=== PATIENT | male | born 1940 | race Caucasian/White ===

== ENCOUNTER 2025-09-21 18:24 | Inpatient (IN) | payer MEDICARE, OTHER, SELFPAY ==
[2025-09-21 17:35] VITALS: BMI 27.1
--- OUTSIDE RECORDS SUMMARY | 2025-09-21 17:37 | XMS RPT_ITS | CCD ---
Author Organization [facility] Care Team Providers Care Rental Counter Clerk Name Role Phone GUIDO([facility] [place] [place] Unavailable Unavailab Palmer([facility] [place] [place] Unavailable UnavailLINDSEY Solomon Unavailable Unavailable GUIDO([facility] [place] [place] Unavailable UnavailLINDSEY Solomon Unavailable Unavailable GUIDO([facility] [place] [place] Unavailable Unavailab Palmer([facility] [place]), [place] Unavailable UnavailLindsey Solomon Primary Care Provider [facility], [facility] Unavailable Unavailable Yung Ahmed A Unavailable Julita Stevens Unavailable Nancy Underwood Unavailable Yung MILLER, Ahmed A Unavailable Nancy Underwood APRN, CNP Unavailable [phone] Monalisa Arevalo APRN, CNP Unavailable [phone] [facility] LICENSED THERAPIST, Xiao Primary Care Provider LINDSEY LANDAVERDE Primary Care Provider [phone] MD SARAHI MCNAMARA Emergency Provider MYNOR GONZALEZ MD Attending Unavailable MYNOR GONZALEZ MD Primary Care Unavailable MYNOR GONZALEZ MD Admitting Unavailable ESC, XIAO Primary Care Provider [phone] MD VALENTE PARKER Emergency Provider MD MELISA CAREY Admit Provider MD MELISA CAREY Attending Provider MD VENANCIO LU Provider MD MONTRELL EDWARD Primary Care Provider [phone] MD KY DENIZ Emergency Provider Unavailable MD PRESTON BERKOWITZ Admit Provider MD PRESTON BERKOWITZ Attending Provider ESCH, XIAO Attending Provider MONTRELL EDWARD MD Primary Care Provider BRYANNA GAFFNEY MD Emergency Provider [phone] KHALIF ZAYAS MD Admit Provider KHALIF ZAYAS MD Attending Provider [phone] JAEL ASHLEY DO Primary Care Provider Unavaila BRYANNA Vaughan MD Emergency Provider RL MARTINES MD Admit Provider Unavailable RL MARTINES MD Attending Provider Unavailab le ESCH, XIAO Attending Unavailable MONTRELL EDWARD Primary Care Unavailable ESCH, XIAO Attending Unavailable GEOVANNYOSTCHULA LIMONLAS Arianna Primary Care Unavailable ESCH, XIAO Attending Unavailable VIROSTBRAXTON, MONTRELL J Primary Care Unavailable RL MARTINES Admitting Unavailable RL MARTINES Attending Unavailable JAEL ASHLEY Primary Care Unavailable DEMYDA, KHALIF Attending Unavailable VIROSTBRAXTON, MONTRELL J Primary Care Unavailable CHANA KHALIF Admitting Unavailable ESCH, XIAO Attending Unavailable VIROSTKO, MONTRELL J Primary Care Unavailable ESCH, XIAO Attending Unavailable MONTRELL EDWARD Primary Care Unavailable Allergies Allergy Classification Reported Allergen(s) Allergy Type Date of Onset Reaction(s) Facility (20 sources) Morphine; Translations: [MORPHINE] Drug Allergy 6 Other (See Comments) [facility] (10 sources) Sulfonamides (Antibiotic) Propensity to adverse reactions to drug 2 [facility] (20 sources) Sulfonamides (Antibiotic); Translations: [SULFANILAMIDES] Allergy to substance 1 [facility] (1 source) Morphine Drug Allergy 5 [facility] Repository Medications Current Medications Medication Drug Class(es) Dates Sig (Normalized) Sig (Original) acetaminophen 500 mg oral tablet (20 sources) Start: 06-01-2023 take 1 tablet by mouth twice daily Acetaminophen (Acetaminophen Extra Strength) 500 MG Tablet Active 500 MG PO Two Times A Day June 01, 2023 12:00am Start: 08-25-2021 take 1 tablet by karie th twice daily Acetaminophen (Tylenol 325 Mg Tablet) 325 MG Tablet Active 500 MG PO Two Times A Day August 25, 2021 5:08pm acetaminophen 325 mg / HYDROcodone bitartrate 5 mg oral tablet (8 sources) Opioid Agonist Start: 09-05-2022 hydrocodone 5 mg-acetaminophen 325 mg tablet 09/05/2022 active Not Available Not Available Not Available Start: 09-01-2022 take 1 tablet by karie th three times daily Hydrocodone Bit/Acetaminophen (Cecil 5/325 Mg Tablet) 1 EACH Tablet Active 1 EACH PO Three Times A Day September 01, 2022 12:00am aspirin 81 mg delayed release oral tablet (20 sources) Platelet Aggregation Inhibitor, Nonsteroidal Anti-inflammatory Drug Start: 11-15-2024 take 1 tablet by mouth once daily aspirin 81 mg tablet,delayed release TAKE 1 TABLET BY MOUTH EVERY DAY 11/15/2024 active Not Available Not Available Not Available Start: 02-04-2021 take 1 tablet by karie th once daily aspirin EC (ASPIRIN ADULT LOW STRENGTH) 81 MG EC tablet Take 1 tablet by mouth daily. 90 tablet 3 02/04/2021 Active Start: 10-13-2020 take 1 tablet by karie th once daily Aspirin (Aspirin 81 Mg Chew Tablet) 81 MG Tablet Active 81 MG PO Daily October 13, 2020 1:00am Start: 10-13-2020 take 1 tablet by karie th once daily Aspirin (Aspirin 81 Mg Chew Tablet) 81 MG Tablet Active 81 MG PO Daily October 13, 2020 1:00am Start: 07-31-2020 take 1 tablet by karie th once daily aspirin EC (ECOTRIN LOW STRENGTH) 81 MG EC tablet Take 1 tablet by mouth daily. 30 tablet 5 07/31/2020 Active Blood Glucose Calibration (CONTROL) Normal SOLN (10 sources) Start: 03-11-2020 Blood Glucose Calibration (CONTROL) Normal SOLN Indications: Type 2 diabetes mellitus without complication, without long-term current use of insulin (HCC) As directed 1 each 3 03/11/2020 Active Blood Glucose Monitoring Suppl JOSEPH (10 sources) Start: 03-12-2020 Blood Glucose Monitoring Suppl JOSEPH Indications: Type 2 diabetes mellitus without complication, without long-term current use of insulin (HCC) Test once daily Diagnosis: Type 2 DM 250.00 (ICD-10 E11.9) Length of need lifetime. 2 each 0 03/12/2020 Active cefdinir 300 mg oral capsule (5 sources) Cephalosporin Antibacterial Start: 07-22-2025 take 1 capsule by mouth twice daily Cefdinir (Omnicef 300 Mg Capsule) 300 MG Capsule Active 300 MG PO Two Times A Day July 22, 2025 12:00am cholecalciferol 0.05 mg oral tablet (20 sources) Vitamin D Start: 01-22-2025 take 1 tablet by mouth once daily Vitamin D3 50 mcg (2,000 unit) tablet TAKE 1 TABLET BY MOUTH DAILY. 01/22/2025 active Not Available Not Available Not Available Start: 01-13-2024 take 1 capsule by mo uth once daily Vitamin D3 50 mcg (2,000 unit) capsule TAKE 1 CAPSULE BY MOUTH DAILY. 01/13/2024 active Not Available Not Available Not Available Start: 02-19-2021 take 1 capsule by mo uth once daily Cholecalciferol (D3 SUPER STRENGTH) 50 MCG (2000 UT) CAPS Indications: Vitamin D deficiency Take 1 capsule by mouth daily. 90 capsule 3 02/19/2021 Active Start: 10-13-2020 End: 12-23-2023 take 1 tablet by mouth once daily Cholecalciferol (Vitamin D3) (Vitamin D3 1000 Unit Tablet) 1,000 UNIT Tablet Discontinued 2000 UNITS PO Daily October 13, 2020 1:00am December 23, 2023 5:38am Start: 07-31-2020 take 1 capsule by mo uth once daily Cholecalciferol (VITAMIN D) 50 MCG (2000 UT) CAPS Indications: Vitamin D deficiency Take 1 capsule by mouth daily. 30 capsule 5 07/31/2020 Active Start: 06-19-2020 take 1 capsule by mo uth once daily Cholecalciferol (VITAMIN D) 50 MCG (2000 UT) CAPS Indications: Vitamin D deficiency Take 1 capsule by mouth daily. 90 capsule 1 06/19/2020 Active Cholecalciferol (Vitamin D3) (Vitamin D3 1000 Unit Tablet) 1,000 UNIT Tablet (15 sources) Start: 07-19-2025 take 1 tablet by mouth once daily Cholecalciferol (Vitamin D3) (Vitamin D3 1000 Unit Tablet) 1,000 UNIT Tablet Active 2000 UNIT PO Daily July 19, 2025 12:00am Start: 10-22-2024 take 1 tablet by karie th once daily Cholecalciferol (Vitamin D3) (Vitamin D3 1000 Unit Tablet) 1,000 UNIT Tablet Active 2000 UNIT PO Daily October 22, 2024 1:00am Start: 10-22-2024 take 1 tablet by karie th once daily Cholecalciferol (Vitamin D3) (Vitamin D3 1000 Unit Tablet) 1,000 UNIT Tablet Active 2000 UNIT PO Daily October 22, 2024 12:00am cimetidine 400 mg oral tablet (20 sources) Histamine-2 Receptor Antagonist Start: 06-01-2023 take 1 tablet by mouth twice daily Cimetidine 400 MG Tablet Active 400 MG PO Two Times A Day June 01, 2023 12:00am Cyanocobalamin (Vitamin B-12) (Vitamin B12) 5,000 MCG Tab.Chew (5 sources) Start: 07-19-2025 take 1 tablet by mouth once daily Cyanocobalamin (Vitamin B-12) (Vitamin B12) 5,000 MCG Tab.Chew Active 5000 MCG PO Daily July 19, 2025 12:00am dexlansoprazole 60 mg delayed release oral capsule (20 sources) Proton Pump Inhibitor Start: 12-26-2024 take 1 capsule by mouth once daily dexlansoprazole 60 mg capsule,biphase delayed release TAKE 1 CAPSULE BY MOUTH EVERY DAY 12/26/2024 active Not Available Not Available Not Available Start: 06-01-2023 take 2 capsules by [facility] once daily Dexlansoprazole (Dexilant) 30 MG Active 60 MG PO Daily June 01, 2023 12:45am Start: 04-13-2023 take 1 capsule by [facility] twice daily Dexilant 30 mg capsule, delayed release Take 1 capsule twice a day by oral route. 04/13/2023 active Not Available Not Available Not Available Start: 08-26-2021 End: 06-01-2023 take 1 capsule by mouth once daily Dexlansoprazole (Dexilant) 30 MG Discontinued 30 MG PO Daily 30 0 August 26, 2021 1:00am June 01, 2023 12:45am Divalproex Sodium (Depakote) 125 MG Tablet.Dr (20 sources) Start: 08-11-2021 take 1 tablet by mouth once daily in the morning, then take 1 tablet by mouth twice daily Divalproex Sodium (Depakote) 125 MG Tablet.Dr Active 125 MG PO Two Times A Day August 10, 2021 11:00pm TAKE 1 TABLET BY MOUTH EVERY MORNING FOR 7 DAYS THEN TAKE 1 TABLET TWICE A DAY Start: 08-11-2021 take 1 tablet by karie th once daily in the morning, then take 1 tablet by mouth twice daily Divalproex Sodium (Depakote) 125 MG Tablet.Dr Active 125 MG PO Two Times A Day August 11, 2021 12:00am TAKE 1 TABLET BY MOUTH EVERY MORNING FOR 7 DAYS THEN TAKE 1 TABLET TWICE A DAY donepezil hydrochloride 5 mg oral tablet (20 sources) Start: 09-07-2020 take 1 tablet by mouth once daily in the evening Donepezil Hcl (Aricept 5 Mg Tablet) 5 MG Tablet Active 5 MG PO Every Evening October 13, 2020 1:00am Start: 05-22-2020 take 1 tablet by karie th once daily donepezil (ARICEPT) 5 MG tablet Indications: Dementia without behavioral disturbance, unspecified dementia type (HCC) Take 1 tablet by mouth nightly. 30 tablet 2 05/22/2020 Active esomeprazole 40 mg delayed release oral capsule (7 sources) Proton Pump Inhibitor Start: 09-28-2021 esomeprazole magnesium 40 mg capsule,delayed release 09/28/2021 active Not Available Not Available Not Available fenofibrate 145 mg oral tablet (20 sources) Peroxisome Proliferator Receptor alpha Agonist Start: 12-08-2017 take 1 tablet by mouth once daily Fenofibrate Nanocrystallized (Fenofibrate) 145MG Tablet Active 145 MG PO Daily December 08, 2017 1:00am finasteride 5 mg oral tablet (20 sources) 5-alpha Reductase Inhibitor Start: 12-08-2017 take 1 tablet by mouth once daily Finasteride 5 MG Tablet Active 5 MG PO Daily December 08, 2017 1:00am hydrALAZINE hydrochloride 25 mg oral tablet (20 sources) Arteriolar Vasodilator Start: 07-19-2025 Hydralazine Hcl 25 MG Tablet Active 12.5 MG PO Three Times A Day July 19, 2025 11:17am Start: 03-16-2025 take 0.5 tablet by m outh three times daily hydralazine 25 mg tablet TAKE 1/2 TABLET (12.5MG) BY MOUTH THREE TIMES DAILY 03/16/2025 active Not Available Not Available Not Available Start: 08-11-2021 End: 07-19-2025 take 1 tablet by mouth three times daily Hydralazine Hcl 25 MG Tablet Discontinued 25 MG PO Three Times A Day 90 30 0 June 02, 2023 3:57pm July 19, 2025 11:17am Start: 02-02-2021 take 1 tablet by karie th three times daily as needed hydrALAZINE (APRESOLINE) 25 MG tablet Take 1 tablet by mouth 3 times daily as needed. 0 02/02/2021 Active isopropyl alcohol 0.7 ml/ml medicated pad (10 sources) Start: 03-11-2020 Alcohol Swabs 70 % PADS Indications: Type 2 diabetes mellitus without complication, without long-term current use of insulin (HCC) As directed 100 Swab 3 03/11/2020 Active lactobacillus acidophilus [id number] unt oral capsule (20 sources) Start: 08-08-2024 take 1 capsule by mouth once daily Lactobacillus Acidophilus (Acidophilus) 100 MG Capsule Active 100 MG PO Daily October 22, 2024 1:00am Start: 08-11-2021 End: 12-23-2023 take 1 capsule by mouth once daily Lactobacillus Acidophilus (Acidophilus) 100 MG Capsule Discontinued 100 MG PO Daily August 11, 2021 12:00am December 23, 2023 5:40am lisinopril 10 mg oral tablet (10 sources) Angiotensin Converting Enzyme Inhibitor Start: 11-20-2020 End: 06-13-2021 take 0.5 tablet by mouth once daily lisinopril (PRINIVIL,ZESTRIL) 10 MG tablet Indications: Essential hypertension Take 0.5 tablets by mouth daily. 30 tablet 3 11/20/2020 06/13/2021 Discontinued Start: 05-06-2020 take 0.5 tablet by m outh once daily lisinopril (PRINIVIL,ZESTRIL) 10 MG tablet Take 0.5 tablets by mouth daily. 30 tablet 3 05/06/2020 Active Start: 04-08-2020 take 1 tablet by karie th once daily lisinopril (PRINIVIL,ZESTRIL) 10 MG tablet Take 1 tablet by mouth daily. 30 tablet 3 04/08/2020 Active Menthol (Biofreeze) 89 ML Gel..Ml. (12 sources) Start: 12-22-2023 Menthol (Biofr eeze) 89 ML Gel..Ml. Active 89 ML TP Four Times a Day as needed for Mild Pain (1-3) December 22, 2023 12:00am Apply to lower back four times daily as needed Start: 12-22-2023 Menthol (Biofr eeze) 89 ML Gel..Ml. Active 89 ML TP Four Times a Day December 22, 2023 1:00am Apply to lower back four times daily as needed metFORMIN hydrochloride 1000 mg oral tablet (10 sources) Biguanide Start: 02-04-2021 take 1 tablet by mouth twice daily at mealtime metFORMIN (GLUCOPHAGE) 1000 MG tablet TAKE 1 TABLET BY MOUTH TWICE DAILY WITH MEALS 180 tablet 3 02/04/2021 Active Start: 07-31-2020 take 1 tablet by karie th twice daily at mealtime metFORMIN (GLUCOPHAGE) 1000 MG tablet Take 1 tablet by mouth 2 times daily (with meals). 60 tablet 5 07/31/2020 Active Start: 01-27-2020 take 1 tablet by karie th twice daily at mealtime metFORMIN (GLUCOPHAGE) 1000 MG tablet TAKE 1 TABLET BY MOUTH TWICE DAILY WITH MEALS 180 tablet 0 01/27/2020 Active naproxen 375 mg oral tablet (20 sources) Nonsteroidal Anti-inflammatory Drug Start: 05-01-2019 take 1 tablet by mouth twice daily at mealtime naproxen (NAPROSYN) 375 MG tablet Indications: Fall against object , Mid-back pain, acute TAKE 1 TABLET BY MOUTH 2 TIMES DAILY (WITH MEALS). 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 Take 1 tablet by mouth once daily 90 tablet 0 02/26/2020 Active pravastatin sodium 80 mg oral tablet (20 sources) HMG-CoA Reductase Inhibitor Start: 12-26-2024 take 1 tablet by mouth once daily pravastatin 80 mg tablet TAKE 1 TABLET BY MOUTH EVERY DAY 12/26/2024 active Not Available Not Available Not Available Start: 10-23-2024 Pravastatin So dium 10 MG Tablet Active 80 MG PO Bedtime October 23, 2024 1:00am Start: 10-23-2024 Pravastatin So dium 10 MG Tablet Active 10 MG PO October 23, 2024 12:00am Start: 12-08-2017 End: 10-23-2024 take 1 tablet by mouth once daily in the evening Pravastatin Sodium 80 MG Tablet Discontinued 80 MG PO Every Evening December 08, 2017 1:00am October 23, 2024 11:44am tiZANidine 2 mg oral tablet (7 sources) Central alpha-2 Adrenergic Agonist Start: 09-05-2022 tizanidine 2 mg tablet 09/05/2022 active Not Available Not Available Not Available divalproex sodium 125 mg delayed release oral tablet (9 sources) Mood Stabilizer, Anti-epileptic Agent Start: 06-15-2024 take 1 tablet by mouth twice daily divalproex 125 mg tablet,delayed release TAKE 1 TABLET BY MOUTH TWICE DAILY 06/15/2024 active Not Available Not Available Not Available Start: 08-11-2021 take 1 tablet by karie th once daily in the morning, then take 1 tablet by mouth twice daily Divalproex Sodium (Depakote) 125 MG Tablet.Dr Active 125 MG PO Two Times A Day August 11, 2021 2:11pm TAKE 1 TABLET BY MOUTH EVERY MORNING FOR 7 DAYS THEN TAKE 1 TABLET TWICE A DAY Vitamin B 12 (20 sources) Vitamin B12 Start: 10-22-2024 take 1 tablet by mouth once daily Cyanocobalamin (Vitamin B-12) (Vitamin B-12 500 Mcg Tablet) 500 MCG Tablet Active 500 MCG PO Daily October 22, 2024 1:00am Start: 10-22-2024 take 1 tablet by karie th once daily Cyanocobalamin (Vitamin B-12) (Vitamin B-12 500 Mcg Tablet) 500 MCG Tablet Active 500 MCG PO Daily October 22, 2024 12:00am Start: 09-07-2024 take 1 tablet by karie th once daily Vitamin B-12 500 mcg tablet 1 PO daily 09/07/2024 active Not Available Not Available Not Available Start: 08-11-2021 End: 12-23-2023 take 1 tablet by mouth once daily Cyanocobalamin (Vitamin B-12) (Vitamin B-12) 500 MCG Tablet Discontinued 500 MCG PO Daily August 11, 2021 12:00am December 23, 2023 5:38am Start: 07-31-2020 take 1 tablet by karie th once daily Cyanocobalamin (B-12) 500 MCG TABS Indications: Low serum vitamin B12 Take 1 tablet by mouth daily. 30 tablet 5 07/31/2020 Active Start: 06-19-2020 take 1 tablet by karie th once daily Cyanocobalamin (B-12) 500 MCG TABS Indications: Low serum vitamin B12 Take 1 tablet by mouth daily. 90 tablet 1 06/19/2020 Active Completed/Discontinued Medications Medication Drug Class(es) Dates Sig (Normalized) Sig (Original) dextran 70 1 mg/ml / hypromellose 3 mg/ml ophthalmic solution (17 sources) Plasma Volume Experimental Psychologist Start: 12-22-2023 End: 10-22-2024 Dextran 70/Hypromellose/Pf (Genteal Tears 0.1%-0.3% Drop) 1 EACH Droperette Discontinued 1 DROP BOTHEYES Two Times A Day as needed for Allergic Symptoms December 22, 2023 1:00am October 22, 2024 4:52pm furosemide 20 mg oral tablet (20 sources) Loop Diuretic Start: 03-25-2023 End: 06-05-2023 take 1 tablet by mouth once daily furosemide 20 mg tablet TAKE 1 TABLET BY MOUTH EVERY DAY 03/25/2023 06/05/2023 completed Not Available Not Available Not Available Start: 08-25-2021 End: 06-02-2023 take 2 tablets by mouth once Furosemide (Lasix 20 Mg T ablet) 20 MG Tablet Discontinued 20 MG PO As Per Instructions August 25, 2021 1:00am June 02, 2023 3:56pm every other [id number] Start: 08-25-2021 take 1 tablet by karie th twice daily Furosemide (Lasix 20 Mg Tablet) 20 MG Tablet Active 20 MG PO Two Times A Day August 25, 2021 9:24am 12 hr guaiFENesin 600 mg extended release oral tablet (17 sources) Start: 12-22-2023 End: 10-22-2024 take 1 tablet by mouth twice daily Guaifenesin (Mucinex 600 Mg Tablet) 600 MG Tablet Discontinued 600 MG PO Two Times A Day December 22, 2023 1:00am October 22, 2024 4:53pm Lactobacillus Combination No.8 (Adult Probiotic) 1 EACH Capsule (20 sources) Start: 10-13-2020 End: 03-27-2021 take 1 capsule by mouth once daily Lactobacillus Combination No.8 (Adult Probiotic) 1 EACH Capsule Discontinued 1 EACH PO Daily October 13, 2020 11:07am March 27, 2021 7:46pm Start: 10-13-2020 End: 03-27-2021 take 1 capsule by mouth once daily Lactobacillus Combination No.8 (Adult Probiotic) 1 EACH Capsule Discontinued 1 EACH PO Daily October 13, 2020 1:00am March 27, 2021 7:46pm Start: 10-13-2020 End: 03-27-2021 take 1 capsule by mouth once daily Lactobacillus Combination No.8 (Adult Probiotic) 1 EACH Capsule Discontinued 1 EACH PO Daily October 13, 2020 12:00am March 27, 2021 6:46pm levoFLOXacin 500 mg oral tablet (20 sources) Quinolone Antimicrobial Start: 10-15-2020 End: 03-27-2021 take 1 tablet by mouth once daily Levofloxacin (Levaquin) 500 MG Tablet Discontinued 500 MG PO Daily 5 0 October 15, 2020 1:00am March 27, 2021 7:34pm loperamide hydrochloride 2 mg oral capsule (20 sources) Opioid Agonist Start: 08-11-2021 End: 07-19-2025 take 2 capsules by mouth every six hours as needed, then take 1 capsule by mouth every six hours as needed Loperamide Hcl (Loperamide) 2 MG Capsule Discontinued 2 MG PO Q6H as needed for Diarrhea August 11, 2021 12:00am July 19, 2025 11:14am TAKE 2 CAPSULES BY MOUTH NEEDED FOR FIRST LOOSE STOOL THEN TAKE 1 CAPSULE EACH SUBSEQUENT LOOSE STOOLER EVERY 6 HOURS. menthol 0.04 mg/mg topical gel (5 sources) Start: 12-22-2023 End: 07-19-2025 Menthol (Biofreeze) 89 ML Gel..Ml. Discontinued 89 ML TP Four Times a Day as needed for Mild Pain (1-3) December 22, 2023 1:00am July 19, 2025 11:16am Apply to lower back four times daily as needed omeprazole 20 mg delayed release oral capsule (20 sources) Proton Pump Inhibitor Start: 12-08-2017 End: 06-01-2023 take 1 capsule by mouth once daily in the morning Omeprazole 20 MG Capsule.Dr Discontinued 20 MG PO Every Morning December 08, 2017 1:00am June 01, 2023 2:01am Radionuclide Tc-99m Sestamibi (Cardiolite) 11 millicurie (1 source) Start: 04-24-2020 End: 04-24-2020 Radionuclide Tc-99m Sestamibi (Cardiolite) 11 millicurie Radionuclide Tc-99m Sestamibi (Cardiolite) 33 millicurie (1 source) Start: 04-24-2020 End: 04-24-2020 Radionuclide Tc-99m Sestamibi (Cardiolite) 33 millicurie regadenoson (1 source) Adenosine Receptor Agonist Start: 04-24-2020 End: 04-24-2020 regadenoson (LEXISCAN) solution 0.4 mg tamsulosin hydrochloride 0.4 mg oral capsule (20 sources) alpha-Adrenergic Bertram Start: 10-13-2020 End: 07-19-2025 take 1 capsule by mouth once daily Tamsulosin Hcl (Flomax 0.4 Mg Capsule) 0.4 MG Capsule Discontinued 0.4 MG PO Daily July 19, 2025 12:00am July 19, 2025 11:17am Start: 07-31-2020 take 1 capsule by mo ut once daily Tamsulosin HCl (FLOMAX) 0.4 MG 24 hr capsule Indications: 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 Take 1 capsule by mouth once daily 90 capsule 0 01/28/2020 Active Problems Active Problems Problem Classification Problem Date Documented Date Episodic/Chronic Abdominal hernia (20 sources) Hiatal hernia; Translations: [Diaphragmatic hernia without obstruction or gangrene] Onset: 06-05-2023 Resolved: 06-30-2025 08-25-2021 Episodic Acute and unspecified renal failure (20 sources) Acute injury of kidney; Translations: [Acute kidney failure, unspecified] Onset: 06-05-2023 Episodic Appendicitis and other appendiceal conditions (20 sources) Acute appendicitis 08-26-2021 Episodic Asthma (20 sources) Asthma without status asthmaticus 08-26-2021 Chronic Chronic kidney disease (20 sources) Chronic kidney disease stage 3; Translations: [Stage 3 chronic kidney disease] Onset: 01-03-2022 08-26-2021 Chronic Conditions associated with dizziness or vertigo (20 sources) Dizziness; Translations: [Dizziness and giddiness] Onset: 09-28-2020 08-26-2021 Episodic Conduction disorders (7 sources) Right bundle branch block Onset: 09-28-2020 Chronic Coronary atherosclerosis and other heart disease (20 sources) Coronary atherosclerosis; Translations: [Coronary arteriosclerosis in cheesh-na artery] Onset: 09-28-2020 Resolved: 06-30-2025 Chronic Delirium dementia and amnestic and other cognitive disorders (20 sources) Dementia; Translations: [Unspecified dementia without behavioral disturbance] Onset: 05-22-2020 Resolved: 06-30-2025 05-22-2020 Chronic Diabetes mellitus with complications (20 sources) Type 2 diabetes mellitus; Translations: [Type 2 diabetes mellitus with diabetic chronic kidney disease] Onset: 09-28-2020 Resolved: 06-30-2025 Chronic Diabetes mellitus without complication (20 sources) Diabetes mellitus; Translations: [Type 2 diabetes mellitus without complication] Onset: 06-26-2014 06-26-2014 Chronic Diabetes mellitus without complication (10 sources) Prediabetes; Translations: [Prediabetes] 07-19-2025 Episodic Diabetes mellitus without complication (1 source) Diabetes mellitus without complication Onset: 04-27-2017 Disorders of lipid metabolism (20 sources) Hyperlipidemia; Translations: [Hyperlipidemia, unspecified] Onset: 06-26-2014 Resolved: 06-30-2025 06-26-2014 Chronic E Codes: Fall (10 sources) Fall on same level; Translations: [Fall on same level, unspecified, initial encounter] 07-19-2025 Episodic E Codes: Struck by; against (11 sources) Fall; Translations: [Striking against unspecified object with subsequent fall, initial encounter] Onset: 11-21-2017 Resolved: 08-10-2020 08-10-2020 Episodic Esophageal disorders (20 sources) Powell's esophagus; Translations: [Gastroesophageal reflux disease] Onset: 12-14-2020 Resolved: 06-30-2025 08-26-2021 Chronic Essential hypertension (20 sources) Hypertensive disorder; Translations: [Essential (primary) hypertension] Onset: 06-26-2014 Resolved: 06-30-2025 06-26-2014 Chronic External cause codes: Fall (9 sources) Fall; Translations: [Fall against object] Onset: 11-21-2017 11-21-2017 Fluid and electrolyte disorders (20 sources) Dehydration; Translations: [Dehydration] Onset: 08-30-2021 Episodic Hyperplasia of prostate (18 sources) Benign prostatic hyperplasia; Translations: [Benign prostatic hyperplasia with lower urinary tract symptoms] Onset: 12-31-2015 Resolved: 06-30-2025 03-12-2019 Chronic Hypertension with complications and secondary hypertension (11 sources) Hypertensive heart AND renal disease; Translations: [Chronic kidney disease, stage 3a] Onset: 09-29-2023 Resolved: 06-30-2025 Chronic Malaise and fatigue (20 sources) Asthenia; Translations: [Weakness] Onset: 10-12-2022 Resolved: 06-30-2025 08-26-2021 Episodic Miscellaneous mental health disorders (19 sources) Confusional state; Translations: [Inappropriate sexual behavior] Onset: 02-23-2021 Resolved: 06-30-2025 Chronic Nonspecific chest pain (20 sources) Chest pain; Translations: [Chest pain, unspecified] 08-25-2021 Episodic Nutritional deficiencies (11 sources) Vitamin D deficiency; Translations: [Vitamin D deficiency, unspecified] Onset: 11-10-2020 Resolved: 06-30-2025 Chronic Other circulatory disease (8 sources) Respiratory crackles; Translations: [Other specified symptoms and signs involving the circulatory and respiratory systems] Onset: 06-30-2025 Resolved: 06-30-2025 Episodic Other connective tissue disease (20 sources) Pain of right lower leg; Translations: [Pain in right lower leg] 08-26-2021 Episodic Other fractures (20 sources) Compression fracture of lumbar spine; Translations: [Wedge compression fracture of first lumbar vertebra, initial encounter for closed fracture] Onset: 11-20-2022 09-01-2022 Episodic Other hereditary and degenerative nervous system conditions (7 sources) Multisystem degeneration of autonomic nervous system Onset: 09-28-2020 Chronic Other nervous system disorders (20 sources) Unable to walk; Translations: [Difficulty in walking, not elsewhere classified] 09-01-2022 Chronic Other nervous system disorders (20 sources) Metabolic encephalopathy; Translations: [Metabolic encephalopathy] Onset: 07-16-2025 12-23-2023 Chronic Other nervous system disorders (7 sources) Metabolic encephalopathy; Translations: [Metabolic encephalopathy] 12-24-2023 Chronic Other nervous system disorders (20 sources) Abnormal gait; Translations: [Unspecified abnormalities of gait and mobility] 08-26-2021 Episodic Other skin disorders (6 sources) Skin lesion; Translations: [Disorder of the skin and subcutaneous tissue, unspecified] Onset: 05-12-2025 Resolved: 05-12-2025 Episodic Pneumonia (except that caused by tuberculosis or sexually transmitted disease) (20 sources) Bacterial pneumonia; Translations: [Unspecified bacterial pneumonia] 07-20-2025 Episodic Residual codes; unclassified (17 sources) Obstructive sleep apnea syndrome; Translations: [Obstructive sleep apnea (adult) (pediatric)] Onset: 08-18-2020 Resolved: 06-30-2025 08-18-2020 Chronic Residual codes; unclassified (20 sources) Altered mental status; Translations: [Altered mental status, unspecified] Onset: 06-10-2020 Resolved: 08-10-2020 06-10-2020 Episodic Residual codes; unclassified (20 sources) Edema of lower extremity; Translations: [Localized edema] 08-26-2021 Episodic Residual codes; unclassified (20 sources) Confusional state; Translations: [Disorientation, unspecified] 08-25-2021 Episodic Residual codes; unclassified (1 source) Swelling - edema - symptom; Translations: [Edema, unspecified] 08-26-2021 Episodic Residual codes; unclassified (20 sources) Edema; Translations: [Edema, unspecified] Onset: 12-27-2021 08-26-2021 Episodic Residual codes; unclassified (12 sources) Altered mental status, unspecified; Translations: [Altered mental status] 12-24-2023 Episodic Septicemia (except in labor) (20 sources) Sepsis; Translations: [Sepsis, unspecified organism] 08-26-2021 Episodic Spondylosis; intervertebral disc disorders; other back problems (20 sources) Degeneration of lumbar intervertebral disc; Translations: [Other intervertebral disc degeneration, lumbar region] 09-01-2022 Chronic Spondylosis; intervertebral disc disorders; other back problems (20 sources) Low back pain; Translations: [Low back pain] 09-01-2022 Episodic Syncope (20 sources) Syncope; Translations: [Syncope and collapse] 08-26-2021 Episodic Unclassified (1 source) Urge incontinence / N39.41(ICD-10) Onset: 04-27-2017 Unclassified (1 source) Benign prostatic hyperplasia with lower urinary tract symptoms / N40.1(ICD-10) Onset: 04-27-2017 Unclassified (20 sources) Hypertensive disorder, systemic arterial 08-26-2021 Unclassified (7 sources) Admission for care Onset: 12-25-2023 Urinary tract infections (20 sources) Urinary tract infectious disease; Translations: [Urinary tract infection, site not specified] 08-26-2021 Episodic Viral infection (20 sources) Disease caused by 2019-nCoV; Translations: [COVID-19] Onset: 07-16-2025 07-19-2025 Episodic Viral infection (9 sources) Disease caused by 2019-nCoV; Translations: [COVID-19] Onset: 09-06-2022 Resolved: 07-28-2025 Past or Other Problems Problem Classification Problem Date Documented Date Episodic/Chronic Congestive heart failure; nonhypertensive (7 sources) Congestive heart failure Onset: 09-29-2023 Resolved: 07-04-2025 Chronic Deficiency and other anemia (11 sources) Anemia; Translations: [Anemia, unspecified] Onset: 06-05-2023 Resolved: 06-30-2025 Episodic Headache; including migraine (7 sources) Headache Onset: 07-06-2021 Episodic Nutritional deficiencies (11 sources) Vitamin B deficiency; Translations: [Vitamin B deficiency, unspecified] Onset: 09-28-2020 Resolved: 06-30-2025 Episodic Open wounds of extremities (8 sources) Avulsion of toenail; Translations: [Unspecified open wound of unspecified toe(s) with damage to nail, initial encounter] Onset: 02-24-2025 Resolved: 02-24-2025 Episodic Other circulatory disease (10 sources) Vascular insufficiency; Translations: [Venous insufficiency (chronic) (peripheral)] Onset: 12-14-2017 12-14-2017 Episodic Other connective tissue disease (10 sources) Pain in right lower limb; Translations: [Pain in right leg] Onset: 12-19-2017 Resolved: 08-10-2020 12-19-2017 Episodic Other connective tissue disease (7 sources) Muscle weakness; Translations: [Muscle weakness (generalized)] Onset: 06-05-2023 Episodic Other nutritional; endocrine; and metabolic disorders (7 sources) Body mass index 25-29 - overweight Onset: 09-28-2020 Episodic Other skin disorders (7 sources) Broken skin Onset: 06-16-2021 Episodic Other skin disorders (7 sources) Sweating Onset: 06-05-2023 Episodic Other upper respiratory infections (7 sources) Common cold; Translations: [Acute nasopharyngitis [common cold]] Onset: 03-08-2023 Episodic Residual codes; unclassified (7 sources) Disorientated Onset: 09-28-2020 Episodic Results Test Name Value Interpretation Reference Range Facility XR Chest 2 Viewson NEGATED: Highlighted rowXR, chest, 2 view [facility] Portable X-Ray Procalcitonin [Mass/Vol]on 1 Interpretation and review of laboratory results ABNORMAL Invalid Interpretation Code [place] [facility] Work Phone: procalcitonin, serumon 07-23 Procalcitonin [Mass/Vol] 0.12 NG/mL High low: 0NG/mL high: 0.08NG/mL [place] [facility] Work Phone: Comment on above: A procalcitonin (PCT ) level above 2.0 ng/mL on the first day of ICU admission is associated with a high risk for progression to severe sepsis and/or septic shock. A PCT level below 0.5 ng/mL on the first day of ICU admission is associated with a low risk for progression to severe sepsis and/or septic shock. Note: Concentrations <0.5 ng/mL do not exclude an infection, on account of localized infections (without systemic signs) which can be associated with such low concentrations, or a systemic infection in its initial stages (<6 hours). Furthermore, increased procalcitonin can occur without infection. PCT concentrations between 0.5 and 2.0 ng/mL should be interpreted taking into account the patient's history. It is recommended to retest PCT within 6-24 hours if any concentrations <2 ng/mL are obtained. Performed at: [facility] [address] [id number] Field Support Technician: Bobbi Arrieta MD, Phone: [phone] Absolute immature granulocyt e countOrdered By: RL MARTINES on 07-22-2025 Immature granulocytes (Bld) [#/Vol] 0.01 kL 0.00-0.10 [facility] Absolute lymphocyte countOrd ered By: RL MARTINES on 07-22-2025 Lymphocytes Auto (Unsp spec) [#/Vol] 1.30 kL 1.30-2.90 [facility] Automated blood lymphocyte c ount as percentage of total leukocytesOrdered By: RL MARTINES on 07-22-2025 Lymphocytes/100 WBC (Bld) 28.5 % Normal 17.0-45.5 [facility] Comment on above: Performed By: #### C BCS #### [place] [id number] Automated blood monocyte cou nt as percentage of total leukocytesOrdered By: RL MARTINES on 07-22-2025 Monocytes/100 WBC (Bld) 9.1 % Normal 5.5-11.7 [facility] Comment on above: Performed By: #### C BCS #### [address] [address] Automated erythrocyte mean c orpuscular hemoglobin (MCH) measurement (mass/erythrocyteOrdered By: RL MARTINES on 07-22-2025 MCH (RBC) [Entitic mass] 32.2 pg High 27.0-31.0 [facility] Comment on above: Performed By: #### C BCS #### [place] [id number] Automated erythrocyte mean c orpuscular hemoglobin concentration (MCHC) measurement (mOrdered By: RL MARTINES on 07-22-2025 MCHC (RBC) [Mass/Vol] 33.0 g/dL Normal 33.0-37.[address] [facility] Comment on above: Performed By: #### C BCS #### [address] [address] Basophils Auto (Bld) [#/Vol] Ordered By: RL MARTINES on 07-22-2025 Basophils (Bld) [#/Vol] 0.01 kL 0.00-0.10 [facility] Blood absolute eosinophil co untOrdered By: RL MARTINES on 07-22-2025 Eosinophils (Bld) [#/Vol] 0.30 kL High 0.00-0.20 [facility] Blood basophils/100 leukocyt esOrdered By: RL MARTINES on 07-22-2025 Basophils/100 WBC (Bld) 0.2 % Normal 0.2-1.0 [facility] Comment on above: Performed By: #### C BCS #### [place] [id number] Blood erythrocytes count (nu mber/volume)Ordered By: RL MARTINES on 07-22-2025 RBC (Bld) [#/Vol] 3.42 mL Low 4.13-5.69 [facility] Blood hematocrit (volume fra ction)Ordered By: RL MARTINES on 07-22-2025 Hematocrit (Bld) [Volume fraction] 33.3 % Low 36.7-50.6 [facility] Comment on above: Performed By: #### C BCS #### [facility] [address] [place] [address] Blood leukocytes count (numb er/volume)Ordered By: RL MARTINES on 07-22-2025 WBC (Bld) [#/Vol] 4.4 kL 3.6-10.8 [facility] Blood platelet mean volumeOr dered By: RL MARTINES on 07-22-2025 Platelet mean volume (Bld) [Entitic vol] 9.1 fL Normal 7.4-10.4 [facility] Comment on above: Performed By: #### C BCS #### [place] [id number] [place] [address] CBC W Auto Differential pane l (Bld)on 07-22-2025 Eosinophils (Bld) [#/Vol] 0.3 10*3/uL High low: 0K/uL high: 0.2K/uL [place] [facility] Work Phone: Hemoglobin (Bld) [Mass/Vol] 11 g/dL Low low: 12.4g/dL high: 17.3g/dL [place] [facility] Work Phone: immature grans (abs) 0.01 K/uL Invalid Interpretation Code low: 0K/uL high: 0.1K/uL [place] [facility] Work Phone: Immature granulocytes/100 WBC (Bld) 0.2 % Invalid Interpretation Code low: 0% high: 1% [place] [facility] Work Phone: Interpretation and review of laboratory results ABNORMAL Invalid Interpretation Code [place] [facility] Work Phone: Lymphocytes (Bld) [#/Vol] 1.3 10*3/uL Invalid Interpretation Code low: 1.3K/uL high: 2.9K/uL [place] [facility] Work Phone: MCHC (RBC) [Mass/Vol] 33 g/dL Invalid Interpretation Code low: 33g/dL high: 37g/dL [place] [facility] Work Phone: Monocytes (Bld) [#/Vol] 0.4 10*3/uL Invalid Interpretation Code low: 0.3K/uL high: 0.8K/uL [place] [facility] Work Phone: CBC w/ auto diffon 5 basophils abs. # 0.01 K/uL Normal 0.00-0.10 [place] [facility] Work Phone: Comment on above: Performed By: #### C BCS #### [address] [address] Eosinophils/100 WBC (Bld) 5.9 % High 0.9-2.9 [place] [facility] Work Phone: Comment on above: Performed By: #### C BCS #### [address] [address] neutrophils abs. # 2.46 K/uL Normal 2.20-4.80 [place] [facility] T YOUR DOOR: [facility] Work Phone: Comment on above: Performed By: #### C BCS #### [address] [address] Neutrophils/100 WBC (Bld) 56.1 % Normal 43.0-65.0 [place] [facility] Work Phone: Comment on above: Performed By: #### C BCS #### [address] [address] Platelets (Bld) [#/Vol] 254 10*3/uL Normal 148-402 [place] [facility] Work Phone: Comment on above: Performed By: #### C BCS #### [place] [address] RBC (Bld) [#/Vol] 3.42 10*6/uL Low 4.13-5.69 [place] [facility] Work Phone: Comment on above: Performed By: #### C BCS #### [place] [id number] WBC (Bld) [#/Vol] 4.4 10*3/uL Normal 3.6-10.8 [place] [facility] Work Phone: Comment on above: Performed By: #### C BCS #### [place] [address] CBC w/Auto Differentialon Eosinophils (Bld) [#/Vol] 0.30 10*3/uL High 0.00-0.20 [facility] Comment on above: Performed By: #### C BCS #### [place] [id number] Imm Grans % 0.20 % Normal 0.00-1.00 [facility] Comment on above: Performed By: #### C BCS #### [place] [address] Imm Grans Absolute # 0.01 K/uL Normal 0.00-0.10 [facility] Comment on above: Performed By: #### C BCS #### [place] [id number] Lymphocytes (Bld) [#/Vol] 1.30 10*3/uL Normal 1.30-2.90 [facility] Comment on above: Performed By: #### C BCS #### [facility] [address] [place] [address] Monocytes (Bld) [#/Vol] 0.40 10*3/uL Normal 0.30-0.80 [facility] Comment on above: Performed By: #### C BCS #### [place] [id number] [place] [address] Calcium measurement (mass fr action)Ordered By: RL MARTINES on 07-22-2025 Calcium (Unsp spec) [Mass fraction] 8.7 mg/dL 8.2-10.0 [facility] Comprehensive Metabolic Pane sánchez 07-22-2025 Albumin [Mass/Vol] 2.6 g/dL Low 3.4-5.0 [facility] Comment on above: Performed By: #### C MP #### [place] [id number] [place] [address] AST [Catalytic activity/Vol] 38 U/L Normal 3-39 [facility] Comment on above: Performed By: #### C MP #### [place] [address] [place] [address] Calcium [Mass/Vol] 8.7 mg/dL Normal 8.2-10.0 [facility] Comment on above: Performed By: #### C MP #### [place] [id number] [place] [address] EGFR Other Races 53 Abnormal >60 [facility] Comment on above: Performed By: #### C MP #### [place] [address] [place] [address] GFR/1.73 sq M.predicted among blacks MDRD (S/P/Bld) [Vol rate/Area] mL/min/{1.73_m2} Normal >60 [facility] Comment on above: Result Comment: [employer] Agent andree Kidney Disease less than 60 mL/min/1.73 m2 Kidney Failure less than 15 mL/min/1.73 m2 Average estimated GFR by age: 70+ years 75 mL/min/1.73 m2 Performed By: #### C MP #### [address] [address] Determination of erythrocyte mean corpuscular volume (MCV)Ordered By: RL MARTINES on 07-22-2025 MCV (RBC) [Entitic vol] 97.4 fL High 80.0-94.0 [facility] Comment on above: Performed By: #### C BCS #### [address] [address] Eosinophil count as percenta ge of total leukocytesOrdered By: RL MARTINES on 07-22-2025 Eosinophils/100 WBC (Unsp spec) 5.9 % High 0.9-2.9 [facility] Erythrocyte distribution wid th standard deviationOrdered By: RL MARTINES on 07-22-2025 Erythrocyte distribution width (RBC) [Ratio] 14.3 % Normal 11.5-14.5 [facility] Comment on above: Performed By: #### C BCS #### [address] [address] Glomerular filtration rate ( GFR) estimation/1.73 sq m using serum, plasma, or whole bOrdered By: RL MARTINES on 07-22-2025 GFR/1.73 sq M.predicted among blacks CKD-EPI (S/P/Bld) [Vol rate/Area] > 60 >60 [facility] Comment on above: Chronic Kidney Disea se less than 60 mL/min/1.73 [id number] Failure less than 15 mL/min/1.73 o4Pnoqcas estimated GFR by age:70+ years 75 mL/min/1.73 m2 GFR/1.73 sq M.predicted among non-blacks CKD-EPI (S/P/Bld) [Vol rate/Area] 53 Abnormal >60 [facility] Immature granulocytes (Bld) [#/Vol]Ordered By: RL MARTINES on 07-22-2025 Immature granulocytes/100 WBC (Bld) 0.20 % 0.00-1.00 [facility] Monocytes Auto (Bld) [#/Vol] Ordered By: RL MARTINES on 07-22-2025 Monocytes (Bld) [#/Vol] 0.40 kL 0.30-0.80 [facility] Neutrophils Auto (Bld) [#/Vo l]Ordered By: RL MARTINES on 07-22-2025 Neutrophils (Bld) [#/Vol] 2.46 kL 2.20-4.80 [facility] Neutrophils seg % bldOrdered By: RL MARTINES on 07-22-2025 Segmented neutrophils/100 WBC (Bld) 56.1 % 43.0-65.0 [facility] PROGRESS NOTEon 07-22-2025 [place] [address] HEALTH INFORMATION MANAGEMENT PROGRESS NOTE : [id number] Signed Patient: WILEY MEEK Acct:[id number] MRUN: [id number] : 1940 Sex: M Loc: ICU ADM Date: Room/Bed: 357-A DISC Date: _ Subjective Assessment Date Of Service: 07/22/25 Events Since Admission: WILEY MEEK was admitted to MEDICAL SURGICAL service into room 357 on 07/19/25 at 12:38 for complaints of METABOLIC ENCEPHALOPATHY GENERALIZED WEAKNESS. The patient's laboratory testing and diagnostic testing has been reviewed. Subjective Note: patient is seen was seen and evaluated by PT the day prior. Patient was deemed safe to return to his assisted living facility Objective Findings Vitals and I O: Vital Signs Temperature 97.3 F L 07/22/25 08:07 Pulse Rate 74 07/22/25 08:08 Respiratory Rate 16 07/22/25 08:08 Blood Pressure 132/89 07/22/25 08:07 O2 Sat by Pulse Oximetry(%) 96 07/22/25 08:07 FiO2 - Manual Entry Intake Output 07/21/25 07/21/25 07/22/25 11:59 23:59 11:59 Intake Total 300 740 360 Output Total 4846 851 1037 Balance -800 115 -665 Weight 184 lb 4.8 oz 186 lb Intake: IV Intake 300 Rocephin 1 Gram Injection 50 1 gm In Sodium Chloride 0.9 % 50 ml 50 ml @ 100 mls/hr IVPB Q24H OSVALDO Rx#: [id number] Zithromax 500 mg 250 Injection 500 mg In Sodium Chloride 0.9 % 250 ml 250 ml @ 250 mls/hr IVPB Q24H OSVALDO Rx#: [id number] Intake ml 300 440 360 Output: Output ml 5675 166 1486 Urine 7226 010 3747 Other: Output Urine Nonnumeric/ Comment Urine x1, incontinent , sm LG INCONT Other physical findings: PHYSICAL EXAMINATION GENERAL; cooperative HEENT; atraumatic normocephalic EYES; nonicteric, normal conjunctiva NECK; supple, normal thyroid RESPIRATORY; diminished to auscultation CARDIOVASCULAR; regular S1-S2, GASTROINTESTINAL; soft normal active bowel sounds GENITOURINARY; no renal angle tenderness EXTREMITIES; no edema, no clubbing, no cyanosis NEUROLOGY; awake, no lateralizing signs SKIN; no rash PSYCHIATRY; flat affect Laboratory-Last 48 hrs: 07/22/25 05:25 07/22/25 05:25 Laboratory Results-last 24 hrs 07/21/25 05:17: Creatinine 1.50 H, Est GFR (MDRD) Af Amer 54 A, Est GFR (MDRD) Non-Af 45 A, Glucose 145 H, AST 42 H, Alkaline Phosphatase 40 L, Total Protein 5.9 L, Albumin 2.5 L, Albumin/Globulin Ratio 0.7 L 07/21/25 05:17: RBC 3.46 L, Hgb 11.2 L, Hct 33.7 L, MCV 97.4 H, MCH 32.4 H, [place] % (Auto) 12.6 H, Eos % (Auto) 4.0 H, Absolute Lymphs (auto) 0.90 L 07/22/25 05:25: Creatinine 1.30 H, Est GFR (MDRD) Non-Af 53 A, Glucose 114 H, Alkaline Phosphatase 42 L, Total Protein 6.0 L, Albumin 2.6 L, Albumin/Globulin Ratio 0.8 L 07/22/25 05:25: RBC 3.42 L, Hgb 11.0 L, Hct 33.3 L, MCV 97.4 H, MCH 32.2 H, Eos % (Auto) 5.9 H, Absolute Eos (auto) 0.30 H Radiology-Impressions: See radiology reports in electronic medical record. Impressions - Problems (1) Essential hypertension Status: Acute Priority: Medium Current Visit: Yes (2) COVID-19 virus infection Status: Acute Current Visit: No Plan/Treatment Plan: Patient is a 85-year-old gentleman admitted with progressive generalized weakness and fall. Assessment on admission came back consistent with COVID-19 admitted to a monitored bed where patient has since been managed 1. Acute metabolic encephalopathy Secondary to COVID-19 pneumonia patient is level of sensorium improved with treatment 2. COVID-19 pneumonia with suspected superimposed bacterial pneumonia with Gram-positive organisms The patient is managed with ceftriaxone as well as azithromycin 3. 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 Home dose continued 5. Dementia Without behavioral agitation patient is on Aricept did continue 6. Dyslipidemia The patient is on fenofibrate 7. Physical deconditioning/debility - Requested for PT/OT eval and treatment. Consult also placed to director social/case management to assist with discharge planning and disposition -plan is for patient to be discharged to his longterm facility 8. GERD - Patient is on PPI, continued 9. DVT prophylaxis - SC Lovenox Impressions Chest X-Ray 07/21/25 06:00 IMPRESSION: Unchanged ill-defined opacification seen with left lung base with small left pleural effusion. Visit Coding - VISIT CODING Date of Service: 07/22/25 Billing Provider:: LINDSEY CAVAZOS (more content not included)... Normal [facility] Platelets Auto (Bld) [#/Vol] Ordered By: RL MARTINES on 07-22-2025 Platelets (Bld) [#/Vol] 254 kL 148-402 [facility] Protein total ser/plasOrdere d By: RL MARTINES on 07-22-2025 Protein [Mass/Vol] 6.0 g/dL Low 6.1-8.2 [facility] Comment on above: Performed By: #### C MP #### [facility] [address] [place] [address] Serum globulin measurement ( mass/volume)Ordered By: RL MARTINES on 07-22-2025 Globulin (S) [Mass/Vol] 3.4 g/dL Normal 1.5-4.5 [facility] Comment on above: Performed By: #### C MP #### [id number] [place] [address] Serum or plasma alanine naidu otransferase (ALT) measurementOrdered By: RL MARTINES on 07-22-2025 ALT [Catalytic activity/Vol] 33 U/L Normal 13-66 [facility] Comment on above: Performed By: #### C MP #### [id number] [place] [address] Serum or plasma albumin lyle urement by bromocresol purple (BCP) dye binding method (mOrdered By: RL MARTINES on 07-22-2025 Albumin BCP dye [Mass/Vol] 2.6 g/dL Low 3.4-5.0 [facility] Serum or plasma albumin/glob ulin mass ratioOrdered By: RL MARTINES on 07-22-2025 Albumin/Globulin [Mass ratio] 0.8 {ratio} Low 1.1-2.5 [facility] Comment on above: Performed By: #### C MP #### [facility] [address] [place], [place] [id number] Serum or plasma alkaline seda sphatase measurement (enzymatic activity/volume)Ordered By: RL MARTINES on 07-22-2025 ALP [Catalytic activity/Vol] 42 U/L Low 54-112 [facility] Comment on above: Performed By: #### C MP #### [id number] [place] [address] Serum or plasma anion gapOrd ered By: RL MARTINES on 07-22-2025 Anion gap [Moles/Vol] 11.1 mmol/L Normal 8.0-16.0 [facility] Comment on above: Performed By: #### C MP #### [place] [address] Serum or plasma aspartate am inotransferase measurement with P-5'-P (enzymatic activitOrdered By: RL MARTINES on 07-22-2025 AST With P-5'-P [Catalytic activity/Vol] 38 U/L 3-39 [facility] Serum or plasma bilirubin me asurement (mass/volume)Ordered By: RL MARTINES on 07-22-2025 Bilirubin [Mass/Vol] 0.31 mg/dL Normal 0.00-0.99 [facility] Comment on above: Performed By: #### C MP #### [place] [id number] [place] [id number] Serum or plasma carbon dioxi de measurement (moles/volume)Ordered By: RL MARTINES on 07-22-2025 CO2 [Moles/Vol] 27 mmol/L Normal 21-34 [facility] Comment on above: Performed By: #### C MP #### [id number] [place] [address] Serum or plasma chloride eryn surement (moles/volume)Ordered By: RL MARTINES on 07-22-2025 Chloride [Moles/Vol] 106 mmol/L Normal 94-110 [facility] Comment on above: Performed By: #### C MP #### [facility] [address] [place] [address] Serum or plasma creatinine m easurement (mass/volume)Ordered By: RL MARTINES on 07-22-2025 Creatinine [Mass/Vol] 1.30 mg/dL High 0.50-1.[address] [facility] Comment on above: Performed By: #### C MP #### [id number] [place] [address] Serum or plasma glucose lyle urement (mass/volume)Ordered By: RL MARTINES on 07-22-2025 Glucose [Mass/Vol] 114 mg/dL High 65-100 [facility] Comment on above: Performed By: #### C MP #### [address] [address] Serum or plasma sodium measu rement (moles/volume)Ordered By: RL MARTINES on 07-22-2025 Sodium [Moles/Vol] 140 mmol/L Normal 132-145 [facility] Comment on above: Performed By: #### C MP #### [address] [address] Serum or plasma urea nitroge n measurement (mass/volume)Ordered By: RL MARTINES on 07-22-2025 Urea nitrogen [Mass/Vol] 24.6 mg/dL Normal 3.2-26.9 [facility] Comment on above: Performed By: #### C MP #### [address] [place] [address] Serum or plasma urea nitroge n/creatinine mass ratioOrdered By: RL MARTINES on 07-22-2025 Urea nitrogen/Creatinine [Mass ratio] 19 mg/mg Normal 6-20 [facility] Comment on above: Performed By: #### C MP #### [address] [place] [address] Whole blood hemoglobin measu rement (mass/volume)Ordered By: RL MARTINES on 07-22-2025 Hemoglobin (Bld) [Mass/Vol] 11.0 g/dL Low 12.4-17.3 [facility] Comment on above: Performed By: #### C BCS #### [place] [id number] [place] [id number] Whole blood potassium measur ement (moles/volume)Ordered By: RL MARTINES on 07-22-2025 Potassium [Moles/Vol] 4.1 mmol/L Normal 3.3-5.[address] [facility] Comment on above: Performed By: #### C MP #### [address] [place] [address] CBC w/Auto Differentialon Basophils Abs. # 0.03 K/uL Normal 0.00-0.10 [facility] Comment on above: Performed By: #### B MP #### [facility] [address] [place] [address] Basophils/100 WBC (Bld) 0.7 % Normal 0.2-1.0 [facility] Comment on above: Performed By: #### B MP #### [address] [place] [address] Eosinophils (Bld) [#/Vol] 0.20 10*3/uL Normal 0.00-0.20 [facility] Comment on above: Performed By: #### B MP #### [address] [place] [address] Eosinophils/100 WBC (Bld) 4.0 % High 0.9-2.9 [facility] Comment on above: Performed By: #### B MP #### [address] [place] [address] Erythrocyte distribution width (RBC) [Ratio] 14.4 % Normal 11.5-14.5 [facility] Comment on above: Performed By: #### B MP #### [address] [address] Hematocrit (Bld) [Volume fraction] 33.7 % Low 36.7-50.6 [facility] Comment on above: Performed By: #### B MP #### [address] [address] Hemoglobin (Bld) [Mass/Vol] 11.2 g/dL Low 12.4-17.3 [facility] Comment on above: Performed By: #### B MP #### [place] [address] Imm Grans % 0.20 % Normal 0.00-1.00 [facility] Comment on above: Performed By: #### B MP #### [address] [address] Imm Grans Absolute # 0.01 K/uL Normal 0.00-0.10 [facility] Comment on above: Performed By: #### B MP #### [place] [id number] Lymphocytes (Bld) [#/Vol] 0.90 10*3/uL Low 1.30-2.90 [facility] Comment on above: Performed By: #### B MP #### [address] [place] [id number] Lymphocytes/100 WBC (Bld) 20.5 % Normal 17.0-45.5 [facility] Comment on above: Performed By: #### B MP #### [address] [place] [address] MCH (RBC) [Entitic mass] 32.4 pg High 27.0-31.0 [facility] Comment on above: Performed By: #### B MP #### [address] [place] [address] MCHC (RBC) [Mass/Vol] 33.2 g/dL Normal 33.0-37.[address] [facility] Comment on above: Performed By: #### B MP #### [address] [place] [address] MCV (RBC) [Entitic vol] 97.4 fL High 80.0-94.0 [facility] Comment on above: Performed By: #### B MP #### [address] [address] Monocytes (Bld) [#/Vol] 0.60 10*3/uL Normal 0.30-0.80 [facility] Comment on above: Performed By: #### B MP #### [address] [place] [address] Monocytes/100 WBC (Bld) 12.6 % High 5.5-11.7 [facility] Comment on above: Performed By: #### B MP #### [address] [place] [address] Neutrophils Abs. # 2.81 K/uL Normal 2.20-4.80 [facility] Comment on above: Performed By: #### B MP #### [address] [place] [address] Neutrophils/100 WBC (Bld) 62.0 % Normal 43.0-65.0 [facility] Comment on above: Performed By: #### B MP #### [facility] [address] [place] [address] Platelet mean volume (Bld) [Entitic vol] 8.9 fL Normal 7.4-10.4 [facility] Comment on above: Performed By: #### B MP #### [address] [place] [address] Platelets (Bld) [#/Vol] 231 10*3/uL Normal 148-402 [facility] Comment on above: Performed By: #### B MP #### [address] [place] [address] RBC (Bld) [#/Vol] 3.46 10*6/uL Low 4.13-5.69 [facility] Comment on above: Performed By: #### B MP #### [address] [place] [address] WBC (Bld) [#/Vol] 4.5 10*3/uL Normal 3.6-10.8 [facility] Comment on above: Performed By: #### B MP #### [address] [place] [address] CHEST APon 07-21-2025 CHEST AP EXAMINATION: ONE XRAY VIEW OF THE CHEST 07/21/2025 5:28 am COMPARISON: 07/19/2025 HISTORY: ORDERING SYSTEM PROVIDED HISTORY: left lower lobe COVID-19 pneumonia-trend FINDINGS: Portable chest reveals heart to be borderline enlarged. Ill-defined opacification seen with left lung base with small left pleural effusion. Degenerative changes seen within the spine. The upper lung richardson are clear. The right lung is clear. IMPRESSION: Unchanged ill-defined opacification seen with left lung base with small left pleural effusion. Normal [facility] Comprehensive Metabolic Pane sánchez 07-21-2025 Albumin [Mass/Vol] 2.5 g/dL Low 3.4-5.0 [facility] Comment on above: Performed By: #### C MP #### [facility] [address] [place] [address] Albumin/Globulin [Mass ratio] 0.7 {ratio} Low 1.1-2.5 [facility] Comment on above: Performed By: #### C MP #### [address] [place] [address] ALP [Catalytic activity/Vol] 40 U/L Low 54-112 [facility] Comment on above: Performed By: #### C MP #### [address] [place] [address] ALT [Catalytic activity/Vol] 31 U/L Normal 13-66 [facility] Comment on above: Performed By: #### C MP #### [address] [place] [address] Anion gap [Moles/Vol] 12.3 mmol/L Normal 8.0-16.0 [facility] Comment on above: Performed By: #### C MP #### [address] [place] [address] AST [Catalytic activity/Vol] 42 U/L High 3-39 [facility] Comment on above: Performed By: #### C MP #### [address] [place] [address] Bilirubin [Mass/Vol] 0.26 mg/dL Normal 0.00-0.99 [facility] Comment on above: Performed By: #### C MP #### [facility] [address] [place] [address] Calcium [Mass/Vol] 8.7 mg/dL Normal 8.2-10.0 [facility] Comment on above: Performed By: #### C MP #### [facility] [address] [place] [address] Chloride [Moles/Vol] 107 mmol/L Normal 94-110 [facility] Comment on above: Performed By: #### C MP #### [facility] [address] [place] [address] CO2 [Moles/Vol] 27 mmol/L Normal 21-34 [facility] Comment on above: Performed By: #### C MP #### [address] [place] [address] Creatinine [Mass/Vol] 1.50 mg/dL High 0.50-1.[address] [facility] Comment on above: Performed By: #### C MP #### [address] [place] [address] EGFR Other Races 45 Abnormal >60 [facility] Comment on above: Performed By: #### C MP #### [address] [place] [address] GFR/1.73 sq M.predicted among blacks MDRD (S/P/Bld) [Vol rate/Area] 54 mL/min/{1.73_m2} Abnormal >60 [facility] Comment on above: Result Comment: [employer] Agent andree Kidney Disease less than 60 mL/min/1.73 m2 Kidney Failure less than 15 mL/min/1.73 m2 Average estimated GFR by age: 70+ years 75 mL/min/1.73 m2 Performed By: #### C MP #### [facility] [address] [place] [address] Globulin (S) [Mass/Vol] 3.4 g/dL Normal 1.5-4.5 [facility] Comment on above: Performed By: #### C MP #### [facility] [address] [place] [address] Glucose [Mass/Vol] 145 mg/dL High 65-100 [facility] Comment on above: Performed By: #### C MP #### [facility] [address] [place] [address] Potassium [Moles/Vol] 4.3 mmol/L Normal 3.3-5.[address] [facility] Comment on above: Performed By: #### C MP #### [address] [place] [address] Protein [Mass/Vol] 5.9 g/dL Low 6.1-8.2 [facility] Comment on above: Performed By: #### C MP #### [address] [address] Sodium [Moles/Vol] 142 mmol/L Normal 132-145 [facility] Comment on above: Performed By: #### C MP #### [address] [address] Urea nitrogen [Mass/Vol] 26.0 mg/dL Normal 3.2-26.9 [facility] Comment on above: Performed By: #### C MP #### [address] [place] [address] Urea nitrogen/Creatinine [Mass ratio] 17 mg/mg Normal 6-20 [facility] Comment on above: Performed By: #### C MP #### [address] [place] [address] PROGRESS NOTEon 07-21-2025 [place] [address] HEALTH INFORMATION MANAGEMENT PROGRESS NOTE : [phone] Signed Patient: WILEY MEEK Acct:[id number] MRUN: [id number] : 1940 Sex: M Loc: ICU ADM Date: Room/Bed: 357-A DISC Date: _ Subjective Assessment Date Of Service: 07/21/25 Events Since Admission: WILEY MEEK was admitted to MEDICAL SURGICAL service into room 357 on 07/19/25 at 12:38 for complaints of METABOLIC ENCEPHALOPATHY GENERALIZED WEAKNESS. The patient's laboratory testing and diagnostic testing has been reviewed. Subjective Note: Patient is a 85-year-old gentleman admitted with progressive generalized weakness and fall. Assessment on admission came back consistent with COVID-19 admitted to a monitored bed where patient has since been managed Condition: Fair Objective Findings Vitals and I O: Vital Signs Temperature 97.7 F 07/21/25 08:19 Pulse Rate 81 07/21/25 04:29 Respiratory Rate 19 07/21/25 08:00 Blood Pressure 134/85 07/21/25 08:19 O2 Sat by Pulse Oximetry(%) 96 07/21/25 08:19 FiO2 - Manual Entry Intake Output 07/20/25 07/20/25 07/21/25 11:59 23:59 11:59 Intake Total 530 300 Output Total 250 450 Balance 280 -150 Weight 185 lb 14.4 oz 184 lb 4.8 oz Intake: IV Intake 50 Rocephin 1 Gram Injection 50 1 gm In Sodium Chloride 0.9 % 50 ml 50 ml @ 100 mls/hr IVPB Q24H [facility] Rx#: [id number] Intake ml 480 300 Output: Output ml 250 450 Urine 250 450 Other: Oral Intake Size Oral Small Output Urine Nonnumeric/ Comment Urine lg incont x1, incontinent , sm Output stool Nonnumeric/ Comment Stool Large/hard Other physical findings: PHYSICAL EXAMINATION GENERAL; cooperative HEENT; atraumatic normocephalic EYES; nonicteric, normal conjunctiva NECK; supple, normal thyroid RESPIRATORY; diminished to auscultation CARDIOVASCULAR; regular S1-S2, GASTROINTESTINAL; soft normal active bowel sounds GENITOURINARY; no renal angle tenderness EXTREMITIES; no edema, no clubbing, no cyanosis NEUROLOGY; awake, no lateralizing signs SKIN; no rash PSYCHIATRY; flat affect Laboratory-Last 48 hrs: 07/21/25 05:17 07/21/25 05:17 Laboratory Results-last 24 hrs 07/19/25 10:40: Creatinine 1.50 H, Est GFR (MDRD) Af Amer 54 A, Est GFR (MDRD) Non-Af 45 A, Glucose 121 H, AST 55 H, Alkaline Phosphatase 52 L, Albumin 3.3 L, Albumin/Globulin Ratio 0.9 L 07/19/25 11:15: RBC 3.91 L, MCV 96.7 H, MCH 32.0 H, Neut % (Auto) 88.9 H, Lymph % (Auto) 4.7 L, [place] % (Auto) 5.2 L, Eos % (Auto) 0.8 L, Absolute Neuts (auto) 7.54 H, Absolute Lymphs (auto) 0.40 L 07/19/25 11:21: Urine Protein 15 A, Urine Blood 10 A 07/19/25 12:35: SARS-CoV-2 Ag (Rapid) Positive A 07/19/25 12:50: VBG pH 7.335 L, VBG pO2 55.1 H, VBG HCO3 25.0 H, VBG O2 Saturation 87.7 H, VBG Carboxyhemoglobin 3.2 H 07/20/25 04:30: Creatinine 1.30 H, Est GFR (MDRD) Non-Af 53 A, Glucose 127 H, AST 51 H, Alkaline Phosphatase 44 L, Albumin 2.8 L, Albumin/Globulin Ratio 0.8 L 07/20/25 04:30: RBC 3.63 L, Hgb 11.7 L, Hct 35.2 L, MCV 97.0 H, MCH 32.2 H, Neut % (Auto) 76.8 H, Lymph % (Auto) 12.1 L, Absolute Lymphs (auto) 0.60 L 07/21/25 05:17: Creatinine 1.50 H, Est GFR (MDRD) Af Amer 54 A, Est GFR (MDRD) Non-Af 45 A, Glucose 145 H, AST 42 H, Alkaline Phosphatase 40 L, Total Protein 5.9 L, Albumin 2.5 L, Albumin/Globulin Ratio 0.7 L 07/21/25 05:17: RBC 3.46 L, Hgb 11.2 L, Hct 33.7 L, MCV 97.4 H, MCH 32.4 H, [place] % (Auto) 12.6 H, Eos % (Auto) 4.0 H, Absolute Lymphs (auto) 0.90 L Radiology-Impressions: See radiology reports in electronic medical record. Impressions - Problems (1) Essential hypertension Status: Acute Priority: Medium Current Visit: Yes (2) COVID-19 virus infection Status: Acute Current Visit: No Plan/Treatment Plan: Patient is a 85-year-old gentleman admitted with progressive generalized weakness and fall. Assessment on admission came back consistent with COVID-19 admitted to a monitored bed where patient has since been managed 1. Acute metabolic encephalopathy Secondary to COVID-19 pneumonia patient is level of sensorium improved with treatment 2. COVID-19 pneumonia with suspected superimposed bacterial pneumonia with Gram-positive organisms The patient is managed with ceftriaxone as well as azithromycin 3. 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 Home dose continued 5. Dementia Without behavioral agitation patient is on Aricept did niles (more content not included)... Normal [facility] Procalcitoninon 07-21-2025 Procalcitonin 0.12 ng/mL High 0.00-0.08 [facility] Comment on above: Result Comment: A pr ocalcitonin (PCT) level above 2.0 ng/mL on the first day of ICU admission is associated with a high risk for progression to severe sepsis and/or septic shock. A PCT level below 0.5 ng/mL on the first day of ICU admission is associated with a low risk for progression to severe sepsis and/or septic shock. Note: Concentrations <0.5 ng/mL do not exclude an infection, on account of localized infections (without systemic signs) which can be associated with such low concentrations, or a systemic infection in its initial stages (<6 hours). Furthermore, increased procalcitonin can occur without infection. PCT concentrations between 0.5 and 2.0 ng/mL should be interpreted taking into account the patient's history. It is recommended to retest PCT within 6-24 hours if any concentrations <2 ng/mL are obtained. Performed at: [address] [id number] Field Support Technician: Bobbi Arrieta MD, Phone: [phone] Performed By: #### B MP #### [address] [id number] Serum or plasma magnesium me asurement (mass/volume)Ordered By: RL MARTINES on 07-21-2025 Magnesium [Mass/Vol] 1.9 mg/dL Normal 1.3-2.3 [facility] Comment on above: Performed By: #### 3 TSH #### [address] [address] Serum or plasma natriuretic peptide B measurement (mass/volume)Ordered By: RL MARTINES on 07-21-2025 Natriuretic peptide B (Bld) [Mass/Vol] 261 pg/mL Normal 0-450 [facility] Comment on above: NOTE-Dietary supplem ents containing high biotin levels may cause significantinterference with affected lab tests, including cardiovascular diagnostictests and hormone tests that use biotin technology. Incorrect test resultsmay be generated if there is biotin in the patients specimen. Result Comment: NOTE -Dietary supplements containing high biotin levels may cause significant interference with affected lab tests, including cardiovascular diagnostic tests and hormone tests that use biotin technology. Incorrect test results may be generated if there is biotin in the patients specimen. Performed By: #### C MP #### [address] [address] Serum or plasma phosphate me asurement (mass/volume)Ordered By: RL MARTINES on 07-21-2025 Phosphate [Mass/Vol] 2.8 mg/dL Normal 2.5-4.9 [facility] Comment on above: Performed By: #### C BCS #### [facility] [address] [place] [address] Serum procalcitonin measurem entOrdered By: RL MARTINES on 07-21-2025 Procalcitonin [Mass/Vol] 0.12 ng/mL High 0.00-0.08 [facility] Comment on above: A procalcitonin (PCT ) level above 2.0 ng/mL on the firstday of ICU admission is associated with a high risk forprogression to severe sepsis and/or septic shock.A PCT level below 0.5 ng/mL on the first day of ICUadmission is associated with a low risk for progressionto severe sepsis and/or septic shock.Note: Concentrations <0.5 ng/mL do not exclude aninfection, on account of localized infections (withoutsystemic signs) which can be associated with such lowconcentrations, or a systemic infection in its initialstages (<6 hours).Furthermore, increased procalcitonin can occur withoutinfection. PCT concentrations between 0.5 and 2.0 ng/mLshould be interpreted taking into account the patient'shistory. It is recommended to retest PCT within 6-24 hoursif any concentrations <2 ng/mL are obtained.Performed at: [address] [id number] Director: Bobbi Arrieta MD, Phone: [phone] CBC w/Auto Differentialon Basophils Abs. # 0.02 K/uL Normal 0.00-0.10 [facility] Comment on above: Performed By: #### 3 TSH #### [facility] [address] [place] [address] Basophils/100 WBC (Bld) 0.4 % Normal 0.2-1.0 [facility] Comment on above: Performed By: #### 3 TSH #### [facility] [address] [place] [address] Eosinophils (Bld) [#/Vol] 0.10 10*3/uL Normal 0.00-0.20 [facility] Comment on above: Performed By: #### 3 TSH #### [address] [place] [address] Eosinophils/100 WBC (Bld) 0.9 % Normal 0.9-2.9 [facility] Comment on above: Performed By: #### 3 TSH #### [place] [address] Erythrocyte distribution width (RBC) [Ratio] 14.1 % Normal 11.5-14.5 [facility] Comment on above: Performed By: #### 3 TSH #### [address] [address] Hematocrit (Bld) [Volume fraction] 35.2 % Low 36.7-50.6 [facility] Comment on above: Performed By: #### 3 TSH #### [place] [address] Hemoglobin (Bld) [Mass/Vol] 11.7 g/dL Low 12.4-17.3 [facility] Comment on above: Performed By: #### 3 TSH #### [place] [id number] Imm Grans % 0.20 % Normal 0.00-1.00 [facility] Comment on above: Performed By: #### 3 TSH #### [address] [place] [address] Imm Grans Absolute # 0.01 K/uL Normal 0.00-0.10 [facility] Comment on above: Performed By: #### 3 TSH #### [place] [id number] Lymphocytes (Bld) [#/Vol] 0.60 10*3/uL Low 1.30-2.90 [facility] Comment on above: Performed By: #### 3 TSH #### [address] [place] [address] Lymphocytes/100 WBC (Bld) 12.1 % Low 17.0-45.5 [facility] Comment on above: Performed By: #### 3 TSH #### [address] [place] [address] MCH (RBC) [Entitic mass] 32.2 pg High 27.0-31.0 [facility] Comment on above: Performed By: #### 3 TSH #### [address] [address] MCHC (RBC) [Mass/Vol] 33.2 g/dL Normal 33.0-37.[address] [facility] Comment on above: Performed By: #### 3 TSH #### [address] [place] [address] MCV (RBC) [Entitic vol] 97.0 fL High 80.0-94.0 [facility] Comment on above: Performed By: #### 3 TSH #### [address] [place] [place] [id number] Monocytes (Bld) [#/Vol] 0.50 10*3/uL Normal 0.30-0.80 [facility] Comment on above: Performed By: #### 3 TSH #### [address] [place] [address] Monocytes/100 WBC (Bld) 9.6 % Normal 5.5-11.7 [facility] Comment on above: Performed By: #### 3 TSH #### [address] [place] [address] Neutrophils Abs. # 4.07 K/uL Normal 2.20-4.80 [facility] Comment on above: Performed By: #### 3 TSH #### [address] [place] [address] Neutrophils/100 WBC (Bld) 76.8 % High 43.0-65.0 [facility] Comment on above: Performed By: #### 3 TSH #### [address] [address] Platelet mean volume (Bld) [Entitic vol] 8.7 fL Normal 7.4-10.4 [facility] Comment on above: Performed By: #### 3 TSH #### [address] [address] Platelets (Bld) [#/Vol] 226 10*3/uL Normal 148-402 [facility] Comment on above: Performed By: #### 3 TSH #### [address] [place] [address] RBC (Bld) [#/Vol] 3.63 10*6/uL Low 4.13-5.69 [facility] Comment on above: Performed By: #### 3 TSH #### [address] [place] [address] WBC (Bld) [#/Vol] 5.3 10*3/uL Normal 3.6-10.8 [facility] Comment on above: Performed By: #### 3 TSH #### [address] [place] [address] Comprehensive Metabolic Pane sánchez 07-20-2025 Albumin [Mass/Vol] 2.8 g/dL Low 3.4-5.0 [facility] Comment on above: Performed By: #### C MP #### [facility] [address] [place] [address] Albumin/Globulin [Mass ratio] 0.8 {ratio} Low 1.1-2.5 [facility] Comment on above: Performed By: #### C MP #### [facility] [address] [place] [address] ALP [Catalytic activity/Vol] 44 U/L Low 54-112 [facility] Comment on above: Performed By: #### C MP #### [facility] [address] [place] [address] ALT [Catalytic activity/Vol] 39 U/L Normal 13-66 [facility] Comment on above: Performed By: #### C MP #### [facility] [address] [place] [address] Anion gap [Moles/Vol] 12.0 mmol/L Normal 8.0-16.0 [facility] Comment on above: Performed By: #### C MP #### [facility] [address] [place] [address] AST [Catalytic activity/Vol] 51 U/L High 3-39 [facility] Comment on above: Performed By: #### C MP #### [facility] [address] [place] [address] Bilirubin [Mass/Vol] 0.50 mg/dL Normal 0.00-0.99 [facility] Comment on above: Performed By: #### C MP #### [facility] [address] [place] [address] Calcium [Mass/Vol] 8.6 mg/dL Normal 8.2-10.0 [facility] Comment on above: Performed By: #### C MP #### [facility] [address] [place] [address] Chloride [Moles/Vol] 104 mmol/L Normal 94-110 [facility] Comment on above: Performed By: #### C MP #### [facility] [address] [place] [address] CO2 [Moles/Vol] 28 mmol/L Normal 21-34 [facility] Comment on above: Performed By: #### C MP #### [facility] [address] [place] [address] Creatinine [Mass/Vol] 1.30 mg/dL High 0.50-1.[address] [facility] Comment on above: Performed By: #### C MP #### [address] [place] [address] EGFR Other Races 53 Abnormal >60 [facility] Comment on above: Performed By: #### C MP #### [address] [place] [address] GFR/1.73 sq M.predicted among blacks MDRD (S/P/Bld) [Vol rate/Area] mL/min/{1.73_m2} Normal >60 [facility] Comment on above: Result Comment: Internal Revenue [employer] Agent andree Kidney Disease less than 60 mL/min/1.73 m2 Kidney Failure less than 15 mL/min/1.73 m2 Average estimated GFR by age: 70+ years 75 mL/min/1.73 m2 Performed By: #### C MP #### [facility] [address] [place] [address] Globulin (S) [Mass/Vol] 3.5 g/dL Normal 1.5-4.5 [facility] Comment on above: Performed By: #### C MP #### [address] [place] [address] Glucose [Mass/Vol] 127 mg/dL High 65-100 [facility] Comment on above: Performed By: #### C MP #### [facility] [address] [place] [address] Potassium [Moles/Vol] 4.0 mmol/L Normal 3.3-5.[address] [facility] Comment on above: Performed By: #### C MP #### [id number] [place] [address] Protein [Mass/Vol] 6.3 g/dL Normal 6.1-8.2 [facility] Comment on above: Performed By: #### C MP #### [address] [place] [address] Sodium [Moles/Vol] 140 mmol/L Normal 132-145 [facility] Comment on above: Performed By: #### C MP #### [address] [place] [address] Urea nitrogen [Mass/Vol] 18.5 mg/dL Normal 3.2-26.9 [facility] Comment on above: Performed By: #### C MP #### [address] [address] Urea nitrogen/Creatinine [Mass ratio] 14 mg/mg Normal 6-20 [facility] Comment on above: Performed By: #### C MP #### [address] [place] [address] EMERGENCY DEPARTMENTon 07-20 EMERGENCY DEPARTMENT [place] [id number] HEALTH INFORMATION MANAGEMENT EMERGENCY DEPARTMENT : [id number] Signed Patient: STOECKWILEY SPARKS PAPO Acct:[id number] MRUN: [id number] : 1940 Sex: M Loc: ICU ADM Date: Room/Bed: 357-A DISC Date: _ History of Present Illness - General Chief Complaint: Altered Mental Status Symptom onset: TODAY HPI: TO ED [facility]IA [facility] FROM [facility]. PT WAS A OX4 LAST NIGHT. WOKE UP CONFUSED, A OX2. FELL THIS MORNING, NO BLOOD THINNERS, DENIES HITTING HEAD. EMS STATES STRONG FOUL SMELLING URINE. Time Seen by Provider: 07/19/25 10:34 Source: Patient, RN/MD Mode of Transport: [facility] - History of Present Illness Initial Comments: patient is an 85-year-old male history of dementia, diabetes, metabolic encephalopathy, jail resident brought into emergency department for evaluation of worsening confusion over his baseline dementia and ground level fall earlier this morning. Patient was apparently found in his bathroom this morning and seemed to be confused . He was subsequently brought into emergency department for evaluation. Last known well was last night. Patient apparently has had similar episodes in the past. Reportedly not on any blood thinners. Patient is a poor historian. Most of the history was obtained from nursing staff. MD Complaint: Complains of: altered mental status - Related Data Home Medications Medication Instructions Recorded Confirmed Fenofibrate Nanocrystallized 145 mg PO DAILY 12/08/17 07/19/25 [Fenofibrate] Finasteride 5 mg PO DAILY 12/08/17 07/19/25 Aspirin [Aspirin 81 mg Chew Tablet] 81 mg PO DAILY 10/13/20 07/19/25 Donepezil HCl [Aricept 5 mg Tablet] 5 mg PO QPM 10/13/20 07/19/25 Tamsulosin HCl [Flomax 0.4 mg 0.4 mg PO QPM 10/13/20 07/19/25 Capsule] Divalproex Sodium [Depakote] 125 mg PO BID 08/11/21 07/19/25 Acetaminophen [Acetaminophen Extra 500 mg PO BID 06/01/23 07/19/25 Strength] Cimetidine 400 mg PO BID 06/01/23 07/19/25 Dexlansoprazole [Dexilant] 60 mg PO DAILY 06/01/23 07/19/25 Cholecalciferol (Vitamin D3) 2,000 unit PO DAILY 10/22/24 07/19/25 [Vitamin D3 1000 Unit Tablet] Cyanocobalamin (Vitamin B-12) 500 mcg PO DAILY 10/22/24 07/19/25 [Vitamin B-12 500 Mcg Tablet] Lactobacillus Acidophilus 100 mg PO DAILY 10/22/24 07/19/25 [Acidophilus] Pravastatin Sodium 80 mg PO QHS 10/23/24 07/19/25 Cholecalciferol (Vitamin D3) 2,000 unit PO DAILY 07/19/25 07/19/25 [Vitamin D3 1000 Unit Tablet] Cyanocobalamin (Vitamin B-12) 5,000 mcg PO DAILY 07/19/25 07/19/25 [Vitamin B12] Hydralazine HCl 12.5 mg PO TID 07/19/25 07/19/25 Allergies Allergy/AdvReac Type Severity Reaction Status Date / Time morphine Allergy Verified 10/22/24 18:11 Sulfa (Sulfonamide Allergy Verified 10/22/24 18:11 Antibiotics) Review of System - Constitutional Constitutional: Present: Well developed, Well nourished, Non-toxic - Respiratory Respiratory: Present: no symptoms reported - CV Cardiology: Present: no symptoms reported - GI Gastrointestinal/Abdomina l: Present: no symptoms reported - All Others/Exceptions Unable To Obtain Complete ROS: Dementia ED PMH/Social HX/Family HX - Respiratory Hx Respiratory Disorders: Yes (reviewed ) PMH--Respiratory: Asthma, Bronchitis - Cardiovascular Hx Cardiac Disorders: Yes PMH--Cardiovascular: HTN, Hypercholesterolemia - Neurological Hx Neurological Disorder: Yes PMH--Neurological: Dementia, Memory Loss - Endocrine Hx Endocrine Disorders: Yes PMH--Endocrine History: Diabetes Type 2 - Gastrointestinal Hx Gastrointestinal Disorders: Yes PMH--Gastrointestinal: GERD, Hernia Other GI PMH: heart burn Past Surgical Hx--GI: Appendectomy - Genitourinary Hx Genitourinary Disorders: Yes PMH--Genitourinary: UTI - Musculoskeletal Hx Musculoskeletal Disorders: No PMH--Musculoskeletal: Arthritis - Reproductive Hx Reproductive Disorders: No - Psychological Hx Psychosocial Problems: Yes PMH--Psychological Treatments: Depression - HEENT Hx Ear, Nose Throat Disorders: Yes PMH--Ears Nose and Throat: Cataracts, Farsighted Past Surgical Hx-ENT: Cataract Removal-Right, Cataract Removal-Left - Cancer Hx Cancer: No - Other Other PMH: Chicken Pox, Measles, Mumps - Social History Highest Educational Level: High School Able to Read: Yes Able to Write: Yes Smoking Status: Never Smoked Hx Chewing Tobacco Use: No Alcohol Use: Never Any recreational drug use reported?: No Hx Substance Use Treatment: No Feels Threatened In Home Environment: No Feels Threatened In a Relationship: No - Family PMH Father Living Status: Cardiac: Cardiac Disorder(s), Myocardia (more content not included)... Normal [facility] Magnesiumon 07-20-2025 Magnesium [Mass/Vol] 1.9 mg/dL Normal 1.3-2.3 [facility] Comment on above: Performed By: #### P T #### [address] [address] PROGRESS NOTEon 07-20-2025 [place] [address] HEALTH INFORMATION MANAGEMENT PROGRESS NOTE : [phone] Signed Patient: WILEY MEEK Acct:[id number] MRUN: [id number] : 1940 Sex: M Loc: ICU ADM Date: Room/Bed: 357-A DISC Date: _ Subjective Assessment Date Of Service: 07/20/25 Events Since Admission: WILEY MEEK was admitted to MEDICAL SURGICAL service into room 357 on 07/19/25 at 12:38 for complaints of METABOLIC ENCEPHALOPATHY GENERALIZED WEAKNESS. The patient's laboratory testing and diagnostic testing has been reviewed. Status: Pt Condition Improving, Continue Current Course of Treatment Subjective Note: I was updated by nursing that the patient was found down at the facility and does have a bruise to his left hip. He is seen sitting up eating lunch. He is aware he is in case shocked and however has moments where he thinks he is at [facility]. He was able to tell me that his daughter recently had foot surgery therefore I would be able to update her easily as she is not moving around. He denies any cough or shortness of breath. He did report constipation to the nurse. updated patient's daughter about improvement in symptoms and that he has been up to a chair. Condition: Fair General: Denies: Fever, Chills, Sweats, Weakness, Fatigue, Weight Gain, Weight Loss, Other ENT: Denies: Earache, Ear Discharge, Decreased Hearing, Tinnitus, Nose Congestion, Nose Drainage, Nasal Ulcers, Epitaxis, Sore Throat, Throat Swelling, Hoarseness, Loss Of Voice, Tongue Pain, Tongue Swelling, Lip Swelling, Dental Pain, Cervical, Other Respiratory: Denies: Cough, Shortness of Breath, Wheezing, Sputum Production, Hemoptysis, Dyspnea on Exertion, Pleuritic Pain, Other Cardiovascular: Denies: Chest Pain-Sharp, Chest Pain-Heavy, Orthopnea, Short of Breath, Dyspnea on Exertion, Paroxysmal Noc. Dyspnea, Edema, Palpitations, Light Headedness, Syncope, Diaphoresis, Claudication, Edema, Other Gastrointestinal: Confirms: Constipation Genitourinary: Denies: Dysuria, Frequency, Incontinence, Hematuria, Retention, Other Musculoskeletal: Denies: Neck Pain, Shoulder Pain, Arm Pain, Back Pain, Hand Pain, Leg Pain, Foot Pain, Other Neurological: Denies: Weakness, Numbness, Incoordination, Change in Speech, Confusion, Seizures, Other Objective Findings Sepsis focused exam performed?: No Review of Systems Completed?: Yes General: Yes: Alert, Cooperative/Pleasant, No acute distress. No: Oriented (X3) HEENT: Yes: Atraumatic, PERRLA, EOMI, PERRL, Mucous membr. moist/pink Neck: Yes: Supple, +2 carotid pulse wo bruit. No: JVD, Thyromegaly Lungs: Yes: Unlabored ( on room air), Diminished ( Diminished at bases). No: Exibits Shortness of Marisa, Pursed Lip Breathing, Use of Accessory Muscles, Retracting Cardiovascular: Yes: Regular rate, Normal S2, Normal S1, No murmurs, Rubber Curer Rhythm (Sinus Rhythm). No: Gallops, Rubs, Ectopy Abdomen: Yes: Bowel Sounds X4, Soft, No Tenderness, Flatus. No: Hepatospenomegaly, Masses, Nausea/Vomiting, Emesis Present, Constipation, Diarrhea Genitourinary/Rectal: Yes: Voiding (Sufficiently). No: Genital Discharge, Bladder Distention, Joe Catheter Extremities: Yes: Normal pulses. No: Clubbing, Cyanosis, Edema, No tenderness/swelling, Bilateral Leg Edema, Mottling noted Skin: No: Rashes, Skin Breakdown, Significant lesions, Open Wound Present Neurological: Yes: Speech Clear, Normal tone, Sensation intact, Cranial nerves 3-12 NL, Reflexes 2+, Cognitive Ability Impaire Psych/Mental Status: Yes: Mental status NL, Mood Appropriate. No: Hallucinations Vitals and I O: Vital Signs Temperature 97.2 F L 07/20/25 08:00 Pulse Rate 89 07/20/25 10:43 Respiratory Rate 16 07/20/25 10:43 Blood Pressure 131/86 07/20/25 08:00 O2 Sat by Pulse Oximetry(%) 96 07/20/25 10:43 FiO2 - Manual Entry Intake Output 07/19/25 07/20/25 07/20/25 23:59 11:59 23:59 Intake Total 1300 Balance 1300 Weight 191 lb 185 lb 14.4 oz Intake: IV Intake 1300 Rocephin 1 Gram Injection 50 1 gm In Sodium Chloride 0.9 % 50 ml 50 ml @ 100 mls/hr IVPB STAT STA Rx#: [id number] Sodium Chloride 0.9 % 1000 1000 ml 1,000 ml @ 999 mls/hr IV .Q1H1M STA Rx#: [id number] Zithromax 500 mg 250 Injection 500 mg In Sodium Chloride 0.9 % 250 ml 250 ml @ 250 mls/hr IVPB Q24H OSVALDO Rx#: [id number] Other: Output Urine Nonnumeric/ Comment Urine xlg incont lg incont Laboratory-Last 48 hrs: 07/20/25 04:30 07/20/25 04:30 Laboratory Results-last 24 hrs 07/19/25 10:40: Creatinine 1.50 H, Est GFR (MDRD) Af Amer 54 A, Est GFR (MDRD) Non-Af 45 A, Glucose 121 H, AST 55 H, Alkaline Phosphatase 52 L, Albumin 3.3 L, Albumin/Globulin Ratio 0.9 (more content not included)... Normal [facility] Phosphoruson 07-20-2025 Phosphate [Mass/Vol] 3.4 mg/dL Normal 2.5-4.9 [facility] Comment on above: Performed By: #### 3 TSH #### [address] [address] TSH DL <= 0.005 mIU/L QnOrde red By: RL AMRTINES on 07-20-2025 TSH Qn 1.608 uIU/L 0.358-3.740 [facility] Comment on above: NOTE-Dietary supplem ents containing high biotin levels may cause significantinterference with affected lab tests, including cardiovascular diagnostictests and hormone tests that use biotin technology. Incorrect test resultsmay be generated if there is biotin in the patients specimen. TSHLon 07-20-2025 TSHL 1.608 uIU/L Normal 0.358-3.740 [facility] Comment on above: Result Comment: NOTE -Dietary supplements containing high biotin levels may cause significant interference with affected lab tests, including cardiovascular diagnostic tests and hormone tests that use biotin technology. Incorrect test results may be generated if there is biotin in the patients specimen. Performed By: #### 3 TSH #### [address] [place] [address] CBC w/Auto Differentialon Basophils Abs. # 0.02 K/uL Normal 0.00-0.10 [facility] Comment on above: Performed By: #### M G #### [address] [place] [address] Basophils/100 WBC (Bld) 0.2 % Normal 0.2-1.0 [facility] Comment on above: Performed By: #### M G #### [address] [place] [address] Eosinophils (Bld) [#/Vol] 0.10 10*3/uL Normal 0.00-0.20 [facility] Comment on above: Performed By: #### M G #### [address] [place] [address] Eosinophils/100 WBC (Bld) 0.8 % Low 0.9-2.9 [facility] Comment on above: Performed By: #### M G #### [place] [address] Erythrocyte distribution width (RBC) [Ratio] 13.8 % Normal 11.5-14.5 [facility] Comment on above: Performed By: #### M G #### [place] [address] Hematocrit (Bld) [Volume fraction] 37.8 % Normal 36.7-50.6 [facility] Comment on above: Performed By: #### M G #### [address] [address] Hemoglobin (Bld) [Mass/Vol] 12.5 g/dL Normal 12.4-17.3 [facility] Comment on above: Performed By: #### M G #### [address] [place] [address] Imm Grans % 0.20 % Normal 0.00-1.00 [facility] Comment on above: Performed By: #### M G #### [address] [address] Imm Grans Absolute # 0.02 K/uL Normal 0.00-0.10 [facility] Comment on above: Performed By: #### M G #### [address] [place] [address] Lymphocytes (Bld) [#/Vol] 0.40 10*3/uL Low 1.30-2.90 [facility] Comment on above: Performed By: #### M G #### [place] [address] Lymphocytes/100 WBC (Bld) 4.7 % Low 17.0-45.5 [facility] Comment on above: Performed By: #### M G #### [address] [address] MCH (RBC) [Entitic mass] 32.0 pg High 27.0-31.0 [facility] Comment on above: Performed By: #### M G #### [address] [place] [address] MCHC (RBC) [Mass/Vol] 33.1 g/dL Normal 33.0-37.[address] [facility] Comment on above: Performed By: #### M G #### [address] [place] [address] MCV (RBC) [Entitic vol] 96.7 fL High 80.0-94.0 [facility] Comment on above: Performed By: #### M G #### [place] [id number] Monocytes (Bld) [#/Vol] 0.40 10*3/uL Normal 0.30-0.80 [facility] Comment on above: Performed By: #### M G #### [address] [address] Monocytes/100 WBC (Bld) 5.2 % Low 5.5-11.7 [facility] Comment on above: Performed By: #### M G #### [facility] [address] [place] [address] Neutrophils Abs. # 7.54 K/uL High 2.20-4.80 [facility] Comment on above: Performed By: #### M G #### [facility] [address] [place] [address] Neutrophils/100 WBC (Bld) 88.9 % High 43.0-65.0 [facility] Comment on above: Performed By: #### M G #### [address] [place] [address] Platelet mean volume (Bld) [Entitic vol] 9.3 fL Normal 7.4-10.4 [facility] Comment on above: Performed By: #### M G #### [facility] [address] [place] [address] Platelets (Bld) [#/Vol] 267 10*3/uL Normal 148-402 [facility] Comment on above: Performed By: #### M G #### [address] [place] [address] RBC (Bld) [#/Vol] 3.91 10*6/uL Low 4.13-5.69 [facility] Comment on above: Performed By: #### M G #### [address] [place] [address] WBC (Bld) [#/Vol] 8.5 10*3/uL Normal 3.6-10.8 [facility] Comment on above: Performed By: #### M G #### [place] [id number] CBLDon 07-19-2025 CBLD Patient: Zeina MEEK [id number] Location: [facility] INT Aount: [id number] : 1940 Age: 85 Sex M Lab NumbEr [id number] Requested by: BRYANNA GAFFNEY Admitdate: 07/19/25 Source: BLOOD Collected: 07/19/25 12:30 Site: MEMO Received : 07/19/25 12:39 OE C O M M E N T S LAB.PORT; Does the Patient have a central line to draw blood from?; N; [email or web address]; Ruben Site; blood Culture, Blood FINAL 07/25/25 06:45 07/21/25 No growth after 48 hours incubation in aerobic and anaerobic bottle. 07/21/2025 06:13 07/25/25 No growth after 5 days incubation in aerobic and anaerobic bottle. 07/25/2025 06:45 Normal [facility] Comment on above: Performed By: #### B MP #### [place] [id number] CBLD Patient: Zeina MEEK [id number] Location: [facility] INT Aount: [id number] : 1940 Age: 85 Sex M Lab NumbEr [id number] Requested by: BRYANNA GAFFNEY Admitdate: 07/19/25 Source: BLOOD Collected: 07/19/25 12:20 Site: MEMO Received : 07/19/25 12:39 OE C O M M E N T S LAB.PORT; Does the Patient have a central line to draw blood from?; N; [email or web address]; Ruben Site; blood Culture, Blood FINAL 07/25/25 06:45 07/21/25 No growth after 48 hours incubation in aerobic and anaerobic bottle. 07/21/2025 06:13 07/25/25 No growth after 5 days incubation in aerobic and anaerobic bottle. 07/25/2025 06:45 Normal [facility] Comment on above: Performed By: #### B #### [facility] [address] [place] [address] CHEST APon 07-19-2025 CHEST AP EXAMINATION: ONE XRAY VIEW OF THE CHEST 07/19/2025 11:49 am COMPARISON: None. HISTORY: ORDERING SYSTEM PROVIDED HISTORY: cough FINDINGS: The cardiac silhouette is within normals. There is no mediastinal widening The right lung is clear There is left lung base airspace disease. The left upper lobe is clear. IMPRESSION: 1. Left lung base airspace disease 2. The right lung is clear. Normal [facility] CT BRAIN WOon 07-19-2025 CT BRAIN WO EXAM: CT Head Without Intravenous Contrast EXAM DATE/TIME: 07/19/2025 11:49 am CLINICAL HISTORY: ORDERING SYSTEM PROVIDED HISTORY: Fall TECHNIQUE: Axial computed tomography images of the head/brain without intravenous contrast. This CT exam was performed using one or more of the following dose reduction techniques: automated exposure control, adjustment of the mA and/or kV according to patient size, and/or use of iterative reconstruction technique. COMPARISON: 10/22/2024 FINDINGS: Brain: No evidence of acute intracranial process. No acute ischemia. No mass or mass effect. No acute intracranial hemorrhage. 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 Prominence of the sulci and/or CSF spaces suggests a degree of cerebral atrophy. Ventricles: No acute findings. No ventriculomegaly. Bones/joints: No acute findings. No acute fracture. Soft tissues: No acute findings. Sinuses: Mild right ethmoid chronic sinusitis. Mastoid air cells: Unremarkable as visualized. No mastoid effusion. IMPRESSION: 1. No evidence of acute intracranial process. 2. Prominence of the sulci and/or CSF spaces suggests a degree of cerebral atrophy. 3. 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 Normal [facility] CT CERVICAL WOon 07-19-2025 CT CERVICAL WO EXAM: CT Cervical Spine Without Intravenous Contrast EXAM DATE/TIME: 07/19/2025 11:49 am CLINICAL HISTORY: ORDERING SYSTEM PROVIDED HISTORY: pain, injury TECHNIQUE: Axial computed tomography images of the cervical spine without intravenous contrast. This CT exam was performed using one or more of the following dose reduction techniques: automated exposure control, adjustment of the mA and/or kV according to patient size, and/or use of iterative reconstruction technique. COMPARISON: No relevant prior studies available. FINDINGS: Vertebrae: Mild multilevel degenerative joint disease within the facets. Mild degenerative anterolisthesis C3 on C4. Discs/spinal canal/neural foramina: Prominent posterior central disc protrusion C6-C7 resulting in central canal and mild lateral recess narrowing C4-C6 degenerative disc disease. Bony foraminal narrowing C4-C6. Soft tissues: No acute findings. IMPRESSION: 1. Prominent posterior central disc protrusion C6-C7 resulting in central canal and mild lateral recess narrowing If the patient has any related symptoms, an MRI examination of the cervical spine could be obtained. 2. No evidence of acute fracture with degenerative and/or chronic changes as described. Normal [facility] Capillary whole blood glucos e measurement by glucometer (mass/volume)Ordered By: BRYANNA GAFFNEY on 07-19-2025 Glucose [Mass/Vol] 124 mg/dL High 65-110 [facility] Comment on above: Performed By: #### C BCS #### [address] [address] Comprehensive Metabolic Pane sánchez 07-19-2025 Albumin [Mass/Vol] 3.3 g/dL Low 3.4-5.0 [facility] Comment on above: Performed By: #### 3 TSH #### [facility] [address] [place] [address] Albumin/Globulin [Mass ratio] 0.9 {ratio} Low 1.1-2.5 [facility] Comment on above: Performed By: #### 3 TSH #### [address] [place] [address] ALP [Catalytic activity/Vol] 52 U/L Low 54-112 [facility] Comment on above: Performed By: #### 3 TSH #### [facility] [address] [place] [address] ALT [Catalytic activity/Vol] 39 U/L Normal 13-66 [facility] Comment on above: Performed By: #### 3 TSH #### [facility] [address] [place] [address] Anion gap [Moles/Vol] 12.5 mmol/L Normal 8.0-16.0 [facility] Comment on above: Performed By: #### 3 TSH #### [facility] [address] [place] [address] AST [Catalytic activity/Vol] 55 U/L High 3-39 [facility] Comment on above: Performed By: #### 3 TSH #### [facility] [address] [place] [address] Bilirubin [Mass/Vol] 0.68 mg/dL Normal 0.00-0.99 [facility] Comment on above: Performed By: #### 3 TSH #### [facility] [address] [place] [address] Calcium [Mass/Vol] 8.8 mg/dL Normal 8.2-10.0 [facility] Comment on above: Performed By: #### 3 TSH #### [facility] [address] [place] [address] Chloride [Moles/Vol] 105 mmol/L Normal 94-110 [facility] Comment on above: Performed By: #### 3 TSH #### [facility] [address] [place] [address] CO2 [Moles/Vol] 27 mmol/L Normal 21-34 [facility] Comment on above: Performed By: #### 3 TSH #### [facility] [address] [place] [address] Creatinine [Mass/Vol] 1.50 mg/dL High 0.50-1.[address] [facility] Comment on above: Performed By: #### 3 TSH #### [facility] [address] [place] [address] EGFR Other Races 45 Abnormal >60 [facility] Comment on above: Performed By: #### 3 TSH #### [facility] [address] [place] [address] GFR/1.73 sq M.predicted among blacks MDRD (S/P/Bld) [Vol rate/Area] 54 mL/min/{1.73_m2} Abnormal >60 [facility] Comment on above: Result Comment: [employer] Agent andree Kidney Disease less than 60 mL/min/1.73 m2 Kidney Failure less than 15 mL/min/1.73 m2 Average estimated GFR by age: 70+ years 75 mL/min/1.73 m2 Performed By: #### 3 TSH #### [facility] [address] [place] [address] Globulin (S) [Mass/Vol] 3.7 g/dL Normal 1.5-4.5 [facility] Comment on above: Performed By: #### 3 TSH #### [facility] [address] [place] [address] Glucose [Mass/Vol] 121 mg/dL High 65-100 [facility] Comment on above: Performed By: #### 3 TSH #### [facility] [address] [place] [address] Potassium [Moles/Vol] 4.5 mmol/L Normal 3.3-5.[address] [facility] Comment on above: Performed By: #### 3 TSH #### [facility] [address] [place] [address] Protein [Mass/Vol] 7.0 g/dL Normal 6.1-8.2 [facility] Comment on above: Performed By: #### 3 TSH #### [facility] [address] [place] [address] Sodium [Moles/Vol] 140 mmol/L Normal 132-145 [facility] Comment on above: Performed By: #### 3 TSH #### [facility] [address] [place] [address] Urea nitrogen [Mass/Vol] 26.4 mg/dL Normal 3.2-26.9 [facility] Comment on above: Performed By: #### 3 TSH #### [facility] [address] [place] [address] Urea nitrogen/Creatinine [Mass ratio] 18 mg/mg Normal 6-20 [facility] Comment on above: Performed By: #### 3 TSH #### [facility] [address] [place] [address] Detection in respiratory spe cimen of antigen of either or both severe acute respiratoOrdered By: BRYANNA GAFFNEY on 07-19-2025 SARS-CoV+SARS-CoV-2 (COVID-19) Ag IA.rapid Ql (Resp) Positive Abnormal Negative [facility] Comment on above: [facility] [place] 2 SARS Ant igen ONESIMO is a lateral flow immunofluorescent sandwichassay that is used with the Chio 2 instrument intended for the qualitativedetection of the nucleocapsid protein antigen from SARS-CoV-2 innasopharyngeal (LIMEHOUSE WORKER) and nasal (NS) swab specimens directly or after theswabs have been added to viral transport media from individuals who aresuspected of COVID-19 by their healthcare provider. Testing is limited tolaboratories certified under the Clinical Laboratory Improvement Amendmentsof 1988 (CLIA), 42 U.S.C. 263a, that meet the requirements to performmoderate, high or waived complexity tests. This test is authorized for useat the Point of Care (POC), i.e., in patient care settings operating under aCLIA Certificate of Waiver, Certificate of Compliance, or Certificate ofAccreditation.The SARS Antigen ONESIMO does not differentiate between SARS-CoV and SARS-CoV-2.Results are for the identification of SARS-CoV-2 nucleocapsid proteinantigen. Antigen is generally detectable in upper respiratory specimensduring the acute phase of infection.Positive results indicate the presence of viral antigens, but clinicalcorrelation with patient history and other diagnostic information isnecessary to determine infection status. Positive results do not rule outbacterial infection or co-infection with other viruses. The agent detectedmay not be the definite cause of disease.Negative results should be treated as presumptive and confirmed with amolecular assay, if necessary for patient management. Negative results donot rule out COVID-19 and should not be used as the sole basis for treatmentor patient management decisions, including infection control decisions.Negative results should be considered in the context of a patient s recentexposures, history and the presence of clinical signs and symptomsconsistent with COVID-19. EKG reportOrdered By: ANICETO GAFFNEY on 07-19-2025 EKG study [address] [address] CARDIOLOGY Patient:WILEY MEEK Acct:[id number] Unit:[id number] :1940 Loc:ED Room : Att:BRYANNA GAFFNEY MD Ord#:[id number] Adm:07/19/25 -------- CAR/EKG [facility] ED Test Date: 2025-07-19 Test Time: 10:55:58 Pat Name: WILEY MEEK Department: ED Room: Gender: M Mottler Operator: JOSE : 1940 Requested By: BRYANNA GAFFNEY Order Number: [id number] Reading MD: Bryanna Gaffney Measurements Intervals [place] Rate: 96 P: 17 NC: 192 QRS: 23 QRSD: 131 T: -14 QT: 351 QTc: 444 Interpretive Statements Normal sinus rhythm, heart rate of 96. Normal NC interval. Right bundle branch block. Electronically Signed On 07-19-2025 11:34:18 EDT by Bryanna Gaffney [facility] Work Phone: HCO3 (BldV) [Moles/Vol]Order ed By: BRYANNA GAFFNEY on 07-19-2025 HCO3 (Bld) [Moles/Vol] 25.0 mmol/L High 21.9-24.1 C [facility] Hemoglobin (BldV) [Mass/Vol] Ordered By: BRYANNA GAFFNEY on 07-19-2025 Hemoglobin (Bld) [Mass/Vol] 13.4 g/dL 12.39-17.31 [facility] High Sensitivity TNIon 07-19 Abs Change hsTnI 0 ng/L Normal [facility] Comment on above: Performed By: #### B MP #### [address] [address] [place] % hsTnI 0 % Normal [facility] Comment on above: Performed By: #### B MP #### [address] [address] High Sensitivity TNI 8 ng/L Normal 0-76 [facility] Comment on above: Result Comment: Inte rpretation comment: High-sensitivity troponin I (hsTnI) assay can reliably detect low troponin concentrations relative to conventional troponin assays. It is the preferred marker of myocardial necrosis as recommended by the Fourth [place] Definition of Myocardial Infarction Guidelines. The diagnosis of acute myocardial infarction (AMI) is made based on a rise or fall of troponin with at least one measurement exceeding the laboratory's upper limit of normal (indicating myocardial injury), in the context of reasonable suspicion for coronary ischemia (e.g. typical symptoms, changes on ECG, evidence for loss of myocardial infarction or demonstration of obstructive coronary artery disease). Note: Although abnormal hsTnI values reflect injury to myocardial cells, an elevated hsTnI does not indicate the cause of injury (i.e. ischemia versus non-ischemic disease). In some cases, myocardial injury is chronic and relatively stable such that hsTnI values remain elevated but do not change substantially over hours to days (examples include chronic kidney disease, heart failure or advanced patient age). When determining whether there has been a significant rise or fall of troponin on serial sampling, absolute change in troponin concentration has greater diagnostic accuracy for AMI then relative change criteria. A change of >7 ng/L over a 2-hour interval or a change of >10 ng/L over a 3-hour interval is suggested as a significant change. If the initial hsTnI is below or at the 99th percentile upper reference limit, a 50% change from the baseline is considered significant. If the initial hsTnI is above the 99th percentile upper reference limit, a 20% change from the baseline value is considered significant. Performed By: #### B MP #### [facility] [address] [place] [address] Abs Change hsTnI 1 ng/L Normal [facility] Comment on above: Performed By: #### 3 TSH #### [facility] [address] [place], [place] [id number] [place] % hsTnI 13 % Normal [facility] Comment on above: Performed By: #### 3 TSH #### [facility] [address] [place], [place] [id number] High Sensitivity TNI 8 ng/L Normal 0-76 [facility] Comment on above: Result Comment: Inte rpretation comment: High-sensitivity troponin I (hsTnI) assay can reliably detect low troponin concentrations relative to conventional troponin assays. It is the preferred marker of myocardial necrosis as recommended by the Fourth [place] Definition of Myocardial Infarction Guidelines. The diagnosis of acute myocardial infarction (AMI) is made based on a rise or fall of troponin with at least one measurement exceeding the laboratory's upper limit of normal (indicating myocardial injury), in the context of reasonable suspicion for coronary ischemia (e.g. typical symptoms, changes on ECG, evidence for loss of myocardial infarction or demonstration of obstructive coronary artery disease). Note: Although abnormal hsTnI values reflect injury to myocardial cells, an elevated hsTnI does not indicate the cause of injury (i.e. ischemia versus non-ischemic disease). In some cases, myocardial injury is chronic and relatively stable such that hsTnI values remain elevated but do not change substantially over hours to days (examples include chronic kidney disease, heart failure or advanced patient age). When determining whether there has been a significant rise or fall of troponin on serial sampling, absolute change in troponin concentration has greater diagnostic accuracy for AMI then relative change criteria. A change of >7 ng/L over a 2-hour interval or a change of >10 ng/L over a 3-hour interval is suggested as a significant change. If the initial hsTnI is below or at the 99th percentile upper reference limit, a 50% change from the baseline is considered significant. If the initial hsTnI is above the 99th percentile upper reference limit, a 20% change from the baseline value is considered significant. Performed By: #### 3 TSH #### [address] [address] High Sensitivity TNI 7 ng/L Normal 0-76 [facility] Comment on above: Result Comment: Inte rpretation comment: High-sensitivity troponin I (hsTnI) assay can reliably detect low troponin concentrations relative to conventional troponin assays. It is the preferred marker of myocardial necrosis as recommended by the Fourth [place] Definition of Myocardial Infarction Guidelines. The diagnosis of acute myocardial infarction (AMI) is made based on a rise or fall of troponin with at least one measurement exceeding the laboratory's upper limit of normal (indicating myocardial injury), in the context of reasonable suspicion for coronary ischemia (e.g. typical symptoms, changes on ECG, evidence for loss of myocardial infarction or demonstration of obstructive coronary artery disease). Note: Although abnormal hsTnI values reflect injury to myocardial cells, an elevated hsTnI does not indicate the cause of injury (i.e. ischemia versus non-ischemic disease). In some cases, myocardial injury is chronic and relatively stable such that hsTnI values remain elevated but do not change substantially over hours to days (examples include chronic kidney disease, heart failure or advanced patient age). When determining whether there has been a significant rise or fall of troponin on serial sampling, absolute change in troponin concentration has greater diagnostic accuracy for AMI then relative change criteria. A change of >7 ng/L over a 2-hour interval or a change of >10 ng/L over a 3-hour interval is suggested as a significant change. If the initial hsTnI is below or at the 99th percentile upper reference limit, a 50% change from the baseline is considered significant. If the initial hsTnI is above the 99th percentile upper reference limit, a 20% change from the baseline value is considered significant. Performed By: #### C MP #### [address] [address] INR in Platelet poor plasma by Coagulation assayOrdered By: BYRANNA GAFFNEY on 07-19-2025 INR Coag (PPP) [Relative time] 1.0 {INR} Normal [facility] Comment on above: 2.0 - 3.0 Group A2.5 - 3.5 Group BGroup A indications: Prophylaxis and treatment of venousthrombosis. Treatment of pulmonary embolism. Prevention ofsystemic embolism. Tissue heart valves. Acute myocardialinfarction. Valvular heart disease. Atrial fibrillation.Group B indications: Mechanical prosthetic valves. . Result Comment: 2.0 - 3.0 Group A 2.5 - 3.5 Group B Group A indications: Prophylaxis and treatment of venous thrombosis. Treatment of pulmonary embolism. Prevention of systemic embolism. Tissue heart valves. Acute myocardial infarction. Valvular heart disease. Atrial fibrillation. Group B indications: Mechanical prosthetic valves. . Performed By: #### M G #### [address] [address] Influenza A B (Rapid)on Influenza A antigen Negative Normal (Negative) [facility] Comment on above: Performed By: #### 3 TSH #### [facility] [address] [place] [address] Influenza B antigen Negative Normal (Negative) [facility] Comment on above: Performed By: #### 3 TSH #### [facility] [address] [place] [address] Influenza virus A antigen de tection in nasopharynxOrdered By: BRYANNA GAFFNEY on 07-19-2025 FLUAV Ag Ql (Nph) Negative (Negative) [facility] Influenza virus B antigen de tection in nasopharynxOrdered By: BRYANNA GAFFNEY on 07-19-2025 FLUBV Ag Ql (Nph) Negative (Negative) [facility] Interpretation of serum or p lasma cardiac troponin I measurement by high sensitivityOrdered By: BRYANNA GAFFNEY on 07-19-2025 Troponin I.cardiac High sensitivity method Ql [Interp] 8 ng/L 0-76 [facility] Comment on above: Interpretation comme nt:High-sensitivity troponin I (hsTnI) assay can reliably detect low troponinconcentrations relative to conventional troponin assays. It is thepreferred marker of myocardial necrosis as recommended by the FourthUniversal Definition of Myocardial Infarction Guidelines.The diagnosis of acute myocardial infarction (AMI) is made based on a riseor fall of troponin with at least one measurement exceeding the laboratory'supper limit of normal (indicating myocardial injury), in the context ofreasonable suspicion for coronary ischemia (e.g. typical symptoms, changeson ECG, evidence for loss of myocardial infarction or demonstration ofobstructive coronary artery disease).Note: Although abnormal hsTnI values reflect injury to myocardial cells, anelevated hsTnI does not indicate the cause of injury (i.e. ischemia versusnon-ischemic disease).In some cases, myocardial injury is chronic and relatively stable such thathsTnI values remain elevated but do not change substantially over hours todays (examples include chronic kidney disease, heart failure or advancedpatient age).When determining whether there has been a significant rise or fall oftroponin on serial sampling, absolute change in troponin concentration hasgreater diagnostic accuracy for AMI then relative change criteria. A changeof >7 ng/L over a 2-hour interval or a change of >10 ng/L over a 3-hourinterval is suggested as a significant change. If the initial hsTnI isbelow or at the 99th percentile upper reference limit, a 50% change from thebaseline is considered significant. If the initial hsTnI is above the 99thpercentile upper reference limit, a 20% change from the baseline value isconsidered significant. Lactic Acid (Venous)on 07-19 Lactate [Moles/Vol] 1.4 mmol/L Normal 0.4-2.0 [facility] Comment on above: Result Comment: Plea se note change in normal range Performed By: #### C BCS #### [address] [address] Leukocyte esterase ur dipsti ckOrdered By: BRYANNA GAFFNEY on 07-19-2025 Leukocyte esterase Test strip Ql (U) Negative Negative [facility] Measurement of inhaled gas o xygen (decimal volume fraction)Ordered By: BRYANNA GAFFNEY on 07-19-2025 Inhaled oxygen [Pure volume fraction] Inhaled gas 84.6 % 21-100 [facility] PROTHROMBIN TIMEon PT Coag (PPP) [Time] 10.3 s Normal 8.9-12.2 [place] [facility] Work Phone: Comment on above: New Reference Ranges effective 2018. Result Comment: New Reference Ranges effective 2018. Performed By: #### M G #### [facility] [address] [place] [address] PT Coag (PPP) [Time]on 07-19 INR Coag (PPP) [Relative time] 1 {INR} Invalid Interpretation Code text: ratio [place] - [facility] Work Phone: Comment on above: 2.0 - 3.0 Group A 2. 5 - 3.5 Group B Group A indications: Prophylaxis and treatment of venous thrombosis. Treatment of pulmonary embolism. Prevention of systemic embolism. Tissue heart valves. Acute myocardial infarction. Valvular heart disease. Atrial fibrillation. Group B indications: Mechanical prosthetic valves. . Protein ur QLOrdered By: RICCO GAFFNEY on 07-19-2025 Protein Ql (U) 15 Abnormal Negative [facility] Comment on above: Performed By: #### B MP #### [id number] [place], [place] [id number] Prothrombin time (PT) in laura telet poor plasmaOrdered By: BRYANNA GAFFNEY on 07-19-2025 PT Coag (PPP) [Time] 10.3 '' 8.9-12.2 [facility] Comment on above: New Reference Ranges effective 2018. RBC LM Ql (Urine sed)Ordered By: BRYANNA GAFFNEY on 07-19-2025 RBC Ql (U) 0-2 [HPF] 0 - 2 [facility] RBC Test strip (U) [#/Vol]Or dered By: BRYANNA GAFFNEY on 07-19-2025 RBC (U) [#/Vol] 10 /uL Abnormal Negative [facility] SARS-CoV+SARS-CoV-2 (COVID-1 9) Ag IA.rapid Ql (Resp)on 07-19-2025 Interpretation and review of laboratory results ABNORMAL Invalid Interpretation Code [place] [facility] Work Phone: Specific gravity ur dipstick Ordered By: BRYANNA GAFFNEY on 07-19-2025 Specific gravity (U) [Rel density] 1.015 Normal 1.015-1.025 [facility] Comment on above: Performed By: #### B MP #### [id number] [place] [address] Troponin I measurement by va ghly sensitive enzyme immunoassayOrdered By: BRYANNA GAFFNEY on 07-19-2025 Troponin I.cardiac High sensitivity method [Mass/Vol] 0 ng/L [facility] Troponin I.cardiac High sensitivity method [Mass/Vol] 0 % [facility] Troponin T.cardiac [Mass/Vol ]on 07-19-2025 RL bone fraction 0 NG/L Invalid Interpretation Code [place] [facility] Work Phone: RL intestinal fraction 0 % Invalid Interpretation Code [place] [facility] Work Phone: RL liver fraction 8 NG/L Invalid Interpretation Code low: 0NG/L high: 76NG/L [place] [facility] Work Phone: Comment on above: Interpretation comme nt: High-sensitivity troponin I (hsTnI) assay can reliably detect low troponin concentrations relative to conventional troponin assays. It is the preferred marker of myocardial necrosis as recommended by the Fourth [place] Definition of Myocardial Infarction Guidelines. The diagnosis of acute myocardial infarction (AMI) is made based on a rise or fall of troponin with at least one measurement exceeding the laboratory's upper limit of normal (indicating myocardial injury), in the context of reasonable suspicion for coronary ischemia (e.g. typical symptoms, changes on ECG, evidence for loss of myocardial infarction or demonstration of obstructive coronary artery disease). Note: Although abnormal hsTnI values reflect injury to myocardial cells, an elevated hsTnI does not indicate the cause of injury (i.e. ischemia versus non-ischemic disease). In some cases, myocardial injury is chronic and relatively stable such that hsTnI values remain elevated but do not change substantially over hours to days (examples include chronic kidney disease, heart failure or advanced patient age). When determining whether there has been a significant rise or fall of troponin on serial sampling, absolute change in troponin concentration has greater diagnostic accuracy for AMI then relative change criteria. A change of >7 ng/L over a 2-hour interval or a change of >10 ng/L over a 3-hour interval is suggested as a significant change. If the initial hsTnI is below or at the 99th percentile upper reference limit, a 50% change from the baseline is considered significant. If the initial hsTnI is above the 99th percentile upper reference limit, a 20% change from the baseline value is considered significant. UA w/Micrscopic-reflex cultu reon 07-19-2025 Bacteria [employer] WORKER Normal 0 - 1+ [facility] Comment on above: Performed By: #### B MP #### [facility] [address] [place] [address] Casts [employer]IMEHOU[employer] WORKER Normal [facility] Comment on above: Performed By: #### B MP #### [facility] [address] [place] [address] Casts. [employer]IMEHOUSE WORKER Normal [facility] Comment on above: Performed By: #### B MP #### [facility] [address] [place] [address] Crystals LM Nom (Urine sed) [employer]IMEHOUSE WORKER Normal [facility] Comment on above: Performed By: #### B MP #### [facility] [address] [place] [address] Crystals. [employer]IMEHOU[employer] WORKER Normal [facility] Comment on above: Performed By: #### B MP #### [facility] [address] [place] [address] Epithelial cells LM Ql (Urine sed) [employer] WORKER Normal 0 - 6 [facility] Comment on above: Performed By: #### B MP #### [facility] [address] [place] [address] Glucose Ql (U) NORMAL Normal Negative [facility] Comment on above: Performed By: #### B MP #### [facility] [address] [place] [address] Hemoglobin Ql (U) 10 Abnormal Negative [facility] Comment on above: Performed By: #### B MP #### [facility] [address] [place] [address] Leukocytes Esterase Negative Normal Negative [facility] Comment on above: Performed By: #### B MP #### [facility] [address] [place] [address] Mucus Ql (Urine sed) [employer] WORKER Normal [facility] Comment on above: Performed By: #### B MP #### [facility] [address] [place] [address] RBC 0-2 Normal 0 - 2 [facility] Comment on above: Performed By: #### B MP #### [facility] [address] [place] [address] Trichomonas [employer] WORKER Normal [facility] Comment on above: Performed By: #### B MP #### [id number] [place] [address] Urobilinogen NORMAL Normal Normal-1.0 [facility] Comment on above: Performed By: #### B MP #### [address] [place] [address] WBC None Seen Normal 0 - 6 [facility] Comment on above: Performed By: #### B MP #### [address] [place] [address] Yeast [employer] WORKER Normal [facility] Comment on above: Performed By: #### B MP #### [id number] [place] [address] Other [employer] WORKER Normal [facility] Comment on above: Performed By: #### B MP #### [id number] [place] [address] Urine appearance determinati onOrdered By: BRYANNA GAFFNEY on 07-19-2025 Appearance (U) Clear Normal Clear [facility] Comment on above: Performed By: #### B MP #### [address] [place] [address] Urine color determinationOrd ered By: BRYANNA GAFFNEY on 07-19-2025 Color (U) yellow Normal Yellow [facility] Comment on above: Performed By: #### B MP #### [id number] [place] [address] Urine glucose measurement by test strip (mass/volume)Ordered By: BRYANNA GAFFNEY on 07-19-2025 Glucose Test strip (U) [Mass/Vol] Normal Negative [facility] Urine ketones detection by t est stripOrdered By: BRYANNA GAFFNEY on 07-19-2025 Ketones Ql (U) Negative Normal Negative [facility] Comment on above: Performed By: #### B MP #### [address] [place] [address] Urine leukocytes count (numb er/volume)Ordered By: BRYANNA GAFFNEY on 07-19-2025 WBC (U) [#/Vol] None seen [HPF] 0 - 6 [facility] Urine nitrite test by dipsti ckOrdered By: BRYANNA GAFFNEY on 07-19-2025 Nitrite Ql (U) Negative Normal Negative [facility] Comment on above: Performed By: #### B MP #### [id number] [place] [address] Urine pH test by dipstickOrd ered By: BRYANNA GAFFNEY on 07-19-2025 pH (U) 6.5 [pH] Normal [facility] Comment on above: Performed By: #### B MP #### [address] [address] Urine total bilirubin detect ionOrdered By: BRYANNA GAFFNEY on 07-19-2025 Bilirubin Ql (U) Negative Normal Negative [facility] Comment on above: Performed By: #### B MP #### [facility] [address] [place] [address] Urine urobilinogen measureme ntOrdered By: BRYANNA GAFFNEY on 07-19-2025 Urobilinogen Ql (U) Normal mg/dL Normal-1.[address] [facility] Venous blood base excess eryn surementOrdered By: BRYANNA GAFFNEY on 07-19-2025 Base excess Calc (BldV) [Moles/Vol] -1.2000 mmol/L -2.99-3.1 [facility] Venous blood carboxyhemoglob in/total hemoglobin ratioOrdered By: BRYANNA GAFFNEY on 07-19-2025 Carboxyhemoglobin (BldV) [Mass fraction] 3.2 % High 0.0-3.1 [facility] Venous blood gasOrdered By: BRYANNA GAFFNEY on 07-19-2025 Gas panel (BldV) unknown [facility] Venous blood lactic acid eryn surement (moles/volume)Ordered By: RBYANNA GAFFNEY on 07-19-2025 Lactate (BldV) [Moles/Vol] 1.4 mmol/L 0.4-2.0 [facility] Comment on above: Please note change i n normal range Venous blood methemoglobin/t otal hemoglobinOrdered By: BRYANNA GAFFNEY on 07-19-2025 Methemoglobin (BldV) [Mass fraction] 0.3 0.0-3.1 [facility] Venous blood oxygen saturati on (mass fraction)Ordered By: BRYANNA GAFFNEY on 07-19-2025 Oxygen saturation in Venous blood 87.7 % High 59.9-85.1 [facility] Venous blood pH measurementO rdered By: BRYANNA GAFFNEY on 07-19-2025 pH (BldV) 7.335 [pH] Low 7.349-7.46 [facility] Venous blood partial pressur e of carbon dioxide measurementOrdered By: BRYANNA GAFFNEY on 07-19-2025 CO2 (BldV) [Partial pressure] 48.0 mm[Hg] 40.9-51.1 [facility] Venous blood partial pressur e of oxygen measurementOrdered By: BRYANNA GAFFNEY on 07-19-2025 Oxygen (BldV) [Partial pressure] 55.1 mm[Hg] High 29.9-40.1 [facility] Ventilator settings Document Ordered By: BRYANNA GAFFNEY on 07-19-2025 Ventilator settings Document lms [facility] rapid SARS CoV + SARS CoV 2 Ag, QL IA, respiratory specimenon 07-19-2025 sars antigen Positive Abnormal Negative [place] [facility] Work Phone: Comment on above: The Chio 2 SARS Ant igen ONESIMO is a lateral flow immunofluorescent sandwich assay that is used with the Chio 2 instrument intended for the qualitative detection of the nucleocapsid protein antigen from SARS-CoV-2 in nasopharyngeal (LIMEHOUSE WORKER) and nasal (NS) swab specimens directly or after the swabs have been added to viral transport media from individuals who are suspected of COVID-19 by their healthcare provider. Testing is limited to laboratories certified under the Clinical Laboratory Improvement Amendments of 1988 (CLIA), 42 U.S.C. 263a, that meet the requirements to perform moderate, high or waived complexity tests. This test is authorized for use at the Point of Care (POC), i.e., in patient care settings operating under a CLIA Certificate of Waiver, Certificate of Compliance, or Certificate of Accreditation. The SARS Antigen ONESIMO does not differentiate between SARS-CoV and SARS-CoV-2. Results are for the identification of SARS-CoV-2 nucleocapsid protein antigen. Antigen is generally detectable in upper respiratory specimens during the acute phase of infection. Positive results indicate the presence of viral antigens, but clinical correlation with patient history and other diagnostic information is necessary to determine infection status. Positive results do not rule out bacterial infection or co-infection with other viruses. The agent detected may not be the definite cause of disease. Negative results should be treated as presumptive and confirmed with a molecular assay, if necessary for patient management. Negative results do not rule out COVID-19 and should not be used as the sole basis for treatment or patient management decisions, including infection control decisions. Negative results should be considered in the context of a patient s recent exposures, history and the presence of clinical signs and symptoms consistent with COVID-19. Result Comment: The Chio 2 SARS Antigen ONESIMO is a lateral flow immunofluorescent sandwich assay that is used with the Chio 2 instrument intended for the qualitative detection of the nucleocapsid protein antigen from SARS-CoV-2 in nasopharyngeal ([employer]) and nasal (NS) swab specimens directly or after the swabs have been added to viral transport media from individuals who are suspected of COVID-19 by their healthcare provider. Testing is limited to laboratories certified under the Clinical Laboratory Improvement Amendments of 1988 (CLIA), 42 U.S.C. ?263a, that meet the requirements to perform moderate, high or waived complexity tests. This test is authorized for use at the Point of Care (POC), i.e., in patient care settings operating under a CLIA Certificate of Waiver, Certificate of Compliance, or Certificate of Accreditation. The SARS Antigen ONESIMO does not differentiate between SARS-CoV and SARS-CoV-2. Results are for the identification of SARS-CoV-2 nucleocapsid protein antigen. Antigen is generally detectable in upper respiratory specimens during the acute phase of infection. Positive results indicate the presence of viral antigens, but clinical correlation with patient history and other diagnostic information is necessary to determine infection status. Positive results do not rule out bacterial infection or co-infection with other viruses. The agent detected may not be the definite cause of disease. Negative results should be treated as presumptive and confirmed with a molecular assay, if necessary for patient management. Negative results do not rule out COVID-19 and should not be used as the sole basis for treatment or patient management decisions, including infection control decisions. Negative results should be considered in the context of a patient?s recent exposures, history and the presence of clinical signs and symptoms consistent with COVID-19. Performed By: #### M G #### [address] [id number] imaging/diagnostic resulton 06-30-2025 NEGATED: Highlighted rowimaging/diagnostic result [facility] Portable X-Ray XR Chest 2 Viewson NEGATED: Highlighted rowXR, chest, 2 view [facility] Portable X-Ray UA w/reflex cultureon 2024 Appearance (U) CLEAR Normal Clear [facility] Comment on above: Performed By: #### B MP #### [address] [address] Bilirubin Ql (U) Negative Normal Negative [facility] Comment on above: Performed By: #### B MP #### [facility] [address] [place] [address] Color (U) yellow Normal Yellow [facility] Comment on above: Performed By: #### B MP #### [facility] [address] [place] [address] Glucose Ql (U) NORMAL Normal Negative [facility] Comment on above: Performed By: #### B MP #### [facility] [address] [place] [address] Hemoglobin Ql (U) Negative Normal Negative [facility] Comment on above: Performed By: #### B MP #### [address] [place] [address] Ketones Ql (U) Negative Normal Negative [facility] Comment on above: Performed By: #### B MP #### [facility] [address] [place] [address] Leukocytes Esterase Negative Normal Negative [facility] Comment on above: Performed By: #### B MP #### [facility] [address] [place] [address] Nitrite Ql (U) Negative Normal Negative [facility] Comment on above: Performed By: #### B MP #### [facility] [address] [place] [address] pH (U) 7 [pH] Normal [facility] Comment on above: Performed By: #### B MP #### [facility] [address] [place] [address] Protein Ql (U) Negative Normal Negative [facility] Comment on above: Performed By: #### B MP #### [address] [place] [address] Specific gravity (U) [Rel density] 1.010 Low 1.015-1.025 [facility] Comment on above: Performed By: #### B MP #### [address] [place] [address] Urobilinogen NORMAL Normal Normal-1.0 [facility] Comment on above: Performed By: #### B MP #### [place] [address] CBC w/Auto Differentialon Basophils Abs. # 0.04 K/uL Normal 0.00-0.10 [facility] Comment on above: Performed By: #### C BCS #### [address] [place] [address] Basophils/100 WBC (Bld) 0.7 % Normal 0.2-1.0 [facility] Comment on above: Performed By: #### C BCS #### [address] [place] [address] Eosinophils (Bld) [#/Vol] 0.10 10*3/uL Normal 0.00-0.20 [facility] Comment on above: Performed By: #### C BCS #### [address] [place] [address] Eosinophils/100 WBC (Bld) 2.3 % Normal 0.9-2.9 [facility] Comment on above: Performed By: #### C BCS #### [address] [place] [address] Erythrocyte distribution width (RBC) [Ratio] 14.1 % Normal 11.5-14.5 [facility] Comment on above: Performed By: #### C BCS #### [address] [place] [address] Hematocrit (Bld) [Volume fraction] 38.1 % Normal 36.7-50.6 [facility] Comment on above: Performed By: #### C BCS #### [place] [address] Hemoglobin (Bld) [Mass/Vol] 12.2 g/dL Low 12.4-17.3 [facility] Comment on above: Performed By: #### C BCS #### [address] [address] Imm Grans % 0.00 % Normal 0.00-1.00 [facility] Comment on above: Performed By: #### C BCS #### [address] [address] Imm Grans Absolute # 0.00 K/uL Normal 0.00-0.10 [facility] Comment on above: Performed By: #### C BCS #### [address] [address] Lymphocytes (Bld) [#/Vol] 1.80 10*3/uL Normal 1.30-2.90 [facility] Comment on above: Performed By: #### C BCS #### [address] [place] [address] Lymphocytes/100 WBC (Bld) 29.7 % Normal 17.0-45.5 [facility] Comment on above: Performed By: #### C BCS #### [address] [address] MCH (RBC) [Entitic mass] 31.9 pg High 27.0-31.0 [facility] Comment on above: Performed By: #### C BCS #### [address] [place] [address] MCHC (RBC) [Mass/Vol] 32.0 g/dL Low 33.0-37.[address] [facility] Comment on above: Performed By: #### C BCS #### [address] [place] [address] MCV (RBC) [Entitic vol] 99.7 fL High 80.0-94.0 [facility] Comment on above: Performed By: #### C BCS #### [address] [place] [address] Monocytes (Bld) [#/Vol] 0.40 10*3/uL Normal 0.30-0.80 [facility] Comment on above: Performed By: #### C BCS #### [address] [place] [address] Monocytes/100 WBC (Bld) 6.4 % Normal 5.5-11.7 [facility] Comment on above: Performed By: #### C BCS #### [address] [place] [address] Neutrophils Abs. # 3.72 K/uL Normal 2.20-4.80 [facility] Comment on above: Performed By: #### C BCS #### [address] [place] [address] Neutrophils/100 WBC (Bld) 60.9 % Normal 43.0-65.0 [facility] Comment on above: Performed By: #### C BCS #### [address] [address] Platelet mean volume (Bld) [Entitic vol] 8.9 fL Normal 7.4-10.4 [facility] Comment on above: Performed By: #### C BCS #### [address] [place] [address] Platelets (Bld) [#/Vol] 301 10*3/uL Normal 148-402 [facility] Comment on above: Performed By: #### C BCS #### [address] [place] [address] RBC (Bld) [#/Vol] 3.82 10*6/uL Low 4.13-5.69 [facility] Comment on above: Performed By: #### C BCS #### [address] [address] WBC (Bld) [#/Vol] 6.1 10*3/uL Normal 3.6-10.8 [facility] Comment on above: Performed By: #### C BCS #### [address] [place] [address] Comprehensive Metabolic Pane sánchez 04-30-2025 Albumin [Mass/Vol] 3.3 g/dL Low 3.4-5.0 [facility] Comment on above: Performed By: #### C MP #### [address] [address] Albumin/Globulin [Mass ratio] 0.9 {ratio} Low 1.1-2.5 [facility] Comment on above: Performed By: #### C MP #### [address] [place] [address] ALP [Catalytic activity/Vol] 46 U/L Low 54-112 [facility] Comment on above: Performed By: #### C MP #### [facility] [address] [place] [address] ALT [Catalytic activity/Vol] 34 U/L Normal 13-66 [facility] Comment on above: Performed By: #### C MP #### [facility] [address] [place] [address] Anion gap [Moles/Vol] 9.3 mmol/L Normal 8.0-16.[address] [facility] Comment on above: Performed By: #### C MP #### [facility] [address] [place] [address] AST [Catalytic activity/Vol] 34 U/L Normal 3-39 [facility] Comment on above: Performed By: #### C MP #### [facility] [address] [place] [address] Bilirubin [Mass/Vol] 0.51 mg/dL Normal 0.00-0.99 [facility] Comment on above: Performed By: #### C MP #### [facility] [address] [place] [address] Calcium [Mass/Vol] 9.1 mg/dL Normal 8.2-10.0 [facility] Comment on above: Performed By: #### C MP #### [facility] [address] [place] [address] Chloride [Moles/Vol] 106 mmol/L Normal 94-110 [facility] Comment on above: Performed By: #### C MP #### [facility] [address] [place] [address] CO2 [Moles/Vol] 30 mmol/L Normal 21-34 [facility] Comment on above: Performed By: #### C MP #### [facility] [address] [place] [address] Creatinine [Mass/Vol] 1.80 mg/dL High 0.50-1.[address] [facility] Comment on above: Performed By: #### C MP #### [address] [place] [address] EGFR Other Races 36 Abnormal >60 [facility] Comment on above: Performed By: #### C MP #### [address] [place] [address] GFR/1.73 sq M.predicted among blacks MDRD (S/P/Bld) [Vol rate/Area] 44 mL/min/{1.73_m2} Abnormal >60 [facility] Comment on above: Result Comment: [employer] Agent andree Kidney Disease less than 60 mL/min/1.73 m2 Kidney Failure less than 15 mL/min/1.73 m2 Average estimated GFR by age: 70+ years 75 mL/min/1.73 m2 Performed By: #### C MP #### [address] [place] [address] Globulin (S) [Mass/Vol] 3.6 g/dL Normal 1.5-4.5 [facility] Comment on above: Performed By: #### C MP #### [address] [address] Glucose [Mass/Vol] 204 mg/dL High 65-100 [facility] Comment on above: Performed By: #### C MP #### [address] [place] [address] Potassium [Moles/Vol] 4.3 mmol/L Normal 3.3-5.[address] [facility] Comment on above: Performed By: #### C MP #### [address] [address] Protein [Mass/Vol] 6.9 g/dL Normal 6.1-8.2 [facility] Comment on above: Performed By: #### C MP #### [facility] [address] [place] [address] Sodium [Moles/Vol] 141 mmol/L Normal 132-145 [facility] Comment on above: Performed By: #### C MP #### [address] [place] [address] Urea nitrogen [Mass/Vol] 24.2 mg/dL Normal 3.2-26.9 [facility] Comment on above: Performed By: #### C MP #### [address] [place] [address] Urea nitrogen/Creatinine [Mass ratio] 13 mg/mg Normal 6-20 [facility] Comment on above: Performed By: #### C MP #### [address] [place] [address] Hemoglobin A1con 04-30-2025 HbA1c (Bld) [Mass fraction] 6.2 % High 4.8-5.6 [facility] Comment on above: Result Comment: Pred iabetes: 5.7 - 6.4 Diabetes: >6.4 Glycemic control for adults with diabetes: <7.0 Performed at: - [facility] [address] [place], [place] [id number] Field Support Technician: Ike Steward PhD, Phone: [phone] Performed By: #### C MP #### [address] [address] PROGRESS NOTEon 11-09-2024 PROGRESS NOTE [id number] HEALTH INFORMATION MANAGEMENT PROGRESS NOTE : [id number] Signed Patient: WILEY MEEK Acct:[id number] MRUN: [id number] : 1940 Sex: M Loc: ICU ADM Date: Room/Bed: 354-A DISC Date: 10/24/24 _ Subjective Assessment Date Of Service: 10/23/24 Events Since Admission: WILEY MEEK was admitted to MEDICAL SURGICAL service into room 354 on 10/22/24 at 16:42 for complaints of ALTERED MENTAL STATUS ACUTE ON CHRONIC RENAL FAILU. The patient's laboratory testing and diagnostic testing has been reviewed. Status: Pt Condition Improving, New Labs Ordered, New Testing Ordered Subjective Note: Patient was seen and examined this morning. patient confusion is improving, he is alert and oriented x2, which is his baseline. Condition: Stable General: Confirms: Weakness. Denies: Fever, Chills, Sweats Respiratory: Denies: Cough, Shortness of Breath, Wheezing Cardiovascular: Denies: Chest Pain-Sharp, Orthopnea, Paroxysmal Noc. Dyspnea, Edema Gastrointestinal: Denies: Nausea, Vomiting, Abdominal Pain Genitourinary: Denies: Dysuria, Frequency, Incontinence Musculoskeletal: Denies: Neck Pain, Shoulder Pain, Arm Pain Neurological: Confirms: Weakness. Denies: Numbness, Incoordination Objective Findings Sepsis focused exam performed?: Yes Review of Systems Completed?: Yes General: Yes: Alert, Oriented, Cooperative/Pleasant, No acute distress. No: Confused HEENT: Yes: Atraumatic, PERRLA, PERRL, Mucous membr. moist/pink, EOMI Neck: Yes: Supple. No: JVD Lungs: Yes: Clear to auscultation, Normal air movement, Unlabored Cardiovascular: Yes: Regular rate, Normal S2, Normal S1, No murmurs Abdomen: Yes: Bowel Sounds X4, Soft, No Tenderness. No: Large/Obese, Distended, Ascitic Genitourinary/Rectal: No: Bladder Distention Extremities: Yes: Normal pulses. No: Clubbing, Cyanosis, Edema, Bilateral Leg Edema Skin: No: Rashes, Surgical Incision Locatio Neurological: Yes: Speech Clear, Normal tone, Sensation intact Psych/Mental Status: Yes: Mental status NL, Mood Appropriate Vitals and I O: Vital Signs Temperature 97.8 F 10/23/24 20:08 Pulse Rate 74 10/23/24 22:22 Respiratory Rate 18 10/23/24 08:40 Blood Pressure 111/60 10/23/24 22:22 O2 Sat by Pulse Oximetry(%) 94 L 10/23/24 20:08 FiO2 - Manual Entry Intake Output 10/22/24 10/23/24 10/23/24 23:59 11:59 23:59 Intake Total 2000 480 1241 Output Total 800 400 700 Balance 1200 80 541 Weight 192 lb 3.2 oz 191 lb 14.4 oz Intake: IV Intake 1999 Rocephin 2 Gram Injection 100 2 gm In Sodium Chloride 0.9 % 100 ml 100 ml @ 100 mls/hr IVPB STAT STA Rx# :[id number] Sodium Chloride 0.9 % 1000 1000 ml 1,000 ml @ 999 mls/hr IV .Q1H1M STA Rx#: [id number] Sodium Chloride 0.9 % 900 1000 ml 2,700 ml @ 900 mls/hr IV .Q3H PRN Rx#: [id number] Intake ml 480 1241 Oral 600 Output: Output ml 800 400 700 Urine 800 400 700 Other: Output Urine Nonnumeric/ Comment Urine inc lg x-lg incont Output stool Nonnumeric/ Comment Stool lg formed Laboratory-Last 48 hrs: 10/23/24 04:36 10/23/24 04:36 Laboratory Results-last 24 hrs 10/22/24 15:30: BUN 28.9 H, Creatinine 1.84 H, Est GFR (MDRD) Af Amer 43 A, Est GFR (MDRD) Non-Af 35 A, Glucose 166 H, Alkaline Phosphatase 46 L, Albumin 3.1 L, Albumin/Globulin Ratio 0.9 L 10/22/24 15:30: RBC 3.93 L, MCV 98.2 H, MCH 31.6 H, MCHC 32.1 L 10/22/24 20:15: ESR 22 H 10/23/24 04:36: Creatinine 1.62 H, Est GFR (MDRD) Af Amer 50 A, Est GFR (MDRD) Non-Af 41 A, Glucose 108 H, Alkaline Phosphatase 41 L, Total Protein 6.0 L, Albumin 2.8 L, Albumin/Globulin Ratio 0.9 L 10/23/24 04:36: RBC 3.61 L, Hgb 11.4 L, Hct 35.3 L, MCV 97.8 H, MCH 31.6 H, MCHC 32.3 L, Eos % (Auto) 3.6 H Radiology-Impressions: See radiology reports in electronic medical record. Impressions - Problems (1) Acute on chronic renal failure Problems: Acute renal failure type: unspecified Chronic kidney disease stage: stage 3 (moderate) C hronic kidney disease stage 3 subtype: stage 3b (GFR 30-44) Qualified Code(s): N17.9 - Acute kidney failure, unspecified; N18.32 - Chronic kidney disease, stage 3b Status: Acute Priority: High (2) Dehydration Status: Acute Priority: High (3) Metabolic encephalopathy Status: Acute Priority: High (4) Diabetes mellitus type 2 Status: Chronic Priority: Medium Plan/Treatment Plan: Mr. Meek an 84-year-old male comes to [facility] from [facility] with complaints of confusion change in mental status. 1. Metabolic encephalopathy, improving Patient is alert and oriented x2, which is his baseline. CT of the brain f (more content not included)... Normal [facility] Basic Metabolic Panelon 10-17 Anion gap [Moles/Vol] 13.3 mmol/L Normal 8.0-16.0 [facility] Comment on above: Performed By: #### P T #### [facility] [address] [place], [place] [id number] Calcium [Mass/Vol] 8.7 mg/dL Normal 8.2-10.0 [facility] Comment on above: Performed By: #### P T #### [facility] [address] [place], [place] [id number] Chloride [Moles/Vol] 106 mmol/L Normal 94-110 [facility] Comment on above: Performed By: #### P T #### [facility] [address] [place] [address] CO2 [Moles/Vol] 28 mmol/L Normal 21-34 [facility] Comment on above: Performed By: #### P T #### [facility] [address] [place] [address] Creatinine [Mass/Vol] 1.60 mg/dL High 0.50-1.[address] [facility] Comment on above: Performed By: #### P T #### [facility] [address] [place] [address] EGFR Other Races 42 Abnormal >60 [facility] Comment on above: Performed By: #### P T #### [facility] [address] [place] [address] GFR/1.73 sq M.predicted among blacks MDRD (S/P/Bld) [Vol rate/Area] 50 mL/min/{1.73_m2} Abnormal >60 [facility] Comment on above: Result Comment: [employer] Agent andree Kidney Disease less than 60 mL/min/1.73 m2 Kidney Failure less than 15 mL/min/1.73 m2 Average estimated GFR by age: 70+ years 75 mL/min/1.73 m2 Performed By: #### P T #### [facility] [address] [place] [address] Glucose [Mass/Vol] 138 mg/dL High 65-100 [facility] Comment on above: Performed By: #### P T #### [facility] [address] [place], [place] [id number] Potassium [Moles/Vol] 4.3 mmol/L Normal 3.3-5.[address] [facility] Comment on above: Performed By: #### P T #### [facility] [address] [place] [address] Sodium [Moles/Vol] 143 mmol/L Normal 132-145 [facility] Comment on above: Performed By: #### P T #### [facility] [address] [place] [address] Urea nitrogen [Mass/Vol] 20.5 mg/dL Normal 3.2-26.9 [facility] Comment on above: Performed By: #### P T #### [facility] [address] [place] [address] Urea nitrogen/Creatinine [Mass ratio] 13 mg/mg Normal 6-20 [facility] Comment on above: Performed By: #### P T #### [address] [address] Basic Metabolic Panelon 10-16 Anion gap [Moles/Vol] 9.4 mmol/L Normal 8.0-16.[address] [facility] Comment on above: Performed By: #### B MP #### [address] [place] [address] Calcium [Mass/Vol] 8.7 mg/dL Normal 8.2-10.0 [facility] Comment on above: Performed By: #### B MP #### [address] [place] [address] Chloride [Moles/Vol] 107 mmol/L Normal 94-110 [facility] Comment on above: Performed By: #### B MP #### [address] [place] [address] CO2 [Moles/Vol] 28 mmol/L Normal 21-34 [facility] Comment on above: Performed By: #### B MP #### [address] [place] [address] Creatinine [Mass/Vol] 1.82 mg/dL High 0.50-1.[address] [facility] Comment on above: Performed By: #### B MP #### [facility] [address] [place] [address] EGFR Other Races 36 Abnormal >60 [facility] Comment on above: Performed By: #### B MP #### [facility] [address] [place] [address] GFR/1.73 sq M.predicted among blacks MDRD (S/P/Bld) [Vol rate/Area] 43 mL/min/{1.73_m2} Abnormal >60 [facility] Comment on above: Result Comment: [employer] Agent andree Kidney Disease less than 60 mL/min/1.73 m2 Kidney Failure less than 15 mL/min/1.73 m2 Average estimated GFR by age: 70+ years 75 mL/min/1.73 m2 Performed By: #### B MP #### [facility] [address] [place] [address] Glucose [Mass/Vol] 184 mg/dL High 65-100 [facility] Comment on above: Performed By: #### B MP #### [address] [place] [address] Potassium [Moles/Vol] 4.4 mmol/L Normal 3.3-5.[address] [facility] Comment on above: Performed By: #### B MP #### [facility] [address] [place] [address] Sodium [Moles/Vol] 140 mmol/L Normal 132-145 [facility] Comment on above: Performed By: #### B MP #### [facility] [address] [place] [address] Urea nitrogen [Mass/Vol] 22.0 mg/dL Normal 3.2-26.9 [facility] Comment on above: Performed By: #### B MP #### [address] [address] Urea nitrogen/Creatinine [Mass ratio] 12 mg/mg Normal 6-20 [facility] Comment on above: Performed By: #### B MP #### [address] [address] Absolute immature granulocyt e countOrdered By: KHALIF ZAYAS on 10-24-2024 Immature granulocytes (Bld) [#/Vol] Absolute immature granulocyte count 0.00-1.00 [facility] Absolute lymphocyte countOrd ered By: KHALIF ZAYAS on 10-24-2024 Lymphocytes Auto (Unsp spec) [#/Vol] Absolute lymphocyte count 1.30-2.90 [facility] Basophils Auto (Bld) [#/Vol] Ordered By: KHALIF ZAYAS on 10-24-2024 Basophils (Bld) [#/Vol] Automated blood basophil count (number/volume) 0.00-0.10 [facility] Bedside Glucose (Point of Ca re)on 10-24-2024 Glucose [Mass/Vol] 139 mg/dL Normal 65-110 [facility] Comment on above: Performed By: #### B MP #### [address] [id number] Blood absolute eosinophil co untOrdered By: KHALIFRA ZAYAS on 10-24-2024 Eosinophils (Bld) [#/Vol] Blood absolute eosinophil count 0.00-0.20 [facility] Blood basophils/100 leukocyt esOrdered By: KHALIFRA ZAYAS on 10-24-2024 Basophils/100 WBC (Bld) Blood basophils/100 leukocytes 0.2-1.0 [facility] Blood erythrocytes count (nu mber/volume)Ordered By: KHALIF ZAYAS on 10-24-2024 RBC (Bld) [#/Vol] Blood erythrocyte count Low 4.13- 5.69 [facility] Blood hematocrit (volume fra ction)Ordered By: KHALIF ZAYAS on 10-24-2024 Hematocrit (Bld) [Volume fraction] Blood hematocrit (volume fraction) Low 36.7-50.6 [facility] Blood hemoglobin A1c measure ment (mass/volume)Ordered By: KHALIF ZAYAS on 10-24-2024 HbA1c (Bld) [Mass/Vol] Blood hemoglobin A1c measurement (mass/volume) High 4.8-5.6 [facility] Comment on above: Prediabetes: 5.7 - 6 .4 Diabetes: >6.4 Glycemic control for adults with diabetes: <7.0Performed at: [facility] [address] [id number] Director: Ike Steward PhD, Phone: [phone] Blood leukocytes count (numb er/volume)Ordered By: KHALIF ZAYAS on 10-24-2024 WBC (Bld) [#/Vol] Blood leukocytes cou nt (number/volume) 3.6-10.8 [facility] Blood platelet mean volumeOr dered By: KHALIF ZAYAS on 10-24-2024 Platelet mean volume (Bld) [Entitic vol] Blood platelet mean volume 7.4-10.4 [facility] CBC w/Auto Differentialon Basophils Abs. # 0.03 K/uL Normal 0.00-0.10 [facility] Comment on above: Performed By: #### 3 TSH #### [facility] [address] [place] [address] Basophils/100 WBC (Bld) 0.5 % Normal 0.2-1.0 [facility] Comment on above: Performed By: #### 3 TSH #### [facility] [address] [place] [address] Eosinophils (Bld) [#/Vol] 0.20 10*3/uL Normal 0.00-0.20 [facility] Comment on above: Performed By: #### 3 TSH #### [address] [place] [address] Eosinophils/100 WBC (Bld) 2.9 % Normal 0.9-2.9 [facility] Comment on above: Performed By: #### 3 TSH #### [place] [address] Erythrocyte distribution width (RBC) [Ratio] 13.6 % Normal 11.5-14.5 [facility] Comment on above: Performed By: #### 3 TSH #### [place] [address] Hematocrit (Bld) [Volume fraction] 36.6 % Low 36.7-50.6 [facility] Comment on above: Performed By: #### 3 TSH #### [place] [address] Hemoglobin (Bld) [Mass/Vol] 11.8 g/dL Low 12.4-17.3 [facility] Comment on above: Performed By: #### 3 TSH #### [place] [id number] Imm Grans % 0.00 % Normal 0.00-1.00 [facility] Comment on above: Performed By: #### 3 TSH #### [place] [address] Imm Grans Absolute # 0.00 K/uL Normal 0.00-0.10 [facility] Comment on above: Performed By: #### 3 TSH #### [place] [address] Lymphocytes (Bld) [#/Vol] 1.70 10*3/uL Normal 1.30-2.90 [facility] Comment on above: Performed By: #### 3 TSH #### [facility] [address] [place] [address] Lymphocytes/100 WBC (Bld) 30.4 % Normal 17.0-45.5 [facility] Comment on above: Performed By: #### 3 TSH #### [address] [place] [address] MCH (RBC) [Entitic mass] 32.0 pg High 27.0-31.0 [facility] Comment on above: Performed By: #### 3 TSH #### [address] [address] MCHC (RBC) [Mass/Vol] 32.2 g/dL Low 33.0-37.[address] [facility] Comment on above: Performed By: #### 3 TSH #### [address] [place] [address] MCV (RBC) [Entitic vol] 99.2 fL High 80.0-94.0 [facility] Comment on above: Performed By: #### 3 TSH #### [address] [place] [address] Monocytes (Bld) [#/Vol] 0.50 10*3/uL Normal 0.30-0.80 [facility] Comment on above: Performed By: #### 3 TSH #### [address] [place] [address] Monocytes/100 WBC (Bld) 8.4 % Normal 5.5-11.7 [facility] Comment on above: Performed By: #### 3 TSH #### [address] [place] [address] Neutrophils Abs. # 3.23 K/uL Normal 2.20-4.80 [facility] Comment on above: Performed By: #### 3 TSH #### [address] [place] [address] Neutrophils/100 WBC (Bld) 57.8 % Normal 43.0-65.0 [facility] Comment on above: Performed By: #### 3 TSH #### [address] [place] [address] Platelet mean volume (Bld) [Entitic vol] 8.9 fL Normal 7.4-10.4 [facility] Comment on above: Performed By: #### 3 TSH #### [address] [place] [address] Platelets (Bld) [#/Vol] 264 10*3/uL Normal 148-402 [facility] Comment on above: Performed By: #### 3 TSH #### [address] [place] [address] RBC (Bld) [#/Vol] 3.69 10*6/uL Low 4.13-5.69 [facility] Comment on above: Performed By: #### 3 TSH #### [address] [place] [address] WBC (Bld) [#/Vol] 5.6 10*3/uL Normal 3.6-10.8 [facility] Comment on above: Performed By: #### 3 TSH #### [address] [place] [address] Calcium measurement (mass fr action)Ordered By: KHALIF ZAYAS on 10-24-2024 Calcium (Unsp spec) [Mass fraction] Calcium measurement (mass fraction) 8.2-10.0 [facility] Comprehensive Metabolic Pane sánchez 10-24-2024 Albumin [Mass/Vol] 2.8 g/dL Low 3.4-5.0 [facility] Comment on above: Performed By: #### B MP #### [address] [place] [address] Albumin/Globulin [Mass ratio] 0.8 {ratio} Low 1.1-2.5 [facility] Comment on above: Performed By: #### B MP #### [address] [place] [address] ALP [Catalytic activity/Vol] 43 U/L Low 54-112 [facility] Comment on above: Performed By: #### B MP #### [address] [address] ALT [Catalytic activity/Vol] 29 U/L Normal 13-66 [facility] Comment on above: Performed By: #### B MP #### [address] [address] Anion gap [Moles/Vol] 9.5 mmol/L Normal 8.0-16.[address] [facility] Comment on above: Performed By: #### B MP #### [address] [address] AST [Catalytic activity/Vol] 35 U/L Normal 3-39 [facility] Comment on above: Performed By: #### B MP #### [address] [place] [address] Bilirubin [Mass/Vol] 0.35 mg/dL Normal 0.00-0.99 [facility] Comment on above: Performed By: #### B MP #### [facility] [address] [place] [address] Calcium [Mass/Vol] 8.5 mg/dL Normal 8.2-10.0 [facility] Comment on above: Performed By: #### B MP #### [facility] [address] [place] [address] Chloride [Moles/Vol] 107 mmol/L Normal 94-110 [facility] Comment on above: Performed By: #### B MP #### [facility] [address] [place] [address] CO2 [Moles/Vol] 30 mmol/L Normal 21-34 [facility] Comment on above: Performed By: #### B MP #### [facility] [address] [place] [address] Creatinine [Mass/Vol] 1.46 mg/dL High 0.50-1.[address] [facility] Comment on above: Performed By: #### B MP #### [facility] [address] [place] [address] EGFR Other Races 46 Abnormal >60 [facility] Comment on above: Performed By: #### B MP #### [facility] [address] [place] [address] GFR/1.73 sq M.predicted among blacks MDRD (S/P/Bld) [Vol rate/Area] 56 mL/min/{1.73_m2} Abnormal >60 [facility] Comment on above: Result Comment: [employer] Agent andree Kidney Disease less than 60 mL/min/1.73 m2 Kidney Failure less than 15 mL/min/1.73 m2 Average estimated GFR by age: 70+ years 75 mL/min/1.73 m2 Performed By: #### B MP #### [facility] [address] [place] [address] Globulin (S) [Mass/Vol] 3.4 g/dL Normal 1.5-4.5 [facility] Comment on above: Performed By: #### B MP #### [facility] [address] [place] [address] Glucose [Mass/Vol] 121 mg/dL High 65-100 [facility] Comment on above: Performed By: #### B MP #### [facility] [address] [place] [address] Potassium [Moles/Vol] 4.5 mmol/L Normal 3.3-5.[address] [facility] Comment on above: Performed By: #### B MP #### [address] [place] [address] Protein [Mass/Vol] 6.2 g/dL Normal 6.1-8.2 [facility] Comment on above: Performed By: #### B MP #### [address] [place] [address] Sodium [Moles/Vol] 142 mmol/L Normal 132-145 [facility] Comment on above: Performed By: #### B MP #### [address] [place] [address] Urea nitrogen [Mass/Vol] 21.2 mg/dL Normal 3.2-26.9 [facility] Comment on above: Performed By: #### B MP #### [address] [place] [address] Urea nitrogen/Creatinine [Mass ratio] 15 mg/mg Normal 6-20 [facility] Comment on above: Performed By: #### B MP #### [address] [place] [address] Determination of erythrocyte mean corpuscular volume (MCV)Ordered By: KHALIF ZAYAS on 10-24-2024 MCV (RBC) [Entitic vol] Determination of erythrocyte mean corpuscular volume (MCV) High 80.0-94.0 [facility] EKG reportOrdered By: ANICETO GAFFNEY on 10-24-2024 EKG study [place] [id number] CARDIOLOGY Patient:WILEY MEEK Acct:[id number] Unit:[id number] :1940 Loc:ICU Jillian m:[id number] Att:BRYANNA GAFFNEY MD Ord#:[id number] Adm:10/22/24 -- CAR/EKG [facility] ED Test Date: 2024-10-22 Test Time: 15:20:28 Pat Name: WILEY MEEK Department: ED Room: [facility] Gender: M Mottler Operator: JEREMY : 1940 Requested By: BRYANNA GAFFNEY Order Number: [id number] Rupali MD: Bryanna Gaffney Measurements Intervals [place] Rate: 97 P: 53 NC: 201 QRS: 70 QRSD: 144 T: -10 QT: 389 QTc: 494 Interpretive Statements Normal sinus rhythm, heart rate of 97. No acute ST elevation. First-degree AV block. Electronically Signed On 10-24-2024 13:49:50 EST by Bryanna Gaffney [facility] Work Phone: Eosinophil count as percenta ge of total leukocytesOrdered By: KHALIF ZAYAS on 10-24-2024 Eosinophils/100 WBC (Unsp spec) Eosinophil count as percentage of total leukocytes 0.9-2.9 [facility] Erythrocyte distribution wid th standard deviationOrdered By: KHALIF ZAYAS on 10-24-2024 Erythrocyte distribution width (RBC) [Entitic vol] Erythrocyte distribution width standard deviation 11.5-14.5 [facility] Glomerular filtration rate ( GFR) estimation/1.73 sq m using serum, plasma, or whole bOrdered By: KHALIF ZAYAS on 10-24-2024 GFR/1.73 sq M.predicted among blacks CKD-EPI (S/P/Bld) [Vol rate/Area] Glomerular filtration rate (GFR) estimation/1.73 sq m using serum, plasma, or whole b Abnormal >60 [facility] Comment on above: Chronic Kidney Disea se less than 60 mL/min/1.73 [id number] Failure less than 15 mL/min/1.73 [id number] estimated GFR by age:70+ years 75 mL/min/1.73 m2 GFR/1.73 sq M.predicted among non-blacks CKD-EPI (S/P/Bld) [Vol rate/Area] Glomerular filtration rate (GFR) estimation/1.73 sq m using serum, plasma, or whole b Abnormal >60 [facility] Glucose Glucometer (BldC) [M ass/Vol]Ordered By: KHALIF ZAYAS on 10-24-2024 Glucose [Mass/Vol] Capillary blood gluc ose measurement by glucometer (mass/volume) 65-110 [facility] Hemoglobin A1con 10-24-2024 HbA1c (Bld) [Mass fraction] 6.4 % High 4.8-5.6 [facility] Comment on above: Result Comment: Pred iabetes: 5.7 - 6.4 Diabetes: >6.4 Glycemic control for adults with diabetes: <7.0 Performed at: [facility] [address] [id number] Field Support Technician: Ike Steward PhD, Phone: [phone] Performed By: #### B MP #### [place] [address] Lymphocytes/100 WBC Auto (Bl d)Ordered By: KHALIF ZAYAS on 10-24-2024 Lymphocytes/100 WBC (Bld) Automated blood lymphocyte count as percentage of total leukocytes 17.0-45.5 [facility] MCH Auto (RBC) [Entitic mass ]Ordered By: KHALIF ZAYAS on 10-24-2024 MCH (RBC) [Entitic mass] Automated erythrocyte mean corpuscular hemoglobin (MCH) measurement (mass/erythrocyte High 27.0-31.0 [facility] MCHC Auto (RBC) [Mass/Vol]Or dered By: KHALIF ZAYAS on 10-24-2024 MCHC (RBC) [Mass/Vol] Automated erythroc yte mean corpuscular hemoglobin concentration (MCHC) measurement (m Low 33.0-37.0 [facility] Monocytes Auto (Bld) [#/Vol] Ordered By: KHALIF ZAYAS on 10-24-2024 Monocytes (Bld) [#/Vol] Automated blood monocyte count (number/volume) 0.30-0.80 [facility] Monocytes/100 WBC Auto (Bld) Ordered By: KHALIF ZAYAS on 10-24-2024 Monocytes/100 WBC (Bld) Automated blood monocyte count as percentage of total leukocytes 5.5-11.7 [facility] Neutrophils Auto (Bld) [#/Vo l]Ordered By: KHALIF ZAYAS on 10-24-2024 Neutrophils (Bld) [#/Vol] Automated blood neutrophil count (number/volume) 2.20-4.80 [facility] Neutrophils seg % bldOrdered By: KHALIF ZAYAS on 10-24-2024 Segmented neutrophils/100 WBC (Bld) Neutrophils seg % bld 43.0-65.0 [facility] Platelets Auto (Bld) [#/Vol] Ordered By: KHALIF ZAYAS on 10-24-2024 Platelets (Bld) [#/Vol] Automated blood platelet count (number/volume) 148-402 [facility] Potassium (Bld) [Moles/Vol]O rdered By: KHALIF ZAYAS on 10-24-2024 Potassium [Moles/Vol] Potassium [Moles/v olume] in Blood 3.3-5.1 [facility] Protein total ser/plasOrdere d By: KHALIF ZAYAS on 10-24-2024 Protein [Mass/Vol] Blood total protein measurement 6.1-8.2 [facility] Serum globulin measurement ( mass/volume)Ordered By: KHALIF ZAYAS on 10-24-2024 Globulin (S) [Mass/Vol] Serum globulin measurement (mass/volume) 1.5-4.5 [facility] Serum or plasma alanine naidu otransferase (ALT) measurementOrdered By: KHALIF ZAYAS on 10-24-2024 ALT [Catalytic activity/Vol] ALT (SGPT) ser/plas 13-66 [facility] Serum or plasma albumin lyle urement by bromocresol purple (BCP) dye binding method (mOrdered By: KHALIF ZAYAS on 10-24-2024 Albumin BCP dye [Mass/Vol] Serum or plasma albumin measurement by bromocresol purple (BCP) dye binding method (m Low 3.4-5.0 [facility] Serum or plasma albumin/glob ulin mass ratioOrdered By: KHALIF ZAYAS on 10-24-2024 Albumin/Globulin [Mass ratio] Serum or plasma albumin/globulin mass ratio Low 1.1-2.5 [facility] Serum or plasma alkaline seda sphatase measurement (enzymatic activity/volume)Ordered By: KHALIF ZAYAS on 10-24-2024 ALP [Catalytic activity/Vol] Serum or plasma alkaline phosphatase measurement (enzymatic activity/volume) Low 54-112 [facility] Serum or plasma anion gapOrd ered By: KHALIF ZAYAS on 10-24-2024 Anion gap [Moles/Vol] Serum or plasma anion gap 8.0-16.0 [facility] Serum or plasma aspartate am inotransferase measurement with P-5'-P (enzymatic activitOrdered By: KHALIF ZAYAS on 10-24-2024 AST With P-5'-P [Catalytic activity/Vol] Serum or plasma aspartate aminotransferase measurement with P-5'-P (enzymatic activit 3-39 [facility] Serum or plasma bilirubin me asurement (mass/volume)Ordered By: KHALIF ZAYAS on 10-24-2024 Bilirubin [Mass/Vol] Serum or plasma iesha irubin measurement (mass/volume) 0.00-0.99 [facility] Serum or plasma carbon dioxi de measurement (moles/volume)Ordered By: KHALIF ZAYAS on 10-24-2024 CO2 [Moles/Vol] Serum or plasma carb on dioxide measurement (moles/volume) 21-34 [facility] Serum or plasma chloride eryn surement (moles/volume)Ordered By: KHALIF ZAYAS on 10-24-2024 Chloride [Moles/Vol] Serum or plasma chl oride measurement (moles/volume) 94-110 [facility] Serum or plasma creatinine m easurement (mass/volume)Ordered By: KHALIF ZAYAS on 10-24-2024 Creatinine [Mass/Vol] Serum or plasma creatinine measurement (mass/volume) High 0.50-1.17 [facility] Serum or plasma glucose lyle urement (mass/volume)Ordered By: KHALIF ZAYAS on 10-24-2024 Glucose [Mass/Vol] Serum or plasma gluc ose measurement (mass/volume) High 65-100 [facility] Serum or plasma sodium measu rement (moles/volume)Ordered By: KHALIF ZAYAS on 10-24-2024 Sodium [Moles/Vol] Serum or plasma sodi um measurement (moles/volume) 132-145 [facility] Serum or plasma urea nitroge n measurement (mass/volume)Ordered By: KHALIF ZAYAS on 10-24-2024 Urea nitrogen [Mass/Vol] Serum or plasma urea nitrogen measurement (mass/volume) 3.2-26.9 [facility] Serum or plasma urea nitroge n/creatinine mass ratioOrdered By: KHALIF ZAYAS on 10-24-2024 Urea nitrogen/Creatinine [Mass ratio] Serum or plasma urea nitrogen/creatinine mass ratio 6-20 [facility] Whole blood hemoglobin measu rement (mass/volume)Ordered By: KHALIF ZAYAS on 10-24-2024 Hemoglobin (Bld) [Mass/Vol] Whole blood hemoglobin measurement (mass/volume) Low 12.4-17.3 [facility] Bedside Glucose (Point of Ca re)on 10-23-2024 Glucose [Mass/Vol] 141 mg/dL Normal 65-110 [facility] Comment on above: Performed By: #### P T #### [address] [address] Glucose [Mass/Vol] 127 mg/dL Normal 65-110 [facility] Comment on above: Performed By: #### M G #### [address] [address] Glucose [Mass/Vol] 146 mg/dL Normal 65-110 [facility] Comment on above: Performed By: #### C BCS #### [address] [address] CBC w/Auto Differentialon Basophils Abs. # 0.03 K/uL Normal 0.00-0.10 [facility] Comment on above: Performed By: #### B MP #### [address] [address] Basophils/100 WBC (Bld) 0.5 % Normal 0.2-1.0 [facility] Comment on above: Performed By: #### B MP #### [address] [address] Eosinophils (Bld) [#/Vol] 0.20 10*3/uL Normal 0.00-0.20 [facility] Comment on above: Performed By: #### B MP #### [address] [place] [address] Eosinophils/100 WBC (Bld) 3.6 % High 0.9-2.9 [facility] Comment on above: Performed By: #### B MP #### [address] [place] [address] Erythrocyte distribution width (RBC) [Ratio] 13.7 % Normal 11.5-14.5 [facility] Comment on above: Performed By: #### B MP #### [address] [address] Hematocrit (Bld) [Volume fraction] 35.3 % Low 36.7-50.6 [facility] Comment on above: Performed By: #### B MP #### [address] [address] Hemoglobin (Bld) [Mass/Vol] 11.4 g/dL Low 12.4-17.3 [facility] Comment on above: Performed By: #### B MP #### [address] [place] [address] Imm Grans % 0.20 % Normal 0.00-1.00 [facility] Comment on above: Performed By: #### B MP #### [address] [place] [address] Imm Grans Absolute # 0.01 K/uL Normal 0.00-0.10 [facility] Comment on above: Performed By: #### B MP #### [address] [place] [address] Lymphocytes (Bld) [#/Vol] 2.00 10*3/uL Normal 1.30-2.90 [facility] Comment on above: Performed By: #### B MP #### [address] [place] [address] Lymphocytes/100 WBC (Bld) 31.1 % Normal 17.0-45.5 [facility] Comment on above: Performed By: #### B MP #### [address] [address] MCH (RBC) [Entitic mass] 31.6 pg High 27.0-31.0 [facility] Comment on above: Performed By: #### B MP #### [address] [address] MCHC (RBC) [Mass/Vol] 32.3 g/dL Low 33.0-37.[address] [facility] Comment on above: Performed By: #### B MP #### [address] [place] [address] MCV (RBC) [Entitic vol] 97.8 fL High 80.0-94.0 [facility] Comment on above: Performed By: #### B MP #### [address] [place] [address] Monocytes (Bld) [#/Vol] 0.50 10*3/uL Normal 0.30-0.80 [facility] Comment on above: Performed By: #### B MP #### [address] [place] [address] Monocytes/100 WBC (Bld) 8.1 % Normal 5.5-11.7 [facility] Comment on above: Performed By: #### B MP #### [place] [id number] Neutrophils Abs. # 3.58 K/uL Normal 2.20-4.80 [facility] Comment on above: Performed By: #### B MP #### [facility] [address] [place] [address] Neutrophils/100 WBC (Bld) 56.5 % Normal 43.0-65.0 [facility] Comment on above: Performed By: #### B MP #### [address] [place] [address] Platelet mean volume (Bld) [Entitic vol] 9.3 fL Normal 7.4-10.4 [facility] Comment on above: Performed By: #### B MP #### [address] [place] [address] Platelets (Bld) [#/Vol] 258 10*3/uL Normal 148-402 [facility] Comment on above: Performed By: #### B MP #### [address] [place] [address] RBC (Bld) [#/Vol] 3.61 10*6/uL Low 4.13-5.69 [facility] Comment on above: Performed By: #### B MP #### [address] [place] [address] WBC (Bld) [#/Vol] 6.3 10*3/uL Normal 3.6-10.8 [facility] Comment on above: Performed By: #### B MP #### [address] [place] [address] Comprehensive Metabolic Pane sánchez 10-23-2024 Albumin [Mass/Vol] 2.8 g/dL Low 3.4-5.0 [facility] Comment on above: Performed By: #### M G #### [facility] [address] [place] [address] Albumin/Globulin [Mass ratio] 0.9 {ratio} Low 1.1-2.5 [facility] Comment on above: Performed By: #### M G #### [facility] [address] [place] [address] ALP [Catalytic activity/Vol] 41 U/L Low 54-112 [facility] Comment on above: Performed By: #### M G #### [facility] [address] [place] [address] ALT [Catalytic activity/Vol] 24 U/L Normal 13-66 [facility] Comment on above: Performed By: #### M G #### [address] [place] [address] Anion gap [Moles/Vol] 9.1 mmol/L Normal 8.0-16.[address] [facility] Comment on above: Performed By: #### M G #### [facility] [address] [place] [address] AST [Catalytic activity/Vol] 29 U/L Normal 3-39 [facility] Comment on above: Performed By: #### M G #### [facility] [address] [place] [address] Bilirubin [Mass/Vol] 0.37 mg/dL Normal 0.00-0.99 [facility] Comment on above: Performed By: #### M G #### [facility] [address] [place] [address] Calcium [Mass/Vol] 8.4 mg/dL Normal 8.2-10.0 [facility] Comment on above: Performed By: #### M G #### [facility] [address] [place] [address] Chloride [Moles/Vol] 108 mmol/L Normal 94-110 [facility] Comment on above: Performed By: #### M G #### [facility] [address] [place] [address] CO2 [Moles/Vol] 30 mmol/L Normal 21-34 [facility] Comment on above: Performed By: #### M G #### [facility] [address] [place] [address] Creatinine [Mass/Vol] 1.62 mg/dL High 0.50-1.[address] [facility] Comment on above: Performed By: #### M G #### [facility] [address] [place] [address] EGFR Other Races 41 Abnormal >60 [facility] Comment on above: Performed By: #### M G #### [facility] [address] [place] [address] GFR/1.73 sq M.predicted among blacks MDRD (S/P/Bld) [Vol rate/Area] 50 mL/min/{1.73_m2} Abnormal >60 [facility] Comment on above: Result Comment: [employer] Agent andree Kidney Disease less than 60 mL/min/1.73 m2 Kidney Failure less than 15 mL/min/1.73 m2 Average estimated GFR by age: 70+ years 75 mL/min/1.73 m2 Performed By: #### M G #### [facility] [address] [place] [address] Globulin (S) [Mass/Vol] 3.2 g/dL Normal 1.5-4.5 [facility] Comment on above: Performed By: #### M G #### [facility] [address] [place] [address] Glucose [Mass/Vol] 108 mg/dL High 65-100 [facility] Comment on above: Performed By: #### M G #### [facility] [address] [place] [address] Potassium [Moles/Vol] 4.1 mmol/L Normal 3.3-5.[address] [facility] Comment on above: Performed By: #### M G #### [facility] [address] [place] [address] Protein [Mass/Vol] 6.0 g/dL Low 6.1-8.2 [facility] Comment on above: Performed By: #### M G #### [facility] [address] [place] [address] Sodium [Moles/Vol] 143 mmol/L Normal 132-145 [facility] Comment on above: Performed By: #### M G #### [facility] [address] [place] [address] Urea nitrogen [Mass/Vol] 23.1 mg/dL Normal 3.2-26.9 [facility] Comment on above: Performed By: #### M G #### [address] [place] [address] Urea nitrogen/Creatinine [Mass ratio] 14 mg/mg Normal 6-20 [facility] Comment on above: Performed By: #### M G #### [facility] [address] [place] [address] EMERGENCY DEPARTMENTon 10-23 EMERGENCY DEPARTMENT [address] [address] HEALTH INFORMATION MANAGEMENT EMERGENCY DEPARTMENT : [id number] Signed Patient: WILEY MEEK Acct:[id number] MRUN: [id number] : 1940 Sex: M Loc: ICU ADM Date: Room/Bed: 354-A DISC Date: _ History of Present Illness - General Chief Complaint: Altered Mental Status Stated Complaint: CONFUSION Symptom onset: TODAY HPI: PT ARRIVES TO THE ED WITH C/O CONFUSION THAT STARTED TODAY. PT DENIES ANY COMPLAINTS ON ARRIVAL TO ED. PT STATES I GUESS IM HERE TO GET CHECKED OUT. PT FROM [facility] PT HAS INCREASED CONFUSION. Time Seen by Provider: 10/22/24 15:14 Source: Patient, EMS, RN notes reviewed Mode of Transport: Squad-[facility] - History of Present Illness Initial Comments: Patient is an 84-year-old male history of dementia, diabetes, chronic kidney disease brought into emergency department for evaluation of worsening confusion. Patient denies any chest pain or abdominal pain. No nausea no vomiting. History was also obtained from EMS staff nursing staff. Complaint: Complains of: altered mental status - Related Data Home Medications Medication Instructions Recorded Confirmed Fenofibrate Nanocrystallized 145 mg PO DAILY 12/08/17 10/22/24 [Fenofibrate] Finasteride 5 mg PO DAILY 12/08/17 10/22/24 Aspirin [Aspirin 81 mg Chew Tablet] 81 mg PO DAILY 10/13/20 10/22/24 Donepezil HCl [Aricept 5 mg Tablet] 5 mg PO QPM 10/13/20 10/22/24 Tamsulosin HCl [Flomax 0.4 mg 0.4 mg PO QPM 10/13/20 10/22/24 Capsule] Divalproex Sodium [Depakote] 125 mg PO BID 08/11/21 10/22/24 Loperamide HCl [Loperamide] 2 mg PO Q6H PRN 08/11/21 10/22/24 Acetaminophen [Acetaminophen Extra 500 mg PO BID 06/01/23 10/22/24 Strength] Cimetidine 400 mg PO BID 06/01/23 10/22/24 Dexlansoprazole [Dexilant] 60 mg PO DAILY 06/01/23 10/22/24 Hydralazine HCl 25 mg PO TID 30 Days #90 tablet 06/02/23 10/22/24 Menthol [Biofreeze] 89 ml TP QID PRN 12/22/23 10/22/24 Cholecalciferol (Vitamin D3) 2,000 unit PO DAILY 10/22/24 10/22/24 [Vitamin D3 1000 Unit Tablet] Cyanocobalamin (Vitamin B-12) 500 mcg PO DAILY 10/22/24 10/22/24 [Vitamin B-12 500 Mcg Tablet] Lactobacillus Acidophilus 100 mg PO DAILY 10/22/24 10/22/24 [Acidophilus] Pravastatin Sodium 10 mg PO 10/23/24 Allergies Allergy/AdvReac Type Severity Reaction Status Date / Time morphine Allergy Verified 10/22/24 18:11 Sulfa (Sulfonamide Allergy Verified 10/22/24 18:11 Antibiotics) Review of System - Constitutional Constitutional: Present: Well developed, Well nourished, Non-toxic - Respiratory Respiratory: Present: no symptoms reported. Absent: stridor - All Others/Exceptions Unable To Obtain Complete ROS: AMS ED PMH/Social HX/Family HX - Respiratory Hx Respiratory Disorders: Yes (reviewed ) PMH--Respiratory: Asthma, Bronchitis - Cardiovascular Hx Cardiac Disorders: Yes PMH--Cardiovascular: HTN, Hypercholesterolemia - Neurological Hx Neurological Disorder: Yes PMH--Neurological: Dementia, Memory Loss - Endocrine Hx Endocrine Disorders: Yes PMH--Endocrine History: Diabetes Type 2 - Gastrointestinal Hx Gastrointestinal Disorders: Yes PMH--Gastrointestinal: GERD, Hernia Other GI PMH: heart burn Past Surgical Hx--GI: Appendectomy - Genitourinary Hx Genitourinary Disorders: Yes PMH--Genitourinary: UTI - Musculoskeletal Hx Musculoskeletal Disorders: No PMH--Musculoskeletal: Arthritis - Reproductive Hx Reproductive Disorders: No - Psychological Hx Psychosocial Problems: Yes PMH--Psychological Treatments: Depression - HEENT Hx Ear, Nose Throat Disorders: Yes PMH--Ears Nose and Throat: Cataracts, Farsighted Past Surgical Hx-ENT: Cataract Removal-Right, Cataract Removal-Left - Cancer Hx Cancer: No - Other Other PMH: Chicken Pox, Measles, Mumps - Social History Highest Educational Level: High School Able to Read: Yes Able to Write: Yes Smoking Status: Never Smoked Hx Chewing Tobacco Use: No Alcohol Use: Never Any recreational drug use reported?: No Hx Substance Use Treatment: No Feels Threatened In Home Environment: No Feels Threatened In a Relationship: No - Family PMH Father Living Status: Cardiac: Cardiac Disorder(s), Myocardial Infarction Mother Living Status: Cancer History: Breast Cancer - Sweet/Gender ID What is your current Gender Identity? Choose all that Apply: Male Define your Sexual Orientation?: Straight/Heterosexual - Crane-Suicide Severity Rating Scale 1) Wish to be :: No 2) Suicidal Thoughts:: No 6) Suicidal Behavior Question (A): LIFETIME: No 6) Suicidal Behavior Question (B): PAST 3 MO (more content not included)... Normal [facility] Magnesiumon 10-23-2024 Magnesium [Mass/Vol] 1.9 mg/dL Normal 1.3-2.3 [facility] Comment on above: Performed By: #### M G #### [address] [id number] Phosphoruson 10-23-2024 Phosphate [Mass/Vol] 2.8 mg/dL Normal 2.5-4.9 [facility] Comment on above: Performed By: #### B MP #### [address] [address] Serum or plasma magnesium me asurement (mass/volume)Ordered By: INDIGO DOCKERY on 10-23-2024 Magnesium [Mass/Vol] Serum or plasma mag nesium measurement (mass/volume) 1.3-2.3 [facility] Serum or plasma phosphate me asurement (mass/volume)Ordered By: INDIGO DOCKERY on 10-23-2024 Phosphate [Mass/Vol] Serum or plasma seda sphate measurement (mass/volume) 2.5-4.9 [facility] Activated partial thrombopla stin time (aPTT) in platelet poor plasma by coagulation aOrdered By: BRYANNA GAFFNEY on 10-22-2024 aPTT Coag (PPP) [Time] PTT PPP 19.5-32.1 [facility] Comment on above: New Reference Ranges effective 2018. Ammoniaon 10-22-2024 Ammonia (P) [Moles/Vol] 25 umol/L Normal 11-35 [facility] Comment on above: Performed By: #### C BCS #### [address] [address] Bedside Glucose (Point of Ca re)on 10-22-2024 Glucose [Mass/Vol] 110 mg/dL Normal 65-110 [facility] Comment on above: Performed By: #### M G #### [address] [id number] C-Reactive Protein, Qnon C-Reactive Protein, Qn <1 Normal 0-10 [facility] Comment on above: Result Comment: Perf ormed at: CB - [facility] [address] [place], [place] [id number] Field Support Technician: Ike Steward PhD, Phone: [phone] Performed By: #### 3 TSH #### [address] [id number] CBC w/Auto Differentialon Basophils Abs. # 0.03 K/uL Normal 0.00-0.10 [facility] Comment on above: Performed By: #### M G #### [address] [address] Basophils/100 WBC (Bld) 0.5 % Normal 0.2-1.0 [facility] Comment on above: Performed By: #### M G #### [address] [id number] Eosinophils (Bld) [#/Vol] 0.10 10*3/uL Normal 0.00-0.20 [facility] Comment on above: Performed By: #### M G #### [facility] [address] [place] [address] Eosinophils/100 WBC (Bld) 1.7 % Normal 0.9-2.9 [facility] Comment on above: Performed By: #### M G #### [address] [place] [address] Erythrocyte distribution width (RBC) [Ratio] 13.5 % Normal 11.5-14.5 [facility] Comment on above: Performed By: #### M G #### [address] [address] Hematocrit (Bld) [Volume fraction] 38.6 % Normal 36.7-50.6 [facility] Comment on above: Performed By: #### M G #### [address] [place] [address] Hemoglobin (Bld) [Mass/Vol] 12.4 g/dL Normal 12.4-17.3 [facility] Comment on above: Performed By: #### M G #### [address] [place] [address] Imm Grans % 0.20 % Normal 0.00-1.00 [facility] Comment on above: Performed By: #### M G #### [address] [place] [address] Imm Grans Absolute # 0.01 K/uL Normal 0.00-0.10 [facility] Comment on above: Performed By: #### M G #### [address] [place] [address] Lymphocytes (Bld) [#/Vol] 2.10 10*3/uL Normal 1.30-2.90 [facility] Comment on above: Performed By: #### M G #### [address] [place] [address] Lymphocytes/100 WBC (Bld) 31.1 % Normal 17.0-45.5 [facility] Comment on above: Performed By: #### M G #### [address] [place] [address] MCH (RBC) [Entitic mass] 31.6 pg High 27.0-31.0 [facility] Comment on above: Performed By: #### M G #### [address] [address] MCHC (RBC) [Mass/Vol] 32.1 g/dL Low 33.0-37.[address] [facility] Comment on above: Performed By: #### M G #### [address] [place] [address] MCV (RBC) [Entitic vol] 98.2 fL High 80.0-94.0 [facility] Comment on above: Performed By: #### M G #### [address] [place] [address] Monocytes (Bld) [#/Vol] 0.50 10*3/uL Normal 0.30-0.80 [facility] Comment on above: Performed By: #### M G #### [address] [place] [id number] Monocytes/100 WBC (Bld) 7.2 % Normal 5.5-11.7 [facility] Comment on above: Performed By: #### M G #### [address] [id number] Neutrophils Abs. # 3.96 K/uL Normal 2.20-4.80 [facility] Comment on above: Performed By: #### M G #### [facility] [address] [place] [address] Neutrophils/100 WBC (Bld) 59.3 % Normal 43.0-65.0 [facility] Comment on above: Performed By: #### M G #### [address] [place] [address] Platelet mean volume (Bld) [Entitic vol] 9.0 fL Normal 7.4-10.4 [facility] Comment on above: Performed By: #### M G #### [address] [place] [address] Platelets (Bld) [#/Vol] 296 10*3/uL Normal 148-402 [facility] Comment on above: Performed By: #### M G #### [facility] [address] [place] [address] RBC (Bld) [#/Vol] 3.93 10*6/uL Low 4.13-5.69 [facility] Comment on above: Performed By: #### M G #### [address] [place] [address] WBC (Bld) [#/Vol] 6.7 10*3/uL Normal 3.6-10.8 [facility] Comment on above: Performed By: #### M G #### [address] [place] [address] CBLDon 10-22-2024 CBLD Patient: Zeina MEEK MRUN [id number] Location: [facility] INT Aount: [id number] : 1940 Age: 84 Sex M Lab NumbEr [id number] Requested by: BRYANNA GAFFNEY Admitdate: 10/22/24 Source: BLOOD Collected: 10/22/24 15:32 Site: [facility] Received : 10/22/24 21:24 AVIVA C O M M E N T S LAB.PORT; Does the Patient have a central line to draw blood from?; N; [email or web address]; Ruben Site; blood Culture, Blood FINAL 10/27/24 10:51 10/24/24 No growth after 48 hours incubation in aerobic and anaerobic bottle. 10/24/2024 06:15 10/27/24 No growth after 5 days incubation in aerobic and anaerobic bottle. 10/27/2024 10:51 Normal [facility] Comment on above: Performed By: #### B MP #### [place] [address] CBLD Patient: Zeina MEEK [id number] Location: [facility] Aount: [id number] : 1940 Age: 84 Sex M Lab NumbEr [id number] Requested by: BRYANNA GAFFNEY Admitdate: 10/22/24 Source: BLOOD Collected: 10/22/24 15:30 Site: [facility] Received : 10/22/24 21:23 AVIVA C O M M E N T S LAB.PORT; Does the Patient have a central line to draw blood from?; N; [email or web address]; Ruben Site; blood Culture, Blood FINAL 10/27/24 10:51 10/24/24 No growth after 48 hours incubation in aerobic and anaerobic bottle. 10/24/2024 06:15 10/27/24 No growth after 5 days incubation in aerobic and anaerobic bottle. 10/27/2024 10:51 [facility] Comment on above: Performed By: #### B MP #### [facility] [address] [place] [address] CHEST APon 10-22-2024 CHEST AP EXAMINATION: ONE XRAY VIEW OF THE CHEST 10/22/2024 3:43 pm COMPARISON: Portable chest from 12/22/2023. CT of the abdomen and pelvis from 09/01/2022. HISTORY: ORDERING SYSTEM PROVIDED HISTORY: Sepsis FINDINGS: There is no change in the massive hiatal hernia located within the left lower chest. There is increased moderate linear atelectasis of the left lower lobe and infrahilar region adjacent to the hiatal hernia. The rest of the chest remains clear. The lungs remain clear. There is no sign of any infiltrate or effusion. The heart remains normal in size. The mediastinum is normal in appearance. The osseous structures are normal in appearance for the patient's age. IMPRESSION: 1. No change in the massive hiatal hernia located within the left lower chest. 2. Increased moderate linear atelectasis of the left lower lobe and infrahilar region adjacent to the hiatal hernia. Normal [facility] CT BRAIN WOon 10-22-2024 CT BRAIN WO EXAMINATION: CT OF THE HEAD WITHOUT CONTRAST 10/22/2024 4:01 pm TECHNIQUE: CT of the head was performed without the administration of intravenous contrast. Automated exposure control, iterative reconstruction, and/or weight based adjustment of the mA/kV was utilized to reduce the radiation dose to as low as reasonably achievable. COMPARISON: 05/25/2024 HISTORY: ORDERING SYSTEM PROVIDED HISTORY: altered mental status FINDINGS: BRAIN/VENTRICLES: There is no acute intracranial hemorrhage, mass effect or midline shift. No abnormal extra-axial fluid collection. The connolly-white differentiation is maintained without evidence of an acute infarct. There is no evidence of hydrocephalus. Periventricular white matter changes consistent chronic microvascular disease. Diffuse volume loss. ORBITS: The visualized portion of the orbits demonstrate no acute abnormality. SINUSES: The visualized paranasal sinuses and mastoid air cells demonstrate no acute abnormality. SOFT TISSUES/SKULL: No acute abnormality of the visualized skull or soft tissues. IMPRESSION: 1. No acute intracranial abnormality. 2. Periventricular white matter changes consistent with chronic microvascular disease. 3. Diffuse volume loss. Normal [facility] Comprehensive Metabolic Pane sánchez 10-22-2024 Albumin [Mass/Vol] 3.1 g/dL Low 3.4-5.0 [facility] Comment on above: Performed By: #### B MP #### [facility] [address] [place] [address] Albumin/Globulin [Mass ratio] 0.9 {ratio} Low 1.1-2.5 [facility] Comment on above: Performed By: #### B MP #### [facility] [address] [place] [address] ALP [Catalytic activity/Vol] 46 U/L Low 54-112 [facility] Comment on above: Performed By: #### B MP #### [facility] [address] [place] [address] ALT [Catalytic activity/Vol] 30 U/L Normal 13-66 [facility] Comment on above: Performed By: #### B MP #### [facility] [address] [place] [address] Anion gap [Moles/Vol] 11.6 mmol/L Normal 8.0-16.0 [facility] Comment on above: Performed By: #### B MP #### [facility] [address] [place] [address] AST [Catalytic activity/Vol] 32 U/L Normal 3-39 [facility] Comment on above: Performed By: #### B MP #### [facility] [address] [place] [address] Bilirubin [Mass/Vol] 0.41 mg/dL Normal 0.00-0.99 [facility] Comment on above: Performed By: #### B MP #### [facility] [address] [place] [address] Calcium [Mass/Vol] 8.5 mg/dL Normal 8.2-10.0 [facility] Comment on above: Performed By: #### B MP #### [facility] [address] [place] [address] Chloride [Moles/Vol] 106 mmol/L Normal 94-110 [facility] Comment on above: Performed By: #### B MP #### [facility] [address] [place] [address] CO2 [Moles/Vol] 29 mmol/L Normal 21-34 [facility] Comment on above: Performed By: #### B MP #### [address] [place] [address] Creatinine [Mass/Vol] 1.84 mg/dL High 0.50-1.[address] [facility] Comment on above: Performed By: #### B MP #### [address] [place] [address] EGFR Other Races 35 Abnormal >60 [facility] Comment on above: Performed By: #### B MP #### [address] [place] [address] GFR/1.73 sq M.predicted among blacks MDRD (S/P/Bld) [Vol rate/Area] 43 mL/min/{1.73_m2} Abnormal >60 [facility] Comment on above: Result Comment: [employer] Agent andree Kidney Disease less than 60 mL/min/1.73 m2 Kidney Failure less than 15 mL/min/1.73 m2 Average estimated GFR by age: 70+ years 75 mL/min/1.73 m2 Performed By: #### B MP #### [facility] [address] [place] [address] Globulin (S) [Mass/Vol] 3.4 g/dL Normal 1.5-4.5 [facility] Comment on above: Performed By: #### B MP #### [facility] [address] [place] [address] Glucose [Mass/Vol] 166 mg/dL High 65-100 [facility] Comment on above: Performed By: #### B MP #### [address] [place] [address] Potassium [Moles/Vol] 4.6 mmol/L Normal 3.3-5.[address] [facility] Comment on above: Performed By: #### B MP #### [address] [place] [address] Protein [Mass/Vol] 6.5 g/dL Normal 6.1-8.2 [facility] Comment on above: Performed By: #### B MP #### [address] [address] Sodium [Moles/Vol] 142 mmol/L Normal 132-145 [facility] Comment on above: Performed By: #### B MP #### [address] [address] Urea nitrogen [Mass/Vol] 28.9 mg/dL High 3.2-26.9 [facility] Comment on above: Performed By: #### B MP #### [address] [place] [address] Urea nitrogen/Creatinine [Mass ratio] 16 mg/mg Normal 6-20 [facility] Comment on above: Performed By: #### B MP #### [facility] [address] [place] [address] Erythrocyte sedimentation ra te by 15 minute readingOrdered By: KHALIF ZAYAS on 01-07-2025 ESR 15 minute reading (Bld) [Velocity] Erythrocyte sedimentation rate by 15 minute reading High 0-10 [facility] Fibrinogenon 10-22-2024 Fibrinogen 234 mg/dL Normal 178-460 [facility] Comment on above: Result Comment: New Reference Ranges effective 2018. Performed By: #### 3 TSH #### [facility] [address] [place] [address] Fibrinogen measurement in pl atelet poor plasma by coagulation assay (mass/volume)Ordered By: BRYANNA GAFFNEY on 10-22-2024 Fibrinogen Coag (PPP) [Mass/Vol] Fibrinogen measurement in platelet poor plasma by coagulation assay (mass/volume) 178-460 [facility] Comment on above: New Reference Ranges effective 2018. Folate (Folic Acid)on 2024 Folate (Folic Acid) 12.8 ng/mL Normal >3.0 [facility] Comment on above: Result Comment: A se rum folate concentration of less than 3.1 ng/mL is considered to represent clinical deficiency. Performed at: - [facility] [id number] Field Support Technician: Ike Steward PhD, Phone: [phone] Performed By: #### B MP #### [address] [place] [address] High Sensitivity TNIon 10-22 Abs Change hsTnI 1 ng/L Normal [facility] Comment on above: Performed By: #### C BCS #### [facility] [address] [place], [place] [id number] Delta % hsTnI 9 % Normal [facility] Comment on above: Performed By: #### C BCS #### [facility] [address] [place] [address] High Sensitivity TNI 11 ng/L Normal 0-76 [facility] Comment on above: Result Comment: Inte rpretation comment: High-sensitivity troponin I (hsTnI) assay can reliably detect low troponin concentrations relative to conventional troponin assays. It is the preferred marker of myocardial necrosis as recommended by the Fourth [place] Definition of Myocardial Infarction Guidelines. The diagnosis of acute myocardial infarction (AMI) is made based on a rise or fall of troponin with at least one measurement exceeding the laboratory's upper limit of normal (indicating myocardial injury), in the context of reasonable suspicion for coronary ischemia (e.g. typical symptoms, changes on ECG, evidence for loss of myocardial infarction or demonstration of obstructive coronary artery disease). Note: Although abnormal hsTnI values reflect injury to myocardial cells, an elevated hsTnI does not indicate the cause of injury (i.e. ischemia versus non-ischemic disease). In some cases, myocardial injury is chronic and relatively stable such that hsTnI values remain elevated but do not change substantially over hours to days (examples include chronic kidney disease, heart failure or advanced patient age). When determining whether there has been a significant rise or fall of troponin on serial sampling, absolute change in troponin concentration has greater diagnostic accuracy for AMI then relative change criteria. A change of >7 ng/L over a 2-hour interval or a change of >10 ng/L over a 3-hour interval is suggested as a significant change. If the initial hsTnI is below or at the 99th percentile upper reference limit, a 50% change from the baseline is considered significant. If the initial hsTnI is above the 99th percentile upper reference limit, a 20% change from the baseline value is considered significant. Performed By: #### C BCS #### [facility] [address] [place] [address] Abs Change hsTnI 3 ng/L Normal [facility] Comment on above: Performed By: #### 3 TSH #### [facility] [address] [place], [place] [id number] Delta % hsTnI 30 % Normal [facility] Comment on above: Performed By: #### 3 TSH #### [facility] [address] [place] [address] High Sensitivity TNI 10 ng/L Normal 0-76 [facility] Comment on above: Result Comment: Inte rpretation comment: High-sensitivity troponin I (hsTnI) assay can reliably detect low troponin concentrations relative to conventional troponin assays. It is the preferred marker of myocardial necrosis as recommended by the Fourth [place] Definition of Myocardial Infarction Guidelines. The diagnosis of acute myocardial infarction (AMI) is made based on a rise or fall of troponin with at least one measurement exceeding the laboratory's upper limit of normal (indicating myocardial injury), in the context of reasonable suspicion for coronary ischemia (e.g. typical symptoms, changes on ECG, evidence for loss of myocardial infarction or demonstration of obstructive coronary artery disease). Note: Although abnormal hsTnI values reflect injury to myocardial cells, an elevated hsTnI does not indicate the cause of injury (i.e. ischemia versus non-ischemic disease). In some cases, myocardial injury is chronic and relatively stable such that hsTnI values remain elevated but do not change substantially over hours to days (examples include chronic kidney disease, heart failure or advanced patient age). When determining whether there has been a significant rise or fall of troponin on serial sampling, absolute change in troponin concentration has greater diagnostic accuracy for AMI then relative change criteria. A change of >7 ng/L over a 2-hour interval or a change of >10 ng/L over a 3-hour interval is suggested as a significant change. If the initial hsTnI is below or at the 99th percentile upper reference limit, a 50% change from the baseline is considered significant. If the initial hsTnI is above the 99th percentile upper reference limit, a 20% change from the baseline value is considered significant. Performed By: #### 3 TSH #### [address] [address] High Sensitivity TNI 7 ng/L Normal 0-76 [facility] Comment on above: Result Comment: Inte rpretation comment: High-sensitivity troponin I (hsTnI) assay can reliably detect low troponin concentrations relative to conventional troponin assays. It is the preferred marker of myocardial necrosis as recommended by the Fourth [place] Definition of Myocardial Infarction Guidelines. The diagnosis of acute myocardial infarction (AMI) is made based on a rise or fall of troponin with at least one measurement exceeding the laboratory's upper limit of normal (indicating myocardial injury), in the context of reasonable suspicion for coronary ischemia (e.g. typical symptoms, changes on ECG, evidence for loss of myocardial infarction or demonstration of obstructive coronary artery disease). Note: Although abnormal hsTnI values reflect injury to myocardial cells, an elevated hsTnI does not indicate the cause of injury (i.e. ischemia versus non-ischemic disease). In some cases, myocardial injury is chronic and relatively stable such that hsTnI values remain elevated but do not change substantially over hours to days (examples include chronic kidney disease, heart failure or advanced patient age). When determining whether there has been a significant rise or fall of troponin on serial sampling, absolute change in troponin concentration has greater diagnostic accuracy for AMI then relative change criteria. A change of >7 ng/L over a 2-hour interval or a change of >10 ng/L over a 3-hour interval is suggested as a significant change. If the initial hsTnI is below or at the 99th percentile upper reference limit, a 50% change from the baseline is considered significant. If the initial hsTnI is above the 99th percentile upper reference limit, a 20% change from the baseline value is considered significant. Performed By: #### C MP #### [place] [address] INR in Platelet poor plasma by Coagulation assayOrdered By: BRYANNA GAFFNEY on 10-22-2024 INR Coag (PPP) [Relative time] Platelet poor plasma international normalized ratio (INR) [facility] Comment on above: 2.0 - 3.0 Group A2.5 - 3.5 Group BGroup A indications: Prophylaxis and treatment of venousthrombosis. Treatment of pulmonary embolism. Prevention ofsystemic embolism. Tissue heart valves. Acute myocardialinfarction. Valvular heart disease. Atrial fibrillation.Group B indications: Mechanical prosthetic valves. . Interpretation of serum or p lasma cardiac troponin I measurement by high sensitivityOrdered By: KHALIF ZAYAS on 10-22-2024 Troponin I.cardiac High sensitivity method Ql [Interp] Interpretation of serum or plasma cardiac troponin I measurement by high sensitivity 0-76 [facility] Comment on above: Interpretation comme nt:High-sensitivity troponin I (hsTnI) assay can reliably detect low troponinconcentrations relative to conventional troponin assays. It is thepreferred marker of myocardial necrosis as recommended by the FourthUniversal Definition of Myocardial Infarction Guidelines.The diagnosis of acute myocardial infarction (AMI) is made based on a riseor fall of troponin with at least one measurement exceeding the laboratory'supper limit of normal (indicating myocardial injury), in the context ofreasonable suspicion for coronary ischemia (e.g. typical symptoms, changeson ECG, evidence for loss of myocardial infarction or demonstration ofobstructive coronary artery disease).Note: Although abnormal hsTnI values reflect injury to myocardial cells, anelevated hsTnI does not indicate the cause of injury (i.e. ischemia versusnon-ischemic disease).In some cases, myocardial injury is chronic and relatively stable such thathsTnI values remain elevated but do not change substantially over hours todays (examples include chronic kidney disease, heart failure or advancedpatient age).When determining whether there has been a significant rise or fall oftroponin on serial sampling, absolute change in troponin concentration hasgreater diagnostic accuracy for AMI then relative change criteria. A changeof >7 ng/L over a 2-hour interval or a change of >10 ng/L over a 3-hourinterval is suggested as a significant change. If the initial hsTnI isbelow or at the 99th percentile upper reference limit, a 50% change from thebaseline is considered significant. If the initial hsTnI is above the 99thpercentile upper reference limit, a 20% change from the baseline value isconsidered significant. Ketones Test strip Ql (U)Ord ered By: BRYANNA GAFFNEY on 10-22-2024 Ketones Ql (U) Urine ketones detect ion by test strip Negative [facility] Lactic Acid (Venous)on 10-22 Lactate [Moles/Vol] 0.9 mmol/L Normal 0.4-2.0 [facility] Comment on above: Result Comment: Trev garcia note change in normal range Performed By: #### C MP #### [facility] [address] [place] [address] Lactate [Moles/Vol] 1.6 mmol/L Normal 0.4-2.0 [facility] Comment on above: Result Comment: Trev garcia note change in normal range Performed By: #### C BCS #### [address] [address] Leukocyte esterase ur dipsti ckOrdered By: BRYANNA GAFFNEY on 10-22-2024 Leukocyte esterase Test strip Ql (U) Urine leukocyte esterase detection by dipstick Negative [facility] Magnesiumon 10-22-2024 Magnesium [Mass/Vol] 1.9 mg/dL Normal 1.3-2.3 [facility] Comment on above: Performed By: #### M G #### [address] [address] Nitrite Test strip Ql (U)Ord ered By: BRYANNA GAFFNEY on 10-22-2024 Nitrite Ql (U) Nitrite ur dipstick Negative C [facility] PTTon 10-22-2024 aPTT Coag (Bld) [Time] 23.2 s Normal 19.5-32.1 [facility] Comment on above: Result Comment: New Reference Ranges effective 2018. Performed By: #### C BCS #### [address] [address] Plasma ammonia measurement ( moles/volume)Ordered By: KHALIF ZAYAS on 10-22-2024 Ammonia (P) [Moles/Vol] Plasma ammonia measurement (moles/volume) 11-35 [facility] Protein ur QLOrdered By: RICCO GAFFNEY on 10-22-2024 Protein Ql (U) Protein ur QL Negative [facility] Prothrombin Timeon INR Coag (PPP) [Relative time] 1.0 {INR} Normal [facility] Comment on above: Result Comment: 2.0 - 3.0 Group A 2.5 - 3.5 Group B Group A indications: Prophylaxis and treatment of venous thrombosis. Treatment of pulmonary embolism. Prevention of systemic embolism. Tissue heart valves. Acute myocardial infarction. Valvular heart disease. Atrial fibrillation. Group B indications: Mechanical prosthetic valves. . Performed By: #### P T #### [address] [address] PT Coag (PPP) [Time] 10.7 s Normal 8.9-12.2 [facility] Comment on above: Result Comment: New Reference Ranges effective 2018. Performed By: #### P T #### [address] [id number] Prothrombin time (PT) in laura telet poor plasmaOrdered By: BRYANNA GAFFNEY on 10-22-2024 PT Coag (PPP) [Time] Prothrombin time (P T) in platelet poor plasma by coagulation assay 8.9-12.2 [facility] Comment on above: New Reference Ranges effective 2018. RBC Test strip (U) [#/Vol]Or dered By: BRYANNA GAFFNEY on 10-22-2024 RBC (U) [#/Vol] Urine erythrocytes c ount by test strip (number/volume) Negative [facility] Sedimentation Rateon 025 Sedimentation Rate 22 mm/hr High 0-10 [facility] Comment on above: Performed By: #### B MP #### [address] [address] Serum or plasma C reactive p rotein measurement (mass/volume)Ordered By: KHALIF ZAYAS on 10-22-2024 CRP [Mass/Vol] Serum or plasma C reactive protein measurement (mass/volume) 0-10 [facility] Comment on above: Performed at: [facility] [address] [id number] Director: Ike Steward PhD, Phone: [phone] Serum or plasma folate measu rement (mass/volume)Ordered By: KHALIF ZAYAS on 10-22-2024 Folate [Mass/Vol] Serum or plasma rama te measurement (mass/volume) >3.0 [facility] Comment on above: A serum folate gael ntration of less than3.1 ng/mL is considered to representclinical deficiency.Performed at: [facility] [address] [id number] Director: Ike Setward PhD, Phone: [phone] Serum or plasma valproate le velOrdered By: INDIGO DOCKERY on 10-22-2024 Valproate [Mass/Vol] Serum or plasma reji proate level Low 50-100 [facility] Comment on above: Detection Limit = 4 <4 indicates None DetectedToxicity may occur at levels of 100-500. Measurementsof free unbound valproic acid may improve the assess-ment of clinical response.Performed at: [facility] [address] [id number] Director: Ike Steward PhD, Phone: [phone] Specific gravity Test strip (U) [Rel density]Ordered By: BRYANNA GAFFNEY on 10-22-2024 Specific gravity (U) [Rel density] Specific gravity ur dipstick 1.015-1.025 [facility] TSH DL <= 0.005 mIU/L QnOrde red By: KHALIF ZAYAS on 10-22-2024 TSH Qn Third generation thy roid stimulating hormone (TSH) measurement 0.358-3.740 [facility] Comment on above: NOTE-Dietary supplem ents containing high biotin levels may cause significantinterference with affected lab tests, including cardiovascular diagnostictests and hormone tests that use biotin technology. Incorrect test resultsmay be generated if there is biotin in the patients specimen. TSHLon 10-22-2024 TSHL 2.664 uIU/L Normal 0.358-3.740 [facility] Comment on above: Result Comment: NOTE -Dietary supplements containing high biotin levels may cause significant interference with affected lab tests, including cardiovascular diagnostic tests and hormone tests that use biotin technology. Incorrect test results may be generated if there is biotin in the patients specimen. Performed By: #### C MP #### [address] [address] Troponin I measurement by hi ghly sensitive enzyme immunoassayOrdered By: KHALIF ZAYAS on 10-22-2024 Troponin I.cardiac High sensitivity method [Mass/Vol] Troponin I measurement by highly sensitive enzyme immunoassay [facility] UA w/reflex cultureon 2024 Appearance (U) CLEAR Normal Clear [facility] Comment on above: Performed By: #### C BCS #### [facility] [address] [place] [address] Bilirubin Ql (U) Negative Normal Negative [facility] Comment on above: Performed By: #### C BCS #### [facility] [address] [place] [address] Color (U) yellow Normal Yellow [facility] Comment on above: Performed By: #### C BCS #### [facility] [address] [place] [address] Glucose Ql (U) NORMAL Normal Negative [facility] Comment on above: Performed By: #### C BCS #### [facility] [address] [place] [address] Hemoglobin Ql (U) Negative Normal Negative [facility] Comment on above: Performed By: #### C BCS #### [facility] [address] [place] [address] Ketones Ql (U) Negative Normal Negative [facility] Comment on above: Performed By: #### C BCS #### [facility] [address] [place] [address] Leukocytes Esterase Negative Normal Negative [facility] Comment on above: Performed By: #### C BCS #### [facility] [address] [place] [address] Nitrite Ql (U) Negative Normal Negative [facility] Comment on above: Performed By: #### C BCS #### [facility] [address] [place] [address] pH (U) 5 [pH] Normal [facility] Comment on above: Performed By: #### C BCS #### [facility] [address] [place] [address] Protein Ql (U) Negative Normal Negative [facility] Comment on above: Performed By: #### C BCS #### [address] [place] [address] Specific gravity (U) [Rel density] 1.020 Normal 1.015-1.025 [facility] Comment on above: Performed By: #### C BCS #### [address] [place] [address] Urobilinogen NORMAL Normal Normal-1.0 [facility] Comment on above: Performed By: #### C BCS #### [facility] [address] [place] [address] Urine appearance determinati onOrdered By: BRYANNA GAFFNEY on 10-22-2024 Appearance (U) Appearance ur Clear [facility] Urine color determinationOrd ered By: BRYANNA GAFFNEY on 10-22-2024 Color (U) Color ur Yellow [facility] Urine glucose measurement by test strip (mass/volume)Ordered By: BRYANNA GAFFNEY on 10-22-2024 Glucose Test strip (U) [Mass/Vol] Urine glucose measurement by test strip (mass/volume) Negative [facility] Urine total bilirubin detect ionOrdered By: BRYANNA GAFFNEY on 10-22-2024 Bilirubin Ql (U) Urine total bilirubi n detection Negative [facility] Urine urobilinogen measureme ntOrdered By: BRYANNA GAFFNEY on 10-22-2024 Urobilinogen Ql (U) Urine urobilinogen measurement Normal-1.0 [facility] Valproic Acid(Depakote)on Valproic Acid(Depakote) 15 ug/mL Low 50-100 [facility] Comment on above: Result Comment: Dete ction Limit = 4 <4 indicates None Detected Toxicity may occur at levels of 100-500. Measurements of free unbound valproic acid may improve the assess- ment of clinical response. Performed at: - [address] [id number] Field Support Technician: Ike Steward PhD, Phone: [phone] Performed By: #### C BCS #### [address] [id number] Venous blood lactic acid eryn surement (moles/volume)Ordered By: BRYANNA GAFFNEY on 10-22-2024 Lactate (BldV) [Moles/Vol] Venous blood lactic acid measurement (moles/volume) 0.4-2.0 [facility] Comment on above: Please note change i n normal range pH Test strip (U)Ordered By: BRYANNA GAFFNEY on 10-22-2024 pH (U) Urine pH measurement by dipstick [facility] Basic Metabolic Panelon 12-0 Anion gap [Moles/Vol] 13.0 mmol/L Normal 8.0-16.0 [facility] Comment on above: Performed By: #### B MP #### [address] [id number] Calcium [Mass/Vol] 9.1 mg/dL Normal 8.2-10.0 [facility] Comment on above: Performed By: #### B MP #### [address] [address] Chloride [Moles/Vol] 107 mmol/L Normal 94-110 [facility] Comment on above: Performed By: #### B MP #### [address] [address] CO2 [Moles/Vol] 28 mmol/L Normal 21-34 [facility] Comment on above: Performed By: #### B MP #### [facility] [address] [place] [address] Creatinine [Mass/Vol] 1.88 mg/dL High 0.50-1.[address] [facility] Comment on above: Performed By: #### B MP #### [facility] [address] [place] [address] EGFR Other Races 34 Abnormal >60 [facility] Comment on above: Performed By: #### B MP #### [facility] [address] [place] [address] GFR/1.73 sq M.predicted among blacks MDRD (S/P/Bld) [Vol rate/Area] 42 mL/min/{1.73_m2} Abnormal >60 [facility] Comment on above: Result Comment: [employer] Agent andree Kidney Disease less than 60 mL/min/1.73 m2 Kidney Failure less than 15 mL/min/1.73 m2 Average estimated GFR by age: 70+ years 75 mL/min/1.73 m2 Performed By: #### B MP #### [facility] [address] [place] [address] Glucose [Mass/Vol] 180 mg/dL High 65-100 [facility] Comment on above: Performed By: #### B MP #### [facility] [address] [place] [address] Potassium [Moles/Vol] 4.0 mmol/L Normal 3.3-5.[address] [facility] Comment on above: Performed By: #### B MP #### [facility] [address] [place] [address] Sodium [Moles/Vol] 144 mmol/L Normal 132-145 [facility] Comment on above: Performed By: #### B MP #### [address] [place] [address] Urea nitrogen [Mass/Vol] 30.0 mg/dL High 3.2-26.9 [facility] Comment on above: Performed By: #### B MP #### [address] [address] Urea nitrogen/Creatinine [Mass ratio] 16 mg/mg Normal 6-20 [facility] Comment on above: Performed By: #### B MP #### [address] [address] CBC No Differentialon 2023 Erythrocyte distribution width (RBC) [Ratio] 13.8 % Normal 11.5-14.5 [facility] Comment on above: Performed By: #### M G #### [address] [place] [address] Hematocrit (Bld) [Volume fraction] 39.9 % Normal 36.7-50.6 [facility] Comment on above: Performed By: #### M G #### [address] [place] [address] Hemoglobin (Bld) [Mass/Vol] 12.3 g/dL Low 12.4-17.3 [facility] Comment on above: Performed By: #### M G #### [address] [place] [address] MCH (RBC) [Entitic mass] 31.3 pg High 27.0-31.0 [facility] Comment on above: Performed By: #### M G #### [address] [address] MCHC (RBC) [Mass/Vol] 30.8 g/dL Low 33.0-37.[address] [facility] Comment on above: Performed By: #### M G #### [facility] [address] [place] [address] MCV (RBC) [Entitic vol] 101.5 fL High 80.0-94.0 [facility] Comment on above: Performed By: #### M G #### [address] [place] [address] Platelet mean volume (Bld) [Entitic vol] 9.3 fL Normal 7.4-10.4 [facility] Comment on above: Performed By: #### M G #### [address] [place] [address] Platelets (Bld) [#/Vol] 311 10*3/uL Normal 148-402 [facility] Comment on above: Performed By: #### M G #### [address] [place] [address] RBC (Bld) [#/Vol] 3.93 10*6/uL Low 4.13-5.69 [facility] Comment on above: Performed By: #### M G #### [address] [place] [address] WBC (Bld) [#/Vol] 6.6 10*3/uL Normal 3.6-10.8 [facility] Comment on above: Performed By: #### M G #### [address] [place] [address] Hemoglobin A1con 09-18-2024 HbA1c (Bld) [Mass fraction] 6.6 % High 4.8-5.6 [facility] Comment on above: Result Comment: Pred iabetes: 5.7 - 6.4 Diabetes: >6.4 Glycemic control for adults with diabetes: <7.0 Performed at: - [facility] [id number] Field Support Technician: Ike Steward PhD, Phone: [phone] Performed By: #### M G #### [address] [place] [address] Blood hematocrit (volume fra ction)Ordered By: [facility] on 12-27-2023 Hematocrit (Bld) [Volume fraction] 37.8 % 36.7-50.6 [facility] Blood leukocytes count (numb er/volume)Ordered By: XIAO [facility] on 12-27-2023 WBC (Bld) [#/Vol] 6.4 10*3/uL 3.6-10.8 [facility] Calcium measurement (mass fr action)Ordered By: XIAO [facility] on 12-27-2023 Calcium (Unsp spec) [Mass fraction] 8.6 mg/dL 8.2-10.0 [facility] Determination of erythrocyte mean corpuscular volume (MCV)Ordered By: [facility] on 12-27-2023 MCV (RBC) [Entitic vol] 100.3 fL 80.0-94.0 [facility] Erythrocyte distribution wid th ratioOrdered By: [facility] on 12-27-2023 Erythrocyte distribution width (RBC) [Ratio] 13.7 % 11.5-14.5 [facility] Glomerular filtration rate ( GFR) estimation/1.73 sq m using serum, plasma, or whole bOrdered By: [facility] on 12-27-2023 GFR/1.73 sq M.predicted among blacks CKD-EPI (S/P/Bld) [Vol rate/Area] 45 >60 [facility] Comment on above: Chronic Kidney Disea se less than 60 mL/min/1.73 [id number] Failure less than 15 mL/min/1.73 a5Kmgrwzz estimated GFR by age:70+ years 75 mL/min/1.73 m2 GFR/1.73 sq M.predicted among non-blacks CKD-EPI (S/P/Bld) [Vol rate/Area] 38 >60 [facility] Laboratory - Hematology and Cell countsOrdered By: XIAO VALENTINE on 12-27-2023 Platelet mean volume (Bld) [Entitic vol] 9.2 fL 7.4-10.4 [facility] RBC (Bld) [#/Vol] 3.77 10*6/uL 4.13-5.69 [facility] MCH Auto (RBC) [Entitic mass ]Ordered By: XIAO VALENTINE on 12-27-2023 MCH (RBC) [Entitic mass] 31.0 pg 27.0-31.0 [facility] MCHC Auto (RBC) [Mass/Vol]Or dered By: XIAO VALENTINE on 12-27-2023 MCHC (RBC) [Mass/Vol] 31.0 g/dL 33.0-37.[address] [facility] Platelets Auto (Bld) [#/Vol] Ordered By: XIAO VALENTINE on 12-27-2023 Platelets (Bld) [#/Vol] 325 10*3/uL 148-402 [facility] Potassium (Bld) [Moles/Vol]O rdered By: XIAO VALENTINE on 12-27-2023 Potassium [Moles/Vol] 3.9 mmol/L 3.3-5.[address] [facility] Serum or plasma anion gapOrd ered By: XIAO VALENTINE on 12-27-2023 Anion gap [Moles/Vol] 11.9 mmol/L 8.0-16.0 [facility] Serum or plasma carbon dioxi de measurement (moles/volume)Ordered By: XIAO VALENTINE on 12-27-2023 CO2 [Moles/Vol] 29 mmol/L 21-34 [facility] Serum or plasma chloride eryn surement (moles/volume)Ordered By: XIAO VALENTINE on 12-27-2023 Chloride [Moles/Vol] 105 mmol/L 94-110 [facility] Serum or plasma creatinine m easurement (mass/volume)Ordered By: XIAO VALENTINE on 12-27-2023 Creatinine [Mass/Vol] 1.75 mg/dL 0.50-1.[address] [facility] Serum or plasma glucose lyle urement (mass/volume)Ordered By: XIAO MEMBRENO on 12-27-2023 Glucose [Mass/Vol] 148 mg/dL 65-100 [facility] Serum or plasma sodium measu rement (moles/volume)Ordered By: XIAO [facility] on 12-27-2023 Sodium [Moles/Vol] 142 mmol/L 132-145 [facility] Serum or plasma urea nitroge n measurement (mass/volume)Ordered By: [facility] on 12-27-2023 Urea nitrogen [Mass/Vol] 26.5 mg/dL 3.2-26.9 [facility] Serum or plasma urea nitroge n/creatinine mass ratioOrdered By: [facility] on 12-27-2023 Urea nitrogen/Creatinine [Mass ratio] 15 mg/mg 6-20 [facility] Whole blood hemoglobin measu rement (mass/volume)Ordered By: XIAO VALENTINE on 12-27-2023 Hemoglobin (Bld) [Mass/Vol] 11.7 g/dL 12.4-17.3 [facility] Absolute immature granulocyt e countOrdered By: INDIGO DOCKERY on 12-24-2023 Immature granulocytes (Bld) [#/Vol] 0.02 10*3/uL 0.00-0.10 [facility] Absolute lymphocyte countOrd ered By: INDIGO DOCKERY on 12-24-2023 Lymphocytes Auto (Unsp spec) [#/Vol] 1.70 10*3/uL 1.30-2.90 [facility] Basophils Auto (Bld) [#/Vol] Ordered By: INDIGO DOCKERY on 12-24-2023 Basophils (Bld) [#/Vol] 0.03 10*3/uL 0.00-0.10 [facility] Blood absolute eosinophil co untOrdered By: INDIGO DOCKERY on 12-24-2023 Eosinophils (Bld) [#/Vol] 0.20 10*3/uL 0.00-0.20 [facility] Blood basophils/100 leukocyt esOrdered By: INDIGO DOCKERY on 12-24-2023 Basophils/100 WBC (Bld) 0.3 % 0.2-1.0 [facility] Blood hematocrit (volume fra ction)Ordered By: INDIGO DOCKERY on 12-24-2023 Hematocrit (Bld) [Volume fraction] 37.6 % 36.7-50.6 [facility] Blood leukocytes count (numb er/volume)Ordered By: INDIGO DOCKERY on 12-24-2023 WBC (Bld) [#/Vol] 10.2 10*3/uL 3.6-10.8 [facility] Calcium measurement (mass fr action)Ordered By: INDIGO DOCKERY on 12-24-2023 Calcium (Unsp spec) [Mass fraction] 8.5 mg/dL 8.2-10.0 [facility] Determination of erythrocyte mean corpuscular volume (MCV)Ordered By: INDIGO DOCKERY on 12-24-2023 MCV (RBC) [Entitic vol] 100.3 fL 80.0-94.0 [facility] Eosinophil count as percenta ge of total leukocytesOrdered By: INDIGO DOCKERY on 12-24-2023 Eosinophils/100 WBC (Unsp spec) 1.5 % 0.9-2.9 [facility] Erythrocyte distribution wid th ratioOrdered By: INDIGO DOCKERY on 12-24-2023 Erythrocyte distribution width (RBC) [Ratio] 13.9 % 11.5-14.5 [facility] Glomerular filtration rate ( GFR) estimation/1.73 sq m using serum, plasma, or whole bOrdered By: INDIGO DOCKERY on 12-24-2023 GFR/1.73 sq M.predicted among blacks CKD-EPI (S/P/Bld) [Vol rate/Area] 58 >60 [facility] Comment on above: Chronic Kidney Disea se less than 60 mL/min/1.73 w6Amlies Failure less than 15 mL/min/1.73 f7Jniyjgz estimated GFR by age:70+ years 75 mL/min/1.73 m2 GFR/1.73 sq M.predicted among non-blacks CKD-EPI (S/P/Bld) [Vol rate/Area] 48 >60 [facility] Glucose Glucometer (BldC) [M ass/Vol]Ordered By: PRESTON BERKOWITZ on 12-24-2023 Glucose [Mass/Vol] 129 mg/dL 65-110 [facility] Immature granulocytes (Bld) [#/Vol]Ordered By: INDIGO DOCKERY on 12-24-2023 Immature granulocytes/100 WBC (Bld) 0.20 % 0.00-1.00 [facility] Laboratory - Hematology and Cell countsOrdered By: INDIGO DOCKERY on 12-24-2023 Platelet mean volume (Bld) [Entitic vol] 9.1 fL 7.4-10.4 [facility] RBC (Bld) [#/Vol] 3.75 10*6/uL 4.13-5.69 [facility] Lymphocytes/100 WBC Auto (Bl d)Ordered By: INDIGO DOCKERY on 12-24-2023 Lymphocytes/100 WBC (Bld) 16.4 % 17.0-45.5 [facility] MCH Auto (RBC) [Entitic mass ]Ordered By: INDIGO DOCKERY on 12-24-2023 MCH (RBC) [Entitic mass] 31.2 pg 27.0-31.0 [facility] MCHC Auto (RBC) [Mass/Vol]Or dered By: INDIGO DOCKERY on 12-24-2023 MCHC (RBC) [Mass/Vol] 31.1 g/dL 33.0-37.[address] [facility] Monocytes Auto (Bld) [#/Vol] Ordered By: INDIGO DOCKERY on 12-24-2023 Monocytes (Bld) [#/Vol] 0.90 10*3/uL 0.30-0.80 [facility] Monocytes/100 WBC Auto (Bld) Ordered By: INDIGO DOCKERY on 12-24-2023 Monocytes/100 WBC (Bld) 8.5 % 5.5-11.7 [facility] Neutrophils Auto (Bld) [#/Vo l]Ordered By: INDIGO DOCKERY on 12-24-2023 Neutrophils (Bld) [#/Vol] 7.44 10*3/uL 2.20-4.80 [facility] Neutrophils seg % bldOrdered By: INDIGO DOCKERY on 12-24-2023 Segmented neutrophils/100 WBC (Bld) 73.1 % 43.0-65.0 [facility] Platelets Auto (Bld) [#/Vol] Ordered By: INDIGO DOCKERY on 12-24-2023 Platelets (Bld) [#/Vol] 258 10*3/uL 148-402 [facility] Potassium (Bld) [Moles/Vol]O rdered By: INDIGO DOCKERY on 12-24-2023 Potassium [Moles/Vol] 3.9 mmol/L 3.3-5.[address] [facility] Serum or plasma anion gapOrd ered By: INDIGO DOCKERY on 12-24-2023 Anion gap [Moles/Vol] 9.9 mmol/L 8.0-16.[address] [facility] Serum or plasma carbon dioxi de measurement (moles/volume)Ordered By: INDIGO DOCKERY on 12-24-2023 CO2 [Moles/Vol] 28 mmol/L 21-34 [facility] Serum or plasma chloride eryn surement (moles/volume)Ordered By: INDIGO DOCKERY on 12-24-2023 Chloride [Moles/Vol] 107 mmol/L 94-110 [facility] Serum or plasma creatinine m easurement (mass/volume)Ordered By: INDIGO DOCKERY on 12-24-2023 Creatinine [Mass/Vol] 1.42 mg/dL 0.50-1.[address] [facility] Serum or plasma glucose lyle urement (mass/volume)Ordered By: INDIGO DOCKERY on 12-24-2023 Glucose [Mass/Vol] 118 mg/dL 65-100 [facility] Serum or plasma sodium measu rement (moles/volume)Ordered By: INDIGO DOCKERY on 12-24-2023 Sodium [Moles/Vol] 141 mmol/L 132-145 [facility] Serum or plasma urea nitroge n measurement (mass/volume)Ordered By: INDIGO DOCKERY on 12-24-2023 Urea nitrogen [Mass/Vol] 23.5 mg/dL 3.2-26.9 [facility] Serum or plasma urea nitroge n/creatinine mass ratioOrdered By: INDIGO DOCKERY on 12-24-2023 Urea nitrogen/Creatinine [Mass ratio] 17 mg/mg 6-20 [facility] Whole blood hemoglobin measu rement (mass/volume)Ordered By: INDIGO DOCKERY on 12-24-2023 Hemoglobin (Bld) [Mass/Vol] 11.7 g/dL 12.4-17.3 [facility] Serum or plasma magnesium me asurement (mass/volume)Ordered By: INDIGO DOCKERY on 12-23-2023 Magnesium [Mass/Vol] 1.8 mg/dL 1.3-2.3 [facility] ALT (SGPT) ser/plasOrdered B y: DENIZ MCPHERSON on 12-22-2023 ALT [Catalytic activity/Vol] 25 U/L 13-66 [facility] Appearance urOrdered By: JEANA MCPHERSON on 12-22-2023 Appearance (U) Clear Clear [facility] Blood total protein measurem entOrdered By: DENIZ MCPHERSON on 12-22-2023 Protein [Mass/Vol] 7.2 g/dL 6.1-8.2 [facility] Color urOrdered By: DENIZ SCHAFFER on 12-22-2023 Color (U) chloe Yellow [facility] Interpretation of serum or p lasma cardiac troponin I measurement by high sensitivityOrdered By: DENIZ MCPHERSON on 12-22-2023 Troponin I.cardiac High sensitivity method Ql [Interp] 5 ng/L 0-76 [facility] Comment on above: Interpretation comme nt:High-sensitivity troponin I (hsTnI) assay can reliably detect low troponinconcentrations relative to conventional troponin assays. It is thepreferred marker of myocardial necrosis as recommended by the FourthUniversal Definition of Myocardial Infarction Guidelines.The diagnosis of acute myocardial infarction (AMI) is made based on a riseor fall of troponin with at least one measurement exceeding the laboratory'supper limit of normal (indicating myocardial injury), in the context ofreasonable suspicion for coronary ischemia (e.g. typical symptoms, changeson ECG, evidence for loss of myocardial infarction or demonstration ofobstructive coronary artery disease).Note: Although abnormal hsTnI values reflect injury to myocardial cells, anelevated hsTnI does not indicate the cause of injury (i.e. ischemia versusnon-ischemic disease).In some cases, myocardial injury is chronic and relatively stable such thathsTnI values remain elevated but do not change substantially over hours todays (examples include chronic kidney disease, heart failure or advancedpatient age).When determining whether there has been a significant rise or fall oftroponin on serial sampling, absolute change in troponin concentration hasgreater diagnostic accuracy for AMI then relative change criteria. A changeof >7 ng/L over a 2-hour interval or a change of >10 ng/L over a 3-hourinterval is suggested as a significant change. If the initial hsTnI isbelow or at the 99th percentile upper reference limit, a 50% change from thebaseline is considered significant. If the initial hsTnI is above the 99thpercentile upper reference limit, a 20% change from the baseline value isconsidered significant. Ketones Test strip Ql (U)Ord ered By: DENIZ MCPHERSON on 12-22-2023 Ketones Ql (U) 5 Negative [facility] Laboratory - Chemistry and C hemistry - challengeOrdered By: DENIZ MCPHERSON on 12-22-2023 Bilirubin Ql (U) 1 Negative [facility] Glucose Ql (U) Normal Negative [facility] Nitrite Test strip Ql (U)Ord ered By: DENIZ MCPHERSON on 12-22-2023 Nitrite Ql (U) Negative Negative [facility] No Panel InformationOrdered By: DENIZ MCPHERSON on 12-22-2023 Urine Urobilinogen Normal mg/dL Normal-1.0 [facility] Protein ur QLOrdered By: JEANA MCPHERSON on 12-22-2023 Protein Ql (U) 25 Negative [facility] RBC LM Ql (Urine sed)Ordered By: DENIZ MCPHERSON on 12-22-2023 RBC Ql (U) None seen /hpf 0 - 2 [facility] RBC Test strip (U) [#/Vol]Or dered By: DENIZ MCPHERSON on 12-22-2023 RBC (U) [#/Vol] Negative Negative [facility] Serum globulin measurement ( mass/volume)Ordered By: DENIZ MCPHERSON on 12-22-2023 Globulin (S) [Mass/Vol] 3.9 g/dL 1.5-4.5 [facility] Serum or plasma albumin lyle urement by bromocresol purple (BCP) dye binding method (mOrdered By: DENIZ MCPHERSON on 12-22-2023 Albumin BCP dye [Mass/Vol] 3.3 g/dL 3.4-5.0 [facility] Serum or plasma albumin/glob ulin mass ratioOrdered By: DENIZ MCPHERSON on 12-22-2023 Albumin/Globulin [Mass ratio] 0.8 {ratio} 1.1-2.5 [facility] Serum or plasma alkaline seda sphatase measurement (enzymatic activity/volume)Ordered By: DENIZ MCPHERSON on 12-22-2023 ALP [Catalytic activity/Vol] 50 U/L 54-112 [facility] Serum or plasma aspartate am inotransferase measurement with P-5'-P (enzymatic activitOrdered By: DENIZ MCPHERSON on 12-22-2023 AST With P-5'-P [Catalytic activity/Vol] 21 U/L 3-39 [facility] Serum or plasma bilirubin me asurement (mass/volume)Ordered By: DENIZ MCPHERSON on 12-22-2023 Bilirubin [Mass/Vol] 0.66 mg/dL 0.00-0.99 [facility] Specific gravity Test strip (U) [Rel density]Ordered By: DENIZ MCPHERSON on 12-22-2023 Specific gravity (U) [Rel density] 1.020 1.015-1.025 [facility] Troponin I measurement by hi ghly sensitive enzyme immunoassayOrdered By: DENZI MCPHERSON on 12-22-2023 Troponin I.cardiac High sensitivity method [Mass/Vol] 1 ng/L [facility] Troponin I.cardiac High sensitivity method [Mass/Vol] 20 % [facility] Urine leukocyte esterase det ection by dipstickOrdered By: DENIZ MCPHERSON on 12-22-2023 Leukocyte esterase Test strip Ql (U) Negative Negative [facility] Urine leukocytes count (numb er/volume)Ordered By: DENIZ MCPHERSON on 12-22-2023 WBC (U) [#/Vol] None seen /hpf 0 - 6 [facility] Venous blood lactic acid eryn surement (moles/volume)Ordered By: DENIZ MCPHERSON on 12-22-2023 Lactate (BldV) [Moles/Vol] 1.0 mmol/L 0.4-2.0 [facility] Comment on above: Please note change i n normal range pH Test strip (U)Ordered By: DENIZ MCPHERSON on 12-22-2023 pH (U) 5 [pH] [facility] Absolute immature granulocyt e countOrdered By: INDIGO DOCKERY on 06-02-2023 Immature granulocytes (Bld) [#/Vol] 0 10*3/uL 0.00-0.10 [facility] Absolute lymphocyte countOrd ered By: INDIGO DOCKERY on 06-02-2023 Lymphocytes Auto (Unsp spec) [#/Vol] 2.10 10*3/uL 1.30-2.90 [facility] Basophils Auto (Bld) [#/Vol] Ordered By: INDIGO DOCKERY on 06-02-2023 Basophils (Bld) [#/Vol] 0 10*3/uL 0.00-0.10 [facility] Blood absolute eosinophil co untOrdered By: INDIGO DOCKERY on 06-02-2023 Eosinophils (Bld) [#/Vol] 0.11 10*3/uL 0.00-0.20 [facility] Blood basophils/100 leukocyt esOrdered By: INDIGO DOCKERY on 06-02-2023 Basophils/100 WBC (Bld) 0 % 0-1 [facility] Blood hematocrit (volume fra ction)Ordered By: INDIGO DOCKERY on 06-02-2023 Hematocrit (Bld) [Volume fraction] 36.3 % 36.7-50.6 [facility] Blood leukocytes count (numb er/volume)Ordered By: INDIGO DOCKERY on 06-02-2023 WBC (Bld) [#/Vol] 5.5 10*3/uL 3.6-10.8 [facility] Blood lymphocytes/100 leukoc ytesOrdered By: INDIGO DOCKERY on 06-02-2023 Lymphocytes/100 WBC (Bld) 38 % 17-46 [facility] Calcium measurement (mass fr action)Ordered By: INDIGO DOCKERY on 06-02-2023 Calcium (Unsp spec) [Mass fraction] 8.3 mg/dL 8.2-10.0 [facility] Determination of erythrocyte mean corpuscular volume (MCV)Ordered By: INDIGO DOCKERY on 06-02-2023 MCV (RBC) [Entitic vol] 99.7 fL 80.0-94.0 [facility] Eosinophil count as percenta ge of total leukocytesOrdered By: INDIGO DOCKERY on 06-02-2023 Eosinophils/100 WBC (Unsp spec) 2.0 % 0.9-2.9 [facility] Eosinophils Manual cnt (Bld) [#/Vol]Ordered By: INDIGO DOCKERY on 06-02-2023 Eosinophils/100 WBC (Bld) 2 % 1-3 [facility] Erythrocyte distribution wid th ratioOrdered By: INDIGO DOCKERY on 06-02-2023 Erythrocyte distribution width (RBC) [Ratio] 14.2 % 11.5-14.5 [facility] Glomerular filtration rate ( GFR) estimation/1.73 sq m using serum, plasma, or whole bOrdered By: INDIGO DOCKERY on 06-02-2023 GFR/1.73 sq M.predicted among blacks CKD-EPI (S/P/Bld) [Vol rate/Area] 52 >60 [facility] Comment on above: Chronic Kidney Disea se less than 60 mL/min/1.73 [id number] Failure less than 15 mL/min/1.73 [id number] estimated GFR by age:70+ years 75 mL/min/1.73 m2 GFR/1.73 sq M.predicted among non-blacks CKD-EPI (S/P/Bld) [Vol rate/Area] 43 >60 [facility] Glucose Glucometer (BldC) [M ass/Vol]Ordered By: XIAO VALENTINE on 06-02-2023 Glucose [Mass/Vol] 107 mg/dL 65-110 [facility] Immature granulocytes (Bld) [#/Vol]Ordered By: INDIGO DOCKERY on 06-02-2023 Immature granulocytes/100 WBC (Bld) 0 % 0.00-1.00 [facility] Interpretation of serum or p lasma cardiac troponin I measurement by high sensitivityOrdered By: MELISA CAREY on 06-02-2023 Troponin I.cardiac High sensitivity method Ql [Interp] 9 ng/L 0-76 [facility] Comment on above: Interpretation comme nt:High-sensitivity troponin I (hsTnI) assay can reliably detect low troponinconcentrations relative to conventional troponin assays. It is thepreferred marker of myocardial necrosis as recommended by the FourthUniversal Definition of Myocardial Infarction Guidelines.The diagnosis of acute myocardial infarction (AMI) is made based on a riseor fall of troponin with at least one measurement exceeding the laboratory'supper limit of normal (indicating myocardial injury), in the context ofreasonable suspicion for coronary ischemia (e.g. typical symptoms, changeson ECG, evidence for loss of myocardial infarction or demonstration ofobstructive coronary artery disease).Note: Although abnormal hsTnI values reflect injury to myocardial cells, anelevated hsTnI does not indicate the cause of injury (i.e. ischemia versusnon-ischemic disease).In some cases, myocardial injury is chronic and relatively stable such thathsTnI values remain elevated but do not change substantially over hours todays (examples include chronic kidney disease, heart failure or advancedpatient age).When determining whether there has been a significant rise or fall oftroponin on serial sampling, absolute change in troponin concentration hasgreater diagnostic accuracy for AMI then relative change criteria. A changeof >7 ng/L over a 2-hour interval or a change of >10 ng/L over a 3-hourinterval is suggested as a significant change. If the initial hsTnI isbelow or at the 99th percentile upper reference limit, a 50% change from thebaseline is considered significant. If the initial hsTnI is above the 99thpercentile upper reference limit, a 20% change from the baseline value isconsidered significant. Laboratory - Chemistry and C hemistry - challengeOrdered By: INDIGO DOCKERY on 06-02-2023 Potassium [Moles/Vol] 3.9 mmol/L 3.3-5.[address] [facility] Laboratory - Hematology and Cell countsOrdered By: INDIGO DOCKERY on 06-02-2023 Platelet mean volume (Bld) [Entitic vol] 9.7 fL 7.4-10.4 [facility] RBC (Bld) [#/Vol] 3.64 10*6/uL 4.13-5.69 [facility] Lymphocytes/100 WBC Auto (Bl d)Ordered By: INDIGO DOCKERY on 06-02-2023 Lymphocytes/100 WBC (Bld) 38.0 % 17.0-45.5 [facility] MCH Auto (RBC) [Entitic mass ]Ordered By: INDIGO DOCKERY on 06-02-2023 MCH (RBC) [Entitic mass] 31.0 pg 27.0-31.0 [facility] MCHC Auto (RBC) [Mass/Vol]Or dered By: INDIGO DOCKERY on 06-02-2023 MCHC (RBC) [Mass/Vol] 31.1 g/dL 33.0-37.[address] [facility] Monocytes Auto (Bld) [#/Vol] Ordered By: INDIGO DOCKERY on 06-02-2023 Monocytes (Bld) [#/Vol] 0.40 10*3/uL 0.30-0.80 [facility] Monocytes Manual cnt (Bld) [ #/Vol]Ordered By: INDIGO DOCKERY on 06-02-2023 Monocytes/100 WBC (Bld) 7 % 6-12 [facility] Monocytes/100 WBC Auto (Bld) Ordered By: INDIGO DOCKERY on 06-02-2023 Monocytes/100 WBC (Bld) 7.0 % 5.5-11.7 [facility] Neutrophils (Bld) [#/Vol]Ord ered By: INDIGO DOCKERY on 06-02-2023 Neutrophils/100 WBC (Bld) 53 % 43-65 [facility] Neutrophils Auto (Bld) [#/Vo l]Ordered By: INDIGO DOCKERY on 06-02-2023 Neutrophils (Bld) [#/Vol] 2.92 10*3/uL 2.20-4.80 [facility] Neutrophils seg % bldOrdered By: INDIGO DOCKERY on 06-02-2023 Segmented neutrophils/100 WBC (Bld) 53.0 % 43.0-65.0 [facility] Platelets Auto (Bld) [#/Vol] Ordered By: INDIGO DOCKERY on 06-02-2023 Platelets (Bld) [#/Vol] 223 10*3/uL 148-402 [facility] Serum or plasma anion gapOrd ered By: INDIGO DOCKERY on 06-02-2023 Anion gap [Moles/Vol] 10.9 mmol/L 8.0-16.0 [facility] Serum or plasma carbon dioxi de measurement (moles/volume)Ordered By: INDIGO DOCKERY on 06-02-2023 CO2 [Moles/Vol] 26 mmol/L 21-34 [facility] Serum or plasma chloride eryn surement (moles/volume)Ordered By: INDIGO DOCKERY on 06-02-2023 Chloride [Moles/Vol] 109 mmol/L 94-110 [facility] Serum or plasma creatinine m easurement (mass/volume)Ordered By: INDIGO DOCKERY on 06-02-2023 Creatinine [Mass/Vol] 1.55 mg/dL 0.50-1.[address] [facility] Serum or plasma ferritin eryn surement (mass/volume)Ordered By: MELISA CAREY on 06-02-2023 Ferritin [Mass/Vol] 73 ng/mL 30-400 [facility] Comment on above: Performed at: [address] [id number] Director: Ike Steward PhD, Phone: [phone] Serum or plasma glucose lyle urement (mass/volume)Ordered By: INDIGO DOCKERY on 06-02-2023 Glucose [Mass/Vol] 102 mg/dL 65-100 [facility] Serum or plasma iron binding capacity measurement (mass/volume)Ordered By: MELISA CAREY on 06-02-2023 Iron binding capacity [Mass/Vol] 316 ug/dL 250-450 [facility] Serum or plasma iron measure ment (mass/volume)Ordered By: MELISA CAREY on 06-02-2023 Iron [Mass/Vol] 98 ug/dL 38-169 [facility] Serum or plasma iron saturat ion measurement (mass fraction)Ordered By: MELISA CAREY on 06-02-2023 Iron saturation [Mass fraction] 31 % 15-55 [facility] Comment on above: Performed at: [address] [id number] Director: Ike Steward PhD, Phone: [phone] Serum or plasma sodium measu rement (moles/volume)Ordered By: INDIGO DOCKERY on 06-02-2023 Sodium [Moles/Vol] 142 mmol/L 132-145 [facility] Serum or plasma unsaturated cobalamin (vitamin B12) binding capacity measurement (masOrdered By: MELISA CAREY on 06-02-2023 Cobalamin (Vitamin B12).unsaturated Binding Capacity [Mass/Vol] 218 ug/dL 111-343 [facility] Serum or plasma urea nitroge n measurement (mass/volume)Ordered By: INDIGO DOCKERY on 06-02-2023 Urea nitrogen [Mass/Vol] 25.6 mg/dL 3.2-26.9 [facility] Serum or plasma urea nitroge n/creatinine mass ratioOrdered By: INDIGO DOCKERY on 06-02-2023 Urea nitrogen/Creatinine [Mass ratio] 17 mg/mg 6-20 [facility] TSH DL <= 0.005 mIU/L QnOrde red By: MELISA CAREY on 06-02-2023 TSH Qn 2.622 uIU/L 0.358-3.740 [facility] Whole blood hemoglobin measu rement (mass/volume)Ordered By: INDIGO DOCKERY on 06-02-2023 Hemoglobin (Bld) [Mass/Vol] 11.3 g/dL 12.4-17.3 [facility] Blood hemoglobin A1C measure ment (mass/volume)Ordered By: INDIGO DOCKERY on 06-01-2023 HbA1c (Bld) [Mass/Vol] 6.5 % 4.8-5.6 [facility] Comment on above: Prediabetes: 5.7 - 6 .4 Diabetes: >6.4 Glycemic control for adults with diabetes: <7.0Performed at: [address] [place] [id number] Director: Ike Steward PhD, Phone: [phone] Complete blood count (CBC) w ith platelet count, manual differential, and review by paOrdered By: INDIGO DOCKERY on 06-01-2023 CBC W Ordered Manual Differential panel (Bld) Appear normal [facility] Serum or plasma magnesium me asurement (mass/volume)Ordered By: INDIGO DOCKERY on 06-01-2023 Magnesium [Mass/Vol] 2.0 mg/dL 1.3-2.3 [facility] Troponin I measurement by [facility] sensitive enzyme immunoassayOrdered By: VALENTE PARKER on 06-01-2023 Troponin I.cardiac High sensitivity method [Mass/Vol] 0 ng/L [facility] Troponin I.cardiac High sensitivity method [Mass/Vol] 0 % [facility] ALT (SGPT) ser/plasOrdered B y: VALENTE PARKER on 05-31-2023 ALT [Catalytic activity/Vol] 23 U/L 13-66 [facility] Appearance urOrdered By: HI PARKER on 05-31-2023 Appearance (U) Clear Clear [facility] Blood total protein measurem entOrdered By: VALENTE PARKER on 05-31-2023 Protein [Mass/Vol] 6.7 g/dL 6.1-8.2 [facility] Casts ur microOrdered By: CLARE PARKER on 05-31-2023 Casts LM Ql (Urine sed) >5 hyaline /lpf [facility] Casts LM Ql (Urine sed) >5 fine gran /lpf [facility] Color urOrdered By: VALENTE Pastrana on 05-31-2023 Color (U) chloe Yellow [facility] Ketones Test strip Ql (U)Ord ered By: VALENTE PARKER on 05-31-2023 Ketones Ql (U) Negative Negative [facility] Laboratory - Chemistry and C hemistry - challengeOrdered By: VALENTE PARKER on 05-31-2023 Bilirubin Ql (U) Negative Negative [facility] Glucose Ql (U) 50 Negative [facility] Laboratory - UrinalysisOrder ed By: VALENTE PARKER on 05-31-2023 Epithelial cells LM Ql (Urine sed) 3-6 /lpf 0 - 6 [facility] Nitrite Test strip Ql (U)Ord ered By: VALENTE PARKRE on 05-31-2023 Nitrite Ql (U) Negative Negative [facility] No Panel InformationOrdered By: VALENTE PARKER on 05-31-2023 Urine Urobilinogen Normal mg/dL Normal-1.0 [facility] Protein ur QLOrdered By: HI PARKER on 05-31-2023 Protein Ql (U) 25 Negative [facility] RBC LM Ql (Urine sed)Ordered By: VALENTE PARKER on 05-31-2023 RBC Ql (U) 2-5 /hpf 0 - 2 [facility] RBC Test strip (U) [#/Vol]Or dered By: VALENTE PARKER on 05-31-2023 RBC (U) [#/Vol] Negative Negative [facility] Serum globulin measurement ( mass/volume)Ordered By: VALENTE PARKER on 05-31-2023 Globulin (S) [Mass/Vol] 3.4 g/dL 1.5-4.5 [facility] Serum or plasma albumin lyle urement by bromocresol purple (BCP) dye binding method (mOrdered By: VALENTE PARKER on 05-31-2023 Albumin BCP dye [Mass/Vol] 3.3 g/dL 3.4-5.0 [facility] Serum or plasma albumin/glob ulin mass ratioOrdered By: VALENTE PARKER on 05-31-2023 Albumin/Globulin [Mass ratio] 1.0 {ratio} 1.1-2.5 [facility] Serum or plasma alkaline seda sphatase measurement (enzymatic activity/volume)Ordered By: VALENTE PARKER on 05-31-2023 ALP [Catalytic activity/Vol] 43 U/L 54-112 [facility] Serum or plasma aspartate am inotransferase measurement with P-5'-P (enzymatic activitOrdered By: VALENTE PARKER on 05-31-2023 AST With P-5'-P [Catalytic activity/Vol] 25 U/L 3-39 [facility] Serum or plasma bilirubin me asurement (mass/volume)Ordered By: VALENTE PARKER on 05-31-2023 Bilirubin [Mass/Vol] 0.46 mg/dL 0.00-0.99 [facility] Specific gravity Test strip (U) [Rel density]Ordered By: VALENTE PARKER on 05-31-2023 Specific gravity (U) [Rel density] 1.025 1.015-1.025 [facility] Urine leukocyte esterase det ection by dipstickOrdered By: VALENTE PARKER on 05-31-2023 Leukocyte esterase Test strip Ql (U) Negative Negative [facility] Urine leukocytes count (numb er/volume)Ordered By: VALENTE PARKER on 05-31-2023 WBC (U) [#/Vol] 2-5 /hpf 0 - 6 [facility] pH Test strip (U)Ordered By: VALENTE PARKER on 05-31-2023 pH (U) 5 [pH] [facility] BONE DENSITY STUDYon 022 Bone density scan [address] [address] Patient: WILEY MEEK Phone#: : 1940 Age: 82 Gender: M Pt. Type: Out Account: [id number] Location: Ordering: MYNOR GONZALEZ Exam Date: 09/29/2022/12:21 Family Phys: Charge Code: 256189 Physician: [place] Order #: [id number] Dose#: PROCEDURE: BONE DENSITY STUDY TECHNIQUE: Lumbar vertebral and proximal femoral dual-energy X-ray absorptiometry (DXA) was performed on a central [employer] device. SPINE ANALYSIS RESULTS: Average lumbar bone mineral density (BMD) (g/cm2): 1.048 Lumbar T-score (standard deviation relative to young adult mean BMD): -1.1 Lumbar Z-score (standard deviation relative to age matched control group): -0.7 SPINE CLASSIFICATION: Osteopenia (T-score -1.0 to -2.5). HIP ANALYSIS RESULTS: Left femoral bone mineral density (BMD) (g/cm2): 0.711 Right femoral bone mineral density (BMD) (g/cm2): 0.717 Femur T-score (standard deviation relative to young adult mean BMD): -2.3 Femur Z-score (standard deviation relative to age matched control group): -1.5 HIP CLASSIFICATION (World Health Organization): Osteopenia (T-score -1.0 to -2.5). Note: The 2007 International Society for Clinical Densitometry (ISCD) Official Positions state that osteoporosis in jorge luis-menopausal and post-menopausal women and in men age 50 and older may be diagnosed if the T-score of the lumbar spine, total hip, or femoral neck is -2.5 or less. Hip BMD is reported from the femoral neck or total proximal femur whichever is lowest. In pre-menopausal women and in men younger than age 50, T-scores may be used but Z-scores are preferred. In this patient group, a Z-score of -2.0 or lower is defined as below the expected range for age. FRAX is a computer-based algorithm which uses easily obtained clinical risk factors combined with femoral neck BMD or T-score to estimate an individual 10-year fracture probability. FRAX with BMD predicts fracture risk better than clinical risk factors or BMD alone. It is not appropriate to use FRAX to monitor treatment response. ADDITIONAL FINDINGS: No significant additional findings. Ten year probability of major osteoporotic fracture 14.5%. Continued Report - Page 2 of 2 Patient: WILEY MEEK Phone#: : 1940 Age: 82 Gender: M Pt. Type: Out Account: [id number] Location: Ordering: MYNOR GONZALEZ Exam Date: 09/29/2022/12:21 Family Phys: Charge Code: 664215 Physician: [place] Order #: [id number] Dose#: Ten year probability of hip fracture 6.0%. Dictated by: Valentina Herron MD on 09/29/2022 at 12:51 Approved by: Valentina Herron MD on 09/29/2022 at 12:53 Normal [facility] Absolute immature granulocyt e countOrdered By: SARAHI MCNAMARA on 09-01-2022 Immature granulocytes (Bld) [#/Vol] 0.03 10*3/uL 0.00-0.10 [facility] Absolute lymphocyte countOrd ered By: SARAHI MCNAMARA on 09-01-2022 Lymphocytes Auto (Unsp spec) [#/Vol] 1.50 10*3/uL 1.30-2.90 [facility] Albumin ser/plasOrdered By: SARAHI MCNAMARA on 09-01-2022 Albumin [Mass/Vol] 3.1 g/dL 3.4-5.0 [facility] Appearance urOrdered By: DENNIS MCNAMARA on 09-01-2022 Appearance (U) clear Clear [facility] Blood total protein measurem entOrdered By: SARAHI MCNAMARA on 09-01-2022 Protein [Mass/Vol] 7.0 g/dL 6.1-8.2 [facility] Color urOrdered By: SARAHI DIANE RVAIJonathan on 09-01-2022 Color (U) chloe Yellow [facility] Culture with gram stain, bod y fluidOrdered By: SARAHI MCNAMARA on 09-01-2022 MCH (RBC) [Entitic mass] 30.9 pg 27.0-31.0 [facility] Albumin/Globulin [Mass ratio] 0.8 {ratio} 1.1-2.5 [facility] AST [Catalytic activity/Vol] 24 U/L 3-39 [facility] Determination of erythrocyte mean corpuscular volume (MCV)Ordered By: SARAHI MCNAMARA on 09-01-2022 MCV (RBC) [Entitic vol] 93.6 fL 80.0-94.0 [facility] Eosinophils/100 WBC Auto (Bl d)Ordered By: LUANA MCNAMARA on 09-01-2022 Eosinophils/100 WBC (Bld) 0.7 % 0.9-2.9 [facility] Erythrocyte distribution wid th ratioOrdered By: [facility] on 09-01-2022 Erythrocyte distribution width (RBC) [Ratio] 13.6 % 11.5-14.5 [facility] Immature granulocytes/100 WB C Auto (Bld)Ordered By: [facility] MCNAMARA on 09-01-2022 Immature granulocytes/100 WBC (Bld) 0.30 % 0.00-1.00 [facility] Interpretation of serum or p lasma cardiac troponin I measurement by high sensitivityOrdered By: SARAHI MCNAMARA on 09-01-2022 Troponin I.cardiac High sensitivity method Ql [Interp] 13 ng/L 0-76 [facility] Comment on above: Interpretation comme nt:High-sensitivity troponin I (hsTnI) assay can reliably detect low troponinconcentrations relative to conventional troponin assays. It is thepreferred marker of myocardial necrosis as recommended by the FourthUniversal Definition of Myocardial Infarction Guidelines.The diagnosis of acute myocardial infarction (AMI) is made based on a riseor fall of troponin with at least one measurement exceeding the laboratory'supper limit of normal (indicating myocardial injury), in the context ofreasonable suspicion for coronary ischemia (e.g. typical symptoms, changeson ECG, evidence for loss of myocardial infarction or demonstration ofobstructive coronary artery disease).Note: Although abnormal hsTnI values reflect injury to myocardial cells, anelevated hsTnI does not indicate the cause of injury (i.e. ischemia versusnon-ischemic disease).In some cases, myocardial injury is chronic and relatively stable such thathsTnI values remain elevated but do not change substantially over hours todays (examples include chronic kidney disease, heart failure or advancedpatient age).When determining whether there has been a significant rise or fall oftroponin on serial sampling, absolute change in troponin concentration hasgreater diagnostic accuracy for AMI then relative change criteria. A changeof >7 ng/L over a 2-hour interval or a change of >10 ng/L over a 3-hourinterval is suggested as a significant change. If the initial hsTnI isbelow or at the 99th percentile upper reference limit, a 50% change from thebaseline is considered significant. If the initial hsTnI is above the 99thpercentile upper reference limit, a 20% change from the baseline value isconsidered significant. Ketones Test strip Ql (U)Ord ered By: SARAHI MCNAMARA on 09-01-2022 Ketones Ql (U) 5 Negative [facility] - Chemistry and C hemistry - challengeOrdered By: SARAHI MCNAMARA on 09-01-2022 Bilirubin Ql (U) Negative Negative [facility] Glucose Ql (U) Normal Negative [facility] Urobilinogen (U) [Mass/Vol] 4 mg/dL Normal-1.0 [facility] ALP [Catalytic activity/Vol] 86 U/L 54-112 [facility] ALT [Catalytic activity/Vol] 18 U/L 13-66 [facility] Calcium [Mass/Vol] 9.2 mg/dL 8.2-10.0 [facility] Creatinine [Mass/Vol] 1.33 mg/dL 0.50-1.[address] [facility] Globulin (S) [Mass/Vol] 3.9 g/dL 1.5-4.5 [facility] Glucose [Mass/Vol] 129 mg/dL 65-100 [facility] Urea nitrogen [Mass/Vol] 23.4 mg/dL 3.2-26.9 [facility] Urea nitrogen/Creatinine [Mass ratio] 18 mg/mg 6-20 [facility] - Hematology and Cell countsOrdered By: SARAHI MCNAMARA on 09-01-2022 Basophils (Bld) [#/Vol] 0.03 10*3/uL 0.00-0.10 [facility] Hematocrit (Bld) [Volume fraction] 37.9 % 36.7-50.6 [facility] MCHC (RBC) [Mass/Vol] 33.0 g/dL 33.0-37.[address] [facility] Platelet mean volume (Bld) [Entitic vol] 9.3 fL 7.4-10.4 [facility] Platelets (Bld) [#/Vol] 350 10*3/uL 148-402 [facility] RBC (Bld) [#/Vol] 4.05 10*6/uL 4.13-5.69 [facility] WBC (Bld) [#/Vol] 8.6 10*3/uL 3.6-10.8 [facility] Monocyte %Ordered By: SARAHI MCNAMARA on 09-01-2022 Monocyte % 12.5 g/dL 12.4-17.3 [facility] Monocytes (Bld) [#/Vol] 6.53 10*3/uL 2.20-4.80 [facility] Monocytes (Bld) [#/Vol] 0.50 10*3/uL 0.30-0.80 [facility] Monocytes (Bld) [#/Vol] 0.10 10*3/uL 0.00-0.20 [facility] Monocytes/100 WBC (Bld) 17.3 % 17.0-45.5 [facility] Monocytes/100 WBC (Bld) 5.3 % 5.5-11.7 [facility] Monocytes/100 WBC (Bld) 0.3 % 0.2-1.0 [facility] Monocyte % 143 mmol/L 132-145 [facility] Monocyte % 4.0 mmol/L 3.3-5.1 [facility] Monocyte % 106 mmol/L 94-110 [facility] Monocyte % 28 mmol/L 21-34 [facility] Monocyte % 0.50 mg/dL 0.00-0.99 [facility] Neutrophils seg % bldOrdered By: SARAHI MCNAMARA on 09-01-2022 Segmented neutrophils/100 WBC (Bld) 76.1 % 43.0-65.0 [facility] Nitrite Test strip Ql (U)Ord ered By: SARAHI MCNAMARA on 09-01-2022 Nitrite Ql (U) Negative Negative [facility] No Panel InformationOrdered By: SARAHI MCNAMARA on 09-01-2022 Estimated GFR (MDRD) Amer > 60 >60 [facility] Comment on above: Chronic Kidney Disea se less than 60 mL/min/1.73 r6Cghprx Failure less than 15 mL/min/1.73 m2Blpeanq estimated GFR by age:70+ years 75 mL/min/1.73 m2 Estimated GFR (MDRD) Non-Af Amer 52 >60 [facility] Protein ur QLOrdered By: DENNIS MCNAMARA on 09-01-2022 Protein Ql (U) Negative Negative [facility] RBC Test strip (U) [#/Vol]Or dered By: SARAHI MCNAMARA on 09-01-2022 RBC (U) [#/Vol] Negative Negative [facility] Serum or plasma anion gapOrd ered By: SARAHI MCNAMARA on 09-01-2022 Anion gap [Moles/Vol] 13.0 mmol/L 8.0-16.0 [facility] Specific gravity Test strip (U) [Rel density]Ordered By: SARAHI MCNAMARA on 09-01-2022 Specific gravity (U) [Rel density] 1.020 1.015-1.025 [facility] Urine leukocyte esterase det ection by dipstickOrdered By: SARAHI MCNAMARA on 09-01-2022 Leukocyte esterase Test strip Ql (U) Negative Negative [facility] pH Test strip (U)Ordered By: SARAHI MCNAMARA on 09-01-2022 pH (U) 6 [pH] [facility] Basic metabolic panel aka em 8on 06-13-2021 Calcium [Mass/Vol] 9.1 mg/dL 8.4 - 10. 4 mg/dL [facility] Chloride [Moles/Vol] 105 mmol/L 96 - 10 9 mmol/L [facility] CO2 [Moles/Vol] 25 mmol/L 22 - 30 mmol/L [facility] Creatinine [Mass/Vol] 1.62 mg/dL High 0.66 - 1.25 mg/dL [facility] Glucose [Mass/Vol] 83 mg/dL 65 - 100 mg/dL [facility] Interpretation and review of laboratory results Abnormal [facility] Potassium [Moles/Vol] 4.0 mmol/L 3.6 - 5.1 mmol/L [facility] Sodium [Moles/Vol] 139 mmol/L 135 - 147 mmol/L [facility] Urea nitrogen [Mass/Vol] 26 mg/dL 8 - 26 mg/dL [facility] CBC WITH DIFFERENTIALon 05-17 ABSOLUTE BASO 0.1 10 3/uL Normal 0.0-0.1 [facility] Comment on above: Performed By: #### 4 [id number] #### [place] [address] ABSOLUTE EOSIN 0.1 10 3/uL Normal 0.1-0.3 [facility] Comment on above: Performed By: #### 4 [id number] #### [place] [address] ABSOLUTE LYMPH 2.5 10 3/uL Normal 1.2-3.3 [facility] Comment on above: Performed By: #### 4 [id number] #### [place] [address] ABSOLUTE MONO 0.6 10 3/uL Normal 0.2-0.6 [facility] Comment on above: Performed By: #### 4 [id number] #### [place] [address] ABSOLUTE NEUT 4.8 10 3/uL Normal 2.4-6.6 [facility] Comment on above: Performed By: #### 4 [id number] #### [place] [address] Basophils/100 WBC (Bld) 0.7 % Normal [facility] Comment on above: Performed By: #### 4 [id number] #### [place] [address] Eosinophils/100 WBC (Bld) 1.1 % Normal [facility] Comment on above: Performed By: #### 4 [id number] #### [place] [address] Erythrocyte distribution width (RBC) [Ratio] 13.9 % Normal 11.5-14.5 [facility] Comment on above: Performed By: #### 4 [id number] #### [place] [phone] Hematocrit (Bld) [Volume fraction] 36.4 % Low 37.7-51.1 [facility] Comment on above: Performed By: #### 4 [id number] #### [place] [address] Hemoglobin (Bld) [Mass/Vol] 11.9 g/dL Low 12.8-17.7 [facility] Comment on above: Performed By: #### 4 [id number] #### [place] [phone] IG ABSOLUTE 0.0 10 3/uL Normal 0 [facility] Comment on above: Performed By: #### 4 [id number] #### [place] [address] IG PERCENT 0.1 % Normal [facility] Comment on above: Performed By: #### 4 [id number] #### [place] [address] Lymphocytes/100 WBC (Bld) 30.7 % Normal [facility] Comment on above: Performed By: #### 4 [id number] #### [place] [address] MCH (RBC) [Entitic mass] 30.5 pg Normal 27.0-34.2 [email or web address] Comment on above: Performed By: #### 4 [id number] #### [place] [address] MCHC (RBC) [Mass/Vol] 32.7 g/dL Normal 31.4-36.2 [facility] [employer] [facility] Comment on above: Performed By: #### 4 [id number] #### [place] [address] MCV (RBC) [Entitic vol] 93.3 fL Normal 80.6-99.0 [email or web address] Comment on above: Performed By: #### 4 [id number] #### [place] [address] Monocytes/100 WBC (Bld) 7.5 % Normal [email or web address] Comment on above: Performed By: #### 4 [id number] #### [place] [address] Neutrophils/100 WBC (Bld) 59.9 % Normal [email or web address] Comment on above: Performed By: #### 4 [id number] #### [place] [address] NRBC 0 Normal 0-1 [email or web address] Comment on above: Performed By: #### 4 [id number] #### [facility] [place] [address] PLATELET 305.0 x10 3/uL Normal 150.0-400.0 [email or web address] Comment on above: Performed By: #### 4 [id number] #### [place] [address] RBC 3.90 x10 6/uL Normal 3.70-5.70 [email or web address] Comment on above: Performed By: #### 4 [id number] #### [place] [address] WBC 8.1 x10 3/uL Normal 4.3-10.3 [facility] Comment on above: Performed By: #### 4 [id number] #### [place] [address] CBC with Differentialon 05-17 Absolute Immature Granulocytes 0.0 0 10 3/uL [facility] Absolute Lymph 2.5 [facility] Absolute [place] 0.6 [facility] Basophils (Bld) [#/Vol] 0.1 10*3/uL [facility] Basophils/100 WBC (Bld) 0.7 % [facility] Eosinophils (Bld) [#/Vol] 0.1 10*3/uL [facility] Eosinophils/100 WBC (Bld) 1.1 % [facility] Erythrocyte distribution width (RBC) [Ratio] 13.9 % 11.5 - 14.5 % [facility] Hematocrit (Bld) [Volume fraction] 36.4 % Low 37.7 - 51.1 % [facility] Hemoglobin (Bld) [Mass/Vol] 11.9 g/dL Low 12.8 - 17.7 g/dL [facility] Immature granulocytes/100 WBC (Bld) 0.1 % [facility] Interpretation and review of laboratory results Abnormal [facility] Lymphocytes/100 WBC (Bld) 30.7 % [facility] MCH (RBC) [Entitic mass] 30.5 pg 27.0 - 34.2 pg [facility] MCHC (RBC) [Mass/Vol] 32.7 g/dL 31.4 - 36.2 g/dl [facility] MCV (RBC) [Entitic vol] 93.3 fL 80.6 - 99.0 fL [facility] Monocytes/100 WBC (Bld) 7.5 % [facility] Neutrophils (Bld) [#/Vol] 4.8 10*3/uL [facility] Neutrophils/100 WBC (Bld) 59.9 % [facility] Platelets (Bld) [#/Vol] 305.0 10*3/uL [facility] RBC (Bld) [#/Vol] 3.90 10*6/uL [facility] WBC LM Ql (Sput) 8.1 [facility] CHEM 8on 06-13-2021 Calcium [Mass/Vol] 9.1 mg/dL Normal 8.4-10.4 [facility] Comment on above: Performed By: #### 4 [id number] #### [employer] [place] [id number] Glucose [Mass/Vol] 83 mg/dL Normal 65-100 [facility] [employer] [facility] Comment on above: Performed By: #### 4 [id number] #### [place] [address] Urea nitrogen [Mass/Vol] 26 mg/dL Normal 8-26 [facility] [employer] [facility] Comment on above: Performed By: #### 4 [id number] #### [place] [address] CO2 [Moles/Vol] 25 mmol/L Normal 22-30 [facility] [employer] [facility] Comment on above: Performed By: #### 4 [id number] #### [place] [address] Creatinine [Mass/Vol] 1.62 mg/dL High 0.66-1.25 [facility] [employer] [facility] Comment on above: Performed By: #### 4 [id number] #### [place] [address] Potassium [Moles/Vol] 4.0 mmol/L Normal 3.6-5.1 [email or web address] Comment on above: Performed By: #### 4 [id number] #### [place] [address] Chloride [Moles/Vol] 105 mmol/L Normal 96-109 [facility] [employer] [facility] Comment on above: Performed By: #### 4 [id number] #### [facility] [place] [id number] Sodium [Moles/Vol] 139 mmol/L Normal 135-147 [facility] [employer] [facility] Comment on above: Performed By: #### 4 [id number] #### [employer] [address] [address] GFRon 06-13-2021 GFR 41 Normal [facility] Comment on above: Result Comment: To e stimate the GFR for Americans, multiply the result provided by 1.21. Population mean GFR = 116 ml/min/1.73 sq.m. for ages 18-29 yrs. The MDRD is validated in individuals 18-70 years of age. It is less accurate in patients with extremes of muscle mass, restriction of dietary protein, ingestion of creatine, extra-renal metabolism of creatinine, or treatment with medications that affect renal tubular creatinine secretion. GFR Categories in Chronic Kidney Disease (CKD) Category: GFR(mL/min/1.73m^2) Interpretation: G1* 90 or greater Normal or high G2* 60-89 Mild decrease G3a 45-59 Mild to moderate decrease G3b 30-44 Moderate to severe decrease G4 15-29 Severe decrease G5 14 or less Kidney failure *G1&G2: In the absence of evidence of kidney damage, neither GFR category G1 nor G2 fulfill the criteria for CKD Kidney Int Suppl.2013;3:1-150 Performed By: #### G FR1 #### [place] [address] GLOMERULAR FILTRATION RATEon 06-13-2021 GFR 41 [facility] Comment on above: To estimate the GFR for Americans, multiply the result provided by 1.21. Population mean GFR = 116 ml/min/1.73 sq.m. for ages 18-29 yrs. The MDRD is validated in individuals 18-70 years of age. It is less accurate in patients with extremes of muscle mass, restriction of dietary protein, ingestion of creatine, extra-renal metabolism of creatinine, or treatment with medications that affect renal tubular creatinine secretion. GFR Categories in Chronic Kidney Disease (CKD) Category: GFR(mL/min/1.73m^2) Interpretation: G1* 90 or greater Normal or high G2* 60-89 Mild decrease G3a 45-59 Mild to moderate decrease G3b 30-44 Moderate to severe decrease G4 15-29 Severe decrease G5 14 or less Kidney failure *G1&G2: In the absence of evidence of kidney damage, neither GFR category G1 nor G2 fulfill the criteria for CKD Kidney Int Suppl.2013;3:1-150 LACTATEon 06-13-2021 Lactate [Moles/Vol] 1.6 mmol/L Normal 0.7-2.0 [email or web address] Comment on above: Performed By: #### 4 [id number] #### [place] [address] [employer] No Panel Informationon 06-13 [facility] nRBC 0 [facility] PROCALCITONINon 06-13-2021 PROCALCITONIN 0.046 ng/mL Normal 0.00 - 0.077 [facility] Comment on above: Result Comment: Proc alcitonin Interpretation Guidelines Diagnosis of Systemic Bacterial Infection/Sepsis/or Septic Shock <0.50 ng/mL: Low risk for sepsis; localized infection possible. Recommend retest within 6-24hrs. >=0.50-<2.0 ng/mL: Sepsis is possible. Interpret in context of clinical condition of the patient. Recommend retest within 6-24hrs. >=2.0 ng/mL: High risk for sepsis and /or septic shock. >10.0 ng/mL: Severe sepsis or septic shock. Diagnosis of Lower Respiratory Tract Infection (LRTI) and Antibiotic Therapy Recommendation <0.10 ng/mL: Bacterial infection very unlikely. Antibiotics strongly discouraged. 0.10-0.25 ng/mL: Bacterial infection unlikely. Antibiotics discouraged. 0.26-0.50 ng/mL: Bacterial infection likely. Antibiotics encouraged. >0.51 ng/mL: Bacterial infection very likely. Antibiotics strongly encouraged. Performed By: #### 3 [id number] #### [place] [address] Procalcitoninon 06-13-2021 Procalcitonin 0.046 ng/mL 0.00 - 0.077 ng/mL [facility] Comment on above: Procalcitonin Interp retation Guidelines Diagnosis of Systemic Bacterial Infection/Sepsis/or Septic Shock <0.50 ng/mL: Low risk for sepsis; localized infection possible. Recommend retest within 6-24hrs. >=0.50-<2.0 ng/mL: Sepsis is possible. Interpret in context of clinical condition of the patient. Recommend retest within 6-24hrs. >=2.0 ng/mL: High risk for sepsis and /or septic shock. >10.0 ng/mL: Severe sepsis or septic shock. Diagnosis of Lower Respiratory Tract Infection (LRTI) and Antibiotic Therapy Recommendation <0.10 ng/mL: Bacterial infection very unlikely. Antibiotics strongly discouraged. 0.10-0.25 ng/mL: Bacterial infection unlikely. Antibiotics discouraged. 0.26-0.50 ng/mL: Bacterial infection likely. Antibiotics encouraged. >0.51 ng/mL: Bacterial infection very likely. Antibiotics strongly encouraged. [employer] [facility] SARS-COV-2, QPCRon 0 SARS-CoV-2 (COVID-19) RNA SHAILESH+probe Ql (Unsp spec) Not detected Normal Not Detected [facility] Comment on above: Result Comment: Resu lts are for the identification of SARS-CoV-2 RNA. The SARS-CoV-2 RNA is generally detectable in upper respiratory and bronchoalveolar lavage (BAL) specimens during the acute phase of infection. Positive results are indicative of the presence of SARS-CoV-2 RNA; clinical correlation with patient history and other diagnostic information is necessary to determine patient infection status. Positive results do not rule out bacterial infection or co-infection with other viruses. The agent detected may not be the definite cause of disease. Negative results do not preclude SARS-CoV-2 infection and should not be used as the sole basis for patient management decisions. Negative results must be combined with clinical observations, patient history, and epidemiological information. Performed By: #### 3 [id number] #### [place] [address] MRI BRAIN WITHOUT IV CONTRAS Ton 06-25-2020 MRI BRAIN WITHOUT IV CONTRAST EXAMINATION: MRI OF THE BRAIN WITHOUT CONTRAST 06/25/2020 8:54 am TECHNIQUE: Multiplanar multisequence MRI of the brain was performed without the administration of intravenous contrast. COMPARISON: 12/25/2007 brain MRI. HISTORY: Altered mental status Pt states having memory loss. No injury. No cancer hx. FINDINGS: There is significant artifact anteriorly affecting the diagnostic quality of the examination particularly when evaluating FLAIR and gradient echo sequences. Increased FLAIR and decreased gradient echo signal anteriorly results from this artifact. The lateral and 3rd ventricles are mildly enlarged. The 4th ventricle is normal size and position. Cortical sulci and sylvian fissures are prominent. There is mild periventricular and scattered subcortical white matter hyperintense T2 signal. There are no masses or mass effect. There are no parenchymal hemorrhages or extra-axial fluid collections. No definite acute CVA. No restricted diffusion. There is prominence to the extra-axial space around the cerebellum. The cerebellum and brainstem are otherwise unremarkable. There is mucosal thickening of the ethmoid and right maxillary sinuses. There is minimal hyperintense T2 signal within the left mastoid air cells. Osseous calvarium is normal. The globes and extraocular soft tissues are unremarkable. The arterial and venous vascular flow voids are well maintained. IMPRESSION: No definite acute intracranial pathology. Limited evaluation of the anterior brain and soft tissues due to artifact as described. Moderate cerebral and mild cerebellar atrophy. Mild periventricular and scattered subcortical white matter hyperintense T2 signal consistent with demyelination/dysmyelinat ion and/or microangiopathic ischemic changes of aging. This has mildly progressed. Minimal ethmoid and right maxillary mucosal sinus disease as well as minimal left mastoiditis. Normal [facility] MRI Brain Without IV Contras ton 06-25-2020 No definite acute intracranial pathology. Limited evaluation of the anterior brain and soft tissues due to artifact as described. Moderate cerebral and mild cerebellar atrophy. Mild periventricular and scattered subcortical white matter hyperintense T2 signal consistent with demyelination/dysmyelinat ion and/or microangiopathic ischemic changes of aging. This has mildly progressed. Minimal ethmoid and right maxillary mucosal sinus disease as well as minimal left mastoiditis. [facility] EXAMINATION: MRI OF THE BRAIN WITHOUT CONTRAST 06/25/2020 8:54 am TECHNIQUE: Multiplanar multisequence MRI of the brain was performed without the administration of intravenous contrast. COMPARISON: 12/25/2007 brain MRI. HISTORY: Altered mental status Pt states having memory loss. No injury. No cancer hx. FINDINGS: There is significant artifact anteriorly affecting the diagnostic quality of the examination particularly when evaluating FLAIR and gradient echo sequences. Increased FLAIR and decreased gradient echo signal anteriorly results from this artifact. The lateral and 3rd ventricles are mildly enlarged. The 4th ventricle is normal size and position. Cortical sulci and sylvian fissures are prominent. There is mild periventricular and scattered subcortical white matter hyperintense T2 signal. There are no masses or mass effect. There are no parenchymal hemorrhages or extra-axial fluid collections. No definite acute CVA. No restricted diffusion. There is prominence to the extra-axial space around the cerebellum. The cerebellum and brainstem are otherwise unremarkable. There is mucosal thickening of the ethmoid and right maxillary sinuses. There is minimal hyperintense T2 signal within the left mastoid air cells. Osseous calvarium is normal. The globes and extraocular soft tissues are unremarkable. The arterial and venous vascular flow voids are well maintained. [facility] [place], Rad Results In - 06/25/2020 2:33 PM EDT EXAMINATION: MRI OF THE BRAIN WITHOUT CONTRAST 06/25/2020 8:54 am TECHNIQUE: Multiplanar multisequence MRI of the brain was performed without the administration of intravenous contrast. COMPARISON: 12/25/2007 brain MRI. HISTORY: Altered mental status Pt states having memory loss. No injury. No cancer hx. FINDINGS: There is significant artifact anteriorly affecting the diagnostic quality of the examination particularly when evaluating FLAIR and gradient echo sequences. Increased FLAIR and decreased gradient echo signal anteriorly results from this artifact. The lateral and 3rd ventricles are mildly enlarged. The 4th ventricle is normal size and position. Cortical sulci and sylvian fissures are prominent. There is mild periventricular and scattered subcortical white matter hyperintense T2 signal. There are no masses or mass effect. There are no parenchymal hemorrhages or extra-axial fluid collections. No definite acute CVA. No restricted diffusion. There is prominence to the extra-axial space around the cerebellum. The cerebellum and brainstem are otherwise unremarkable. There is mucosal thickening of the ethmoid and right maxillary sinuses. There is minimal hyperintense T2 signal within the left mastoid air cells. Osseous calvarium is normal. The globes and extraocular soft tissues are unremarkable. The arterial and venous vascular flow voids are well maintained. IMPRESSION: No definite acute intracranial pathology. Limited evaluation of the anterior brain and soft tissues due to artifact as described. Moderate cerebral and mild cerebellar atrophy. Mild periventricular and scattered subcortical white matter hyperintense T2 signal consistent with demyelination/dysmyelinat ion and/or microangiopathic ischemic changes of aging. This has mildly progressed. Minimal ethmoid and right maxillary mucosal sinus disease as well as minimal left mastoiditis. [facility] Folateon 06-10-2020 Folate [Mass/Vol] 12.2 ng/mL [facility] Comment on above: Folate Reference Ran ge: >2.8 ng/mL . SED rateon 06-10-2020 Sed Rate 3 [facility] Syphilis Treponema Antibodyo n 06-10-2020 Syphilis Treponema Antibody Nonreactive Nonreactive [facility] T3, freeon 06-10-2020 Free T3 [Mass/Vol] 3.6 pg/mL 2.8 - 5.3 pg/mL [facility] [facility] T[facility], freeon 06-10-2020 Free T4 [Mass/Vol] 0.83 ng/dL 0.78 - 2. 19 ng/dL [facility] Vitamin B12on 06-10-2020 Cobalamin (Vitamin B12) [Mass/Vol] 258 pg/mL 239 - 931 pg/mL [facility] Vitamin D 25 hydroxyon 06-10 25-Hydroxyvitamin D2+25-Hydroxyvitamin D3 [Mass/Vol] 25.9 ng/mL [facility] Comment on above: Reference Range: Deficiency: <20 ng/mL Insufficiency: 21-29 ng/mL Optimal Level: >=30 ng/mL Possible Toxicity: >80 ng/mL - 80 ng/mL is the lowest reported level associated with toxicity in patients without primary hyperthyroidism who have normal renal function. CBC and differentialon 05-22 Absolute [place] 0.4 [facility] Basophils (Bld) [#/Vol] 0.0 10*3/uL [facility] Basophils/100 WBC (Bld) 0.5 % [facility] Eosinophils (Bld) [#/Vol] 0.2 10*3/uL [facility] Eosinophils/100 WBC (Bld) 3.1 % [facility] Erythrocyte distribution width (RBC) [Ratio] 13.8 % 11.5 - 14.5 % [facility] Hematocrit (Bld) [Volume fraction] 43.1 % 37.7 - 51.1 % [facility] Hemoglobin (Bld) [Mass/Vol] 13.8 g/dL 12.8 - 17.7 g/dL [facility] Lymphocytes (Bld) [#/Vol] 1.8 10*3/uL [facility] Lymphocytes/100 WBC (Bld) 28.9 % [facility] MCH (RBC) [Entitic mass] 30.5 pg 27 - 34.2 pg [facility] MCHC (RBC) [Mass/Vol] 32.0 g/dL 31.4 - 36.2 g/dl [facility] MCV (RBC) [Entitic vol] 95.4 fL 80.6 - 99 fL [facility] Monocytes/100 WBC (Bld) 6.8 % [facility] Neutrophils (Bld) [#/Vol] 3.8 10*3/uL [facility] Neutrophils/100 WBC (Bld) 60.7 % [facility] Platelets (Bld) [#/Vol] 276.0 10*3/uL [facility] RBC (Bld) [#/Vol] 4.52 10*6/uL [facility] WBC LM Ql (Sput) 6.2 [facility] Comprehensive metabolic pane sánchez 05-22-2020 Albumin [Mass/Vol] 4.0 g/dL 3.5 - 5 g/dL [facility] Alk Phos 56 U/L 24 - 126 U/L [facility] ALT [Catalytic activity/Vol] 16 U/L 4 - 50 U/L [facility] AST [Catalytic activity/Vol] 37 U/L 3 - 55 U/L [facility] Bilirubin [Mass/Vol] 0.5 mg/dL 0.2 - 1 .6 mg/dL [facility] Calcium [Mass/Vol] 9.5 mg/dL 8.4 - 10. 4 mg/dL [facility] Chloride [Moles/Vol] 107 mmol/L 96 - 10 9 mmol/L [facility] CO2 [Moles/Vol] 25 mmol/L 22 - 30 mmol/L [facility] Comprehensive metabolic 2000 panel 0.81 mg/dL 0.66 - 1.25 mg/dL [facility] Glucose [Mass/Vol] 125 mg/dL High 65 - 100 mg/dL [facility] Potassium [Moles/Vol] 4.6 mmol/L 3.6 - 5.1 mmol/L [facility] Protein [Mass/Vol] 7.0 g/dL 6.3 - 8.2 g/dL [facility] Sodium [Moles/Vol] 141 mmol/L 135 - 147 mmol/L [facility] Urea nitrogen [Mass/Vol] 23 mg/dL 8 - 26 mg/dL [facility] GLOMERULAR FILTRATION RATEon 05-22-2020 GFR/1.73 sq M.predicted MDRD (S/P/Bld) [Vol rate/Area] mL/min/{1.73_m2} [facility] Comment on above: To estimate the GFR for Americans, multiply the result provided by 1.21. Population mean GFR = 116 ml/min/1.73 sq.m. for ages 18-29 yrs. The MDRD is validated in individuals 18-70 years of age. It is less accurate in patients with extremes of muscle mass, restriction of dietary protein, ingestion of creatine, extra-renal metabolism of creatinine, or treatment with medications that affect renal tubular creatinine secretion. GFR Categories in Chronic Kidney Disease (CKD) Category: GFR(mL/min/1.73m^2) Interpretation: G1* 90 or greater Normal or high G2* 60-89 Mild decrease G3a 45-59 Mild to moderate decrease G3b 30-44 Moderate to severe decrease G4 15-29 Severe decrease G5 14 or less Kidney failure *G1&G2: In the absence of evidence of kidney damage, neither GFR category G1 nor G2 fulfill the criteria for CKD Kidney Int Suppl.2013;3:1-150 Hemoglobin A1con 05-22-2020 HbA1c (Bld) [Mass fraction] 6.1 % High 0 - 6 % [facility] Comment on above: Reference Interval f or %A1c %A1c (NGSP) Interpretation <6.0% Non-Diabetic Range >6.5% Action Suggested . Interpretation and review of laboratory results Abnormal [facility] Lipid panelon 05-22-2020 Cholesterol [Mass/Vol] 172 mg/dL 0 - 2 00 mg/dL [facility] Comment on above: CHOLESTEROL REFERENC E RANGE Desirable <200 mg/dL Borderline 200-239 mg/dL High >240 mg/dL . Cholesterol in HDL [Mass/Vol] 29.9 mg/dL Low 40 - 59.9 mg/dL [facility] Comment on above: Interpretive data fo r HDL Cholesterol states: HDL <40 mg/dL is low and constitutes a coronary disease risk factor. HDL >60 mg/dL is a negative risk factor for coronary heart disease. . Cholesterol in LDL [Mass/Vol] 86 mg/dL 0 - 100 mg/dL [facility] Comment on above: LDL REFERENCE RANGE Optimal <100 mg/dl Near Optimal 100-129 mg/dL Borderline High 130-159 mg/dL High 160-189 mg/dL Very High >=190 mg/dL . Cholesterol in VLDL [Mass/Vol] 57 mg/dL High <42 [facility] Triglyceride [Mass/Vol] 283 mg/dL High 0 - 150 mg/dL [facility] Comment on above: TRIGLYCERIDE REFEREN CE RANGE Normal <150 mg/dL Borderline High 150-199 mg/dL High 200-499 mg/dL Very High >=500 mg/dL . Otheron 05-22-2020 Interpretation and review of laboratory results Abnormal [facility] TSHon 05-22-2020 TSH Qn 1.900 m[IU]/L [facility] Vitamin B12on 05-22-2020 Cobalamin (Vitamin B12) [Mass/Vol] 228 pg/mL Low 239 - 931 pg/mL [facility] Interpretation and review of laboratory results Abnormal [facility] Echocardiogram complete (M-M ode/2D)on 04-27-2020 Transthoracic Echo R WILEY Rehman Exam Date: 04/27/2020 10:10 Ordering Physician: GORGE COLON MD Age 80 Gender: M Exam Location: [facility] Primary Care Physician: LINDSEY LANDAVERDE MD : : 1940 Ht (in): 72 Wt (lb): 200 Technologist: ASHLYN RAE RVS, RCS BSA: 2.16 m Procedure CPT: Patient Room: [facility] Indications: Abnormal ECG CARDIAC HISTORY Established Executive Creative Director: GORGE COLON MD Shortness of Breath: No Actively having Chest Pain: No History of CABG: No Date: N/A History of PTCA/Stent: No Date: N/A History of Valve Intervention: No Date: N/A Valve Intervention Details: N/A Other History: HTN BP: 133 / 84 HR: 66 Contrast: NONE Technical Quality: Adequate MEASUREMENTS (Male / Female) Normal Values 2D ECHO LV Diastolic Diameter LAURA 3.4 cm 4.2 - 5.9 / 3 LV Ejection Fraction MOD 65.9 % LV Systolic Diameter PLAX 2.2 cm LV Cardiac Index MOD 4C 2034.6 cm IVS Diastolic Thickness 1.1 cm 0.6 - 1.0 / 0 LV Ejection Fraction 4C A 66.7 % LVPW Diastolic Thickness 0.9 cm 0.6 - 1.0 / 0 LV Cardiac Index 4C AL 2076.1 cm LV Relative Wall Thicknes 0.6 LV Ejection Fraction MOD 69.8 % RV Internal Dim ED PLAX 1.9 cm LV Cardiac Index MOD 2C 1836.0 cm RV LV Int Dim Lantigua Ratio 0.6 LV Ejection Fraction 2C A 69.7 % LVOT Diameter 2.0 cm LV Cardiac Index 2C AL 1826.3 cm Aortic Root Diameter 3.1 cm LV Ejection Fraction 2D T 67.1 % LA Systolic Diameter LX 2.5 cm 3.0 - 4.0 / 2 LA Volume Index 23.6 cm /m 16 - 28 cm /m LV Ejection Fraction MOD 68.1 % >= 55 % Ascending Aorta Diameter 3.6 cm LV Cardiac Index MOD BP 1952.1 cm DOPPLER AV Peak Velocity 145.0 cm/s MV Mean Velocity 83.9 cm/s AV Peak Gradient 8.4 mmHg MV Mean Gradient 3.0 mmHg AV Mean Gradient 4.0 mmHg MV Area PHT 3.7 cm AV Velocity Time Integral 26.9 cm Mitral Valve Area 2.1 cm LVOT Peak Velocity 106.0 cm/s Mitral E Point Velocity 83.7 cm/s LVOT Peak Gradient 4.5 mmHg Mitral A Point Velocity 122.0 cm/s LVOT Velocity Time Integr 23.9 cm Mitral E to A Ratio 0.7 LVOT Cardiac Index 2293.8 cm LV E' Lateral Velocity 5.2 cm/s AV Area Cont Eq vti 2.8 cm Mitral E to LV E' Lateral 16.0 AV Area Cont Eq pk 2.3 cm LV E' Septal Velocity 4.6 cm/s MV Peak Velocity 132.0 cm/s Mitral E to LV E' Septal 18.3 MV Peak Gradient 7.0 mmHg FINDINGS Left Ventricle Concentric left ventricular hypertrophy with grade 1 diastolic dysfunction estimate ejection fraction 60 to 65%. EF < 40% : No Right Ventricle The right ventricle is normal in size and function. Right Atrium The right atrium is normal in size. Left Atrium The left atrium is normal in size. Mitral Valve Normal structure mitral valve. With mild regurgitation. Aortic Valve Normal structure with no significant stenosis with trace insufficiency. Tricuspid Valve Normal valve structures with mild insufficiency. Pulmonic Valve Structurally normal pulmonic valve without significant stenosis. There is no pulmonic regurgitation. Pericardium Normal pericardium without effusion. Aorta Normal ascending aorta dimension. [facility] Favian, Rad Results In - 04/27/2020 11:44 AM EDT Transthoracic Echo Report WILEY MEEK Exam Date: 04/27/2020 10:10 Ordering Physician: GORGE COLON MD Age 80 Gender: M Exam Location: [facility] Primary Care Physician: LINDSEY LANDAVERDE MD : : 1940 Ht (in): 72 Wt (lb): 200 Technologist: ASHLYN RAE RVS, RCS BSA: 2.16 m Procedure CPT: Patient Room: [facility] Indications: Abnormal ECG CARDIAC HISTORY Established Executive Creative Director: GORGE COLON MD Shortness of Breath: No Actively having Chest Pain: No History of CABG: No Date: N/A History of PTCA/Stent: No Date: N/A History of Valve Intervention: No Date: N/A Valve Intervention Details: N/A Other History: HTN BP: 133 / 84 HR: 66 Contrast: NONE Technical Quality: Adequate MEASUREMENTS (Male / Female) Normal Values 2D ECHO LV Diastolic Diameter LAURA 3.4 cm 4.2 - 5.9 / 3 LV Ejection Fraction MOD 65.9 % LV Systolic Diameter PLAX 2.2 cm LV Cardiac Index MOD 4C 2034.6 cm IVS Diastolic Thickness 1.1 cm 0.6 - 1.0 / 0 LV Ejection Fraction 4C A 66.7 % LVPW Diastolic Thickness 0.9 cm 0.6 - 1.0 / 0 LV Cardiac Index 4C AL 2076.1 cm LV Relative Wall Thicknes 0.6 LV Ejection Fraction MOD 69.8 % RV Internal Dim ED PLAX 1.9 cm LV Cardiac Index MOD 2C 1836.0 cm RV LV Int Dim L[place]igua Ratio 0.6 LV Ejection Fraction 2C A 69.7 % LVOT Diameter 2.0 cm LV Cardiac Index 2C AL 1826.3 cm Aortic Root Diameter 3.1 cm LV Ejection Fraction 2D T 67.1 % LA Systolic Diameter LX 2.5 cm 3.0 - 4.0 / 2 LA Volume Index 23.6 cm /m 16 - 28 cm /m LV Ejection Fraction MOD 68.1 % >= 55 % Ascending Aorta Diameter 3.6 cm LV Cardiac Index MOD BP 1952.1 cm DOPPLER AV Peak Velocity 145.0 cm/s MV Mean Velocity 83.9 cm/s AV Peak Gradient 8.4 mmHg MV Mean Gradient 3.0 mmHg AV Mean Gradient 4.0 mmHg MV Area PHT 3.7 cm AV Velocity Time Integral 26.9 cm Mitral Valve Area 2.1 cm LVOT Peak Velocity 106.0 cm/s Mitral E Point Velocity 83.7 cm/s LVOT Peak Gradient 4.5 mmHg Mitral A Point Velocity 122.0 cm/s LVOT Velocity Time Integr 23.9 cm Mitral E to A Ratio 0.7 LVOT Cardiac Index 2293.8 cm LV E' Lateral Velocity 5.2 cm/s AV Area Cont Eq vti 2.8 cm Mitral E to LV E' Lateral 16.0 AV Area Cont Eq pk 2.3 cm LV E' Septal Velocity 4.6 cm/s MV Peak Velocity 132.0 cm/s Mitral E to LV E' Septal 18.3 MV Peak Gradient 7.0 mmHg FINDINGS Left Ventricle Concentric left ventricular hypertrophy with grade 1 diastolic dysfunction estimate ejection fraction 60 to 65%. EF < 40% : No Right Ventricle The right ventricle is normal in size and function. Right Atrium The right atrium is normal in size. Left Atrium The left atrium is normal in size. Mitral Valve Normal structure mitral valve. With mild regurgitation. Aortic Valve Normal structure with no significant stenosis with trace insufficiency. Tricuspid Valve Normal valve structures with mild insufficiency. Pulmonic Valve Structurally normal pulmonic valve without significant stenosis. There is no pulmonic regurgitation. Pericardium Normal pericardium without effusion. Aorta Normal ascending aorta dimension. IMPRESSION: Concentric left ventricular hypertrophy with grade 1 diastolic dysfunction normal ejection fraction. Mild mitral and tricuspid insufficiency. RECOMMENDATIONS : None Gorge Colon MD (Electronically Signed) Final Date: 27 April 2020 11:43 [facility] Vital Signs Date Time Vital Sign Value Performing Clinician Facility 07-28-2025 01:00-0400 Body height 182.88 cm [facility] [place] [facility] 07-28-2025 01:00-0400 Diastolic blood pressure 77 mm[Hg] [facility] [place] [facility] [place] [facility] 07-28-2025 01:00-0400 Heart rate 74 /min [facility] [place] [facility] [place] [facility] 07-28-2025 01:00-0400 Respiratory rate 16 /min [facility] [place] 07-28-2025 01:00-0400 SaO2% (BldA) [Mass fraction] 95 % [facility] [place] [facility] [place] [facility] 07-28-2025 01:00-0400 Systolic blood pressure 127 mm[Hg] [facility] [place] [facility] [place] [facility] 07-22-2025 12:16-0400 Diastolic blood pressure 85 mm[Hg] JAEL ASHLEY [facility] 07-22-2025 12:16-0400 Heart rate 89 /min JAEL ASHLEY [facility] 07-22-2025 12:16-0400 SaO2% (BldA) [Mass fraction] 93 % JAEL ASHLEY [facility] 07-22-2025 12:16-0400 Systolic blood pressure 134 mm[Hg] JAEL BOYD [facility] 07-22-2025 12:00-0400 Body temperature 96.8 [degF] JAEL ASHLEY [facility] 07-22-2025 08:08-0400 Respiratory rate 16 /min JAEL ASHLEY [facility] 07-22-2025 06:00-0400 Body weight 84.37 kg JAEL ASHLEY [facility] 07-19-2025 14:21-0400 Body height 185.42 cm JAEL ASHLEY [facility] 06-30-2025 01:00-0400 Body height 182.88 cm [facility] [place] 06-30-2025 01:00-0400 Body mass index (BMI) [Ratio] 26.8 kg/m2 [facility] [place] 06-30-2025 01:00-0400 Body weight 89.72 kg [facility] [place] [facility] 06-30-2025 01:00-0400 Diastolic blood pressure 56 mm[Hg] [facility] [place] 06-30-2025 01:00-0400 Heart rate 90 /min [facility] [place] 06-30-2025 01:00-0400 Respiratory rate 16 /min [facility] [place] 06-30-2025 01:00-0400 SaO2% (BldA) [Mass fraction] 94 % [facility] [place] 06-30-2025 01:00-0400 Systolic blood pressure 138 mm[Hg] [facility] [place] 04-28-2025 01:00-0400 Diastolic blood pressure 78 mm[Hg] [facility] [place] 04-28-2025 01:00-0400 Heart rate 72 /min [facility] [place] 04-28-2025 01:00-0400 Respiratory rate 16 /min [facility] [place] 04-28-2025 01:00-0400 SaO2% (BldA) [Mass fraction] 96 % [facility] [place] 04-28-2025 01:00-0400 Systolic blood pressure 124 mm[Hg] [facility] [place] 02-24-2025 01:00-0400 Diastolic blood pressure 78 mm[Hg] [facility] [place] 02-24-2025 01:00-0400 Heart rate 84 /min [facility] [place] 02-24-2025 01:00-0400 Respiratory rate 16 /min [facility] [place] 02-24-2025 01:00-0400 SaO2% (BldA) [Mass fraction] 97 % [facility] [place] 02-24-2025 01:00-0400 Systolic blood pressure 131 mm[Hg] [facility] [place] 10-24-2024 15:28-0500 SaO2% (BldA) [Mass fraction] 97 % MONTRELL EDWARD MD Work Phone: [facility] 10-24-2024 14:00-0500 Diastolic blood pressure 90 mm[Hg] MONTRELL EDWARD MD Work Phone: [facility] 10-24-2024 14:00-0500 Heart rate 98 /min MONTRELL EDWARD MD Work Phone: [facility] 10-24-2024 14:00-0500 Systolic blood pressure 146 mm[Hg] MONTRELL EDWARD MD Work Phone: [facility] 10-24-2024 12:26-0500 Body temperature 96.9 [degF] MONTRELL EDWARD MD Work Phone: [facility] 10-24-2024 12:26-0500 Respiratory rate 16 /min MONTRELL EDWARD MD Work Phone: [facility] 10-24-2024 06:00-0500 Body weight 86.86 kg MONTRELL EDWARD MD Work Phone: [facility] 10-22-2024 18:11-0500 Body height 182.88 cm MONTRELL EDWARD MD Work Phone: [facility] 12-24-2023 12:16-0400 Body temperature 97.8 [degF] MD MONTRELL EDWARD Work Phone: [facility] 12-24-2023 12:16-0400 Diastolic blood pressure 87 mm[Hg] MD MONTRELL EDWARD Work Phone: [facility] 12-24-2023 12:16-0400 Heart rate 90 /min MD MONTRELL EDWARD Work Phone: [facility] 12-24-2023 12:16-0400 Respiratory rate 18 /min MD MONTRELL EDWARD Work Phone: [facility] 12-24-2023 12:16-0400 SaO2% (BldA) [Mass fraction] 96 % MD MONTRELL EDWARD Work Phone: [facility] 12-24-2023 12:16-0400 Systolic blood pressure 144 mm[Hg] MD MONTRELL EDWARD Work Phone: [facility] 12-24-2023 06:00-0400 Body weight 88.54 kg MD MONTRELL EDWARD Work Phone: [facility] 12-22-2023 21:25-0500 Body height 182.88 cm MD MONTRELL EDWARD Work Phone: [facility] 06-02-2023 15:44-0400 Body temperature 97.5 [degF] [facility] Work Phone: [facility] 06-02-2023 15:44-0400 Diastolic blood pressure 93 mm[Hg] [facility] 06-02-2023 15:44-0400 Heart rate 72 /min [facility] Work Phone: [facility] 06-02-2023 15:44-0400 Respiratory rate 18 /min [facility] Work Phone: [facility] 06-02-2023 15:44-0400 SaO2% (BldA) [Mass fraction] 99 % [facility] 06-02-2023 15:44-0400 Systolic blood pressure 169 mm[Hg] XIAO GALI Work Phone: [facility] 06-02-2023 05:40-0400 Body weight 86.78 kg XIAO VALENTINE Work Phone: [facility] 06-01-2023 01:20-0400 Body height 182.88 cm XIAO VALENTINE Work Phone: [facility] 09-01-2022 14:45-0500 Diastolic blood pressure 105 mm[Hg] LINDSEY LANDAVERDE Work Phone: [facility] 09-01-2022 14:45-0500 Heart rate 78 /min LINDSEY LANDAVERDE Work Phone: [facility] 09-01-2022 14:45-0500 SaO2% (BldA) [Mass fraction] 96 % LINDSEY LANDAVERDE Work Phone: [facility] 09-01-2022 14:45-0500 Systolic blood pressure 161 mm[Hg] LINDSEY LANDAVERDE Work Phone: [facility] 09-01-2022 05:48-0500 Respiratory rate 16 /min LINDSEY LANDAVERDE Work Phone: [facility] 08-31-2022 23:52-0500 Body weight 86.18 kg LINDSEY LANDAVERDE Work Phone: [facility] 06-13-2021 11:01-0400 Diastolic blood pressure 89 mm[Hg] Ney Jonasette DO Work Phone: [facility] 06-13-2021 11:01-0400 Heart rate 77 /min Ney Couette DO Work Phone: [facility] 06-13-2021 11:01-0400 Respiratory rate 14 /min Ney Couette DO Work Phone: [facility] 06-13-2021 11:01-0400 SaO2% (BldA) [Mass fraction] 96 % Ney Couette DO Work Phone: [facility] 06-13-2021 11:01-0400 Systolic blood pressure 151 mm[Hg] Ney Gray DO Work Phone: [facility] 06-13-2021 09:30-0400 Body height 182.9 cm Ney rGay DO Work Phone: [facility] 06-13-2021 09:30-0400 Body mass index (BMI) [Ratio] 27.4 kg/m2 Ney Gray DO Work Phone: [facility] 06-13-2021 09:30-0400 Body temperature 98.01 [degF] Ney Gray DO Work Phone: [facility] 06-13-2021 09:30-0400 Body weight 91.63 kg Ney Gray DO Work Phone: [facility] 04-27-2020 11:43-0400 Diastolic blood pressure Gorge Colon [facility] Encounters Encounter Date Encounter Type Care Provider Facility Start: 07-28-2025 Xiaopatel Valentine [place] [facility] [place] [place] [facility] Start: 07-23-2025 Namrata Trujillo [place] [facility] - [facility] 11 Start: 07-19-2025 End: 07-22-2025 Evaluation and management of inpatient RL MARTINES MD [facility] Start: 06-30-2025 Home visit est pt mod-hi severity 40 minutes Xiao Mem[facility]renoson [place] [place] [facility] Start: 06-30-2025 Xiao Valentine [place] [facility] [facility] [place] [facility] Start: 05-12-2025 Xiao Barraza [place] [place] [facility] Start: 05-02-2025 ambulatory [facility] Facility:[facility] Start: 04-30-2025 ambulatory [facility] Facility:[facility] Start: 04-28-2025 Home visit est pt mod-hi severity 40 [facility] [place] [facility] [place] [place] [facility] Start: 04-28-2025 [facility] [place]: [facility] [facility] [place] 13 Start: 02-24-2025 [facility] [place]: [facility] [place] [facility] Start: 11-06-2024 ambulatory [facility] Facility:[facility] Start: 10-30-2024 ambulatory [facility] Facility:[facility] Start: 10-22-2024 End: 10-24-2024 Evaluation and management of inpatient MONTRELL EDWARD MD Work Phone: [facility] Start: 09-18-2024 ambulatory [facility] Facility:[facility] Start: 12-27-2023 Registered Referred MD MONTRELL EDWARD Work Phone: [facility] Start: 12-22-2023 End: 12-24-2023 Evaluation and management of inpatient MD MONTRELL EDWARD Work Phone: [facility] Start: 12-22-2023 End: 12-24-2023 observation encounter MD MONTRELL EDWARD Work Phone: [facility] Work Phone: Start: 06-01-2023 End: 06-02-2023 Evaluation and management of inpatient XIAO VALENTINE Work Phone: [facility] Start: 09-29-2022 End: 09-29-2022 ambulatory MYNOR MD CARLOS [facility] includes the [facility] Start: 08-31-2022 End: 09-01-2022 Emergency department patient visit LINDSEY LANDAVERDE Work Phone: [facility]-ED Start: 06-13-2021 End: 06-13-2021 Emergency department patient visit Ney Gray DO Work Phone: [facility] Comment on above: ZAY (acute kidney in jury) ([facility]) (Primary Dx); Dehydration; Dementia without behavioral disturbance, unspecified dementia type ([facility]) Start: 08-07-2020 End: 08-07-2020 Subsequent hospital visit by physician Angelo Estrella Work Phone: [facility] Comment on above: Obstructive sleep ap corazon Start: 08-03-2020 End: 08-03-2020 Subsequent hospital visit by physician Angelo Estrella Work Phone: [facility] Comment on above: Obstructive sleep ap corazon Start: 06-25-2020 End: 06-25-2020 Subsequent hospital visit by physician Angelo Estrella Work Phone: [facility] Comment on above: Altered mental statu s, unspecified altered mental status type; Obstructive sleep apnea Start: 06-25-2020 End: 06-25-2020 Subsequent hospital visit by physician Angelo Estrella Work Phone: [facility] At [facility] Comment on above: Altered mental statu s, unspecified altered mental status type; Obstructive sleep apnea Start: 06-10-2020 End: 06-10-2020 Subsequent hospital visit by physician Angelo Estrella Work Phone: [facility] Comment on above: Altered mental statu s, unspecified altered mental status type; Obstructive sleep apnea Start: 05-22-2020 End: 05-22-2020 Subsequent hospital visit by physician Jacquie Asencio Work Phone: [facility] Comment on above: Type 2 diabetes makeda itus without complication, without long- term current use of insulin (HCC); Dementia without behavioral disturbance, unspecified dementia type (HCC); Confusion Start: 04-27-2020 End: 04-27-2020 Subsequent hospital visit by physician Gorge Colon Work Phone: [phone] [facility] Comment on above: Type 2 diabetes makeda itus without complication, without long- term current use of insulin (HCC); Dizziness; 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 Start: 04-24-2020 End: 04-24-2020 Subsequent hospital visit by physician Gorge Colon Work Phone: [facility] Comment on above: Dizziness Start: 04-24-2020 End: 04-24-2020 Subsequent hospital visit by physician Gorge Colon Work Phone: [facility] Comment on above: Coronary artery dise ase 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 Start: 04-27-2017 End: 04-28-2017 Ambulatory KOKI LORA([facility]) [facility] Start: 04-27-2017 End: 04-27-2017 Ambulatory KOKI LORA([facility]) [facility] Procedures Date Procedure Procedure Detail Performing Clinician Start: 07-21-2025 X-ray of chest anteroposterior view JAEL ANDERSD DO Start: 07-19-2025 CT cervical spine without contrast JAEL ANDERSD DO Start: 07-19-2025 CT of brain without contrast JAEL BarrazaD DO Start: 07-19-2025 Electrocardiographic procedure JAEL ASHLEY DO Start: 07-19-2025 X-ray of chest anteroposterior view JAEL ANDERSD DO Start: 10-22-2024 CT of brain without contrast MONTRELL SERVIN MD Work Phone: Start: 10-22-2024 X-ray of chest anteroposterior view MONTRELL EDWARD MD Work Phone: Start: 10-22-2024 Electrocardiographic procedure MONTRELL MARTÍNEZ MD Work Phone: Start: 12-22-2023 CT of brain without contrast MD MONTRELL EDWARD Work Phone: Start: 12-22-2023 X-ray of chest anteroposterior view MD MONTRELL EDWARD Work Phone: Start: 06-05-2023 Aftercare Xiao Valentine Start: 06-02-2023 Barium swallow XIAO MEMBRENO Work Phone: Start: 06-02-2023 Radiography of gastrointestinal tract XIAO [facility] Work Phone: Start: 06-02-2023 Echocardiography XIAO [facility] Work Phone: Start: 06-01-2023 Ultrasonography of bilateral kidneys XIAO [facility] Work Phone: Start: 05-31-2023 X-ray of chest anteroposterior view XIAO [facility] Work Phone: Start: 05-31-2023 Electrocardiographic procedure XIAO [facility] Work Phone: Start: 09-01-2022 CT of abdomen and pelvis without contrast LINDSEY LANDAVERDE Work Phone: Start: 09-01-2022 X-ray of chest anteroposterior view LINDSEY LANDAVERDE Work Phone: Start: 09-01-2022 MRI of lumbar spine without contrast LINDSEY LANDAVERDE Work Phone: Start: 06-13-2021 Basic metabolic panel calcium total Ney Gray DO Work Phone: Start: 06-13-2021 CBC W Auto Differential panel - Blood Ney Gray DO Work Phone: Start: 06-13-2021 GLOMERULAR FILTRATION RATE Ney sung DO Work Phone: Start: 06-25-2020 Mri brain brain stem w/o contrast material Angelo Estrella Work Phone: Start: 06-19-2020 Adult depression screening assessment Angelo Estrella Start: 06-10-2020 25 hydroxy includes fractions if performed Angelo Estrella Work Phone: Start: 06-10-2020 Antibody treponema pallidum Angelo moreira Work Phone: Start: 06-10-2020 Assay of folic acid serum Angelo chang Work Phone: Start: 06-10-2020 Assay of free thyroxine Angelo Estrella Work Phone: Start: 06-10-2020 Assay of triiodothyronine t3 free Angelo Estrella Work Phone: Start: 06-10-2020 Cyanocobalamin vitamin b-12 Angelo moreira Work Phone: Start: 06-10-2020 Sedimentation rate rbc automated Angelo Estrella Work Phone: Start: 06-04-2020 Ophthalmic examination and evaluation Angelo Estrella Start: 05-22-2020 Assay of thyroid stimulating hormone tsh Jacquie Asencio Work Phone: Start: 05-22-2020 CBC WITH DIFFERENTIAL Jacquie Asencio Work Phone: Start: 05-22-2020 Comprehensive metabolic panel Jacquie everett Work Phone: Start: 05-22-2020 Cyanocobalamin vitamin b-12 Jacquie Frank ivan Work Phone: Start: 05-22-2020 GLOMERULAR FILTRATION RATE Jacquie nix Work Phone: Start: 05-22-2020 Hemoglobin A1c/Hemoglobin.total in Blood Jacquie Asencio Work Phone: Start: 05-22-2020 Lipid panel Jacquie Asencio Work Phone: Start: 05-22-2020 Adult depression screening assessment Jacquie Asencio Start: 05-22-2020 Lipid 1996 panel - Serum or Plasma Angelo Amesmarycruz Start: 05-19-2020 3 comp foot exam completed Angelo Ruanoritu joel Start: 04-27-2020 Echo tthrc r-t 2d w/wom-mode compl spec&colr d Gorge Colon Work Phone: Start: 03-25-2020 Adult depression screening assessment Gorge Colon Start: 05-27-2019 Ophthalmic examination and evaluation Gorge Colon Start: 11-19-2018 Lipid 1996 panel - Serum or Plasma Gorge Colon Start: 08-16-2017 3 comp foot exam completed Gorge Pietrotracie Plan of Treatment Date Care Activity Detail Author Start: 12-15-2027 Diphtheria + pertussis + tetanus vaccine (product) [facility] Start: 07-28-2025 Admission to establishment AL/IL/[id number] - [facility] Start: 07-19-2025 Resuscitation [facility] Start: 07-19-2025 Hospital admission, emergency, from emergency room [facility] Start: 05-22-2025 Fasting lipid profile LIPID SCREENING [facility] Start: 10-22-2024 Hospital admission, emergency, from emergency room [facility] Start: 10-22-2024 Resuscitation [facility] Start: 04-09-2024 Colonoscopy COLONOSCOPY 10 YR [facility] Start: 04-09-2024 Screening for malignant neoplasm of colon [facility] Start: 12-22-2023 Hospital admission, emergency, from emergency room [facility] Start: 12-22-2023 Resuscitation [facility] Start: 12-22-2023 Electrocardiographic procedure EKG [facility] Start: 11-19-2023 Fasting lipid profile LIPID SCREENING [facility] Start: 06-02-2023 Consultation [facility] Start: 06-02-2023 [facility] Start: 06-01-2023 EKG study [facility] Start: 06-01-2023 Electrocardiographic procedure EKG [facility] Start: 06-01-2023 Hospital admission, emergency, from emergency room [facility] Start: 06-01-2023 Resuscitation [facility] Start: 09-01-2022 [facility] Start: 09-01-2022 Electrocardiographic procedure EKG [facility] Start: 06-13-2022 Renal function test NOS RENAL PROFILE [facility] System Start: 06-10-2022 Injection of vitamin B12 B12 Formerly named [facility] Start: 06-04-2022 Glaucoma screening GLAUCOMA/EYE EXAM AGE 65+ [facility] Start: 05-22-2022 Injection of vitamin B12 B12 Formerly named [facility] Start: 02-09-2022 End: 02-09-2022 Patient encounter procedure 02/09/2022 Office Visit Cardiology [facility] Start: 06-19-2021 Adult depression screening assessment DEPRESSION SCREENING [facility] Start: 06-19-2021 Depression screening using PHQ-9 (Patient Health Questionnaire 9) score DEPRESSION SCREENING [facility] Start: 06-19-2021 Nephropathy screening MICROALBUMINURIA [facility] Start: 06-19-2021 Urine screening for protein MICROALBUMINURIA [facility] Start: 06-16-2021 Influenza vaccination given INFLUENZA VACCINE (#1) [facility] Start: 06-04-2021 Ophthalmic examination and evaluation OPHTHALMOLOGY EXAM [facility] Start: 05-22-2021 Adult depression screening assessment DEPRESSION SCREENING [facility] Start: 05-22-2021 Lipid panel LIPIDS [facility] Start: 05-22-2021 Renal function test NOS RENAL PROFILE [facility][note 2] System Start: 05-19-2021 Diabetic foot examination FOOT EXAM [facility] Start: 05-06-2021 Adult depression screening assessment DEPRESSION SCREENING [facility] Start: 03-25-2021 Adult depression screening assessment DEPRESSION SCREENING [facility] Start: 09-18-2020 End: 09-18-2020 Office Visit 09/18/2020 Office Visit Family Medicine Jacquie Asencio PA-C [address] [place] [address] [place] [address] [phone] [facility] [address] ADULT Start: 09-09-2020 End: 09-09-2020 Office Visit [facility] Start: 08-22-2020 HbA1c (Bld) [Mass fraction] HEMOGLOBIN A1C [facility] Start: 08-22-2020 Hemoglobin A1c measurement H[facility]OGLOBIN A[facility]C [facility] Start: 08-10-2020 End: 08-10-2020 Office Visit 08/10/2020 Office Visit Cardiology [facility] Start: 08-07-2020 End: 08-07-2020 Appointment 08/07/2020 Appointment Sleep Medicine Angelo Estrella MD [address], [place] [address] [phone] [facility] Start: 06-27-2020 End: 06-27-2020 Appointment 06/27/2020 Appointment Sleep Angelo Dey MD [address], [place] [address] [phone] [facility] Start: 06-25-2020 End: 06-25-2020 Appointment [facility] Start: 06-19-2020 End: 06-19-2020 Office Visit 06/19/2020 Office Visit Family Medicine Jacquie Asencio PA-C [address] [place] [address] [phone] [facility] [address] ADULT Start: 06-16-2020 Influenza vaccination given INFLUENZA VACCINE (#1) [facility] Start: 05-27-2020 Ophthalmic examination and evaluation OPHTHALMOLOGY EXAM [facility] Start: 05-16-2020 Nephropathy screening MICROALBUMINURIA [facility] Start: 05-06-2020 End: 05-06-2020 Office Visit [facility] [address] ADULT Start: 04-27-2020 End: 04-27-2020 Appointment 04/27/2020 Appointment Heart and Vascular Diagnostics Gorge Colon MD [address] [place] [address] [phone] [facility] Start: 11-19-2019 Lipid panel LIPIDS [facility] Start: 11-19-2019 Renal function test NOS RENAL PROFILE [facility][note 2] System Start: 10-26-2019 Injection of vitamin B12 B12 Formerly named [facility] Start: 08-16-2019 Glaucoma screening GLAUCOMA/EYE EXAM AGE 65+ [facility] Start: 08-16-2019 HbA1c (Bld) [Mass fraction] HEMOGLOBIN A1C [facility] Start: 08-16-2018 Diabetic foot examination FOOT EXAM [facility] Start: 07-28-2018 Fall risk assessment FALL RISK [facility] Start: 07-28-2018 Pneumococcal polysaccharide vaccine (product) PNEUMONIA VACCINE (PCV13 PPSV23) (2 of 2 - PPSV23) [facility] Start: 1992 Screening for malignant neoplasm of colon [facility] Start: 1992 Zoster vaccine hzv live for subcutaneous use ZOSTER (SHINGLES) VACCINE (1 of 2) [facility] Start: 1960 ANNUAL WELLNESS VISIT ANNUAL WELLNESS VISIT [facility] End: 06-10-2020 [place] [facility] [place] [facility] Routine Altered mental status, unspecified altered mental status type Obstructive sleep apnea 1 Occurrences starting 06/10/2020 until 06/10/2020 [facility] Comment on above: 1 Occurrences starting 06/10/2020 until 06/10/2020 [place] [facility] [place] [facility] Routine Altered mental status, unspecified altered mental status type Obstructive sleep apnea 06/10/2020 9:47 AM EDT [facility] Anion gap measurement [facility] Basic metabolic 1997 panel - Serum or Plasma [facility] Basophil percent differential count [facility] Blood chemistry [facility] Calcium measurement [facility] Carbon dioxide, tota l [Moles/volume] in Serum or Plasma [facility] Chloride [Moles/volu me] in Serum or Plasma [facility] Comprehensive metabo lic 1999 panel - Serum or Plasma [facility] Creatinine [Mass/vol ume] in Serum or Plasma [facility] End: 06-25-2020 EEG EEG Neurology Routine Altered mental status, unspecified altered mental status type Obstructive sleep apnea 1 Occurrences starting 06/25/2020 until 06/25/2020 [facility] Comment on above: 1 Occurrences starting 06/25/2020 until 06/25/2020 Eosinophil percent differential count [facility] Eosinophils [#/volum e] in Blood [facility] Ferritin [Mass/volum e] in Serum or Plasma [facility] Glomerular filtratio n rate/1.73 sq M.predicted among blacks [Volume Rate/Area] in Serum, Plasma or Blood by Creatinine-based formula (CKD-EPI) [facility] Glomerular filtratio n rate/1.73 sq M.predicted among non-blacks [Volume Rate/Area] in Serum, Plasma or Blood by Creatinine-based formula (CKD-EPI) [facility] Glucose [Mass/volume ] in Serum or Plasma [facility] Hematocrit [Volume F raction] of Blood [facility] Hemoglobin [Mass/vol ume] in Blood [facility] Hemoglobin A1c [Mass /volume] in Blood [facility] End: 04-24-2020 Holter Monitor complete <48 hours Order Holter Monitor complete <48 hours Order Cardiac Services Routine Dizziness 1 Occurrences starting 04/24/2020 until 04/24/2020 [facility] Comment on above: 1 Occurrences starting 04/24/2020 until 04/24/2020 Holter Monitor compl ete <48 hours Order Holter Monitor complete <48 hours Order Cardiac Services Routine Dizziness 04/24/2020 1:24 PM EDT [facility] Iron [Mass/volume] i n Serum or Plasma [facility] Iron binding capacit y [Mass/volume] in Serum or Plasma [facility] Iron binding capacity.unsaturated [Mass/volume] in Serum or Plasma [facility] Iron saturation [Mas s Fraction] in Serum or Plasma [facility] Leukocytes [#/volume ] in Blood [facility] Lymphocyte count [facility] Lymphocyte percent differential count [facility] Mean corpuscular hem oglobin concentration determination [facility] Mean corpuscular hem oglobin determination [facility] Monocyte count [facility] Monocyte percent differential count [facility] Neutrophil count [facility] End: 04-24-2020 Nuclear Stress Test - Pharmacological Nuclear Stress Test - Pharmacological Cardiac Services Routine 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 1 Occurrences starting 04/24/2020 until 04/24/2020 [facility] Comment on above: 1 Occurrences starting 04/24/2020 until 04/24/2020 Nuclear Stress Test - Pharmacological Nuclear Stress Test - Pharmacological Cardiac Services Routine 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 04/24/2020 1:37 PM EDT [facility] Patient Education [facility] Work Phone: Patient referral [facility] Work Phone: Platelet mean volume determination [facility] Platelets [#/volume] in Blood [facility] End: 08-07-2020 Polysomnography 4 or more parameters with CPAP Polysomnography 4 or more parameters with CPAP Sleep Center Routine Obstructive sleep apnea 1 Occurrences starting 08/07/2020 until 08/07/2020 [facility] Comment on above: 1 Occurrences starting 08/07/2020 until 08/07/2020 Potassium [Moles/vol ume] in Serum or Plasma [facility] Procalcitonin [Mass/ volume] in Serum or Plasma [facility] Red blood cell count [facility] Red cell distributio n width determination [facility] End: 08-03-2020 SARS-COV-2, qPCR ([facility]) SARS-COV-2, qPCR ([facility]) Microbiology Routine One Time for 1 Occurrences starting 08/03/2020 until 08/03/2020 [facility] Comment on above: One Time for 1 Occurrences starting 07/16 until 08/03/2020 SARS-COV-2, qPCR ([facility]) SARS-COV-2, qPCR ([facility]) Microbiology Routine 08/03/2020 1:57 PM EDT [facility] Segmented neutrophil count, blood [facility] Sodium [Moles/volume ] in Serum or Plasma [facility] End: 06-10-2020 TDP (Vitamin B1, whole blood) TDP (Vitamin B1, whole blood) Lab Routine Altered mental status, unspecified altered mental status type Obstructive sleep apnea 1 Occurrences starting 06/10/2020 until 06/10/2020 [facility] Comment on above: 1 Occurrences starting 06/10/2020 until 06/10/2020 TDP (Vitamin B1, who le blood) TDP (Vitamin B1, whole blood) Lab Routine Altered mental status, unspecified altered mental status type Obstructive sleep apnea 06/10/2020 9:47 AM EDT [facility] Urea nitrogen [Mass/ volume] in Serum or Plasma [facility] Urea nitrogen/Creati nine [Mass Ratio] in Serum or Plasma [facility] End: 05-22-2020 Urine culture and sensitivity Urine culture and sensitivity Microbiology Routine Confusion 1 Occurrences starting 05/22/2020 until 05/22/2020 [facility] Comment on above: 1 Occurrences starting 05/22/2020 until 05/22/2020 Urine culture and sensitivity Urine culture and sensitivity Microbiology Routine Confusion 05/22/2020 4:08 PM EDT [facility] End: 06-10-2020 Vitamin E Vitamin E Lab Routine Altered mental status, unspecified altered mental status type Obstructive sleep apnea 1 Occurrences starting 06/10/2020 until 06/10/2020 [facility] Comment on above: 1 Occurrences starting 06/10/2020 until 06/10/2020 Vitamin E Vitamin E Lab Ro utine Altered mental status, unspecified altered mental status type Obstructive sleep apnea 06/10/2020 9:47 AM EDT [facility] Immunizations Immunization Date Immunization Notes Care Provider Trey omalley 06-05-2025 Seasonal trivalent influenza vaccine, adjuvanted, preservative free JAEL ASHLEY [facility] 07-17-2024 COVID-19, mRNA, LNP- S, PF,50mcg/0.5 mL 12yrUP MONTRELL EDWARD MD Work Phone: [facility] 07-17-2024 SARS-COV-2 (COVID-19 ) vaccine, mRNA, spike protein, LNP, bivalent, preservative free, 50 mcg/0.5 mL dose Xiao Valentine [place] - [facility] 07-17-2024 Seasonal trivalent influenza vaccine, adjuvanted, preservative free MONTRELL EDWARD MD Work Phone: [facility] 08-09-2023 COVID-19 mRNA 12yr Up,Mt-sucrose 3mcg/0.3 MONTRELL EDWARD MD Work Phone: [facility] 08-09-2023 influenza, injectabl e, quadrivalent, preservative free MONTRELL EDWARD MD Work Phone: [facility] 03-02-2022 COVID-19 VACCINE (Zkatter) XIAO VALENTINE Work Phone: [facility] 08-16-2021 COVID-19 VACCINE (Pfizer-BioNtech) [facility] 08-16-2021 influenza, injectabl e, quadrivalent, preservative free [facility] Work Phone: [facility] 11-16-2020 COVID-19 VACCINE (Pfizer-BioNtech) [facility] 10-26-2020 COVID-19 VACCINE (Pfizer-BioNtech) [facility] Work Phone: [facility] 07-10-2020 Seasonal, quadrivale nt, recombinant, injectable influenza vaccine, preservative free [facility] Work Phone: [facility] 05-22-2020 HEMOGLOBIN A1C [facility] 08-04-2019 influenza, high dose seasonal, preservative-free XIAO ESC Work Phone: [facility] 08-04-2019 influenza, seasonal, injectable [facility] 08-04-2019 pneumococcal polysaccharide vaccine, 23 valent [facility] 08-04-2019 influenza virus vacc ine, unspecified formulation [facility] 05-16-2019 HEMOGLOBIN A1C [facility] 07-31-2018 influenza virus vacc ine, unspecified formulation [facility] 12-14-2017 tetanus toxoid, redu tiana diphtheria toxoid, and acellular pertussis vaccine, adsorbed [facility] 07-28-2017 influenza, seasonal, injectable [facility] 07-24-2015 influenza, high dose seasonal, preservative-free XIAO [facility] Work Phone: [facility] 07-24-2015 influenza, seasonal, injectable [facility] 07-24-2015 pneumococcal vaccine , unspecified formulation [facility] 10-01-2009 novel influenza-H1N1 -09, preservative-free, injectable [facility] Payers Date Payer Category Payer Unknown [id number] 2019 Unknown [id number] 2007 Medicare [id number] 2007 Medicare [id number] 2007 Medicare [id number] 1940 Unknown [id number] [id number] Medicare [id number] Medicare [id number] Unknown [id number] Unknown OTHER COMMERCIAL [id number] Unknown [id number] 2.16.8 [id number] Unknown [id number] 2.16.8 [id number] Unknown [id number] 2.16.8 [id number] Unknown [id number] 2.16.8 [id number] Unknown [id number] 2.16.8 [id number] Unknown [id number] 2.16.8 [id number] Unknown [id number] 2.16.8 [id number] Social History Date Type Detail Facility Start: 04-08-2020 End: 07-20-2025 Tobacco smoking status NHIS Former smoker [facility] Start: 02-07-2012 End: 04-08-2020 Cigarettes smoked current (pack per day) - Reported [facility] Start: 02-07-2012 End: 04-08-2020 Tobacco use and exposure Never used Formerly named [facility] Start: 04-08-2020 End: 02-09-2021 Alcohol intake Current non-drinker of alcohol (finding) [facility] Start: 02-07-2012 Tobacco Comment quit 1964 [facility] Start: 1940 Sex Assigned At Not on file [facility] Exposure to SARS-CoV -2 (event) Not sure [facility] Start: 1940 Sex Assigned At Male [facility] Start: 09-01-2022 End: 10-23-2024 Tobacco smoking status NHIS Never smoked tobacco (finding) [facility] Start: 09-01-2022 Never [facility] Start: 09-01-2022 No [facility] Start: 10-24-2024 End: 10-28-2024 Sex Male (finding) [facility] Gender Identity Cisgender/Not transgender (finding) [facility] Sexual Orientation Heterosexual (finding) [facility] Start: 07-19-2025 Social Determinants of Health Social Determinants of Health [facility] Work Phone: Medical Equipment Procedure Code Equipment Code Equipment Origin al Text Equipment Identifier Dates Implant ([id number]) [id number] Start: 03-12-2020 Test once daily Diagnosis: Type 2 DM 250.00 (ICD-10 E11.9) Length of need lifetime. Katelynn lancets. [id number] Start: 03-12-2020 Goals Date Patient Goal Desired Activity /State Functional Status Date Assessment Result Facility 07-22-2025 Functional status Independent;St andby Assistance [facility] Work Phone: 07-21-2025 Functional status Oral Expressio n Ability No Impairment [facility] Work Phone: 10-24-2024 Functional status Independent [facility] Work Phone: 10-24-2024 Functional status Barriers to Le arning Age related [facility] Work Phone: 10-23-2024 Functional status Oral Expressio n Ability No Impairment [facility] Work Phone: 12-24-2023 Functional status [facility] Work Phone: 12-22-2023 Functional status Oral Expressio n Ability No Impairment [facility] Work Phone: 06-02-2023 Functional status Independent;1 person as sist [facility] Work Phone: 06-01-2023 Functional status Barriers to Le arning Age related [facility] Work Phone: 06-01-2023 Functional status Oral Expressio n Ability No Impairment [facility] Work Phone: Mental Status Date Assessment Result Facility 07-22-2025 Cognitive function Name [facility] Work Phone: 07-21-2025 Cognitive function Comprehension Ability No Impairment [facility] Work Phone: 10-24-2024 Cognitive function Level Of Cons ciousness Awake;Alert;Appropriate [facility] Work Phone: 10-23-2024 Cognitive function Name [facility] Work Phone: 10-23-2024 Cognitive function Comprehension Ability No Impairment [facility] Work Phone: 12-24-2023 Cognitive function Level Of Cons ciousness Awake;Alert;Appropriate;Follow s Commands [facility] Work Phone: 12-24-2023 Cognitive function Arousable To Name [facility] Work Phone: 12-23-2023 Cognitive function Memory Description Int act [facility] Work Phone: 12-22-2023 Cognitive function Comprehension Ability Mild Impairment [facility] Work Phone: 06-02-2023 Cognitive function Level Of Cons ciousness Awake;Alert;Appropriate;Follow s Commands [facility] Work Phone: 06-02-2023 Cognitive function Arousable To Name [facility] Work Phone: 06-01-2023 Cognitive function Memory Description Int act [facility] Work Phone: 06-01-2023 Cognitive function Comprehension Ability No Impairment [facility] Work Phone: 09-01-2022 Cognitive function Level Of Cons ciousness Awake;Alert;Appropriate;Follow s Commands [facility] Work Phone: Clinical Notes 06-13-2021 to 07-28-2025 Note Date & Type Note Facility 07-28-2025 Evaluation note Encounter Date Assessment Date Assessment LastModified by Medications hydrocodone 5 mg-acetaminophen 325 mg tablet acetaminophen 500 mg tablet hydrocodone 5 mg-acetaminophen 325 mg tablet aspirin 81 mg tablet,delayed release Cefdinir (Omnicef 300 Mg Capsule) 300 MG Capsule Cyanocobalamin (Vitamin B-12) (Vitamin B12) 5,000 MCG Tab.Chew Cyanocobalamin (Vitamin B-12) (Vitamin B-12 500 Mcg Tablet) 500 MCG Tablet Cholecalciferol (Vitamin D3) (Vitamin D3 1000 Unit Tablet) 1,000 UNIT Tablet dexlansoprazole 60 mg capsule,biphase delayed release furosemide 20 mg tablet tizanidine 2 mg tablet esomeprazole magnesium 40 mg capsule,delayed release divalproex 125 mg tablet,delayed release donepezil 5 mg tablet tamsulosin 0.4 mg capsule fenofibrate nanocrystallized 145 mg tablet finasteride 5 mg tablet Cimetidine 400 MG Tablet 400 MG PO Two Times A Day Lactobacillus Acidophilus (Acidophilus) 100 MG Capsule 100 MG PO Daily Pravastatin Sodium 10 MG Tablet 80 MG PO Bedtime Hydralazine Hcl 25 MG Tablet 12.5 MG PO Three Times A Day Cefdinir (Omnicef 300 Mg Capsule) 300 MG Capsule 300 MG PO Two Times A Day Labs CBC (07/22/25): WBC 4.4, HGB 11, HCT 33.3, PLT 254 CBC (10/24/24): WBC 5.6, HGB --, HCT 36.6, PLT 264 CBC (09/18/24): WBC 6.6, HGB --, HCT 39.9, PLT 311 BMP (07/22/25): Na+ 140, K+ 4.1, Cl- 106, Total CO2 27, BUN 24.6, Cr 1.3, GLUC 114 BMP (11/06/24): Na+ 143, K+ 4.3, Cl- 106, Total CO2 28, BUN 20.5, Cr 1.6, GLUC -- BMP (10/24/24): Na+ 142, K+ 4.5, Cl- 107, Total CO2 30, BUN 21.2, Cr 1.46, GLUC -- LFT (07/22/25): Total Protein 6, Albumin 2.6, Total Bilirubin 0.31, Direct Bilirubin --, AST 38, ALT 33, Alk Phos 42 LFT (12/22/23): Total Protein 7.2, Albumin --, Total Bilirubin --, Direct Bilirubin --, AST --, ALT --, Alk Phos -- LFT (05/31/23): Total Protein 6.7, Albumin --, Total Bilirubin --, Direct Bilirubin --, AST --, ALT --, Alk Phos -- Lipids (03/20/24): CHOL 170, TRIG 256, HDL 36, LDL 2.3 Lipids (10/04/23): CHOL 173, TRIG 244, HDL 35, LDL -- Lipids (05/22/20): CHOL 172, TRIG 283, HDL 29.9, LDL -- A1c (10/24/24): 6.4 A1c (03/20/24): 6.4 A1c (10/04/23): 6 PT/INR (07/19/25): PT 10.3, INR 1 PT/INR (10/22/24): PT 10.7, INR 1 PT/INR (08/25/21): PT 9.7, INR 1 Vit D (06/10/20): 25.9 Mag (07/21/25): 1.9 Mag (10/23/24): 1.9 Mag (12/23/23): 1.8 BNP (07/21/25): 261 TSH (07/20/25): 0.372236 TSH (10/22/24): 0.602112 TSH (10/04/23): 0.752440 Recent Imaging Diagnostic radiology report 07/21/25 Diagnostic radiology report 07/19/25 Cardiac Testing EKG report 07/19/25 None recorded Not available 07/30/2025 18:08:45 [place] [facility] 10-08-2025 Evaluation note* Encounter Date Assessment Date Assessment LastModified by Organization Details LastModified Time 07/23/2025 07/23/2025 Medications hydrocodone 5 mg-acetaminophen 325 mg tablet acetaminophen 500 mg tablet hydrocodone 5 mg-acetaminophen 325 mg tablet aspirin 81 mg tablet,delayed release Cefdinir (Omnicef 300 Mg Capsule) 300 MG Capsule Cyanocobalamin (Vitamin B-12) (Vitamin B12) 5,000 MCG Tab.Chew Cyanocobalamin (Vitamin B-12) (Vitamin B-12 500 Mcg Tablet) 500 MCG Tablet Cholecalciferol (Vitamin D3) (Vitamin D3 1000 Unit Tablet) 1,000 UNIT Tablet dexlansoprazole 60 mg capsule,biphase delayed release furosemide 20 mg tablet tizanidine 2 mg tablet esomeprazole magnesium 40 mg capsule,delayed release divalproex 125 mg tablet,delayed release donepezil 5 mg tablet tamsulosin 0.4 mg capsule fenofibrate nanocrystallized 145 mg tablet finasteride 5 mg tablet Cimetidine 400 MG Tablet 400 MG PO Two Times A Day Lactobacillus Acidophilus (Acidophilus) 100 MG Capsule 100 MG PO Daily Pravastatin Sodium 10 MG Tablet 80 MG PO Bedtime Hydralazine Hcl 25 MG Tablet 12.5 MG PO Three Times A Day Cefdinir (Omnicef 300 Mg Capsule) 300 MG Capsule 300 MG PO Two Times A Day Labs CBC (07/22/25): WBC 4.4, HGB 11, HCT 33.3, PLT 254 CBC (10/24/24): WBC 5.6, HGB --, HCT 36.6, PLT 264 CBC (09/18/24): WBC 6.6, HGB --, HCT 39.9, PLT 311 BMP (07/22/25): Na+ 140, K+ 4.1, Cl- 106, Total CO2 27, BUN 24.6, Cr 1.3, GLUC 114 BMP (11/06/24): Na+ 143, K+ 4.3, Cl- 106, Total CO2 28, BUN 20.5, Cr 1.6, GLUC -- BMP (10/24/24): Na+ 142, K+ 4.5, Cl- 107, Total CO2 30, BUN 21.2, Cr 1.46, GLUC -- LFT (07/22/25): Total Protein 6, Albumin 2.6, Total Bilirubin 0.31, Direct Bilirubin --, AST 38, ALT 33, Alk Phos 42 LFT (12/22/23): Total Protein 7.2, Albumin --, Total Bilirubin --, Direct Bilirubin --, AST --, ALT --, Alk Phos -- LFT (05/31/23): Total Protein 6.7, Albumin --, Total Bilirubin --, Direct Bilirubin --, AST --, ALT --, Alk Phos -- Lipids (03/20/24): CHOL 170, TRIG 256, HDL 36, LDL 2.3 Lipids (10/04/23): CHOL 173, TRIG 244, HDL 35, LDL -- Lipids (05/22/20): CHOL 172, TRIG 283, HDL 29.9, LDL -- A1c (10/24/24): 6.4 A1c (03/20/24): 6.4 A1c (10/04/23): 6 PT/INR (07/19/25): PT 10.3, INR 1 PT/INR (10/22/24): PT 10.7, INR 1 PT/INR (08/25/21): PT 9.7, INR 1 Vit D (06/10/20): 25.9 Mag (07/21/25): 1.9 Mag (10/23/24): 1.9 Mag (12/23/23): 1.8 BNP (07/21/25): 261 TSH (07/20/25): 0.113089 TSH (10/22/24): 0.426182 TSH (10/04/23): 0.375140 Recent Imaging Diagnostic radiology report 07/21/25 Diagnostic radiology report 07/19/25 Cardiac Testing EKG report 07/19/25 [email or web address] Not available 07/24/2025 11:49:43 [place] - [facility] 10-07-2025 NotePATIENT:WILEY MEEK [id number] LOCATION:ICU I.D.#: [id number] : 1940 AGE: SEX:M DISCHARGED: 07/22/25 ORDERED BY:BRYANNA GAFFNEY MD I Nirmal R O B I O L O G Y Patient: WILEY MEEK [id number] Location: [facility] INT Aount: [id number] : 1940 Age: 85 Sex M Lab NumbEr [id number] Requested by: BRYANNA GAFFNEY Admitdate: 07/19/25 Source: BLOOD Collected: 07/19/25 12:20 Site: [facility] Received : 07/19/25 12:39 AVIVA Kinney O M M E N T S LAB.PORT; Does the Patient have a central line to draw blood from?; N; RUBEN.SITE1; Ruben Site; blood Culture, Blood FINAL 07/25/25 06:45 07/21/25 No growth after 48 hours incubation in aerobic and anaerobic bottle. 07/21/2025 06:13 07/25/25 No growth after 5 days incubation in aerobic and anaerobic bottle. 07/25/2025 06:45 [facility]10-07-2025 NotePATIENT:WILEY MEEK [id number] LOCATION:ICU I.D.#: [id number] : 1940 AGE: SEX:M DISCHARGED: 07/22/25 ORDERED BY:BRYANNA GAFFNEY MD I Florencio L Florencio G Y Patient: WILEY MEEK [id number] Location: [facility] INT Aount: [id number] : 1940 Age: 85 Sex M Lab NumbEr [id number] Requested by: BRYANNA GAFFNEY Admitdate: 07/19/25 Source: BLOOD Collected: 07/19/25 12:30 Site: [facility]O Received : 07/19/25 12:39 AVIVA Chance T S LAB.PORT; Does the Patient have a central line to draw blood from?; N; RUBEN.SITE1; Ruben Site; blood Culture, Blood FINAL 07/25/25 06:45 07/21/25 No growth after 48 hours incubation in aerobic and anaerobic bottle. 07/21/2025 06:13 07/25/25 No growth after 5 days incubation in aerobic and anaerobic bottle. 07/25/2025 06:45 [facility]10-07-2025 NotePATIENT:WILEY MEEK [id number] LOCATION:ICU I.D.#: [id number] : 1940 AGE: SEX:M DISCHARGED: 07/22/25 ORDERED BY:BRYANNA GAFFNEY MD I O L O G Y Patient: WILEY MEEK [id number] Location: [facility] INT Aount: [id number] : 1940 Age: 85 Sex M Lab NumbEr [id number] Requested by: BRYANNA GAFFNEY Admitdate: 07/19/25 Source: BLOOD Collected: 07/19/25 12:20 Site: [facility]O Received : 07/19/25 12:39 AVIVA Pastrana N T S LAB.PORT; Does the Patient have a central line to draw blood from?; N; RUBEN.SITE1; Ruben Site; blood Culture, Blood FINAL 07/25/25 06:45 07/21/25 No growth after 48 hours incubation in aerobic and anaerobic bottle. 07/21/2025 06:13 07/25/25 No growth after 5 days incubation in aerobic and anaerobic bottle. 07/25/2025 06:45 [facility]10-07-2025 NotePATIENT:WILEY MEEK [id number] LOCATION:ICU I.D.#: [id number] : 1940 AGE: SEX:M DISCHARGED: 07/22/25 ORDERED BY:BRYANNA GAFFNEY MD I C R O B I O L O G Y Patient: WILEY MEEK [id number] Location: [facility] INT Aount: [id number] : 1940 Age: 85 Sex M Lab NumbEr [id number] Requested by: BRYANNA GAFFNEY Admitdate: 07/19/25 Source: BLOOD Collected: 07/19/25 12:30 Site: [facility]O Received : 07/19/25 12:39 AVIVA C O M M E N T S LAB.PORT; Does the Patient have a central line to draw blood from?; N; RUBEN.SITE1; Ruben Site; blood Culture, Blood FINAL 07/25/25 06:45 07/21/25 No growth after 48 hours incubation in aerobic and anaerobic bottle. 07/21/2025 06:13 07/25/25 No growth after 5 days incubation in aerobic and anaerobic bottle. 07/25/2025 06:45 [facility]10-07-2025 Discharge summary Author LINDSEY CAVAZOS [facility] Note Date/Time July 22, 2025 10 :49am [facility] [address] [place] [address] HEALTH INFORMATION MANAGEMENT DISCHARGE SUMMARY : [id number] Signed Patient: WILEY MEEK Acct:[id number] MRUN: [id number] : 1940 Sex: M Loc: ICU AD M Date: 07/19/25 Room/Bed: 357-A DISC Date: - Hospital Course Events Since Admission: WILEY MEEK was admitted to MEDICAL SURGICAL service into room 357 on 07/19/25 at 12:38 from Emergency Dept for complaints of METABOLIC ENCEPHALOPATHYGENERALIZED WEAKNESS. Laboratory and diagnostic testing has been reviewed. Thepatient was seen, evaluated and found to be appropriate for discharge. Reason For Visit: METABOLIC ENCEPHALOPATHY GENERALIZED WEAKNESS Hospital Course: Patient is a 85-year-old gentleman admitted with progressive generalized weakness and fall. Assessment on admission came back consistent with COVID-19 admitted to a monitored bed where patient has since been managed 1. Acute metabolic encephalopathy Secondary to COVID-19 pneumonia patient is level of sensorium improved with treatment 2. COVID-19 pneumonia with suspected superimposed bacterial pneumonia with Gram-positive organisms The patient is managed with ceftriaxone as well as azithromycin 3. 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 Home dose continued 5. Dementia Without behavioral agitation patient is on Aricept did continue 6. Dyslipidemia The patient is on fenofibrate 7. Physical deconditioning/debility - Requested for PT/OT eval and treatment. Consult also placed to director social/case management to assist with discharge planning and disposition -plan is for patient to be discharged to his longterm facility 8. GERD - Patient is on PPI, continued 9. DVT prophylaxis - [facility] Treatment: 07/22/25 05:25 07/22/25 05:25 Laboratory Results - last 24 hr 07/22/25 05:25: WBC 4.4, RBC 3.42 L, Hgb 11.0 L, Hct 33.3 L, MCV 97.4 H, MCH 32.2 H, MCHC 33.0, RDW 14.3, Plt Count 254, MPV 9.1, Neut % (Auto) 56.1, Lymph %(Auto) 28.5, [place] % (Auto) 9.1, Eos % (Auto) 5.9 H, Baso % (Auto) 0.2, Abs ImmatGran (man) 0.01, Absolute Neuts (auto) 2.46, Absolute Lymphs (auto) 1.30, Absolute Monos (auto) 0.40, Absolute Eos (auto) 0.30 H, Absolute Basos (auto) 0.01, Immature Gran % 0.20 07/22/25 05:25: Sodium 140, Potassium 4.1, Chloride 106, Total Carbon Dioxide 27, Anion Gap 11.1, BUN 24.6, Creatinine 1.30 H, Est GFR (MDRD) Af Amer > 60, Est GFR (MDRD) Non-Af 53 A, BUN/Creatinine Ratio 19, Glucose 114 H, Calcium 8.7, Total Bilirubin 0.31, AST 38, ALT 33, Alkaline Phosphatase 42 L, Total Protein 6.0 L, Albumin 2.6 L, Globulin 3.4, Albumin/Globulin Ratio 0.8 L Intake & Output 07/19/25 07/20/25 07/21/25 07/22/25 23:59 23:59 23:59 23:59 Intake Total 2282 285 2445 360 Output Total 250 1725 1025 Balance 1300 727 -335 -665 Weight 191 lb 185 lb 14.4 oz 184 lb 4.8 oz 186 lb See radiology reports in electronic medical record. - Problems (1) Essential hypertension Status: Acute Priority: Medium Current Visit: Yes (2) COVID-19 virus infection Status: Acute Current Visit: No - Discharge Information Discharge Diagnosis:: COVID-19 pneumonia Disposition: [facility] Condition: Good Plan of Treatment: as documented above - Discharge Instructions Referrals: JAEL ASHLEY DO [Primary Care Provider, [facility]] - 1 Week -Nurse to Schedule Prescriptions & home med reconciliation (Convert): Cefdinir [Omnicef 300 mg Capsule] 300 mg PO BID #10 capsule Activity Level For Discharge:: As Tolerated Discharge Diet: Low Sodium, Nonconcentrated Sweets Weight Bearing Status: Weight Bearing as Tolerated - ASCVD SCORING Was this patient admitted for chest pain?: No Visit Coding - VISIT CODING Date of Service: 07/22/25 Billing Provider:: LINDSEY CAVAZOS Common Visit Codes: 79707-MUV/OBS DISCH DAY <30MIN Electronically Generated By:LINDSEY CAVAZOS MD Generated Date/Time: 07/22/25 1048 Electronically Signed By: <Electronically signed by LINDSEY CAVAZOS MD> 07/22/25 1049 Co Signed Electronically By: Co Signed Date/Time: CC: JAEL ASHLEY DO [facility] Work Phone: 1(434) 811-108810-07-2025 Progress note Author LINDSEY [facility] Note Date/Time July 22, 2025 10 :39am [facility] [address] [place], [place] [id number] HEALTH INFORMATION MANAGEMENT PROGRESS NOTE : [id number] Signed Patient: WILEY MEEK Acct:[id number] MRUN: [id number] : 1940 Sex: M Loc: ICU AD M Date: 07/19/25 Room/Bed: 357-A DISC Date: Subjective Assessment Date Of Service: 07/22/25 Events Since Admission: WILEY MEEK was admitted to MEDICAL SURGICAL service into room 357 on 07/19/25 at 12:38 for complaints of METABOLIC ENCEPHALOPATHY GENERALIZED WEAKNESS. The patient's laboratory testing and diagnostic testing has been reviewed. Subjective Note: patient is seen was seen and evaluated by PT the day prior. Patient was deemedsafe to return to his assisted living facility Objective Findings Vitals and I&O: Vital Signs Temperature 97.3 F L 07/22/25 08:07 Pulse Rate 74 07/22/25 08:08 Respiratory Rate 16 07/22/25 08:08 Blood Pressure 132/89 07/22/25 08:07 O2 Sat by Pulse Oximetry(%) 96 07/22/25 08:07 FiO2 - Manual Entry Intake & Output 07/21/25 07/21/25 07/22/25 11:59 23:59 11:59 Intake Total 300 740 360 Output Total 2122 318 9122 Balance -800 115 -665 Weight 184 lb 4.8 oz 186 lb Intake: IV Intake 300 Rocephin 1 Gram Injection 50 1 gm In Sodium Chloride 0.9 % 50 ml 50 ml @ 100 mls/hr IVPB Q24H [facility] Rx#: [id number] Zithromax 500 mg 250 Injection 500 mg In Sodium Chloride 0.9 % 250 ml 250 ml @ 250 mls/hr IVPB Q24H [facility] Rx#: [id number] Intake ml 300 440 360 Output: Output ml 5167 921 1506 Urine 3223 337 6845 Other: Output Urine Nonnumeric/ Comment Urine x1, incontinent , sm LG INCONT Other physical findings: PHYSICAL EXAMINATION GENERAL; cooperative HEENT; atraumatic normocephalic EYES; nonicteric, normal conjunctiva NECK; supple, normal thyroid RESPIRATORY; diminished to auscultation CARDIOVASCULAR; regular S1-S2, GASTROINTESTINAL; soft normal active bowel sounds GENITOURINARY; no renal angle tenderness EXTREMITIES; no edema, no clubbing, no cyanosis NEUROLOGY; awake, no lateralizing signs SKIN; no rash PSYCHIATRY; flat affect Laboratory-Last 48 hrs: 07/22/25 05:25 07/22/25 05:25 Laboratory Results-last 24 hrs 07/21/25 05:17: Creatinine 1.50 H, Est GFR (MDRD) Af Amer 54 A, Est GFR (MDRD) Non-Af 45 A, Glucose 145 H, AST 42 H, Alkaline Phosphatase 40 L, Total Protein 5.9 L, Albumin 2.5 L, Albumin/Globulin Ratio 0.7 L 07/21/25 05:17: RBC 3.46 L, Hgb 11.2 L, Hct 33.7 L, MCV 97.4 H, MCH 32.4 H, [place]% (Auto) 12.6 H, Eos % (Auto) 4.0 H, Absolute Lymphs (auto) 0.90 L 07/22/25 05:25: Creatinine 1.30 H, Est GFR (MDRD) Non-Af 53 A, Glucose 114 H, Alkaline Phosphatase 42 L, Total Protein 6.0 L, Albumin 2.6 L, Albumin/Globulin Ratio 0.8 L 07/22/25 05:25: RBC 3.42 L, Hgb 11.0 L, Hct 33.3 L, MCV 97.4 H, MCH 32.2 H, Eos % (Auto) 5.9 H, Absolute Eos (auto) 0.30 H Radiology-Impressions: See radiology reports in electronic medical record. Impressions - Problems (1) Essential hypertension Status: Acute Priority: Medium Current Visit: Yes (2) COVID-19 virus infection Status: Acute Current Visit: No Plan/Treatment Plan: Patient is a 85-year-old gentleman admitted with progressive generalized weakness and fall. Assessment on admission came back consistent with COVID-19 admitted to a monitored bed where patient has since been managed 1. Acute metabolic encephalopathy Secondary to COVID-19 pneumonia patient is level of sensorium improved with treatment 2. COVID-19 pneumonia with suspected superimposed bacterial pneumonia with Gram-positive organisms The patient is managed with ceftriaxone as well as azithromycin 3. 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 Home dose continued 5. Dementia Without behavioral agitation patient is on Aricept did continue 6. Dyslipidemia The patient is on fenofibrate 7. Physical deconditioning/debility - Requested for PT/OT eval and treatment. Consult also placed to director social/case management to assist with discharge planning and disposition -plan is for patient to be discharged to his longterm facility 8. GERD - Patient is on PPI, continued 9. DVT prophylaxis - [place] Lovenox Impressions Chest X-Ray 07/21/25 06:00 IMPRESSION: Unchanged ill-defined opacification seen with left lung base with small left pleural effusion. Visit Coding - VISIT CODING Date of Service: 07/22/25 Billing Provider:: LINDSEY CAVAZOS Visit Codes: NOT BILLABLE Electronically Generated By:LINDSEY CAVAZOS MD Generated Date/Time: 07/22/25 0900 Electronically Signed By: <Electronically signed by LINDSEY CAVAZOS MD> 07/22/25 1039 Co Signed Electronically By: Co Signed Date/Time: CC: [facility] Work Phone: 1(861) 942-320510-07-2025 Progress note Author LINDSEY CAVAZOS [facility] Note Date/Time July 22, 2025 10 :39am [facility] [address] [place] [address] HEALTH INFORMATION MANAGEMENT PROGRESS NOTE : [id number] Signed Patient: WILEY MEEK Acct:[id number] MRUN: [id number] : 1940 Sex: M Loc: ICU AD M Date: 07/19/25 Room/Bed: 357-A DISC Date: Subjective Assessment Date Of Service: 07/22/25 Events Since Admission: WILEY MEEK was admitted to MEDICAL SURGICAL service into room 357 on 07/19/25 at 12:38 for complaints of METABOLIC ENCEPHALOPATHY GENERALIZED WEAKNESS. The patient's laboratory testing and diagnostic testing has been reviewed. Subjective Note: patient is seen was seen and evaluated by PT the day prior. Patient was deemedsafe to return to his assisted living facility Objective Findings Vitals and I&O: Vital Signs Temperature 97.3 F L 07/22/25 08:07 Pulse Rate 74 07/22/25 08:08 Respiratory Rate 16 07/22/25 08:08 Blood Pressure 132/89 07/22/25 08:07 O2 Sat by Pulse Oximetry(%) 96 07/22/25 08:07 FiO2 - Manual Entry Intake & Output 07/21/25 07/21/25 07/22/25 11:59 23:59 11:59 Intake Total 300 740 360 Output Total 7218 662 8167 Balance -800 115 -665 Weight 184 lb 4.8 oz 186 lb Intake: IV Intake 300 Rocephin 1 Gram Injection 50 1 gm In Sodium Chloride 0.9 % 50 ml 50 ml @ 100 mls/hr IVPB Q24H [facility] Rx#: [id number] Zithromax 500 mg 250 Injection 500 mg In Sodium Chloride 0.9 % 250 ml 250 ml @ 250 mls/hr IVPB Q24H [facility] Rx#: [id number] Intake ml 300 440 360 Output: Output ml 3086 398 3997 Urine 3250 147 3311 Other: Output Urine Nonnumeric/ Comment Urine x1, incontinent , sm LG INCONT Other physical findings: PHYSICAL EXAMINATION GENERAL; cooperative HEENT; atraumatic normocephalic EYES; nonicteric, normal conjunctiva NECK; supple, normal thyroid RESPIRATORY; diminished to auscultation CARDIOVASCULAR; regular S1-S2, GASTROINTESTINAL; soft normal active bowel sounds GENITOURINARY; no renal angle tenderness EXTREMITIES; no edema, no clubbing, no cyanosis NEUROLOGY; awake, no lateralizing signs SKIN; no rash PSYCHIATRY; flat affect Laboratory-Last 48 hrs: 07/22/25 05:25 07/22/25 05:25 Laboratory Results-last 24 hrs 07/21/25 05:17: Creatinine 1.50 H, Est GFR (MDRD) Af Amer 54 A, Est GFR (MDRD) Non-Af 45 A, Glucose 145 H, AST 42 H, Alkaline Phosphatase 40 L, Total Protein 5.9 L, Albumin 2.5 L, Albumin/Globulin Ratio 0.7 L 07/21/25 05:17: RBC 3.46 L, Hgb 11.2 L, Hct 33.7 L, MCV 97.4 H, MCH 32.4 H, [place]% (Auto) 12.6 H, Eos % (Auto) 4.0 H, Absolute Lymphs (auto) 0.90 L 07/22/25 05:25: Creatinine 1.30 H, Est GFR (MDRD) Non-Af 53 A, Glucose 114 H, Alkaline Phosphatase 42 L, Total Protein 6.0 L, Albumin 2.6 L, Albumin/Globulin Ratio 0.8 L 07/22/25 05:25: RBC 3.42 L, Hgb 11.0 L, Hct 33.3 L, MCV 97.4 H, MCH 32.2 H, Eos % (Auto) 5.9 H, Absolute Eos (auto) 0.30 H Radiology-Impressions: See radiology reports in electronic medical record. Impressions - Problems (1) Essential hypertension Status: Acute Priority: Medium Current Visit: Yes (2) COVID-19 virus infection Status: Acute Current Visit: No Plan/Treatment Plan: Patient is a 85-year-old gentleman admitted with progressive generalized weakness and fall. Assessment on admission came back consistent with COVID-19 admitted to a monitored bed where patient has since been managed 1. Acute metabolic encephalopathy Secondary to COVID-19 pneumonia patient is level of sensorium improved with treatment 2. COVID-19 pneumonia with suspected superimposed bacterial pneumonia with Gram-positive organisms The patient is managed with ceftriaxone as well as azithromycin 3. 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 Home dose continued 5. Dementia Without behavioral agitation patient is on Aricept did continue 6. Dyslipidemia The patient is on fenofibrate 7. Physical deconditioning/debility - Requested for PT/OT eval and treatment. Consult also placed to director social/case management to assist with discharge planning and disposition -plan is for patient to be discharged to his longterm facility 8. GERD - Patient is on PPI, continued 9. DVT prophylaxis - [place] Lovenox Impressions Chest X-Ray 07/21/25 06:00 IMPRESSION: Unchanged ill-defined opacification seen with left lung base with small left pleural effusion. Visit Coding - VISIT CODING Date of Service: 07/22/25 Billing Provider:: LINDSEY CAVAZOS Common Visit Codes: NOT BILLABLE Electronically Generated By:LINDSEY CAVAZOS MD Generated Date/Time: 07/22/25 0900 Electronically Signed By: <Electronically signed by LINDSEY CAVAZOS MD> 07/22/25 1039 Co Signed Electronically By: Co Signed Date/Time: CC: [facility] Work Phone: [phone] 359-505510-07-2025 [place] [address] HEALTH INFORMATION MANAGEMENT DISCHARGE SUMMARY : [id number] Signed Patient: WILEY MEEK Acct:[id number] MRUN: [id number] : 1940 Sex: M Loc: ICU ADM Date: Room/Bed: 357-A DISC Date: - Hospital Course Events Since Admission: WILEY MEEK was admitted to MEDICAL SURGICAL service into room 357 on 07/19/25 at 12:38 from Emergency Dept for complaints of METABOLIC ENCEPHALOPATHY GENERALIZED WEAKNESS. Laboratory and diagnostic testing has been reviewed. The patient was seen, evaluated and found to be appropriate for discharge. Reason For Visit: METABOLIC ENCEPHALOPATHY GENERALIZED WEAKNESS Hospital Course: Patient is a 85-year-old gentleman admitted with progressive generalized weakness and fall. Assessment on admission came back consistent with COVID-19 admitted to a monitored bed where patient has since been managed 1. Acute metabolic encephalopathy Secondary to COVID-19 pneumonia patient is level of sensorium improved with treatment 2. COVID-19 pneumonia with suspected superimposed bacterial pneumonia with Gram- positive organisms The patient is managed with ceftriaxone as well as azithromycin 3. 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 Home dose continued 5. Dementia Without behavioral agitation patient is on Aricept did continue 6. Dyslipidemia The patient is on fenofibrate 7. Physical deconditioning/debility - Requested for PT/OT eval and treatment. Consult also placed to director social/case management to assist with discharge planning and disposition -plan is for patient to be discharged to his longterm facility 8. GERD - Patient is on PPI, continued 9. DVT prophylaxis - [facility] Treatment: 07/22/25 05:25 07/22/25 05:25 Laboratory Results - last 24 hr 07/22/25 05:25: WBC 4.4, RBC 3.42 L, Hgb 11.0 L, Hct 33.3 L, MCV 97.4 H, MCH 32.2 H, MCHC 33.0, RDW 14.3, Plt Count 254, MPV 9.1, Neut % (Auto) 56.1, Lymph % (Auto) 28.5, [place] % (Auto) 9.1, Eos % (Auto) 5.9 H, Baso % (Auto) 0.2, Abs Immat Gran (man) 0.01, Absolute Neuts (auto) 2.46, Absolute Lymphs (auto) 1.30, Absolute Monos (auto) 0.40, Absolute Eos (auto) 0.30 H, Absolute Basos (auto) 0.01, Immature Gran % 0.20 07/22/25 05:25: Sodium 140, Potassium 4.1, Chloride 106, Total Carbon Dioxide 27, Anion Gap 11.1, BUN 24.6, Creatinine 1.30 H, Est GFR (MDRD) Af Amer > 60, Est GFR (MDRD) Non-Af 53 A, BUN/Creatinine Ratio 19, Glucose 114 H, Calcium 8.7, Total Bilirubin 0.31, AST 38, ALT 33, Alkaline Phosphatase 42 L, Total Protein 6.0 L, Albumin 2.6 L, Globulin 3.4, Albumin/Globulin Ratio 0.8 L Intake Output 07/19/25 07/20/25 07/21/25 07/22/25 23:59 23:59 23:59 23:59 Intake Total 7740 216 5914 360 Output Total 250 1725 1025 Balance 1300 867 -115 -665 Weight 191 lb 185 lb 14.4 oz 184 lb 4.8 oz 186 lb See radiology reports in electronic medical record. - Problems (1) Essential hypertension Status: Acute Priority: Medium Current Visit: Yes (2) COVID-19 virus infection Status: Acute Current Visit: No - Discharge Information Discharge Diagnosis:: COVID-19 pneumonia Disposition: [facility] Condition: Good Plan of Treatment: as documented above - Discharge Instructions Referrals: JAEL ASHLEY DO [Primary Care Provider, [facility]] - 1 Week -Nurse to Schedule Prescriptions home med reconciliation (Convert): Cefdinir [Omnicef 300 mg Capsule] 300 mg PO BID #10 capsule Activity Level For Discharge:: As Tolerated Discharge Diet: Low Sodium, Nonconcentrated Sweets Weight Bearing Status: Weight Bearing as Tolerated - ASCVD SCORING Was this patient admitted for chest pain?: No Visit Coding - VISIT CODING Date of Service: 07/22/25 Billing Provider:: LINDSEY CAVAZOS Common Visit Codes: 75298-IFV/OBS DISCH DAY <30MIN Electronically Generated By: LINDSEY CAVAZOS MD Generated Date/Time: 07/22/258 Electronically Signed By: 07/22/259 Co Signed Electronically By: Co Signed Date/Time: CC: JAEL ASHLEY, [facility]10-07-20[place] [address] HEALTH INFORMATION MANAGEMENT DISCHARGE SUMMARY : [id number] Signed Patient: WILEY MEEK Acct:[id number] MRUN: [id number] : 1940 Sex: M Loc: ICU AD M Date: 07/19/25 Room/Bed: 357-A DISC Date: - Hospital Course Events Since Admission: WILEY MEEK was admitted to MEDICAL SURGICAL service into room 357 on 07/19/25 at 12:38 from Emergency Dept for complaints of METABOLIC ENCEPHALOPATHYGENERALIZED WEAKNESS. Laboratory and diagnostic testing has been reviewed. Thepatient was seen, evaluated and found to be appropriate for aleyda menjivar. Reason For Visit: METABOLIC ENCEPHALOPATHY GENERALIZED WEAKNESS Hospital Course: Patient is a 85-year-old gentleman admitted with progressive generalized weakness and fall. Assessment on admission came back consistent with COVID-19 admitted to a monitored bed where patient has since been managed 1. Acute metabolic encephalopathy Secondary to COVID-19 pneumonia patient is level of sensorium improved with treatment 2. COVID-19 pneumonia with suspected superimposed bacterial pneumonia with Gram- positive organisms The patient is managed with ceftriaxone as well as azithromycin 3. 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 Home dose continued 5. Dementia Without behavioral agitation patient is on Aricept did continue 6. Dyslipidemia The patient is on fenofibrate 7. Physical deconditioning/debility - Requested for PT/OT eval and treatment. Consult also placed to director social/case management toassist with discharge planning and disposition -plan is for patient to be discharged to his longterm facility 8. GERD - Patient is on PPI, continued 9. DVT prophylaxis - [facility] Treatment: 07/22/25 05:25 07/22/25 05:25 Laboratory Results - last 24 hr 07/22/25 05:25: WBC 4.4, RBC 3.42 L, Hgb 11.0 L, Hct 33.3 L, MCV 97.4 H, MCH 32.2 H, MCHC 33.0, RDW14.3, Plt Count 254, MPV 9.1, Neut % (Auto) 56.1, Lymph %(Auto) 28.5, [place] % (Auto) 9.1, Eos % (Auto) 5.9 H, Baso % (Auto) 0.2, Abs ImmatGran (man) 0.01, Absolute Neuts (auto) 2.46, Absolute Lymphs (auto) 1.30, Absolute Monos (auto) 0.40, Absolute Eos (auto) 0.30 H, Absolute Basos (auto) 0.01, Immature Gran % 0.20 07/22/25 05:25: Sodium 140, Potassium 4.1, Chloride 106, Total Carbon Dioxide 27, Anion Gap 11.1, BUN 24.6, Creatinine 1.30 H, Est GFR (MDRD) Af Amer > 60, Est GFR (MDRD) Non-Af 53 A, BUN/Creatinine Ratio 19, Glucose 114 H, Calcium 8.7, Total Bilirubin 0.31, AST 38, ALT 33, Alkaline Phosphatase 42 L, Total Protein 6.0 L, Albumin 2.6 L, Globulin 3.4, Albumin/Globulin Ratio 0.8 L Intake & Output 07/19/25 07/20/25 07/21/25 07/22/25 23:59 23:59 23:59 23:59 Intake Total 0779 050 7378 360 Output Total 250 1725 1025 Balance 1300 890 -775 -667 Weight 191 lb 185 lb 14.4 oz 184 lb 4.8 oz 186 lb See radiology reports in electronic medical record. - Problems (1) Essential hypertension Status: Acute Priority: Medium Current Visit: Yes (2) COVID-19 virus infection Status: Acute Current Visit: No - Discharge Information Discharge Diagnosis:: COVID-19 pneumonia Disposition: 04 [facility] Condition: Good Plan of Treatment: as documented above - Discharge Instructions Referrals: JAEL ASHLEY DO [Primary Care Provider, [facility]] - 1 Week -Nurse to Schedule Prescriptions & home med reconciliation (Convert): Cefdinir [Omnicef 300 mg Capsule] 300 mg PO BID #10 capsule Activity Level For Discharge:: As Tolerated Discharge Diet: Low Sodium, Nonconcentrated Sweets Weight Bearing Status: Weight Bearing as Tolerated - ASCVD SCORING Was this patient admitted for chest pain?: No Visit Coding - VISIT CODING Date of Service: 07/22/25 Billing Provider:: LINDSEY CAVAZOS Common Visit Codes: 72417-UXN/OBS DISCH DAY <30MIN Electronically Generated By:LINDSEY CAVAZOS MD Generated Date/Time: 07/22/251047 Electronically Signed By: 07/22/251048 Co Signed Electronically By: Co Signed Date/Time: CC: JAEL ASHLEY DO [facility]10-07-2025 [place] [address] HEALTH INFORMATION MANAGEMENT PROGRESS NOTE : [id number] Signed Patient: WILEY MEEK Acct:[id number] MRUN: [id number] : 1940 Sex: M Loc: ICU AD M Date: 07/19/25 Room/Bed: 357-A DISC Date: Subjective Assessment Date Of Service: 07/22/25 Events Since Admission: WILEY MEEK was admitted to MEDICAL SURGICAL service into room 357 on 07/19/25 at 12:38 for complaints of METABOLIC ENCEPHALOPATHY GENERALIZED WEAKNESS. The patient's laboratory testing anddiagnostic testing has been reviewed. Subjective Note: patient is seen was seen and evaluated by PT the day prior. Patient was deemedsafe to return to hisassisted living facility Objective Findings Vitals and I&O: Vital Signs Temperature 97.3 F L 07/22/25 08:07 Pulse Rate 74 07/22/25 08:08 Respiratory Rate 16 07/22/25 08:08 Blood Pressure 132/89 07/22/25 08:07 O2 Sat by Pulse Oximetry(%) 96 07/22/25 08:07 FiO2 - Manual Entry Intake & Output 07/21/25 07/21/25 07/22/25 11:59 23:59 11:59 Intake Total 300 740 360 Output Total 4901 075 4639 Balance -800 115 -665 Weight 184 lb 4.8 oz 186 lb Intake: IV Intake 300 Rocephin 1 Gram Injection 50 1 gm In Sodium Chloride 0.9 % 50 ml 50 ml @ 100 mls/hr IVPB Q24H [facility] Rx#: [id number] Zithromax 500 mg 250 Injection 500 mg In Sodium Chloride 0.9 % 250 ml 250 ml @ 250 mls/hr IVPB Q24H [facility] Rx#: [id number] Intake ml 300 440 360 Output: Output ml 4790 021 3247 Urine 3893 571 0893 Other: Output Urine Nonnumeric/ Comment Urine x1, incontinent , sm LG INCONT Other physical findings: PHYSICAL EXAMINATION GENERAL; cooperative HEENT; atraumatic normocephalic EYES; nonicteric, normal conjunctiva NECK; supple, normal thyroid RESPIRATORY; diminished to auscultation CARDIOVASCULAR; regular S1-S2, GASTROINTESTINAL; soft normal active bowel sounds GENITOURINARY; no renal angle tenderness EXTREMITIES; no edema, no clubbing, no cyanosis NEUROLOGY; awake, no lateralizing signs SKIN; no rash PSYCHIATRY; flat affect Laboratory-Last 48 hrs: 07/22/25 05:25 07/22/25 05:25 Laboratory Results-last 24 hrs 07/21/25 05:17: Creatinine 1.50 H, Est GFR (MDRD) Af Amer 54 A, Est GFR (MDRD) Non-Af 45 A, Siafwgj222 H, AST 42 H, Alkaline Phosphatase 40 L, Total Protein 5.9 L, Albumin 2.5 L, Albumin/Globulin Ratio 0.7 L 07/21/25 05:17: RBC 3.46 L, Hgb 11.2 L, Hct 33.7 L, MCV 97.4 H, MCH 32.4 H, [place]% (Auto) 12.6 H, Eos % (Auto) 4.0 H, Absolute Lymphs (auto) 0.90 L 07/22/25 05:25: Creatinine 1.30 H, Est GFR (MDRD) Non-Af 53 A, Glucose 114 H, Alkaline Phosphatase 42 L, Total Protein 6.0 L, Albumin 2.6 L, Albumin/Globulin Ratio 0.8 L 07/22/25 05:25: RBC 3.42 L, Hgb 11.0 L, Hct 33.3 L, MCV 97.4 H, MCH 32.2 H, Eos % (Auto) 5.9 H, Absolute Eos (auto) 0.30 H Radiology-Impressions: See radiology reports in electronic medical record. Impressions - Problems (1) Essential hypertension Status: Acute Priority: Medium Current Visit: Yes (2) COVID-19 virus infection Status: Acute Current Visit: No Plan/Treatment Plan: Patient is a 85-year-old gentleman admitted with progressive generalized weakness and fall. Assessment on admission came back consistent with COVID-19 admitted to a monitored bed where patient has since been managed 1. Acute metabolic encephalopathy Secondary to COVID-19 pneumonia patient is level of sensorium improved with treatment 2. COVID-19 pneumonia with suspected superimposed bacterial pneumonia with Gram- positive organisms The patient is managed with ceftriaxone as well as azithromycin 3. 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 Home dose continued 5. Dementia Without behavioral agitation patient is on Aricept did continue 6. Dyslipidemia The patient is on fenofibrate 7. Physical deconditioning/debility - Requested for PT/OT eval and treatment. Consult also placed to director social/case management toassist with discharge planning and disposition -plan is for patient to be discharged to his longterm facility 8. GERD - Patient is on PPI, continued 9. DVT prophylaxis - [place] Lovenox Impressions Chest X-Ray 07/21/25 06:00 IMPRESSION: Unchanged ill-defined opacification seen with left lung base with small left pleural effusion. Visit Coding - VISIT CODING Date of Service: 07/22/25 Billing Provider:: LINDSEY CAVAZOS Visit Codes: NOT BILLABLE Electronically Generated By:LINDSEY CAVAZOS MD Generated Date/Time: 07/22/25 0900 Electronically Signed By: 07/22/25 1039 Co Signed Electronically By: Co Signed Date/Time: CC: [facility]10-06-2025 Progress note Author LINDSEY CAVAZOS [facility] Note Date/Time July 21, 2025 10 :35am [facility] [address] [place] [address] HEALTH INFORMATION MANAGEMENT PROGRESS NOTE : [id number] Signed Patient: WILEY MEEK Acct:[id number] MRUN: [id number] : 1940 Sex: M Loc: ICU AD M Date: 07/19/25 Room/Bed: 357-A DISC Date: Subjective Assessment Date Of Service: 07/21/25 Events Since Admission: WILEY MEEK was admitted to MEDICAL SURGICAL service into room 357 on 07/19/25 at 12:38 for complaints of METABOLIC ENCEPHALOPATHY GENERALIZED WEAKNESS. The patient's laboratory testing and diagnostic testing has been reviewed. Subjective Note: Patient is a 85-year-old gentleman admitted with progressive generalized weakness and fall. Assessment on admission came back consistent with COVID-19 admitted to a monitored bed where patient has since been managed Condition: Fair Objective Findings Vitals and I&O: Vital Signs Temperature 97.7 F 07/21/25 08:19 Pulse Rate 81 07/21/25 04:29 Respiratory Rate 19 07/21/25 08:00 Blood Pressure 134/85 07/21/25 08:19 O2 Sat by Pulse Oximetry(%) 96 07/21/25 08:19 FiO2 - Manual Entry Intake & Output 07/20/25 07/20/25 07/21/25 11:59 23:59 11:59 Intake Total 530 300 Output Total 250 450 Balance 280 -150 Weight 185 lb 14.4 oz 184 lb 4.8 oz Intake: IV Intake 50 Rocephin 1 Gram Injection 50 1 gm In Sodium Chloride 0.9 % 50 ml 50 ml @ 100 mls/hr IVPB Q24H [facility] Rx#: [id number] Intake ml 480 300 Output: Output ml 250 450 Urine 250 450 Other: Oral Intake Size Oral Small Output Urine Nonnumeric/ Comment Urine lg incont x1, incontinent , sm Output stool Nonnumeric/ Comment Stool Large/hard Other physical findings: PHYSICAL EXAMINATION GENERAL; cooperative HEENT; atraumatic normocephalic EYES; nonicteric, normal conjunctiva NECK; supple, normal thyroid RESPIRATORY; diminished to auscultation CARDIOVASCULAR; regular S1-S2, GASTROINTESTINAL; soft normal active bowel sounds GENITOURINARY; no renal angle tenderness EXTREMITIES; no edema, no clubbing, no cyanosis NEUROLOGY; awake, no lateralizing signs SKIN; no rash PSYCHIATRY; flat affect Laboratory-Last 48 hrs: 07/21/25 05:17 07/21/25 05:17 Laboratory Results-last 24 hrs 07/19/25 10:40: Creatinine 1.50 H, Est GFR (MDRD) Af Amer 54 A, Est GFR (MDRD) Non-Af 45 A, Glucose 121 H, AST 55 H, Alkaline Phosphatase 52 L, Albumin 3.3 L, Albumin/Globulin Ratio 0.9 L 07/19/25 11:15: RBC 3.91 L, MCV 96.7 H, MCH 32.0 H, Neut % (Auto) 88.9 H, Lymph % (Auto) 4.7 L, [place] % (Auto) 5.2 L, Eos % (Auto) 0.8 L, Absolute Neuts (auto) 7.54 H, Absolute Lymphs (auto) 0.40 L 07/19/25 11:21: Urine Protein 15 A, Urine Blood 10 A 07/19/25 12:35: SARS-CoV-2 Ag (Rapid) Positive A 07/19/25 12:50: VBG pH 7.335 L, VBG pO2 55.1 H, VBG HCO3 25.0 H, VBG O2 Saturation 87.7 H, VBG Carboxyhemoglobin 3.2 H 07/20/25 04:30: Creatinine 1.30 H, Est GFR (MDRD) Non-Af 53 A, Glucose 127 H, AST 51 H, Alkaline Phosphatase 44 L, Albumin 2.8 L, Albumin/Globulin Ratio 0.8 L 07/20/25 04:30: RBC 3.63 L, Hgb 11.7 L, Hct 35.2 L, MCV 97.0 H, MCH 32.2 H, Neut% (Auto) 76.8 H, Lymph % (Auto) 12.1 L, Absolute Lymphs (auto) 0.60 L 07/21/25 05:17: Creatinine 1.50 H, Est GFR (MDRD) Af Amer 54 A, Est GFR (MDRD) Non-Af 45 A, Glucose 145 H, AST 42 H, Alkaline Phosphatase 40 L, Total Protein 5.9 L, Albumin 2.5 L, Albumin/Globulin Ratio 0.7 L 07/21/25 05:17: RBC 3.46 L, Hgb 11.2 L, Hct 33.7 L, MCV 97.4 H, MCH 32.4 H, [place]% (Auto) 12.6 H, Eos % (Auto) 4.0 H, Absolute Lymphs (auto) 0.90 L Radiology-Impressions: See radiology reports in electronic medical record. Impressions - Problems (1) Essential hypertension Status: Acute Priority: Medium Current Visit: Yes (2) COVID-19 virus infection Status: Acute Current Visit: No Plan/Treatment Plan: Patient is a 85-year-old gentleman admitted with progressive generalized weakness and fall. Assessment on admission came back consistent with COVID-19 admitted to a monitored bed where patient has since been managed 1. Acute metabolic encephalopathy Secondary to COVID-19 pneumonia patient is level of sensorium improved with treatment 2. COVID-19 pneumonia with suspected superimposed bacterial pneumonia with Gram-positive organisms The patient is managed with ceftriaxone as well as azithromycin 3. 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 Home dose continued 5. Dementia Without behavioral agitation patient is on Aricept did continue 6. Dyslipidemia The patient is on fenofibrate 7. Physical deconditioning/debility - Requested for PT/OT eval and treatment. Consult also placed to director social/case management to assist with discharge planning and disposition 8. GERD - Patient is on PPI, continued 9. DVT prophylaxis - [place] Lovenox Impressions Chest X-Ray 07/21/25 06:00 IMPRESSION: Unchanged ill-defined opacification seen with left lung base with small left pleural effusion. Visit Coding - VISIT CODING Date of Service: 07/21/25 Billing Provider:: LINDSEY CAVAZOS Common Visit Codes: [id number] INP/OBS CARE(MOD) Electronically Generated By:LINDSEY CAVAZOS MD Generated Date/Time: 07/21/25 0955 Electronically Signed By: <Electronically signed by LINDSEY CAVAZOS MD> 07/21/25 1035 Co Signed Electronically By: Co Signed Date/Time: CC: [facility] Work Phone: 1(795) 518-258110-06-2025 Progress note Author LINDSEY [facility] Note Date/Time July 21, 2025 10 :35am [facility] [address] [place] [address] HEALTH INFORMATION MANAGEMENT PROGRESS NOTE : [id number] Signed Patient: WILEY MEEK Acct:[id number] MRUN: [id number] : 1940 Sex: M Loc: ICU AD M Date: 07/19/25 Room/Bed: [facility]-A DISC Date: Subjective Assessment Date Of Service: 07/21/25 Events Since Admission: WILEY MEEK was admitted to MEDICAL SURGICAL service into room 357 on 07/19/25 at 12:38 for complaints of METABOLIC ENCEPHALOPATHY GENERALIZED WEAKNESS. The patient's laboratory testing and diagnostic testing has been reviewed. Subjective Note: Patient is a 85-year-old gentleman admitted with progressive generalized weakness and fall. Assessment on admission came back consistent with COVID-19 admitted to a monitored bed where patient has since been managed Condition: Fair Objective Findings Vitals and I&O: Vital Signs Temperature 97.7 F 07/21/25 08:19 Pulse Rate 81 07/21/25 04:29 Respiratory Rate 19 07/21/25 08:00 Blood Pressure 134/85 07/21/25 08:19 O2 Sat by Pulse Oximetry(%) 96 07/21/25 08:19 FiO2 - Manual Entry Intake & Output 07/20/25 07/20/25 07/21/25 11:59 23:59 11:59 Intake Total 530 300 Output Total 250 450 Balance 280 -150 Weight 185 lb 14.4 oz 184 lb 4.8 oz Intake: IV Intake 50 Rocephin 1 Gram Injection 50 1 gm In Sodium Chloride 0.9 % 50 ml 50 ml @ 100 mls/hr IVPB Q24H [facility] Rx#: [id number] Intake ml 480 300 Output: Output ml 250 450 Urine 250 450 Other: Oral Intake Size Oral Small Output Urine Nonnumeric/ Comment Urine lg incont x1, incontinent , sm Output stool Nonnumeric/ Comment Stool Large/hard Other physical findings: PHYSICAL EXAMINATION GENERAL; cooperative HEENT; atraumatic normocephalic EYES; nonicteric, normal conjunctiva NECK; supple, normal thyroid RESPIRATORY; diminished to auscultation CARDIOVASCULAR; regular S1-S2, GASTROINTESTINAL; soft normal active bowel sounds GENITOURINARY; no renal angle tenderness EXTREMITIES; no edema, no clubbing, no cyanosis NEUROLOGY; awake, no lateralizing signs SKIN; no rash PSYCHIATRY; flat affect Laboratory-Last 48 hrs: 07/21/25 05:17 07/21/25 05:17 Laboratory Results-last 24 hrs 07/19/25 10:40: Creatinine 1.50 H, Est GFR (MDRD) Af Amer 54 A, Est GFR (MDRD) Non-Af 45 A, Glucose 121 H, AST 55 H, Alkaline Phosphatase 52 L, Albumin 3.3 L, Albumin/Globulin Ratio 0.9 L 07/19/25 11:15: RBC 3.91 L, MCV 96.7 H, MCH 32.0 H, Neut % (Auto) 88.9 H, Lymph % (Auto) 4.7 L, [place] % (Auto) 5.2 L, Eos % (Auto) 0.8 L, Absolute Neuts (auto) 7.54 H, Absolute Lymphs (auto) 0.40 L 07/19/25 11:21: Urine Protein 15 A, Urine Blood 10 A 07/19/25 12:35: SARS-CoV-2 Ag (Rapid) Positive A 07/19/25 12:50: VBG pH 7.335 L, VBG pO2 55.1 H, VBG HCO3 25.0 H, VBG O2 Saturation 87.7 H, VBG Carboxyhemoglobin 3.2 H 07/20/25 04:30: Creatinine 1.30 H, Est GFR (MDRD) Non-Af 53 A, Glucose 127 H, AST 51 H, Alkaline Phosphatase 44 L, Albumin 2.8 L, Albumin/Globulin Ratio 0.8 L 07/20/25 04:30: RBC 3.63 L, Hgb 11.7 L, Hct 35.2 L, MCV 97.0 H, MCH 32.2 H, Neut% (Auto) 76.8 H, Lymph % (Auto) 12.1 L, Absolute Lymphs (auto) 0.60 L 07/21/25 05:17: Creatinine 1.50 H, Est GFR (MDRD) Af Amer 54 A, Est GFR (MDRD) Non-Af 45 A, Glucose 145 H, AST 42 H, Alkaline Phosphatase 40 L, Total Protein 5.9 L, Albumin 2.5 L, Albumin/Globulin Ratio 0.7 L 07/21/25 05:17: RBC 3.46 L, Hgb 11.2 L, Hct 33.7 L, MCV 97.4 H, MCH 32.4 H, [place]% (Auto) 12.6 H, Eos % (Auto) 4.0 H, Absolute Lymphs (auto) 0.90 L Radiology-Impressions: See radiology reports in electronic medical record. Impressions - Problems (1) Essential hypertension Status: Acute Priority: Medium Current Visit: Yes (2) COVID-19 virus infection Status: Acute Current Visit: No Plan/Treatment Plan: Patient is a 85-year-old gentleman admitted with progressive generalized weakness and fall. Assessment on admission came back consistent with COVID-19 admitted to a monitored bed where patient has since been managed 1. Acute metabolic encephalopathy Secondary to COVID-19 pneumonia patient is level of sensorium improved with treatment 2. COVID-19 pneumonia with suspected superimposed bacterial pneumonia with Gram-positive organisms The patient is managed with ceftriaxone as well as azithromycin 3. 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 Home dose continued 5. Dementia Without behavioral agitation patient is on Aricept did continue 6. Dyslipidemia The patient is on fenofibrate 7. Physical deconditioning/debility - Requested for PT/OT eval and treatment. Consult also placed to director social/case management to assist with discharge planning and disposition 8. GERD - Patient is on PPI, continued 9. DVT prophylaxis - SC Lovenox Impressions Chest X-Ray 07/21/25 06:00 IMPRESSION: Unchanged ill-defined opacification seen with left lung base with small left pleural effusion. Visit Coding - VISIT CODING Date of Service: 07/21/25 Billing Provider:: LINDSEY CAVAZOS Common Visit Codes: [id number] INP/OBS CARE(MOD) Electronically Generated By:LINDSEY CAVAZOS MD Generated Date/Time: 07/21/25 0955 Electronically Signed By: <Electronically signed by LINDSEY CAVAZOS MD> 07/21/25 1035 Co Signed Electronically By: Co Signed Date/Time: CC: [facility] Work Phone: [phone] 997-172710-06-2025 [place] [address] HEALTH INFORMATION MANAGEMENT PROGRESS NOTE : [id number] Signed Patient: AGVIOTAEDENMATTHEW PAPO Acct:[id number] MRUN: [id number] : 1940 Sex: M Loc: ICU AD M Date: 07/19/25 Room/Bed: 357-A DISC Date: Subjective Assessment Date Of Service: 07/21/25 Events Since Admission: WILEY MEEK was admitted to MEDICAL SURGICAL service into room 357 on 07/19/25 at 12:38 for complaints of METABOLIC ENCEPHALOPATHY GENERALIZED WEAKNESS. The patient's laboratory testing anddiagnostic testing has been reviewed. Subjective Note: Patient is a 85-year-old gentleman admitted with progressive generalized weakness and fall. Assessment on admission came back consistent with COVID-19 admitted to a monitored bed where patient has since been managed Condition: Fair Objective Findings Vitals and I&O: Vital Signs Temperature 97.7 F 07/21/25 08:19 Pulse Rate 81 07/21/25 04:29 Respiratory Rate 19 07/21/25 08:00 Blood Pressure 134/85 07/21/25 08:19 O2 Sat by Pulse Oximetry(%) 96 07/21/25 08:19 FiO2 - Manual Entry Intake & Output 07/20/25 07/20/25 07/21/25 11:59 23:59 11:59 Intake Total 530 300 Output Total 250 450 Balance 280 -150 Weight 185 lb 14.4 oz 184 lb 4.8 oz Intake: IV Intake 50 Rocephin 1 Gram Injection 50 1 gm In Sodium Chloride 0.9 % 50 ml 50 ml @ 100 mls/hr IVPB Q24H [facility] Rx#: [id number] Intake ml 480 300 Output: Output ml 250 450 Urine 250 450 Other: Oral Intake Size Oral Small Output Urine Nonnumeric/ Comment Urine lg incont x1, incontinent , sm Output stool Nonnumeric/ Comment Stool Large/hard Other physical findings: PHYSICAL EXAMINATION GENERAL; cooperative HEENT; atraumatic normocephalic EYES; nonicteric, normal conjunctiva NECK; supple, normal thyroid RESPIRATORY; diminished to auscultation CARDIOVASCULAR; regular S1-S2, GASTROINTESTINAL; soft normal active bowel sounds GENITOURINARY; no renal angle tenderness EXTREMITIES; no edema, no clubbing, no cyanosis NEUROLOGY; awake, no lateralizing signs SKIN; no rash PSYCHIATRY; flat affect Laboratory-Last 48 hrs: 07/21/25 05:17 07/21/25 05:17 Laboratory Results-last 24 hrs 07/19/25 10:40: Creatinine 1.50 H, Est GFR (MDRD) Af Amer 54 A, Est GFR (MDRD) Non-Af 45 A, [id number] H, AST 55 H, Alkaline Phosphatase 52 L, Albumin 3.3 L, Albumin/Globulin Ratio 0.9 L 07/19/25 11:15: RBC 3.91 L, MCV 96.7 H, MCH 32.0 H, Neut % (Auto) 88.9 H, Lymph % (Auto) 4.7 L, [place] % (Auto) 5.2 L, Eos % (Auto) 0.8 L, Absolute Neuts (auto) 7.54 H, Absolute Lymphs (auto) 0.40 L 07/19/25 11:21: Urine Protein 15 A, Urine Blood 10 A 07/19/25 12:35: SARS-CoV-2 Ag (Rapid) Positive A 07/19/25 12:50: VBG pH 7.335 L, VBG pO2 55.1 H, VBG HCO3 25.0 H, VBG O2 Saturation 87.7 H, VBG Carboxyhemoglobin 3.2 H 07/20/25 04:30: Creatinine 1.30 H, Est GFR (MDRD) Non-Af 53 A, Glucose 127 H, AST 51 H, Alkaline Phosphatase 44 L, Albumin 2.8 L, Albumin/Globulin Ratio 0.8 L 07/20/25 04:30: RBC 3.63 L, Hgb 11.7 L, Hct 35.2 L, MCV 97.0 H, MCH 32.2 H, Neut% (Auto) 76.8 H, Lymph % (Auto) 12.1 L, Absolute Lymphs (auto) 0.60 L 07/21/25 05:17: Creatinine 1.50 H, Est GFR (MDRD) Af Amer 54 A, Est GFR (MDRD) Non-Af 45 A, [id number] H, AST 42 H, Alkaline Phosphatase 40 L, Total Protein 5.9 L, Albumin 2.5 L, Albumin/Globulin Ratio 0.7 L 07/21/25 05:17: RBC 3.46 L, Hgb 11.2 L, Hct 33.7 L, MCV 97.4 H, MCH 32.4 H, [place]% (Auto) 12.6 H, Eos % (Auto) 4.0 H, Absolute Lymphs (auto) 0.90 L Radiology-Impressions: See radiology reports in electronic medical record. Impressions - Problems (1) Essential hypertension Status: Acute Priority: Medium Current Visit: Yes (2) COVID-19 virus infection Status: Acute Current Visit: No Plan/Treatment Plan: Patient is a 85-year-old gentleman admitted with progressive generalized weakness and fall. Assessment on admission came back consistent with COVID-19 admitted to a monitored bed where patient has since been managed 1. Acute metabolic encephalopathy Secondary to COVID-19 pneumonia patient is level of sensorium improved with treatment 2. COVID-19 pneumonia with suspected superimposed bacterial pneumonia with Gram- positive organisms The patient is managed with ceftriaxone as well as azithromycin 3. 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 Home dose continued 5. Dementia Without behavioral agitation patient is on Aricept did continue 6. Dyslipidemia The patient is on fenofibrate 7. Physical deconditioning/debility - Requested for PT/OT eval and treatment. Consult also placed to director social/case management toassist with discharge planning and disposition 8. GERD - Patient is on PPI, continued 9. DVT prophylaxis - SC Lovenox Impressions Chest X-Ray 07/21/25 06:00 IMPRESSION: Unchanged ill-defined opacification seen with left lung base with small left pleural effusion. Visit Coding - VISIT CODING Date of Service: 07/21/25 Billing Provider:: LINDSEY CAVAZOS Common Visit Codes: [id number] INP/OBS CARE(MOD) Electronically Generated By:LINDSEY CAVAZOS MD Generated Date/Time: 07/21/25 0955 Electronically Signed By: 07/21/25 1035 Co Signed Electronically By: Co Signed Date/Time: CC: [facility]10-06-2025 Radiology Diagnostic study note [facility] RADIOLOGY [facility] [place] [address] DIAGNOSTIC RADIOLOGY REPORT: [id number], Signed. 2 Patient: WILEY MEEK : 1940, age 85 MR#: [id number] Acct: [id number] - EXAMINATION: ONE XRAY VIEW OF THE CHEST 07/21/2025 5:28 am COMPARISON: 07/19/2025 HISTORY: ORDERING SYSTEM PROVIDED HISTORY: left lower lobe COVID-19 pneumonia-trend FINDINGS: Portable chest reveals heart to be borderline enlarged. Ill-defined opacification seen with left lung base with small left pleural effusion. Degenerative changes seen within the spine. The upper lung richardson are clear. The right lung is clear. DIAG/CHEST AP IMPRESSION: Unchanged ill-defined opacification seen with left lung base with small left pleural effusion. Electronically Signed by: MARY ELLEN BOB MD Signed date/time: 07/21/25620 CC: RL MARTINES MD; JAEL ASHLEY DO [facility] Work Phone: 1([phone]) 266-417910-05-2025 Progress note Author RL MARTINES [facility] Note Date/Time July 20, 2025 8: 29pm [facility] [address] [place] [address] HEALTH INFORMATION MANAGEMENT PROGRESS NOTE : [id number] Signed Patient: WILEY MEEK Acct:[id number] MRUN: [id number] : 1940 Sex: M Loc: ICU AD M Date: 07/19/25 Room/Bed: 357-A DISC Date: Subjective Assessment Date Of Service: 07/20/25 Events Since Admission: WILEY MEEK was admitted to MEDICAL SURGICAL service into room 357 on 07/19/25 at 12:38 for complaints of METABOLIC ENCEPHALOPATHY GENERALIZED WEAKNESS. The patient's laboratory testing and diagnostic testing has been reviewed. Status: Pt Condition Improving, Continue Current Course of Treatment Subjective Note: I was updated by nursing that the patient was found down at the facility and does have a bruise to his left hip. He is seen sitting up eating lunch. He is aware he is in case shocked and however has moments where he thinks he is at [facility]. He was able to tellme that his daughter recently had foot surgery therefore I would be able to update her easily as she is not moving around. He denies any cough or shortness of breath. He did report constipation to the nurse. updated patient's daughter about improvement in symptoms and that he has been up to a chair. Condition: Fair General: Denies: Fever, Chills, Sweats, Weakness, Fatigue, Weight Gain, Weight Loss, Other ENT: Denies: Earache, Ear Discharge, Decreased Hearing, Tinnitus, Nose Congestion, Nose Drainage, Nasal Ulcers, Epitaxis, Sore Throat, Throat Swelling,Hoarseness, Loss Of Voice, Tongue Pain, Tongue Swelling, Lip Swelling, Dental Pain, Cervical, Other Respiratory: Denies: Cough, Shortness of Breath, Wheezing, Sputum Production, Hemoptysis, Dyspnea on Exertion, Pleuritic Pain, Other Cardiovascular: Denies: Chest Pain-Sharp, Chest Pain-Heavy, Orthopnea, Short of Breath, Dyspnea on Exertion, Paroxysmal Noc. Dyspnea, Edema, Palpitations, LightHeadedness, Syncope, Diaphoresis, Claudication, Edema, Other Gastrointestinal: Confirms: Constipation Genitourinary: Denies: Dysuria, Frequency, Incontinence, Hematuria, Retention, Other Musculoskeletal: Denies: Neck Pain, Shoulder Pain, Arm Pain, Back Pain, Hand Pain, Leg Pain, Foot Pain, Other Neurological: Denies: Weakness, Numbness, Incoordination, Change in Speech, Confusion, Seizures, Other Objective Findings Sepsis focused exam performed?: No Review of Systems Completed?: Yes General: Yes: Alert, Cooperative/Pleasant, No acute distress. No: Oriented (X3) HEENT: Yes: Atraumatic, PERRLA, EOMI, PERRL, Mucous membr. moist/pink Neck: Yes: Supple, +2 carotid pulse wo bruit. No: JVD, Thyromegaly Lungs: Yes: Unlabored ( on room air), Diminished ( Diminished at bases). No: Exibits Shortness of [place], Pursed Lip Breathing, Use of Accessory Muscles, Retracting Cardiovascular: Yes: Regular rate, Normal S2, Normal S1, No murmurs, Rubber Curer Rhythm (Sinus Rhythm). No: Gallops, Rubs, Ectopy Abdomen: Yes: Bowel Sounds X4, Soft, No Tenderness, Flatus. No: Hepatospenomegaly, Masses, Nausea/Vomiting, Emesis Present, Constipation, Diarrhea Genitourinary/Rectal: Yes: Voiding (Sufficiently). No: Genital Discharge, Bladder Distention, Joe Catheter Extremities: Yes: Normal pulses. No: Clubbing, Cyanosis, Edema, No tenderness/swelling, Bilateral Leg Edema, Mottling noted Skin: No: Rashes, Skin Breakdown, Significant lesions, Open Wound Present Neurological: Yes: Speech Clear, Normal tone, Sensation intact, Cranial nerves 3-12 NL, Reflexes 2+, Cognitive Ability Impaire Psych/Mental Status: Yes: Mental status NL, Mood Appropriate. No: Hallucinations Vitals and I&O: Vital Signs Temperature 97.2 F L 07/20/25 08:00 Pulse Rate 89 07/20/25 10:43 Respiratory Rate 16 07/20/25 10:43 Blood Pressure 131/86 07/20/25 08:00 O2 Sat by Pulse Oximetry(%) 96 07/20/25 10:43 FiO2 - Manual Entry Intake & Output 07/19/25 07/20/25 07/20/25 23:59 11:59 23:59 Intake Total 1300 Balance 1300 Weight 191 lb 185 lb 14.4 oz Intake: IV Intake 1300 Rocephin 1 Gram Injection 50 1 gm In Sodium Chloride 0.9 % 50 ml 50 ml @ 100 mls/hr IVPB [facility] Rx#: [id number] Sodium Chloride 0.9 % 1000 1000 ml 1,000 ml @ 999 mls/hr IV .Q1H1M [facility] Rx#: [id number] Zithromax 500 mg 250 Injection 500 mg In Sodium Chloride 0.9 % 250 ml 250 ml @ 250 mls/hr IVPB Q24H [facility] Rx#: [id number] Other: Output Urine Nonnumeric/ Comment Urine xlg incont lg incont Laboratory-Last 48 hrs: 07/20/25 04:30 07/20/25 04:30 Laboratory Results-last 24 hrs 07/19/25 10:40: Creatinine 1.50 H, Est GFR (MDRD) Af Amer 54 A, Est GFR (MDRD) Non-Af 45 A, Glucose 121 H, AST 55 H, Alkaline Phosphatase 52 L, Albumin 3.3 L, Albumin/Globulin Ratio 0.9 L 07/19/25 11:15: RBC 3.91 L, MCV 96.7 H, MCH 32.0 H, Neut % (Auto) 88.9 H, Lymph % (Auto) 4.7 L, [place] % (Auto) 5.2 L, Eos % (Auto) 0.8 L, Absolute Neuts (auto) 7.54 H, Absolute Lymphs (auto) 0.40 L 07/19/25 11:21: Urine Protein 15 A, Urine Blood 10 A 07/19/25 12:35: SARS-CoV-2 Ag (Rapid) Positive A 07/19/25 12:50: VBG pH 7.335 L, VBG pO2 55.1 H, VBG HCO3 25.0 H, VBG O2 Saturation 87.7 H, VBG Carboxyhemoglobin 3.2 H 07/20/25 04:30: Creatinine 1.30 H, Est GFR (MDRD) Non-Af 53 A, Glucose 127 H, AST 51 H, Alkaline Phosphatase 44 L, Albumin 2.8 L, Albumin/Globulin Ratio 0.8 L 07/20/25 04:30: RBC 3.63 L, Hgb 11.7 L, Hct 35.2 L, MCV 97.0 H, MCH 32.2 H, Neut% (Auto) 76.8 H, Lymph % (Auto) 12.1 L, Absolute Lymphs (auto) 0.60 L Radiology-Impressions: See radiology reports in electronic medical record. Impressions - Problems (1) Fall from standing Problems: Encounter type: initial encounter Qualified Code(s): W19.XXXA - Unspecifiedfall, initial encounter Status: Acute Priority: High Onset Date: ~07/19/25 Present on admission?: Yes Current Visit: Yes (2) Acute metabolic encephalopathy Status: Resolved Priority: High Onset Date: ~07/19/25 Present on admission?: Yes Current Visit: No (3) Pneumonia due to COVID-19 virus Status: Acute Priority: High Onset Date: ~07/19/25 Present on admission?: Yes Current Visit: No (4) Bacterial pneumonia Additional Text: Left lower lobe Status: Acute Priority: High Present on admission?: Yes Current Visit: Yes (5) Chronic renal failure (CRF), stage 3b Status: Chronic Priority: Medium Present on admission?: Yes Current Visit: No (6) Prediabetes Additional Text: A1c 6.2% Status: Chronic Priority: Medium Current Visit: No (7) Dementia without behavioral disturbance Status: Chronic Priority: Medium Present on admission?: Yes Current Visit: Yes (8) Essential hypertension Status: Acute Priority: Medium Present on admission?: Yes Current Visit: Yes Plan/Treatment Current Plan: Continue Current Course of Treatment Plan: Assessment and plan acute metabolic encephalopathy secondary to COVID-19 pneumonia COVID-19 pneumonia With superimposed left lower lobe bacterial pneumonia history of hypertension dementia without behavioral disturbance prediabetes CKD stage IIIB Constipation. chief complaint: Altered mental status this is an 85-year-old man who resides at assisted living presented to the emergency department with altered mental status. At baseline he has dementia attimes lucid at times not. No able to perform complex tasks. History was obtained from the patient's daughter as the patient is somewhat encephalopathic and could not recall why he came into the hospital. Chest x-ray demonstrated a left lower lobe infiltrate. He is somewhat withdrawn on examination. Peripheral saturations were 96% on room air. An VBG was notable for 7.33/40/55/25 on room air. Lactic acid was found to be normal. Rapid COVID swab was found to be negative. He was admitted for acute metabolic encephalopathy secondary to COVID-19. As per discussion with the patient's daughter he is a DNR but may intubate in respiratory arrest or failure. upon arrival to the floor the patient is noted to be slightly tachypneic with diminished breath sounds at the bases. He is currently 94% on room air. An VBGthat was performed in the emergency room shows mild hypercapnia at 7.33/40 8/55 /25 consistent with a mild uncompensated hypercapnic respiratory failure. He is high risk for decompensation. His daughter was informed of the admission andhe is currently a DNR but may intubate in respiratory failure or respiratory arrest. Chest x-ray is consistent with a left lower lobe infiltrate. He is started on ceftriaxone and azithromycin as well as duo nebs around the clock. on 07/20/2025 the patient is not as lethargic as on admission. His peripheral saturations remained 94% on room air. He is feeding himself and eating well. He is seen on the commode as he reported some constipation earlier in the day. Renal function is at baseline with a known history of CKD stage IIIB but is currently better than that. He is continued on ceftriaxone and azithromycin. He is awaiting physical therapy evaluation to see if he is safe for discharge back to [facility]. He is receiving breathing treatments. He was also noted to have low blood pressures today therefore we will Decrease hydralazinefrom 3 times a day to 2 times a day. acute metabolic encephalopathy secondary to COVID-19 pneumonia - 07/19/2025 somewhat withdrawn. Ordered for regular meals we will re-evaluate mental status in a.m.. Baseline according to patient's daughter is he ambulates with a walker but can not perform complex tasks. He recognizes hisfamily but at times is less aware. - 07/20/2025 patient's mental status has significantly improved from day prior. He remains on room air. Breath sounds are diminished at the bases. He is continued on breathing treatments around the clock. PT consulted for a.m.. COVID-19 pneumonia With superimposed left lower lobe bacterial pneumonia - 07/19/2025 Repeat chest x-ray in a.m.. We will monitor clinically. DuoNebsaround the clock. Currently does not qualify for steroids as he is not requiring oxygen. No remdesivir indicated at this time. Patient states that he did receive his COVID vaccinations however he is unreliable in terms of history. - 07/20/2025 patient denies any cough or shortness of breath. Empirically on ceftriaxone and azithromycin. Responding well. PA lateral Chest x-ray orderedfor a.m.. history of hypertension - 07/19/2025 Continue hydralazine as per patient's home dose. - 07/20/2025 decrease dose of hydralazine 12.5 mg from t.i.d. to b.i.d.. His dose was held last night and this morning. We will monitor. dementia without behavioral disturbance - 07/19/2025 Stable monitor clinically. - 07/20/2025 stable. Monitor. prediabetes A1c 6.2% April of 2025 - 07/19/2025 stable monitor blood sugars on daily labs. - 07/20/2025 stable monitor. CKD stage IIIB - 07/19/2025 Creatinine 1.50, at baseline. We will monitor. - 07/20/2025 Creatinine 1.30 at baseline, continue to monitor. Constipation - ordered for Colace and senna. DVT prophylaxis: Lovenox. Disposition: patient remains on room air and mental status is more alert. PT is consulted for a.m. to see if he can return to [facility] without any new needs. Possible discharge on 07/21/2025. New Orders: New Orders-Lab 07/20/25 04:30 CBC w/Auto Differential [HEM] Routine Comprehensive Metabolic Panel [CHM] Routine Magnesium [CHM] Routine Phosphorus [CHM] Routine TSH, 3rd Generation [CHM] Routine 07/21/25 04:00 CBC w/Auto Differential [HEM] DAILY@0400 Comprehensive Metabolic Panel [CHM] DAILY@0400 Magnesium [CHM] Routine NT Pro-BNP [CHM] Routine Phosphorus [CHM] Routine Procalcitonin [REF] Routine 07/22/25 04:00 CBC w/Auto Differential [HEM] DAILY@0400 Comprehensive Metabolic Panel [CHM] DAILY@0400 07/23/25 04:00 CBC w/Auto Differential [HEM] DAILY@0400 Comprehensive Metabolic Panel [CHM] DAILY@0400 07/24/25 04:00 CBC w/Auto Differential [HEM] DAILY@0400 Comprehensive Metabolic Panel [CHM] DAILY@0400 07/25/25 04:00 CBC w/Auto Differential [HEM] DAILY@0400 Comprehensive Metabolic Panel [CHM] DAILY@0400 New Orders-Radiology 07/21/25 06:00 CHEST AP [DIAG] Routine CHEST PA/LAT [DIAG] Routine New Orders-Nursing Care 07/21/25 10:00 Discharge Plan Screen Needed [RC] ONE New Order-Therapy 07/20/25 12:29 IP PT Eval High Complex 45MIN [TS.PT] ONE Medications 07/20/25 09:00 Aspirin [Aspirin 81 mg Chew Tablet] 81 mg PO DAILY Cholecalciferol (Vitamin D3) [Vitamin D3 1000 Unit Tablet] 2,000 unit PO DAILY Cyanocobalamin (Vitamin B-12) [Vitamin B-12 500 Mcg Tablet] 500 mcg PO DAILY Fenofibrate Nanocrystallized [Tricor 145 mg Tablet] 145 mg PO DAILY Finasteride [Proscar 5 mg Tablet] 5 mg PO DAILY 07/20/25 12:00 Ceftriaxone Sodium [Rocephin 1 Gram Injection] 1 gm Normal Saline [Sodium Chloride 0.9 % 50 ml] 50 ml IVPB Q24H 07/20/25 20:00 Docusate Sodium [Colace 100 mg Capsule] 100 mg PO BID Sennosides [Senokot (8.6 mg) 187 mg Tablet] 17.2 mg PO BID Visit Coding - VISIT CODING Date of Service: 07/20/25 Billing Provider:: RL MARTINES Common Visit Codes: [id number] INP/OBS CARE(MOD) Electronically Generated By:RL MARTINES MD Generated Date/Time: 07/20/25 123 Electronically Signed By: <Electronically signed by RL MARTINES MD> 07/20/252028 Co Signed Electronically By: Co Signed Date/Time: CC: [facility] Work Phone: 1(474) 401-624910-05-2025 Progress note Author RL MARTINES [facility] Note Date/Time July 20, 2025 8: 29pm [facility] [address] [place] [id number] HEALTH INFORMATION MANAGEMENT PROGRESS NOTE : [id number] Signed Patient: WILEY MEEK Acct:[id number] MRUN: [id number] : 1940 Sex: M Loc: ICU AD M Date: 07/19/25 Room/Bed: 357-A DISC Date: Subjective Assessment Date Of Service: 07/20/25 Events Since Admission: WILEY MEEK was admitted to MEDICAL SURGICAL service into room 357 on 07/19/25 at 12:38 for complaints of METABOLIC ENCEPHALOPATHY GENERALIZED WEAKNESS. The patient's laboratory testing and diagnostic testing has been reviewed. Status: Pt Condition Improving, Continue Current Course of Treatment Subjective Note: I was updated by nursing that the patient was found down at the facility and does have a bruise to his left hip. He is seen sitting up eating lunch. He is aware he is in case shocked and however has moments where he thinks he is at [facility]. He was able to tellme that his daughter recently had foot surgery therefore I would be able to update her easily as she is not moving around. He denies any cough or shortness of breath. He did report constipation to the nurse. updated patient's daughter about improvement in symptoms and that he has been up to a chair. Condition: Fair General: Denies: Fever, Chills, Sweats, Weakness, Fatigue, Weight Gain, Weight Loss, Other ENT: Denies: Earache, Ear Discharge, Decreased Hearing, Tinnitus, Nose Congestion, Nose Drainage, Nasal Ulcers, Epitaxis, Sore Throat, Throat Swelling,Hoarseness, Loss Of Voice, Tongue Pain, Tongue Swelling, Lip Swelling, Dental Pain, Cervical, Other Respiratory: Denies: Cough, Shortness of Breath, Wheezing, Sputum Production, Hemoptysis, Dyspnea on Exertion, Pleuritic Pain, Other Cardiovascular: Denies: Chest Pain-Sharp, Chest Pain-Heavy, Orthopnea, Short of Breath, Dyspnea on Exertion, Paroxysmal Noc. Dyspnea, Edema, Palpitations, LightHeadedness, Syncope, Diaphoresis, Claudication, Edema, Other Gastrointestinal: Confirms: Constipation Genitourinary: Denies: Dysuria, Frequency, Incontinence, Hematuria, Retention, Other Musculoskeletal: Denies: Neck Pain, Shoulder Pain, Arm Pain, Back Pain, Hand Pain, Leg Pain, Foot Pain, Other Neurological: Denies: Weakness, Numbness, Incoordination, Change in Speech, Confusion, Seizures, Other Objective Findings Sepsis focused exam performed?: No Review of Systems Completed?: Yes General: Yes: Alert, Cooperative/Pleasant, No acute distress. No: Oriented (X3) HEENT: Yes: Atraumatic, PERRLA, EOMI, PERRL, Mucous membr. moist/pink Neck: Yes: Supple, +2 carotid pulse wo bruit. No: JVD, Thyromegaly Lungs: Yes: Unlabored ( on room air), Diminished ( Diminished at bases). No: Exibits Shortness of [place], Pursed Lip Breathing, Use of Accessory Muscles, Retracting Cardiovascular: Yes: Regular rate, Normal S2, Normal S1, No murmurs, Rubber Curer Rhythm (Sinus Rhythm). No: Gallops, Rubs, Ectopy Abdomen: Yes: Bowel Sounds X4, Soft, No Tenderness, Flatus. No: Hepatospenomegaly, Masses, Nausea/Vomiting, Emesis Present, Constipation, Diarrhea Genitourinary/Rectal: Yes: Voiding (Sufficiently). No: Genital Discharge, Bladder Distention, Joe Catheter Extremities: Yes: Normal pulses. No: Clubbing, Cyanosis, Edema, No tenderness/swelling, Bilateral Leg Edema, Mottling noted Skin: No: Rashes, Skin Breakdown, Significant lesions, Open Wound Present Neurological: Yes: Speech Clear, Normal tone, Sensation intact, Cranial nerves 3-12 NL, Reflexes 2+, Cognitive Ability Impaire Psych/Mental Status: Yes: Mental status NL, Mood Appropriate. No: Hallucinations Vitals and I&O: Vital Signs Temperature 97.2 F L 07/20/25 08:00 Pulse Rate 89 07/20/25 10:43 Respiratory Rate 16 07/20/25 10:43 Blood Pressure 131/86 07/20/25 08:00 O2 Sat by Pulse Oximetry(%) 96 07/20/25 10:43 FiO2 - Manual Entry Intake & Output 07/19/25 07/20/25 07/20/25 23:59 11:59 23:59 Intake Total 1300 Balance 1300 Weight 191 lb 185 lb 14.4 oz Intake: IV Intake 1300 Rocephin 1 Gram Injection 50 1 gm In Sodium Chloride 0.9 % 50 ml 50 ml @ 100 mls/hr IVPB STAT ST[facility] Rx#: [id number] Sodium Chloride 0.9 % 1000 1000 ml 1,000 ml @ 999 mls/hr IV .Q1H1M [facility] Rx#: [id number] Zithromax 500 mg 250 Injection 500 mg In Sodium Chloride 0.9 % 250 ml 250 ml @ 250 mls/hr IVPB Q24H [facility] Rx#: [id number] Other: Output Urine Nonnumeric/ Comment Urine xlg incont lg incont Laboratory-Last 48 hrs: 07/20/25 04:30 07/20/25 04:30 Laboratory Results-last 24 hrs 07/19/25 10:40: Creatinine 1.50 H, Est GFR (MDRD) Af Amer 54 A, Est GFR (MDRD) Non-Af 45 A, Glucose 121 H, AST 55 H, Alkaline Phosphatase 52 L, Albumin 3.3 L, Albumin/Globulin Ratio 0.9 L 07/19/25 11:15: RBC 3.91 L, MCV 96.7 H, MCH 32.0 H, Neut % (Auto) 88.9 H, Lymph % (Auto) 4.7 L, [place] % (Auto) 5.2 L, Eos % (Auto) 0.8 L, Absolute Neuts (auto) 7.54 H, Absolute Lymphs (auto) 0.40 L 07/19/25 11:21: Urine Protein 15 A, Urine Blood 10 A 07/19/25 12:35: SARS-CoV-2 Ag (Rapid) Positive A 07/19/25 12:50: VBG pH 7.335 L, VBG pO2 55.1 H, VBG HCO3 25.0 H, VBG O2 Saturation 87.7 H, VBG Carboxyhemoglobin 3.2 H 07/20/25 04:30: Creatinine 1.30 H, Est GFR (MDRD) Non-Af 53 A, Glucose 127 H, AST 51 H, Alkaline Phosphatase 44 L, Albumin 2.8 L, Albumin/Globulin Ratio 0.8 L 07/20/25 04:30: RBC 3.63 L, Hgb 11.7 L, Hct 35.2 L, MCV 97.0 H, MCH 32.2 H, Neut% (Auto) 76.8 H, Lymph % (Auto) 12.1 L, Absolute Lymphs (auto) 0.60 L Radiology-Impressions: See radiology reports in electronic medical record. Impressions - Problems (1) Fall from standing Problems: Encounter type: initial encounter Qualified Code(s): W19.XXXA - Unspecifiedfall, initial encounter Status: Acute Priority: High Onset Date: ~07/19/25 Present on admission?: Yes Current Visit: Yes (2) Acute metabolic encephalopathy Status: Resolved Priority: High Onset Date: ~07/19/25 Present on admission?: Yes Current Visit: No (3) Pneumonia due to COVID-19 virus Status: Acute Priority: High Onset Date: ~07/19/25 Present on admission?: Yes Current Visit: No (4) Bacterial pneumonia Additional Text: Left lower lobe Status: Acute Priority: High Present on admission?: Yes Current Visit: Yes (5) Chronic renal failure (CRF), stage 3b Status: Chronic Priority: Medium Present on admission?: Yes Current Visit: No (6) Prediabetes Additional Text: A1c 6.2% Status: Chronic Priority: Medium Current Visit: No (7) Dementia without behavioral disturbance Status: Chronic Priority: Medium Present on admission?: Yes Current Visit: Yes (8) Essential hypertension Status: Acute Priority: Medium Present on admission?: Yes Current Visit: Yes Plan/Treatment Current Plan: Continue Current Course of Treatment Plan: Assessment and plan acute metabolic encephalopathy secondary to COVID-19 pneumonia COVID-19 pneumonia With superimposed left lower lobe bacterial pneumonia history of hypertension dementia without behavioral disturbance prediabetes CKD stage IIIB Constipation. chief complaint: Altered mental status this is an 85-year-old man who resides at assisted living presented to the emergency department with altered mental status. At baseline he has dementia attimes lucid at times not. No able to perform complex tasks. History was obtained from the patient's daughter as the patient is somewhat encephalopathic and could not recall why he came into the hospital. Chest x-ray demonstrated a left lower lobe infiltrate. He is somewhat withdrawn on examination. Peripheral saturations were 96% on room air. An VBG was notable for 7.33/40/55/25 on room air. Lactic acid was found to be normal. Rapid COVID swab was found to be negative. He was admitted for acute metabolic encephalopathy secondary to COVID-19. As per discussion with the patient's daughter he is a DNR but may intubate in respiratory arrest or failure. upon arrival to the floor the patient is noted to be slightly tachypneic with diminished breath sounds at the bases. He is currently 94% on room air. An VBGthat was performed in the emergency room shows mild hypercapnia at 7.33/40 8/55 /25 consistent with a mild uncompensated hypercapnic respiratory failure. He is high risk for decompensation. His daughter was informed of the admission andhe is currently a DNR but may intubate in respiratory failure or respiratory arrest. Chest x-ray is consistent with a left lower lobe infiltrate. He is started on ceftriaxone and azithromycin as well as duo nebs around the clock. on 07/20/2025 the patient is not as lethargic as on admission. His peripheral saturations remained 94% on room air. He is feeding himself and eating well. He is seen on the commode as he reported some constipation earlier in the day. Renal function is at baseline with a known history of CKD stage IIIB but is currently better than that. He is continued on ceftriaxone and azithromycin. He is awaiting physical therapy evaluation to see if he is safe for discharge back to [facility]. He is receiving breathing treatments. He was also noted to have low blood pressures today therefore we will Decrease hydralazinefrom 3 times a day to 2 times a day. acute metabolic encephalopathy secondary to COVID-19 pneumonia - 07/19/2025 somewhat withdrawn. Ordered for regular meals we will re-evaluate mental status in a.m.. Baseline according to patient's daughter is he ambulates with a walker but can not perform complex tasks. He recognizes hisfamily but at times is less aware. - 07/20/2025 patient's mental status has significantly improved from day prior. He remains on room air. Breath sounds are diminished at the bases. He is continued on breathing treatments around the clock. PT consulted for a.m.. COVID-19 pneumonia With superimposed left lower lobe bacterial pneumonia - 07/19/2025 Repeat chest x-ray in a.m.. We will monitor clinically. DuoNebsaround the clock. Currently does not qualify for steroids as he is not requiring oxygen. No remdesivir indicated at this time. Patient states that he did receive his COVID vaccinations however he is unreliable in terms of history. - 07/20/2025 patient denies any cough or shortness of breath. Empirically on ceftriaxone and azithromycin. Responding well. PA lateral Chest x-ray orderedfor a.m.. history of hypertension - 07/19/2025 Continue hydralazine as per patient's home dose. - 07/20/2025 decrease dose of hydralazine 12.5 mg from t.i.d. to b.i.d.. His dose was held last night and this morning. We will monitor. dementia without behavioral disturbance - 07/19/2025 Stable monitor clinically. - 07/20/2025 stable. Monitor. prediabetes A1c 6.2% April of 2025 - 07/19/2025 stable monitor blood sugars on daily labs. - 07/20/2025 stable monitor. CKD stage IIIB - 07/19/2025 Creatinine 1.50, at baseline. We will monitor. - 07/20/2025 Creatinine 1.30 at baseline, continue to monitor. Constipation - ordered for Colace and senna. DVT prophylaxis: Lovenox. Disposition: patient remains on room air and mental status is more alert. PT is consulted for a.m. to see if he can return to [facility] without any new needs. Possible discharge on 07/21/2025. New Orders: New Orders-Lab 07/20/25 04:30 CBC w/Auto Differential [HEM] Routine Comprehensive Metabolic Panel [CHM] Routine Magnesium [CHM] Routine Phosphorus [CHM] Routine TSH, 3rd Generation [CHM] Routine 07/21/25 04:00 CBC w/Auto Differential [HEM] DAILY@0400 Comprehensive Metabolic Panel [CHM] DAILY@040 Magnesium [CHM] Routine NT Pro-BNP [CHM] Routine Phosphorus [CHM] Routine Procalcitonin [REF] Routine 07/22/25 04:00 CBC w/Auto Differential [HEM] DAILY@0400 Comprehensive Metabolic Panel [CHM] DAILY@0400 07/23/25 04:00 CBC w/Auto Differential [HEM] DAILY@0400 Comprehensive Metabolic Panel [CHM] DAILY@0400 07/24/25 04:00 CBC w/Auto Differential [HEM] DAILY@0400 Comprehensive Metabolic Panel [CHM] DAILY@0400 07/25/25 04:00 CBC w/Auto Differential [HEM] DAILY@0400 Comprehensive Metabolic Panel [CHM] DAILY@0400 New Orders-Radiology 07/21/25 06:00 CHEST AP [DIAG] Routine CHEST PA/LAT [DIAG] Routine New Orders-Nursing Care 07/21/25 10:00 Discharge Plan Screen Needed [RC] ONE New Order-Therapy 07/20/25 12:29 IP PT Eval High Complex 45MIN [TS.PT] ONE Medications 07/20/25 09:00 Aspirin [Aspirin 81 mg Chew Tablet] 81 mg PO DAILY Cholecalciferol (Vitamin D3) [Vitamin D3 1000 Unit Tablet] 2,000 unit PO DAILY Cyanocobalamin (Vitamin B-12) [Vitamin B-12 500 Mcg Tablet] 500 mcg PO DAILY Fenofibrate Nanocrystallized [Tricor 145 mg Tablet] 145 mg PO DAILY Finasteride [Proscar 5 mg Tablet] 5 mg PO DAILY 07/20/25 12:00 Ceftriaxone Sodium [Rocephin 1 Gram Injection] 1 gm Normal Saline [Sodium Chloride 0.9 % 50 ml] 50 ml IVPB Q24H 07/20/25 20:00 Docusate Sodium [Colace 100 mg Capsule] 100 mg PO BID Sennosides [Senokot (8.6 mg) 187 mg Tablet] 17.2 mg PO BID Visit Coding - VISIT CODING Date of Service: 07/20/25 Billing Provider:: RL MARTINES Common Visit Codes: [id number] INP/OBS CARE(MOD) Electronically Generated By:RL MARTINES MD Generated Date/Time: 07/20/25 1232 Electronically Signed By: <Electronically signed by RL MARTINES MD> 07/20/252028 Co Signed Electronically By: Co Signed Date/Time: CC: [facility] Work Phone: [phone] 389-740710-05-[address] [address] HEALTH INFORMATION MANAGEMENT PROGRESS NOTE : [phone] Signed Patient: WILEY MEEK Acct:[id number] MRUN: [id number] : 1940 Sex: M Loc: ICU AD M Date: 07/19/25 Room/Bed: 357-A DISC Date: Subjective Assessment Date Of Service: 07/20/25 Events Since Admission: WILEY MEEK was admitted to MEDICAL SURGICAL service into room 357 on 07/19/25 at 12:38 for complaints of METABOLIC ENCEPHALOPATHY GENERALIZED WEAKNESS. The patient's laboratory testing anddiagnostic testing has been reviewed. Status: Pt Condition Improving, Continue Current Course of Treatment Subjective Note: I was updated by nursing that the patient was found down at the facility and does have a bruise to his left hip. He is seen sitting up eating lunch. He is aware he is in case shocked and however has moments wherehe thinks he is at [facility]. He was able to tellme that his daughter recently had foot surgerytherefore I would be able to update her easily as she is not moving around. He denies any cough or shortness of breath. He did report constipation to the nurse. updated patient's daughter about improvement in symptoms and that he has been up to a chair. Condition: Fair General: Denies: Fever, Chills, Sweats, Weakness, Fatigue, Weight Gain, Weight Loss, Other ENT: Denies: Earache, Ear Discharge, Decreased Hearing, Tinnitus, Nose Congestion, Nose Drainage, Nasal Ulcers, Epitaxis, Sore Throat, Throat Swelling,Hoarseness, Loss Of Voice, Tongue Pain, Tongue Swelling, Lip Swelling, Dental Pain, Cervical, Other Respiratory: Denies: Cough, Shortness of Breath, Wheezing, Sputum Production, Hemoptysis, Dyspnea on Exertion, Pleuritic Pain, Other Cardiovascular: Denies: Chest Pain-Sharp, Chest Pain-Heavy, Orthopnea, Short of Breath, Dyspnea on Exertion, Paroxysmal Noc. Dyspnea, Edema, Palpitations, LightHeadedness, Syncope, Diaphoresis, Claudication, Edema, Other Gastrointestinal: Confirms: Constipation Genitourinary: Denies: Dysuria, Frequency, Incontinence, Hematuria, Retention, Other Musculoskeletal: Denies: Neck Pain, Shoulder Pain, Arm Pain, Back Pain, Hand Pain, Leg Pain, Foot Pain, Other Neurological: Denies: Weakness, Numbness, Incoordination, Change in Speech, Confusion, Seizures, Other Objective Findings Sepsis focused exam performed?: No Review of Systems Completed?: Yes General: Yes: Alert, Cooperative/Pleasant, No acute distress. No: Oriented (X3) HEENT: Yes: Atraumatic, PERRLA, EOMI, PERRL, Mucous membr. moist/pink Neck: Yes: Supple, +2 carotid pulse wo bruit. No: JVD, Thyromegaly Lungs: Yes: Unlabored ( on room air), Diminished ( Diminished at bases). No: Exibits Shortness of Marisa, Pursed Lip Breathing, Use of Accessory Muscles, Retracting Cardiovascular: Yes: Regular rate, Normal S2, Normal S1, No murmurs, Rubber Curer Rhythm (Sinus Rhythm). No: Gallops, Rubs, Ectopy Abdomen: Yes: Bowel Sounds X4, Soft, No Tenderness, Flatus. No: Hepatospenomegaly, Masses, Nausea/Vomiting, Emesis Present, Constipation, Diarrhea Genitourinary/Rectal: Yes: Voiding (Sufficiently). No: Genital Discharge, Bladder Distention, FoleyCatheter Extremities: Yes: Normal pulses. No: Clubbing, Cyanosis, Edema, No tenderness/swelling, Bilateral Leg Edema, Mottling noted Skin: No: Rashes, Skin Breakdown, Significant lesions, Open Wound Present Neurological: Yes: Speech Clear, Normal tone, Sensation intact, Cranial nerves 3-12 NL, Reflexes 2+, Cognitive Ability Impaire Psych/Mental Status: Yes: Mental status NL, Mood Appropriate. No: Hallucinations Vitals and I&O: Vital Signs Temperature 97.2 F L 07/20/25 08:00 Pulse Rate 89 07/20/25 10:43 Respiratory Rate 16 07/20/25 10:43 Blood Pressure 131/86 07/20/25 08:00 O2 Sat by Pulse Oximetry(%) 96 07/20/25 10:43 FiO2 - Manual Entry Intake & Output 07/19/25 07/20/25 07/20/25 23:59 11:59 23:59 Intake Total 1300 Balance 1300 Weight 191 lb 185 lb 14.4 oz Intake: IV Intake 1300 Rocephin 1 Gram Injection 50 1 gm In Sodium Chloride 0.9 % 50 ml 50 ml @ 100 mls/hr IVPB STAT STA Rx#: [id number] Sodium Chloride 0.9 % 1000 1000 ml 1,000 ml @ 999 mls/hr IV .Q1H1M [facility] Rx#: [id number] Zithromax 500 mg 250 Injection 500 mg In Sodium Chloride 0.9 % 250 ml 250 ml @ 250 mls/hr IVPB Q24H [facility] Rx#: [id number] Other: Output Urine Nonnumeric/ Comment Urine xlg incont lg incont Laboratory-Last 48 hrs: 07/20/25 04:30 07/20/25 04:30 Laboratory Results-last 24 hrs 07/19/25 10:40: Creatinine 1.50 H, Est GFR (MDRD) Af Amer 54 A, Est GFR (MDRD) Non-Af 45 A, Lunwfmo039 H, AST 55 H, Alkaline Phosphatase 52 L, Albumin 3.3 L, Albumin/Globulin Ratio 0.9 L 07/19/25 11:15: RBC 3.91 L, MCV 96.7 H, MCH 32.0 H, Neut % (Auto) 88.9 H, Lymph % (Auto) 4.7 L, [place] % (Auto) 5.2 L, Eos % (Auto) 0.8 L, Absolute Neuts (auto) 7.54 H, Absolute Lymphs (auto) 0.40 L 07/19/25 11:21: Urine Protein 15 A, Urine Blood 10 A 07/19/25 12:35: SARS-CoV-2 Ag (Rapid) Positive A 07/19/25 12:50: VBG pH 7.335 L, VBG pO2 55.1 H, VBG HCO3 25.0 H, VBG O2 Saturation 87.7 H, VBG Carboxyhemoglobin 3.2 H 07/20/25 04:30: Creatinine 1.30 H, Est GFR (MDRD) Non-Af 53 A, Glucose 127 H, AST 51 H, Alkaline Phosphatase 44 L, Albumin 2.8 L, Albumin/Globulin Ratio 0.8 L 07/20/25 04:30: RBC 3.63 L, Hgb 11.7 L, Hct 35.2 L, MCV 97.0 H, MCH 32.2 H, Neut% (Auto) 76.8 H, Lymph % (Auto) 12.1 L, Absolute Lymphs (auto) 0.60 L Radiology-Impressions: See radiology reports in electronic medical record. Impressions - Problems (1) Fall from standing Problems: Encounter type: initial encounter Qualified Code(s): W19.XXXA - Unspecifiedfall, initial encounter Status: Acute Priority: High Onset Date: ~07/19/25 Present on admission?: Yes Current Visit: Yes (2) Acute metabolic encephalopathy Status: Resolved Priority: High Onset Date: ~07/19/25 Present on admission?: Yes Current Visit: No (3) Pneumonia due to COVID-19 virus Status: Acute Priority: High Onset Date: ~07/19/25 Present on admission?: Yes Current Visit: No (4) Bacterial pneumonia Additional Text: Left lower lobe Status: Acute Priority: High Present on admission?: Yes Current Visit: Yes (5) Chronic renal failure (CRF), stage 3b Status: Chronic Priority: Medium Present on admission?: Yes Current Visit: No (6) Prediabetes Additional Text: A1c 6.2% Status: Chronic Priority: Medium Current Visit: No (7) Dementia without behavioral disturbance Status: Chronic Priority: Medium Present on admission?: Yes Current Visit: Yes (8) Essential hypertension Status: Acute Priority: Medium Present on admission?: Yes Current Visit: Yes Plan/Treatment Current Plan: Continue Current Course of Treatment Plan: Assessment and plan acute metabolic encephalopathy secondary to COVID-19 pneumonia COVID-19 pneumonia With superimposed left lower lobe bacterial pneumonia history of hypertension dementia without behavioral disturbance prediabetes CKD stage IIIB Constipation. chief complaint: Altered mental status this is an 85-year-old man who resides at assisted living presented to the emergency department with altered mental status. At baseline he has dementia attimes lucid at times not. No able to perform complex tasks. History was obtained from the patient's daughter as the patient is somewhat encephalopathic and could not recall why he came into the hospital. Chest x-ray demonstrated a left lower lobe infiltrate. He is somewhat withdrawn on examination. Peripheral saturations were 96% on room air. An VBG was notable for 7.33/40/55/25 on room air. Lactic acid was found to be normal. Rapid COVID swab was found to be negative. He was admitted for acute metabolic encephalopathy secondary to COVID-19. As per discussion with the patient's daughter he is a DNR but may intubate in respiratory arrest orfailure. upon arrival to the floor the patient is noted to be slightly tachypneic with diminished breath sounds at the bases. He is currently 94% on room air. An VBGthat was performed in the emergency room shows mild hypercapnia at 7.33/40 8/55 /25 consistent with a mild uncompensated hypercapnic respiratory failure. He is high risk for decompensation. His daughter was informed of the admission andhe is currently a DNR but may intubate in respiratory failure or respiratory arrest. Chest x-ray is consistent with a left lower lobe infiltrate. He is started on ceftriaxone and azithromycin as well as duo nebs around the clock. on 07/20/2025 the patient is not as lethargic as on admission. His peripheral saturations remained 94% on room air. He is feeding himself and eating well. He is seen on the commode as he reported some constipation earlier in the day. Renal function is at baseline with a known history of CKD stage IIIB but is currently better than that. He is continued on ceftriaxone and azithromycin. He is awaiting physical therapy evaluation to see if he is safe for discharge back to [facility]. He is receiving breathing treatments. He was also noted to have low blood pressures today therefore we will Decrease hydralazinefrom 3 times a day to 2 times a day. acute metabolic encephalopathy secondary to COVID-19 pneumonia - 07/19/2025 somewhat withdrawn. Ordered for regular meals we will re-evaluate mental status in a.m.. Baseline according to patient's daughter is he ambulates with a walker but can not perform complex tasks. He recognizes hisfamily but at times is less aware. - 07/20/2025 patient's mental status has significantly improved from day prior. He remains on room air. Breath sounds are diminished at the bases. He is continued on breathing treatments around the clock. PT consulted for a.m.. COVID-19 pneumonia With superimposed left lower lobe bacterial pneumonia - 07/19/2025 Repeat chest x-ray in a.m.. We will monitor clinically. DuoNebsaround the clock. Currently does not qualify for steroids as he is not requiring oxygen. No remdesivir indicated at this time. Patient states that he did receive his COVID vaccinations however he is unreliable in terms of history. - 07/20/2025 patient denies any cough or shortness of breath. Empirically on ceftriaxone and azithromycin. Responding well. PA lateral Chest x-ray orderedfor a.m.. history of hypertension - 07/19/2025 Continue hydralazine as per patient's home dose. - 07/20/2025 decrease dose of hydralazine 12.5 mg from t.i.d. to b.i.d.. His dose was held last night and this morning. We will monitor. dementia without behavioral disturbance - 07/19/2025 Stable monitor clinically. - 07/20/2025 stable. Monitor. prediabetes A1c 6.2% April of 2025 - 07/19/2025 stable monitor blood sugars on daily labs. - 07/20/2025 stable monitor. CKD stage IIIB - 07/19/2025 Creatinine 1.50, at baseline. We will monitor. - 07/20/2025 Creatinine 1.30 at baseline, continue to monitor. Constipation - ordered for Colace and senna. DVT prophylaxis: Lovenox. Disposition: patient remains on room air and mental status is more alert. PT is consulted for a.m. to see if he can return to [facility] without any new needs. Possible discharge on 07/21/2025. New Orders: New Orders-Lab 07/20/25 04:30 CBC w/Auto Differential [HEM] Routine Comprehensive Metabolic Panel [CHM] Routine Magnesium [CHM] Routine Phosphorus [CHM] Routine TSH, 3rd Generation [CHM] Routine 07/21/25 04:00 CBC w/Auto Differential [HEM] DAILY@0400 Comprehensive Metabolic Panel [CHM] DAILY@0400 Magnesium [CHM] Routine NT Pro-BNP [CHM] Routine Phosphorus [CHM] Routine Procalcitonin [REF] Routine 07/22/25 04:00 CBC w/Auto Differential [HEM] DAILY@0400 Comprehensive Metabolic Panel [CHM] DAILY@0400 07/23/25 04:00 CBC w/Auto Differential [HEM] DAILY@0400 Comprehensive Metabolic Panel [CHM] DAILY@0400 07/24/25 04:00 CBC w/Auto Differential [HEM] DAILY@0400 Comprehensive Metabolic Panel [CHM] DAILY@0400 07/25/25 04:00 CBC w/Auto Differential [HEM] DAILY@0400 Comprehensive Metabolic Panel [CHM] DAILY@0400 New Orders-Radiology 07/21/25 06:00 CHEST AP [DIAG] Routine CHEST PA/LAT [DIAG] Routine New Orders-Nursing Care 07/21/25 10:00 Discharge Plan Screen Needed [RC] ONE New Order-Therapy 07/20/25 12:29 IP PT Eval High Complex 45MIN [TS.PT] ONE Medications 07/20/25 09:00 Aspirin [Aspirin 81 mg Chew Tablet] 81 mg PO DAILY Cholecalciferol (Vitamin D3) [Vitamin D3 1000 Unit Tablet] 2,000 unit PO DAILY Cyanocobalamin (Vitamin B-12) [Vitamin B-12 500 Mcg Tablet] 500 mcg PO DAILY Fenofibrate Nanocrystallized [Tricor 145 mg Tablet] 145 mg PO DAILY Finasteride [Proscar 5 mg Tablet] 5 mg PO DAILY 07/20/25 12:00 Ceftriaxone Sodium [Rocephin 1 Gram Injection] 1 gm Normal Saline [Sodium Chloride 0.9 % 50 ml] 50 ml IVPB Q24H 07/20/25 20:00 Docusate Sodium [Colace 100 mg Capsule] 100 mg PO BID Sennosides [Senokot (8.6 mg) 187 mg Tablet] 17.2 mg PO BID Visit Coding - VISIT CODING Date of Service: 07/20/25 Billing Provider:: RL MARTINES Common Visit Codes: [id number] INP/OBS CARE(MOD) Electronically Generated By:RL MARTINES MD Generated Date/Time: 07/20/25 1232 Electronically Signed By: 07/20/252028 Co Signed Electronically By: Co Signed Date/Time: CC: [facility]10-05-2025 History and physical note Author RL MARTINES [facility] Note Date/Time July 20, 2025 8: 51am [facility] [address] [place] [id number] HEALTH INFORMATION MANAGEMENT HISTORY AND PHYSICAL : [phone] Signed Patient: WILEY MEEK Acct:[id number] MRUN: [id number] : 1940 Sex: M Loc: ICU AD M Date: 07/19/25 Room/Bed: 357-A DISC Date: History of Present Illness Date Of Admission: 07/19/25 Chief Complaint: altered mental status at assisted living Onset of Chief Complaint: 07/19/25 History of Present Illness: Visit History WILEY MEEK is a 85 year old M patient of JAEL ASHLEY DO. Patient was admitted from to room 357, bed A on 07/19/25 12:38. Pt was evaluated for complaints of , then admitted to [facility] for METABOLIC ENCEPHALOPATHY GENERALIZED WEAKNESS. WI[facility] [place] for further evaluation and treatment. Pt was seen and evaluated on 07/19/25 1505, by this provider, RL MARTINES MD. the patient's history may be unreliable as he has underlying dementia. Historyis obtained from the patient and his daughter Tyree was called. According to the patient he took a fall this morning but could not tell me why he was admitted today. He denies any shortness of breath or lung pathology. He denies any history of blood clots. He denies any cough. His daughter Tyree states that she was notified that the patient was going to be sent into the hospital due to altered mental status. his daughter states that he does not use any oxygen at home. He at baseline recognizes family and at times is more lucid than others at times he is in a daze. She states that heis ambulating currently with a walker. 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 We discussed his code status which is do not resuscitate if his heart were to stop however if he has increased work of breathing or respiratory failure we mayintubate for reversible conditions. This was discussed with Tyree his daughterat [phone]. Patient's review of system may be an accurate as he mostly answers 0h yea to all. Allergies/Adverse Reactions: morphine Allergy (Verified 10/22/24 18:11) Sulfa (Sulfonamide Antibiotics) Allergy (Verified 10/22/24 18:11) Home Medications: Patient History Fenofibrate Nanocrystallized [Fenofibrate] 145 mg PO DAILY 12/08/17 [History Confirmed 07/19/25] Finasteride 5 mg PO DAILY 12/08/17 [History Confirmed 07/19/25] Aspirin [Aspirin 81 mg Chew Tablet] 81 mg PO DAILY 10/13/20 [History Confirmed 07/19/25] Donepezil HCl [Aricept 5 mg Tablet] 5 mg PO QPM 10/13/20 [History Confirmed 07/19/25] Tamsulosin HCl [Flomax 0.4 mg Capsule] 0.4 mg PO QPM 10/13/20 [History Confirmed 07/19/25] Divalproex Sodium [Depakote] 125 mg PO BID 08/11/21 [History Confirmed 07/19/25] Acetaminophen [Acetaminophen Extra Strength] 500 mg PO BID 06/01/23 [History Confirmed 07/19/25] Cimetidine 400 mg PO BID 06/01/23 [History Confirmed 07/19/25] Dexlansoprazole [Dexilant] 60 mg PO DAILY 06/01/23 [History Confirmed 07/19/25] Cholecalciferol (Vitamin D3) [Vitamin D3 1000 Unit Tablet] 2,000 unit PO DAILY 10/22/24 [History Confirmed 07/19/25] Cyanocobalamin (Vitamin B-12) [Vitamin B-12 500 Mcg Tablet] 500 mcg PO DAILY 10/22/24 [History Confirmed 07/19/25] Lactobacillus Acidophilus [Acidophilus] 100 mg PO DAILY 10/22/24 [History Confirmed 07/19/25] Pravastatin Sodium 80 mg PO QHS 10/23/24 [History Confirmed 07/19/25] Cholecalciferol (Vitamin D3) [Vitamin D3 1000 Unit Tablet] 2,000 unit PO DAILY 07/19/25 [History Confirmed 07/19/25] Cyanocobalamin (Vitamin B-12) [Vitamin B12] 5,000 mcg PO DAILY 07/19/25 [History Confirmed 07/19/25] Hydralazine HCl 12.5 mg PO TID 07/19/25 [History Confirmed 07/19/25] Past Social History Highest Educational Level: High School Able to Read: Yes Able to Write: Yes Smoking Status: Former Smoker Alcohol Use: Never Drugs: None - Sweet/Gender ID What is your current Gender Identity? Choose all that Apply: Male Define your Sexual Orientation?: Straight/Heterosexual - Crane-Suicide Severity Rating Scale 1) Wish to be :: No 2) Suicidal Thoughts:: No 6) Suicidal Behavior Question (A): LIFETIME: No 6) Suicidal Behavior Question (B): PAST 3 MONTHS: No Past Medical History Hx Ear/Nose/Throat Disorders: Yes PMH--Ear/Nose/Throat: Confirms: Cataracts, Farsighted Past Surgical Hx-ENT: Confirms: Cataract Removal-Right, Cataract Removal-Left Hx Neurological Disorder: Yes PMH-Neurological: Confirms: Dementia, Memory Loss Hx Psychosocial Problems: Yes PMH--Psychological & Treatments: Confirms: Depression Hx Cardiac Disorders: Yes PMH--Cardiovascular: Confirms: HTN, Hypercholesterolemia Hx Respiratory Disorders: Yes (reviewed ) PMH--Respiratory: Confirms: Asthma, Bronchitis Hx Endocrine Disorders: Yes PMH--Endocrine History: Confirms: Diabetes Type 2 [id number]:: heart burn Hx Musculoskeletal Disorders: No PMH--Musculoskeletal: Confirms: Arthritis Hx Reproductive Disorders: No Hx Genitourinary Disorders: Yes PMH--Genitourinary: Confirms: UTI Hx Gastrointestinal Disorders: Yes PMH--Gastrointestinal: Confirms: GERD, Hernia Past Surgical Hx--GI: Confirms: Appendectomy Hx Cancer: No Other PMH: Confirms: Chicken Pox, Measles, Mumps Family Medical History - Family Medical History Father Living Status: Cardiac History: Cardiac Disorder(s), Myocardial Infarction Mother Living Status: Cancer History: Breast Cancer Physical Exam Sepsis focused exam performed?: No Review of Systems Completed?: Yes Vital Signs: Vital Signs (72 hours) 07/19/25 07/19/25 07/19/25 10:32 10:43 10:47 Temperature 98 F 98 F Pulse Rate 98 Pulse Rate [ 98 98 Left Pulse Ox] Respiratory 18 18 Rate Blood Pressure Blood Pressure 120/72 120/72 [Left Arm] O2 Sat by Pulse 96 96 95 Oximetry(%) 07/19/25 07/19/25 07/19/25 10:49 10:50 11:00 Temperature Pulse Rate 98 98 Pulse Rate [ Left Pulse Ox] Respiratory Rate Blood Pressure 131/72 Blood Pressure [Left Arm] O2 Sat by Pulse 94 L 94 L 94 L Oximetry(%) 07/19/25 07/19/25 07/19/25 11:10 11:20 11:38 Temperature Pulse Rate 96 89 92 Pulse Rate [ Left Pulse Ox] Respiratory Rate Blood Pressure Blood Pressure [Left Arm] O2 Sat by Pulse 96 96 97 Oximetry(%) 07/19/25 07/19/25 07/19/25 11:40 11:50 11:52 Temperature Pulse Rate 92 92 90 Pulse Rate [ Left Pulse Ox] Respiratory Rate Blood Pressure 137/87 Blood Pressure [Left Arm] O2 Sat by Pulse 96 96 97 Oximetry(%) 07/19/25 07/19/25 07/19/25 12:00 12:01 12:10 Temperature Pulse Rate 91 95 91 Pulse Rate [ Left Pulse Ox] Respiratory Rate Blood Pressure 149/94 H Blood Pressure [Left Arm] O2 Sat by Pulse 96 97 97 Oximetry(%) 07/19/25 07/19/25 07/19/25 12:30 13:00 13:30 Temperature 97.9 F Pulse Rate Pulse Rate [ Left Pulse Ox] Respiratory Rate Blood Pressure 152/92 H 139/91 H 138/92 H Blood Pressure [Left Arm] O2 Sat by Pulse Oximetry(%) 07/19/25 07/19/25 07/19/25 14:10 14:20 14:30 Temperature Pulse Rate 98 97 98 Pulse Rate [ Left Pulse Ox] Respiratory Rate Blood Pressure Blood Pressure [Left Arm] O2 Sat by Pulse 95 95 95 Oximetry(%) General: Yes: Alert, Confused, Cooperative/Pleasant, No acute distress HEENT: Yes: Atraumatic, PERRLA, EOMI. No: Mucous membr. moist/pink ( thrush) Lungs: Yes: Labored ( using accessory muscles to breathe lifting and shoulders),Diminished. No: Shortness Of Breath Scale Cardiovascular: Yes: Regular rate, Normal S2, Normal S1. No: No murmurs, Gallops, Rubs Abdomen: Yes: Bowel Sounds X4, Soft, No Tenderness, Flatus (Present), Bowel Pattern. No: Hepatospenomegaly, Masses, Nausea/Vomiting, Emesis Present, Constipation, Diarrhea Extremities: Yes: Normal pulses. No: Clubbing, Cyanosis, Edema, No tenderness/swelling, Bilateral Leg Edema, Mottling noted Skin: No: Rashes, Skin Breakdown, Significant lesions, Open Wound Present, Skin Tear Neurological: Yes: Speech Clear, Strength Normal X4 ext, Normal tone, Sensation intact, Cranial nerves 3-12 NL, Reflexes 2+, Cognitive Ability Impaire ( mildly encephalopathic closes his eyes while I am asking him questions and forgets to answer.) Psych/Mental Status: Yes: Depressed/Withdrawn. No: Mental status NL, Hallucinations Genitourinary/Rectal: Yes: Voiding (Sufficiently), Normal Rectal Tone. No: Genital Discharge, Bladder Distention, Joe Catheter, Rectal Masses Breast Exam: No: Lump, Skin Changes, Ulcers, Nipple Drainage, Pain Impressions - Problems (1) Acute metabolic encephalopathy Status: Acute Priority: High Onset Date: ~07/19/25 Present on admission?: Yes Current Visit: No (2) Pneumonia due to COVID-19 virus Status: Acute Priority: High Onset Date: ~07/19/25 Present on admission?: Yes Current Visit: No (3) Chronic renal failure (CRF), stage 3b Status: Chronic Priority: Medium Present on admission?: Yes Current Visit: No (4) Prediabetes Additional Text: A1c 6.2% Status: Chronic Priority: Medium Present on admission?: Yes Current Visit: No (5) Bacterial pneumonia Additional Text: Left lower lobe Status: Acute Priority: High Present on admission?: Yes Current Visit: Yes (6) Dementia without behavioral disturbance Status: Chronic Priority: Medium Present on admission?: Yes Current Visit: Yes (7) Essential hypertension Status: Acute Priority: Medium Present on admission?: Yes Current Visit: Yes Plan/Treatment Current Plan: See New Orders Plan: Assessment and plan acute metabolic encephalopathy secondary to COVID-19 pneumonia COVID-19 pneumonia With superimposed left lower lobe bacterial pneumonia history of hypertension dementia without behavioral disturbance prediabetes CKD stage IIIB chief complaint: Altered mental status this is an 85-year-old man who resides at assisted living presented to the emergency department with altered mental status. At baseline he has dementia. History was obtained from the patient's daughter as the patient is somewhat encephalopathic and could not recall why he came into the hospital. Chest x-raydemonstrated a left lower lobe infiltrate. He is somewhat withdrawn on examination. Peripheral saturations were 96% on room air. An VBG was notable for 7.33/40/55/25 on room air. Lactic acid was found to be normal. Rapid COVID swab was found to be negative. He was admitted for acute metabolic encephalopathy secondary to COVID-19. As per discussion with the patient's daughter he is a DNR but may intubate in respiratory arrest or failure. upon arrival to the floor the patient is noted to be slightly tachypneic with diminished breath sounds at the bases. He is currently 94% on room air. An VBGthat was performed in the emergency room shows mild hypercapnia at 7.33/40 consistent with a mild uncompensated hypercapnic respiratory failure. He is high risk for decompensation. His daughter was informed of the admission andhe is currently a DNR but may intubate in respiratory failure or respiratory arrest. Chest x-ray is consistent with a left lower lobe infiltrate. He is started on ceftriaxone and azithromycin as well as duo nebs around the clock. acute metabolic encephalopathy secondary to COVID-19 pneumonia - somewhat withdrawn. Ordered for regular meals we will re-evaluate mental status in a.m.. Baseline according to patient's daughter is he ambulates witha walker but can not perform complex tasks. He recognizes his family but at times is less aware. COVID-19 pneumonia With superimposed left lower lobe bacterial pneumonia - Repeat chest x-ray in a.m.. We will monitor clinically. DuoNebs around the clock. Currently does not qualify for steroids as he is not requiring oxygen. No remdesivir indicated at this time. Patient states that he did receive his COVID vaccinations however he is unreliable in terms of history. history of hypertension - Continue hydralazine as per patient's home dose. dementia without behavioral disturbance - Stable monitor clinically. prediabetes A1c 6.2% April of 2025 - stable monitor blood sugars on daily labs. CKD stage IIIB - Creatinine 1.30, at baseline. We will monitor. DVT prophylaxis: Lovenox. Disposition: We will assure patient is tolerating meals and attempt to ambulate prior to discharge. Monitor oxygen requirement closely. Per ethics patient is may intubate but do not resuscitate in cardiac arrest. New Orders: New Orders-Lab 07/20/25 04:00 CBC w/Auto Differential [HEM] Routine Comprehensive Metabolic Panel [CHM] Routine Magnesium [CHM] Routine Phosphorus [CHM] Routine TSH, 3rd Generation [CHM] Routine New Orders-Nursing Care 07/19/25 14:41 Accucheck-Nurse Collect [RC] PRN Ambulate With Assistance [RC] PRN 07/19/25 14:43 Vital Signs [RC] EVENQ4 07/19/25 Dinner regular diet [DIET] New Order-Therapy 07/19/25 14:48 Respiratory Aerosol Treatment [RESP] ONE Medications 07/19/25 14:41 Acetaminophen [Tylenol 325 mg Tablet] 650 mg PO Q6H PRN Ondansetron HCl/Pf [Zofran 4 mg/2 ml Injection] 4 mg IVP Q4H PRN 07/19/25 14:48 Ipratropium/Albuterol Sulfate [Duoneb Nebulizer Solution] 3 ml IH RTQ4 PRN 07/19/25 16:00 Enoxaparin Sodium [Lovenox 40 mg/0.4 ml Injection] 40 mg SQ Q24H Pantoprazole Sodium [Protonix 40 mg Injection] 40 mg IVP Q24H 07/19/25 18:00 Donepezil HCl [Aricept 5 mg Tablet] 5 mg PO QPM Tamsulosin HCl [Flomax 0.4 mg Capsule] 0.4 mg PO QPM 07/19/25 20:00 Acetaminophen [Tylenol Es 500 mg Tablet] 500 mg PO BID Divalproex Sodium [Depakote] 125 mg PO BID 07/19/25 22:00 Atorvastatin Calcium [Lipitor 10 mg Tablets] 20 mg PO QHS Hydralazine HCl [Apresoline 25 mg Tablet] 12.5 mg PO TID 07/20/25 09:00 Aspirin [Aspirin 81 mg Chew Tablet] 81 mg PO DAILY Cholecalciferol (Vitamin D3) [Vitamin D3 1000 Unit Tablet] 2,000 unit PO DAILY Cyanocobalamin (Vitamin B-12) [Vitamin B-12 500 Mcg Tablet] 500 mcg PO DAILY Fenofibrate Nanocrystallized [Tricor 145 mg Tablet] 145 mg PO DAILY Finasteride [Proscar 5 mg Tablet] 5 mg PO DAILY Visit Coding - VISIT CODING Date of Service: 07/19/25 Billing Provider:: RL MARTINES Common Visit Codes: [id number] INP/OBS CARE (HIGH) Electronically Generated By:RL MARTINES MD Generated Date/Time: 07/19/25 1505 Electronically Signed By: <Electronically signed by RL MARTINES MD> 07/20/25 0851 Co Signed Electronically By: Co Signed Date/Time: CC: JAEL ASHLEY [facility] Work Phone: [phone] Discharge summary Author BRYANNA GAFFNEY [facility] Note Date/Time July 20, 2025 8: 14am [facility] [address] [place] [address] HEALTH INFORMATION MANAGEMENT EMERGENCY DEPARTMENT : [phone] Signed Patient: WILEY MEEK Acct:[id number] MRUN: [id number] : 1940 Sex: M Loc: ICU AD M Date: 07/19/25 Room/Bed: 357-A DISC Date: History of Present Illness - General Chief Complaint: Altered Mental Status Symptom onset: TODAY HPI: TO ED [facility]IA [facility] FROM [facility]. PT WAS A&OX4 LAST NIGHT. WOKE UP CONFUSED, A&OX2. FELL THIS MORNING, NO BLOOD THINNERS, DENIES HITTING HEAD. EMS STATES STRONG FOUL SMELLING URINE. Time Seen by Provider: 07/19/25 10:34 Source: Patient, RN/MD Mode of Transport: [facility] - History of Present Illness Initial Comments: patient is an 85-year-old male history of dementia, diabetes, metabolic encephalopathy, jail resident brought into emergency department for evaluation of worsening confusion over his baseline dementia and ground level fall earlier this morning. Patient was apparently found in his bathroom this morning and seemed to be confused . He was subsequently brought into emergency department for evaluation. Last known well was last night. Patient apparently has had similar episodes in the past. Reportedly not on any blood thinners. Patient is a poor historian. Most of the history was obtained from nursing staff. MD Complaint: Complains of: altered mental status - Related Data Home Medications Medication Instructions Recorded Confirmed Fenofibrate Nanocrystallized 145 mg PO DAILY 12/08/17 07/19/25 [Fenofibrate] Finasteride 5 mg PO DAILY 12/08/17 07/19/25 Aspirin [Aspirin 81 mg Chew Tablet] 81 mg PO DAILY 10/13/20 07/19/25 Donepezil HCl [Aricept 5 mg Tablet] 5 mg PO QPM 10/13/20 07/19/25 Tamsulosin HCl [Flomax 0.4 mg 0.4 mg PO QPM 10/13/20 07/19/25 Capsule] Divalproex Sodium [Depakote] 125 mg PO BID 08/11/21 07/19/25 Acetaminophen [Acetaminophen Extra 500 mg PO BID 06/01/23 07/19/25 Strength] Cimetidine 400 mg PO BID 06/01/23 07/19/25 Dexlansoprazole [Dexilant] 60 mg PO DAILY 06/01/23 07/19/25 Cholecalciferol (Vitamin D3) 2,000 unit PO DAILY 10/22/24 07/19/25 [Vitamin D3 1000 Unit Tablet] Cyanocobalamin (Vitamin B-12) 500 mcg PO DAILY 10/22/24 07/19/25 [Vitamin B-12 500 Mcg Tablet] Lactobacillus Acidophilus 100 mg PO DAILY 10/22/24 07/19/25 [Acidophilus] Pravastatin Sodium 80 mg PO QHS 10/23/24 07/19/25 Cholecalciferol (Vitamin D3) 2,000 unit PO DAILY 07/19/25 07/19/25 [Vitamin D3 1000 Unit Tablet] Cyanocobalamin (Vitamin B-12) 5,000 mcg PO DAILY 07/19/25 07/19/25 [Vitamin B12] Hydralazine HCl 12.5 mg PO TID 07/19/25 07/19/25 Allergies Allergy/AdvReac Type Severity Reaction Status Date / Time morphine Allergy Verified 10/22/24 18:11 Sulfa (Sulfonamide Allergy Verified 10/22/24 18:11 Antibiotics) Review of System - Constitutional Constitutional: Present: Well developed, Well nourished, Non-toxic - Respiratory Respiratory: Present: no symptoms reported - CV Cardiology: Present: no symptoms reported - GI Gastrointestinal/Abdominal: Present: no symptoms reported - All Others/Exceptions Unable To Obtain Complete ROS: Dementia ED PMH/Social HX/Family HX - Respiratory Hx Respiratory Disorders: Yes (reviewed ) PMH--Respiratory: Asthma, Bronchitis - Cardiovascular Hx Cardiac Disorders: Yes PMH--Cardiovascular: HTN, Hypercholesterolemia - Neurological Hx Neurological Disorder: Yes PMH--Neurological: Dementia, Memory Loss - Endocrine Hx Endocrine Disorders: Yes PMH--Endocrine History: Diabetes Type 2 - Gastrointestinal Hx Gastrointestinal Disorders: Yes PMH--Gastrointestinal: GERD, Hernia Other GI PMH: heart burn Past Surgical Hx--GI: Appendectomy - Genitourinary Hx Genitourinary Disorders: Yes PMH--Genitourinary: UTI - Musculoskeletal Hx Musculoskeletal Disorders: No PMH--Musculoskeletal: Arthritis - Reproductive Hx Reproductive Disorders: No - Psychological Hx Psychosocial Problems: Yes PMH--Psychological & Treatments: Depression - HEENT Hx Ear, Nose Throat Disorders: Yes PMH--Ears Nose and Throat: Cataracts, Farsighted Past Surgical Hx-ENT: Cataract Removal-Right, Cataract Removal-Left - Cancer Hx Cancer: No - Other Other PMH: Chicken Pox, Measles, Mumps - Social History Highest Educational Level: High School Able to Read: Yes Able to Write: Yes Smoking Status: Never Smoked Hx Chewing Tobacco Use: No Alcohol Use: Never Any recreational drug use reported?: No Hx Substance Use Treatment: No Feels Threatened In Home Environment: No Feels Threatened In a Relationship: No - Family PMH Father Living Status: Cardiac: Cardiac Disorder(s), Myocardial Infarction Mother Living Status: Cancer History: Breast Cancer - Sweet/Gender ID What is your current Gender Identity? Choose all that Apply: Male Define your Sexual Orientation?: Straight/Heterosexual - Crane-Suicide Severity Rating Scale 1) Wish to be :: No 2) Suicidal Thoughts:: No 6) Suicidal Behavior Question (A): LIFETIME: No 6) Suicidal Behavior Question (B): PAST 3 MONTHS: No General Exam - General Limitations: Complains of: altered mental status Constitutional: Present: Well developed, Well nourished, Non-toxic - Head Head exam: Present: atraumatic, normocephalic - Eye Eye exam: Present: EOMI. Absent: scleral icterus, conjunctival injection Pupils: Present: PERRL - ENT ENT exam: Present: mucous membranes dry - Neck Neck exam: Present: full ROM, Supple. Absent: tenderness, meningismus, anteriorneck swelling - Respiratory Respiratory exam: Absent: respiratory distress, stridor - Cardiovascular Cardiovascular Exam: Present: regular rate - GI/Abdominal GI/Abdominal exam: Present: soft, non tender - Extremities Exam Extremities exam: Present: normal inspection, neurovascularly intact, full ROM - Back Exam Back exam: Present: normal inspection, full ROM. Absent: paraspinal tenderness,vertebral tenderness, cervical tenderness, thoracic tenderness, lumbar tenderness - Neurological Exam Neurological exam: Present: alert, other ( patient is awake, alert. Sometimes he answers questions appropriately and sometimes does not. Following commands.) - Skin Skin Color: Present: Normal Skin exam: Present: warm - Vital Signs Vital Signs 07/19/25 07/19/25 07/19/25 10:32 10:43 10:47 Temperature 98 F 98 F Pulse Rate 98 Pulse Rate [ 98 98 Left Pulse Ox] Respiratory 18 18 Rate Blood Pressure Blood Pressure 120/72 120/72 [Left Arm] O2 Sat by Pulse 96 96 95 Oximetry(%) 07/19/25 07/19/25 07/19/25 10:49 10:50 11:00 Temperature Pulse Rate 98 98 Pulse Rate [ Left Pulse Ox] Respiratory Rate Blood Pressure 131/72 Blood Pressure [Left Arm] O2 Sat by Pulse 94 L 94 L 94 L Oximetry(%) 07/19/25 07/19/25 07/19/25 11:10 11:20 11:38 Temperature Pulse Rate 96 89 92 Pulse Rate [ Left Pulse Ox] Respiratory Rate Blood Pressure Blood Pressure [Left Arm] O2 Sat by Pulse 96 96 97 Oximetry(%) 07/19/25 07/19/25 07/19/25 11:40 11:50 11:52 Temperature Pulse Rate 92 92 90 Pulse Rate [ Left Pulse Ox] Respiratory Rate Blood Pressure 137/87 Blood Pressure [Left Arm] O2 Sat by Pulse 96 96 97 Oximetry(%) 07/19/25 07/19/25 07/19/25 12:00 12:01 12:10 Temperature Pulse Rate 91 95 91 Pulse Rate [ Left Pulse Ox] Respiratory Rate Blood Pressure 149/94 H Blood Pressure [Left Arm] O2 Sat by Pulse 96 97 97 Oximetry(%) 07/19/25 07/19/25 07/19/25 12:30 13:00 13:30 Temperature 97.9 F Pulse Rate Pulse Rate [ Left Pulse Ox] Respiratory Rate Blood Pressure 152/92 H 139/91 H 138/92 H Blood Pressure [Left Arm] O2 Sat by Pulse Oximetry(%) ED AMS MDM - Lab Data Result diagrams: 07/20/25 04:30 07/20/25 04:30 Lab Results 07/19/25 07/19/25 07/19/25 Range/Units 10:40 11:04 11:15 WBC 8.5 (3.6-10.8) K/uL RBC 3.91 L (4.13-5.69) M/uL Hgb 12.5 (12.4-17.3) g/dL Hct 37.8 (36.7-50.6) % MCV 96.7 H (80.0-94.0) fL MCH 32.0 H (27.0-31.0) pg MCHC 33.1 (33.0-37.0) g/dL RDW 13.8 (11.5-14.5) % Plt Count 267 (148-402) K/uL MPV 9.3 (7.4-10.4) fL Neut % (Auto) 88.9 H (43.0-65.0) % Lymph % (Auto) 4.7 L (17.0-45.5) % [place] % (Auto) 5.2 L (5.5-11.7) % Eos % (Auto) 0.8 L (0.9-2.9) % Baso % (Auto) 0.2 (0.2-1.0) % Abs Immat Gran (man) 0.02 (0.00-0.10) K/uL Absolute Neuts (auto) 7.54 H (2.20-4.80) K/uL Absolute Lymphs (auto) 0.40 L (1.30-2.90) K/uL Absolute Monos (auto) 0.40 (0.30-0.80) K/uL Absolute Eos (auto) 0.10 (0.00-0.20) K/uL Absolute Basos (auto) 0.02 (0.00-0.10) K/uL Immature Gran % 0.20 (0.00-1.00) % PT (8.9-12.2) sec INR ratio Sodium 140 (132-145) mmol/L Potassium 4.5 (3.3-5.1) mmol/L Chloride 105 (94-110) mmol/L Total Carbon Dioxide 27 (21-34) mmol/L Anion Gap 12.5 (8.0-16.0) mmol/L BUN 26.4 (3.2-26.9) mg/dL Creatinine 1.50 H (0.50-1.17) mg/dL Est GFR (MDRD) Af Amer 54 A (>60) Est GFR (MDRD) Non-Af 45 A (>60) BUN/Creatinine Ratio 18 (6-20) Glucose 121 H (65-100) mg/dL POC Glucose (mg/dL) 124 (65-110) mg/dL Plasma Lactic Acid Memo (0.4-2.0) mmol/L Calcium 8.8 (8.2-10.0) mg/dL Total Bilirubin 0.68 (0.00-0.99) mg/dL AST 55 H (3-39) U/L ALT 39 (13-66) U/L Alkaline Phosphatase 52 L (54-112) U/L Troponin I High Sens 7 (0-76) ng/L Troponin I Hi Sens Del % Troponin I Hi Sens Abs Chng ng/L Total Protein 7.0 (6.1-8.2) g/dL Albumin 3.3 L (3.4-5.0) g/dL Globulin 3.7 (1.5-4.5) g/dL Albumin/Globulin Ratio 0.9 L (1.1-2.5) Urine Color (Yellow) Urine Appearance (Clear) Urine pH Ur Specific Lar[place] (1.015-1.025) Urine Protein (Negative) Urine Ketones (Negative) Urine Blood (Negative) Urine Nitrite (Negative) Urine Bilirubin (Negative) Urine Urobilinogen (Normal-1.0) mg/dL Ur Leukocyte Esterase (Negative) Urine RBC (0 - 2) /hpf Urine WBC (0 - 6) /hpf Urine Glucose (Negative) Influenza Type A Ag ((Negative)) Influenza Type B Ag ((Negative)) SARS-CoV-2 Ag (Rapid) (Negative) 07/19/25 07/19/25 07/19/25 Range/Units 11:15 11:21 12:30 WBC (3.6-10.8) K/uL RBC (4.13-5.69) M/uL Hgb (12.4-17.3) g/dL Hct (36.7-50.6) % MCV (80.0-94.0) fL MCH (27.0-31.0) pg MCHC (33.0-37.0) g/dL RDW (11.5-14.5) % Plt Count (148-402) K/uL MPV (7.4-10.4) fL Neut % (Auto) (43.0-65.0) % Lymph % (Auto) (17.0-45.5) % [place] % (Auto) (5.5-11.7) % Eos % (Auto) (0.9-2.9) % Baso % (Auto) (0.2-1.0) % Abs Immat Gran (man) (0.00-0.10) K/uL Absolute Neuts (auto) (2.20-4.80) K/uL Absolute Lymphs (auto) (1.30-2.90) K/uL Absolute Monos (auto) (0.30-0.80) K/uL Absolute Eos (auto) (0.00-0.20) K/uL Absolute Basos (auto) (0.00-0.10) K/uL Immature Gran % (0.00-1.00) % PT 10.3 (8.9-12.2) sec INR 1.0 ratio Sodium (132-145) mmol/L Potassium (3.3-5.1) mmol/L Chloride (94-110) mmol/L Total Carbon Dioxide (21-34) mmol/L Anion Gap (8.0-16.0) mmol/L BUN (3.2-26.9) mg/dL Creatinine (0.50-1.17) mg/dL Est GFR (MDRD) Af Amer (>60) Est GFR (MDRD) Non-Af (>60) BUN/Creatinine Ratio (6-20) Glucose (65-100) mg/dL POC Glucose (mg/dL) (65-110) mg/dL Plasma Lactic Acid Memo (0.4-2.0) mmol/L Calcium (8.2-10.0) mg/dL Total Bilirubin (0.00-0.99) mg/dL AST (3-39) U/L ALT (13-66) U/L Alkaline Phosphatase (54-112) U/L Troponin I High Sens 8 (0-76) ng/L Troponin I Hi Sens Del 13 % Troponin I Hi Sens Abs Chng 1 ng/L Total Protein (6.1-8.2) g/dL Albumin (3.4-5.0) g/dL Globulin (1.5-4.5) g/dL Albumin/Globulin Ratio (1.1-2.5) Urine Color yellow (Yellow) Urine Appearance Clear (Clear) Urine pH 6.5 Ur Specific [place] 1.015 (1.015-1.025) Urine Protein 15 A (Negative) Urine Ketones Negative (Negative) Urine Blood 10 A (Negative) Urine Nitrite Negative (Negative) Urine Bilirubin Negative (Negative) Urine Urobilinogen Normal (Normal-1.0) mg/dL Ur Leukocyte Esterase Negative (Negative) Urine RBC 0-2 (0 - 2) /hpf Urine WBC None seen (0 - 6) /hpf Urine Glucose Normal (Negative) Influenza Type A Ag ((Negative)) Influenza Type B Ag ((Negative)) SARS-CoV-2 Ag (Rapid) (Negative) 07/19/25 07/19/25 07/19/25 Range/Units 12:31 12:35 12:35 WBC (3.6-10.8) K/uL RBC (4.13-5.69) M/uL Hgb (12.4-17.3) g/dL Hct (36.7-50.6) % MCV (80.0-94.0) fL MCH (27.0-31.0) pg MCHC (33.0-37.0) g/dL RDW (11.5-14.5) % Plt Count (148-402) K/uL MPV (7.4-10.4) fL Neut % (Auto) (43.0-65.0) % Lymph % (Auto) (17.0-45.5) % [place] % (Auto) (5.5-11.7) % Eos % (Auto) (0.9-2.9) % Baso % (Auto) (0.2-1.0) % Abs Immat Gran (man) (0.00-0.10) K/uL Absolute Neuts (auto) (2.20-4.80) K/uL Absolute Lymphs (auto) (1.30-2.90) K/uL Absolute Monos (auto) (0.30-0.80) K/uL Absolute Eos (auto) (0.00-0.20) K/uL Absolute Basos (auto) (0.00-0.10) K/uL Immature Gran % (0.00-1.00) % PT (8.9-12.2) sec INR ratio Sodium (132-145) mmol/L Potassium (3.3-5.1) mmol/L Chloride (94-110) mmol/L Total Carbon Dioxide (21-34) mmol/L Anion Gap (8.0-16.0) mmol/L BUN (3.2-26.9) mg/dL Creatinine (0.50-1.17) mg/dL Est GFR (MDRD) Af Amer (>60) Est GFR (MDRD) Non-Af (>60) BUN/Creatinine Ratio (6-20) Glucose (65-100) mg/dL POC Glucose (mg/dL) (65-110) mg/dL Plasma Lactic Acid Memo 1.4 (0.4-2.0) mmol/L Calcium (8.2-10.0) mg/dL Total Bilirubin (0.00-0.99) mg/dL AST (3-39) U/L ALT (13-66) U/L Alkaline Phosphatase (54-112) U/L Troponin I High Sens (0-76) ng/L Troponin I Hi Sens Del % Troponin I Hi Sens Abs Chng ng/L Total Protein (6.1-8.2) g/dL Albumin (3.4-5.0) g/dL Globulin (1.5-4.5) g/dL Albumin/Globulin Ratio (1.1-2.5) Urine Color (Yellow) Urine Appearance (Clear) Urine pH Ur Specific [place] (1.015-1.025) Urine Protein (Negative) Urine Ketones (Negative) Urine Blood (Negative) Urine Nitrite (Negative) Urine Bilirubin (Negative) Urine Urobilinogen (Normal-1.0) mg/dL Ur Leukocyte Esterase (Negative) Urine RBC (0 - 2) /hpf Urine WBC (0 - 6) /hpf Urine Glucose (Negative) Influenza Type A Ag Negative ((Negative)) Influenza Type B Ag Negative ((Negative)) SARS-CoV-2 Ag (Rapid) Positive A (Negative) Orders: Medications Acetaminophen (Acetaminophen 325 Mg Tablet) 650 mg PO Q6H PRN PRN Reason: MILD PAIN(1-3) OR FEVER Stop: 08/19/25 14:42 Last Admin: 10/05/25 03:51 Dose: 650 mg Documented by: [email or web address] Acetaminophen (Acetaminophen 500 Mg Tablet) 500 mg PO BID OSVALDO Stop: 08/19/25 20:01 Last Admin: 07/19/25 19:38 Dose: 500 mg Documented by: [email or web address] Albuterol/Ipratropium (Ipratropium/Albuterol Sulf Neb Solution) 3 ml IH RTQ4 OSVALDO Stop: 08/19/25 16:01 Last Admin: 07/20/25 04:20 Dose: 3 ml Documented by: [email or web address] Atorvastatin Calcium (Atorvastatin Calcium 10 Mg Tablet) 20 mg PO QHS OSVALDO Stop: 08/19/25 22:01 Last Admin: 07/19/25 22:32 Dose: 20 mg Documented by: [email or web address] Divalproex Sodium (Divalproex Sodium 125 Mg Sprinkle Capsule) 125 mg PO BID [facility] Stop: 08/19/25 20:01 Last Admin: 07/19/25 19:38 Dose: 125 mg Documented by: [email or web address] Donepezil HCl (Donepezil Hcl 5 Mg Tablet) 5 mg PO QPM OSVALDO Stop: 08/19/25 18:01 Last Admin: 07/19/25 18:35 Dose: 5 mg Documented by: [email or web address] Enoxaparin Sodium (Enoxaparin Sodium 40 Mg/0.4 Ml Injection) 40 mg SQ Q24H [facility];Protocol Stop: 08/19/25 16:01 Last Admin: 07/19/25 16:45 Dose: 40 mg Documented by: [email or web address] Cosigned by: [email or web address] Hydralazine HCl (Hydralazine Hcl 25 Mg Tablet) 12.5 mg PO TID OSVALDO Stop: 08/19/25 22:01 Last Admin: 07/20/25 06:08 Dose: 12.5 mg Documented by: [email or web address] Azithromycin 500 mg/ Sodium (Chloride) 250 mls @ 250 mls/hr IVPB Q24H [facility]VALDO Stop: 07/26/25 16:01 Last Infusion: 07/19/25 18:55 Dose: 0 mls/hr, 0 mls/hr Documented by: [email or web address] Nystatin (Nystatin 500,000 Unit/5 Ml Suspension) 500,000 unit PO QID [facility] Stop: 07/26/25 18:01 Last Admin: 07/20/25 06:09 Dose: 500,000 unit Documented by: [email or web address] Pantoprazole Sodium (Pantoprazole Sodium 40 Mg Injection) 40 mg IVP Q24H [facility]VALDO Stop: 08/19/25 16:01 Last Admin: 07/19/25 16:45 Dose: 40 mg Documented by: [email or web address] Tamsulosin HCl (Tamsulosin Hcl 0.4 Mg Capsule) 0.4 mg PO QPM OSVALDO Stop: 08/19/25 18:01 Last Admin: 07/19/25 18:35 Dose: 0.4 mg Documented by: [email or web address] Discontinued Medications Sodium Chloride (Sodium Chloride 0.9 % 1000 Ml) 1,000 mls @ 999 mls/hr IV .Q1H1M STA Stop: 07/19/25 11:46 Last Infusion: 07/19/25 12:18 Dose: 0 mls/hr Documented by: [email or web address] Ceftriaxone Sodium 1 gm/ (Sodium Chloride) 50 mls @ 100 mls/hr IVPB STAT STA Stop: 07/19/25 12:32 Last Infusion: 07/19/25 14:00 Dose: 0 mls/hr, 0 mls/hr Documented by: [email or web address] Labs 07/19/25 20:04 High Sensitivity Troponin I* [CHM] Routine - Radiology Data IMPRESSIONS Chest X-Ray 07/19/25 10:45 IMPRESSION: 1. Left lung base airspace disease 2. The right lung is clear. Brain CT 07/19/25 10:46 IMPRESSION: 1. No evidence of acute intracranial process. 2. Prominence of the sulci and/or CSF spaces suggests a degree of cerebral atrophy. 3. 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 Cervical Spine CT 07/19/25 10:46 IMPRESSION: 1. Prominent posterior central disc protrusion C6-C7 resulting in central canal and mild lateral recess narrowing If the patient has any related symptoms, an MRI examination of the cervical spine could be obtained. 2. No evidence of acute fracture with degenerative and/or chronic changes as described. Electrocardiogram 07/19/25 10:46 [facility] ED Test Date: 2025-07-19 Test Time: 10:55:58 [facility]: ED Room: Gender: M Mottler Operator: JOSE : 1940 Requested By: BRYANNA GAFFNEY Order Number: [id number] Reading MD: Bryanna Gaffney Measurements Intervals [place] Rate: 96 P: 17 NC: 192 QRS: 23 QRSD: 131 T: -14 QT: 351 QTc: 444 Interpretive Statements Normal sinus rhythm, heart rate of 96. Normal NC interval. Right bundle branch block. Electronically Signed On 07-19-2025 11:34:18 EDT by Bryanna Gaffney - Medical Decision Making ED Course: [ patient is an 85-year-old male history of dementia, diabetes, metabolic encephalopathy, jail resident brought into emergency department for evaluation of worsening confusion over his baseline dementia and ground level fall earlier this morning. Patient was apparently found in his bathroom this morning and seemed to be confused . He was subsequently brought into emergency department for evaluation. Last known well was last night. Patient apparently has had similar episodes in the past. Reportedly not on any blood thinners. Patient is a poor historian. Most of the history was obtained from nursing staff.] Prior records reviewed: The patient has received a medical screening examination: within reasonable clinical confidence has been stabilized in the ED. Reviewed pertinent findings from resulted labs: [Yes ] Imaging : Interpretation by radiology . [Yes ] [ EKG interpreted by myself and discussed with patient. Full EKG read found on [employer]Server ] Presenting clinical condition necessitates admission or observation consideration: [ Yes ] Independent Hx provided by: [ Patient/RN ] Med Rx considered but ultimately not given: [ none ] Dx tests considered but ultimately not ordered: [ none ] Social determinant that may affects healthcare: [ none ] Pt?s case/impression summarized and discussed with: [ Patient/Hospitalist ] Likely Dx given clinical picture: [ metabolic encephalopathy, ground level fall, generalized weakness, pneumonia, COVID-19 infection] Although not an exhaustive list of Differential Diagnosis (though considered), patient?s HPI, PE, and other findings are not suggestive of: [ ] 6 IMPRESSION: 1. No evidence of acute intracranial process. 2. Prominence of the sulci and/or CSF spaces suggests a degree of cerebral atrophy. 3. 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 Cervical Spine CT 07/19/25 10:46 IMPRESSION: 1. Prominent posterior central disc protrusion C6-C7 resulting in central canal and mild lateral recess narrowing If the patient has any related symptoms, an MRI examination of the cervical spine could be obtained. 2. No evidence of acute fracture with degenerative and/or chronic changes as described. Chest X-Ray 07/19/25 10:45 IMPRESSION: 1. Left lung base airspace disease 2. The right lung is clear. Above imaging results reviewed. He tested positive for COVID-19. He does not seem to be hypoxic. Blood cultures are obtained patient was administered IV antibiotics for probable lung airspace disease. He was also administered IV fluids for dehydration. patient would benefit from admission to hospital for further evaluation, IV hydration, IV antibiotics and reassessment. Case discussed with Dr. Martines and she agreed to admit the patient. [ Patient at the time of disposition was stable however in serious and/or critical condition from their presenting complaint thus requiring admission. The patient and/or family was given the opportunity to ask questions prior to admission, understood my verbal discussion of the plans for treatment, expected course, and the need for timely follow up as directed. ] Condition: Stable Disposition: [ admit ] This document has been created using voice recognition software and may contain grammatical and typographical errors. ED Discharge Summary - Discharge Data Clinical Impression: Ground-level fall, Pneumonia, Dehydration, Metabolic encephalopathy, Generalized weakness, COVID-19 virus infection Condition: Fair Disposition: ADMITTED INPATIENT Home Medications: Ambulatory Orders Medication Instructions Recorded Fenofibrate Nanocrystallized 145 mg PO DAILY 12/08/17 [Fenofibrate] Finasteride 5 mg PO DAILY 12/08/17 Aspirin [Aspirin 81 mg Chew Tablet] 81 mg PO DAILY 10/13/20 Donepezil HCl [Aricept 5 mg Tablet] 5 mg PO QPM 10/13/20 Tamsulosin HCl [Flomax 0.4 mg 0.4 mg PO QPM 10/13/20 Capsule] Divalproex Sodium [Depakote] 125 mg PO BID 08/11/21 Acetaminophen [Acetaminophen Extra 500 mg PO BID 06/01/23 Strength] Cimetidine 400 mg PO BID 06/01/23 Dexlansoprazole [Dexilant] 60 mg PO DAILY 06/01/23 Cholecalciferol (Vitamin D3) 2,000 unit PO DAILY 10/22/24 [Vitamin D3 1000 Unit Tablet] Cyanocobalamin (Vitamin B-12) 500 mcg PO DAILY 10/22/24 [Vitamin B-12 500 Mcg Tablet] Lactobacillus Acidophilus 100 mg PO DAILY 10/22/24 [Acidophilus] Pravastatin Sodium 80 mg PO QHS 10/23/24 Cholecalciferol (Vitamin D3) 2,000 unit PO DAILY 07/19/25 [Vitamin D3 1000 Unit Tablet] Cyanocobalamin (Vitamin B-12) 5,000 mcg PO DAILY 07/19/25 [Vitamin B12] Hydralazine HCl 12.5 mg PO TID 07/19/25 Time Seen by Provider: 07/19/25 10:34 Electronically Generated By:BRYANNA GAFFNEY MD Generated Date/Time: 07/19/25 1052 Electronically Signed By: <Electronically signed by BRYANNA GAFFNEY MD> 07/20/25 0814 Co Signed Electronically By: Co Signed Date/Time: CC: JAEL ASHLEY DO [facility] Work Phone: [phone] [place] [address] HEALTH INFORMATION MANAGEMENT HISTORY AND PHYSICAL : [id number] Signed Patient: WILEY MEEK Acct:[id number] MRUN: [id number] : 1940 Sex: M Loc: ICU ADM Date: Room/Bed: 357-A DISC Date: History of Present Illness Date Of Admission: 07/19/25 Chief Complaint: altered mental status at assisted living Onset of Chief Complaint: 07/19/25 History of Present Illness: Visit History WILEY MEEK is a 85 year old M patient of JAEL ASHLEY DO. Patient was admitted from to room 357, bed A on 07/19/25 12:38. Pt was evaluated for complaints of , then admitted to [facility] for METABOLIC ENCEPHALOPATHY GENERALIZED WEAKNESS. WILEY was admitted as a ADM to [facility] for further evaluation and treatment. Pt was seen and evaluated on 07/19/25 [id number], by this provider, RL MARTINES MD. the patient's history may be unreliable as he has underlying dementia. History is obtained from the patient and his daughter Tyree was called. According to the patient he took a fall this morning but could not tell me why he was admitted today. He denies any shortness of breath or lung pathology. He denies any history of blood clots. He denies any cough. His daughter Tyree states that she was notified that the patient was going to be sent into the hospital due to altered mental status. his daughter states that he does not use any oxygen at home. He at baseline recognizes family and at times is more lucid than others at times he is in a daze. She states that he is ambulating currently with a walker. 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 We discussed his code status which is do not resuscitate if his heart were to stop however if he has increased work of breathing or respiratory failure we may intubate for reversible conditions. This was discussed with Tyree his daughter at [phone]. Patient's review of system may be an accurate as he mostly answers 0h yea to all. Allergies/Adverse Reactions: morphine Allergy (Verified 10/22/24 18:11) Sulfa (Sulfonamide Antibiotics) Allergy (Verified 10/22/24 18:11) Home Medications: Patient History Fenofibrate Nanocrystallized [Fenofibrate] 145 mg PO DAILY 12/08/17 [History Confirmed 07/19/25] Finasteride 5 mg PO DAILY 12/08/17 [History Confirmed 07/19/25] Aspirin [Aspirin 81 mg Chew Tablet] 81 mg PO DAILY 10/13/20 [History Confirmed 07/19/25] Donepezil HCl [Aricept 5 mg Tablet] 5 mg PO QPM 10/13/20 [History Confirmed 07/19/25] Tamsulosin HCl [Flomax 0.4 mg Capsule] 0.4 mg PO QPM 10/13/20 [History Confirmed 07/19/25] Divalproex Sodium [Depakote] 125 mg PO BID 08/11/21 [History Confirmed 07/19/25] Acetaminophen [Acetaminophen Extra Strength] 500 mg PO BID 06/01/23 [History Confirmed 07/19/25] Cimetidine 400 mg PO BID 06/01/23 [History Confirmed 07/19/25] Dexlansoprazole [Dexilant] 60 mg PO DAILY 06/01/23 [History Confirmed 07/19/25] Cholecalciferol (Vitamin D3) [Vitamin D3 1000 Unit Tablet] 2,000 unit PO DAILY 10/22/24 [History Confirmed 07/19/25] Cyanocobalamin (Vitamin B-12) [Vitamin B-12 500 Mcg Tablet] 500 mcg PO DAILY 10/22/24 [History Confirmed 07/19/25] Lactobacillus Acidophilus [Acidophilus] 100 mg PO DAILY 10/22/24 [History Confirmed 07/19/25] Pravastatin Sodium 80 mg PO QHS 10/23/24 [History Confirmed 07/19/25] Cholecalciferol (Vitamin D3) [Vitamin D3 1000 Unit Tablet] 2,000 unit PO DAILY 07/19/25 [History Confirmed 07/19/25] Cyanocobalamin (Vitamin B-12) [Vitamin B12] 5,000 mcg PO DAILY 07/19/25 [History Confirmed 07/19/25] Hydralazine HCl 12.5 mg PO TID 07/19/25 [History Confirmed 07/19/25] Past Social History Highest Educational Level: High School Able to Read: Yes Able to Write: Yes Smoking Status: Former Smoker Alcohol Use: Never Drugs: None - Sweet/Gender ID What is your current Gender Identity? Choose all that Apply: Male Define your Sexual Orientation?: Straight/Heterosexual - Crane-Suicide Severity Rating Scale 1) Wish to be :: No 2) Suicidal Thoughts:: No 6) Suicidal Behavior Question (A): LIFETIME: No 6) Suicidal Behavior Question (B): PAST 3 MONTHS: No Past Medical History Hx Ear/Nose/Throat Disorders: Yes PMH--Ear/Nose/Throat: Confirms: Cataracts, Farsighted Past Surgical Hx-ENT: Confirms: Cataract Removal-Right, Cataract Removal-Left Hx Neurological Disorder: Yes PMH-Neurological: Confirms: Dementia, Memory Loss Hx Psychosocial Problems: Yes PMH--Psychological Treatments: Confirms: Depression Hx Cardiac Disorders: Yes PMH--Cardiovascular: Confirms: HTN, Hypercholesterolemia Hx Respiratory Disorders: Yes (reviewed ) PMH--Respiratory: Confirms: Asthma, Bronchitis Hx Endoc (more content not included)...[facility] 07-20-2025 History and physical noteCO[address] [address] HEALTH INFORMATION MANAGEMENT HISTORY AND PHYSICAL : [id number] Signed Patient: WILEY MEEK Acct:[id number] MRUN: [id number] : 1940 Sex: M Loc: ICU AD M Date: 07/19/25 Room/Bed: 357-A DISC Date: History of Present Illness Date Of Admission: 07/19/25 Chief Complaint: altered mental status at assisted living Onset of Chief Complaint: 07/19/25 History of Present Illness: Visit History WILEY MEEK is a 85 year old M patient of JAEL ASHLEY DO. Patient was admitted from to room 357, bed A on 07/19/25 12:38. Pt was evaluated for complaints of , then admitted to [facility] for METABOLIC ENCEPHALOPATHY GENERALIZED WEAKNESS. WILEY was admitted asa ADM to [facility] for further evaluation and treatment. Pt was seen and evaluated on 07/19/25 [id number], by this provider, RL MARTINES MD. the patient's history may be unreliable as he has underlying dementia. Historyis obtained from the patient and his daughter Tyree was called. According to the patient he took a fall this morning butcould not tell me why he was admitted today. He denies any shortness of breath or lung pathology. He denies any history of blood clots. He denies any cough. His daughter Tyree states that she was notified that the patient was going to be sent into the hospital due to altered mental status. his daughter states that he does not use any oxygen at home. He at baseline recognizes family and at times is more lucid than others at times he is in a daze. She states that heis ambulating currently with a walker. She states that in terms of his mental status heis unable to work a radio. We discussed his code status which is do not resuscitate if his heart were to stop however if he has increased work of breathing or respiratory failure we mayintubate for reversible conditions. This was discussed with Tyree his daughterat [phone]. Patient's review of system may be an accurate as he mostly answers 0h yea to all. Allergies/Adverse Reactions: morphine Allergy (Verified 10/22/24 18:11) Sulfa (Sulfonamide Antibiotics) Allergy (Verified 10/22/24 18:11) Home Medications: Patient History Fenofibrate Nanocrystallized [Fenofibrate] 145 mg PO DAILY 12/08/17 [History Confirmed 07/19/25] Finasteride 5 mg PO DAILY 12/08/17 [History Confirmed 07/19/25] Aspirin [Aspirin 81 mg Chew Tablet] 81 mg PO DAILY 10/13/20 [History Confirmed 07/19/25] Donepezil HCl [Aricept 5 mg Tablet] 5 mg PO QPM 10/13/20 [History Confirmed 07/19/25] Tamsulosin HCl [Flomax 0.4 mg Capsule] 0.4 mg PO QPM 10/13/20 [History Confirmed 07/19/25] Divalproex Sodium [Depakote] 125 mg PO BID 08/11/21 [History Confirmed 07/19/25] Acetaminophen [Acetaminophen Extra Strength] 500 mg PO BID 06/01/23 [History Confirmed 07/19/25] Cimetidine 400 mg PO BID 06/01/23 [History Confirmed 07/19/25] Dexlansoprazole [Dexilant] 60 mg PO DAILY 06/01/23 [History Confirmed 07/19/25] Cholecalciferol (Vitamin D3) [Vitamin D3 1000 Unit Tablet] 2,000 unit PO DAILY 10/22/24 [History Confirmed 07/19/25] Cyanocobalamin (Vitamin B-12) [Vitamin B-12 500 Mcg Tablet] 500 mcg PO DAILY 10/22/24 [History Confirmed 07/19/25] Lactobacillus Acidophilus [Acidophilus] 100 mg PO DAILY 10/22/24 [History Confirmed 07/19/25] Pravastatin Sodium 80 mg PO QHS 10/23/24 [History Confirmed 07/19/25] Cholecalciferol (Vitamin D3) [Vitamin D3 1000 Unit Tablet] 2,000 unit PO DAILY 07/19/25 [History Confirmed 07/19/25] Cyanocobalamin (Vitamin B-12) [Vitamin B12] 5,000 mcg PO DAILY 07/19/25 [History Confirmed 07/19/25] Hydralazine HCl 12.5 mg PO TID 07/19/25 [History Confirmed 07/19/25] Past Social History Highest Educational Level: High School Able to Read: Yes Able to Write: Yes Smoking Status: Former Smoker Alcohol Use: Never Drugs: None - Sweet/Gender ID What is your current Gender Identity? Choose all that Apply: Male Define your Sexual Orientation?: Straight/Heterosexual - Crane-Suicide Severity Rating Scale 1) Wish to be :: No 2) Suicidal Thoughts:: No 6) Suicidal Behavior Question (A): LIFETIME: No 6) Suicidal Behavior Question (B): PAST 3 MONTHS: No Past Medical History Hx Ear/Nose/Throat Disorders: Yes PMH--Ear/Nose/Throat: Confirms: Cataracts, Farsighted Past Surgical Hx-ENT: Confirms: Cataract Removal-Right, Cataract Removal-Left Hx Neurological Disorder: Yes PMH-Neurological: Confirms: Dementia, Memory Loss Hx Psychosocial Problems: Yes PMH--Psychological & Treatments: Confirms: Depression Hx Cardiac Disorders: Yes PMH--Cardiovascular: Confirms: HTN, Hypercholesterolemia Hx Respiratory Disorders: Yes (reviewed ) PMH--Respiratory: Confirms: Asthma, Bronchitis Hx Endocrine Disorders: Yes PMH--Endocrine History: Confirms: Diabetes Type 2 [id number]:: heart burn Hx Musculoskeletal Disorders: No PMH--Musculoskeletal: Confirms: Arthritis Hx Reproductive Disorders: No Hx Genitourinary Disorders: Yes PMH--Genitourinary: Confirms: UTI Hx Gastrointestinal Disorders: Yes PMH--Gastrointestinal: Confirms: GERD, Hernia Past Surgical Hx--GI: Confirms: Appendectomy Hx Cancer: No Other PMH: Confirms: Chicken Pox, Measles, Mumps Family Medical History - Family Medical History Father Living Status: Cardiac History: Cardiac Disorder(s), Myocardial Infarction Mother Living Status: Cancer History: Breast Cancer Physical Exam Sepsis focused exam performed?: No Review of Systems Completed?: Yes Vital Signs: Vital Signs (72 hours) 07/19/25 07/19/25 07/19/25 10:32 10:43 10:47 Temperature 98 F 98 F Pulse Rate 98 Pulse Rate [ 98 98 Left Pulse Ox] Respiratory 18 18 Rate Blood Pressure Blood Pressure 120/72 120/72 [Left Arm] O2 Sat by Pulse 96 96 95 Oximetry(%) 07/19/25 07/19/25 07/19/25 10:49 10:50 11:00 Temperature Pulse Rate 98 98 Pulse Rate [ Left Pulse Ox] Respiratory Rate Blood Pressure 131/72 Blood Pressure [Left Arm] O2 Sat by Pulse 94 L 94 L 94 L Oximetry(%) 07/19/25 07/19/25 07/19/25 11:10 11:20 11:38 Temperature Pulse Rate 96 89 92 Pulse Rate [ Left Pulse Ox] Respiratory Rate Blood Pressure Blood Pressure [Left Arm] O2 Sat by Pulse 96 96 97 Oximetry(%) 07/19/25 07/19/25 07/19/25 11:40 11:50 11:52 Temperature Pulse Rate 92 92 90 Pulse Rate [ Left Pulse Ox] Respiratory Rate Blood Pressure 137/87 Blood Pressure [Left Arm] O2 Sat by Pulse 96 96 97 Oximetry(%) 07/19/25 07/19/25 07/19/25 12:00 12:01 12:10 Temperature Pulse Rate 91 95 91 Pulse Rate [ Left Pulse Ox] Respiratory Rate Blood Pressure 149/94 H Blood Pressure [Left Arm] O2 Sat by Pulse 96 97 97 Oximetry(%) 07/19/25 07/19/25 07/19/25 12:30 13:00 13:30 Temperature 97.9 F Pulse Rate Pulse Rate [ Left Pulse Ox] Respiratory Rate Blood Pressure 152/92 H 139/91 H 138/92 H Blood Pressure [Left Arm] O2 Sat by Pulse Oximetry(%) 07/19/25 07/19/25 07/19/25 14:10 14:20 14:30 Temperature Pulse Rate 98 97 98 Pulse Rate [ Left Pulse Ox] Respiratory Rate Blood Pressure Blood Pressure [Left Arm] O2 Sat by Pulse 95 95 95 Oximetry(%) General: Yes: Alert, Confused, Cooperative/Pleasant, No acute distress HEENT: Yes: Atraumatic, PERRLA, EOMI. No: Mucous membr. moist/pink ( thrush) Lungs: Yes: Labored ( using accessory muscles to breathe lifting and shoulders),Diminished. No: Shortness Of Breath Scale Cardiovascular: Yes: Regular rate, Normal S2, Normal S1. No: No murmurs, Gallops, Rubs Abdomen: Yes: Bowel Sounds X4, Soft, No Tenderness, Flatus (Present), Bowel Pattern. No: Hepatospenomegaly, Masses, Nausea/Vomiting, Emesis Present, Constipation, Diarrhea Extremities: Yes: Normal pulses. No: Clubbing, Cyanosis, Edema, No tenderness/swelling, Bilateral Leg Edema, Mottling noted Skin: No: Rashes, Skin Breakdown, Significant lesions, Open Wound Present, Skin Tear Neurological: Yes: Speech Clear, Strength Normal X4 ext, Normal tone, Sensation intact, Cranial nerves 3-12 NL, Reflexes 2+, Cognitive Ability Impaire ( mildly encephalopathic closes his eyes while Nicholas asking him questions and forgets to answer.) Psych/Mental Status: Yes: Depressed/Withdrawn. No: Mental status NL, Hallucinations Genitourinary/Rectal: Yes: Voiding (Sufficiently), Normal Rectal Tone. No: Genital Discharge, Bladder Distention, Joe Catheter, Rectal Masses Breast Exam: No: Lump, Skin Changes, Ulcers, Nipple Drainage, Pain Impressions - Problems (1) Acute metabolic encephalopathy Status: Acute Priority: High Onset Date: ~07/19/25 Present on admission?: Yes Current Visit: No (2) Pneumonia due to COVID-19 virus Status: Acute Priority: High Onset Date: ~07/19/25 Present on admission?: Yes Current Visit: No (3) Chronic renal failure (CRF), stage 3b Status: Chronic Priority: Medium Present on admission?: Yes Current Visit: No (4) Prediabetes Additional Text: A1c 6.2% Status: Chronic Priority: Medium Present on admission?: Yes Current Visit: No (5) Bacterial pneumonia Additional Text: Left lower lobe Status: Acute Priority: High Present on admission?: Yes Current Visit: Yes (6) Dementia without behavioral disturbance Status: Chronic Priority: Medium Present on admission?: Yes Current Visit: Yes (7) Essential hypertension Status: Acute Priority: Medium Present on admission?: Yes Current Visit: Yes Plan/Treatment Current Plan: See New Orders Plan: Assessment and plan acute metabolic encephalopathy secondary to COVID-19 pneumonia COVID-19 pneumonia With superimposed left lower lobe bacterial pneumonia history of hypertension dementia without behavioral disturbance prediabetes CKD stage IIIB chief complaint: Altered mental status this is an 85-year-old man who resides at assisted living presented to the emergency department with altered mental status. At baseline he has dementia. History was obtained from the patient's daughter as the patient is somewhat encephalopathic and could not recall why he came into the hospital. Chest x- raydemonstrated a left lower lobe infiltrate. He is somewhat withdrawn on examination. Peripheral saturations were 96% on room air. An VBG was notable for 7.33/40/55/25 on room air. Lactic acid was found to be normal. Rapid COVID swab was found to be negative. He was admitted for acute metabolic encephalopathy secondary to COVID-19. As per discussion with the patient's daughter he is a DNR but may intubate in respiratory arrest orfailure. upon arrival to the floor the patient is noted to be slightly tachypneic with diminished breath sounds at the bases. He is currently 94% on room air. An VBGthat was performed in the emergency room shows mild hypercapnia at 7.33/40 8/55 /25 consistent with a mild uncompensated hypercapnic respiratory failure. He is high risk for decompensation. His daughter was informed of the admission andhe is currently a DNR but may intubate in respiratory failure or respiratory arrest. Chest x-ray is consistent with a left lower lobe infiltrate. He is started on ceftriaxone and azithromycin as well as duo nebs around the clock. acute metabolic encephalopathy secondary to COVID-19 pneumonia - somewhat withdrawn. Ordered for regular meals we will re-evaluate mental status in a.m.. Baselineaccording to patient's daughter is he ambulates witha walker but can not perform complex tasks. He recognizes his family but at times is less aware. COVID-19 pneumonia With superimposed left lower lobe bacterial pneumonia - Repeat chest x-ray in a.m.. We will monitor clinically. DuoNebs around the clock. Currently does not qualify for steroids as he is not requiring oxygen. No remdesivir indicated at this time. Patient states that he did receive his COVID vaccinations however he is unreliable in terms of history. history of hypertension - Continue hydralazine as per patient's home dose. dementia without behavioral disturbance - Stable monitor clinically. prediabetes A1c 6.2% April of 2025 - stable monitor blood sugars on daily labs. CKD stage IIIB - Creatinine 1.30, at baseline. We will monitor. DVT prophylaxis: Lovenox. Disposition: We will assure patient is tolerating meals and attempt to ambulate prior to discharge.Monitor oxygen requirement closely. Per ethics patient is may intubate but do not resuscitate in cardiac arrest. New Orders: New Orders-Lab 07/20/25 04:00 CBC w/Auto Differential [HEM] Routine Comprehensive Metabolic Panel [CHM] Routine Magnesium [CHM] Routine Phosphorus [CHM] Routine TSH, 3rd Generation [CHM] Routine New Orders-Nursing Care 07/19/25 14:41 Accucheck-Nurse Collect [RC] PRN Ambulate With Assistance [RC] PRN 07/19/25 14:43 Vital Signs [RC] EVENQ4 07/19/25 Dinner regular diet [DIET] New Order-Therapy 07/19/25 14:48 Respiratory Aerosol Treatment [RESP] ONE Medications 07/19/25 14:41 Acetaminophen [Tylenol 325 mg Tablet] 650 mg PO Q6H PRN Ondansetron HCl/Pf [Zofran 4 mg/2 ml Injection] 4 mg IVP Q4H PRN 07/19/25 14:48 Ipratropium/Albuterol Sulfate [Duoneb Nebulizer Solution] 3 ml IH RTQ4 PRN 07/19/25 16:00 Enoxaparin Sodium [Lovenox 40 mg/0.4 ml Injection] 40 mg SQ Q24H Pantoprazole Sodium [Protonix 40 mg Injection] 40 mg IVP Q24H 07/19/25 18:00 Donepezil HCl [Aricept 5 mg Tablet] 5 mg PO QPM Tamsulosin HCl [Flomax 0.4 mg Capsule] 0.4 mg PO QPM 07/19/25 20:00 Acetaminophen [Tylenol Es 500 mg Tablet] 500 mg PO BID Divalproex Sodium [Depakote] 125 mg PO BID 07/19/25 22:00 Atorvastatin Calcium [Lipitor 10 mg Tablets] 20 mg PO QHS Hydralazine HCl [Apresoline 25 mg Tablet] 12.5 mg PO TID 07/20/25 09:00 Aspirin [Aspirin 81 mg Chew Tablet] 81 mg PO DAILY Cholecalciferol (Vitamin D3) [Vitamin D3 1000 Unit Tablet] 2,000 unit PO DAILY Cyanocobalamin (Vitamin B-12) [Vitamin B-12 500 Mcg Tablet] 500 mcg PO DAILY Fenofibrate Nanocrystallized [Tricor 145 mg Tablet] 145 mg PO DAILY Finasteride [Proscar 5 mg Tablet] 5 mg PO DAILY Visit Coding - VISIT CODING Date of Service: 07/19/25 Billing Provider:: RL MARTINES Common Visit Codes: [id number] INP/OBS CARE (HIGH) Electronically Generated By:RL MARTIENS MD Generated Date/Time: 07/19/25 1505 Electronically Signed By: 07/20/25 0851 Co Signed Electronically By: Co Signed Date/Time: CC: JAEL ASHLEY DO [facility]10-05-[address] [address] HEALTH INFORMATION MANAGEMENT EMERGENCY DEPARTMENT : [id number] Signed Patient: WILEY MEEK Acct:[id number] MRUN: [id number] : 1940 Sex: M Loc: ICU AD M Date: 07/19/25 Room/Bed: 357-A DISC Date: History of Present Illness - General Chief Complaint: Altered Mental Status Symptom onset: TODAY HPI: TO ED [facility]IA [facility] FROM [facility]. PT WAS A&OX4 LAST NIGHT. WOKE UP CONFUSED, A&OX2. FELL THIS MORNING, NO BLOOD THINNERS, DENIES HITTING HEAD. EMS STATES STRONG FOUL SMELLING URINE. Time Seen by Provider: 07/19/25 10:34 Source: Patient, RN/MD Mode of Transport: [facility] - History of Present Illness Initial Comments: patient is an 85-year-old male history of dementia, diabetes, metabolic encephalopathy, jail resident brought into emergency department for evaluation of worsening confusion over his baselinedementia and ground level fall earlier this morning. Patient was apparently found in his bathroom this morning and seemed to be confused . He was subsequently brought into emergency department for evaluation. Last known well was last night. Patient apparently has had similar episodes in the past. Reportedly not on any blood thinners. Patient is a poor historian. Most of the history was obtained from nursing staff. MD Complaint: Complains of: altered mental status - Related Data Home Medications Medication Instructions Recorded Confirmed Fenofibrate Nanocrystallized 145 mg PO DAILY 12/08/17 07/19/25 [Fenofibrate] Finasteride 5 mg PO DAILY 12/08/17 07/19/25 Aspirin [Aspirin 81 mg Chew Tablet] 81 mg PO DAILY 10/13/20 07/19/25 Donepezil HCl [Aricept 5 mg Tablet] 5 mg PO QPM 10/13/20 07/19/25 Tamsulosin HCl [Flomax 0.4 mg 0.4 mg PO QPM 10/13/20 07/19/25 Capsule] Divalproex Sodium [Depakote] 125 mg PO BID 08/11/21 07/19/25 Acetaminophen [Acetaminophen Extra 500 mg PO BID 06/01/23 07/19/25 Strength] Cimetidine 400 mg PO BID 06/01/23 07/19/25 Dexlansoprazole [Dexilant] 60 mg PO DAILY 06/01/23 07/19/25 Cholecalciferol (Vitamin D3) 2,000 unit PO DAILY 10/22/24 07/19/25 [Vitamin D3 1000 Unit Tablet] Cyanocobalamin (Vitamin B-12) 500 mcg PO DAILY 10/22/24 07/19/25 [Vitamin B-12 500 Mcg Tablet] Lactobacillus Acidophilus 100 mg PO DAILY 10/22/24 07/19/25 [Acidophilus] Pravastatin Sodium 80 mg PO QHS 10/23/24 07/19/25 Cholecalciferol (Vitamin D3) 2,000 unit PO DAILY 07/19/25 07/19/25 [Vitamin D3 1000 Unit Tablet] Cyanocobalamin (Vitamin B-12) 5,000 mcg PO DAILY 07/19/25 07/19/25 [Vitamin B12] Hydralazine HCl 12.5 mg PO TID 07/19/25 07/19/25 Allergies Allergy/AdvReac Type Severity Reaction Status Date / Time morphine Allergy Verified 10/22/24 18:11 Sulfa (Sulfonamide Allergy Verified 10/22/24 18:11 Antibiotics) Review of System - Constitutional Constitutional: Present: Well developed, Well nourished, Non-toxic - Respiratory Respiratory: Present: no symptoms reported - CV Cardiology: Present: no symptoms reported - GI Gastrointestinal/Abdominal: Present: no symptoms reported - All Others/Exceptions Unable To Obtain Complete ROS: Dementia ED PMH/Social HX/Family HX - Respiratory Hx Respiratory Disorders: Yes (reviewed ) PMH--Respiratory: Asthma, Bronchitis - Cardiovascular Hx Cardiac Disorders: Yes PMH--Cardiovascular: HTN, Hypercholesterolemia - Neurological Hx Neurological Disorder: Yes PMH--Neurological: Dementia, Memory Loss - Endocrine Hx Endocrine Disorders: Yes PMH--Endocrine History: Diabetes Type 2 - Gastrointestinal Hx Gastrointestinal Disorders: Yes PMH--Gastrointestinal: GERD, Hernia Other GI PMH: heart burn Past Surgical Hx--GI: Appendectomy - Genitourinary Hx Genitourinary Disorders: Yes PMH--Genitourinary: UTI - Musculoskeletal Hx Musculoskeletal Disorders: No PMH--Musculoskeletal: Arthritis - Reproductive Hx Reproductive Disorders: No - Psychological Hx Psychosocial Problems: Yes PMH--Psychological & Treatments: Depression - HEENT Hx Ear, Nose Throat Disorders: Yes PMH--Ears Nose and Throat: Cataracts, Farsighted Past Surgical Hx-ENT: Cataract Removal-Right, Cataract Removal-Left - Cancer Hx Cancer: No - Other Other PMH: Chicken Pox, Measles, Mumps - Social History Highest Educational Level: High School Able to Read: Yes Able to Write: Yes Smoking Status: Never Smoked Hx Chewing Tobacco Use: No Alcohol Use: Never Any recreational drug use reported?: No Hx Substance Use Treatment: No Feels Threatened In Home Environment: No Feels Threatened In a Relationship: No - Family PMH Father Living Status: Cardiac: Cardiac Disorder(s), Myocardial Infarction Mother Living Status: Cancer History: Breast Cancer - Sweet/Gender ID What is your current Gender Identity? Choose all that Apply: Male Define your Sexual Orientation?: Straight/Heterosexual - Crane-Suicide Severity Rating Scale 1) Wish to be :: No 2) Suicidal Thoughts:: No 6) Suicidal Behavior Question (A): LIFETIME: No 6) Suicidal Behavior Question (B): PAST 3 MONTHS: No General Exam - General Limitations: Complains of: altered mental status Constitutional: Present: Well developed, Well nourished, Non-toxic - Head Head exam: Present: atraumatic, normocephalic - Eye Eye exam: Present: EOMI. Absent: scleral icterus, conjunctival injection Pupils: Present: PERRL - ENT ENT exam: Present: mucous membranes dry - Neck Neck exam: Present: full ROM, Supple. Absent: tenderness, meningismus, anteriorneck swelling - Respiratory Respiratory exam: Absent: respiratory distress, stridor - Cardiovascular Cardiovascular Exam: Present: regular rate - GI/Abdominal GI/Abdominal exam: Present: soft, non tender - Extremities Exam Extremities exam: Present: normal inspection, neurovascularly intact, full ROM - Back Exam Back exam: Present: normal inspection, full ROM. Absent: paraspinal tenderness,vertebral tenderness, cervical tenderness, thoracic tenderness, lumbar tenderness - Neurological Exam Neurological exam: Present: alert, other ( patient is awake, alert. Sometimes he answers questions appropriately and sometimes does not. Following commands.) - Skin Skin Color: Present: Normal Skin exam: Present: warm - Vital Signs Vital Signs 07/19/25 07/19/25 07/19/25 10:32 10:43 10:47 Temperature 98 F 98 F Pulse Rate 98 Pulse Rate [ 98 98 Left Pulse Ox] Respiratory 18 18 Rate Blood Pressure Blood Pressure 120/72 120/72 [Left Arm] O2 Sat by Pulse 96 96 95 Oximetry(%) 07/19/25 07/19/25 07/19/25 10:49 10:50 11:00 Temperature Pulse Rate 98 98 Pulse Rate [ Left Pulse Ox] Respiratory Rate Blood Pressure 131/72 Blood Pressure [Left Arm] O2 Sat by Pulse 94 L 94 L 94 L Oximetry(%) 07/19/25 07/19/25 07/19/25 11:10 11:20 11:38 Temperature Pulse Rate 96 89 92 Pulse Rate [ Left Pulse Ox] Respiratory Rate Blood Pressure Blood Pressure [Left Arm] O2 Sat by Pulse 96 96 97 Oximetry(%) 07/19/25 07/19/25 07/19/25 11:40 11:50 11:52 Temperature Pulse Rate 92 92 90 Pulse Rate [ Left Pulse Ox] Respiratory Rate Blood Pressure 137/87 Blood Pressure [Left Arm] O2 Sat by Pulse 96 96 97 Oximetry(%) 07/19/25 07/19/25 07/19/25 12:00 12:01 12:10 Temperature Pulse Rate 91 95 91 Pulse Rate [ Left Pulse Ox] Respiratory Rate Blood Pressure 149/94 H Blood Pressure [Left Arm] O2 Sat by Pulse 96 97 97 Oximetry(%) 07/19/25 07/19/25 07/19/25 12:30 13:00 13:30 Temperature 97.9 F Pulse Rate Pulse Rate [ Left Pulse Ox] Respiratory Rate Blood Pressure 152/92 H 139/91 H 138/92 H Blood Pressure [Left Arm] O2 Sat by Pulse Oximetry(%) ED AMS MDM - Lab Data Result diagrams: 07/20/25 04:30 07/20/25 04:30 Lab Results 07/19/25 07/19/25 07/19/25 Range/Units 10:40 11:04 11:15 WBC 8.5 (3.6-10.8) K/uL RBC 3.91 L (4.13-5.69) M/uL Hgb 12.5 (12.4-17.3) g/dL Hct 37.8 (36.7-50.6) % MCV 96.7 H (80.0-94.0) fL MCH 32.0 H (27.0-31.0) pg MCHC 33.1 (33.0-37.0) g/dL RDW 13.8 (11.5-14.5) % Plt Count 267 (148-402) K/uL MPV 9.3 (7.4-10.4) fL Neut % (Auto) 88.9 H (43.0-65.0) % Lymph % (Auto) 4.7 L (17.0-45.5) % [place] % (Auto) 5.2 L (5.5-11.7) % Eos % (Auto) 0.8 L (0.9-2.9) % Baso % (Auto) 0.2 (0.2-1.0) % Abs Immat Gran (man) 0.02 (0.00-0.10) K/uL Absolute Neuts (auto) 7.54 H (2.20-4.80) K/uL Absolute Lymphs (auto) 0.40 L (1.30-2.90) K/uL Absolute Monos (auto) 0.40 (0.30-0.80) K/uL Absolute Eos (auto) 0.10 (0.00-0.20) K/uL Absolute Basos (auto) 0.02 (0.00-0.10) K/uL Immature Gran % 0.20 (0.00-1.00) % PT (8.9-12.2) sec INR ratio Sodium 140 (132-145) mmol/L Potassium 4.5 (3.3-5.1) mmol/L Chloride 105 (94-110) mmol/L Total Carbon Dioxide 27 (21-34) mmol/L Anion Gap 12.5 (8.0-16.0) mmol/L BUN 26.4 (3.2-26.9) mg/dL Creatinine 1.50 H (0.50-1.17) mg/dL Est GFR (MDRD) Af Amer 54 A (>60) Est GFR (MDRD) Non-Af 45 A (>60) BUN/Creatinine Ratio 18 (6-20) Glucose 121 H (65-100) mg/dL POC Glucose (mg/dL) 124 (65-110) mg/dL Plasma Lactic Acid Memo (0.4-2.0) mmol/L Calcium 8.8 (8.2-10.0) mg/dL Total Bilirubin 0.68 (0.00-0.99) mg/dL AST 55 H (3-39) U/L ALT 39 (13-66) U/L Alkaline Phosphatase 52 L (54-112) U/L Troponin I High Sens 7 (0-76) ng/L Troponin I Hi Sens Del % Troponin I Hi Sens Abs Chng ng/L Total Protein 7.0 (6.1-8.2) g/dL Albumin 3.3 L (3.4-5.0) g/dL Globulin 3.7 (1.5-4.5) g/dL Albumin/Globulin Ratio 0.9 L (1.1-2.5) Urine Color (Yellow) Urine Appearance (Clear) Urine pH Ur Specific [place] (1.015-1.025) Urine Protein (Negative) Urine Ketones (Negative) Urine Blood (Negative) Urine Nitrite (Negative) Urine Bilirubin (Negative) Urine Urobilinogen (Normal-1.0) mg/dL Ur Leukocyte Esterase (Negative) Urine RBC (0 - 2) /hpf Urine WBC (0 - 6) /hpf Urine Glucose (Negative) Influenza Type A Ag ((Negative)) Influenza Type B Ag ((Negative)) SARS-CoV-2 Ag (Rapid) (Negative) 07/19/25 07/19/25 07/19/25 Range/Units 11:15 11:21 12:30 WBC (3.6-10.8) K/uL RBC (4.13-5.69) M/uL Hgb (12.4-17.3) g/dL Hct (36.7-50.6) % MCV (80.0-94.0) fL MCH (27.0-31.0) pg MCHC (33.0-37.0) g/dL RDW (11.5-14.5) % Plt Count (148-402) K/uL MPV (7.4-10.4) fL Neut % (Auto) (43.0-65.0) % Lymph % (Auto) (17.0-45.5) % [place] % (Auto) (5.5-11.7) % Eos % (Auto) (0.9-2.9) % Baso % (Auto) (0.2-1.0) % Abs Immat Gran (man) (0.00-0.10) K/uL Absolute Neuts (auto) (2.20-4.80) K/uL Absolute Lymphs (auto) (1.30-2.90) K/uL Absolute Monos (auto) (0.30-0.80) K/uL Absolute Eos (auto) (0.00-0.20) K/uL Absolute Basos (auto) (0.00-0.10) K/uL Immature Gran % (0.00-1.00) % PT 10.3 (8.9-12.2) sec INR 1.0 ratio Sodium (132-145) mmol/L Potassium (3.3-5.1) mmol/L Chloride (94-110) mmol/L Total Carbon Dioxide (21-34) mmol/L Anion Gap (8.0-16.0) mmol/L BUN (3.2-26.9) mg/dL Creatinine (0.50-1.17) mg/dL Est GFR (MDRD) Af Amer (>60) Est GFR (MDRD) Non-Af (>60) BUN/Creatinine Ratio (6-20) Glucose (65-100) mg/dL POC Glucose (mg/dL) (65-110) mg/dL Plasma Lactic Acid Memo (0.4-2.0) mmol/L Calcium (8.2-10.0) mg/dL Total Bilirubin (0.00-0.99) mg/dL AST (3-39) U/L ALT (13-66) U/L Alkaline Phosphatase (54-112) U/L Troponin I High Sens 8 (0-76) ng/L Troponin I Hi Sens Del 13 % Troponin I Hi Sens Abs Chng 1 ng/L Total Protein (6.1-8.2) g/dL Albumin (3.4-5.0) g/dL Globulin (1.5-4.5) g/dL Albumin/Globulin Ratio (1.1-2.5) Urine Color yellow (Yellow) Urine Appearance Clear (Clear) Urine pH 6.5 Ur Specific [place] 1.015 (1.015-1.025) Urine Protein 15 A (Negative) Urine Ketones Negative (Negative) Urine Blood 10 A (Negative) Urine Nitrite Negative (Negative) Urine Bilirubin Negative (Negative) Urine Urobilinogen Normal (Normal-1.0) mg/dL Ur Leukocyte Esterase Negative (Negative) Urine RBC 0-2 (0 - 2) /hpf Urine WBC None seen (0 - 6) /hpf Urine Glucose Normal (Negative) Influenza Type A Ag ((Negative)) Influenza Type B Ag ((Negative)) SARS-CoV-2 Ag (Rapid) (Negative) 07/19/25 07/19/25 07/19/25 Range/Units 12:31 12:35 12:35 WBC (3.6-10.8) K/uL RBC (4.13-5.69) M/uL Hgb (12.4-17.3) g/dL Hct (36.7-50.6) % MCV (80.0-94.0) fL MCH (27.0-31.0) pg MCHC (33.0-37.0) g/dL RDW (11.5-14.5) % Plt Count (148-402) K/uL MPV (7.4-10.4) fL Neut % (Auto) (43.0-65.0) % Lymph % (Auto) (17.0-45.5) % [place] % (Auto) (5.5-11.7) % Eos % (Auto) (0.9-2.9) % Baso % (Auto) (0.2-1.0) % Abs Immat Gran (man) (0.00-0.10) K/uL Absolute Neuts (auto) (2.20-4.80) K/uL Absolute Lymphs (auto) (1.30-2.90) K/uL Absolute Monos (auto) (0.30-0.80) K/uL Absolute Eos (auto) (0.00-0.20) K/uL Absolute Basos (auto) (0.00-0.10) K/uL Immature Gran % (0.00-1.00) % PT (8.9-12.2) sec INR ratio Sodium (132-145) mmol/L Potassium (3.3-5.1) mmol/L Chloride (94-110) mmol/L Total Carbon Dioxide (21-34) mmol/L Anion Gap (8.0-16.0) mmol/L BUN (3.2-26.9) mg/dL Creatinine (0.50-1.17) mg/dL Est GFR (MDRD) Af Amer (>60) Est GFR (MDRD) Non-Af (>60) BUN/Creatinine Ratio (6-20) Glucose (65-100) mg/dL POC Glucose (mg/dL) (65-110) mg/dL Plasma Lactic Acid Memo 1.4 (0.4-2.0) mmol/L Calcium (8.2-10.0) mg/dL Total Bilirubin (0.00-0.99) mg/dL AST (3-39) U/L ALT (13-66) U/L Alkaline Phosphatase (54-112) U/L Troponin I High Sens (0-76) ng/L Troponin I Hi Sens Del % Troponin I Hi Sens Abs Chng ng/L Total Protein (6.1-8.2) g/dL Albumin (3.4-5.0) g/dL Globulin (1.5-4.5) g/dL Albumin/Globulin Ratio (1.1-2.5) Urine Color (Yellow) Urine Appearance (Clear) Urine pH Ur Specific [place] (1.015-1.025) Urine Protein (Negative) Urine Ketones (Negative) Urine Blood (Negative) Urine Nitrite (Negative) Urine Bilirubin (Negative) Urine Urobilinogen (Normal-1.0) mg/dL Ur Leukocyte Esterase (Negative) Urine RBC (0 - 2) /hpf Urine WBC (0 - 6) /hpf Urine Glucose (Negative) Influenza Type A Ag Negative ((Negative)) Influenza Type B Ag Negative ((Negative)) SARS-CoV-2 Ag (Rapid) Positive A (Negative) Orders: Medications Acetaminophen (Acetaminophen 325 Mg Tablet) 650 mg PO Q6H PRN PRN Reason: MILD PAIN(1-3) OR FEVER Stop: 08/19/25 14:42 Last Admin: 07/20/25 03:51 Dose: 650 mg Documented by: [email or web address] Acetaminophen (Acetaminophen 500 Mg Tablet) 500 mg PO BID [facility] Stop: 08/19/25 20:01 Last Admin: 07/19/25 19:38 Dose: 500 mg Documented by: [email or web address] Albuterol/Ipratropium (Ipratropium/Albuterol Sulf Neb Solution) 3 ml IH RTQ4 [facility] Stop: 08/19/25 16:01 Last Admin: 07/20/25 04:20 Dose: 3 ml Documented by: [email or web address] Atorvastatin Calcium (Atorvastatin Calcium 10 Mg Tablet) 20 mg PO QHS [facility] Stop: 08/19/25 22:01 Last Admin: 07/19/25 22:32 Dose: 20 mg Documented by: [email or web address] Divalproex Sodium (Divalproex Sodium 125 Mg Sprinkle Capsule) 125 mg PO BID [facility] Stop: 08/19/25 20:01 Last Admin: 07/19/25 19:38 Dose: 125 mg Documented by: [email or web address] Donepezil HCl (Donepezil Hcl 5 Mg Tablet) 5 mg PO QPM [facility] Stop: 08/19/25 18:01 Last Admin: 07/19/25 18:35 Dose: 5 mg Documented by: [email or web address] Enoxaparin Sodium (Enoxaparin Sodium 40 Mg/0.4 Ml Injection) 40 mg SQ Q24H [facility];Protocol Stop: 08/19/25 16:01 Last Admin: 07/19/25 16:45 Dose: 40 mg Documented by: [email or web address] Cosigned by: [email or web address] Hydralazine HCl (Hydralazine Hcl 25 Mg Tablet) 12.5 mg PO TID [facility] Stop: 08/19/25 22:01 Last Admin: 07/20/25 06:08 Dose: 12.5 mg Documented by: [email or web address] Azithromycin 500 mg/ Sodium (Chloride) 250 mls @ 250 mls/hr IVPB Q24H [facility] Stop: 07/26/25 16:01 Last Infusion: 07/19/25 18:55 Dose: 0 mls/hr, 0 mls/hr Documented by: [email or web address] Nystatin (Nystatin 500,000 Unit/5 Ml Suspension) 500,000 unit PO QID [facility] Stop: 07/26/25 18:01 Last Admin: 07/20/25 06:09 Dose: 500,000 unit Documented by: [email or web address] Pantoprazole Sodium (Pantoprazole Sodium 40 Mg Injection) 40 mg IVP Q24H [facility] Stop: 08/19/25 16:01 Last Admin: 07/19/25 16:45 Dose: 40 mg Documented by: [email or web address] Tamsulosin HCl (Tamsulosin Hcl 0.4 Mg Capsule) 0.4 mg PO QPM [facility] Stop: 08/19/25 18:01 Last Admin: 07/19/25 18:35 Dose: 0.4 mg Documented by: [email or web address] Discontinued Medications Sodium Chloride (Sodium Chloride 0.9 % 1000 Ml) 1,000 mls @ 999 mls/hr IV .Q1H1M [facility] Stop: 07/19/25 11:46 Last Infusion: 07/19/25 12:18 Dose: 0 mls/hr Documented by: [email or web address] Ceftriaxone Sodium 1 gm/ (Sodium Chloride) 50 mls @ 100 mls/hr IVPB STAT ST[facility] Stop: 07/19/25 12:32 Last Infusion: 07/19/25 14:00 Dose: 0 mls/hr, 0 mls/hr Documented by: [email or web address] Labs 07/19/25 20:04 High Sensitivity Troponin I* [CHM] Routine - Radiology Data IMPRESSIONS Chest X-Ray 07/19/25 10:45 IMPRESSION: 1. Left lung base airspace disease 2. The right lung is clear. Brain CT 07/19/25 10:46 IMPRESSION: 1. No evidence of acute intracranial process. 2. Prominence of the sulci and/or CSF spaces suggests a degree of cerebral atrophy. 3. 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 Cervical Spine CT 07/19/25 10:46 IMPRESSION: 1. Prominent posterior central disc protrusion C6-C7 resulting in central canal and mild lateral recess narrowing If the patient has any related symptoms, an MRI examination of the cervical spine could be obtained. 2. No evidence of acute fracture with degenerative and/or chronic changes as described. 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 Normal NC interval. Right bundle branch block. Electronically Signed On 07-19-2025 11:34:18 EDT by Bryanna Gaffney - Medical Decision Making ED Course: [ patient is an 85-year-old male history of dementia, diabetes, metabolic encephalopathy, jail resident brought into emergency department for evaluation of worsening confusion overhis baseline dementia and ground level fall earlier this morning. Patient was apparently found in his bathroom this morning and seemed to be confused . He was subsequently brought into emergency department for evaluation. Last known well was last night. Patient apparently has had similar episodes in the past. Reportedly not on any blood thinners. Patient is a poor historian. Most of the history was obtained from nursing staff.] Prior records reviewed: The patient has received a medical screening examination: within reasonable clinical confidence hasbeen stabilized in the ED. Reviewed pertinent findings from resulted labs: [Yes ] Imaging : Interpretation by radiology . [Yes ] [ EKG interpreted by myself and discussed with patient. Full EKG read found on [employer]Server ] Presenting clinical condition necessitates admission or observation consideration: [ Yes ] Independent Hx provided by: [ Patient/RN ] Med Rx considered but ultimately not given: [ none ] Dx tests considered but ultimately not ordered: [ none ] Social determinant that may affects healthcare: [ none ] Pt?s case/impression summarized and discussed with: [ Patient/Hospitalist ] Likely Dx given clinical picture: [ metabolic encephalopathy, ground level fall, generalized weakness, pneumonia, COVID-19 infection] Although not an exhaustive list of Differential Diagnosis (though considered), patient?s HPI, PE, and other findings are not suggestive of: [ ] 6 IMPRESSION: 1. No evidence of acute intracranial process. 2. Prominence of the sulci and/or CSF spaces suggests a degree of cerebral atrophy. 3. 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 Cervical Spine CT 07/19/25 10:46 IMPRESSION: 1. Prominent posterior central disc protrusion C6-C7 resulting in central canal and mild lateral recess narrowing If the patient has any related symptoms, an MRI examination of the cervical spine could be obtained. 2. No evidence of acute fracture with degenerative and/or chronic changes as described. Chest X-Ray 07/19/25 10:45 IMPRESSION: 1. Left lung base airspace disease 2. The right lung is clear. Above imaging results reviewed. He tested positive for COVID-19. He does not seem to be hypoxic. Blood cultures are obtained patient was administered IV antibiotics for probable lung airspace disease. He was also administered IV fluids for dehydration. patient would benefit from admission to hospital for further evaluation, IV hydration, IV antibiotics and reassessment. Case discussed with Dr. Martines and she agreed to admit the patient. [ Patient at the time of disposition was stable however in serious and/or critical condition from their presenting complaint thus requiring admission. The patient and/or family was given the opportunity to ask questions prior to admission, understood my verbal discussion of the plans for treatment,expected course, and the need for timely follow up as directed. ] Condition: Stable Disposition: [ admit ] This document has been created using voice recognition software and may contain grammatical and typographical errors. ED Discharge Summary - Discharge Data Clinical Impression: Ground-level fall, Pneumonia, Dehydration, Metabolic encephalopathy, Generalized weakness, COVID-19virus infection Condition: Fair Disposition: 09 ADMITTED INPATIENT Home Medications: Ambulatory Orders Medication Instructions Recorded Fenofibrate Nanocrystallized 145 mg PO DAILY 12/08/17 [Fenofibrate] Finasteride 5 mg PO DAILY 12/08/17 Aspirin [Aspirin 81 mg Chew Tablet] 81 mg PO DAILY 10/13/20 Donepezil HCl [Aricept 5 mg Tablet] 5 mg PO QPM 10/13/20 Tamsulosin HCl [Flomax 0.4 mg 0.4 mg PO QPM 10/13/20 Capsule] Divalproex Sodium [Depakote] 125 mg PO BID 08/11/21 Acetaminophen [Acetaminophen Extra 500 mg PO BID 06/01/23 Strength] Cimetidine 400 mg PO BID 06/01/23 Dexlansoprazole [Dexilant] 60 mg PO DAILY 06/01/23 Cholecalciferol (Vitamin D3) 2,000 unit PO DAILY 10/22/24 [Vitamin D3 1000 Unit Tablet] Cyanocobalamin (Vitamin B-12) 500 mcg PO DAILY 10/22/24 [Vitamin B-12 500 Mcg Tablet] Lactobacillus Acidophilus 100 mg PO DAILY 10/22/24 [Acidophilus] Pravastatin Sodium 80 mg PO QHS 10/23/24 Cholecalciferol (Vitamin D3) 2,000 unit PO DAILY 07/19/25 [Vitamin D3 1000 Unit Tablet] Cyanocobalamin (Vitamin B-12) 5,000 mcg PO DAILY 07/19/25 [Vitamin B12] Hydralazine HCl 12.5 mg PO TID 07/19/25 Time Seen by Provider: 07/19/25 10:34 Electronically Generated By:BRYANNA GAFFNEY MD Generated Date/Time: 07/19/25 1052 Electronically Signed By: 07/20/25 0814 Co Signed Electronically By: Co Signed Date/Time: CC: JAEL ASHLEY [facility]10-04-2025 Evaluation note* Diagnosis Onset Date Resolution Status Admit Date Bacterial pneumonia acute Octob er 2024 12:38pm COVID-19 virus infection acute July 19, 2025 12:38pm Dehydration acute July 19, 2025 12:38pm Primary hypertension acute Julo re 2024 12:38pm Fall from standing July, acute Oct vadim 2024 12:38pm Generalized weakness acute Octo re 2024 12:38pm Ground-level fall acute July 19, 2025 12:38pm Metabolic encephalopathy acute July 19, 2025 12:38pm Pneumonia acute July 19, 12:38pm Pneumonia due to COVID-19 virus July, acute July 19 12:38pm Chronic renal failure, stage 3b chronic July 19 12:38pm Dementia without behavioral disturbance chronic July 19 12:38pm Prediabetes chronic July 19, 2025 12:38pm Acute metabolic encephalopathy July, resolved July 19 12:38pm [facility] Work Phone: 1([phone] 979-293110-04-2025 Radiology Diagnostic study note [facility] [address] [address] [address] SCAN REPORT : [id number], Signed. Patient: WILEY MEEK : 1940 MR#: [id number] Acct:[id number] - EXAM: CT Head Without Intravenous Contrast EXAM DATE/TIME: 07/19/2025 11:49 am CLINICAL HISTORY: ORDERING SYSTEM PROVIDED HISTORY: Fall TECHNIQUE: Axial computed tomography images of the head/brain without intravenous contrast. This CT exam was performed using one or more of the following dose reduction techniques: automated exposure control, adjustment of the mA and/or kV according to patient size, and/or use of iterative reconstruction technique. COMPARISON: 10/22/2024 FINDINGS: Brain: No evidence of acute intracranial process. No acute ischemia. No mass or mass effect. No acute intracranial hemorrhage. 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 Prominence of the sulci and/or CSF spaces suggests a degree of cerebral atrophy. Ventricles: No acute findings. No ventriculomegaly. Bones/joints: No acute findings. No acute fracture. Soft tissues: No acute findings. Sinuses: Mild right ethmoid chronic sinusitis. Mastoid air cells: Unremarkable as visualized. No mastoid effusion. CT/CT BRAIN WO IMPRESSION: 1. No evidence of acute intracranial process. 2. Prominence of the sulci and/or CSF spaces suggests a degree of cerebral atrophy. 3. 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 All CT scans at this facility use dose modulation, iterative reconstruction, and/or weight based dosing when appropriate to reduce radiation dose to as low as reasonably achievable. Electronically Signed by: Devang Jackson MD Signed date/time: 07/19/25 3138 CC: JAEL ASHLEY DO; BRYANNA GAFFNEY MD [facility] Work Phone: 1(129) 910-897910-04-2025 Radiology Diagnostic study note [facility] [address] [address] DIAGNOSTIC RADIOLOGY REPORT: [id number], Signed. 2 Patient: WILEY MEEK : 1940, age 85 MR#: [id number] Acct: [id number] - EXAMINATION: ONE XRAY VIEW OF THE CHEST 07/19/2025 11:49 am COMPARISON: None. HISTORY: ORDERING SYSTEM PROVIDED HISTORY: cough FINDINGS: The cardiac silhouette is within normals. There is no mediastinal widening The right lung is clear There is left lung base airspace disease. The left upper lobe is clear. DIAG/CHEST AP IMPRESSION: 1. Left lung base airspace disease 2. The right lung is clear. Electronically Signed by: CHRISTEL MOELLER MD Signed date/time: 07/19/25 8095 CC: JAEL ASHLEY DO; BRYNANA GAFFNEY MD [facility] Work Phone: 1([phone]) 245-602710-04-2025 Radiology Diagnostic study note [facility] [address] [address] [address] SCAN REPORT : [id number], Signed. Patient: WILEY MEEK : 1940 MR#: [id number] Acct:[id number] - EXAM: CT Cervical Spine Without Intravenous Contrast EXAM DATE/TIME: 07/19/2025 11:49 am CLINICAL HISTORY: ORDERING SYSTEM PROVIDED HISTORY: pain, injury TECHNIQUE: Axial computed tomography images of the cervical spine without intravenous contrast. This CT exam was performed using one or more of the following dose reduction techniques: automated exposure control, adjustment of the mA and/or kV according to patient size, and/or use of iterative reconstruction technique. COMPARISON: No relevant prior studies available. FINDINGS: Vertebrae: Mild multilevel degenerative joint disease within the facets. Mild degenerative anterolisthesis C3 on C4. Discs/spinal canal/neural foramina: Prominent posterior central disc protrusion C6-C7 resulting in central canal and mild lateral recess narrowing C4-C6 degenerative disc disease. Bony foraminal narrowing C4-C6. Soft tissues: No acute findings. CT/CT CERVICAL WO IMPRESSION: 1. Prominent posterior central disc protrusion C6-C7 resulting in central canal and mild lateral recess narrowing If the patient has any related symptoms, an MRI examination of the cervical spine could be obtained. 2. No evidence of acute fracture with degenerative and/or chronic changes as described. All CT scans at this facility use dose modulation, iterative reconstruction, and/or weight based dosing when appropriate to reduce radiation dose to as low as reasonably achievable. Electronically Signed by: Devang Jackson MD Signed date/time: 07/19/25 1158 CC: JAEL ASHLEY DO; BRYANNA GAFFNEY MD [facility] Work Phone: 1(419) 264-604609-15-2025 Evaluation note* Encounter Date Assessment Date Assessment LastModified by Organization Details LastModified Time 06/30/2025 06/30/2025 IMAGING STUDIES 10/22/2024 CT BRAIN WO EXAMINATION: CT OF THE HEAD WITHOUT CONTRAST 10/22/2024 4:01 pm TECHNIQUE: CT of the head was performed without the administration of intravenous contrast. Automated exposure control, iterative reconstruction, and/or weight based adjustment of the mA/kV was utilized to reduce the radiation dose to as low as reasonably achievable. COMPARISON: 05/25/2024 HISTORY: ORDERING SYSTEM PROVIDED HISTORY: altered mental status FINDINGS: BRAIN/VENTRICLES: There is no acute intracranial hemorrhage, mass effect or midline shift. No abnormal extra-axial fluid collection. The connolly-white differentiation is maintained without evidence of an acute infarct. There is no evidence of hydrocephalus. Periventricular white matter changes consistent chronic microvascular disease. Diffuse volume loss. ORBITS: The visualized portion of the orbits demonstrate no acute abnormality. SINUSES: The visualized paranasal sinuses and mastoid air cells demonstrate no acute abnormality. SOFT TISSUES/SKULL: No acute abnormality of the visualized skull or soft tissues. IMPRESSION: 1. No acute intracranial abnormality. 2. Periventricular white matter changes consistent with chronic microvascular disease. 3. Diffuse volume loss. 10/22/2024 CHEST AP EXAMINATION: ONE XRAY VIEW OF THE CHEST 10/22/2024 3:43 pm COMPARISON: Portable chest from 12/22/2023. CT of the abdomen and pelvis from 09/01/2022. HISTORY: ORDERING SYSTEM PROVIDED HISTORY: Sepsis FINDINGS: There is no change in the massive hiatal hernia located within the left lower chest. There is increased moderate linear atelectasis of the left lower lobe and infrahilar region adjacent to the hiatal hernia. The rest of the chest remains clear. The lungs remain clear. There is no sign of any infiltrate or effusion. The heart remains normal in size. The mediastinum is normal in appearance. The osseous structures are normal in appearance for the patient's age. IMPRESSION: 1. No change in the massive hiatal hernia located within the left lower chest. 2. Increased moderate linear atelectasis of the left lower lobe and infrahilar region adjacent to the hiatal hernia. LABORATORY RESULTS 04/30/2025 Sodium 141 Potassium 4.3 Chloride 106 Total Co2 30 Glucose 204 BUN 24.2 Creatinine 1.80 Calcium 9.1 Albumin 3.3 Protein 6.9 Total Bilirubin 0.51 Alkaline Phosphatase 46 ALT (SGPT) 34 AST (SGOT) 34 Anion Gap 9.3 BUN/CREAT Ratio 13 A/G Ratio0 .9 1 Globulin 3.6 EGFR Other Races 36 EGFR 44 WBC 6.1 RBC 3.82 HCT 38.1 MCV 99.7 MCH 31.9 MCHC 32.0 RDW 14.1 Platelet Count 301 MPV 8.9 Hemoglobin A1c 6.2 CURRENT MEDICATIONS Acetamin 500 mg Acidophilus Probiotic Aspirin 81 mg Cimetidine 400 mg Dexlansopraz 60 mg Divalproex 125 mg Donepezil 5 mg Fenofibrate 145 mg Finasteride 5 mg fluororacil 5 % Hydralazine 12.5 mg Pravastatin 80 mg Tamsulosin 0.4 mb Vitamin B12 Vitamin D3 Not available 07/04/2025 12:39:18 [place] [facility] 07-28-2025 Evaluation note* Encounter Date Assessment Date Assessment LastModified by Organization Details LastModified Time 05/12/2025 05/12/2025 Medications on file at the facility. These were reviewed and updated Reviewed VS/Progress notes/Labs in facility EHR and/or chart Discussed resident with the facility clinical team. [email or web address] Not available 05/19/2025 10:08:56 [place] [facility] 01-25-[address] [address] HEALTH INFORMATION MANAGEMENT HISTORY AND PHYSICAL : [phone] Signed Patient: WILEY MEEK Acct:[id number] MRUN: [id number] : 1940 Sex: M Loc: ICU ADM Date: Room/Bed: 354-A DISC Date: 10/24/24 History of Present Illness Date Of Admission: 10/22/24 Chief Complaint: Confusion History of Present Illness: Visit History WILEY MEEK is a 84 year old M patient of MONTRELL EDWARD MD. Patient was admitted from Emergency Dept to room 354, bed A on 10/22/24 16:42. Pt was evaluated for complaints of confusion, then admitted to [facility] for ALTERED MENTAL STATUS ACUTE ON CHRONIC RENAL FAILU. WILEY was admitted as a ADM to [facility] for further evaluation and treatment. Pt was seen and evaluated on 10/22/242055, by this provider, INDIGO DOCKERY CNP. History of present illness: Mr. Meek an 84-year-old male comes to [facility] from [facility] with complaints of confusion change in mental status. Unfortunately patient is a very poor historian and was unsure why he was brought to the emergency room. I am obtaining medical information from the medical record. He does have a history of dementia. He denies fever, chills, cough, sore throat, runny nose, headache, dizziness / lightheadedness, congestion, rash, neck pain, shortness of breath, chest pain, abdominal pain, nausea / vomiting, diarrhea / constipation, blood in urine or stool, change in appetite, numbness/tingling / paresthesias, unilateral weakness, facial droop, change in vision hearing or speech, exposure to COVID positive individuals. He has a past medical history /surgical history that includes: Asthma, bronchitis, HTN, hypercholesterolemia, dementia, memory loss, type 2 diabetes, GERD, hernia, heartburn, appendectomy, UTI, arthritis, depression, cataracts, farsighted, bilateral cataract removal. Patient reports he has never smoked used alcohol or illicit drugs.Patient reports he received the COVID 19 vaccine and two boosters and received the flu shot this year. He is and lives at [facility]. He quit smoking in 1963 and denies using alcohol and drugs. Allergies/Adverse Reactions: morphine Allergy (Verified 10/22/24 18:11) Sulfa (Sulfonamide Antibiotics) Allergy (Verified 10/22/24 18:11) Home Medications: Patient History Fenofibrate Nanocrystallized [Fenofibrate] 145 mg PO DAILY 12/08/17 [History Confirmed 10/22/24] Finasteride 5 mg PO DAILY 12/08/17 [History Confirmed 10/22/24] Pravastatin Sodium 80 mg PO QPM 12/08/17 [History Confirmed 10/22/24] Aspirin [Aspirin 81 mg Chew Tablet] 81 mg PO DAILY 10/13/20 [History Confirmed 10/22/24] Donepezil HCl [Aricept 5 mg Tablet] 5 mg PO QPM 10/13/20 [History Confirmed 10/22/24] Tamsulosin HCl [Flomax 0.4 mg Capsule] 0.4 mg PO QPM 10/13/20 [History Confirmed 10/22/24] Divalproex Sodium [Depakote] 125 mg PO BID 08/11/21 [History Confirmed 10/22/24] Loperamide HCl [Loperamide] 2 mg PO Q6H PRN 08/11/21 [History Confirmed 10/22/24] Acetaminophen [Acetaminophen Extra Strength] 500 mg PO BID 06/01/23 [History Confirmed 10/22/24] Cimetidine 400 mg PO BID 06/01/23 [History Confirmed 10/22/24] Dexlansoprazole [Dexilant] 60 mg PO DAILY 06/01/23 [History Confirmed 10/22/24] Menthol [Biofreeze] 89 ml TP QID PRN 12/22/23 [History Confirmed 10/22/24] Cholecalciferol (Vitamin D3) [Vitamin D3 1000 Unit Tablet] 2,000 unit PO DAILY 10/22/24 [History Confirmed 10/22/24] Cyanocobalamin (Vitamin B-12) [Vitamin B-12 500 Mcg Tablet] 500 mcg PO DAILY 10/22/24 [History Confirmed 10/22/24] Lactobacillus Acidophilus [Acidophilus] 100 mg PO DAILY 10/22/24 [History Confirmed 10/22/24] RX history Hydralazine HCl 25 mg PO TID 30 Days #90 tablet 06/02/23 [Rx Confirmed 10/22/24] Past Social History Marital Status: Lives with: Nursing Facility Occupation: [facility] [employer] [facility] Highest Educational Level: High School Able to Read: Yes Able to Write: Yes Smoking Status: Never Smoked Alcohol Use: Never Drugs: None - Sweet/Gender ID What is your current Gender Identity? Choose all that Apply: Male Define your Sexual Orientation?: Straight/Heterosexual - Crane-Suicide Severity Rating Scale 1) Wish to be :: No 2) Suicidal Thoughts:: No 6) Suicidal Behavior Question (A): LIFETIME: No 6) Suicidal Behavior Question (B): PAST 3 MONTHS: No Past Medical History Hx Ear/Nose/Throat Disorders: Yes PMH--Ear/Nose/Throat: Confirms: Cataracts, Farsighted Past Surgical Hx-ENT: Confirms: Cataract Removal-Right, Cataract Removal-Left Hx Neurological Disorder: Yes PMH-Neurological: Confirms: Dementia, Memory Lo (more content not included)... [facility]01-09-2025 Discharge summary Author KHALIF ZAYAS [facility] Note Date/Time October 24, 2024 3: 43pm [facility] [address] [place] [id number] HEALTH INFORMATION MANAGEMENT DISCHARGE SUMMARY : [id number] Signed Patient: WILEY MEEK Acct:[id number] MRUN: [id number] : 1940 Sex: M Loc: ICU AD M Date: 10/22/24 Room/Bed: 354-A DISC Date: - Hospital Course Events Since Admission: WILEY MEEK was admitted to MEDICAL SURGICAL service into room 354 on 10/22/24 at 16:42 from Emergency Dept for complaints of ALTERED MENTAL STATUS ACUTE ON CHRONIC RENAL FAILU. Laboratory and diagnostic testing has been reviewed. The patient was seen, evaluated and found to be appropriate for discharge. Reason For Visit: ALTERED MENTAL STATUS ACUTE ON CHRONIC RENAL FAILU Hospital Course: Mr. Meek an 84-year-old male [facility] confusion change in mental status. Unfortunately patient is a very poor historian and was unsure why he was brought to the emergency room. He does have a history of dementia.patient was admitted due to more confused than his usual baseline. CT brain was negative for acute intracranial pathology. chest x-ray did not show acute cardiopulmonary pathology. UA was negative for UTI. patient was hydrated. on the day of discharge, he states he feels well and would like to be dischargedhome. clinically and vitally stable patient is going to be discharged home Impression/plan: 1. Metabolic encephalopathy dementia patient was admitted due to more confused than his usual baseline patient is oriented in place and himself CT of the brain findings no acute intracranial abnormality. Periventricular white matter changes consistent with chronic microvascular disease. Diffuse volume loss. Chest x-ray findings no change in the massive hiatal hernia located within the left lower chest. Increased moderate linear atelectasis of the left lower lobe and infrahilar region adjacent to the hiatal hernia. UA negative for UTI. Blood Cx shows no growth EKG was regular sinus rhythm with right bundle branch. Troponins were seven, 10 and 11. 2. Acute on chronic renal failure/Dehydration Creatinine 1.84, GFR 35, BUN 28.9. 10/24/2024 creatinine improved to1.46 Patient received 0.9 normal saline 3700 cc in the emergency room repeat CMP within one week after hospital discharge oral hydration encouraged 3. Diabetes, type 2 no concentrated sweet diet check Hb A1c q3 months Hospital Treatment: 10/24/24 05:06 10/24/24 05:06 Laboratory Results - last 24 hr 10/24/24 11:26: POC Glucose (mg/dL) 139 10/24/24 05:06: WBC 5.6, RBC 3.69 L, Hgb 11.8 L, Hct 36.6 L, MCV 99.2 H, MCH 32.0 H, MCHC 32.2 L, RDW 13.6, Plt Count 264, MPV 8.9, Neut % (Auto) 57.8, Lymph% (Auto) 30.4, [place] % (Auto) 8.4, Eos % (Auto) 2.9, Baso % (Auto) 0.5, Abs ImmatGran (man) 0, Absolute Neuts (auto) 3.23, Absolute Lymphs (auto) 1.70, Absolute Monos (auto) 0.50, Absolute Eos (auto) 0.20, Absolute Basos (auto) 0.03, Immature Gran % 0 10/24/24 05:06: Sodium 142, Potassium 4.5, Chloride 107, Total Carbon Dioxide 30, Anion Gap 9.5, BUN 21.2, Creatinine 1.46 H, Est GFR (MDRD) Af Amer 56 A, EstGFR (MDRD) Non-Af 46 A, BUN/Creatinine Ratio 15, Glucose 121 H, Calcium 8.5, Total Bilirubin 0.35, AST 35, ALT 29, Alkaline Phosphatase 43 L, Total Protein 6.2, Albumin 2.8 L, Globulin 3.4, Albumin/Globulin Ratio 0.8 L 10/23/24 22:21: POC Glucose (mg/dL) 141 10/23/24 16:57: POC Glucose (mg/dL) 127 10/22/24 20:15: Folic Acid 12.8 10/22/24 20:15: C-Reactive Protein < 1 10/22/24 15:30: Total Valproic Acid 15 L Intake & Output 10/21/24 10/22/24 10/23/24 10/24/24 23:59 23:59 23:59 23:59 Intake Total 2000 1721 1160 Output Total 800 1250 575 Balance 1200 471 585 Weight 192 lb 3.2 oz 191 lb 14.4 oz 191 lb 8 oz See radiology reports in electronic medical record. - Discharge Information Discharge Diagnosis:: Acute metabolic encephalopathy. Acute on chronic renal failure. Dehydration. Diabetes mellitus type 2. dementia Disposition: 01 HOME / SELF CARE Condition: Good Plan of Treatment: follow-up with the primary care physician in one week to discuss result of CMP repeat CMP in one week, check for renal function test oral hydration encouraged - Discharge Instructions Referrals: MONTRELL EDWARD MD [Primary Care Provider] - Special Instructions: follow-up with your primary care physician in 1 week. repeat CMP in one week after hospital discharge. oral hydration encouraged Activity Level For Discharge:: As Tolerated Discharge Diet: Low Sodium, Nonconcentrated Sweets Weight Bearing Status: Weight Bearing as Tolerated - ASCVD SCORING Was this patient admitted for chest pain?: No Does this patient have a new DX of ASCVD?: No Visit Coding - VISIT CODING Date of Service: 10/24/24 Billing Provider:: KHALIF ZAYAS Common Visit Codes: 26039-WKX/OBS DISCH DAY >30min Electronically Generated By:KHALIF ZAYAS MD Generated Date/Time: 10/24/24 1531 Electronically Signed By: <Electronically signed by KHALIF ZAYAS MD> 10/24/24 1543 Co Signed Electronically By: Co Signed Date/Time: CC: MONTRELL EDWARD MD [facility] Work Phone: 1(752) 702-592701-09-2025 NotePATIENT:WILEY MEEK [id number] LOCATION:ICU I.D.#: [id number] : 1940 AGE: SEX:M DISCHARGED: 10/24/24 ORDERED BY:BRYANNA GAFFNEY MD M I C R O B I O L O G Y Patient: WILEY MEEK [id number] Location: [facility] INT Aount: [id number] : 1940 Age: 84 Sex M Lab NumbEr [id number] Requested by: BRYANNA GAFFNEY Admitdate: 10/22/24 Source: BLOOD Collected: 10/22/24 15:32 Site: [facility] Received : 10/22/24 21:24 OE C O M M E N T S LAB.PORT; Does the Patient have a central line to draw blood from?; N; [email or web address]; Ruben Site; blood Culture, Blood FINAL 10/27/24 10:51 10/24/24 No growth after 48 hours incubation in aerobic and anaerobic bottle. 10/24/2024 06:15 10/27/24 No growth after 5 days incubation in aerobic and anaerobic bottle. 10/27/2024 10:51 [facility]01-09-2025 NotePATIENT:WILEY MEEK [id number] LOCATION:ICU I.D.#: [id number] : 1940 AGE: SEX:M DISCHARGED: 10/24/24 ORDERED BY:BRYANNA GAFFNEY MD M I C R O B I O L O G Y Patient: WILEY MEEK MRJH [id number] Location: [facility] Aount: [id number] : 1940 Age: 84 Sex M Lab NumbEr [id number] Requested by: BRYANNA GAFFNEY Admitdate: 10/22/24 Source: BLOOD Collected: 10/22/24 15:30 Site: [facility]O Received : 10/22/24 21:23 OE C O M M E N T S LAB.PORT; Does the Patient have a central line to draw blood from?; N; [email or web address]; Ruben Site; blood Culture, Blood FINAL 10/27/24 10:51 10/24/24 No growth after 48 hours incubation in aerobic and anaerobic bottle. 10/24/2024 06:15 10/27/24 No growth after 5 days incubation in aerobic and anaerobic bottle. 10/27/2024 10:51 [facility]01-09-[address] [address] HEALTH INFORMATION MANAGEMENT DISCHARGE SUMMARY : [id number] Signed Patient: WILEY MEEK Acct:[id number] MRUN: [id number] : 1940 Sex: M Loc: ICU AD M Date: 10/22/24 Room/Bed: 354-A DISC Date: - Hospital Course Events Since Admission: WILEY MEEK was admitted to MEDICAL SURGICAL service into room 354 on 10/22/24 at 16:42 from Emergency Dept for complaints of ALTERED MENTAL STATUS ACUTE ON CHRONIC RENAL FAILU. Laboratory and diagnostic testing has been reviewed. The patient was seen, evaluated and found to be appropriate for discharge. Reason For Visit: ALTERED MENTAL STATUS ACUTE ON CHRONIC RENAL FAILU Hospital Course: Mr. Meek an 84-year-old [facility] change in mental status. Unfortunately patient is a very poor historian and was unsure why he was brought to the emergency room. He does have a history of dementia.patient was admitted due to more confused than his usual baseline. CT brain was negative for acute intracranial pathology. chest x-ray did not show acute cardiopulmonary pathology. UA was negative for UTI. patient was hydrated. on the day of discharge, he states he feels well and would like to be dischargedhome. clinically and vitally stable patient is going to be discharged home Impression/plan: 1. Metabolic encephalopathy dementia patient was admitted due to more confused than his usual baseline patient is oriented in place and himself CT of the brain findings no acute intracranial abnormality. Periventricular white matter changes consistent with chronic microvascular disease. Diffuse volume loss. Chest x-ray findings no change in the massive hiatal hernia located within the left lower chest. Increased moderate linear atelectasis of the left lower lobe and infrahilar region adjacent to the hiatal hernia. UA negative for UTI. Blood Cx shows no growth EKG was regular sinus rhythm with right bundle branch. Troponins were seven, 10 and 11. 2. Acute on chronic renal failure/Dehydration Creatinine 1.84, GFR 35, BUN 28.9. 10/24/2024 creatinine improved to1.46 Patient received 0.9 normal saline 3700 cc in the emergency room repeat CMP within one week after hospital discharge oral hydration encouraged 3. Diabetes, type 2 no concentrated sweet diet check Hb A1c q3 months Hospital Treatment: 10/24/24 05:06 10/24/24 05:06 Laboratory Results - last 24 hr 10/24/24 11:26: POC Glucose (mg/dL) 139 10/24/24 05:06: WBC 5.6, RBC 3.69 L, Hgb 11.8 L, Hct 36.6 L, MCV 99.2 H, MCH 32.0 H, MCHC 32.2 L, RDW 13.6, Plt Count 264, MPV 8.9, Neut % (Auto) 57.8, Lymph% (Auto) 30.4, [place] % (Auto) 8.4, Eos % (Auto) 2.9, Baso % (Auto) 0.5, Abs ImmatGran (man) 0, Absolute Neuts (auto) 3.23, Absolute Lymphs (auto) 1.70, Absolute Monos (auto) 0.50, Absolute Eos (auto) 0.20, Absolute Basos (auto) 0.03, Immature Gran % 0 10/24/24 05:06: Sodium 142, Potassium 4.5, Chloride 107, Total Carbon Dioxide 30, Anion Gap 9.5, BUN 21.2, Creatinine 1.46 H, Est GFR (MDRD) Af Amer 56 A, EstGFR (MDRD) Non-Af 46 A, BUN/Creatinine Ratio 15, Glucose 121 H, Calcium 8.5, Total Bilirubin 0.35, AST 35, ALT 29, Alkaline Phosphatase 43 L,Total Protein 6.2, Albumin 2.8 L, Globulin 3.4, Albumin/Globulin Ratio 0.8 L 10/23/24 22:21: POC Glucose (mg/dL) 141 10/23/24 16:57: POC Glucose (mg/dL) 127 10/22/24 20:15: Folic Acid 12.8 10/22/24 20:15: C-Reactive Protein < 1 10/22/24 15:30: Total Valproic Acid 15 L Intake & Output 10/21/24 10/22/24 10/23/24 10/24/24 23:59 23:59 23:59 23:59 Intake Total 2000 1721 1160 Output Total 800 1250 575 Balance 1200 471 585 Weight 192 lb 3.2 oz 191 lb 14.4 oz 191 lb 8 oz See radiology reports in electronic medical record. - Discharge Information Discharge Diagnosis:: Acute metabolic encephalopathy. Acute on chronic renal failure. Dehydration. Diabetes mellitus type 2. dementia Disposition: 01 HOME / SELF CARE Condition: Good Plan of Treatment: follow-up with the primary care physician in one week to discuss result of CMP repeat CMP in one week, check for renal function test oral hydration encouraged - Discharge Instructions Referrals: MONTRELL EDWARD MD [Primary Care Provider] - Special Instructions: follow-up with your primary care physician in 1 week. repeat CMP in one week after hospital discharge. oral hydration encouraged Activity Level For Discharge:: As Tolerated Discharge Diet: Low Sodium, Nonconcentrated Sweets Weight Bearing Status: Weight Bearing as Tolerated - ASCVD SCORING Was this patient admitted for chest pain?: No Does this patient have a new DX of ASCVD?: No Visit Coding - VISIT CODING Date of Service: 10/24/24 Billing Provider:: KHALIF ZAYAS Common Visit Codes: 61676-CTW/OBS DISCH DAY >30min Electronically Generated By:KHALIF ZAYAS MD Generated Date/Time: 10/24/24 1531 Electronically Signed By: 10/24/24 1543 Co Signed Electronically By: Co Signed Date/Time: CC: MONTRELL EDWARD MD [facility]01-09-2025 [place] [id number] HEALTH INFORMATION MANAGEMENT DISCHARGE SUMMARY : [id number] Signed Patient: WILEY MEEK Acct:[id number] MRUN: [id number] : 1940 Sex: M Loc: ICU ADM Date: Room/Bed: 354-A DISC Date: - Hospital Course Events Since Admission: WILEY MEEK was admitted to MEDICAL SURGICAL service into room 354 on 10/22/24 at 16:42 from Emergency Dept for complaints of ALTERED MENTAL STATUS ACUTE ON CHRONIC RENAL FAILU. Laboratory and diagnostic testing has been reviewed. The patient was seen, evaluated and found to be appropriate for discharge. Reason For Visit: ALTERED MENTAL STATUS ACUTE ON CHRONIC RENAL FAILU Hospital Course: Mr. Meek an 84-year-old male comes to [facility] from [facility] with complaints of confusion change in mental status. Unfortunately patient is a very poor historian and was unsure why he was brought to the emergency room. He does have a history of dementia.patient was admitted due to more confused than his usual baseline. CT brain was negative for acute intracranial pathology. chest x-ray did not show acute cardiopulmonary pathology. UA was negative for UTI. patient was hydrated. on the day of discharge, he states he feels well and would like to be discharged home. clinically and vitally stable patient is going to be discharged home Impression/plan: 1. Metabolic encephalopathy dementia patient was admitted due to more confused than his usual baseline patient is oriented in place and himself CT of the brain findings no acute intracranial abnormality. Periventricular white matter changes consistent with chronic microvascular disease. Diffuse volume loss. Chest x-ray findings no change in the massive hiatal hernia located within the left lower chest. Increased moderate linear atelectasis of the left lower lobe and infrahilar region adjacent to the hiatal hernia. UA negative for UTI. Blood Cx shows no growth EKG was regular sinus rhythm with right bundle branch. Troponins were seven, 10 and 11. 2. Acute on chronic renal failure/Dehydration Creatinine 1.84, GFR 35, BUN 28.9. 10/24/2024 creatinine improved to1.46 Patient received 0.9 normal saline 3700 cc in the emergency room repeat CMP within one week after hospital discharge oral hydration encouraged 3. Diabetes, type 2 no concentrated sweet diet check Hb A1c q3 months Hospital Treatment: 10/24/24 05:06 10/24/24 05:06 Laboratory Results - last 24 hr 10/24/24 11:26: POC Glucose (mg/dL) 139 10/24/24 05:06: WBC 5.6, RBC 3.69 L, Hgb 11.8 L, Hct 36.6 L, MCV 99.2 H, MCH 32.0 H, MCHC 32.2 L, RDW 13.6, Plt Count 264, MPV 8.9, Neut % (Auto) 57.8, Lymph % (Auto) 30.4, [place] % (Auto) 8.4, Eos % (Auto) 2.9, Baso % (Auto) 0.5, Abs Immat Gran (man) 0, Absolute Neuts (auto) 3.23, Absolute Lymphs (auto) 1.70, Absolute Monos (auto) 0.50, Absolute Eos (auto) 0.20, Absolute Basos (auto) 0.03, Immature Gran % 0 10/24/24 05:06: Sodium 142, Potassium 4.5, Chloride 107, Total Carbon Dioxide 30, Anion Gap 9.5, BUN 21.2, Creatinine 1.46 H, Est GFR (MDRD) Af Amer 56 A, Est GFR (MDRD) Non-Af 46 A, BUN/Creatinine Ratio 15, Glucose 121 H, Calcium 8.5, Total Bilirubin 0.35, AST 35, ALT 29, Alkaline Phosphatase 43 L, Total Protein 6.2, Albumin 2.8 L, Globulin 3.4, Albumin/Globulin Ratio 0.8 L 10/23/24 22:21: POC Glucose (mg/dL) 141 10/23/24 16:57: POC Glucose (mg/dL) 127 10/22/24 20:15: Folic Acid 12.8 10/22/24 20:15: C-Reactive Protein < 1 10/22/24 15:30: Total Valproic Acid 15 L Intake Output 10/21/24 10/22/24 10/23/24 10/24/24 23:59 23:59 23:59 23:59 Intake Total 1999 1721 1160 Output Total 800 1250 575 Balance 1200 471 585 Weight 192 lb 3.2 oz 191 lb 14.4 oz 191 lb 8 oz See radiology reports in electronic medical record. - Discharge Information Discharge Diagnosis:: Acute metabolic encephalopathy. Acute on chronic renal failure. Dehydration. Diabetes mellitus type 2. dementia Disposition: 01 HOME / SELF CARE Condition: Good Plan of Treatment: follow-up with the primary care physician in one week to discuss result of CMP repeat CMP in one week, check for renal function test oral hydration encouraged - Discharge Instructions Referrals: MONTRELL EDWARD MD [Primary Care Provider] - Special Instructions: follow-up with your primary care physician in 1 week. repeat CMP in one week after hospital discharge. oral hydration encouraged Activity Level For Discharge:: As Tolerated Discharge Diet: Low Sodium, Nonconcentrated Sweets Weight Bearing Status: Weight Bearing as Tolerated - ASCVD SCORING Was this patient admitted for chest pain?: No Does this patient have a new DX of ASCVD?: No Vis (more content not included)...[facility]01-08-2025 Discharge summary Author BRYANNA GAFFNEY [facility] Note Date/Time October 23, 2024 6: 30pm [facility] [address] [place] [id number] HEALTH INFORMATION MANAGEMENT EMERGENCY DEPARTMENT : [id number] Signed Patient: WILEY MEEK Acct:[id number] MRUN: [id number] : 1940 Sex: M Loc: ICU AD M Date: 10/22/24 Room/Bed: 354-A DISC Date: History of Present Illness - General Chief Complaint: Altered Mental Status Stated Complaint: CONFUSION Symptom onset: TODAY HPI: PT ARRIVES TO THE ED WITH C/O CONFUSION THAT STARTED TODAY. PT DENIES ANY COMPLAINTS ON ARRIVAL TO ED. PT STATES I GUESS IM HERE TO GET CHECKED OUT. PT FROM [facility] PT HAS INCREASED CONFUSION. Time Seen by Provider: 10/22/24 15:14 Source: Patient, EMS, RN notes reviewed Mode of Transport: [facility] - History of Present Illness Initial Comments: Patient is an 84-year-old male history of dementia, diabetes, chronic kidney disease brought into emergency department for evaluation of worsening confusion. Patient denies any chest pain or abdominal pain. No nausea no vomiting. History was also obtained from EMS staff nursing staff. MD Complaint: Complains of: altered mental status - Related Data Home Medications Medication Instructions Recorded Confirmed Fenofibrate Nanocrystallized 145 mg PO DAILY 12/08/17 10/22/24 [Fenofibrate] Finasteride 5 mg PO DAILY 12/08/17 10/22/24 Aspirin [Aspirin 81 mg Chew Tablet] 81 mg PO DAILY 10/13/20 10/22/24 Donepezil HCl [Aricept 5 mg Tablet] 5 mg PO QPM 10/13/20 10/22/24 Tamsulosin HCl [Flomax 0.4 mg 0.4 mg PO QPM 10/13/20 10/22/24 Capsule] Divalproex Sodium [Depakote] 125 mg PO BID 08/11/21 10/22/24 Loperamide HCl [Loperamide] 2 mg PO Q6H PRN 08/11/21 10/22/24 Acetaminophen [Acetaminophen Extra 500 mg PO BID 06/01/23 10/22/24 Strength] Cimetidine 400 mg PO BID 06/01/23 10/22/24 Dexlansoprazole [Dexilant] 60 mg PO DAILY 06/01/23 10/22/24 Hydralazine HCl 25 mg PO TID 30 Days #90 tablet 06/02/23 10/22/24 Menthol [Biofreeze] 89 ml TP QID PRN 12/22/23 10/22/24 Cholecalciferol (Vitamin D3) 2,000 unit PO DAILY 10/22/24 10/22/24 [Vitamin D3 1000 Unit Tablet] Cyanocobalamin (Vitamin B-12) 500 mcg PO DAILY 10/22/24 10/22/24 [Vitamin B-12 500 Mcg Tablet] Lactobacillus Acidophilus 100 mg PO DAILY 10/22/24 10/22/24 [Acidophilus] Pravastatin Sodium 10 mg PO 10/23/24 Allergies Allergy/AdvReac Type Severity Reaction Status Date / Time morphine Allergy Verified 10/22/24 18:11 Sulfa (Sulfonamide Allergy Verified 10/22/24 18:11 Antibiotics) Review of System - Constitutional Constitutional: Present: Well developed, Well nourished, Non-toxic - Respiratory Respiratory: Present: no symptoms reported. Absent: stridor - All Others/Exceptions Unable To Obtain Complete ROS: AMS ED PMH/Social HX/Family HX - Respiratory Hx Respiratory Disorders: Yes (reviewed ) PMH--Respiratory: Asthma, Bronchitis - Cardiovascular Hx Cardiac Disorders: Yes PMH--Cardiovascular: HTN, Hypercholesterolemia - Neurological Hx Neurological Disorder: Yes PMH--Neurological: Dementia, Memory Loss - Endocrine Hx Endocrine Disorders: Yes PMH--Endocrine History: Diabetes Type 2 - Gastrointestinal Hx Gastrointestinal Disorders: Yes PMH--Gastrointestinal: GERD, Hernia Other GI PMH: heart burn Past Surgical Hx--GI: Appendectomy - Genitourinary Hx Genitourinary Disorders: Yes PMH--Genitourinary: UTI - Musculoskeletal Hx Musculoskeletal Disorders: No PMH--Musculoskeletal: Arthritis - Reproductive Hx Reproductive Disorders: No - Psychological Hx Psychosocial Problems: Yes PMH--Psychological & Treatments: Depression - HEENT Hx Ear, Nose Throat Disorders: Yes PMH--Ears Nose and Throat: Cataracts, Farsighted Past Surgical Hx-ENT: Cataract Removal-Right, Cataract Removal-Left - Cancer Hx Cancer: No - Other Other PMH: Chicken Pox, Measles, Mumps - Social History Highest Educational Level: High School Able to Read: Yes Able to Write: Yes Smoking Status: Never Smoked Hx Chewing Tobacco Use: No Alcohol Use: Never Any recreational drug use reported?: No Hx Substance Use Treatment: No Feels Threatened In Home Environment: No Feels Threatened In a Relationship: No - Family PMH Father Living Status: Cardiac: Cardiac Disorder(s), Myocardial Infarction Mother Living Status: Cancer History: Breast Cancer - Sweet/Gender ID What is your current Gender Identity? Choose all that Apply: Male Define your Sexual Orientation?: Straight/Heterosexual - Crane-Suicide Severity Rating Scale 1) Wish to be :: No 2) Suicidal Thoughts:: No 6) Suicidal Behavior Question (A): LIFETIME: No 6) Suicidal Behavior Question (B): PAST 3 MONTHS: No General Exam - General Constitutional: Present: Well developed, Well nourished, Non-toxic - Head Head exam: Present: atraumatic, normocephalic - Eye Eye exam: Present: EOMI. Absent: scleral icterus, conjunctival injection Pupils: Present: PERRL - ENT ENT exam: Present: mucous membranes dry - Neck Neck exam: Present: full ROM, Supple. Absent: meningismus - Respiratory Respiratory exam: Absent: respiratory distress, stridor - Cardiovascular Cardiovascular Exam: Present: regular rate, normal rhythm - GI/Abdominal GI/Abdominal exam: Present: soft, non tender - Extremities Exam Extremities exam: Present: neurovascularly intact, full ROM, normal muscle strength - Back Exam Back exam: Present: normal inspection - Neurological Exam Neurological exam: Present: alert, other (Patient is awake, alert, answering questions appropriately. Following commands. No slurring of speech, no facial droop. Normal gaze. No focal sensory or motor deficits noted in bilateral upper lower extremities.) - Skin Skin Color: Present: Normal Skin exam: Present: warm - Vital Signs Vital Signs 10/22/24 10/22/24 10/22/24 15:14 15:30 15:40 Temperature 97.7 F Pulse Rate 96 98 Pulse Rate [ 97 Pulse Ox] Respiratory 20 Rate Blood Pressure Blood Pressure 115/83 [Right Arm Sitting] O2 Sat by Pulse 97 97 98 Oximetry(%) 10/22/24 10/22/24 10/22/24 15:50 16:11 16:20 Temperature Pulse Rate 96 95 95 Pulse Rate [ Pulse Ox] Respiratory Rate Blood Pressure Blood Pressure [Right Arm Sitting] O2 Sat by Pulse 96 96 98 Oximetry(%) 10/22/24 10/22/24 10/22/24 16:30 16:40 16:50 Temperature Pulse Rate 97 82 70 Pulse Rate [ Pulse Ox] Respiratory Rate Blood Pressure Blood Pressure [Right Arm Sitting] O2 Sat by Pulse 97 76 L 82 L Oximetry(%) 10/22/24 10/22/24 10/22/24 17:00 17:10 17:20 Temperature Pulse Rate 94 89 81 Pulse Rate [ Pulse Ox] Respiratory Rate Blood Pressure 142/101 H Blood Pressure [Right Arm Sitting] O2 Sat by Pulse 96 96 89 L Oximetry(%) 10/22/24 17:30 Temperature Pulse Rate 48 L Pulse Rate [ Pulse Ox] Respiratory Rate Blood Pressure Blood Pressure [Right Arm Sitting] O2 Sat by Pulse 88 L Oximetry(%) ED AMS MDM - Lab Data Result diagrams: 10/23/24 04:36 10/23/24 04:36 Lab Results 10/22/24 10/22/24 10/22/24 Range/Units 15:30 15:30 15:30 WBC 6.7 (3.6-10.8) K/uL RBC 3.93 L (4.13-5.69) M/uL Hgb 12.4 (12.4-17.3) g/dL Hct 38.6 (36.7-50.6) % MCV 98.2 H (80.0-94.0) fL MCH 31.6 H (27.0-31.0) pg MCHC 32.1 L (33.0-37.0) g/dL RDW 13.5 (11.5-14.5) % Plt Count 296 (148-402) K/uL MPV 9.0 (7.4-10.4) fL Neut % (Auto) 59.3 (43.0-65.0) % Lymph % (Auto) 31.1 (17.0-45.5) % [place] % (Auto) 7.2 (5.5-11.7) % Eos % (Auto) 1.7 (0.9-2.9) % Baso % (Auto) 0.5 (0.2-1.0) % Abs Immat Gran (man) 0.01 (0.00-0.10) K/uL Absolute Neuts (auto) 3.96 (2.20-4.80) K/uL Absolute Lymphs (auto) 2.10 (1.30-2.90) K/uL Absolute Monos (auto) 0.50 (0.30-0.80) K/uL Absolute Eos (auto) 0.10 (0.00-0.20) K/uL Absolute Basos (auto) 0.03 (0.00-0.10) K/uL Immature Gran % 0.20 (0.00-1.00) % PT 10.7 (8.9-12.2) sec INR 1.0 ratio APTT 23.2 (19.5-32.1) sec Fibrinogen 234 (178-460) mg/dL Sodium 142 (132-145) mmol/L Potassium 4.6 (3.3-5.1) mmol/L Chloride 106 (94-110) mmol/L Total Carbon Dioxide 29 (21-34) mmol/L Anion Gap 11.6 (8.0-16.0) mmol/L BUN 28.9 H (3.2-26.9) mg/dL Creatinine 1.84 H (0.50-1.17) mg/dL Est GFR (MDRD) Af Amer 43 A (>60) Est GFR (MDRD) Non-Af 35 A (>60) BUN/Creatinine Ratio 16 (6-20) Glucose 166 H (65-100) mg/dL Plasma Lactic Acid Memo (0.4-2.0) mmol/L Calcium 8.5 (8.2-10.0) mg/dL Total Bilirubin 0.41 (0.00-0.99) mg/dL AST 32 (3-39) U/L ALT 30 (13-66) U/L Alkaline Phosphatase 46 L (54-112) U/L Troponin I High Sens 7 (0-76) ng/L Total Protein 6.5 (6.1-8.2) g/dL Albumin 3.1 L (3.4-5.0) g/dL Globulin 3.4 (1.5-4.5) g/dL Albumin/Globulin Ratio 0.9 L (1.1-2.5) Urine Color (Yellow) Urine Appearance (Clear) Urine pH Ur Specific [place] (1.015-1.025) Urine Protein (Negative) Urine Ketones (Negative) Urine Blood (Negative) Urine Nitrite (Negative) Urine Bilirubin (Negative) Urine Urobilinogen (Normal-1.0) mg/dL Ur Leukocyte Esterase (Negative) Urine Glucose (Negative) 10/22/24 10/22/24 Range/Units 15:30 16:12 WBC (3.6-10.8) K/uL RBC (4.13-5.69) M/uL Hgb (12.4-17.3) g/dL Hct (36.7-50.6) % MCV (80.0-94.0) fL MCH (27.0-31.0) pg MCHC (33.0-37.0) g/dL RDW (11.5-14.5) % Plt Count (148-402) K/uL MPV (7.4-10.4) fL Neut % (Auto) (43.0-65.0) % Lymph % (Auto) (17.0-45.5) % [place] % (Auto) (5.5-11.7) % Eos % (Auto) (0.9-2.9) % Baso % (Auto) (0.2-1.0) % Abs Immat Gran (man) (0.00-0.10) K/uL Absolute Neuts (auto) (2.20-4.80) K/uL Absolute Lymphs (auto) (1.30-2.90) K/uL Absolute Monos (auto) (0.30-0.80) K/uL Absolute Eos (auto) (0.00-0.20) K/uL Absolute Basos (auto) (0.00-0.10) K/uL Immature Gran % (0.00-1.00) % PT (8.9-12.2) sec INR ratio APTT (19.5-32.1) sec Fibrinogen (178-460) mg/dL Sodium (132-145) mmol/L Potassium (3.3-5.1) mmol/L Chloride (94-110) mmol/L Total Carbon Dioxide (21-34) mmol/L Anion Gap (8.0-16.0) mmol/L BUN (3.2-26.9) mg/dL Creatinine (0.50-1.17) mg/dL Est GFR (MDRD) Af Amer (>60) Est GFR (MDRD) Non-Af (>60) BUN/Creatinine Ratio (6-20) Glucose (65-100) mg/dL Plasma Lactic Acid Memo 1.6 (0.4-2.0) mmol/L Calcium (8.2-10.0) mg/dL Total Bilirubin (0.00-0.99) mg/dL AST (3-39) U/L ALT (13-66) U/L Alkaline Phosphatase (54-112) U/L Troponin I High Sens (0-76) ng/L Total Protein (6.1-8.2) g/dL Albumin (3.4-5.0) g/dL Globulin (1.5-4.5) g/dL Albumin/Globulin Ratio (1.1-2.5) Urine Color yellow (Yellow) Urine Appearance Clear (Clear) Urine pH 5 Ur Specific [place] 1.020 (1.015-1.025) Urine Protein Negative (Negative) Urine Ketones Negative (Negative) Urine Blood Negative (Negative) Urine Nitrite Negative (Negative) Urine Bilirubin Negative (Negative) Urine Urobilinogen Normal (Normal-1.0) mg/dL Ur Leukocyte Esterase Negative (Negative) Urine Glucose Normal (Negative) Orders: Medications Aspirin (Aspirin 81 Mg Chew Tablet) 81 mg PO DAILY [facility] Stop: 11/23/24 09:01 Last Admin: 10/23/24 08:52 Dose: 81 mg Documented by: CHELE Atorvastatin Calcium (Atorvastatin Calcium 40 Mg Tablet) 80 mg PO QHS [facility] Stop: 11/22/24 22:01 Last Admin: 10/22/24 21:13 Dose: 80 mg Documented by: [email or web address] Divalproex Sodium (Divalproex Sodium 125 Mg Sprinkle Capsule) 125 mg PO BID [facility] Stop: 11/22/24 20:01 Last Admin: 10/23/24 08:52 Dose: 125 mg Documented by: CHELE Enoxaparin Sodium (Enoxaparin Sodium 40 Mg/0.4 Ml Injection) 40 mg SQ Q24H [facility];Protocol Stop: 11/22/24 18:01 Last Admin: 10/23/24 17:46 Dose: 40 mg Documented by: CHELE Cosigned by: [email or web address] Fenofibrate (Fenofibrate 145 Mg Tablet) 145 mg PO DAILY [facility] Stop: 11/23/24 09:01 Last Admin: 10/23/24 08:52 Dose: 145 mg Documented by: CHELE Finasteride (Finasteride 5 Mg Tablet) 5 mg PO DAILY [facility] Stop: 11/23/24 09:01 Last Admin: 10/23/24 08:52 Dose: 5 mg Documented by: CHELE Hydralazine HCl (Hydralazine Hcl 25 Mg Tablet) 25 mg PO TID [facility] Stop: 11/22/24 22:01 Last Admin: 10/23/24 14:15 Dose: 25 mg Documented by: CHELE Insulin Glargine (Insulin Glargine,Hum.Rec.Anlog 100 Unit/1 Ml) 10 unit SQ DAILY [facility] Stop: 11/22/24 18:01 Last Admin: 10/23/24 08:48 Dose: Not Given Documented by: CHELE Non-Admin Reason: Held by Nurse Comments: glucose 108, not on insulin at home Insulin Human Lispro (Insulin Lispro 100 Unit/Ml Insulin Pen) 0 unit SQ ACHS [facility] Stop: 11/22/24 22:01 Last Admin: 10/23/24 16:50 Dose: Not Given Documented by: CHELE Non-Admin Reason: Meets Criteria to Hold Pantoprazole Sodium (Pantoprazole Sodium 40 Mg Tablet) 40 mg PO PROTONIX-ACBK [facility] Stop: 11/23/24 06:01 Last Admin: 10/23/24 06:10 Dose: 40 mg Documented by: [email or web address] Tamsulosin HCl (Tamsulosin Hcl 0.4 Mg Capsule) 0.4 mg PO QPM [facility] Stop: 11/22/24 18:01 Last Admin: 10/23/24 17:46 Dose: 0.4 mg Documented by: [email or web address] Discontinued Medications Ceftriaxone Sodium 2 gm/ (Sodium Chloride) 100 mls @ 100 mls/hr IVPB STAT STA Stop: 10/22/24 16:17 Last Infusion: 10/22/24 16:28 Dose: 100 mls/hr, 100 mls/hr Documented by: [email or web address] Sodium Chloride (Sodium Chloride 0.9 % 1000 Ml) 2,700 mls @ 900 mls/hr 30 ml/kginfuse over 3 hr (2700 ml) IV .Q3H PRN PRN Reason: INTRAVENOUS Stop: 11/22/24 15:23 Last Infusion: 10/22/24 16:27 Dose: 900 mls/hr Documented by: [email or web address] Sodium Chloride (Sodium Chloride 0.9 % 1000 Ml) 1,000 mls @ 999 mls/hr IV .Q1H1M STA Stop: 10/22/24 17:23 Last Infusion: 10/22/24 17:51 Dose: 0 mls/hr Documented by: [email or web address] - Radiology Data IMPRESSIONS Electrocardiogram 10/22/24 15:13 [facility] ED Test Date: 2024-10-22 Test Time: 15:20:28 [facility]: ED Room: 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 No change in the massive hiatal hernia located within the left lower chest. 2. Increased moderate linear atelectasis of the left lower lobe and infrahilar region adjacent to the hiatal hernia. Brain CT 10/22/24 15:18 IMPRESSION: 1. No acute intracranial abnormality. 2. Periventricular white matter changes consistent with chronic microvascular disease. 3. Diffuse volume loss. - Medical Decision Making ED Course: [ Patient is an 84-year-old male history of dementia, diabetes, chronic kidney disease brought into emergency department for evaluation of worsening confusion. Patient denies any chest pain or abdominal pain. No nausea no vomiting. History was also obtained from EMS staff nursing staff.] Prior external records reviewed: Outpatient records The patient has received a medical screening examination: within reasonable clinical confidence has been stabilized in the ED. Reviewed pertinent findings from resulted labs: [ yes] Imaging and EKG: Interpretation by radiology. [ yes] [ EKG interpreted by myself and discussed with patient. Full EKG read found on [employer]Server ] Presenting clinical condition necessitates admission or observation consideration: [ Yes ] Independent Hx provided by: [ Patient/EMS/RN ] Med Rx considered but ultimately not given: [ none ] Dx tests considered but ultimately not ordered: [ none ] Social determinant that may affects healthcare: [ none ] Pt?s case/impression summarized and discussed with: [ Patient/Hospitalist ] Likely Dx given clinical picture: [Altered mental status, acute on chronic kidney failure. ] Although not an exhaustive list of Differential Diagnosis (though considered), patient?s HPI, PE, and other findings are not suggestive of: [ Sepsis] [ Patient at the time of disposition was stable however in serious and/or critical condition from their presenting complaint thus requiring admission. CT scan of the brain revealed no acute intracranial hemorrhage. No acute findings per radiology report. Chest x-ray revealed left lower lobe atelectasis. Lab results revealed elevated creatinine level. He appears to have acute on chronic renal failure. His baseline creatinine is around 1.4. And today his creatinine level is 1.84. Patient would benefit from admission to hospital for further evaluation and management. Subsequently have spoken with hospitalist on-call , and she agreed to admit the patient. The patient and/or family was given the opportunity to ask questions prior to admission, understood my verbal discussion of the plans for treatment, expected course, and the need for timely follow up as directed. ] Condition: Stable Disposition: [ Admit ] This document has been created using voice recognition software and may contain grammatical and typographical errors. ED Discharge Summary - Discharge Data Clinical Impression: Altered mental status, Acute on chronic renal failure Condition: Good Disposition: ADMITTED INPATIENT Home Medications: Ambulatory Orders Medication Instructions Recorded Fenofibrate Nanocrystallized 145 mg PO DAILY 12/08/17 [Fenofibrate] Finasteride 5 mg PO DAILY 12/08/17 Aspirin [Aspirin 81 mg Chew Tablet] 81 mg PO DAILY 10/13/20 Donepezil HCl [Aricept 5 mg Tablet] 5 mg PO QPM 10/13/20 Tamsulosin HCl [Flomax 0.4 mg 0.4 mg PO QPM 10/13/20 Capsule] Divalproex Sodium [Depakote] 125 mg PO BID 08/11/21 Loperamide HCl [Loperamide] 2 mg PO Q6H PRN 08/11/21 Acetaminophen [Acetaminophen Extra 500 mg PO BID 06/01/23 Strength] Cimetidine 400 mg PO BID 06/01/23 Dexlansoprazole [Dexilant] 60 mg PO DAILY 06/01/23 Hydralazine HCl 25 mg PO TID 30 Days #90 tablet 06/02/23 Menthol [Biofreeze] 89 ml TP QID PRN 12/22/23 Cholecalciferol (Vitamin D3) 2,000 unit PO DAILY 10/22/24 [Vitamin D3 1000 Unit Tablet] Cyanocobalamin (Vitamin B-12) 500 mcg PO DAILY 10/22/24 [Vitamin B-12 500 Mcg Tablet] Lactobacillus Acidophilus 100 mg PO DAILY 10/22/24 [Acidophilus] Pravastatin Sodium 10 mg PO 10/23/24 Time Seen by Provider: 10/22/24 15:14 Electronically Generated By:BRYANNA GAFFNEY MD Generated Date/Time: 10/22/24 1624 Electronically Signed By: <Electronically signed by BRYANNA GAFFNEY MD> 10/23/24 1830 Co Signed Electronically By: Co Signed Date/Time: CC: MONTRELL EDWARD MD [facility] Work Phone: [phone]) 162-803501-08-[address] [address] HEALTH INFORMATION MANAGEMENT EMERGENCY DEPARTMENT : [id number] Signed Patient: WILEY MEEK Acct:[id number] MRUN: [id number] : 1940 Sex: M Loc: ICU AD M Date: 10/22/24 Room/Bed: 354-A DISC Date: History of Present Illness - General Chief Complaint: Altered Mental Status Stated Complaint: CONFUSION Symptom onset: TODAY HPI: PT ARRIVES TO THE ED WITH C/O CONFUSION THAT STARTED TODAY. PT DENIES ANY COMPLAINTS ON ARRIVAL TO ED. PT STATES I GUESS IM HERE TO GET CHECKED OUT. PT FROM [facility] PT HAS INCREASED CONFUSION. Time Seen by Provider: 10/22/24 15:14 Source: Patient, EMS, RN notes reviewed Mode of Transport: Squad-[facility] - History of Present Illness Initial Comments: Patient is an 84-year-old male history of dementia, diabetes, chronic kidney disease brought into emergency department for evaluation of worsening confusion. Patient denies any chest pain or abdominal pain. No nausea no vomiting. History was also obtained from EMS staff nursing staff. MD Complaint: Complains of: altered mental status - Related Data Home Medications Medication Instructions Recorded Confirmed Fenofibrate Nanocrystallized 145 mg PO DAILY 12/08/17 10/22/24 [Fenofibrate] Finasteride 5 mg PO DAILY 12/08/17 10/22/24 Aspirin [Aspirin 81 mg Chew Tablet] 81 mg PO DAILY 10/13/20 10/22/24 Donepezil HCl [Aricept 5 mg Tablet] 5 mg PO QPM 10/13/20 10/22/24 Tamsulosin HCl [Flomax 0.4 mg 0.4 mg PO QPM 10/13/20 10/22/24 Capsule] Divalproex Sodium [Depakote] 125 mg PO BID 08/11/21 10/22/24 Loperamide HCl [Loperamide] 2 mg PO Q6H PRN 08/11/21 10/22/24 Acetaminophen [Acetaminophen Extra 500 mg PO BID 06/01/23 10/22/24 Strength] Cimetidine 400 mg PO BID 06/01/23 10/22/24 Dexlansoprazole [Dexilant] 60 mg PO DAILY 06/01/23 10/22/24 Hydralazine HCl 25 mg PO TID 30 Days #90 tablet 06/02/23 10/22/24 Menthol [Biofreeze] 89 ml TP QID PRN 12/22/23 10/22/24 Cholecalciferol (Vitamin D3) 2,000 unit PO DAILY 10/22/24 10/22/24 [Vitamin D3 1000 Unit Tablet] Cyanocobalamin (Vitamin B-12) 500 mcg PO DAILY 10/22/24 10/22/24 [Vitamin B-12 500 Mcg Tablet] Lactobacillus Acidophilus 100 mg PO DAILY 10/22/24 10/22/24 [Acidophilus] Pravastatin Sodium 10 mg PO 10/23/24 Allergies Allergy/AdvReac Type Severity Reaction Status Date / Time morphine Allergy Verified 10/22/24 18:11 Sulfa (Sulfonamide Allergy Verified 10/22/24 18:11 Antibiotics) Review of System - Constitutional Constitutional: Present: Well developed, Well nourished, Non-toxic - Respiratory Respiratory: Present: no symptoms reported. Absent: stridor - All Others/Exceptions Unable To Obtain Complete ROS: AMS ED PMH/Social HX/Family HX - Respiratory Hx Respiratory Disorders: Yes (reviewed ) PMH--Respiratory: Asthma, Bronchitis - Cardiovascular Hx Cardiac Disorders: Yes PMH--Cardiovascular: HTN, Hypercholesterolemia - Neurological Hx Neurological Disorder: Yes PMH--Neurological: Dementia, Memory Loss - Endocrine Hx Endocrine Disorders: Yes PMH--Endocrine History: Diabetes Type 2 - Gastrointestinal Hx Gastrointestinal Disorders: Yes PMH--Gastrointestinal: GERD, Hernia Other GI PMH: heart burn Past Surgical Hx--GI: Appendectomy - Genitourinary Hx Genitourinary Disorders: Yes PMH--Genitourinary: UTI - Musculoskeletal Hx Musculoskeletal Disorders: No PMH--Musculoskeletal: Arthritis - Reproductive Hx Reproductive Disorders: No - Psychological Hx Psychosocial Problems: Yes PMH--Psychological & Treatments: Depression - HEENT Hx Ear, Nose Throat Disorders: Yes PMH--Ears Nose and Throat: Cataracts, Farsighted Past Surgical Hx-ENT: Cataract Removal-Right, Cataract Removal-Left - Cancer Hx Cancer: No - Other Other PMH: Chicken Pox, Measles, Mumps - Social History Highest Educational Level: High School Able to Read: Yes Able to Write: Yes Smoking Status: Never Smoked Hx Chewing Tobacco Use: No Alcohol Use: Never Any recreational drug use reported?: No Hx Substance Use Treatment: No Feels Threatened In Home Environment: No Feels Threatened In a Relationship: No - Family PMH Father Living Status: Cardiac: Cardiac Disorder(s), Myocardial Infarction Mother Living Status: Cancer History: Breast Cancer - Sweet/Gender ID What is your current Gender Identity? Choose all that Apply: Male Define your Sexual Orientation?: Straight/Heterosexual - Crane-Suicide Severity Rating Scale 1) Wish to be :: No 2) Suicidal Thoughts:: No 6) Suicidal Behavior Question (A): LIFETIME: No 6) Suicidal Behavior Question (B): PAST 3 MONTHS: No General Exam - General Constitutional: Present: Well developed, Well nourished, Non-toxic - Head Head exam: Present: atraumatic, normocephalic - Eye Eye exam: Present: EOMI. Absent: scleral icterus, conjunctival injection Pupils: Present: PERRL - ENT ENT exam: Present: mucous membranes dry - Neck Neck exam: Present: full ROM, Supple. Absent: meningismus - Respiratory Respiratory exam: Absent: respiratory distress, stridor - Cardiovascular Cardiovascular Exam: Present: regular rate, normal rhythm - GI/Abdominal GI/Abdominal exam: Present: soft, non tender - Extremities Exam Extremities exam: Present: neurovascularly intact, full ROM, normal muscle strength - Back Exam Back exam: Present: normal inspection - Neurological Exam Neurological exam: Present: alert, other (Patient is awake, alert, answering questions appropriately. Following commands. No slurring of speech, no facial droop. Normal gaze. No focal sensory or motor deficits noted in bilateral upper lower extremities.) - Skin Skin Color: Present: Normal Skin exam: Present: warm - Vital Signs Vital Signs 10/22/24 10/22/24 10/22/24 15:14 15:30 15:40 Temperature 97.7 F Pulse Rate 96 98 Pulse Rate [ 97 Pulse Ox] Respiratory 20 Rate Blood Pressure Blood Pressure 115/83 [Right Arm Sitting] O2 Sat by Pulse 97 97 98 Oximetry(%) 10/22/24 10/22/24 10/22/24 15:50 16:11 16:20 Temperature Pulse Rate 96 95 95 Pulse Rate [ Pulse Ox] Respiratory Rate Blood Pressure Blood Pressure [Right Arm Sitting] O2 Sat by Pulse 96 96 98 Oximetry(%) 10/22/24 10/22/24 10/22/24 16:30 16:40 16:50 Temperature Pulse Rate 97 82 70 Pulse Rate [ Pulse Ox] Respiratory Rate Blood Pressure Blood Pressure [Right Arm Sitting] O2 Sat by Pulse 97 76 L 82 L Oximetry(%) 10/22/24 10/22/24 10/22/24 17:00 17:10 17:20 Temperature Pulse Rate 94 89 81 Pulse Rate [ Pulse Ox] Respiratory Rate Blood Pressure 142/101 H Blood Pressure [Right Arm Sitting] O2 Sat by Pulse 96 96 89 L Oximetry(%) 10/22/24 17:30 Temperature Pulse Rate 48 L Pulse Rate [ Pulse Ox] Respiratory Rate Blood Pressure Blood Pressure [Right Arm Sitting] O2 Sat by Pulse 88 L Oximetry(%) ED AMS MDM - Lab Data Result diagrams: 10/23/24 04:36 10/23/24 04:36 Lab Results 10/22/24 10/22/24 10/22/24 Range/Units 15:30 15:30 15:30 WBC 6.7 (3.6-10.8) K/uL RBC 3.93 L (4.13-5.69) M/uL Hgb 12.4 (12.4-17.3) g/dL Hct 38.6 (36.7-50.6) % MCV 98.2 H (80.0-94.0) fL MCH 31.6 H (27.0-31.0) pg MCHC 32.1 L (33.0-37.0) g/dL RDW 13.5 (11.5-14.5) % Plt Count 296 (148-402) K/uL MPV 9.0 (7.4-10.4) fL Neut % (Auto) 59.3 (43.0-65.0) % Lymph % (Auto) 31.1 (17.0-45.5) % Lar[place]ie % (Auto) 7.2 (5.5-11.7) % Eos % (Auto) 1.7 (0.9-2.9) % Baso % (Auto) 0.5 (0.2-1.0) % Abs Immat Gran (man) 0.01 (0.00-0.10) K/uL Absolute Neuts (auto) 3.96 (2.20-4.80) K/uL Absolute Lymphs (auto) 2.10 (1.30-2.90) K/uL Absolute Monos (auto) 0.50 (0.30-0.80) K/uL Absolute Eos (auto) 0.10 (0.00-0.20) K/uL Absolute Basos (auto) 0.03 (0.00-0.10) K/uL Immature Gran % 0.20 (0.00-1.00) % PT 10.7 (8.9-12.2) sec INR 1.0 ratio APTT 23.2 (19.5-32.1) sec Fibrinogen 234 (178-460) mg/dL Sodium 142 (132-145) mmol/L Potassium 4.6 (3.3-5.1) mmol/L Chloride 106 (94-110) mmol/L Total Carbon Dioxide 29 (21-34) mmol/L Anion Gap 11.6 (8.0-16.0) mmol/L BUN 28.9 H (3.2-26.9) mg/dL Creatinine 1.84 H (0.50-1.17) mg/dL Est GFR (MDRD) Af Amer 43 A (>60) Est GFR (MDRD) Non-Af 35 A (>60) BUN/Creatinine Ratio 16 (6-20) Glucose 166 H (65-100) mg/dL Plasma Lactic Acid Memo (0.4-2.0) mmol/L Calcium 8.5 (8.2-10.0) mg/dL Total Bilirubin 0.41 (0.00-0.99) mg/dL AST 32 (3-39) U/L ALT 30 (13-66) U/L Alkaline Phosphatase 46 L (54-112) U/L Troponin I High Sens 7 (0-76) ng/L Total Protein 6.5 (6.1-8.2) g/dL Albumin 3.1 L (3.4-5.0) g/dL Globulin 3.4 (1.5-4.5) g/dL Albumin/Globulin Ratio 0.9 L (1.1-2.5) Urine Color (Yellow) Urine Appearance (Clear) Urine pH Ur Specific Larimore (1.015-1.025) Urine Protein (Negative) Urine Ketones (Negative) Urine Blood (Negative) Urine Nitrite (Negative) Urine Bilirubin (Negative) Urine Urobilinogen (Normal-1.0) mg/dL Ur Leukocyte Esterase (Negative) Urine Glucose (Negative) 10/22/24 10/22/24 Range/Units 15:30 16:12 WBC (3.6-10.8) K/uL RBC (4.13-5.69) M/uL Hgb (12.4-17.3) g/dL Hct (36.7-50.6) % MCV (80.0-94.0) fL MCH (27.0-31.0) pg MCHC (33.0-37.0) g/dL RDW (11.5-14.5) % Plt Count (148-402) K/uL MPV (7.4-10.4) fL Neut % (Auto) (43.0-65.0) % Lymph % (Auto) (17.0-45.5) % Laramie % (Auto) (5.5-11.7) % Eos % (Auto) (0.9-2.9) % Baso % (Auto) (0.2-1.0) % Abs Immat Gran (man) (0.00-0.10) K/uL Absolute Neuts (auto) (2.20-4.80) K/uL Absolute Lymphs (auto) (1.30-2.90) K/uL Absolute Monos (auto) (0.30-0.80) K/uL Absolute Eos (auto) (0.00-0.20) K/uL Absolute Basos (auto) (0.00-0.10) K/uL Immature Gran % (0.00-1.00) % PT (8.9-12.2) sec INR ratio APTT (19.5-32.1) sec Fibrinogen (178-460) mg/dL Sodium (132-145) mmol/L Potassium (3.3-5.1) mmol/L Chloride (94-110) mmol/L Total Carbon Dioxide (21-34) mmol/L Anion Gap (8.0-16.0) mmol/L BUN (3.2-26.9) mg/dL Creatinine (0.50-1.17) mg/dL Est GFR (MDRD) Af Amer (>60) Est GFR (MDRD) Non-Af (>60) BUN/Creatinine Ratio (6-20) Glucose (65-100) mg/dL Plasma Lactic Acid Memo 1.6 (0.4-2.0) mmol/L Calcium (8.2-10.0) mg/dL Total Bilirubin (0.00-0.99) mg/dL AST (3-39) U/L ALT (13-66) U/L Alkaline Phosphatase (54-112) U/L Troponin I High Sens (0-76) ng/L Total Protein (6.1-8.2) g/dL Albumin (3.4-5.0) g/dL Globulin (1.5-4.5) g/dL Albumin/Globulin Ratio (1.1-2.5) Urine Color yellow (Yellow) Urine Appearance Clear (Clear) Urine pH 5 Ur Specific Larimore 1.020 (1.015-1.025) Urine Protein Negative (Negative) Urine Ketones Negative (Negative) Urine Blood Negative (Negative) Urine Nitrite Negative (Negative) Urine Bilirubin Negative (Negative) Urine Urobilinogen Normal (Normal-1.0) mg/dL Ur Leukocyte Esterase Negative (Negative) Urine Glucose Normal (Negative) Orders: Medications Aspirin (Aspirin 81 Mg Chew Tablet) 81 mg PO DAILY [facility] Stop: 11/23/24 09:01 Last Admin: 10/23/24 08:52 Dose: 81 mg Documented by: [email or web address] Atorvastatin Calcium (Atorvastatin Calcium 40 Mg Tablet) 80 mg PO QHS [facility] Stop: 11/22/24 22:01 Last Admin: 10/22/24 21:13 Dose: 80 mg Documented by: [email or web address] Divalproex Sodium (Divalproex Sodium 125 Mg Sprinkle Capsule) 125 mg PO BID [facility] Stop: 11/22/24 20:01 Last Admin: 10/23/24 08:52 Dose: 125 mg Documented by: [email or web address] Enoxaparin Sodium (Enoxaparin Sodium 40 Mg/0.4 Ml Injection) 40 mg SQ Q24H [facility];Protocol Stop: 11/22/24 18:01 Last Admin: 10/23/24 17:46 Dose: 40 mg Documented by: [email or web address] Cosigned by: [email or web address] Fenofibrate (Fenofibrate 145 Mg Tablet) 145 mg PO DAILY [facility] Stop: 11/23/24 09:01 Last Admin: 10/23/24 08:52 Dose: 145 mg Documented by: CHELE Finasteride (Finasteride 5 Mg Tablet) 5 mg PO DAILY [facility] Stop: 11/23/24 09:01 Last Admin: 10/23/24 08:52 Dose: 5 mg Documented by: CHELE Hydralazine HCl (Hydralazine Hcl 25 Mg Tablet) 25 mg PO TID [facility] Stop: 11/22/24 22:01 Last Admin: 10/23/24 14:15 Dose: 25 mg Documented by: CHELE Insulin Glargine (Insulin Glargine,Hum.Rec.Anlog 100 Unit/1 Ml) 10 unit SQ DAILY [facility] Stop: 11/22/24 18:01 Last Admin: 10/23/24 08:48 Dose: Not Given Documented by: CHELE Non-Admin Reason: Held by Nurse Comments: glucose 108, not on insulin at home Insulin Human Lispro (Insulin Lispro 100 Unit/Ml Insulin Pen) 0 unit SQ ACHS [facility] Stop: 11/22/24 22:01 Last Admin: 10/23/24 16:50 Dose: Not Given Documented by: CHELE Non-Admin Reason: Meets Criteria to Hold Pantoprazole Sodium (Pantoprazole Sodium 40 Mg Tablet) 40 mg PO PROTONIX-ACBK [facility] Stop: 11/23/24 06:01 Last Admin: 10/23/24 06:10 Dose: 40 mg Documented by: [email or web address] Tamsulosin HCl (Tamsulosin Hcl 0.4 Mg Capsule) 0.4 mg PO QPM [facility] Stop: 11/22/24 18:01 Last Admin: 10/23/24 17:46 Dose: 0.4 mg Documented by: CHELE Discontinued Medications Ceftriaxone Sodium 2 gm/ (Sodium Chloride) 100 mls @ 100 mls/hr IVPB STAT STA Stop: 10/22/24 16:17 Last Infusion: 10/22/24 16:28 Dose: 100 mls/hr, 100 mls/hr Documented by: [email or web address] Sodium Chloride (Sodium Chloride 0.9 % 1000 Ml) 2,700 mls @ 900 mls/hr 30 ml/kginfuse over 3 hr (2700 ml) IV .Q3H PRN PRN Reason: INTRAVENOUS Stop: 11/22/24 15:23 Last Infusion: 10/22/24 16:27 Dose: 900 mls/hr Documented by: [email or web address] Sodium Chloride (Sodium Chloride 0.9 % 1000 Ml) 1,000 mls @ 999 mls/hr IV .Q1H1M STA Stop: 10/22/24 17:23 Last Infusion: 10/22/24 17:51 Dose: 0 mls/hr Documented by: [email or web address] - Radiology Data IMPRESSIONS Electrocardiogram 10/22/24 15:13 [facility] ED Test Date: 2024-10-22 Test Time: 15:20:28 Pat Name: WILEY MEEK Department: ED Room: Gender: Male 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 No change in the massive hiatal hernia located within the left lower chest. 2. Increased moderate linear atelectasis of the left lower lobe and infrahilar region adjacent to the hiatal hernia. Brain CT 10/22/24 15:18 IMPRESSION: 1. No acute intracranial abnormality. 2. Periventricular white matter changes consistent with chronic microvascular disease. 3. Diffuse volume loss. - Medical Decision Making ED Course: [ Patient is an 84-year-old male history of dementia, diabetes, chronic kidney disease brought into emergency department for evaluation of worsening confusion. Patient denies any chest pain or abdominal pain. No nausea no vomiting. History was also obtained from EMS staff nursing staff.] Prior external records reviewed: Outpatient records The patient has received a medical screening examination: within reasonable clinical confidence hasbeen stabilized in the ED. Reviewed pertinent findings from resulted labs: [ yes] Imaging and EKG: Interpretation by radiology. [ yes] [ EKG interpreted by myself and discussed with patient. Full EKG read found on [employer]Server ] Presenting clinical condition necessitates admission or observation consideration: [ Yes ] Independent Hx provided by: [ Patient/EMS/RN ] Med Rx considered but ultimately not given: [ none ] Dx tests considered but ultimately not ordered: [ none ] Social determinant that may affects healthcare: [ none ] Pt?s case/impression summarized and discussed with: [ Patient/Hospitalist ] Likely Dx given clinical picture: [Altered mental status, acute on chronic kidney failure. ] Although not an exhaustive list of Differential Diagnosis (though considered), patient?s HPI, PE, and other findings are not suggestive of: [ Sepsis] [ Patient at the time of disposition was stable however in serious and/or critical condition from their presenting complaint thus requiring admission. CT scan of the brain revealed no acute intracranial hemorrhage. No acute findings per radiology report. Chest x-ray revealed left lower lobe atelectasis. Lab results revealed elevated creatinine level. He appears to have acute on chronic renal failure. His baseline creatinine is around 1.4. And today his creatinine level is 1.84. Patient would benefit from admission to hospital for further evaluation and management. Subsequently have spoken with hospitalist on-call , and she agreed to admit the patient. The patient and/or family was given the opportunity to ask questions prior to admission, understoodmy verbal discussion of the plans for treatment, expected course, and the need for timely follow upas directed. ] Condition: Stable Disposition: [ Admit ] This document has been created using voice recognition software and may contain grammatical and typographical errors. ED Discharge Summary - Discharge Data Clinical Impression: Altered mental status, Acute on chronic renal failure Condition: Good Disposition: 09 ADMITTED INPATIENT Home Medications: Ambulatory Orders Medication Instructions Recorded Fenofibrate Nanocrystallized 145 mg PO DAILY 12/08/17 [Fenofibrate] Finasteride 5 mg PO DAILY 12/08/17 Aspirin [Aspirin 81 mg Chew Tablet] 81 mg PO DAILY 10/13/20 Donepezil HCl [Aricept 5 mg Tablet] 5 mg PO QPM 10/13/20 Tamsulosin HCl [Flomax 0.4 mg 0.4 mg PO QPM 10/13/20 Capsule] Divalproex Sodium [Depakote] 125 mg PO BID 08/11/21 Loperamide HCl [Loperamide] 2 mg PO Q6H PRN 08/11/21 Acetaminophen [Acetaminophen Extra 500 mg PO BID 06/01/23 Strength] Cimetidine 400 mg PO BID 06/01/23 Dexlansoprazole [Dexilant] 60 mg PO DAILY 06/01/23 Hydralazine HCl 25 mg PO TID 30 Days #90 tablet 06/02/23 Menthol [Biofreeze] 89 ml TP QID PRN 12/22/23 Cholecalciferol (Vitamin D3) 2,000 unit PO DAILY 10/22/24 [Vitamin D3 1000 Unit Tablet] Cyanocobalamin (Vitamin B-12) 500 mcg PO DAILY 10/22/24 [Vitamin B-12 500 Mcg Tablet] Lactobacillus Acidophilus 100 mg PO DAILY 10/22/24 [Acidophilus] Pravastatin Sodium 10 mg PO 10/23/24 Time Seen by Provider: 10/22/24 15:14 Electronically Generated By:BRYANNA GAFFNEY MD Generated Date/Time: 10/22/24 1624 Electronically Signed By: 10/23/24 1830 Co Signed Electronically By: Co Signed Date/Time: CC: MONTRELL EDWARD MD [facility]01-07-2025 Evaluation note* Diagnosis Onset Date Resolution Status Admit Date Acute renal failure superimposed on chronic kidney disease acute October 22 4:42pm Altered mental status acute Oct 4:42pm [facility] Work Phone: 1(672) 787-564301-07-2025 Radiology Diagnostic study note [facility] RADIOLOG[facility] [place] [address] CT SCAN REPORT : [id number], Signed. Patient: WILEY MEEK : 1940 MR#: [id number] Acct:[id number] - EXAMINATION: CT OF THE HEAD WITHOUT CONTRAST 10/22/2024 4:01 pm TECHNIQUE: CT of the head was performed without the administration of intravenous contrast. Automated exposure control, iterative reconstruction, and/or weight based adjustment of the mA/kV was utilized to reduce the radiation dose to as low as reasonably achievable. COMPARISON: 05/25/2024 HISTORY: ORDERING SYSTEM PROVIDED HISTORY: altered mental status FINDINGS: BRAIN/VENTRICLES: There is no acute intracranial hemorrhage, mass effect or midline shift. No abnormal extra-axial fluid collection. The connolly-white differentiation is maintained without evidence of an acute infarct. There is no evidence of hydrocephalus. Periventricular white matter changes consistent chronic microvascular disease. Diffuse volume loss. ORBITS: The visualized portion of the orbits demonstrate no acute abnormality. SINUSES: The visualized paranasal sinuses and mastoid air cells demonstrate no acute abnormality. SOFT TISSUES/SKULL: No acute abnormality of the visualized skull or soft tissues. CT/CT BRAIN WO IMPRESSION: 1. No acute intracranial abnormality. 2. Periventricular white matter changes consistent with chronic microvascular disease. 3. Diffuse volume loss. All CT scans at this facility use dose modulation, iterative reconstruction, and/or weight based dosing when appropriate to reduce radiation dose to as low as reasonably achievable. Electronically Signed by: LINDSEY CHARLES MD Signed date/time: 10/22/24 9852 CC: BRYANNA GAFFNEY MD; MONTRELL EDWARD MD [facility] Work Phone: 1(178) 774-675601-07-2025 Radiology Diagnostic study note [facility] [place] [address] DIAGNOSTIC RADIOLOGY REPORT: [id number], Signed. 2 Patient: WILEY MEEK : 1940, age 84 MR#: [id number] Acct: [id number] - EXAMINATION: ONE XRAY VIEW OF THE CHEST 10/22/2024 3:43 pm COMPARISON: Portable chest from 12/22/2023. CT of the abdomen and pelvis from 09/01/2022. HISTORY: ORDERING SYSTEM PROVIDED HISTORY: Sepsis FINDINGS: There is no change in the massive hiatal hernia located within the left lower chest. There is increased moderate linear atelectasis of the left lower lobe and infrahilar region adjacent to the hiatal hernia. The rest of the chest remains clear. The lungs remain clear. There is no sign of any infiltrate or effusion. The heart remains normal in size. The mediastinum is normal in appearance. The osseous structures are normal in appearance for the patient's age. DIAG/CHEST AP IMPRESSION: 1. No change in the massive hiatal hernia located within the left lower chest. 2. Increased moderate linear atelectasis of the left lower lobe and infrahilar region adjacent to the hiatal hernia. Electronically Signed by: VALENTIN CARREON MD Signed date/time: 10/22/24 1871 CC: BRYANNA GAFFNEY MD; MONTRELL EDWARD MD [facility] Work Phone: 1(798) 763-514203-10-2024 History and physical note Author PRESTON BERKOWITZ [facility] December 24, 2023 8:06pm Note Date/Time December 22, 2023 10:4 2pm [facility] [address] [place] [id number] HEALTH INFORMATION MANAGEMENT HISTORY AND PHYSICAL : [id number] Signed Patient: WILEY MEEK Acct:[id number] MRUN: [id number] : 1940 Sex: M Loc: 4TH FLOOR ADM Date: 12/22/23 Room/Bed: 431-B DISC Date: 12/24/23 History of Present Illness Date Of Admission: 12/22/23 Chief Complaint: Confusion/altered mental status Onset of Chief Complaint: 12/22/23 History of Present Illness: Visit History WILEY MEEK is a 83 year old M patient of MONTRELL EDWARD MD. Patient was admitted from Emergency Dept to room 431, bed B on 12/22/23 20:45. Pt was evaluated for complaints of , then admitted to [facility] for ZAY. WILEY was admitted as a ADM to [facility] for further evaluation and treatment. Pt was seen and evaluated on 12/22/23 2242, by this provider, INDIGO DOCKERY CNP. History of present illness: Mr. Meek an 83-year-old male comes to [facility] fromhis assisted living facility as they were concerned with the change in his mental status/confusion that started in the morning. When he arrived to the emergency room he was mildly disoriented and alert. He was oriented x [address] There were complaints of foul-smelling urine however his urinalysis was negative for infection. He denies fever, chills, cough, sore throat, runny nose, headache, dizziness/lightheadedness, diaphoresis, rash, congestion, shortness of breath, chest pain, abdominal pain, loss of appetite, nausea/vomiting, diarrhea/constipation, blood in urine or stool, generalized weakness, difficulty walking, numbness/tingling/paresthesias, unilateral weakness, facial droop, change in vision hearing or speech, exposure to COVID-positive individuals. He has a past medical/surgical history that includes: Asthma, bronchitis, HTN, hypercholesterolemia, dementia, memory loss, type 2 diabetes, GERD, hernia, appendectomy, UTI, arthritis, depression, bilateral cataract removal, farsighted. Patient reports he received the COVID-19 vaccine and all boosters as well as the flu shot but could not tell me the brand of COVID-vaccine he received. He is and lives at [place] [address]. He quit smoking 20 years ago. He does not drink alcohol or use illicit drugs. Allergies/Adverse Reactions: morphine Allergy (Verified 08/25/21 16:07) Sulfa (Sulfonamide Antibiotics) Allergy (Verified 08/25/21 16:07) Home Medications: Patient History Fenofibrate Nanocrystallized [Fenofibrate] 145 mg PO DAILY 12/08/17 [History Confirmed 12/23/23] Finasteride 5 mg PO DAILY 12/08/17 [History Confirmed 12/23/23] Pravastatin Sodium 80 mg PO QPM 12/08/17 [History Confirmed 12/23/23] Aspirin [Aspirin 81 mg Chew Tablet] 81 mg PO DAILY 10/13/20 [History Confirmed 12/23/23] Donepezil HCl [Aricept 5 mg Tablet] 5 mg PO QPM 10/13/20 [History Confirmed 12/23/23] Tamsulosin HCl [Flomax 0.4 mg Capsule] 0.4 mg PO QPM 10/13/20 [History Confirmed 12/23/23] Divalproex Sodium [Depakote] 125 mg PO BID 08/11/21 [History Confirmed 12/23/23] Loperamide HCl [Loperamide] 2 mg PO Q6H PRN 08/11/21 [History Confirmed 12/23/23] Acetaminophen [Acetaminophen Extra Strength] 500 mg PO BID 06/01/23 [History Confirmed 12/23/23] Cimetidine 400 mg PO BID 06/01/23 [History Confirmed 12/23/23] Dexlansoprazole [Dexilant] 60 mg PO DAILY 06/01/23 [History Confirmed 12/23/23] Dextran 70/Hypromellose/Pf [Genteal Tears 0.1%-0.3% Drop] 1 drop BOTHEYES BID PRN 12/22/23 [History Confirmed 12/22/23] Guaifenesin [Mucinex 600 mg Tablet] 600 mg PO BID 12/22/23 [History Confirmed 12/23/23] Menthol [Biofreeze] 89 ml TP QID PRN 12/22/23 [History Confirmed 12/22/23] RX history Hydralazine HCl 25 mg PO TID 30 Days #90 tablet 06/02/23 [Rx Confirmed 12/23/23] Past Social History Marital Status: Lives with: Nursing Facility Occupation: Patient lives in assisted living Highest Educational Level: High School Able to Read: Yes Able to Write: Yes Smoking Status: Never Smoked Alcohol Use: Never Drugs: None - Sweet/Gender ID What is your current Gender Identity? Choose all that Apply: Male Define your Sexual Orientation?: Straight/Heterosexual - Crane-Suicide Severity Rating Scale 1) Wish to be :: No 2) Suicidal Thoughts:: No 6) Suicidal Behavior Question (A): LIFETIME: No 6) Suicidal Behavior Question (B): PAST 3 MONTHS: No Past Medical History Hx Ear/Nose/Throat Disorders: Yes PMH--Ear/Nose/Throat: Confirms: Cataracts, Farsighted Past Surgical Hx-ENT: Confirms: Cataract Removal-Right, Cataract Removal-Left Hx Neurological Disorder: Yes PMH-Neurological: Confirms: Dementia, Memory Loss Hx Psychosocial Problems: No PMH--Psychological & Treatments: Confirms: Depression Hx Cardiac Disorders: Yes PMH--Cardiovascular: Confirms: HTN, Hypercholesterolemia Hx Respiratory Disorders: Yes (reviewed ) PMH--Respiratory: Confirms: Asthma Hx Endocrine Disorders: Yes PMH--Endocrine History: Confirms: Diabetes Type 2 ITU-Ctubd-Gwtkikyhn:: heart burn Hx Musculoskeletal Disorders: No PMH--Musculoskeletal: Confirms: Arthritis Hx Reproductive Disorders: No Hx Genitourinary Disorders: Yes PMH--Genitourinary: Confirms: UTI Hx Gastrointestinal Disorders: Yes PMH--Gastrointestinal: Confirms: GERD, Hernia Past Surgical Hx--GI: Confirms: Appendectomy Hx Cancer: No Other PMH: Confirms: Chicken Pox, Measles, Mumps PHM--Communicable Diseases: Confirms: Chicken Pox, Mumps, Measles Family Medical History - Family Medical History Father Living Status: Cardiac History: Cardiac Disorder(s), Myocardial Infarction Review of Systems General: Confirms: Other (Patient reports he has not been drinking enough fluidslately.). Denies: Fever, Chills, Sweats, Weakness, Fatigue, Weight Gain, WeightLoss Head/Eye: Denies: Headache, Head Injury/Trama, Hear Loss, Pain, Itching, Redness, Matting, Blurry Vision, Double Vision, Scotoma (Spots), Amauriosis, Excessive Tearing, Other ENT: Denies: Earache, Ear Discharge, Decreased Hearing, Tinnitus, Nose Congestion, Nose Drainage, Nasal Ulcers, Epitaxis, Sore Throat, Throat Swelling,Hoarseness, Loss Of Voice, Tongue Pain, Tongue Swelling, Lip Swelling, Dental Pain, Cervical, Other Respiratory: Denies: Cough, Shortness of Breath, Wheezing, Sputum Production, Hemoptysis, Dyspnea on Exertion, Pleuritic Pain, Other Cardiovascular: Confirms: Light Headedness (Dizziness/lightheadedness with especially when first standing.). Denies: Chest Pain-Sharp, Chest Pain-Heavy, Orthopnea, Short of Breath, Dyspnea on Exertion, Paroxysmal Noc. Dyspnea, Edema,Palpitations, Syncope, Diaphoresis, Claudication, Edema, Other Gastrointestinal: Denies: Nausea, Vomiting, Abdominal Pain, Diarrhea, Constipation, Melena, Hematochezia, Hematemesis, Rectal Pain, Other Genitourinary: Denies: Dysuria, Frequency, Incontinence, Hematuria, Retention, Urgency, Other Musculoskeletal: Denies: Neck Pain, Shoulder Pain, Arm Pain, Back Pain, Hand Pain, Leg Pain, Foot Pain, Other Skin: Denies: Rash, Lesions, Jaundice, Bruising, Other Neurological: Denies: Weakness, Numbness, Incoordination, Change in Speech, Confusion, Seizures, Other Physical Exam Review of Systems Completed?: Yes Vital Signs: Vital Signs (72 hours) 12/22/23 12/22/23 16:46 20:57 Temperature 97.2 F L Pulse Rate [ 94 88 Pulse Ox] Respiratory 14 Rate Blood Pressure 116/66 [Left Arm] O2 Sat by Pulse 95 95 Oximetry(%) General: Yes: Alert, Oriented (X3), Cooperative/Pleasant, No acute distress HEENT: Yes: Atraumatic, PERRLA, EOMI, Mucous membr. moist/pink Lungs: Yes: Clear to auscultation, Normal air movement, Unlabored. No: Exibits Shortness of Marisa, Shortness Of Breath Scale Cardiovascular: Yes: Regular rate, Normal S2, Normal S1, No murmurs. No: Gallops, Rubs Abdomen: Yes: Bowel Sounds X4, Soft, No Tenderness. No: Large/Obese, Distended,Rigid, Nausea/Vomiting, Emesis Present, Constipation, Diarrhea Extremities: Yes: Normal pulses. No: Clubbing, Cyanosis, Edema, Bilateral Leg Edema, Mottling noted Skin: No: Rashes, Skin Breakdown, Significant lesions, Open Wound Present, Skin Tear Neurological: Yes: Speech Clear, Strength Normal X4 ext, Cranial nerves 3-12 NL,Cognitive Ability Intact Psych/Mental Status: Yes: Mental status NL, Mood Appropriate. No: Depressed/Withdrawn, Hallucinations Genitourinary/Rectal: Yes: Deferred-Not Relevant Breast Exam: Yes: Deferred-Not Relevant Impressions - Problems (1) Metabolic encephalopathy Status: Acute Priority: High Present on admission?: Yes Current Visit: Yes (2) Altered mental status Problems: Altered mental status type: disorientation Qualified Code(s): R41.0 - Disorientation, unspecified Status: Acute Priority: High Present on admission?: Yes Current Visit: Yes (3) Acute kidney injury superimposed on CKD Status: Acute Priority: High Present on admission?: Yes Current Visit: Yes (4) Dehydration Status: Acute Priority: High Present on admission?: Yes Current Visit: Yes (5) Dizziness Status: Acute Priority: High Present on admission?: Yes Current Visit: Yes (6) Diabetes mellitus type 2 Status: Chronic Priority: Medium Present on admission?: Yes Current Visit: No Plan/Treatment Current Plan: See New Orders Plan: Impression/plan: 1. Metabolic encephalopathy/AMS: Patient is afebrile and WBC is normal at 7.2. CT of the brain finds no evidence of acute intracranial process. Currently patient is alert and oriented x 3. UA and chest x-ray are negative for infection. Patient's brief metabolic encephalopathy may have occurred due to dehydration and I suspect the patient will be feeling much better tomorrow afterreceiving fluids. 2. ZAY on CKD/dehydration: Creatinine 1.79, GFR 37, BUN 27.6. Patient received1 L of 0.9 normal saline followed by 0.9 normal saline at 80 cc/h. We will reevaluate electrolytes and kidney function in the morning. 3. Dizziness: Patient has had complaints of dizziness when he stands initially. CT of the brain finds no evidence of acute intracranial process. We will be evaluating orthostatic blood pressures every 4 hours. 4. Diabetes, type II: Patient is not on medication for diabetes therefore he must be diet controlled. I have started a no concentrated sweet diet. We will be monitoring blood sugars before meals and at bedtime and cover any elevations with an insulin sliding scale. 5. GI prophylaxis: I have ordered Pepcid 20 mg p.o. twice daily and Protonix 40mg p.o. daily from home. 6. DVT prophylaxis: Patient will wear SCDs/LESLY hose and receive heparin 5000 units SQ every 12 hours throughout his hospital stay. New Orders: New Orders-Nursing Care 12/22/23 22:22 Discharge Plan Screen Needed [RC] ONE Social Service Consult CH [RC] PRN Visit Coding - VISIT CODING Date of Service: 12/22/23 Billing Provider:: INDIGO DOCKERY Common Visit Codes: [id number] INP/OBS CARE (MOD) Electronically Generated By:INDIGO DOCKERY HEALTH INFORMATION ASSISTANT Generated Date/Time: 12/22/232241 Electronically Signed By: <Electronically signed by INDIGO DOCKERY HEALTH INFORMATION ASSISTANT> 12/23/23 0604 <Electronically signed by PRESTON BERKOWITZ MD> 12/24/232005 Co Signed Electronically By: PRESTON BERKOWITZ MD Co Signed Date/Time: 12/24/232005 CC: MONTRELL EDWARD MD [facility] Work Phone: [phone]) [phone] Discharge summary Author GRETTA HALL [facility] December 24, 2023 12:12pm Note Date/Time December 24, 2023 12: 09pm [facility] [address] [place] [id number] HEALTH INFORMATION MANAGEMENT DISCHARGE SUMMARY : [id number] Signed Patient: WILEY MEEK Acct:[id number] MRUN: [id number] : 1940 Sex: M Loc: 4TH FLOOR ADM Date: 12/22/23 Room/Bed: 431-B DISC Date: - Hospital Course Events Since Admission: WILEY MEEK was admitted to OBSERVATION service into room 431 on 12/22/23 at 20:45 from Emergency Dept for complaints of ZAY. Laboratory and diagnostic testing has been reviewed. The patient was seen, evaluated and foundto be appropriate for discharge. WILEY MEEK is a 83 year old M patient of MONTRELL EDWARD MD. Patient was admitted from Emergency Dept to room 431, bed B on 12/22/23 20:45. Pt was evaluated for complaints of , then admitted to [facility] for ZAY. WILEY was admitted as a ADM to [facility] for further evaluation and treatment. Pt was seen and evaluated on 12/22/23 2242, by this provider, INDIGO DOCKERY CNP. History of present illness: Mr. Meek an 83-year-old male comes to [facility] fromhis assisted living facility as they were concerned with the change in his mental status/confusion that started in the morning. When he arrived to the emergency room he was mildly disoriented and alert. He was oriented x [address] There were complaints of foul-smelling urine however his urinalysis was negative for infection. He denies fever, chills, cough, sore throat, runny nose, headache, dizziness/lightheadedness, diaphoresis, rash, congestion, shortness of breath, chest pain, abdominal pain, loss of appetite, nausea/vomiting, diarrhea/constipation, blood in urine or stool, generalized weakness, difficulty walking, numbness/tingling/paresthesias, unilateral weakness, facial droop, change in vision hearing or speech, exposure to COVID-positive individuals. He has a past medical/surgical history that includes: Asthma, bronchitis, HTN, hypercholesterolemia, dementia, memory loss, type 2 diabetes, GERD, hernia, appendectomy, UTI, arthritis, depression, bilateral cataract removal, farsighted. Patient reports he received the COVID-19 vaccine and all boosters as well as the flu shot but could not tell me the brand of COVID-vaccine he received. He is and lives at [place] [address]. He quit smoking 20 years ago. He does not drink alcohol or use illicit drugs. Reason For Visit: ZAY Hospital Course: Impressions - Problems (1) Metabolic encephalopathy Status: Acute Priority: High Present on admission?: Yes Current Visit: Yes (2) Altered mental status Problems: Altered mental status type: disorientation Qualified Code(s): R41.0 - Disorientation, unspecified Status: Acute Priority: High Present on admission?: Yes Current Visit: Yes (3) Acute kidney injury superimposed on CKD Status: Acute Priority: High Present on admission?: Yes Current Visit: Yes (4) Dehydration Status: Acute Priority: High Present on admission?: Yes Current Visit: Yes (5) Dizziness Status: Acute Priority: High Present on admission?: Yes Current Visit: Yes (6) Diabetes mellitus type 2 Status: Chronic Priority: Medium Present on admission?: Yes Current Visit: No Plan/Treatment Current Plan: See New Orders Plan: Impression/plan: 1. Metabolic encephalopathy/AMS: Patient is afebrile and WBC is normal at 7.2. CT of the brain finds no evidence of acute intracranial process. Currently patient is alert and oriented x 3. UA and chest x-ray are negative for infection. Patient's brief metabolic encephalopathy may have occurred due to dehydration and I suspect the patient will be feeling much better tomorrow afterreceiving fluids. 2. ZAY on CKD/dehydration: Creatinine 1.79, GFR 37, BUN 27.6. Patient received1 L of 0.9 normal saline followed by 0.9 normal saline at 80 cc/h. We will reevaluate electrolytes and kidney function in the morning. Labs much improved and stable 3. Dizziness: Patient has had complaints of dizziness when he stands initially. CT of the brain finds no evidence of acute intracranial process. We will be evaluating orthostatic blood pressures every 4 hours. 4. Diabetes, type II: Patient is not on medication for diabetes therefore he must be diet controlled. I have started a no concentrated sweet diet. We will be monitoring blood sugars before meals and at bedtime and cover any elevations with an insulin sliding scale. 5. GI prophylaxis: I have ordered Pepcid 20 mg p.o. twice daily and Protonix 40mg p.o. daily from home. 6. DVT prophylaxis: Patient will wear SCDs/LESLY hose and receive heparin 5000 units SQ every 12 hours throughout his hospital stay. OK to [facility] to [facility] Treatment: 12/24/23 05:51 12/24/23 05:51 Laboratory Results - last 24 hr 12/24/23 07:47: POC Glucose (mg/dL) 121 12/24/23 05:51: WBC 10.2, RBC 3.75 L, Hgb 11.7 L, Hct 37.6, MCV 100.3 H, MCH 31.2 H, MCHC 31.1 L, RDW 13.9, Plt Count 258, MPV 9.1, Neut % (Auto) 73.1 H, Lymph % (Auto) 16.4 L, [place] % (Auto) 8.5, Eos % (Auto) 1.5, Baso % (Auto) 0.3, Abs Immat Gran (man) 0.02, Absolute Neuts (auto) 7.44 H, Absolute Lymphs (auto) 1.70, Absolute Monos (auto) 0.90 H, Absolute Eos (auto) 0.20, Absolute Basos (auto) 0.03, Immature Gran % 0.20 12/24/23 05:51: Sodium 141, Potassium 3.9, Chloride 107, Total Carbon Dioxide 28, Anion Gap 9.9, BUN 23.5, Creatinine 1.42 H, Est GFR (MDRD) Af Amer 58 A, EstGFR (MDRD) Non-Af 48 A, BUN/Creatinine Ratio 17, Glucose 118 H, Calcium 8.5 12/23/23 21:15: POC Glucose (mg/dL) 155 12/23/23 17:00: POC Glucose (mg/dL) 116 12/23/23 11:46: POC Glucose (mg/dL) 123 Intake & Output 12/21/23 12/22/23 12/23/23 12/25/23 23:59 23:59 23:59 00:59 Intake Total 620 2961 360 Output Total 0 200 Balance 620 2761 360 Weight 192 lb 3.2 oz 195 lb 3.2 oz See radiology reports in electronic medical record. - Problems (1) Metabolic encephalopathy Additional text: Impressions - Problems (1) Metabolic encephalopathy Status: Acute Priority: High Present on admission?: Yes Current Visit: Yes (2) Altered mental status Problems: Altered mental status type: disorientation Qualified Code(s): R41.0 - Disorientation, unspecified Status: Acute Priority: High Present on admission?: Yes Current Visit: Yes (3) Acute kidney injury superimposed on CKD Status: Acute Priority: High Present on admission?: Yes Current Visit: Yes (4) Dehydration Status: Acute Priority: High Present on admission?: Yes Current Visit: Yes (5) Dizziness Status: Acute Priority: High Present on admission?: Yes Current Visit: Yes (6) Diabetes mellitus type 2 Status: Chronic Priority: Medium Present on admission?: Yes Current Visit: No Plan/Treatment Current Plan: See New Orders Plan: Impression/plan: 1. Metabolic encephalopathy/AMS: Patient is afebrile and WBC is normal at 7.2. CT of the brain finds no evidence of acute intracranial process. Currently patient is alert and oriented x 3. UA and chest x-ray are negative for infection. Patient's brief metabolic encephalopathy may have occurred due to dehydration 2. ZAY on CKD/dehydration: Creatinine 1.79, GFR 37, BUN 27.6. Patient receiving 0.9 normal saline at 80 cc/h. We will reevaluate electrolytes and kidney function in the morning. 3. Dizziness: Patient has had complaints of dizziness when he stands initially. CT of the brain finds no evidence of acute intracranial process. We will be evaluating orthostatic blood pressures every 4 hours. 4. Diabetes, type II: Patient is not on medication for diabetes therefore he must be diet controlled. I have started a no concentrated sweet diet. We will be monitoring blood sugars before meals and at bedtime and cover any elevations with an insulin sliding scale. 5. GI prophylaxis: I have ordered Pepcid 20 mg p.o. twice daily and Protonix 40mg p.o. daily from home. 6. DVT prophylaxis: Patient will wear SCDs/LESLY hose and receive heparin 5000 units SQ every 12 hours throughout his hospital stay. Status: Acute Priority: High Current Visit: Yes - Discharge Information Discharge Diagnosis:: renal failure. metabolic encephalopathy Disposition: 01 HOME / SELF CARE Condition: Good Plan of Treatment: follow with pcp in 1-2 weeks - Discharge Instructions Referrals: MONTRELL EDWARD MD [Primary Care Provider] - Activity Level For Discharge:: As Tolerated Discharge Diet: Low Sodium Weight Bearing Status: Weight Bearing as Tolerated Visit Coding - VISIT CODING Date of Service: 12/24/23 Billing Provider:: GRETTA HALL Common Visit Codes: 84951-ULT/OBS DISCH DAY <30MIN Electronically Generated By:GRETTA HALL MD Generated Date/Time: 12/24/23 1207 Electronically Signed By: <Electronically signed by GRETTA HALL MD> 12/24/23 1212 Co Signed Electronically By: Co Signed Date/Time: CC: MONTRELL EDWARD MD [facility] Work Phone: [phone]) 482-907603-09-2024 Progress note Author GRETTA HALL [facility] December 23, 2023 10:39am Note Date/Time December 23, 2023 10:3 8am [facility] [address] [place] [id number] HEALTH INFORMATION MANAGEMENT PROGRESS NOTE : [id number] Signed Patient: WILEY MEEK Acct:[id number] MRUN: [id number] : 1940 Sex: M Loc: 4TH FLOOR ADM Date: 12/22/23 Room/Bed: 431-B DISC Date: Subjective Assessment Date Of Service: 12/23/23 Events Since Admission: WILEY MEEK was admitted to OBSERVATION service into room 431 on 12/22/23 at 20:45 for complaints of ZAY. The patient's laboratory testing and diagnostic testing has been reviewed. pt seen and doing better no issues noted overnight mental status stable Status: Pt Condition Improving Condition: Stable General: Denies: Fever, Chills, Sweats, Weakness, Fatigue, Weight Gain, Weight Loss, Other ENT: Denies: Earache, Ear Discharge, Decreased Hearing, Tinnitus, Nose Congestion, Nose Drainage, Nasal Ulcers, Epitaxis, Sore Throat, Throat Swelling,Hoarseness, Loss Of Voice, Tongue Pain, Tongue Swelling, Lip Swelling, Dental Pain, Cervical, Other Respiratory: Denies: Cough, Shortness of Breath, Wheezing, Sputum Production, Hemoptysis, Dyspnea on Exertion, Pleuritic Pain, Other Cardiovascular: Denies: Chest Pain-Sharp, Chest Pain-Heavy, Orthopnea, Short of Breath, Dyspnea on Exertion, Paroxysmal Noc. Dyspnea, Edema, Palpitations, LightHeadedness, Syncope, Diaphoresis, Claudication, Edema, Other Gastrointestinal: Denies: Nausea, Vomiting, Abdominal Pain, Diarrhea, Constipation, Melena, Hematochezia, Other Objective Findings General: Yes: Alert, Oriented (X3), Cooperative/Pleasant, No acute distress HEENT: Yes: Atraumatic, PERRLA, EOMI, PERRL, Mucous membr. moist/pink Neck: Yes: Supple, +2 carotid pulse wo bruit. No: JVD, Thyromegaly Lungs: Yes: Clear to auscultation, Normal air movement, Unlabored. No: Exibits Shortness of Marisa, Pursed Lip Breathing, Use of Accessory Muscles, Retracting Cardiovascular: Yes: Regular rate, Normal S2, Normal S1, No murmurs, Rubber Curer Rhythm (Sinus Rhythm). No: Gallops, Rubs, Ectopy Abdomen: Yes: Bowel Sounds X4, Soft, No Tenderness, Flatus. No: Hepatospenomegaly, Masses, Nausea/Vomiting, Emesis Present, Constipation, Diarrhea Extremities: Yes: Normal pulses. No: Clubbing, Cyanosis, Edema, No tenderness/swelling, Mottling noted Skin: No: Rashes, Skin Breakdown, Significant lesions, Open Wound Present Neurological: Yes: Speech Clear, Strength Normal X4 ext, Normal tone, Sensation intact, Cranial nerves 3-12 NL, Cognitive Ability Intact Psych/Mental Status: Yes: Mental status NL, Mood Appropriate. No: Hallucinations Vitals and I&O: Vital Signs Temperature 97.1 F L 12/23/23 08:26 Pulse Rate 81 12/23/23 08:26 Respiratory Rate 18 12/23/23 08:26 Blood Pressure 164/84 H 12/23/23 08:26 O2 Sat by Pulse Oximetry(%) 94 L 12/23/23 08:26 FiO2 - Manual Entry Intake & Output 12/22/23 12/22/23 12/23/23 11:59 23:59 11:59 Intake Total 620 360 Output Total 0 Balance 620 360 Weight 192 lb 3.2 oz Intake: IV Intake 500 Sodium Chloride 0.9 % 500 1000 ml 500 ml @ 999 mls/ hr IV .Q31M STA Rx#: [id number] Intake ml 120 360 Oral 120 120 Output: Output ml 0 Urine 0 Other: Output Urine Nonnumeric/ Comment Urine medx2 Laboratory-Last 48 hrs: 12/23/23 05:50 12/23/23 05:50 Laboratory Results-last 24 hrs 12/22/23 17:09: BUN 27.6 H, Creatinine 1.79 H, Est GFR (MDRD) Af Amer 44 A, Est GFR (MDRD) Non-Af 37 A, Glucose 122 H, Alkaline Phosphatase 50 L, Albumin 3.3 L,Albumin/Globulin Ratio 0.8 L 12/22/23 17:09: RBC 4.06 L, MCV 99.5 H, MCH 31.3 H, MCHC 31.4 L 12/22/23 18:24: Urine Protein 25 A, Urine Ketones 5 A, Urine Bilirubin 1 A 12/23/23 05:50: BUN 28.2 H, Creatinine 1.61 H, Est GFR (MDRD) Af Amer 50 A, Est GFR (MDRD) Non-Af 41 A, Glucose 109 H 12/23/23 05:50: RBC 3.84 L, Hgb 12.0 L, MCV 100.5 H, MCH 31.3 H, MCHC 31.1 L, Absolute Neuts (auto) 6.34 H, Absolute Monos (auto) 0.90 H Radiology-Impressions: See radiology reports in electronic medical record. Impressions - Problems (1) Metabolic encephalopathy Additional Text: Impressions - Problems (1) Metabolic encephalopathy Status: Acute Priority: High Present on admission?: Yes Current Visit: Yes (2) Altered mental status Problems: Altered mental status type: disorientation Qualified Code(s): R41.0 - Disorientation, unspecified Status: Acute Priority: High Present on admission?: Yes Current Visit: Yes (3) Acute kidney injury superimposed on CKD Status: Acute Priority: High Present on admission?: Yes Current Visit: Yes (4) Dehydration Status: Acute Priority: High Present on admission?: Yes Current Visit: Yes (5) Dizziness Status: Acute Priority: High Present on admission?: Yes Current Visit: Yes (6) Diabetes mellitus type 2 Status: Chronic Priority: Medium Present on admission?: Yes Current Visit: No Plan/Treatment Current Plan: See New Orders Plan: Impression/plan: 1. Metabolic encephalopathy/AMS: Patient is afebrile and WBC is normal at 7.2. CT of the brain finds no evidence of acute intracranial process. Currently patient is alert and oriented x 3. UA and chest x-ray are negative for infection. Patient's brief metabolic encephalopathy may have occurred due to dehydration 2. ZAY on CKD/dehydration: Creatinine 1.79, GFR 37, BUN 27.6. Patient receiving 0.9 normal saline at 80 cc/h. We will reevaluate electrolytes and kidney function in the morning. 3. Dizziness: Patient has had complaints of dizziness when he stands initially. CT of the brain finds no evidence of acute intracranial process. We will be evaluating orthostatic blood pressures every 4 hours. 4. Diabetes, type II: Patient is not on medication for diabetes therefore he must be diet controlled. I have started a no concentrated sweet diet. We will be monitoring blood sugars before meals and at bedtime and cover any elevations with an insulin sliding scale. 5. GI prophylaxis: I have ordered Pepcid 20 mg p.o. twice daily and Protonix 40mg p.o. daily from home. 6. DVT prophylaxis: Patient will wear SCDs/LESLY hose and receive heparin 5000 units SQ every 12 hours throughout his hospital stay. Status: Acute Priority: High Current Visit: Yes Plan/Treatment New Orders: New Orders-Lab 12/24/23 04:00 BMP [Basic Metabolic Panel] [CHM] DAILY@0400 CBC w/Auto Differential [HEM] DAILY@0400 Visit Coding - VISIT CODING Date of Service: 12/23/23 Billing Provider:: GRETTA HALL Common Visit Codes: [id number] INP/OBS CARE(MOD) Electronically Generated By:GRETTA HALL MD Generated Date/Time: 12/23/23 1036 Electronically Signed By: <Electronically signed by GRETTA HALL MD> 12/23/23 1039 Co Signed Electronically By: Co Signed Date/Time: CC: [facility] Work Phone: [phone] Discharge summary Author DENIZ MCPHERSON [facility] December 23, 2023 8:20am Note Date/Time December 22, 2023 5:26 pm [facility] [address] [place] [id number] HEALTH INFORMATION MANAGEMENT EMERGENCY DEPARTMENT : [id number] Signed Patient: WILEY MEEK Acct:[id number] MRUN: [id number] : 1940 Sex: M Loc: 4TH FLOOR ADM Date: 12/22/23 Room/Bed: 431-B DISC Date: History of Present Illness - General Chief Complaint: Altered Mental Status Symptom onset: 06:00 HPI: PATIENT PRESENTS TO THE ER TODY WITH REPORTED ALTERED MENTAL STATUS. PER EMS, FACILITY STATED PATIENT HAD SOME INCREASED CONFUSION THIS MORNING. Time Seen by Provider: 12/22/23 16:41 Source: [facility] History of Present Illness Initial Comments: 83-year-old male with history of type 2 diabetes, hypertension and chronically disease was brought to ER by squad as patient was found to be disoriented. He was alert oriented x 2. MD Complaint: Complains of: altered mental status -: hour(s) Associated Symptoms: Complains of: foul smelling urine. Denies: chest pain, cough, diaphoresis, fever/chills, loss of appetite, malaise, nausea/vomiting, shortness of breath, weakness, difficulty walking - Related Data Home Medications Medication Instructions Recorded Confirmed Fenofibrate Nanocrystallized 145 mg PO DAILY 12/08/17 12/23/23 [Fenofibrate] Finasteride 5 mg PO DAILY 12/08/17 12/23/23 Pravastatin Sodium 80 mg PO QPM 12/08/17 12/23/23 Aspirin [Aspirin 81 mg Chew Tablet] 81 mg PO DAILY 10/13/20 12/23/23 Donepezil HCl [Aricept 5 mg Tablet] 5 mg PO QPM 10/13/20 12/23/23 Tamsulosin HCl [Flomax 0.4 mg 0.4 mg PO QPM 10/13/20 12/23/23 Capsule] Divalproex Sodium [Depakote] 125 mg PO BID 10/27/21 03/09/24 Loperamide HCl [Loperamide] 2 mg PO Q6H PRN 08/11/21 12/23/23 Acetaminophen [Acetaminophen Extra 500 mg PO BID 06/01/23 12/23/23 Strength] Cimetidine 400 mg PO BID 06/01/23 12/23/23 Dexlansoprazole [Dexilant] 60 mg PO DAILY 06/01/23 12/23/23 Hydralazine HCl 25 mg PO TID 30 Days #90 tablet 06/02/23 12/23/23 Dextran 70/Hypromellose/Pf 1 drop BOTHEYES BID PRN 12/22/23 12/22/23 [Genteal Tears 0.1%-0.3% Drop] Guaifenesin [Mucinex 600 mg Tablet] 600 mg PO BID 12/22/23 12/23/23 Menthol [Biofreeze] 89 ml TP QID PRN 12/22/23 12/22/23 Allergies Allergy/AdvReac Type Severity Reaction Status Date / Time morphine Allergy Verified 08/25/21 16:07 Sulfa (Sulfonamide Allergy Verified 08/25/21 16:07 Antibiotics) Review of System - All Others/Exceptions All Other Systems: Reviewed and Negative Except Where Noted in Documentation ED PMH/Social HX/Family HX - Respiratory Hx Respiratory Disorders: Yes (reviewed ) PMH--Respiratory: Asthma, Bronchitis - Cardiovascular Hx Cardiac Disorders: Yes PMH--Cardiovascular: HTN, Hypercholesterolemia - Neurological Hx Neurological Disorder: Yes PMH--Neurological: Dementia, Memory Loss - Endocrine Hx Endocrine Disorders: Yes PMH--Endocrine History: Diabetes Type 2 - Gastrointestinal Hx Gastrointestinal Disorders: Yes PMH--Gastrointestinal: GERD, Hernia Other GI PMH: heart burn Past Surgical Hx--GI: Appendectomy - Genitourinary Hx Genitourinary Disorders: Yes PMH--Genitourinary: UTI - Musculoskeletal Hx Musculoskeletal Disorders: No PMH--Musculoskeletal: Arthritis - Reproductive Hx Reproductive Disorders: No - Psychological Hx Psychosocial Problems: Yes PMH--Psychological & Treatments: Depression - HEENT Hx Ear, Nose Throat Disorders: Yes PMH--Ears Nose and Throat: Cataracts, Farsighted Past Surgical Hx-ENT: Cataract Removal-Right, Cataract Removal-Left - Cancer Hx Cancer: No - Other Other PMH: Chicken Pox, Measles, Mumps - Social History Highest Educational Level: High School Able to Read: Yes Able to Write: Yes Smoking Status: Never Smoked Hx Chewing Tobacco Use: No Alcohol Use: Never Any recreational drug use reported?: No Feels Threatened In Home Environment: No Feels Threatened In a Relationship: No - Family PMH Father Living Status: Cardiac: Cardiac Disorder(s), Myocardial Infarction - Sweet/Gender ID What is your current Gender Identity? Choose all that Apply: Male Define your Sexual Orientation?: Straight/Heterosexual - Crane-Suicide Severity Rating Scale 1) Wish to be :: No 2) Suicidal Thoughts:: No 6) Suicidal Behavior Question (A): LIFETIME: No 6) Suicidal Behavior Question (B): PAST 3 MONTHS: No General Exam - Head Head exam: Present: atraumatic, normocephalic, normal inspection - Eye Eye exam: Present: normal apperance, normal accomodation, EOMI Pupils: Present: PERRL - ENT ENT exam: Present: normal orophraynx, mucous membranes moist, No Nasal Discharge, normal external ear exam, Posterior Pharynx Non-erethemetous - Neck Neck exam: Present: full ROM, Supple. Absent: tenderness, meningismus, Posterior Lymphadenopathy, Anterior Lymphadenopathy - Respiratory Respiratory exam: Present: lungs clear and equal bilaterally. Absent: respiratory distress, wheezes, rales, rhonchi, accessory muscle use - Cardiovascular Cardiovascular Exam: Present: regular rate, normal rhythm, normal heart sounds. Absent: murmur, rubs, gallop, clicks - GI/Abdominal GI/Abdominal exam: Present: soft, non tender, normal bowel sounds. Absent: guarding, rebound, rigid, mass, bruit - Extremities Exam Extremities exam: Present: normal inspection, full ROM, neurovascularly intact - Back Exam Back exam: Present: normal inspection, full ROM. Absent: tenderness - Neurological Exam Neurological exam: Present: alert, oriented X3, CN II-XII intact - Psychiatric Psychiatric exam: Present: normal affect, normal mood - Skin Skin Color: Present: Normal, [place] Skin exam: Present: warm, dry - Vital Signs Vital Signs 12/22/23 12/22/23 12/22/23 16:46 20:57 21:25 Temperature 97.2 F L 97.5 F L Pulse Rate [ 94 88 88 Pulse Ox] Respiratory 14 16 Rate Blood Pressure 116/66 141/75 H [Left Arm] O2 Sat by Pulse 95 95 95 Oximetry(%) ED AMS MDM - Lab Data Result diagrams: 12/23/23 05:50 12/23/23 05:50 Lab Results 12/22/23 12/22/23 12/22/23 Range/Units 16:53 17:09 17:09 WBC 7.2 (3.6-10.8) K/uL RBC 4.06 L (4.13-5.69) M/uL Hgb 12.7 (12.4-17.3) g/dL Hct 40.4 (36.7-50.6) % MCV 99.5 H (80.0-94.0) fL MCH 31.3 H (27.0-31.0) pg MCHC 31.4 L (33.0-37.0) g/dL RDW 13.7 (11.5-14.5) % Plt Count 289 (148-402) K/uL MPV 8.6 (7.4-10.4) fL Neut % (Auto) 62.2 (43.0-65.0) % Lymph % (Auto) 29.0 (17.0-45.5) % [place] % (Auto) 6.9 (5.5-11.7) % Eos % (Auto) 1.5 (0.9-2.9) % Baso % (Auto) 0.4 (0.2-1.0) % Abs Immat Gran (man) 0 (0.00-0.10) K/uL Absolute Neuts (auto) 4.49 (2.20-4.80) K/uL Absolute Lymphs (auto) 2.10 (1.30-2.90) K/uL Absolute Monos (auto) 0.50 (0.30-0.80) K/uL Absolute Eos (auto) 0.10 (0.00-0.20) K/uL Absolute Basos (auto) 0.03 (0.00-0.10) K/uL Immature Gran % 0 (0.00-1.00) % Sodium 141 (132-145) mmol/L Potassium 4.4 (3.3-5.1) mmol/L Chloride 106 (94-110) mmol/L Total Carbon Dioxide 30 (21-34) mmol/L Anion Gap 9.4 (8.0-16.0) mmol/L BUN 27.6 H (3.2-26.9) mg/dL Creatinine 1.79 H (0.50-1.17) mg/dL Est GFR (MDRD) Af Amer 44 A (>60) Est GFR (MDRD) Non-Af 37 A (>60) BUN/Creatinine Ratio 15 (6-20) Glucose 122 H (65-100) mg/dL POC Glucose (mg/dL) 125 (65-110) mg/dL Plasma Lactic Acid Memo (0.4-2.0) mmol/L Calcium 9.0 (8.2-10.0) mg/dL Total Bilirubin 0.66 (0.00-0.99) mg/dL AST 21 (3-39) U/L ALT 25 (13-66) U/L Alkaline Phosphatase 50 L (54-112) U/L Troponin I High Sens (0-76) ng/L Troponin I Hi Sens Del % Troponin I Hi Sens Abs Chng ng/L Total Protein 7.2 (6.1-8.2) g/dL Albumin 3.3 L (3.4-5.0) g/dL Globulin 3.9 (1.5-4.5) g/dL Albumin/Globulin Ratio 0.8 L (1.1-2.5) Urine Color (Yellow) Urine Appearance (Clear) Urine pH Ur Specific [place] (1.015-1.025) Urine Protein (Negative) Urine Ketones (Negative) Urine Blood (Negative) Urine Nitrite (Negative) Urine Bilirubin (Negative) Urine Urobilinogen (Normal-1.0) mg/dL Ur Leukocyte Esterase (Negative) Urine RBC (0 - 2) /hpf Urine WBC (0 - 6) /hpf Urine Glucose (Negative) 12/22/23 12/22/23 12/22/23 Range/Units 17:09 17:09 18:24 WBC (3.6-10.8) K/uL RBC (4.13-5.69) M/uL Hgb (12.4-17.3) g/dL Hct (36.7-50.6) % MCV (80.0-94.0) fL MCH (27.0-31.0) pg MCHC (33.0-37.0) g/dL RDW (11.5-14.5) % Plt Count (148-402) K/uL MPV (7.4-10.4) fL Neut % (Auto) (43.0-65.0) % Lymph % (Auto) (17.0-45.5) % [place] % (Auto) (5.5-11.7) % Eos % (Auto) (0.9-2.9) % Baso % (Auto) (0.2-1.0) % Abs Immat Gran (man) (0.00-0.10) K/uL Absolute Neuts (auto) (2.20-4.80) K/uL Absolute Lymphs (auto) (1.30-2.90) K/uL Absolute Monos (auto) (0.30-0.80) K/uL Absolute Eos (auto) (0.00-0.20) K/uL Absolute Basos (auto) (0.00-0.10) K/uL Immature Gran % (0.00-1.00) % Sodium (132-145) mmol/L Potassium (3.3-5.1) mmol/L Chloride (94-110) mmol/L Total Carbon Dioxide (21-34) mmol/L Anion Gap (8.0-16.0) mmol/L BUN (3.2-26.9) mg/dL Creatinine (0.50-1.17) mg/dL Est GFR (MDRD) Af Amer (>60) Est GFR (MDRD) Non-Af (>60) BUN/Creatinine Ratio (6-20) Glucose (65-100) mg/dL POC Glucose (mg/dL) (65-110) mg/dL Plasma Lactic Acid Memo 1.0 (0.4-2.0) mmol/L Calcium (8.2-10.0) mg/dL Total Bilirubin (0.00-0.99) mg/dL AST (3-39) U/L ALT (13-66) U/L Alkaline Phosphatase (54-112) U/L Troponin I High Sens 6 (0-76) ng/L Troponin I Hi Sens Del % Troponin I Hi Sens Abs Chng ng/L Total Protein (6.1-8.2) g/dL Albumin (3.4-5.0) g/dL Globulin (1.5-4.5) g/dL Albumin/Globulin Ratio (1.1-2.5) Urine Color chloe (Yellow) Urine Appearance Clear (Clear) Urine pH 5 Ur Specific [place] 1.020 (1.015-1.025) Urine Protein 25 A (Negative) Urine Ketones 5 A (Negative) Urine Blood Negative (Negative) Urine Nitrite Negative (Negative) Urine Bilirubin 1 A (Negative) Urine Urobilinogen Normal (Normal-1.0) mg/dL Ur Leukocyte Esterase Negative (Negative) Urine RBC None seen (0 - 2) /hpf Urine WBC None seen (0 - 6) /hpf Urine Glucose Normal (Negative) 12/22/23 12/22/23 12/22/23 Range/Units 19:12 19:12 20:31 WBC (3.6-10.8) K/uL RBC (4.13-5.69) M/uL Hgb (12.4-17.3) g/dL Hct (36.7-50.6) % MCV (80.0-94.0) fL MCH (27.0-31.0) pg MCHC (33.0-37.0) g/dL RDW (11.5-14.5) % Plt Count (148-402) K/uL MPV (7.4-10.4) fL Neut % (Auto) (43.0-65.0) % Lymph % (Auto) (17.0-45.5) % [place] % (Auto) (5.5-11.7) % Eos % (Auto) (0.9-2.9) % Baso % (Auto) (0.2-1.0) % Abs Immat Gran (man) (0.00-0.10) K/uL Absolute Neuts (auto) (2.20-4.80) K/uL Absolute Lymphs (auto) (1.30-2.90) K/uL Absolute Monos (auto) (0.30-0.80) K/uL Absolute Eos (auto) (0.00-0.20) K/uL Absolute Basos (auto) (0.00-0.10) K/uL Immature Gran % (0.00-1.00) % Sodium (132-145) mmol/L Potassium (3.3-5.1) mmol/L Chloride (94-110) mmol/L Total Carbon Dioxide (21-34) mmol/L Anion Gap (8.0-16.0) mmol/L BUN (3.2-26.9) mg/dL Creatinine (0.50-1.17) mg/dL Est GFR (MDRD) Af Amer (>60) Est GFR (MDRD) Non-Af (>60) BUN/Creatinine Ratio (6-20) Glucose (65-100) mg/dL POC Glucose (mg/dL) (65-110) mg/dL Plasma Lactic Acid Memo 1.0 (0.4-2.0) mmol/L Calcium (8.2-10.0) mg/dL Total Bilirubin (0.00-0.99) mg/dL AST (3-39) U/L ALT (13-66) U/L Alkaline Phosphatase (54-112) U/L Troponin I High Sens 6 5 (0-76) ng/L Troponin I Hi Sens Del 17 20 % Troponin I Hi Sens Abs Chng 1 1 ng/L Total Protein (6.1-8.2) g/dL Albumin (3.4-5.0) g/dL Globulin (1.5-4.5) g/dL Albumin/Globulin Ratio (1.1-2.5) Urine Color (Yellow) Urine Appearance (Clear) Urine pH Ur Specific [place] (1.015-1.025) Urine Protein (Negative) Urine Ketones (Negative) Urine Blood (Negative) Urine Nitrite (Negative) Urine Bilirubin (Negative) Urine Urobilinogen (Normal-1.0) mg/dL Ur Leukocyte Esterase (Negative) Urine RBC (0 - 2) /hpf Urine WBC (0 - 6) /hpf Urine Glucose (Negative) Orders: Medications Acetaminophen (Acetaminophen 325 Mg Tablet) 650 mg PO Q4H PRN PRN Reason: MILD PAIN (1-3) Stop: 01/22/24 23:28 Last Admin: 12/22/23 23:33 Dose: 650 mg Documented by: [email or web address] Heparin Sodium (Porcine) (Heparin Sodium,Porcine 5000 Unit/Ml Injection) 5,000 unit SQ Q12H [facility]; Protocol Stop: 01/23/24 06:01 Last Admin: 12/23/23 07:20 Dose: 5,000 unit Documented by: JUVENAL Cosigned by: ANNE-MARIE Hydralazine HCl (Hydralazine Hcl 25 Mg Tablet) 25 mg PO TID [facility] Stop: 01/23/24 06:01 Last Admin: 12/23/23 05:15 Dose: 25 mg Documented by: JUVENAL Sodium Chloride (Sodium Chloride 0.9 % 1000 Ml) 1,000 mls @ 80 mls/hr IV .[id number] PRN PRN Reason: INTRAVENOUS Stop: 01/22/24 20:48 Last Admin: 12/22/23 23:34 Dose: 80 mls/hr Documented by: JUVENAL Pantoprazole Sodium (Pantoprazole Sodium 40 Mg Tablet) 40 mg PO PROTONIX-ACBK [facility] Stop: 01/23/24 06:01 Last Admin: 12/23/23 05:15 Dose: 40 mg Documented by: JUVENAL Discontinued Medications Benzonatate (Benzonatate 100 Mg Capsule) 200 mg PO RTQ6 PRN PRN Reason: Cough Stop: 01/23/24 03:37 Last Admin: 12/23/23 03:41 Dose: 200 mg Documented by: JUVENAL Sodium Chloride (Sodium Chloride 0.9 % 1000 Ml) 500 mls @ 999 mls/hr IV .Q31M [facility] Stop: 12/22/23 19:24 Last Infusion: 12/22/23 21:50 Dose: 0 mls/hr Documented by: [email or web address] Labs 12/22/23 16:42 12-Lead per nursing [RC] STAT 12-Lead per nursing [RC] STAT Accucheck-Nurse Collect [RC] STAT CHEST AP [DIAG] Stat EKG [CAR] Stat 12/22/23 16:53 Capillary Glucose POC [PC] Stat 12/22/23 17:09 CBC w/Auto Differential [HEM] Stat Comprehensive Metabolic Panel [CHM] Stat High Sensitivity Troponin I* [CHM] Stat Lactic Acid (Venous) [CHM] Q2H 12/22/23 17:12 Lactic Acid Nursing Reassessment [RC] Q2HX2 12/22/23 17:51 Straight Cath [RC] ONE 12/22/23 18:24 UA w/micrscopic-reflex culture [URN] Stat 12/22/23 18:26 CT BRAIN WO [CT] Stat 12/22/23 18:54 Normal Saline 0.9% 1000 ml [Sodium Chloride 0.9 % 1000 ml] 500 ml IV 999 mls/hr 12/22/23 19:12 High Sensitivity Troponin I* [CHM] Routine Lactic Acid (Venous) [CHM] Q2H 12/22/23 20:31 High Sensitivity Troponin I* [CHM] Routine 12/22/23 20:40 Admission Order Routine EKG as Needed [RC] PRN Notify Physician of [RC] PRN Resuscitation Status Order Routine - Radiology Data IMPRESSIONS Chest X-Ray 12/22/23 16:42 IMPRESSION: No acute process. 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 No evidence of acute intracranial process. 2. 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 3. Prominence of the sulci and/or CSF spaces suggests a degree of cerebral atrophy. - Medical Decision Making ED Course: 83-year-old male was brought to ER by squad as patient was disoriented earlier. On arrival, patient is alert oriented x 4. Vitals have been stable. The lab work showed normal white blood cell count with normal hemoglobin and hematocrit. The electrolytes were within normal range. Patient has history of chronic kidney disease, creatinine is 1.79 with GFR of 37. Reviewed previous labs, patient is close to his baseline. The EKG was done which was negative, what acute ST-T wave changes. Troponin x 1 is negative. The staff had mentioned that patient had been smelling of urine. Urinalysis pending. Prior external records reviewed: Outpatient records The patient has received a medical screening examination: within reasonable clinical confidence has been stabilized in the ED. Reviewed pertinent findings from resulted labs: Imaging : Interpretation by radiology and independently interpreted by me. EKG interpreted by myself and discussed with patient. Full EKG read found on [employer]Server Presenting clinical condition necessitates admission or observation consideration: no Independent Hx provided by: Patient Med Rx considered but ultimately not given: [ Steroids/Antibiotics/Lasix ] Social determinant that may affects healthcare: None Disposition: Patient was signed out to incoming physician Dr. Ojeda for furthermanagement and disposition. ED Discharge Summary - Discharge Data Clinical Impression: Acute kidney injury, Dizziness Condition: Good Disposition: ADMITTED INPATIENT Home Medications: Ambulatory Orders Medication Instructions Recorded Fenofibrate Nanocrystallized 145 mg PO DAILY 12/08/17 [Fenofibrate] Finasteride 5 mg PO DAILY 12/08/17 Pravastatin Sodium 80 mg PO QPM 12/08/17 Aspirin [Aspirin 81 mg Chew Tablet] 81 mg PO DAILY 10/13/20 Donepezil HCl [Aricept 5 mg Tablet] 5 mg PO QPM 10/13/20 Tamsulosin HCl [Flomax 0.4 mg 0.4 mg PO QPM 10/13/20 Capsule] Divalproex Sodium [Depakote] 125 mg PO BID 08/11/21 Loperamide HCl [Loperamide] 2 mg PO Q6H PRN 08/11/21 Acetaminophen [Acetaminophen Extra 500 mg PO BID 06/01/23 Strength] Cimetidine 400 mg PO BID 06/01/23 Dexlansoprazole [Dexilant] 60 mg PO DAILY 06/01/23 Hydralazine HCl 25 mg PO TID 30 Days #90 tablet 06/02/23 Dextran 70/Hypromellose/Pf 1 drop BOTHEYES BID PRN 12/22/23 [Genteal Tears 0.1%-0.3% Drop] Guaifenesin [Mucinex 600 mg Tablet] 600 mg PO BID 12/22/23 Menthol [Biofreeze] 89 ml TP QID PRN 12/22/23 Time Seen by Provider: 12/22/23 16:41 Electronically Generated By:DENIZ MCPHERSON MD Generated Date/Time: 12/22/23 1716 Electronically Signed By: <Electronically signed by DENIZ MCPHERSON MD> 12/23/23 0820 Co Signed Electronically By: Co Signed Date/Time: CC: MONTRELL EDWARD MD [facility] Work Phone: [phone] Discharge summary Author JASMIN OJEDA [facility] December 23, 2023 4:48am Note Date/Time December 22, 2023 8:37 pm [facility] [address] [place] [address] HEALTH INFORMATION MANAGEMENT EMERGENCY DEPARTMENT : [id number] Signed Patient: WILEY MEEK Acct:[id number] MRUN: [id number] : 1940 Sex: M Loc: 4TH FLOOR ADM Date: 12/22/23 Room/Bed: 431-B DISC Date: ED PMH/Social HX/Family HX - Respiratory Hx Respiratory Disorders: Yes (reviewed ) PMH--Respiratory: Asthma, Bronchitis - Cardiovascular Hx Cardiac Disorders: Yes PMH--Cardiovascular: HTN, Hypercholesterolemia - Neurological Hx Neurological Disorder: Yes PMH--Neurological: Dementia, Memory Loss - Endocrine Hx Endocrine Disorders: Yes PMH--Endocrine History: Diabetes Type 2 - Gastrointestinal Hx Gastrointestinal Disorders: Yes PMH--Gastrointestinal: GERD, Hernia Other GI PMH: heart burn Past Surgical Hx--GI: Appendectomy - Genitourinary Hx Genitourinary Disorders: Yes PMH--Genitourinary: UTI - Musculoskeletal Hx Musculoskeletal Disorders: No PMH--Musculoskeletal: Arthritis - Reproductive Hx Reproductive Disorders: No - Psychological Hx Psychosocial Problems: Yes PMH--Psychological & Treatments: Depression - HEENT Hx Ear, Nose Throat Disorders: Yes PMH--Ears Nose and Throat: Cataracts, Farsighted Past Surgical Hx-ENT: Cataract Removal-Right, Cataract Removal-Left - Cancer Hx Cancer: No - Other Other PMH: Chicken Pox, Measles, Mumps - Social History Highest Educational Level: High School Able to Read: Yes Able to Write: Yes Smoking Status: Never Smoked Hx Chewing Tobacco Use: No Alcohol Use: Never Any recreational drug use reported?: No Feels Threatened In Home Environment: No Feels Threatened In a Relationship: No - Family PMH Father Living Status: Cardiac: Cardiac Disorder(s), Myocardial Infarction - Sweet/Gender ID What is your current Gender Identity? Choose all that Apply: Male Define your Sexual Orientation?: Straight/Heterosexual - Crane-Suicide Severity Rating Scale 1) Wish to be :: No 2) Suicidal Thoughts:: No 6) Suicidal Behavior Question (A): LIFETIME: No 6) Suicidal Behavior Question (B): PAST 3 MONTHS: No ED Visit Note - Lab Data Result diagrams: 12/22/23 17:09 12/22/23 17:09 Lab Results 12/22/23 12/22/23 12/22/23 Range/Units 16:53 17:09 17:09 WBC 7.2 (3.6-10.8) K/uL RBC 4.06 L (4.13-5.69) M/uL Hgb 12.7 (12.4-17.3) g/dL Hct 40.4 (36.7-50.6) % MCV 99.5 H (80.0-94.0) fL MCH 31.3 H (27.0-31.0) pg MCHC 31.4 L (33.0-37.0) g/dL RDW 13.7 (11.5-14.5) % Plt Count 289 (148-402) K/uL MPV 8.6 (7.4-10.4) fL Neut % (Auto) 62.2 (43.0-65.0) % Lymph % (Auto) 29.0 (17.0-45.5) % [place] % (Auto) 6.9 (5.5-11.7) % Eos % (Auto) 1.5 (0.9-2.9) % Baso % (Auto) 0.4 (0.2-1.0) % Abs Immat Gran (man) 0 (0.00-0.10) K/uL Absolute Neuts (auto) 4.49 (2.20-4.80) K/uL Absolute Lymphs (auto) 2.10 (1.30-2.90) K/uL Absolute Monos (auto) 0.50 (0.30-0.80) K/uL Absolute Eos (auto) 0.10 (0.00-0.20) K/uL Absolute Basos (auto) 0.03 (0.00-0.10) K/uL Immature Gran % 0 (0.00-1.00) % Sodium 141 (132-145) mmol/L Potassium 4.4 (3.3-5.1) mmol/L Chloride 106 (94-110) mmol/L Total Carbon Dioxide 30 (21-34) mmol/L Anion Gap 9.4 (8.0-16.0) mmol/L BUN 27.6 H (3.2-26.9) mg/dL Creatinine 1.79 H (0.50-1.17) mg/dL Est GFR (MDRD) Af Amer 44 A (>60) Est GFR (MDRD) Non-Af 37 A (>60) BUN/Creatinine Ratio 15 (6-20) Glucose 122 H (65-100) mg/dL POC Glucose (mg/dL) 125 (65-110) mg/dL Plasma Lactic Acid Memo (0.4-2.0) mmol/L Calcium 9.0 (8.2-10.0) mg/dL Total Bilirubin 0.66 (0.00-0.99) mg/dL AST 21 (3-39) U/L ALT 25 (13-66) U/L Alkaline Phosphatase 50 L (54-112) U/L Troponin I High Sens (0-76) ng/L Troponin I Hi Sens Del % Troponin I Hi Sens Abs Chng ng/L Total Protein 7.2 (6.1-8.2) g/dL Albumin 3.3 L (3.4-5.0) g/dL Globulin 3.9 (1.5-4.5) g/dL Albumin/Globulin Ratio 0.8 L (1.1-2.5) Urine Color (Yellow) Urine Appearance (Clear) Urine pH Ur Specific [place] (1.015-1.025) Urine Protein (Negative) Urine Ketones (Negative) Urine Blood (Negative) Urine Nitrite (Negative) Urine Bilirubin (Negative) Urine Urobilinogen (Normal-1.0) mg/dL Ur Leukocyte Esterase (Negative) Urine Glucose (Negative) 12/22/23 12/22/23 12/22/23 Range/Units 17:09 17:09 18:24 WBC (3.6-10.8) K/uL RBC (4.13-5.69) M/uL Hgb (12.4-17.3) g/dL Hct (36.7-50.6) % MCV (80.0-94.0) fL MCH (27.0-31.0) pg MCHC (33.0-37.0) g/dL RDW (11.5-14.5) % Plt Count (148-402) K/uL MPV (7.4-10.4) fL Neut % (Auto) (43.0-65.0) % Lymph % (Auto) (17.0-45.5) % [place]ie % (Auto) (5.5-11.7) % Eos % (Auto) (0.9-2.9) % Baso % (Auto) (0.2-1.0) % Abs Immat Gran (man) (0.00-0.10) K/uL Absolute Neuts (auto) (2.20-4.80) K/uL Absolute Lymphs (auto) (1.30-2.90) K/uL Absolute Monos (auto) (0.30-0.80) K/uL Absolute Eos (auto) (0.00-0.20) K/uL Absolute Basos (auto) (0.00-0.10) K/uL Immature Gran % (0.00-1.00) % Sodium (132-145) mmol/L Potassium (3.3-5.1) mmol/L Chloride (94-110) mmol/L Total Carbon Dioxide (21-34) mmol/L Anion Gap (8.0-16.0) mmol/L BUN (3.2-26.9) mg/dL Creatinine (0.50-1.17) mg/dL Est GFR (MDRD) Af Amer (>60) Est GFR (MDRD) Non-Af (>60) BUN/Creatinine Ratio (6-20) Glucose (65-100) mg/dL POC Glucose (mg/dL) (65-110) mg/dL Plasma Lactic Acid Memo 1.0 (0.4-2.0) mmol/L Calcium (8.2-10.0) mg/dL Total Bilirubin (0.00-0.99) mg/dL AST (3-39) U/L ALT (13-66) U/L Alkaline Phosphatase (54-112) U/L Troponin I High Sens 6 (0-76) ng/L Troponin I Hi Sens Del % Troponin I Hi Sens Abs Chng ng/L Total Protein (6.1-8.2) g/dL Albumin (3.4-5.0) g/dL Globulin (1.5-4.5) g/dL Albumin/Globulin Ratio (1.1-2.5) Urine Color chloe (Yellow) Urine Appearance Clear (Clear) Urine pH 5 Ur Specific Larimore 1.020 (1.015-1.025) Urine Protein 25 A (Negative) Urine Ketones 5 A (Negative) Urine Blood Negative (Negative) Urine Nitrite Negative (Negative) Urine Bilirubin 1 A (Negative) Urine Urobilinogen Normal (Normal-1.0) mg/dL Ur Leukocyte Esterase Negative (Negative) Urine Glucose Normal (Negative) 12/22/23 Range/Units 19:12 WBC (3.6-10.8) K/uL RBC (4.13-5.69) M/uL Hgb (12.4-17.3) g/dL Hct (36.7-50.6) % MCV (80.0-94.0) fL MCH (27.0-31.0) pg MCHC (33.0-37.0) g/dL RDW (11.5-14.5) % Plt Count (148-402) K/uL MPV (7.4-10.4) fL Neut % (Auto) (43.0-65.0) % Lymph % (Auto) (17.0-45.5) % [place]ie % (Auto) (5.5-11.7) % Eos % (Auto) (0.9-2.9) % Baso % (Auto) (0.2-1.0) % Abs Immat Gran (man) (0.00-0.10) K/uL Absolute Neuts (auto) (2.20-4.80) K/uL Absolute Lymphs (auto) (1.30-2.90) K/uL Absolute Monos (auto) (0.30-0.80) K/uL Absolute Eos (auto) (0.00-0.20) K/uL Absolute Basos (auto) (0.00-0.10) K/uL Immature Gran % (0.00-1.00) % Sodium (132-145) mmol/L Potassium (3.3-5.1) mmol/L Chloride (94-110) mmol/L Total Carbon Dioxide (21-34) mmol/L Anion Gap (8.0-16.0) mmol/L BUN (3.2-26.9) mg/dL Creatinine (0.50-1.17) mg/dL Est GFR (MDRD) Af Amer (>60) Est GFR (MDRD) Non-Af (>60) BUN/Creatinine Ratio (6-20) Glucose (65-100) mg/dL POC Glucose (mg/dL) (65-110) mg/dL Plasma Lactic Acid Memo (0.4-2.0) mmol/L Calcium (8.2-10.0) mg/dL Total Bilirubin (0.00-0.99) mg/dL AST (3-39) U/L ALT (13-66) U/L Alkaline Phosphatase (54-112) U/L Troponin I High Sens 6 (0-76) ng/L Troponin I Hi Sens Del 0 % Troponin I Hi Sens Abs Chng 0 ng/L Total Protein (6.1-8.2) g/dL Albumin (3.4-5.0) g/dL Globulin (1.5-4.5) g/dL Albumin/Globulin Ratio (1.1-2.5) Urine Color (Yellow) Urine Appearance (Clear) Urine pH Ur Specific Lar[place] (1.015-1.025) Urine Protein (Negative) Urine Ketones (Negative) Urine Blood (Negative) Urine Nitrite (Negative) Urine Bilirubin (Negative) Urine Urobilinogen (Normal-1.0) mg/dL Ur Leukocyte Esterase (Negative) Urine Glucose (Negative) Orders: Medications Discontinued Medications Sodium Chloride (Sodium Chloride 0.9 % 1000 Ml) 500 mls @ 999 mls/hr IV .Q31M STA Stop: 12/22/23 19:24 Last Admin: 12/22/23 19:30 Dose: 999 mls/hr Documented by: [email or web address] Comments: Used 500 ml bag Labs 12/22/23 16:42 12-Lead per nursing [RC] STAT 12-Lead per nursing [RC] STAT Accucheck-Nurse Collect [RC] STAT CHEST AP [DIAG] Stat EKG [CAR] Stat 12/22/23 16:53 Capillary Glucose POC [PC] Stat 12/22/23 17:09 CBC w/Auto Differential [HEM] Stat Comprehensive Metabolic Panel [CHM] Stat High Sensitivity Troponin I* [CHM] Stat Lactic Acid (Venous) [CHM] Q2H 12/22/23 17:12 Lactic Acid Nursing Reassessment [RC] Q2HX2 12/22/23 17:51 Straight Cath [RC] ONE 12/22/23 18:18 UA w/micrscopic-reflex culture [URN] Stat 12/22/23 18:26 CT BRAIN WO [CT] Stat 12/22/23 18:45 Lactic Acid (Venous) [CHM] Q2H 12/22/23 18:54 Normal Saline 0.9% 1000 ml [Sodium Chloride 0.9 % 1000 ml] 500 ml IV 999 mls/hr 12/22/23 19:12 High Sensitivity Troponin I* [CHM] Routine 12/22/23 20:42 High Sensitivity Troponin I* [CHM] Routine - Radiology Data IMPRESSIONS Chest X-Ray 12/22/23 16:42 IMPRESSION: No acute process. 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 No evidence of acute intracranial process. 2. 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 3. Prominence of the sulci and/or CSF spaces suggests a degree of cerebral atrophy. - Medical Decision Making MDM ED Course: Patient resting comfortably, interviewed multiple times, awake and alert, does not have any finding of any focal neurologic deficit, the patient is otherwise well-appearing, states that he has not been feeling well over the course of the last several days with some cough and cold, states that he knows that he needs to have increased oral intake but has not been feeling well and his oral intake is dropped, patient does complain of some diffuse dizziness that started approximately 1 to 2 days ago and states it is worse whenever he stands up and walks around, patient does live at assisted living. Patient is unclear whether he is still on Lasix or not, after reviewing external records patient was admitted on June 01, 2023 and was apparently taken off of Lasix at that time. Echocardiogram at that point also showed his ejection fraction from 60 to 65% with mild aortic regurgitation and moderate tricuspid regurgitation. Patient also has significant history of paraesophageal hiatal hernia and severe reflux. Patient CT scan of his head was also independently interpreted and not shown to have any finding of any significant intracranial hemorrhage or skull fracture. Patient denies any falls Patient's urinalysis was also interpreted by myself does not have any finding of any significant acute urinary tract infection Chronic conditions that affect care include Acute kidney injury chronic secondary to chronic kidney disease Dehydration, poor appetite Hyperlipidemia Type 2 diabetes Anemia BPH Mood disorder GERD Generalized weakness Prior external records reviewed: Outpatient records The patient has received a medical screening examination: within reasonable clinical confidence has been stabilized in the ED. Reviewed pertinent findings from resulted labs: cratitine of 1.79 with a GFR of 44 Imaging: Interpretation by radiology and independently reviewed by me. Presenting clinical condition necessitates admission or observation consideration: Yes Independent Hx provided by: [ Patient Med Rx considered but ultimately not given: abx Dx tests considered but ultimately not ordered: u/s Social determinant that may affects healthcare: Pharmacy not open at time of discharge and lack of primary social support group Pt?s case/impression summarized and discussed with: [ Patient Likely Dx given clinical picture: dehydration, zay Although not an exhaustive list of Differential Diagnosis (though considered), patient?s HPI, PE, and other findings are not suggestive of: Acute tubular necrosis, acute renal failure ADMIT: Patient at the time of disposition was stable however in serious and/or critical condition from their presenting complaint thus requiring admission. The patient and/or family was given the opportunity to ask questions prior to admission, understood my verbal discussion of the plans for treatment, expected course, and the need for timely follow up as directed. Condition: Stable Disposition: Admit ED Discharge Summary - Discharge Data Clinical Impression: Acute kidney injury, Dizziness Condition: Good Disposition: ADMITTED INPATIENT Referrals: MONTRELL EDWARD MD [Primary Care Provider] - Home Medications: Ambulatory Orders Medication Instructions Recorded Fenofibrate Nanocrystallized 145 mg PO DAILY 12/08/17 [Fenofibrate] Finasteride 5 mg PO DAILY 12/08/17 Pravastatin Sodium 80 mg PO QPM 12/08/17 Aspirin [Aspirin 81 mg Chew Tablet] 81 mg PO DAILY 10/13/20 Cholecalciferol (Vitamin D3) 2,000 units PO DAILY 10/13/20 [Vitamin D3 1000 Unit Tablet] Donepezil HCl [Aricept 5 mg Tablet] 5 mg PO QPM 10/13/20 Tamsulosin HCl [Flomax 0.4 mg 0.4 mg PO QPM 10/13/20 Capsule] Cyanocobalamin (Vitamin B-12) 500 mcg PO DAILY 08/11/21 [Vitamin B-12] Divalproex Sodium [Depakote] 125 mg PO BID 08/11/21 Lactobacillus Acidophilus 100 mg PO DAILY 08/11/21 [Acidophilus] Loperamide HCl [Loperamide] 2 mg PO Q6H PRN 08/11/21 Acetaminophen [Acetaminophen Extra 500 mg PO BID 06/01/23 Strength] Cimetidine 400 mg PO BID 06/01/23 Dexlansoprazole [Dexilant] 60 mg PO DAILY 06/01/23 Hydralazine HCl 25 mg PO TID 30 Days #90 tablet 06/02/23 Time Seen by Provider: 12/22/23 16:41 Electronically Generated By:JASMIN OJEDA DO Generated Date/Time: 12/22/232034 Electronically Signed By: <Electronically signed by JASMIN OJEDA DO> 12/23/238 Co Signed Electronically By: Co Signed Date/Time: CC: MONTRELL EDWARD MD [facility] Work Phone: 1(280) 794-251908-18-2023 Discharge summary Author MELISA CAREY [facility] June 02, 2023 4:03pm Note Date/Time June 02, 2023 4: 03pm [facility] [address] [place] [id number] HEALTH INFORMATION MANAGEMENT DISCHARGE SUMMARY : [id number] Signed Patient: WILEY MEEK Acct:[id number] MRUN: [id number] : 1940 Sex: M Loc: 4TH FLOOR ADM Date: 06/01/23 Room/Bed: 428-B DISC Date: - Hospital Course Events Since Admission: WILEY MEEK was admitted to MEDICAL SURGICAL service into room 428 on 06/01/23 at 00:40 from Emergency Dept for complaints of ACUTE KIDNEY INJURY, WEAKNESS. Laboratory and diagnostic testing has been reviewed. The patient wasseen, evaluated and found to be appropriate for discharge. Reason For Visit: ACUTE KIDNEY INJURY, WEAKNESS Hospital Course: Patient is 83-year-old male who presented to [facility] ED on 05/31/2023 for weakness associated with lightheadedness. Lightheadedness is worse when he gets up. Patient has not been eating very well recently. Also has ongoing work-up for hiatal hernia, describing sweating whenever he eats. Patient also takes Lasix at home. In the ED, patient received with BP 136/67, HR 90, RR 18, O2 sat 96%, temperature 97.5. Hemoglobin 12.2. Creatinine 2.14. Glucose 221. Alk phos 43. Urinalysis negative for nitrite and blood. Chest x-ray negative. Patient admitted for acute kidney injury. He was orthostatic positive. He was given fluids. ultrasound of the kidneys negative for hydronephrosis. His creatinine and blood pressure slowly improved with hydration. PT was consulted. Cardiology was also consulted. Echo showed EF 60 to 65%, aortic regurgitation mild, mitral regurgitation mild, tricuspid regurgitation mild to moderate. Ascending aorta is mildly dilated 37 mm. Given patient is on the hypovolemic toeuvolemic side, it was recommended to discontinue Lasix. Regarding patient's poor appetite and trouble with hiatal hernia, upper GI showed large paraesophageal hiatal hernia with severe reflux as described. Barium swallow showed large paraesophageal hiatal hernia with marked gastroesophageal reflux. He was started on Protonix. On 06/02/2023, patient's lightheadedness and orthostatic blood pressure had resolved. He was discharged in a stable condition. Daughter was at bedside and extensively advised. Discharge time more than 30 minutes Hospital Treatment: 06/02/23 04:40 06/02/23 04:40 Laboratory Results - last 24 hr 06/02/23 11:37: POC Glucose (mg/dL) 107 06/02/23 08:08: POC Glucose (mg/dL) 104 06/02/23 04:40: Neutrophils (Manual) 53, Lymphocytes (Manual) 38, Monocytes (Manual) 7, Eosinophils (Manual) 2, Basophils (Manual) 0 06/02/23 04:40: TSH 3rd Generation 2.622 06/02/23 04:40: Troponin I High Sens 9 06/02/23 04:40: WBC 5.5, RBC 3.64 L, Hgb 11.3 L, Hct 36.3 L, MCV 99.7 H, MCH 31.0, MCHC 31.1 L, RDW 14.2, Plt Count 223, MPV 9.7, Neut % (Auto) 53.0, Lymph %(Auto) 38.0, [place] % (Auto) 7.0, Eos % (Auto) 2.0, Baso % (Auto) 0 L, Abs Immat Gran (man) 0, Absolute Neuts (auto) 2.92, Absolute Lymphs (auto) 2.10, Absolute Monos (auto) 0.40, Absolute Eos (auto) 0.11, Absolute Basos (auto) 0, Immature Gran % 0 06/02/23 04:40: Sodium 142, Potassium 3.9, Chloride 109, Total Carbon Dioxide 26, Anion Gap 10.9, BUN 25.6, Creatinine 1.55 H, Est GFR (MDRD) Af Amer 52 A, Est GFR (MDRD) Non-Af 43 A, BUN/Creatinine Ratio 17, Glucose 102 H, Calcium 8.3 06/01/23 22:18: POC Glucose (mg/dL) 102 06/01/23 17:01: POC Glucose (mg/dL) 100 06/01/23 04:25: Hemoglobin A1c 6.5 H Intake & Output 05/30/23 05/31/23 06/01/23 08/18/23 23:59 23:59 23:59 23:59 Intake Total 3035 1240 Output Total 400 Balance 2635 1240 Weight 200 lb 192 lb 8 oz 191 lb 5 oz See radiology reports in electronic medical record. - Discharge Information Discharge Diagnosis:: Assessment. 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 Lightheadedness, likely secondary to orthostatic hypotension. Dehydration, Poorappetite. Sweating while eating, ongoing work up for hiatal hernia. L large hiatal hernia with compressing L lower lung atelectasis. Heart failure ruled out. TR mild to moderate. HLD. T2DM, diet controlled. Anemia, macrocytic, stable. BPH. Mood disorder. GERD. 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 Lightheadedness, likely secondary to orthostatic hypotension Dehydration, Poor appetite Sweating while eating, ongoing work up for hiatal hernia L large hiatal hernia with compressing L lower lung atelectasis Heart failure ruled out TR mild to moderate HLD T2DM, diet controlled Anemia, macrocytic, stable BPH Mood disorder GERD Generalized weakness, age related physical debility Plan of Treatment: Plan Discontinue Lasix Take hydralazine from 25 mg 3 times daily SCHEDULED Resume dexlansoprazole, cimetidine Follow up with Surgery outpatient Blood work BMP in 7 days Post hospital follow up with pcp, for bp check - Discharge Instructions Referrals: XIAO VALENTINE [Primary Care Provider] - Prescriptions & home med reconciliation (Convert): Hydralazine HCl 25 mg PO TID 30 Days #90 tablet Other Amb Orders: Basic Metabolic Panel [CHM] Time Frame: 7 Days, Location: Determined By Patient Special Instructions: Discontinue Lasix. Take hydralazine from 25 mg 3 times daily SCHEDULED. Resume dexlansoprazole, cimetidine. Follow up with Surgery outpatient. Blood work BMP in 7 days Activity Level For Discharge:: As Tolerated Discharge Diet: Low Sodium Weight Bearing Status: Weight Bearing as Tolerated Visit Coding - VISIT CODING Date of Service: 06/02/23 Billing Provider:: MELISA CAREY Common Visit Codes: 79827-FAL/OBS DISCH DAY >30min Physical Exam Vital Signs: Vital Signs (72 hours) 0805/31/23 05/31/23 22:03 22:53 23:00 Temperature 97.5 F L Pulse Rate 88 88 Pulse Rate [ Lying] Pulse Rate [ 90 Pulse Ox] Pulse Rate [ Sitting] Pulse Rate [ Standing] Respiratory 18 Rate Blood Pressure 136/67 Blood Pressure [Right Arm Lying] Blood Pressure [Right Arm Sitting] Blood Pressure [Right Arm Standing] Blood Pressure 136/67 [Right Arm] Blood Pressure [Sitting] Blood Pressure [Standing] O2 Sat by Pulse 96 94 L 95 Oximetry(%) 05/31/23 05/31/23 06/01/23 23:01 23:13 00:00 Temperature Pulse Rate 88 98 83 Pulse Rate [ Lying] Pulse Rate [ Pulse Ox] Pulse Rate [ Sitting] Pulse Rate [ Standing] Respiratory Rate Blood Pressure 105/57 L 105/65 Blood Pressure [Right Arm Lying] Blood Pressure [Right Arm Sitting] Blood Pressure [Right Arm Standing] Blood Pressure [Right Arm] Blood Pressure [Sitting] Blood Pressure [Standing] O2 Sat by Pulse 95 95 96 Oximetry(%) 06/01/23 06/01/23 06/01/23 00:10 00:20 00:30 Temperature Pulse Rate 92 91 84 Pulse Rate [ Lying] Pulse Rate [ Pulse Ox] Pulse Rate [ Sitting] Pulse Rate [ Standing] Respiratory Rate Blood Pressure Blood Pressure [Right Arm Lying] Blood Pressure [Right Arm Sitting] Blood Pressure [Right Arm Standing] Blood Pressure [Right Arm] Blood Pressure [Sitting] Blood Pressure [Standing] O2 Sat by Pulse 97 97 96 Oximetry(%) 06/01/23 06/01/23 06/01/23 00:40 00:50 00:55 Temperature Pulse Rate 85 84 82 Pulse Rate [ Lying] Pulse Rate [ Pulse Ox] Pulse Rate [ Sitting] Pulse Rate [ Standing] Respiratory Rate Blood Pressure 108/64 Blood Pressure [Right Arm Lying] Blood Pressure [Right Arm Sitting] Blood Pressure [Right Arm Standing] Blood Pressure [Right Arm] Blood Pressure [Sitting] Blood Pressure [Standing] O2 Sat by Pulse 96 95 93 L Oximetry(%) 06/01/23 06/01/23 06/01/23 01:00 01:09 01:20 Temperature 97.5 F L Pulse Rate 78 78 87 Pulse Rate [ Lying] Pulse Rate [ 87 Pulse Ox] Pulse Rate [ Sitting] Pulse Rate [ Standing] Respiratory 18 Rate Blood Pressure 112/77 129/89 Blood Pressure [Right Arm Lying] Blood Pressure [Right Arm Sitting] Blood Pressure [Right Arm Standing] Blood Pressure 129/89 [Right Arm] Blood Pressure [Sitting] Blood Pressure [Standing] O2 Sat by Pulse 94 L 94 L 96 Oximetry(%) 06/01/23 06/01/23 06/01/23 06:03 06:16 09:05 Temperature 98.0 F 98.0 F Pulse Rate 84 89 Pulse Rate [ 68 Lying] Pulse Rate [ Pulse Ox] Pulse Rate [ 75 Sitting] Pulse Rate [ 86 Standing] Respiratory 18 Rate Blood Pressure 154/87 H 145/73 H Blood Pressure [Right Arm Lying] Blood Pressure [Right Arm Sitting] Blood Pressure [Right Arm Standing] Blood Pressure 154/87 H [Right Arm] Blood Pressure 159/90 H [Sitting] Blood Pressure 128/92 H [Standing] O2 Sat by Pulse 96 97 Oximetry(%) 06/01/23 06/01/23 06/01/23 10:00 11:39 18:00 Temperature 97.7 F Pulse Rate 81 Pulse Rate [ 78 74 Lying] Pulse Rate [ Pulse Ox] Pulse Rate [ 76 89 Sitting] Pulse Rate [ 85 86 Standing] Respiratory 12 Rate Blood Pressure 178/98 H Blood Pressure [Right Arm Lying] Blood Pressure [Right Arm Sitting] Blood Pressure [Right Arm Standing] Blood Pressure 138/82 [Right Arm] Blood Pressure 139/81 125/89 [Sitting] Blood Pressure 107/64 128/73 [Standing] O2 Sat by Pulse 97 Oximetry(%) 06/01/23 06/01/23 06/02/23 20:20 23:47 03:53 Temperature 97.6 F L 97.6 F L 97.8 F Pulse Rate 71 58 L Pulse Rate [ Lying] Pulse Rate [ Pulse Ox] Pulse Rate [ 73 Sitting] Pulse Rate [ Standing] Respiratory 18 19 18 Rate Blood Pressure 135/73 139/82 Blood Pressure [Right Arm Lying] Blood Pressure [Right Arm Sitting] Blood Pressure [Right Arm Standing] Blood Pressure 138/85 [Right Arm] Blood Pressure [Sitting] Blood Pressure [Standing] O2 Sat by Pulse 97 94 L 95 Oximetry(%) 06/02/23 06/02/23 06/02/23 08:13 10:20 14:00 Temperature 97.4 F L 97.9 F Pulse Rate 75 66 Pulse Rate [ 83 Lying] Pulse Rate [ Pulse Ox] Pulse Rate [ 83 Sitting] Pulse Rate [ 93 Standing] Respiratory 19 14 Rate Blood Pressure 151/92 H 151/90 H Blood Pressure 141/73 H [Right Arm Lying] Blood Pressure 134/80 [Right Arm Sitting] Blood Pressure 132/65 [Right Arm Standing] Blood Pressure [Right Arm] Blood Pressure [Sitting] Blood Pressure [Standing] O2 Sat by Pulse 96 96 Oximetry(%) 06/02/23 06/02/23 15:43 15:44 Temperature 97.5 F L Pulse Rate 70 72 Pulse Rate [ Lying] Pulse Rate [ Pulse Ox] Pulse Rate [ Sitting] Pulse Rate [ Standing] Respiratory 18 Rate Blood Pressure 152/118 H 169/93 H Blood Pressure [Right Arm Lying] Blood Pressure [Right Arm Sitting] Blood Pressure [Right Arm Standing] Blood Pressure [Right Arm] Blood Pressure [Sitting] Blood Pressure [Standing] O2 Sat by Pulse 97 99 Oximetry(%) General: Yes: Alert, Oriented (X3), Cooperative/Pleasant, No acute distress HEENT: Yes: Atraumatic, PERRLA, EOMI, Mucous membr. moist/pink Lungs: Yes: Clear to auscultation, Normal air movement, Unlabored. No: Shortness Of Breath Scale Cardiovascular: Yes: Regular rate, Normal S2, Normal S1. No: No murmurs, Gallops, Rubs Abdomen: Yes: Bowel Sounds X4, Soft, No Tenderness, Flatus (Present), Bowel Pattern. No: Hepatospenomegaly, Masses, Nausea/Vomiting, Emesis Present, Constipation, Diarrhea Extremities: Yes: Normal pulses. No: Clubbing, Cyanosis, Edema, No tenderness/swelling, Mottling noted Skin: No: Rashes, Skin Breakdown, Significant lesions, Open Wound Present, Skin Tear Neurological: Yes: Speech Clear, Normal tone, Sensation intact, Cognitive Ability Intact Psych/Mental Status: Yes: Mental status NL, Mood Appropriate. No: Depressed/Withdrawn, Hallucinations Genitourinary/Rectal: Yes: Deferred-Not Relevant Breast Exam: Yes: Deferred-Not Relevant Electronically Generated By:MELISA CAREY MD Generated Date/Time: 06/02/23 1602 Electronically Signed By: <Electronically signed by MELISA CAREY MD> 06/02/23 1603 Co Signed Electronically By: Co Signed Date/Time: CC: XIAO VALENTINE ; VENANCIO LU [facility] Work Phone: 1(290) 260-468508-18-2023 Evaluation note* Author MELISA CAREY [facility] Authored June 02, 2023 4: 02pm Assessment ZAY secondary to ATN on ckd stage stage 3 Lightheadedness, likely secondary to orthostatic hypotension Dehydration, Poor appetite Sweating while eating, ongoing work up for hiatal hernia L large hiatal hernia with compressing L lower lung atelectasis Heart failure ruled out TR mild to moderate HLD T2DM, diet controlled Anemia, macrocytic, stable BPH Mood disorder GERD Generalized weakness, age related physical debility [facility] Work Phone: [phone]) 878-722408-18-2023 Consult note Author VENANCIO JIMÉNEZ [facility] June 02, 2023 10:52am Note Date/Time June 02, 2023 10 :52am [facility] [address] [place] [address] HEALTH INFORMATION MANAGEMENT CONSULTATION : [id number] Signed Patient: WILEY MEEK Acct:[id number] MRUN: [id number] : 1940 Sex: M Loc: 4TH FLOOR ADM Date: 06/01/23 Room/Bed: 428-B DISC Date: CARDIOLOGY CONSULT THIS DOCUMENT HAS BEEN CREATED USING VOICE RECOGNITION SOFTWARE AND MAY CONTAIN GRAMMATICAL, SYNTAX, AND TYPOGRAPHICAL ERRORS. Admission Date: 06/01/23 00:40 Current Date: 06/02/23 Admission Diagnosis: Weakness, ZAY Chief Complaint: CHF Referring Physician: Hospitalist HPI: Patient is a 83-year-old male with past medical history of hypertension, hyperlipidemia, diabetes mellitus, dementia, asthma presented to [facility] with complaints of generalized weakness for past few days. Patient oral intake has been poor. Denies any fevers chills. Denies any chest pain or shortness of breath or leg swelling. Patient denies any prior cardiac history. EKG performed in the ER showed sinus rhythm with right bundle branch block, low QRS voltage in precordial leads, nonspecific T wave changes. Labs reviewed. Creatinine was 2.1 on admission. With IV fluids creatinine improved to 1.55. Potassium 3.9. High-sensitivity troponin normal x3. proBNP not done. Chest x-ray did not show any acute finding. Echo pending. Patient has questionable history of heart failure prior to admission. Patient's home medication includedLasix hydralazine. Allergies/Adverse Reactions: morphine Allergy (Verified 08/25/21 16:07) Sulfa (Sulfonamide Antibiotics) Allergy (Verified 08/25/21 16:07) Last Vital Signs Temp 97.8 F 06/02/23 03:53 Pulse 58 L 06/02/23 03:53 Resp 18 06/02/23 03:53 BP 139/82 06/02/23 03:53 Pulse Ox 95 06/02/23 03:53 FiO2 Laboratory Last Values WBC 5.5 K/uL (3.6-10.8) 06/02/23 04:40 RBC 3.64 M/uL (4.13-5.69) L 06/02/23 04:40 Hgb 11.3 g/dL (12.4-17.3) L 06/02/23 04:40 Hct 36.3 % (36.7-50.6) L 06/02/23 04:40 MCV 99.7 fL (80.0-94.0) H 06/02/23 04:40 MCH 31.0 pg (27.0-31.0) 06/02/23 04:40 MCHC 31.1 g/dL (33.0-37.0) L 06/02/23 04:40 RDW 14.2 % (11.5-14.5) 06/02/23 04:40 Plt Count 223 K/uL (148-402) 06/02/23 04:40 Plt Count Comment Appear normal 06/01/23 04:25 MPV 9.7 fL (7.4-10.4) 06/02/23 04:40 Neut % (Auto) 53.0 % (43.0-65.0) 06/02/23 04:40 Lymph % (Auto) 38.0 % (17.0-45.5) 06/02/23 04:40 [place] % (Auto) 7.0 % (5.5-11.7) 06/02/23 04:40 Eos % (Auto) 2.0 % (0.9-2.9) 06/02/23 04:40 Baso % (Auto) 0 % (0.2-1.0) L 06/02/23 04:40 Abs Immat Gran (man) 0 K/uL (0.00-0.10) 06/02/23 04:40 Absolute Neuts (auto) 2.92 K/uL (2.20-4.80) 06/02/23 04:40 Absolute Lymphs (auto) 2.10 K/uL (1.30-2.90) 06/02/23 04:40 Absolute Monos (auto) 0.40 K/uL (0.30-0.80) 06/02/23 04:40 Absolute Eos (auto) 0.11 K/uL (0.00-0.20) 06/02/23 04:40 Absolute Basos (auto) 0 K/uL (0.00-0.10) 06/02/23 04:40 Immature Gran % 0 % (0.00-1.00) 06/02/23 04:40 Neutrophils (Manual) 53 % (43-65) 06/02/23 04:40 Lymphocytes (Manual) 38 % (17-46) 06/02/23 04:40 Monocytes (Manual) 7 % (6-12) 06/02/23 04:40 Eosinophils (Manual) 2 % (1-3) 06/02/23 04:40 Basophils (Manual) 0 % (0-1) 06/02/23 04:40 Sodium 142 mmol/L (132-145) 06/02/23 04:40 Potassium 3.9 mmol/L (3.3-5.1) 06/02/23 04:40 Chloride 109 mmol/L (94-110) 06/02/23 04:40 Total Carbon Dioxide 26 mmol/L (21-34) 06/02/23 04:40 Anion Gap 10.9 mmol/L (8.0-16.0) 06/02/23 04:40 BUN 25.6 mg/dL (3.2-26.9) 06/02/23 04:40 Creatinine 1.55 mg/dL (0.50-1.17) H 06/02/23 04:40 Est GFR (MDRD) Af Amer 52 (>60) A 06/02/23 04:40 Est GFR (MDRD) Non-Af 43 (>60) A 06/02/23 04:40 BUN/Creatinine Ratio 17 (6-20) 06/02/23 04:40 Glucose 102 mg/dL (65-100) H 06/02/23 04:40 POC Glucose (mg/dL) 102 mg/dL (65-110) 06/01/23 22:18 Hemoglobin A1c 6.5 % (4.8-5.6) H 06/01/23 04:25 Calcium 8.3 mg/dL (8.2-10.0) 06/02/23 04:40 Magnesium 2.0 mg/dL (1.3-2.3) 06/01/23 04:25 Total Bilirubin 0.46 mg/dL (0.00-0.99) 05/31/23 22:27 AST 25 U/L (3-39) 05/31/23 22:27 ALT 23 U/L (13-66) 05/31/23 22:27 Alkaline Phosphatase 43 U/L (54-112) L 05/31/23 22:27 Troponin I High Sens 9 ng/L (0-76) 06/02/23 04:40 Troponin I Hi Sens Del 0 % 06/01/23 00:15 Troponin I Hi Sens Abs Chng 0 ng/L 06/01/23 00:15 Total Protein 6.7 g/dL (6.1-8.2) 05/31/23 22:27 Albumin 3.3 g/dL (3.4-5.0) L 05/31/23 22:27 Globulin 3.4 g/dL (1.5-4.5) 05/31/23 22:27 Albumin/Globulin Ratio 1.0 (1.1-2.5) L 05/31/23 22:27 Urine Color chloe (Yellow) 05/31/23 23:15 Urine Appearance Clear (Clear) 05/31/23 23:15 Urine pH 5 05/31/23 23:15 Ur Specific [place] 1.025 (1.015-1.025) 05/31/23 23:15 Urine Protein 25 (Negative) A 05/31/23 23:15 Urine Ketones Negative (Negative) 05/31/23 23:15 Urine Blood Negative (Negative) 05/31/23 23:15 Urine Nitrite Negative (Negative) 05/31/23 23:15 Urine Bilirubin Negative (Negative) 05/31/23 23:15 Urine Urobilinogen Normal mg/dL (Normal-1.0) 05/31/23 23:15 Ur Leukocyte Esterase Negative (Negative) 05/31/23 23:15 Urine RBC 2-5 /hpf (0 - 2) 05/31/23 23:15 Urine WBC 2-5 /hpf (0 - 6) 05/31/23 23:15 Ur Epithelial Cells 3-6 /lpf (0 - 6) 05/31/23 23:15 Urine Casts >5 fine gran /lpf 05/31/23 23:15 Other Casts >5 hyaline /lpf 05/31/23 23:15 Urine Glucose 50 (Negative) A 05/31/23 23:15 Active Medications Generic Name Dose Route Start Last Admin Trade Name Shawn PRN Reason Stop Dose Admin Aspirin 81 mg 06/01/23 09:00 06/01/23 08:54 Aspirin 81 Mg Chew Tablet PO 07/02/23 09:01 81 mg DAILY OSVALDO Administration Atorvastatin Calcium 10 mg 06/01/23 09:00 06/01/23 08:55 Atorvastatin Calcium 10 Mg Tablet PO 07/02/23 09:01 10 mg DAILY OSVALDO Administration Cholecalciferol 2,000 unit 06/01/23 09:00 06/01/23 08:54 Cholecalciferol (Vitamin D3) 1,000 Unit Tablet PO 07/02/23 09:01 2,000 unit DAILY OSVALDO Administration Cyanocobalamin 500 mcg 06/01/23 09:00 06/01/23 08:55 Cyanocobalamin (Vitamin B-12) 500 Mcg Tablet PO 07/02/23 09:01 500 mcg DAILY OSVALDO Administration Divalproex Sodium 125 mg 06/01/23 09:00 06/01/23 20:24 Divalproex Sodium 125 Mg Sprinkle Capsule PO 07/02/23 09:01 125 mg BID OSVALDO Administration Donepezil HCl 5 mg 06/01/23 18:00 06/01/23 18:27 Donepezil Hcl 5 Mg Tablet PO 07/02/23 18:01 5 mg QPM OSVALDO Administration Famotidine 20 mg 06/02/23 10:00 Famotidine 20 Mg Tablet PO 07/03/23 10:01 Q48H OSVALDO Finasteride 5 mg 06/01/23 09:00 06/01/23 08:56 Finasteride 5 Mg Tablet PO 07/02/23 09:01 5 mg DAILY OSVALDO Administration Heparin Sodium (Porcine) 5,000 unit 06/01/23 08:00 06/02/23 08:57 Heparin Sodium,Porcine 5000 Unit/Ml Injection SQ 07/02/23 08:01 5,000 unit Q12H OSVALDO Administration Protocol Sodium Chloride 1,000 mls @ 500 mls/hr 06/01/23 18:00 06/01/23 22:20 Sodium Chloride 0.9 % 1000 Ml IV Infused .Q2H PRN Infusion INTRAVENOUS Sodium Chloride 1,000 mls @ 100 mls/hr 06/01/23 18:02 06/02/23 09:00 Sodium Chloride 0.9 % 1000 Ml IV 07/02/23 18:03 100 mls/hr .Q10H PRN Administration INTRAVENOUS Insulin Human Lispro 0 unit 06/01/23 07:30 06/02/23 08:10 Insulin Lispro 100 Unit/Ml SQ 07/02/23 07:31 Not Given ACHS [facility] Tamsulosin HCl 0.4 mg 06/01/23 18:00 06/01/23 18:27 Tamsulosin Hcl 0.4 Mg Capsule PO 07/02/23 18:01 0.4 mg QPM OSVALDO Administration Patient History Fenofibrate Nanocrystallized [Fenofibrate] 145 mg PO DAILY 12/08/17 [History Confirmed 06/01/23] Finasteride 5 mg PO DAILY 12/08/17 [History Confirmed 06/01/23] Pravastatin Sodium 80 mg PO QPM 12/08/17 [History Confirmed 06/01/23] Aspirin [Aspirin 81 mg Chew Tablet] 81 mg PO DAILY 10/13/20 [History Confirmed 06/01/23] Cholecalciferol (Vitamin D3) [Vitamin D3 1000 Unit Tablet] 2,000 units PO DAILY 10/13/20 [History Confirmed 06/01/23] Donepezil HCl [Aricept 5 mg Tablet] 5 mg PO QPM 10/13/20 [History Confirmed 06/01/23] Tamsulosin HCl [Flomax 0.4 mg Capsule] 0.4 mg PO QPM 10/13/20 [History Confirmed 06/01/23] Cyanocobalamin (Vitamin B-12) [Vitamin B-12] 500 mcg PO DAILY 08/11/21 [History Confirmed 06/01/23] Divalproex Sodium [Depakote] 125 mg PO BID 08/11/21 [History Confirmed 06/01/23] Hydralazine HCl 25 mg PO TID PRN 08/11/21 [History Confirmed 06/01/23] Lactobacillus Acidophilus [Acidophilus] 100 mg PO DAILY 08/11/21 [History Confirmed 06/01/23] Loperamide HCl [Loperamide] 2 mg PO Q6H PRN 08/11/21 [History Confirmed 06/01/23] Furosemide [Lasix 20 mg Tablet] 20 mg PO .PER.INSTRUCTIONS 08/25/21 [History Confirmed 06/01/23] Acetaminophen [Acetaminophen Extra Strength] 500 mg PO BID 06/01/23 [History Confirmed 06/01/23] Cimetidine 400 mg PO BID 06/01/23 [History Confirmed 06/01/23] Dexlansoprazole [Dexilant] 60 mg PO DAILY 06/01/23 [History Confirmed 06/01/23] Past Medical History Hx Ear/Nose/Throat Disorders: Yes PMH--Ear/Nose/Throat: Confirms: Cataracts, Farsighted Past Surgical Hx-ENT: Confirms: Cataract Removal-Right, Cataract Removal-Left Hx Neurological Disorder: Yes PMH-Neurological: Confirms: Dementia, Memory Loss Hx Psychosocial Problems: Yes PMH--Psychological & Treatments: Confirms: Depression Hx Cardiac Disorders: Yes PMH--Cardiovascular: Confirms: HTN, Hypercholesterolemia Hx Respiratory Disorders: Yes (reviewed ) PMH--Respiratory: Confirms: Asthma, Bronchitis Hx Endocrine Disorders: Yes PMH--Endocrine History: Confirms: Diabetes Type 2 [id number]:: heart burn Hx Musculoskeletal Disorders: No PMH--Musculoskeletal: Confirms: Arthritis Hx Reproductive Disorders: No Hx Genitourinary Disorders: Yes PMH--Genitourinary: Confirms: UTI Hx Gastrointestinal Disorders: Yes PMH--Gastrointestinal: Confirms: GERD, Hernia Past Surgical Hx--GI: Confirms: Appendectomy Hx Cancer: No Other PMH: Confirms: Chicken Pox, Measles, Mumps PHM--Communicable Diseases: Confirms: Chicken Pox, Mumps, Measles Past Social History Marital Status: Lives with: Nursing Facility Occupation: retired Highest Educational Level: High School Able to Read: Yes Able to Write: Yes Packs Per Day Reported: Quit smoking in the 1960s Alcohol Use: Never Drugs: None - Sweet/Gender ID What is your current Gender Identity? Choose all that Apply: Male Define your Sexual Orientation?: Straight/Heterosexual - Crane-Suicide Severity Rating Scale 1) Wish to be :: No 2) Suicidal Thoughts:: No 6) Suicidal Behavior Question (A): LIFETIME: No 6) Suicidal Behavior Question (B): PAST 3 MONTHS: No Family Medical History - Family Medical History Father Living Status: Cardiac History: Cardiac Disorder(s), Myocardial Infarction Review of Systems General: Denies: Fever, Chills Head/Eye: Denies: Headache, Head Injury/Trama ENT: Denies: Earache, Ear Discharge Respiratory: Denies: Cough, Shortness of Breath Cardiovascular: Denies: Chest Pain-Sharp, Palpitations Gastrointestinal: Denies: Nausea, Vomiting Genitourinary: Denies: Dysuria, Frequency Neurological: Confirms: Weakness, Incoordination Cardiology Exam General: Yes: Alert, Oriented HEENT: Yes: Atraumatic, PERRLA Lungs: No: Rhonchi, Rales Cardiovascular: Yes: Regular Rate, Normal S2, Normal S1 Extremities/Skin/Pulses: No: Cyanosis, Edema Abdomen: Yes: Bowel Sounds X4 Neurological: Yes: Speech Clear, Sensation intact Psych/Mental Status: Yes: Mental status NL, Mood Appropriate ASSESSMENT/PLAN Reviewed Vitals, Medications, Labs and Notes. Impression: 1. Possible history of congestive heart failure currently euvolemic versus volume depleted 2. Acute kidney injury versus acute on chronic renal disease 3. Hyperlipidemia 4. Diabetes mellitus Plan: Patient does not have any evidence of volume overload. Patient did present withacute kidney injury and poor oral intake with evidence of volume depletion. Agree with volume resuscitation. Check transthoracic echocardiogram. Hold diuretics for now. Blood pressure normal to high. Consider restarting hydralazine if there is no contraindication. We will follow echo findings. Electronically Generated By:VENANCIO LU Generated Date/Time: 06/02/23 1050 Electronically Signed By: <Electronically signed by VENANCIO LU MD> 06/02/23 1052 Co Signed Electronically By: Co Signed Date/Time: CC: XIAO VALENTINE ; VENANCIO LU [facility] Work Phone: 1(220) [phone] Discharge summary Author MELISA CAREY [facility] June 02, 2023 4:03pm Note Date/Time June 02, 2023 4: 03pm [facility] [address] [place] [id number] HEALTH INFORMATION MANAGEMENT DISCHARGE SUMMARY : [id number] Signed Patient: WILEY MEEK Acct:[id number] MRUN: [id number] : 1940 Sex: M Loc: 4TH FLOOR ADM Date: 06/01/23 Room/Bed: 428-B DISC Date: - Hospital Course Events Since Admission: WILEY MEEK was admitted to MEDICAL SURGICAL service into room 428 on 06/01/23 at 00:40 from Emergency Dept for complaints of ACUTE KIDNEY INJURY, WEAKNESS. Laboratory and diagnostic testing has been reviewed. The patient wasseen, evaluated and found to be appropriate for discharge. Reason For Visit: ACUTE KIDNEY INJURY, WEAKNESS Hospital Course: Patient is 83-year-old male who presented to [facility] ED on 05/31/2023 for weakness associated with lightheadedness. Lightheadedness is worse when he gets up. Patient has not been eating very well recently. Also has ongoing work-up for hiatal hernia, describing sweating whenever he eats. Patient also takes Lasix at home. In the ED, patient received with BP 136/67, HR 90, RR 18, O2 sat 96%, temperature 97.5. Hemoglobin 12.2. Creatinine 2.14. Glucose 221. Alk phos 43. Urinalysis negative for nitrite and blood. Chest x-ray negative. Patient admitted for acute kidney injury. He was orthostatic positive. He was given fluids. ultrasound of the kidneys negative for hydronephrosis. His creatinine and blood pressure slowly improved with hydration. PT was consulted. Cardiology was also consulted. Echo showed EF 60 to 65%, aortic regurgitation mild, mitral regurgitation mild, tricuspid regurgitation mild to moderate. Ascending aorta is mildly dilated 37 mm. Given patient is on the hypovolemic toeuvolemic side, it was recommended to discontinue Lasix. Regarding patient's poor appetite and trouble with hiatal hernia, upper GI showed large paraesophageal hiatal hernia with severe reflux as described. Barium swallow showed large paraesophageal hiatal hernia with marked gastroesophageal reflux. He was started on Protonix. On 06/02/2023, patient's lightheadedness and orthostatic blood pressure had resolved. He was discharged in a stable condition. Daughter was at bedside and extensively advised. Discharge time more than 30 minutes Hospital Treatment: 06/02/23 04:40 06/02/23 04:40 Laboratory Results - last 24 hr 06/02/23 11:37: POC Glucose (mg/dL) 107 06/02/23 08:08: POC Glucose (mg/dL) 104 06/02/23 04:40: Neutrophils (Manual) 53, Lymphocytes (Manual) 38, Monocytes (Manual) 7, Eosinophils (Manual) 2, Basophils (Manual) 0 06/02/23 04:40: TSH 3rd Generation 2.622 06/02/23 04:40: Troponin I High Sens 9 06/02/23 04:40: WBC 5.5, RBC 3.64 L, Hgb 11.3 L, Hct 36.3 L, MCV 99.7 H, MCH 31.0, MCHC 31.1 L, RDW 14.2, Plt Count 223, MPV 9.7, Neut % (Auto) 53.0, Lymph %(Auto) 38.0, [place] % (Auto) 7.0, Eos % (Auto) 2.0, Baso % (Auto) 0 L, Abs Immat Gran (man) 0, Absolute Neuts (auto) 2.92, Absolute Lymphs (auto) 2.10, Absolute Monos (auto) 0.40, Absolute Eos (auto) 0.11, Absolute Basos (auto) 0, Immature Gran % 0 06/02/23 04:40: Sodium 142, Potassium 3.9, Chloride 109, Total Carbon Dioxide 26, Anion Gap 10.9, BUN 25.6, Creatinine 1.55 H, Est GFR (MDRD) Af Amer 52 A, Est GFR (MDRD) Non-Af 43 A, BUN/Creatinine Ratio 17, Glucose 102 H, Calcium 8.3 06/01/23 22:18: POC Glucose (mg/dL) 102 06/01/23 17:01: POC Glucose (mg/dL) 100 06/01/23 04:25: Hemoglobin A1c 6.5 H Intake & Output 05/30/23 05/31/23 06/01/23 06/02/23 23:59 23:59 23:59 23:59 Intake Total 3035 1240 Output Total 400 Balance 2635 1240 Weight 200 lb 192 lb 8 oz 191 lb 5 oz See radiology reports in electronic medical record. - Discharge Information Discharge Diagnosis:: Assessment. 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 Lightheadedness, likely secondary to orthostatic hypotension. Dehydration, Poorappetite. Sweating while eating, ongoing work up for hiatal hernia. L large hiatal hernia with compressing L lower lung atelectasis. Heart failure ruled out. TR mild to moderate. HLD. T2DM, diet controlled. Anemia, macrocytic, stable. BPH. Mood disorder. GERD. 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 Lightheadedness, likely secondary to orthostatic hypotension Dehydration, Poor appetite Sweating while eating, ongoing work up for hiatal hernia L large hiatal hernia with compressing L lower lung atelectasis Heart failure ruled out TR mild to moderate HLD T2DM, diet controlled Anemia, macrocytic, stable BPH Mood disorder GERD Generalized weakness, age related physical debility Plan of Treatment: Plan Discontinue Lasix Take hydralazine from 25 mg 3 times daily SCHEDULED Resume dexlansoprazole, cimetidine Follow up with Surgery outpatient Blood work BMP in 7 days Post hospital follow up with pcp, for bp check - Discharge Instructions Referrals: XIAO VALENTINE [Primary Care Provider] - Prescriptions & home med reconciliation (Convert): Hydralazine HCl 25 mg PO TID 30 Days #90 tablet Other Amb Orders: Basic Metabolic Panel [CHM] Time Frame: 7 Days, Location: Determined By Patient Special Instructions: Discontinue Lasix. Take hydralazine from 25 mg 3 times daily SCHEDULED. Resume dexlansoprazole, cimetidine. Follow up with Surgery outpatient. Blood work BMP in 7 days Activity Level For Discharge:: As Tolerated Discharge Diet: Low Sodium Weight Bearing Status: Weight Bearing as Tolerated Visit Coding - VISIT CODING Date of Service: 06/02/23 Billing Provider:: MELISA CAREY Common Visit Codes: 33999-SQF/OBS DISCH DAY >30min Physical Exam Vital Signs: Vital Signs (72 hours) 05/31/23 05/31/23 05/31/23 22:03 22:53 23:00 Temperature 97.5 F L Pulse Rate 88 88 Pulse Rate [ Lying] Pulse Rate [ 90 Pulse Ox] Pulse Rate [ Sitting] Pulse Rate [ Standing] Respiratory 18 Rate Blood Pressure 136/67 Blood Pressure [Right Arm Lying] Blood Pressure [Right Arm Sitting] Blood Pressure [Right Arm Standing] Blood Pressure 136/67 [Right Arm] Blood Pressure [Sitting] Blood Pressure [Standing] O2 Sat by Pulse 96 94 L 95 Oximetry(%) 05/31/23 05/31/23 06/01/23 23:01 23:13 00:00 Temperature Pulse Rate 88 98 83 Pulse Rate [ Lying] Pulse Rate [ Pulse Ox] Pulse Rate [ Sitting] Pulse Rate [ Standing] Respiratory Rate Blood Pressure 105/57 L 105/65 Blood Pressure [Right Arm Lying] Blood Pressure [Right Arm Sitting] Blood Pressure [Right Arm Standing] Blood Pressure [Right Arm] Blood Pressure [Sitting] Blood Pressure [Standing] O2 Sat by Pulse 95 95 96 Oximetry(%) 06/01/23 06/01/23 06/01/23 00:10 00:20 00:30 Temperature Pulse Rate 92 91 84 Pulse Rate [ Lying] Pulse Rate [ Pulse Ox] Pulse Rate [ Sitting] Pulse Rate [ Standing] Respiratory Rate Blood Pressure Blood Pressure [Right Arm Lying] Blood Pressure [Right Arm Sitting] Blood Pressure [Right Arm Standing] Blood Pressure [Right Arm] Blood Pressure [Sitting] Blood Pressure [Standing] O2 Sat by Pulse 97 97 96 Oximetry(%) 06/01/23 06/01/23 06/01/23 00:40 00:50 00:55 Temperature Pulse Rate 85 84 82 Pulse Rate [ Lying] Pulse Rate [ Pulse Ox] Pulse Rate [ Sitting] Pulse Rate [ Standing] Respiratory Rate Blood Pressure 108/64 Blood Pressure [Right Arm Lying] Blood Pressure [Right Arm Sitting] Blood Pressure [Right Arm Standing] Blood Pressure [Right Arm] Blood Pressure [Sitting] Blood Pressure [Standing] O2 Sat by Pulse 96 95 93 L Oximetry(%) 06/01/23 06/01/23 06/01/23 01:00 01:09 01:20 Temperature 97.5 F L Pulse Rate 78 78 87 Pulse Rate [ Lying] Pulse Rate [ 87 Pulse Ox] Pulse Rate [ Sitting] Pulse Rate [ Standing] Respiratory 18 Rate Blood Pressure 112/77 129/89 Blood Pressure [Right Arm Lying] Blood Pressure [Right Arm Sitting] Blood Pressure [Right Arm Standing] Blood Pressure 129/89 [Right Arm] Blood Pressure [Sitting] Blood Pressure [Standing] O2 Sat by Pulse 94 L 94 L 96 Oximetry(%) 06/01/23 06/01/23 06/01/23 06:03 06:16 09:05 Temperature 98.0 F 98.0 F Pulse Rate 84 89 Pulse Rate [ 68 Lying] Pulse Rate [ Pulse Ox] Pulse Rate [ 75 Sitting] Pulse Rate [ 86 Standing] Respiratory 18 Rate Blood Pressure 154/87 H 145/73 H Blood Pressure [Right Arm Lying] Blood Pressure [Right Arm Sitting] Blood Pressure [Right Arm Standing] Blood Pressure 154/87 H [Right Arm] Blood Pressure 159/90 H [Sitting] Blood Pressure 128/92 H [Standing] O2 Sat by Pulse 96 97 Oximetry(%) 06/01/23 06/01/23 06/01/23 10:00 11:39 18:00 Temperature 97.7 F Pulse Rate 81 Pulse Rate [ 78 74 Lying] Pulse Rate [ Pulse Ox] Pulse Rate [ 76 89 Sitting] Pulse Rate [ 85 86 Standing] Respiratory 12 Rate Blood Pressure 178/98 H Blood Pressure [Right Arm Lying] Blood Pressure [Right Arm Sitting] Blood Pressure [Right Arm Standing] Blood Pressure 138/82 [Right Arm] Blood Pressure 139/81 125/89 [Sitting] Blood Pressure 107/64 128/73 [Standing] O2 Sat by Pulse 97 Oximetry(%) 06/01/23 06/01/23 06/02/23 20:20 23:47 03:53 Temperature 97.6 F L 97.6 F L 97.8 F Pulse Rate 71 58 L Pulse Rate [ Lying] Pulse Rate [ Pulse Ox] Pulse Rate [ 73 Sitting] Pulse Rate [ Standing] Respiratory 18 19 18 Rate Blood Pressure 135/73 139/82 Blood Pressure [Right Arm Lying] Blood Pressure [Right Arm Sitting] Blood Pressure [Right Arm Standing] Blood Pressure 138/85 [Right Arm] Blood Pressure [Sitting] Blood Pressure [Standing] O2 Sat by Pulse 97 94 L 95 Oximetry(%) 06/02/23 06/02/23 06/02/23 08:13 10:20 14:00 Temperature 97.4 F L 97.9 F Pulse Rate 75 66 Pulse Rate [ 83 Lying] Pulse Rate [ Pulse Ox] Pulse Rate [ 83 Sitting] Pulse Rate [ 93 Standing] Respiratory 19 14 Rate Blood Pressure 151/92 H 151/90 H Blood Pressure 141/73 H [Right Arm Lying] Blood Pressure 134/80 [Right Arm Sitting] Blood Pressure 132/65 [Right Arm Standing] Blood Pressure [Right Arm] Blood Pressure [Sitting] Blood Pressure [Standing] O2 Sat by Pulse 96 96 Oximetry(%) 06/02/23 06/02/23 15:43 15:44 Temperature 97.5 F L Pulse Rate 70 72 Pulse Rate [ Lying] Pulse Rate [ Pulse Ox] Pulse Rate [ Sitting] Pulse Rate [ Standing] Respiratory 18 Rate Blood Pressure 152/118 H 169/93 H Blood Pressure [Right Arm Lying] Blood Pressure [Right Arm Sitting] Blood Pressure [Right Arm Standing] Blood Pressure [Right Arm] Blood Pressure [Sitting] Blood Pressure [Standing] O2 Sat by Pulse 97 99 Oximetry(%) General: Yes: Alert, Oriented (X3), Cooperative/Pleasant, No acute distress HEENT: Yes: Atraumatic, PERRLA, EOMI, Mucous membr. moist/pink Lungs: Yes: Clear to auscultation, Normal air movement, Unlabored. No: Shortness Of Breath Scale Cardiovascular: Yes: Regular rate, Normal S2, Normal S1. No: No murmurs, Gallops, Rubs Abdomen: Yes: Bowel Sounds X4, Soft, No Tenderness, Flatus (Present), Bowel Pattern. No: Hepatospenomegaly, Masses, Nausea/Vomiting, Emesis Present, Constipation, Diarrhea Extremities: Yes: Normal pulses. No: Clubbing, Cyanosis, Edema, No tenderness/swelling, Mottling noted Skin: No: Rashes, Skin Breakdown, Significant lesions, Open Wound Present, Skin Tear Neurological: Yes: Speech Clear, Normal tone, Sensation intact, Cognitive Ability Intact Psych/Mental Status: Yes: Mental status NL, Mood Appropriate. No: Depressed/Withdrawn, Hallucinations Genitourinary/Rectal: Yes: Deferred-Not Relevant Breast Exam: Yes: Deferred-Not Relevant Electronically Generated By:MELISA CAREY MD Generated Date/Time: 06/02/231601 Electronically Signed By: <Electronically signed by MELISA CAREY MD> 06/02/231602 Co Signed Electronically By: Co Signed Date/Time: CC: XIAO VALENTINE ; VENANCIO LU [facility] Work Phone: [phone]) 369-384808-18-2023 History and physical note Author [facility]ISA [facility], [facility] June 01, 2023 10:27pm Note Date/Time June 01, 2023 1: 27am [facility] [address] [place], [place] [id number] HEALTH INFORMATION MANAGEMENT HISTORY AND PHYSICAL : Signed with Katy Patient: WILEY MEEK Acct:[id number] MRUN: [id number] : 1940 Sex: M Loc: 4TH FLOOR ADM Date: 06/01/23 Room/Bed: 428-B DISC Date: ADDENDUM npo at midnight esophagram/barium swallow GI w air Addendum: <Electronically signed by MELISA CAREY MD> Signed Date/Time: 06/01/232226 Co-Signed: Co-signed Date/Time ADDENDUM Assessment ZAY on ckd stage stage 3 Lightheadedness, likely secondary to orthostatic hypotension, r/o cardiac causes Dehydration, Poor appetite Sweating while eating, ongoing work up for hiatal hernia L large hiatal hernia with compressing L lower lung atelectasis ?HF on lasix prior to admission HLD T2DM, diet controlled Anemia, macrocytic, stable BPH Mood disorder GERD Generalized weakness Plan continue fluids crea slightly improved still with orthostatic hypotension US no hydronephrosis On tamsulosin, finasteride ?takes lasix at home - hold for now obtain echo, no echo on file repeat ekg. telemetry Home aspirin, statin will consult cardiology ncs diet. ssi for now home divalproex , donepezil PT consulted DVT ppx: heparin GI ppx: pepcid Addendum: <Electronically signed by MELISA CAREY MD> Signed Date/Time: 06/01/232225 Co-Signed: Co-signed Date/Time History of Present Illness Date Of Admission: 06/01/23 Chief Complaint: Complaints, dizziness with standing History of Present Illness: Visit History WILEY MEEK is a 83 year old M patient of [facility]. Patient was admitted from to room 428, bed B on 06/01/23 00:40. Pt was evaluated for complaints of , then admitted to [facility] for ACUTE KIDNEY INJURY, WEAKNESS. WILEY was admitted as a ADM to [facility] for further evaluation and treatment. Pt was seen and evaluated on 06/01/23 0124, by this provider, INDIGO DOCKERY CNP. History of present illness: Mr. Pearl an 83-year-old male comes to [facility] with complaints of weakness. He reports over the past couple days he has had periodsof feeling weak and this is usually in the evening especially when getting up out of his chair or bed. He also reports he has not been eating and drinking brian normally does. He denies pain he also denies fever, chills, diaphoresis, sore throat, runny nose, cough, shortness of breath, chest pain, abdominal pain,nausea/vomiting, diarrhea/constipation, headache, syncopal events, numbness/tingling/paresthesias, change in vision hearing or speech, unilateral weakness, facial droop, exposure to COVID-positive individuals. He has a past medical/surgical history that includes: Asthma, bronchitis, HTN, hypercholesterolemia, dementia, type 2 diabetes, GERD, hernia, heartburn, appendectomy, UTI, depression, bilateral cataract removal. Patient reports he received the COVID-19 vaccine and 2 boosters but could not recall the brand. Marky received the flu shot. He is and lives at [facility] [facility]. He quit smoking in the 1960s and does not consume alcohol or illicit drugs. Allergies/Adverse Reactions: morphine Allergy (Verified 08/25/21 16:07) Sulfa (Sulfonamide Antibiotics) Allergy (Verified 08/25/21 16:07) Home Medications: Patient History Fenofibrate Nanocrystallized [Fenofibrate] 145 mg PO DAILY 12/08/17 [History Confirmed 06/01/23] Finasteride 5 mg PO DAILY 12/08/17 [History Confirmed 06/01/23] Omeprazole 20 mg PO QAM 12/08/17 [History Confirmed 06/01/23] Pravastatin Sodium 80 mg PO QPM 12/08/17 [History Confirmed 06/01/23] Aspirin [Aspirin 81 mg Chew Tablet] 81 mg PO DAILY 10/13/20 [History Confirmed 06/01/23] Cholecalciferol (Vitamin D3) [Vitamin D3 1000 Unit Tablet] 2,000 units PO DAILY 10/13/20 [History Confirmed 06/01/23] Donepezil HCl [Aricept 5 mg Tablet] 5 mg PO QPM 10/13/20 [History Confirmed 06/01/23] Tamsulosin HCl [Flomax 0.4 mg Capsule] 0.4 mg PO QPM 10/13/20 [History Confirmed 06/01/23] Cyanocobalamin (Vitamin B-12) [Vitamin B-12] 500 mcg PO DAILY 08/11/21 [History Confirmed 06/01/23] Divalproex Sodium [Depakote] 125 mg PO BID 08/11/21 [History Confirmed 06/01/23] Hydralazine HCl 25 mg PO TID PRN 08/11/21 [History Confirmed 06/01/23] Lactobacillus Acidophilus [Acidophilus] 100 mg PO DAILY 08/11/21 [History Confirmed 06/01/23] Loperamide HCl [Loperamide] 2 mg PO Q6H PRN 08/11/21 [History Confirmed 06/01/23] Furosemide [Lasix 20 mg Tablet] 20 mg PO QAM 08/25/21 [History Confirmed 06/01/23] Acetaminophen [Acetaminophen Extra Strength] 500 mg PO BID 06/01/23 [History Confirmed 06/01/23] Dexlansoprazole [Dexilant] 60 mg PO DAILY 06/01/23 [History Confirmed 06/01/23] Past Social History Marital Status: Lives with: Nursing Facility 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 Choose all that Apply: Male - Crane-Suicide Severity Rating Scale 1) Wish to be :: No 2) Suicidal Thoughts:: No 6) Suicidal Behavior Question (A): LIFETIME: No 6) Suicidal Behavior Question (B): PAST 3 MONTHS: No Past Medical History Hx Ear/Nose/Throat Disorders: Yes PMH--Ear/Nose/Throat: Confirms: Cataracts, Farsighted Past Surgical Hx-ENT: Confirms: Cataract Removal-Right, Cataract Removal-Left Hx Neurological Disorder: Yes PMH-Neurological: Confirms: Dementia Hx Psychosocial Problems: Yes PMH--Psychological & Treatments: Confirms: Depression Hx Cardiac Disorders: Yes PMH--Cardiovascular: Confirms: HTN, Hypercholesterolemia Hx Respiratory Disorders: Yes (reviewed ) PMH--Respiratory: Confirms: Asthma, Bronchitis Hx Endocrine Disorders: Yes PMH--Endocrine History: Confirms: Diabetes Type 2 [id number]:: heart burn Hx Musculoskeletal Disorders: No Hx Reproductive Disorders: No Hx Genitourinary Disorders: Yes PMH--Genitourinary: Confirms: UTI Hx Gastrointestinal Disorders: Yes PMH--Gastrointestinal: Confirms: GERD, Hernia Past Surgical Hx--GI: Confirms: Appendectomy Hx Cancer: No Other PMH: Confirms: Chicken Pox, Measles, Mumps Family Medical History - Family Medical History Father Living Status: Cardiac History: Cardiac Disorder(s), Myocardial Infarction Review of Systems General: Confirms: Weakness (Patient noticed he has been feeling weak over the past several days mainly in the evening when he is rising up out of his chair orbed). Denies: Fever, Chills, Sweats, Fatigue, Weight Gain, Weight Loss Head/Eye: Denies: Headache, Head Injury/Trama, Hear Loss, Pain, Itching, Redness, Matting, Blurry Vision, Double Vision, Scotoma (Spots), Amauriosis, ExcessiveTearing, Other ENT: Denies: Earache, Ear Discharge, Decreased Hearing, Tinnitus, Nose Congestion, Nose Drainage, Nasal Ulcers, Epitaxis, Sore Throat, Throat Swelling, Hoarseness, Loss Of Voice, Tongue Pain, Tongue Swelling, Lip Swelling, Dental Pain, Cervical, Other Respiratory: Denies: Cough, Shortness of Breath, Wheezing, Sputum Production, Hemoptysis, Dyspnea on Exertion, Pleuritic Pain, Other Cardiovascular: Denies: Chest Pain-Sharp, Chest Pain-Heavy, Orthopnea, Short of Breath, Dyspnea on Exertion, Paroxysmal Noc. Dyspnea, Edema, Palpitations, LightHeadedness, 7, Syncope, Diaphoresis, Claudication, Edema, Other Gastrointestinal: Denies: Nausea, Vomiting, Abdominal Pain, Diarrhea, Constipation, Melena, Hematochezia, Hematemesis, Rectal Pain, Other Genitourinary: Denies: Dysuria, Frequency, Incontinence, Hematuria, Retention, Urgency, Other Musculoskeletal: Denies: Neck Pain, Shoulder Pain, Arm Pain, Back Pain, Hand Pain, Leg Pain, Foot Pain, Other Skin: Denies: Rash, Lesions, Jaundice, Bruising, Other Neurological: Denies: Weakness, Numbness, Incoordination, Change in Speech, Confusion, Seizures, Other Physical Exam Review of Systems Completed?: Yes Vital Signs: Vital Signs (72 hours) 05/31/23 05/31/23 05/31/23 22:03 22:53 23:00 Temperature 97.5 F L Pulse Rate 88 88 Pulse Rate [ 90 Pulse Ox] Respiratory 18 Rate Blood Pressure 136/67 Blood Pressure 136/67 [Right Arm] O2 Sat by Pulse 96 94 L 95 Oximetry(%) 0805/31/23 06/01/23 23:01 23:13 00:00 Temperature Pulse Rate 88 98 83 Pulse Rate [ Pulse Ox] Respiratory Rate Blood Pressure 105/57 L 105/65 Blood Pressure [Right Arm] O2 Sat by Pulse 95 95 96 Oximetry(%) 06/01/23 06/01/23 06/01/23 00:10 00:20 00:30 Temperature Pulse Rate 92 91 84 Pulse Rate [ Pulse Ox] Respiratory Rate Blood Pressure Blood Pressure [Right Arm] O2 Sat by Pulse 97 97 96 Oximetry(%) 06/01/23 06/01/23 06/01/23 00:40 00:50 00:55 Temperature Pulse Rate 85 84 82 Pulse Rate [ Pulse Ox] Respiratory Rate Blood Pressure 108/64 Blood Pressure [Right Arm] O2 Sat by Pulse 96 95 93 L Oximetry(%) General: Yes: Alert, Oriented (X3), Cooperative/Pleasant, No acute distress HEENT: Yes: Atraumatic, PERRLA, EOMI, Mucous membr. moist/pink Lungs: Yes: Clear to auscultation, Normal air movement, Unlabored. No: Exibits Shortness of [place], Shortness Of Breath Scale Cardiovascular: Yes: Regular rate, Normal S2, Normal S1, No murmurs. No: Gallops, Rubs Abdomen: Yes: Bowel Sounds X4, Soft, Large/Obese, No Tenderness. No: Distended,Rigid, Nausea/Vomiting, Emesis Present, Constipation, Diarrhea Extremities: Yes: Normal pulses. No: Clubbing, Cyanosis, Edema, No tenderness/swelling, Mottling noted Skin: No: Rashes, Skin Breakdown, Significant lesions, Open Wound Present, Skin Tear Neurological: Yes: Speech Clear, Strength Normal X4 ext, Cranial nerves 3-12 NL,Cognitive Ability Intact Psych/Mental Status: Yes: Mental status NL, Mood Appropriate. No: Depressed/Withdrawn, Hallucinations Genitourinary/Rectal: Yes: Deferred-Not Relevant Breast Exam: Yes: Deferred-Not Relevant Impressions - Problems (1) Weakness Status: Acute Priority: High Present on admission?: Yes Current Visit: Yes (2) Dizziness on standing Status: Acute Priority: High Present on admission?: Yes Current Visit: Yes (3) Acute kidney injury Status: Acute Priority: High Present on admission?: Yes Current Visit: Yes (4) CKD (chronic kidney disease) stage 3, GFR 30-59 ml/min Problems: Chronic kidney disease stage 3 subtype: stage 3a (GFR 45-59) Qualified Code(s): N18.31 - Chronic kidney disease, stage 3a Status: Chronic Priority: High Present on admission?: Yes Current Visit: No (5) Diabetes mellitus type 2 Status: Chronic Priority: Medium Present on admission?: Yes Current Visit: No Plan/Treatment Current Plan: See New Orders Plan: Impression/plan: 1. Weakness/dizziness on standing: Patient complained of generalized weakness and dizziness/lightheadedness upon rising from a seated or lying position in [facility]. We are monitoring him on telemetry 08/05 and I have ordered orthostaticblood pressures every 4 hours. Additionally I am asking physical therapy to evaluate and treat to increase his strength especially. In his lower extremities 2. ZAY on CKD/dehydration: Creatinine 2.14, GFR 30, BUN 34. Patient is receiving 0.9 normal saline at 150 cc an hour that was started in the emergency room. I will continue that at this time and we will be monitoring electrolytes and kidney function throughout his hospital stay. 3. Diabetes, type II: Started patient on a low concentrated sweet diet. We will be monitoring blood sugars ACHS and covering any elevations with an insulinsliding scale. I do not see that he is on regular diabetic medication and he may be diet controlled. I will draw a hemoglobin A1c to see where he is at currently. 4. GI prophylaxis: I have started Pepcid 20 mg p.o. daily. 5. DVT prophylaxis: Patient will wear SCDs and receive heparin 5000 units subcuevery 12 hours throughout his hospital stay Visit Coding - VISIT CODING Date of Service: 06/01/23 Billing Provider:: INDIGO DOCKERY Common Visit Codes: [id number] INP/OBS CARE (MOD) Electronically Generated By:INDIGO DOCKERY CNP Generated Date/Time: 06/01/23 0124 Electronically Signed By: <Electronically signed by INDIGO DOCKERY CNP> 06/01/23 0207 <Electronically signed by MELISA CAREY MD> 06/01/232214 Co Signed Electronically By: MELISA CAREY MD Co Signed Date/Time: 06/01/232214 CC: XIAO VALENTINE PRABHAKARA P. [facility] Mayra Work Phone: [phone] Discharge summary Author VALENTE PARKER [facility] June 01, 2023 12:40am Note Date/Time May 31, 2023 10 :20pm [facility] [address] [place] [id number] [facility] INFORMATION MANAGEMENT EMERGENCY DEPARTMENT : [id number] Signed Patient: WILEY MEEK Acct:[id number] MRUN: [id number] : 1940 Sex: M Loc: ED AD M Date: 05/31/23 Room/Bed: DISC Date: History of Present Illness - General Chief complaint: Weakness Stated complaint: WEAKNESS Symptom onset: COUPLE DAYS HPI: PT STATES THAT OVER THE PAST COUPLE OF DAYS HE HAS PERIODS OF FEELING WEAK. PT STATES THAT HE HAS NOTICED HIS WEAKNESS MAINLY IN THE EVENINGS AND WHEN HE IS GETTING UP OUT OF HIS CHAIR OR BED. Time Seen by Provider: 05/31/23 22:13 Source: Patient, EMS, RN notes reviewed Mode of Transport: [facility] - History of Present Illness Onset/Timin -: days(s) Severity scale (1-10): Denies Pain Consistency: intermittent Improves with: rest Worsens with: other (standing) Associated Symptoms: denies: confusion, chest pain, cough, diaphoresis, fever/chills, headaches, nausea/vomiting, shortness of breath, syncope - Related Data Home Medications Medication Instructions Recorded Confirmed Fenofibrate Nanocrystallized 145 mg PO DAILY 12/08/17 08/25/21 [Fenofibrate] Finasteride 5 mg PO DAILY 12/08/17 08/25/21 Omeprazole 20 mg PO DAILY 12/08/17 08/25/21 Pravastatin Sodium 80 mg PO QPM 12/08/17 08/25/21 Aspirin [Aspirin 81 mg Chew Tablet] 81 mg PO DAILY 10/13/20 08/25/21 Cholecalciferol (Vitamin D3) 2,000 units PO DAILY 10/13/20 08/25/21 [Vitamin D3 1000 Unit Tablet] Donepezil HCl [Aricept 5 mg Tablet] 5 mg PO QPM 10/13/20 08/25/21 Tamsulosin HCl [Flomax 0.4 mg 0.4 mg PO QPM 10/13/20 08/25/21 Capsule] Cyanocobalamin (Vitamin B-12) 500 mcg PO DAILY 08/11/21 08/25/21 [Vitamin B-12] Divalproex Sodium [Depakote] 125 mg PO BID 08/11/21 08/25/21 Hydralazine HCl 25 mg PO TID PRN 08/11/21 08/25/21 Lactobacillus Acidophilus 100 mg PO DAILY 08/11/21 08/25/21 [Acidophilus] Loperamide HCl [Loperamide] 2 mg PO Q6H PRN 08/11/21 08/25/21 Acetaminophen [Tylenol 325 mg 500 mg PO BID 08/25/21 08/25/21 Tablet] Furosemide [Lasix 20 mg Tablet] 20 mg PO BID 08/25/21 08/25/21 Dexlansoprazole [Dexilant] 30 mg PO DAILY #30 cap 08/26/21 Hydrocodone Bit/Acetaminophen 1 each PO TID PRN #12 tablet 09/01/22 [Cecil 5/325 mg Tablet] Allergies Allergy/AdvReac Type Severity Reaction Status Date / Time morphine Allergy Verified 08/25/21 16:07 Sulfa (Sulfonamide Allergy Verified 08/25/21 16:07 Antibiotics) Review of System - Constitutional Constitutional: Present: Well developed, Well nourished, Non-toxic - Nose,Throat,Mouth Nose (ROS): Absent: pain Throat: Absent: pain, swelling, discharge Mouth: Absent: pain, swelling - Respiratory Respiratory: Absent: cough, short of breath, wheezing - CV Cardiology: Absent: chest pain, edema - GI Gastrointestinal/Abdominal: Absent: abdominal pain, diarrhea, nausea, vomiting - Genitourinary Symptoms: Absent: dysuria - Neuro Neurological: Absent: headache, weakness - Muskuloskeletal Musculoskeletal: Absent: back pain, joint pain, joint swelling - Integumentary Skin: Absent: lesions, rash - Allergic/Immunologic Immunological/Allergic: Present: no symptoms reported - Hematologic Hematologic/Lymphatic: Absent: easy bleeding, easy bruising, swollen glands - Endocrine Endocrine: Present: no symptoms reported - Psychiatric Psychiatric: Present: Normal Affect, Normal Mood. Absent: Depressed - All Others/Exceptions All Other Systems: Reviewed and Negative Except Where Noted in Documentation ED PMH/Social HX/Family HX - Respiratory Hx Respiratory Disorders: Yes (reviewed ) PMH--Respiratory: Asthma, Bronchitis - Cardiovascular Hx Cardiac Disorders: Yes PMH--Cardiovascular: HTN, Hypercholesterolemia - Neurological Hx Neurological Disorder: Yes PMH--Neurological: Dementia - Endocrine Hx Endocrine Disorders: Yes PMH--Endocrine History: Diabetes Type 2 - Gastrointestinal Hx Gastrointestinal Disorders: Yes PMH--Gastrointestinal: GERD, Hernia Other GI PMH: heart burn Past Surgical Hx--GI: Appendectomy - Genitourinary Hx Genitourinary Disorders: Yes PMH--Genitourinary: UTI - Musculoskeletal Hx Musculoskeletal Disorders: No - Reproductive Hx Reproductive Disorders: No - Psychological Hx Psychosocial Problems: Yes PMH--Psychological & Treatments: Depression - HEENT Hx Ear, Nose Throat Disorders: Yes PMH--Ears Nose and Throat: Cataracts, Farsighted Past Surgical Hx-ENT: Cataract Removal-Right, Cataract Removal-Left - Cancer Hx Cancer: No - Other Other PMH: Chicken Pox, Measles, Mumps - Social History Marital Status: Highest Educational Level: High School Able to Read: Yes Able to Write: Yes Smoking Status: Former Smoker Hx Chewing Tobacco Use: No Alcohol Use: Never Any recreational drug use reported?: No Feels Threatened In Home Environment: No Feels Threatened In a Relationship: No - Family PMH Father Living Status: Cardiac: Cardiac Disorder(s), Myocardial Infarction - Sweet/Gender ID What is your current Gender Identity? Choose all that Apply: Male - Crane-Suicide Severity Rating Scale 1) Wish to be :: No 2) Suicidal Thoughts:: No 6) Suicidal Behavior Question (A): LIFETIME: No 6) Suicidal Behavior Question (B): PAST 3 MONTHS: No General Exam - General Limitations: Complains of: no limitations Constitutional: Present: no symptoms reported - Head Head exam: Present: atraumatic, normocephalic, normal inspection - Eye Eye exam: Present: normal apperance, EOMI Pupils: Present: PERRL - ENT ENT exam: Present: normal orophraynx, mucous membranes moist - Neck Neck exam: Present: full ROM, Supple - Respiratory Respiratory exam: Present: lungs clear and equal bilaterally. Absent: respiratory distress - Cardiovascular Cardiovascular Exam: Present: regular rate, normal rhythm - GI/Abdominal GI/Abdominal exam: Present: soft, non tender - Extremities Exam Extremities exam: Present: normal inspection - Back Exam Back exam: Present: normal inspection - Neurological Exam Neurological exam: Present: alert, oriented X3 - Psychiatric Psychiatric exam: Present: normal affect - Skin Skin Color: Present: Normal Skin exam: Present: warm, dry, intact - Vital Signs Vital Signs 05/31/23 05/31/23 05/31/23 22:03 22:53 23:00 Temperature 97.5 F L Pulse Rate 88 88 Pulse Rate [ 90 Pulse Ox] Respiratory 18 Rate Blood Pressure 136/67 Blood Pressure 136/67 [Right Arm] O2 Sat by Pulse 96 94 L 95 Oximetry(%) 05/31/23 05/31/23 23:01 23:13 Temperature Pulse Rate 88 98 Pulse Rate [ Pulse Ox] Respiratory Rate Blood Pressure 105/57 L 105/65 Blood Pressure [Right Arm] O2 Sat by Pulse 95 95 Oximetry(%) Medical Desicion Making - Lab Data Result diagrams: 05/31/23 22:27 05/31/23 22:27 Lab Results 05/31/23 05/31/23 05/31/23 Range/Units 22:27 22:27 22:27 WBC 6.3 (3.6-10.8) K/uL RBC 3.92 L (4.13-5.69) M/uL Hgb 12.2 L (12.4-17.3) g/dL Hct 37.6 (36.7-50.6) % MCV 95.9 H (80.0-94.0) fL MCH 31.1 H (27.0-31.0) pg MCHC 32.4 L (33.0-37.0) g/dL RDW 13.8 (11.5-14.5) % Plt Count 256 (148-402) K/uL MPV 8.8 (7.4-10.4) fL Neut % (Auto) 60.3 (43.0-65.0) % Lymph % (Auto) 31.3 (17.0-45.5) % [place] % (Auto) 6.9 (5.5-11.7) % Eos % (Auto) 1.0 (0.9-2.9) % Baso % (Auto) 0.5 (0.2-1.0) % Abs Immat Gran (man) 0 (0.00-0.10) K/uL Absolute Neuts (auto) 3.79 (2.20-4.80) K/uL Absolute Lymphs (auto) 2.00 (1.30-2.90) K/uL Absolute Monos (auto) 0.40 (0.30-0.80) K/uL Absolute Eos (auto) 0.10 (0.00-0.20) K/uL Absolute Basos (auto) 0.03 (0.00-0.10) K/uL Immature Gran % 0 (0.00-1.00) % Sodium 141 (132-145) mmol/L Potassium 3.6 (3.3-5.1) mmol/L Chloride 104 (94-110) mmol/L Total Carbon Dioxide 27 (21-34) mmol/L Anion Gap 13.6 (8.0-16.0) mmol/L BUN 34.0 H (3.2-26.9) mg/dL Creatinine 2.14 H (0.50-1.17) mg/dL Est GFR (MDRD) Af Amer 36 A (>60) Est GFR (MDRD) Non-Af 30 A (>60) BUN/Creatinine Ratio 16 (6-20) Glucose 221 H (65-100) mg/dL Calcium 8.7 (8.2-10.0) mg/dL Total Bilirubin 0.46 (0.00-0.99) mg/dL AST 25 (3-39) U/L ALT 23 (13-66) U/L Alkaline Phosphatase 43 L (54-112) U/L Troponin I High Sens 8 (0-76) ng/L Total Protein 6.7 (6.1-8.2) g/dL Albumin 3.3 L (3.4-5.0) g/dL Globulin 3.4 (1.5-4.5) g/dL Albumin/Globulin Ratio 1.0 L (1.1-2.5) Urine Color (Yellow) Urine Appearance (Clear) Urine pH Ur Specific [place] (1.015-1.025) Urine Protein (Negative) Urine Ketones (Negative) Urine Blood (Negative) Urine Nitrite (Negative) Urine Bilirubin (Negative) Urine Urobilinogen (Normal-1.0) mg/dL Ur Leukocyte Esterase (Negative) Urine RBC (0 - 2) /hpf Urine WBC (0 - 6) /hpf Ur Epithelial Cells (0 - 6) /lpf Urine Casts /lpf Other Casts /lpf Urine Glucose (Negative) 05/31/23 Range/Units 23:15 WBC (3.6-10.8) K/uL RBC (4.13-5.69) M/uL Hgb (12.4-17.3) g/dL Hct (36.7-50.6) % MCV (80.0-94.0) fL MCH (27.0-31.0) pg MCHC (33.0-37.0) g/dL RDW (11.5-14.5) % Plt Count (148-402) K/uL MPV (7.4-10.4) fL Neut % (Auto) (43.0-65.0) % Lymph % (Auto) (17.0-45.5) % [place] % (Auto) (5.5-11.7) % Eos % (Auto) (0.9-2.9) % Baso % (Auto) (0.2-1.0) % Abs Immat Gran (man) (0.00-0.10) K/uL Absolute Neuts (auto) (2.20-4.80) K/uL Absolute Lymphs (auto) (1.30-2.90) K/uL Absolute Monos (auto) (0.30-0.80) K/uL Absolute Eos (auto) (0.00-0.20) K/uL Absolute Basos (auto) (0.00-0.10) K/uL Immature Gran % (0.00-1.00) % Sodium (132-145) mmol/L Potassium (3.3-5.1) mmol/L Chloride (94-110) mmol/L Total Carbon Dioxide (21-34) mmol/L Anion Gap (8.0-16.0) mmol/L BUN (3.2-26.9) mg/dL Creatinine (0.50-1.17) mg/dL Est GFR (MDRD) Af Amer (>60) Est GFR (MDRD) Non-Af (>60) BUN/Creatinine Ratio (6-20) Glucose (65-100) mg/dL Calcium (8.2-10.0) mg/dL Total Bilirubin (0.00-0.99) mg/dL AST (3-39) U/L ALT (13-66) U/L Alkaline Phosphatase (54-112) U/L Troponin I High Sens (0-76) ng/L Total Protein (6.1-8.2) g/dL Albumin (3.4-5.0) g/dL Globulin (1.5-4.5) g/dL Albumin/Globulin Ratio (1.1-2.5) Urine Color chloe (Yellow) Urine Appearance Clear (Clear) Urine pH 5 Ur Specific [place] 1.025 (1.015-1.025) Urine Protein 25 A (Negative) Urine Ketones Negative (Negative) Urine Blood Negative (Negative) Urine Nitrite Negative (Negative) Urine Bilirubin Negative (Negative) Urine Urobilinogen Normal (Normal-1.0) mg/dL Ur Leukocyte Esterase Negative (Negative) Urine RBC 2-5 (0 - 2) /hpf Urine WBC 2-5 (0 - 6) /hpf Ur Epithelial Cells 3-6 (0 - 6) /lpf Urine Casts >5 fine gran /lpf Other Casts >5 hyaline /lpf Urine Glucose 50 A (Negative) Orders: Medications Sodium Chloride (Sodium Chloride 0.9 % 1000 Ml) 1,000 mls @ 150 mls/hr IV .[id number] ONE Stop: 06/01/23 05:32 Last Admin: 05/31/23 23:10 Dose: 150 mls/hr Documented by: PRATIMA Labs 05/31/23 22:14 12-Lead per nursing [RC] STAT EKG [CAR] Stat 05/31/23 22:27 CBC w/Auto Differential [HEM] Stat Comprehensive Metabolic Panel [CHM] Stat High Sensitivity Troponin I* [CHM] Stat 05/31/23 22:53 Normal Saline 0.9% 1000 ml [Sodium Chloride 0.9 % 1000 ml] 1,000 ml IV 150 mls/hr 05/31/23 23:15 UA w/micrscopic-reflex culture [URN] Stat 05/31/23 23:27 CHEST AP [DIAG] Stat 06/01/23 00:14 High Sensitivity Troponin I* [CHM] Routine 06/01/23 00:35 Admission Order Routine EKG as Needed [RC] PRN Notify Physician of [RC] PRN Resuscitation Status Order Routine - Radiology Data IMPRESSIONS Electrocardiogram 05/31/23 22:14 [facility] ED Test Date: 2023-05-31 Test Time: 22:33:59 Pat Name: WILEY MEEK Department: ED Room: Gender: Male 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 - Medical Decision Making MDM ED Course: 83-year-old male with generalized weakness, dizziness with standing for 3 days. Work-up shows some worsening of his renal insufficiency. Patient's has had a poor appetite recently. This may be contributing to some transient hypotension and dehydration. We will treat with IV fluids and plan on hospital admission for further work-up and monitoring. Prior external records reviewed: Outpatient records The patient has received a medical screening examination: within reasonable clinical confidence has been stabilized in the ED. Reviewed pertinent findings from resulted labs: CBC normal, creatinine 2.14 Imaging: Interpretation by radiology and independently interpreted by me. Chest x-ray shows a hiatal hernia but nothing acute EKG reviewed and discussed with patient. Full EKG read found on [employer] Presenting clinical condition necessitates admission or observation consideration: Yes Independent Hx provided by: Patient and EMS Med Rx considered but ultimately not given: Antibiotics Dx tests considered but ultimately not ordered: CT head Social determinant that may affects healthcare: alf patient Pt?s case/impression summarized and discussed with: Patient, hospitalist, family Likely Dx given clinical picture: Acute on chronic renal sufficiency, dehydration, hypotension resolved Although not an exhaustive list of Differential Diagnosis (though considered), patient?s HPI, PE, and other findings are not suggestive of: Anemia, acute blood loss, dehydration, infection, sepsis Patient at the time of disposition was stable however in serious and/or critical condition from their presenting complaint thus requiring admission. The patient and/or family was given the opportunity to ask questions prior to admission, understood my verbal discussion of the plans for treatment, expected course, and the need for timely follow up as directed. Condition: Stable Disposition: Admit ED Discharge Summary - Discharge Data Clinical Impression: Acute kidney injury, Weakness Condition: Fair Disposition: 09 ADMITTED INPATIENT Admission/OVS: Admit as Inpatient Referrals: XIAO VALENTINE [Primary Care Provider] - Home Medications: Ambulatory Orders Medication Instructions Recorded Fenofibrate Nanocrystallized 145 mg PO DAILY 12/08/17 [Fenofibrate] Finasteride 5 mg PO DAILY 12/08/17 Omeprazole 20 mg PO DAILY 12/08/17 Pravastatin Sodium 80 mg PO QPM 12/08/17 Aspirin [Aspirin 81 mg Chew Tablet] 81 mg PO DAILY 10/13/20 Cholecalciferol (Vitamin D3) 2,000 units PO DAILY 10/13/20 [Vitamin D3 1000 Unit Tablet] Donepezil HCl [Aricept 5 mg Tablet] 5 mg PO QPM 10/13/20 Tamsulosin HCl [Flomax 0.4 mg 0.4 mg PO QPM 10/13/20 Capsule] Cyanocobalamin (Vitamin B-12) 500 mcg PO DAILY 08/11/21 [Vitamin B-12] Divalproex Sodium [Depakote] 125 mg PO BID 08/11/21 Hydralazine HCl 25 mg PO TID PRN 08/11/21 Lactobacillus Acidophilus 100 mg PO DAILY 08/11/21 [Acidophilus] Loperamide HCl [Loperamide] 2 mg PO Q6H PRN 08/11/21 Acetaminophen [Tylenol 325 mg 500 mg PO BID 08/25/21 Tablet] Furosemide [Lasix 20 mg Tablet] 20 mg PO BID 08/25/21 Dexlansoprazole [Dexilant] 30 mg PO DAILY #30 08/26/21 Hydrocodone Bit/Acetaminophen 1 each PO TID PRN #12 tablet 09/01/22 [Cecil 5/325 mg Tablet] Time Seen by Provider: 05/31/23 22:13 Electronically Generated By:VALENTE PARKER MD Generated Date/Time: 05/31/23 2217 Electronically Signed By: <Electronically signed by VALENTE PARKER MD> 06/01/23 0040 Co Signed Electronically By: Co Signed Date/Time: CC: XIAO VALENTINE [facility] Work Phone: 1(581) 646-259111-17-2022 Discharge summary Author LAWSON ACOSTA [facility] September 01, 2022 2:50pm Note Date/Time September 01, 2022 2:50pm [facility] ENTER [address] [place] [address] HEALTH INFORMATION MANAGEMENT EMERGENCY DEPARTMENT : [id number] Signed Patient: WILEY MEEK Acct:[id number] MRUN: [id number] : 1940 Sex: M Loc: ED AD M Date: 08/31/22 Room/Bed: DISC Date: ED PMH/Social HX/Family HX - Respiratory Hx Respiratory Disorders: Yes (reviewed ) PMH--Respiratory: Asthma, Bronchitis - Cardiovascular Hx Cardiac Disorders: Yes PMH--Cardiovascular: HTN, Hypercholesterolemia - Neurological Hx Neurological Disorder: Yes PMH--Neurological: Dementia - Endocrine Hx Endocrine Disorders: Yes PMH--Endocrine History: Diabetes Type 2 - Gastrointestinal Hx Gastrointestinal Disorders: Yes PMH--Gastrointestinal: GERD Other GI PMH: heart burn Past Surgical Hx--GI: Appendectomy - Genitourinary Hx Genitourinary Disorders: Yes PMH--Genitourinary: UTI - Musculoskeletal Hx Musculoskeletal Disorders: No - Reproductive Hx Reproductive Disorders: No - Psychological Hx Psychosocial Problems: Yes PMH--Psychological & Treatments: Depression - HEENT Hx Ear, Nose Throat Disorders: Yes PMH--Ears Nose and Throat: Cataracts, Farsighted Past Surgical Hx-ENT: Cataract Removal-Right, Cataract Removal-Left - Cancer Hx Cancer: No - Other Other PMH: Chicken Pox, Measles, Mumps - Social History Highest Educational Level: High School Able to Read: Yes Able to Write: Yes Smoking Status: Never Smoked Hx Chewing Tobacco Use: No Alcohol Use: Never Any recreational drug use reported?: No Feels Threatened In Home Environment: No Feels Threatened In a Relationship: No - Family PMH Father Living Status: Cardiac: Cardiac Disorder(s), Myocardial Infarction - Sweet/Gender ID What is your current Gender Identity? Choose all that Apply: Male - Crane-Suicide Severity Rating Scale 1) Wish to be :: No 2) Suicidal Thoughts:: No 6) Suicidal Behavior Question (A): LIFETIME: No 6) Suicidal Behavior Question (B): PAST 3 MONTHS: No ED Discharge Summary - Discharge Data Clinical Impression: Compression fracture of L1 lumbar vertebra, Low back pain, Unable to walk, Degeneration of lumbar intervertebral disc, CKD (chronic kidney disease) Condition: Good Disposition: 01 HOME / SELF CARE / HOMELESS Referrals: MYNOR GONZALEZ MD [MEDICAL DOCTOR] - LINDSEY LANDAVERDE [Primary Care Provider] - Additional Instructions: Watch for sedation while taking Cecil as prescribed. Follow-up with orthopedicsfor outpatient reevaluation of L1 compression fracture, call orthopedic office today and schedule follow-up appointment. Return to ER if symptoms worse or anyother problem. Fall precautions to be maintained by staff at patient's assistedliving facility. Call the orthopedic clinic in [place] for follow-up of your orthopedic needs. Walk-in and same day appointments are available and welcome! [phone] [facility] [address] [place] [address] [address] [place], [place] Home Medications: Ambulatory Orders Medication Instructions Recorded Fenofibrate Nanocrystallized 145 mg PO DAILY 12/08/17 [Fenofibrate] Finasteride 5 mg PO DAILY 12/08/17 Omeprazole 20 mg PO DAILY 12/08/17 Pravastatin Sodium 80 mg PO QPM 12/08/17 Aspirin [Aspirin 81 mg Chew Tablet] 81 mg PO DAILY 10/13/20 Cholecalciferol (Vitamin D3) 2,000 units PO DAILY 10/13/20 [Vitamin D3 1000 Unit Tablet] Donepezil HCl [Aricept 5 mg Tablet] 5 mg PO QPM 10/13/20 Tamsulosin HCl [Flomax 0.4 mg 0.4 mg PO QPM 10/13/20 Capsule] Cyanocobalamin (Vitamin B-12) 500 mcg PO DAILY 08/11/21 [Vitamin B-12] Divalproex Sodium [Depakote] 125 mg PO BID 08/11/21 Hydralazine HCl 25 mg PO TID PRN 08/11/21 Lactobacillus Acidophilus 100 mg PO DAILY 08/11/21 [Acidophilus] Loperamide HCl [Loperamide] 2 mg PO Q6H PRN 08/11/21 Acetaminophen [Tylenol 325 mg 500 mg PO BID 08/25/21 Tablet] Furosemide [Lasix 20 mg Tablet] 20 mg PO BID 08/25/21 Dexlansoprazole [Dexilant] 30 mg PO DAILY #30 cap. 08/26/21 Hydrocodone Bit/Acetaminophen 1 each PO TID PRN #12 tablet 09/01/22 [Cecil 5/325 mg Tablet] Home medications and allergies reviewed: Yes Time Seen by Provider: 09/01/22 00:30 - Consultation Nurses Notes Reviewed and Agreed With?: Yes - Dictation Amendments/Documentation: [place] Document Only Attestation: At least one of your blood pressure readings in the Emergency Department visit today were above 120/80. You need to follow up with your Primary Care Physician/Family Doctor within the next week about your blood pressure. Electronically Generated By:LAWSON ACOSTA MD Generated Date/Time: 09/01/22 1448 Electronically Signed By: LAWSON ACOSTA MD Signed Date/Time 09/01/22 1450 Co Signed Electronically By: Co Signed Date/Time: CC: LINDSEY LANDAVERDE [facility] Work Phone: 1(248) 605-365108-29-2021 Emergency department Note* Carmen Glover RN - 06/13/2021 11:13 AM EDT Report called to [place] Jim. * Carmen Glover RN - 06/13/2021 11:08 AM EDT Pt daughter is almost here. [facility]. * Carmen Glover RN - 06/13/2021 10:52 AM EDT Called lab regarding procalcitonin results, Blanquita is running. * Chris Martinez DO - 06/13/2021 10:35 AM EDT ED Diagnosis and Summary 1. ZAY (acute kidney injury) ([facility]) 2. Dehydration 3. Dementia without behavioral disturbance, unspecified dementia type (HCC) ED Summary I did review the patient's medical records from [place] he did have worsening renal function as well as an episode of hypotension at 11:00 last evening. Labs at that time showed an elevated lactate, but the remainder of his metabolic profile is reassuring. He did receive fluids. His blood pressure medications were held. He was transferred here roughly over an hour ago. Repeat labs show resolvedlactate. The patient has no complaints at this time is actually hypertensive. He has a benign abdominal exam. Images of the chest at [place] were benign. His urinalysis was also benign and his renal function has improved significantly. I am awaiting a procalcitonin, if it is also negative, I do feel discharge home is appropriate. He [facility] live [facility] the jail. I will recommend they continue to encourage p.o. fluids. He is hypertensive at this time I do feel he can go back on his regular blood pressure medication. He is only taken 5 mg of lisinopril daily as well as his Apresoline 3 timesa day. I do not feel further observation is needed, because he is already been resuscitated and observed for over 11 hours between both of his ER visits. I do plan to discharge him from the ED back to his jail with the only new order to hold his lisinopril. I do feel his family doctor can recheck it in a couple days and if his kidney function has recovered they can resume his lisinopril. History Chief Complaint Patient presents with Provider Referral Blood Infection Patient's medications and allergies were reviewed and updated as appropriate. Patient's medications, allergies, past medical, surgical, social and family histories were reviewedand updated as appropriate. HPI I was asked to come see the patient for possible admission to observation unit. Apparently was found to be hypotensive yesterday had acute kidney injury and elevated lactate. He was seen at [facility] department and was assumed to have sepsis. He was given IV fluids and his medications were held. Throughout the last 11 hours his blood pressure has completely recovered he is actually hypertensive, most likely due to volume replacement and lack of his normal blood pressure medications which consist of lisinopril and Apresoline. Patient currently denies any pain. He denies any lightheadedness, he denies any dysuria. He does have a history of dementia so that history is difficult to obtain but he does not appear uncomfortable or unwell at this time. Review of Systems Unable to perform ROS: Dementia Physical Exam ED Triage Vitals [06/13/21 0930] BP (!) 197/105 Heart Rate 71 Resp 20 Temp 98 F (36.7 C) Temp Source Oral SpO2 97 % Weight 202 lb (91.6 kg) Height 6' (1.829 m) BMI (Calculated) 27.39 Physical Exam Vitals and nursing note reviewed. Constitutional: General: He is not in acute distress. Appearance: He is not ill-appearing, toxic-appearing or diaphoretic. HENT: Head: Atraumatic. Nose: No congestion or rhinorrhea. Mouth/Throat: Mouth: Mucous membranes are moist. Eyes: General: No scleral icterus. Cardiovascular: Rate and Rhythm: Normal rate and regular rhythm. Pulses: Normal pulses. Pulmonary: Effort: Pulmonary effort is normal. No respiratory distress. Abdominal: General: There is no distension. Tenderness: There is no abdominal tenderness. Musculoskeletal: Right lower leg: No edema. Left lower leg: No edema. Skin: Findings: No erythema or rash. Neurological: General: No focal deficit present. Psychiatric: Comments: Flat affect ED Course Procedures Medical Decision Making Number of Diagnoses or Management Options Amount and/or Complexity of Data Reviewed Clinical lab tests: reviewed Obtain history from someone other than the patient: yes Review and summarize past medical records: yes Discuss the patient with other providers: yes Independent visualization of images, tracings, or specimens: yes Patient Progress Patient progress: improved Chris Martinez DO 06/13/21 1041 Chris Martinez DO 06/13/21 1042 * Carmen Glover RN - 06/13/2021 10:30 AM EDT Lab called and they will add procalcitonin to blood previously sent. Spoke to Blanquita. * Valente Looney MST - 06/13/2021 10:24 AM EDT 1s 1207 * Carmen Glover RN - 06/13/2021 9:28 AM EDT Pt presents to ED via EMS from [place] w/c/o dizziness and frequent falls from jail. Dx w/ sepsis. Given 3 L NS, 1 g Vanc, 3.375 g Zosyn Pt. AOx2, unknown year in NAD, resp. easy unlabored, skin w/p/d. * Ce Marcial RN - 06/13/2021 9:27 AM EDT Bed: 14 ED Expected date: 06/13/21 Expected time: 9:26 AM Means of arrival: [facility] Comments: 81 yo male Transfer from [place], dizziness, frequent falls, sepsis [facility] KHALIF ZAYAS [facility] Note Date/Time October 24, 2024 3: 43pm [facility] ENTER [address] [place] [address] HEALTH INFORMATION MANAGEMENT DISCHARGE SUMMARY : [id number] Signed Patient: WILEY MEEK Acct:[id number] MRUN: [id number] : 1940 Sex: M Loc: ICU AD M Date: 10/22/24 Room/Bed: 354-A DISC Date: - Hospital Course Events Since Admission: WILEY MEEK was admitted to MEDICAL SURGICAL service into room 354 on 10/22/24 at 16:42 from Emergency Dept for complaints of ALTERED MENTAL STATUS ACUTE ON CHRONIC RENAL FAILU. Laboratory and diagnostic testing has been reviewed. The patient was seen, evaluated and found to be appropriate for discharge. Reason For Visit: ALTERED MENTAL STATUS ACUTE ON CHRONIC RENAL FAILU Hospital Course: Mr. Meek an 84-year-old [facility] in mental status. Unfortunately patient is a very poor historian and was unsure why he was brought to the emergency room. He does have a history of dementia.patient was admitted due to more confused than his usual baseline. CT brain was negative for acute intracranial pathology. chest x-ray did not show acute cardiopulmonary pathology. UA was negative for UTI. patient was hydrated. on the day of discharge, he states he feels well and would like to be dischargedhome. clinically and vitally stable patient is going to be discharged home Impression/plan: 1. Metabolic encephalopathy dementia patient was admitted due to more confused than his usual baseline patient is oriented in place and himself CT of the brain findings no acute intracranial abnormality. Periventricular white matter changes consistent with chronic microvascular disease. Diffuse volume loss. Chest x-ray findings no change in the massive hiatal hernia located within the left lower chest. Increased moderate linear atelectasis of the left lower lobe and infrahilar region adjacent to the hiatal hernia. UA negative for UTI. Blood Cx shows no growth EKG was regular sinus rhythm with right bundle branch. Troponins were seven, 10 and 11. 2. Acute on chronic renal failure/Dehydration Creatinine 1.84, GFR 35, BUN 28.9. 10/24/2024 creatinine improved to1.46 Patient received 0.9 normal saline 3700 cc in the emergency room repeat CMP within one week after hospital discharge oral hydration encouraged 3. Diabetes, type 2 no concentrated sweet diet check Hb A1c q3 months Hospital Treatment: 10/24/24 05:06 10/24/24 05:06 Laboratory Results - last 24 hr 10/24/24 11:26: POC Glucose (mg/dL) 139 10/24/24 05:06: WBC 5.6, RBC 3.69 L, Hgb 11.8 L, Hct 36.6 L, MCV 99.2 H, MCH 32.0 H, MCHC 32.2 L, RDW 13.6, Plt Count 264, MPV 8.9, Neut % (Auto) 57.8, Lymph% (Auto) 30.4, [place] % (Auto) 8.4, Eos % (Auto) 2.9, Baso % (Auto) 0.5, Abs ImmatGran (man) 0, Absolute Neuts (auto) 3.23, Absolute Lymphs (auto) 1.70, Absolute Monos (auto) 0.50, Absolute Eos (auto) 0.20, Absolute Basos (auto) 0.03, Immature Gran % 0 10/24/24 05:06: Sodium 142, Potassium 4.5, Chloride 107, Total Carbon Dioxide 30, Anion Gap 9.5, BUN 21.2, Creatinine 1.46 H, Est GFR (MDRD) Af Amer 56 A, EstGFR (MDRD) Non-Af 46 A, BUN/Creatinine Ratio 15, Glucose 121 H, Calcium 8.5, Total Bilirubin 0.35, AST 35, ALT 29, Alkaline Phosphatase 43 L, Total Protein 6.2, Albumin 2.8 L, Globulin 3.4, Albumin/Globulin Ratio 0.8 L 10/23/24 22:21: POC Glucose (mg/dL) 141 10/23/24 16:57: POC Glucose (mg/dL) 127 10/22/24 20:15: Folic Acid 12.8 10/22/24 20:15: C-Reactive Protein < 1 10/22/24 15:30: Total Valproic Acid 15 L Intake & Output 10/21/24 10/22/24 10/23/24 10/24/24 23:59 23:59 23:59 23:59 Intake Total 1999 1721 1160 Output Total 800 1250 575 Balance 1200 471 585 Weight 192 lb 3.2 oz 191 lb 14.4 oz 191 lb 8 oz See radiology reports in electronic medical record. - Discharge Information Discharge Diagnosis:: Acute metabolic encephalopathy. Acute on chronic renal failure. Dehydration. Diabetes mellitus type 2. dementia Disposition: HOME / SELF CARE Condition: Good Plan of Treatment: follow-up with the primary care physician in one week to discuss result of CMP repeat CMP in one week, check for renal function test oral hydration encouraged - Discharge Instructions Referrals: MONTRELL EDWARD MD [Primary Care Provider] - Special Instructions: follow-up with your primary care physician in 1 week. repeat CMP in one week after hospital discharge. oral hydration encouraged Activity Level For Discharge:: As Tolerated Discharge Diet: Low Sodium, Nonconcentrated Sweets Weight Bearing Status: Weight Bearing as Tolerated - ASCVD SCORING Was this patient admitted for chest pain?: No Does this patient have a new DX of ASCVD?: No Visit Coding - VISIT CODING Date of Service: 10/24/24 Billing Provider:: KHALIF ZAYAS Common Visit Codes: 92695-SVT/OBS DISCH DAY >30min Electronically Generated By:KHALIF ZAYAS MD Generated Date/Time: 10/24/24 1531 Electronically Signed By: <Electronically signed by KHALIF ZAYAS MD> 10/24/24 1543 Co Signed Electronically By: Co Signed Date/Time: CC: MONTRELL EDWARD MD [facility] Work Phone: Evaluation note* Diagnosis ZAY (acute kidney injury) (HCC)- Primary Acute kidney failure, unspecified Dehydration Dementia without behavioral disturbance, unspecified dementia type (HCC) [facility] assessment information available [facility] Work Phone: Evaluation note* Author MELISA CAREY [facility] Authored June 02, 2023 4: 02pm Assessment ZAY secondary to ATN on ckd stage stage 3 Lightheadedness, likely secondary to orthostatic hypotension Dehydration, Poor appetite Sweating while eating, ongoing work up for hiatal hernia L large hiatal hernia with compressing L lower lung atelectasis Heart failure ruled out TR mild to moderate HLD T2DM, diet controlled Anemia, macrocytic, stable BPH Mood disorder GERD Generalized weakness, age related physical debility [facility] Work Phone: Evaluation note* Diagnosis Onset Date Resolution Status Acute kidney injury acute Acute kidney injury superimp osed on chronic kidney disease acute Altered mental status acute Dehydration acute Dizziness acute Metabolic encephalopathy acu te [facility] Work Phone: Evaluation note No assessment recorded. [place] - AT YOUR DOOR: VISITING HEALTHCARE S History general Narrative - ReportedNo medical history recorded.[place] - AT YOUR DOOR: [facility]ISITING HEALTHCARE S Hospital Discharge instructions* Attachments The following attachments cannot be sent through Care Everywhere. * Dehydration (Spanish Croatian) * Renal Failure: Acute (Spanish Croatian) [facility] instructions Additional Instructions Watch for sedation while taking Cecil as prescribed. Follow-up with orthopedics for outpatient reevaluation of L1 compression fracture, call orthopedic office today and schedule follow-up appointment. Return to ER if symptoms worse or any other problem. Fall precautions to be maintained by staff at patient's assisted living facility. Call the orthopedic clinic in [place] for follow-up of your orthopedic needs. Walk-in and same day appointments are available and welcome! [phone] [facility] Work Phone: Reason for referral (narrative)No reason for referral information availableMart[facility] Work Phone: Summary Purpose Family History Relationship Condition Age at Onset Recorded Date/T marjorie Father Cardiac?Cardiac Diso rder(s), Myocardial Infarction Unknown September 01, 2022 2:50pm Unknown Respiratory?Respirat ory Disorder(s) Unknown April 30, 2016 6:16pm Relationship Condition Age at Onset Recorded Date/T marjorie Father Cardiac?Cardiac Diso rder(s), Myocardial Infarction Unknown June 02, 2023 10:51am Unknown Respiratory?Respirat ory Disorder(s) Unknown April 30, 2016 7:16pm Relationship Condition Age at Onset Recorded Date/T marjorie Father Cardiac?Cardiac Diso rder(s), Myocardial Infarction Unknown December 23, 2023 9:20am Unknown Respiratory?Respiratory Disorder(s) Unkno wn April 30, 2016 7:16pm Relationship Condition Age at Onset Recorded Date/T marjorie Father Cardiac?Cardiac Diso rder(s), Myocardial Infarction Unknown December 23, 2023 9:20am Cardiac?Cardiac Diso rder(s), Myocardial Infarction Unknown December 23, 2023 9:20am Unknown Respiratory?Respiratory Disorder(s) Unkno wn April 30, 2016 7:16pm Respiratory?Respiratory Disorder(s) Unkno wn April 30, 2016 7:16pm Relationship Condition Age at Onset Recorded Date/T marjorie Father Cardiac?Cardiac Diso rder(s), Myocardial Infarction Unknown October 23, 2024 6:30pm Mother Cancer History?Breast Cancer Unknown October 23, 2024 6:30pm Unknown Respiratory?Respirat ory Disorder(s) Unknown April 30, 2016 6:16pm Notes:Father: Cardiac Disord er, MS Relationship Condition Age at Onset Recorded Date/T marjorie Father Cardiac?Cardiac Diso rder(s), Myocardial Infarction Unknown July 20, 2025 8:51am Mother Cancer History?Breast Cancer Unknown July 20, 2025 8:51am Unknown Respiratory?Respirat ory Disorder(s) Unknown April 30, 2016 7:16pm Advance Directives Documents on File Type Date Recorded Patient Garde Manger Expl anation Advance Directives and Livin g Will Advance Directives and Livin g Will 04/09/2014 10:20 AM No Ad Power of Head Of Research [employer] Insights Documents on File Type Date Recorded Patient Garde Manger Expl anation Advance Directives and Livin g Will Advance Directives and Livin g Will 04/09/2014 10:20 AM No Ad Power of Head Of Research [employer] Insights Documents on File Type Date Recorded Patient Garde Manger Expl anation Advance Directives and Livin g Will Power of Head Of Research [employer] Insights Advance Directives and Livin g Will 04/09/2014 10:20 AM No Ad Advance Directive Response Recorded Date/ Time Advance Directives No August 11:52pm Advanced Directive on File No 2021 11:52pm Advance Directive Response Recorded Date/ Time Advance Directives No June 01, 2023 2:27am Advance Directives Information Provided No June 01, 2023 2:27am Advanced Directive on File No Augus t 2022 2:27am Advance Directive Response Recorded Date/ Time Advance Directives No December 21 9:57pm Advance Directives Information Provided No December 22, 2023 9:57pm Advanced Directive on File No December 22, 2023 9:57pm Advance Directive Response Recorded Date/ Time Advance Directives No October 22, 2024 6:12pm Advance Directives Information Provided No October 22, 2024 6:12pm Advanced Directive on File No Octua 2024 6:12pm Advance Directive Response Recorded Date/ Time Advance Directives No July 19, 2025 4:25pm Advance Directives Information Provided No July 19, 2025 4:25pm Advanced Directive on File No Octob er 2024 4:25pm Reason for Referral Status Reason Specialty Diagnoses / Procedures Referred By Contact Referred To Contact [facility] Diagnoses 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 Procedures Nuclear Stress Test - Pharmacological CV STRS TST XERS&/OR RX CONT ECG TRCG ONLY MYOCARDIAL SPECT MULTIPLE STUDIES Gorge Colon MD [address] [place] [address] [address] Stress [address] [place] [address] Status Reason Specialty Diagnoses / Procedures Referred By Contact Referred To Contact [facility] Diagnoses Dizziness Procedures Holter Monitor complete <48 hours Order Gorge Colon MD [address] [place] [address] [address] Stress [address] [place] [address] Status Reason Specialty Diagnoses / Procedures Referred By Contact Referred To Contact [facility] Diagnoses Type 2 diabetes mellitus without complication, without long-term current use of insulin (HCC) Dizziness 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 Procedures Echocardiogram complete (M-Mode/2D) Gorge Colon MD [address] [place] [address] [address] Echo [address] [place] [address] Status Reason Specialty Diagnoses / Procedures Referre d By Contact Referred To Contact [facility] Diagnoses Altered mental status, unspecified altered mental status type Obstructive sleep apnea Procedures MRI Brain Without IV Contrast Angelo Estrella MD [address] [facility] [place] [address] General Radiology [address] [place] [address] Status Reason Specialty Diagnoses / Procedures Referred By Contact Referred To Contact Closed Sleep Medicine Diagnoses Obstructive sleep apnea Procedures Polysomnography 4 or more parameters with CPAP Angelo Estrella MD [address] [facility], [place] [address] s Sleep Disorders [address] [place] [address] Assessments Diagnosis 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 Diagnosis Dizziness Dizziness and giddiness Diagnosis Type 2 diabetes mellitus without complication, without long-term current use of insulin (HCC) Dizziness Dizziness and giddiness 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 Diagnosis Type 2 diabetes mellitus without complication, without long-term current use of insulin (HCC) Dementia without behavioral disturbance, unspecified dementia type (HCC) Confusion Unspecified psychosis Diagnosis Altered mental status, unspecified altered mental status type Obstructive sleep apnea Obstructive sleep apnea (adult) (pediatric) Diagnosis Altered mental status, unspecified altered mental status type Obstructive sleep apnea Obstructive sleep apnea (adult) (pediatric) Diagnosis Obstructive sleep apnea Obstructive sleep apnea (adult) (pediatric) Diagnosis Obstructive sleep apnea Obstructive sleep apnea (adult) (pediatric) Chief Complaint and Reason for Visit Chief Complaint BACK PAIN Chief Complaint ACUTE KIDNEY INJURY, WEAKNESS Reason for Visit Acute kidney injury Dizziness on standing Weakness Chief Complaint ZAY Reason for Visit Acute kidney injury Acute kidney injury superimposed on chronic kidney disease Altered mental status Dehydration Dizziness Metabolic encephalopathy Chief Complaint ZAY SHORTNESS OF BREATH Reason for Visit Acute kidney injury Acute kidney injury superimposed on chronic kidney disease Altered mental status Dehydration Dizziness Metabolic encephalopathy Chief Complaint Admit Date ALTERED MENTAL STATUS ACUTE ON CHRONIC R ENAL FAILU October 22, 2024 4:42pm Reason for Visit Admit Date 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 October 22, 2024 4:42pm Altered mental status October 22, 2024 4:42pm Chief Complaint Admit Date METABOLIC ENCEPHALOPATHY GENERALIZED WEA KNESS July 19, 2025 12:38pm Reason for Visit Admit Date Bacterial pneumonia July 19, 2025 12 :38pm COVID-19 virus infection July 19 12:38pm Dehydration July 19, 2025 12 :38pm Primary hypertension July 19, 2025 1 2:38pm Fall from standing July 19, 2025 12 :38pm Generalized weakness July 19, 2025 1 2:38pm Ground-level fall July 19, 2025 12 :38pm Metabolic encephalopathy July 19 12:38pm Pneumonia July 19, 2025 12 :38pm Pneumonia due to COVID-19 virus July 19, 2025 12:38pm Chronic renal failure, stage 3b July 19, 2025 12:38pm Dementia without behavioral disturbance July 19, 2025 12:38pm Prediabetes July 19, 2025 12 :38pm Acute metabolic encephalopathy July 192024 12:38pm Additional Source Comments (unrecognized sect ion and content) No Status Records FoundNo Status Records FoundNo Status Records FoundNo Status Records Found INFORMATION SOURCE (unrecogn ized section and content) DATE CREATED AUTHOR 04/11/2018 [facility] DATE CREATED AUTHOR AUTHOR'S ORGANIZ ATION 06/18/2021 [facility] DATE CREATED AUTHOR AUTHOR'S ORGANIZ ATION 10/06/2022 [facility] DATE CREATED AUTHOR AUTHOR'S ORGANIZ ATION 08/14/2025 [facility] Reason for Visit (unrecogniz ed section and content) Status Reason Specialty Diagnoses / Procedures Referred By Contact Referred To Contact Closed Heart and Vascul ar Diagnostics Diagnoses 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 Procedures Nuclear Stress Test - Pharmacological CV STRS TST XERS&/OR RX CONT ECG TRCG ONLY MYOCARDIAL SPECT MULTIPLE STUDIES Gorge Colon MD [address] [place] [address] [address] [facility] [address] [place] [address] Status Reason Specialty Diagnoses / Procedures Referred By Contact Referred To Contact Closed Heart and Vascul ar Diagnostics Diagnoses Dizziness Procedures Holter Monitor complete <48 hours Order Gorge Colon MD [address] [place] [address] [address] [place] [address] Status Reason Specialty Diagnoses / Procedures Referred By Contact Referred To Contact Closed Heart and Vascul ar Diagnostics Diagnoses Type 2 diabetes mellitus without complication, without long-term current use of insulin (HCC) Dizziness 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 Procedures Echocardiogram complete (M-Mode/2D) Gorge Colon MD [address] [place] [address] [address] Echo [address] [place] [address] Status Reason Specialty Diagnoses / Procedures Referre d By Contact Referred To Contact Closed Radiology Diagnoses Altered mental status, unspecified altered mental status type Obstructive sleep apnea Procedures MRI Brain Without IV Contrast Angelo Estrella MD [address] [facility], [place] [address] General Radiology [address] [place] [address] Status Reason Specialty Diagnoses / Procedures Referred By Contact Referred To Contact Closed Sleep Medicine Diagnoses Obstructive sleep apnea Procedures Polysomnography 4 or more parameters with CPAP Angelo Estrella MD [address] [facility] [address] [place] [address] [facility] [address] [facility] [address] [place] [address] Reason Comments Provider Referral Blood Infection Care Teams (unrecognized sec tion and content) Rental Counter Clerk Relationship Specialty Start Date End Date Xiao Valentine FNP [address] [facility] [address] [place] [address] PCP - General Nurse Practitioner-Family 02/09/21 Gorge Colon MD [address] [place] [address] Physician Cardiology 04/07/20 Nancy Underwood APRN HEALTH INFORMATION ASSISTANT [address] [place] [address] Nurse Practitioner Cardiology 04/07/20 Monalisa Arevalo APRN HEALTH INFORMATION ASSISTANT [address] [facility] [address] [place] [address] Nurse Practitioner Cardiology 08/10/20 Team Status: Active Member Role Status Dates LINDSEY LANDAVERDE Primary Care Provider Active Start : August 31, 2022 SARAHI MCNAMARA MD Emergency Provider Active Sta rt: August 31, 2022 TYREE GOODEN next of kin Active Team Status: Active Member Role Status Dates XIAO VALENTINE Primary Care Provider Active Start: June 01, 2023 VALENET PARKER MD Emergency Provider Active St art: June 01, 2023 MELISA CAREY MD Admit Provider Active Star t: June 01, 2023 MELISA CAREY MD Attending Provider Active Start: June 01, 2023 VENANCIO LU MD Other Provider Active Start: June 01, 2023 TYREE GOODEN next of kin Active WILEY MEEK Guarantor Active Team Status: Active Member Role Status Dates MONTRELL EDWARD MD Primary Care Provider Active Start: December 22, 2023 DENIZ MCPHERSON MD Emergency Provider Active Start : December 22, 2023 PRESTON BERKOWITZ MD Admit Provider Active Start: December 22, 2023 PRESTON BERKOWITZ MD Attending Provider Active Sta rt: December 22, 2023 TYREE GOODEN next of kin Active WILEY MEEK Guarantor Active Team Status: Active Member Role Status Dates MONTRELL EDWARD MD Primary Care Provider Active Start: December 22, 2023 DENIZ MCPHERSON MD Emergency Provider Active Start : December 22, 2023 PRESTON BERKOWITZ MD Admit Provider Active Start: December 22, 2023 PRESTON BERKOWITZ MD Attending Provider Active Sta rt: December 22, 2023 [facility] Attending Provider Active Start: [facility] 2023 TYREE GOODEN next of kin Active WILEY MEEK Guarantor Active Team Status: Active Member Role Status Dates MONTRELL EDWARD MD Primary Care Provider Active Start: October 22, 2024 BRYANNA GAFFNEY MD Emergency Provider Active St art: October 22, 2024 KHALIF ZAYAS MD Admit Provider Active Start : October 22, 2024 KHALIF ZAYAS MD Attending Provider Active S tart: October 22, 2024 TYREE GOODEN next of kin Active WILEY MEEK Guarantor Active Team Status: Active Member Role/Relationship Status Dates JAEL ASHLEY DO Primary Care Provider Active Start: July 19, 2025 BRYANNA GAFFNEY MD Emergency Provider Active St art: July 19, 2025 RL MARTINES MD Admit Provider Active Start : July 19, 2025 RL MARTINES MD Attending Provider Active S tart: July 19, 2025 TYREE GOODEN child Active WILEY MEEK Other Participant Active Goals (unrecognized section and content) Goals may be documented in a n alternate sectionGoals may be documented in an alternate sectionNone RecordedNone RecordedNone RecordedNone RecordedNone RecordedNone RecordedNone Recorded FOR RECORDS PERTAINING TO PATIENTS WHO ARE OR HAVE BEEN ENROLLED IN A CHEMICAL DEPENDENCY/SUBSTANCEABUSE PROGRAM, SOME INFORMATION MAY BE OMITTED. This clinical summary was aggregated from multiple sources. Caution should be exercised in using it in the provision of clinical care. This summary normalizes information from multiple sources, and as a consequence, information in this document may materially change the coding, format and clinical context of patient data. In addition, data may be omitted in some cases. CLINICAL DECISIONS SHOULD BE BASED ON THE PRIMARY CLINICAL RECORDS. [facility] [employer] [facility]. provides no warranty or guarantee of the accuracy or completeness of information in this document.
[2025-09-21 17:40] VITALS: BP 153/106; PULSE 103; RESP 18; TEMP 36.3; O2SAT 95
--- NOTE | 2025-09-21 18:14 | HP.PCM.HOS_ITS ---
HPI - General General Date of Admission: 09/21/25 Date of Service: 09/21/25 Chief Complaint: Right femoral neck fracture HPI Narrative PÉREZ MEEK, is a 85 M who presents to [facility] as a direct admission from [facility], patient lives in assisted living and sustained a fall due to dizziness and landed on his right hip, he was unable to bear weight on his right hip and was taken to the emergency room there for evaluation, workup in the ER showed a nondisplaced right femoral neck fracture, labs were remarkable for a creatinine of 1.3 and a BUN of 23, UA was unremarkable except for some bacteria in the urine, white blood cell count was normal at 9.5 and hemoglobin was 12.3. Patient's EKG obtained showed a normal sinus rhythm with a right bundle branch block, chest x-ray showed a persistent left lower lobe infiltrate suspicious for atelectasis. Patient's medical history includes essential hypertension, dementia, type 2 diabetes, hyperlipidemia, and GERD. According to paperwork from viktoria padron, patient is a full code. [facility] Medical History (Updated 09/21/25 @ 18:[address] 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 1 11/22/24 Unknown History divalproex 125 mg tablet,delayed 125 mg PO DAILY mood 09/21/25 Unknown History release donepezil 5 mg tablet 5 mg PO DAILY dementia 09/21 Unknown History fenofibrate 150 mg capsule 145 mg PO DAILY diet Unknown History finasteride 5 mg tablet 5 mg PO DAILY prostate 09/21 Unknown History hydralazine 25 mg tablet 25 mg PO TID PRN BP 09/21/25 Unknown History lisinopril 10 mg tablet 10 mg PO DAILY BP 09/21/25 U nknown History loperamide 2 mg capsule 2 mg PO Q6H PRN diarrhea 05/09 Unknown History (Anti-Diarrheal (loperamide)) mecobalamin (vitamin B12) 500 mcg 500 mcg PO DAILY sup plement 09/21/25 Unknown History chewable tablet metformin 500 mg tablet 500 mg PO BID diabetes 09/21 Unknown History naproxen 375 mg tablet 375 mg PO BID nsaid 09/21/25 Unknown History omeprazole 20 mg capsule,delayed 20 mg PO DAILY gerd 1 11/22/24 Unknown History release oxybutynin chloride 10 mg 10 mg PO DAILY bladder 09/21 Unknown History tablet,extended release 24 hr pravastatin 10 mg tablet 10 mg PO QHS cholesterol 05/09 Unknown History tamsulosin 0.4 mg capsule 0.4 mg PO DAILY bladder 05/09 Unknown History Allergy/AdvReac Type Severity Reaction Status Date / Time No Known Allergies Allergy Verified 09/21/25 17:42 Surgical History (Updated 09/21/25 @ 17:40 by Bessie Fermin) History of appendectomy Social History Smoking Status: Former smoker ROS ROS Narrative Patient is a poor informant, he was unable to answer majority of questions that I asked of him Review of Systems ROS Unobtainable: due to mental status Vital Signs Vital Signs Vital Signs: 09/21/25 17:35 09/21/25 17:40 Temperature 97.4 F L Temperature Source Temporal Pulse Rate 103 H Respiratory Rate 18 Respiratory Effort Normal Non-Labored Respiratory Depth Normal Respiratory Pattern Normal Blood Pressure 153/106 H Blood Pressure Mean 121 Blood Pressure Source Monitor Blood Pressure Position Semi-Fowlers Blood Pressure Location Right Arm Pulse Ox 95 Oxygen Delivery Method Nasal Cannula Nasal Cannula Oxygen Flow Rate (L/min) 2 2 Weight Weight: 85.842 kg Body Mass Index (BMI) 27.1 Physical Exam Const alert, no apparent distress, average body habitus and healthy appearing General Appearance: cooperative, well kempt and well developed Orientation / Consciousness: awake, oriented to person and oriented to place HEENT normocephalic, head/scalp atraumatic, hearing grossly normal bilaterally and moist oral mucous membranes Eyes PERRL, EOMs intact bilaterally and conjunctivae normal Neck supple, no JVD, thyroid normal and no carotid bruits General: trachea midline Resp normal respiratory effort, no retractions, no use of accessory muscles and clear to auscultation bilaterally Auscultation: Negative for rales, rhonchi or wheezes Cardio regular rate, regular rhythm, S1 normal heart sound, S2 normal heart sound, no murmurs, no rub and no gallops GI normal to inspection, nondistended, normoactive bowel sounds, soft to palpation, non-tender and non-distended Extremity no clubbing, cyanosis or edema Extremity Narrative: Patient has discomfort when moving right hip Skin no rashes or lesions noted General Skin Exam: no breakdown Neuro CN's II-XII intact bilaterally, moves all extremities, no focal motor deficits and no sensory deficits noted Neuro Narrative: Patient has mild to moderate cognitive impairment Sensorium / Orientation: awake, alert, oriented to person and oriented to place Speech: speech normal Psych Psych Narrative: Patient exhibits mild confusion and mild/moderate cognitive impairment Assessment & Plan Assessment/Plan (1) Nondisplaced fracture of neck of right femur: (2) Alzheimer's dementia: (3) Essential hypertension: PLAN: Plan 1. Nondisplaced right femoral neck fracture secondary to osteoporosis and mechanical fall-I have reviewed the patient's labs and imaging studies, I have asked nursing to obtain a copy of the EKG the patient had done at [facility]. I also talked with orthopedic surgery and anesthesia, anesthesia did not feel that getting an echocardiogram was necessary at this point unless the EKG showed evidence of an old NC. Patient will be n.p.o. after midnight, I feel presently that the patient is stable for surgery #2 Alzheimer's dementia-complicates care, management, recovery, and prognosis #3 GERD-patient is currently on omeprazole, he is also on Tagamet which I will discontinue #4 essential hypertension-patient will remain on his present blood pressure medications and his blood pressure will be monitored #5 elevated creatinine-I do not have a baseline on the patient's creatinine, BMP will be repeated in the morning #6 hyperlipidemia-patient is on fenofibrate and pravastatin-I will continue these medications #7 type 2 diabetes-patient is on metformin currently, I will place the patient on sliding scale insulin and have fingerstick blood sugars monitored #8 BPH-patient is on Flomax #9 atelectasis at the left lung base-I will place the patient on DuoNeb aerosol treatments 3 times daily Total clinical time spent by myself addressing the patient's medical issues, reviewing all of his data, and collaborating with patient's care team: 75 minutes Charges/Coding Visit Charges Inpatient E&M: 45603 Init Hosp L3
--- NOTE | 2025-09-21 18:17 | NURSING ---
Joe catheter and IV present upon admission from [facility] (pt was direct admit)
--- NOTE | 2025-09-21 19:43 | CONS.ORTHO ---
HPI Consult Data Date of Consult: 09/21/25 HPI Narrative HPI Narrative: PÉREZ MEEK, is a 85 M who presents with a displaced R femoral neck fracture after a mechanical fall. Seen in [place]. I accepted TF as family lives in [place] per the ED doc who called me. Was seen and admitted by the hospitalist. Generally unknown baseline but came from a nursing facility . [facility] Medical History (Updated 09/21/25 @ 19:43 by Michael Jeff MD) Displaced fracture of right femoral neck Hiatal hernia Syncope Diabetes Kidney disease GERD (gastroesophageal reflux disease) Asthma Sleep apnea Hypertension Dementia Home Medications ?Medication ?Instructions ?Recorded ?Last Taken ?Type Lactobacillus acidophilus 1 tab PO DAILY probiotic 09/21/25 Unknown History (Acidophilus chewable tablet) aspirin 81 mg tablet,delayed 81 mg PO DAILY adult regimen 09/21/25 Unknown History release (Adult Aspirin Regimen) cholecalciferol (vitamin D3) 50 2,000 unit PO DAILY supplement 09/21/25 Unknown History mcg (2,000 unit) capsule (D3-2000) cimetidine 400 mg tablet 400 mg PO BID 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 09/21/25 Unknown History divalproex 125 mg tablet,delayed 125 mg PO DAILY mood 09/21/25 Unknown History release donepezil 5 mg tablet 5 mg PO DAILY dementia 09/21/25 Unknown History fenofibrate 150 mg capsule 145 mg PO DAILY diet 09/21/25 Unknown History finasteride 5 mg tablet 5 mg PO DAILY prostate 09/21/25 Unknown History hydralazine 25 mg tablet 25 mg PO TID PRN BP 09/21/25 Unknown History lisinopril 10 mg tablet 10 mg PO DAILY BP 09/21/25 Unknown History loperamide 2 mg capsule 2 mg PO Q6H PRN diarrhea 09/21/25 Unknown History (Anti-Diarrheal (loperamide)) mecobalamin (vitamin B12) 500 mcg 500 mcg PO DAILY supplement 09/21/25 Unknown History chewable tablet metformin 500 mg tablet 500 mg PO BID diabetes 09/21/25 Unknown History naproxen 375 mg tablet 375 mg PO BID nsaid 09/21/25 Unknown History omeprazole 20 mg capsule,delayed 20 mg PO DAILY gerd 09/21/25 Unknown History release oxybutynin chloride 10 mg 10 mg PO DAILY bladder 09/21/25 Unknown History tablet,extended release 24 hr pravastatin 10 mg tablet 10 mg PO QHS cholesterol 09/21/25 Unknown History tamsulosin 0.4 mg capsule 0.4 mg PO DAILY bladder 09/21/25 Unknown History Allergy/AdvReac Type Severity Reaction Status Date / Time No Known Allergies Allergy Verified 09/21/25 17:42 Surgical History (Updated 09/21/25 @ 17:40 by Bessie Fermin) History of appendectomy Social History Smoking Status: Former smoker Vital Signs Vital Signs Vital Signs: 09/21/25 17:35 09/21/25 17:40 Temperature 97.4 F L Temperature Source Temporal Pulse Rate 103 H Respiratory Rate 18 Respiratory Effort Normal Non-Labored Respiratory Depth Normal Respiratory Pattern Normal Blood Pressure 153/106 H Blood Pressure Mean 121 Blood Pressure Source Monitor Blood Pressure Position Semi-Fowlers Blood Pressure Location Right Arm Pulse Ox 95 Oxygen Delivery Method Nasal Cannula Nasal Cannula Oxygen Flow Rate (L/min) 2 2 Weight Weight: 189 lb 4 oz Body Mass Index (BMI) 27.1 Physical Exam Const alert, no apparent distress and well nourished; Negative for oriented x3 General Appearance: cooperative Extremity normal capillary refill Extremity Narrative: R LE shortened, ER. closed thigh soft. nvi. able to wiggle toes, df and pf the foot. able to follow commands but dementia at baseline. foot warm well perfused, no knee pain, pain with rotation of the leg. Assessment & Plan Assessment/Plan (1) Displaced fracture of right femoral neck: PLAN: 85 yr M with right displaced femoral neck fracture. 2 person phone consent with medical decision maker Emperatriz. I explained the diagnosis prognosis different treatment options available to the patient including nonoperative management. Typically these are treated with surgery to aid in palliation pain control as well as for mobilization despite the elderly high risk patient. We are still waiting on echocardiogram to be able to proceed with surgery so the patient can eat today n.p.o. at midnight possible surgery tomorrow or the next day depending on the echocardiogram when that gets done. Discussed the risks of surgery including but not limited to infection pain stiffness bleeding fracture with making the femoral neck cut cementing VTE instability dislocation where another risks like or other complications Emperatriz understands wished to proceed did 2 person consent form for surgery right hip hemiarthroplasty cemented lateral approach. She understands no further questions or concerns and marked the right hip. Pros and cons risks and benefits were discussed with the patient including but not limited to infection, pain, stiffness, bleeding, damage to surrounding structures, neurovascular injury, recurrence or retear, failure or wear of hardware or fixation, instability, fracture, deep vein thrombosis and pulmonary embolism, anesthetic risks, , patient dissatisfaction, need for further surgery and other risks. Patient understood and wished to proceed with surgery, and signed the informed consent documentation.
[2025-09-21 22:25] VITALS: PULSE 103; RESP 24; O2SAT 94
[2025-09-21 23:35] VITALS: O2SAT 95
[2025-09-22] VITALS (9 sets, daily range): BP systolic 106–129; BP diastolic 68–86; PULSE 64–100; RESP 16–18; TEMP 36.2–37.1; O2SAT 93–95
[2025-09-22] MEDS: Lactated Ringers 1,000 ML 75 ML IV ×3 (00:35→22:24)
--- NOTE | 2025-09-22 05:55 | EKG12_ITS ---
Test Reason : HTN Blood Pressure : */* mmHG Vent. Rate : 94 BPM Atrial Rate : 94 BPM P-R Int : 190 ms QRS Dur : 120 ms QT Int : 374 ms P-R-T Axes : 33 4 17 degrees QTcB Int : 467 ms Normal sinus rhythm Right bundle branch block Abnormal ECG Confirmed by Jaciel Underwood ([id number]), loan expeditor NATHANIEL LUCAS ([id number]) on 09/23/2025 8:45:53 AM Referred By: [place] Confirmed By: Jaciel Underwood
[2025-09-22 06:25] LABS: Hematocrit 36.4 % (40-54); Hemoglobin 12.1 g/dL (13.0-16.5); Immature Granulocytes Count 0.080 X10^3/uL (0.0-0.0); Mean Corp Hgb Conc 33.2 g/dL (32-36); Mean Corpuscular Volume 95.0 fL (80-94); Mean Platelet Vol. 9.3 fl (6.2-12.0); NRBC Flagged by Analyzer 0 % (0-5); Platelet Count 244 K/mm3 (150-450); RBC Distribution Width CV 14.6 % (11.6-14.6); RBC Distribution Width SD 50.6 fl (35.1-43.9); Red Blood Count 3.83 M/mm3 (4.6-6.2); White Blood Count 15.6 K/mm3 (4.4-11.0)
[2025-09-22 06:49] LABS: AST(SGOT) 36 U/L (<=37); Alanine Aminotransfer ALT/SGPT 26 U/L (<=46); Albumin, Serum 3.5 g/dL (3.4-4.8); Alkaline Phosphatase 52 U/L (40-129); Anion Gap 10 (5-15); BUN 22 mg/dL (4-19); BUN/Creat Ratio 20.8 RATIO (10-20); Calcium,Total 8.8 mg/dL (7.6-11.0); Carbon Dioxide 23.1 mmol/L (21.0-32.0); Chloride 104 mmol/L (98-108); Estimated Creatinine Clearance 54.01 ml/min (50-250); Globulin 2.7 g/dL (2.2-4.2); Glucose 130 mg/dL (70-99); Potassium 4.5 mmol/L (3.3-5.1)
[2025-09-22] MEDS: Cholecalciferol (VIT D3) 25 MCG TABLET (1,000 UNITS) 50 MCG PO (09:34)
[2025-09-22] MEDS: Divalproex Sodium 125 MG Tablet PO (09:35)
--- NOTE | 2025-09-22 11:36 | CASEMGMT ---
Addendum entered by Nalini Rowe 09/22/25 12:01: NATHALIE OLSON into pt room, introduced self to pt and role. Pt did not answer back. Provided pt dtr with SNF lists for [facility]. Pt dtr to review and RN WESLEY to check back with dtr post surgery and therapy evals. Addendum entered by Nalini Rowe 09/22/25 11:55: NATHALIE OLSON Assessment: Received returned tc from pt dtr for initial transition planning/care coordination assessment. RN WESLEY introduced self and role at [facility], pt dtr voices understanding and consents to assessment. Care providers, pharmacy, and demographics verified/updated. Admitting Dx: R hip fx Strata Score: 1 PCP:ISABELLE Baird Specialists:Denies Preferred Pharmacy: Dtr unaware of pharmacy used, states it is mail order. Insurance:[employer], MMO Prescription Benefit: yes LNOK: Emperatriz Moser, dtr Living Arrangements: Pt lives in [place] at [facility] in [place]. Pt dtr states pt is on the plan where nursing administers meds and they assist pt with all ADL/IADLs. Transportation: Pt does not drive. DME:[facility] HHC/SNF:Pt has had HHC in the past but dtr cannot recall name of the agency. She states pt has been to [facility], but she will not send him back there. Dtr states she gave POA papers to nurses station this am designating her as POA. Pt to have OR today. Dtr is willing to look at SNF lists in case pt will need skilled care. She states that she would like lists for [facility]. She states she is actually in the waiting room. RN CM to deliver lists once dc assistant professor of religion creates them. CM to follow. Advised pt dtr to ask CM if any further questions/concerns/needs arise, voices understanding. Pt Dtr Goal: TBD pending how OR goes Plan: TBD pending surgery and therapy evtaisha. Mariann ZELAYA CM Original Note: TC to Emperatriz who is noted to be decision make for pt as pt has dementia, left requesting a returned call. No DPOA on file.
--- NOTE | 2025-09-22 11:55 | CASEMGMT ---
Discharge Planning A list of SNF providers including quality and resource use data and consistent with the patient's preferred geographic region ([id number]), medical needs, and insurance network was created in [employer] Guide.? This list was provided to the RN CM. Valarie Trejo, Discharge Planning Asst.
--- NOTE | 2025-09-22 18:47 | PCM.PN.ORT ---
Subjective Subjective PAD 1 right NOF fracture. Objective Data Objective Data Vital Signs: Vital Signs Temp Pulse Resp BP Pulse Ox O2 Del Method O2 Flow Rate 98.8 F 94 16 119/86 H 95 Nasal Cannula 2 09/22/25 14:45 09/22/25 14:45 09/22/25 14:45 09/22/25 14:45 09/22/25 14:45 09/22/25 14:45 09/22/25 14:45 Oxygen Flow Rate (L/min) 2 Oxygen Delivery Method Nasal Cannula Weight: 189 lb 4 oz Body Mass Index (BMI) 27.1 Intake & Output: Intake and Output for Last 24 Hours 09/20/25 09/21/25 09/22/25 23:59 23:59 23:59 Intake Total 1253.75 / 1253.75 Output Total 450 / 450 Balance 803.75 / 803.75 Lab / Micro Data 09/22/25 05:41 09/22/25 05:41 Labs: Laboratory Results - last 24 hr 09/22/25 05:41: WBC 15.6 H, RBC 3.83 L, Hgb 12.1 L, Hct 36.4 L, MCV 95.0 H, MCH 31.6, MCHC 33.2, RDW Std Deviation 50.6 H, RDW Coeff of Latrice 14.6, Plt Count 244, MPV 9.3, Immature Gran % (Auto) 0.500, Neut % (Auto) 83.1 H, Lymph % (Auto) 9.4 L, [place] % (Auto) 5.5, Eos % (Auto) 1.2, Baso % (Auto) 0.3, Absolute Neuts (auto) 13.0 H, Absolute Lymphs (auto) 1.47, Nucleated RBC % 0, Sodium 137, Potassium 4.5, Chloride 104, Carbon Dioxide 23.1, Anion Gap 10, BUN 22 H, Creatinine 1.07, Estim Creat Clear Calc 54.01, Est GFR (MDRD) Non-Af 69, BUN/Creatinine Ratio 20.8 H, Glucose 130 H, Calcium 8.8, Total Bilirubin 0.99, AST 36, ALT 26, Alkaline Phosphatase 52, Total Protein 6.2, Albumin 3.5, Globulin 2.7, Albumin/Globulin Ratio 1.3 09/22/25 06:00: POC Glucose 114 H 09/22/25 10:55: POC Glucose 140 H 09/22/25 16:25: POC Glucose 164 H Assessment & Plan Assessment/Plan (1) Displaced fracture of right femoral neck: PLAN: 85 yr M with R hip fracture. plan for surgery tomorrow AM 1st case 730am. npo at [place].
--- NOTE | 2025-09-22 18:55 | PN.HOSP_ITS ---
Reason for Visit Chief Complaint: Right femoral neck fracture Subjective Subjective Patient was seen and examined today, he is resting quietly. Patient's white blood cell count today was 15.6, hemoglobin was 12.1. Patient's BUN was 22 and his creatinine was 1.07. I talked briefly with orthopedic surgery today, and his plan that he will go to surgery tomorrow morning for right hip hemiarthroplasty. Objective Data Objective Data Vital Signs: Vital Signs Temp Pulse Resp BP Pulse Ox O2 Del Method O2 Flow Rate 98.8 F 94 16 119/86 H 95 Nasal Cannula 2 09/22/25 14:45 09/22/25 14:45 09/22/25 14:45 09/22/25 14:45 09/22/25 14:45 09/22/25 14:45 09/22/25 14:45 Oxygen Flow Rate (L/min) 2 Oxygen Delivery Method Nasal Cannula Weight: 85.842 kg Body Mass Index (BMI) 27.1 Intake & Output: Intake and Output for Last 24 Hours 09/20/25 09/21/25 09/22/25 23:59 23:59 23:59 Intake Total 1253.75 / 1253.75 Output Total 450 / 450 Balance 803.75 / 803.75 Lab / Micro Data 09/22/25 05:41 09/22/25 05:41 Labs: Laboratory Results - last 24 hr 09/22/25 05:41: WBC 15.6 H, RBC 3.83 L, Hgb 12.1 L, Hct 36.4 L, MCV 95.0 H, MCH 31.6, MCHC 33.2, RDW Std Deviation 50.6 H, RDW Coeff of Latrice 14.6, Plt Count 244, MPV 9.3, Immature Gran % (Auto) 0.500, Neut % (Auto) 83.1 H, Lymph % (Auto) 9.4 L, [place] % (Auto) 5.5, Eos % (Auto) 1.2, Baso % (Auto) 0.3, Absolute Neuts (auto) 13.0 H, Absolute Lymphs (auto) 1.47, Nucleated RBC % 0, Sodium 137, Potassium 4.5, Chloride 104, Carbon Dioxide 23.1, Anion Gap 10, BUN 22 H, Creatinine 1.07, Estim Creat Clear Calc 54.01, Est GFR (MDRD) Non-Af 69, BUN/Creatinine Ratio 20.8 H, Glucose 130 H, Calcium 8.8, Total Bilirubin 0.99, AST 36, ALT 26, Alkaline Phosphatase 52, Total Protein 6.2, Albumin 3.5, Globulin 2.7, Albumin/Globulin Ratio 1.3 09/22/25 06:00: POC Glucose 114 H 09/22/25 10:55: POC Glucose 140 H 09/22/25 16:25: POC Glucose 164 H Physical Exam Narrative alert, no apparent distress, average body habitus and healthy appearing General Appearance: cooperative, well kempt and well developed Orientation / Consciousness: awake, oriented to person and oriented to place HEENT normocephalic, head/scalp atraumatic, hearing grossly normal bilaterally and moist oral mucous membranes Eyes PERRL, EOMs intact bilaterally and conjunctivae normal Neck supple, no JVD, thyroid normal and no carotid bruits General: trachea midline Resp normal respiratory effort, no retractions, no use of accessory muscles and clear to auscultation bilaterally Auscultation: Negative for rales, rhonchi or wheezes Cardio regular rate, regular rhythm, S1 normal heart sound, S2 normal heart sound, no murmurs, no rub and no gallops GI normal to inspection, nondistended, normoactive bowel sounds, soft to palpation, non-tender and non-distended Extremity no clubbing, cyanosis or edema Extremity Narrative: Patient has discomfort when moving right hip Skin no rashes or lesions noted General Skin Exam: no breakdown Neuro CN's II-XII intact bilaterally, moves all extremities, no focal motor deficits and no sensory deficits noted Neuro Narrative: Patient has mild to moderate cognitive impairment Sensorium / Orientation: awake, alert, oriented to person and oriented to place Speech: speech normal Psych Psych Narrative: Patient exhibits mild confusion and mild/moderate cognitive impairment Assessment & Plan Assessment/Plan (1) Nondisplaced fracture of neck of right femur: (2) Alzheimer's dementia: (3) Essential hypertension: PLAN: Plan 1. Nondisplaced right femoral neck fracture secondary to osteoporosis and mechanical fall-patient is scheduled for a right hip hemiarthroplasty tomorrow- patient appears medically stable at this time #2 Alzheimer's dementia-complicates care, management, recovery, and prognosis #3 GERD-patient is currently on a PPI #4 essential hypertension-patient will remain on his present blood pressure medications and his blood pressure will be monitored #5 elevated creatinine-on admission-corrected at this time #6 hyperlipidemia-patient is on fenofibrate and a statin #7 type 2 diabetes-patient is on metformin currently, I will place the patient on sliding scale insulin and have fingerstick blood sugars monitored #8 BPH-patient is on Flomax #9 atelectasis at the left lung base-I will place the patient on DuoNeb aerosol treatments 3 times daily #10 hypoxia-probably secondary atelectasis, patient is on low-flow oxygen at this time, pulse ox will be monitored Total clinical time spent by myself addressing the patient's medical issues, reviewing all of his data, and collaborating with patient's care team: 35 minutes Charges/Coding Visit Charges Inpatient E&M: 60665 Subs Hosp L2
[2025-09-22] MEDS: Heparin Injection (Vial) 5,000 UNIT/ML VIAL 5000 UNIT SC (22:14)
[2025-09-23] VITALS (20 sets, daily range): BP systolic 75–137; BP diastolic 49–89; PULSE 64–109; RESP 16–91; TEMP 36.1–37.1; O2SAT 89–99; BMI 27.5
--- NOTE | 2025-09-23 06:56 | PCM.PRE.AN2 ---
ASA Classification* ASA Classification ASA Classification: 3 and E Assessment & Plan Anesthesia* Anesthesia Assessment Anesthesia Assessment: Discussed sedation and/or anesthesia options, risks, benefits, and alternatives with patient/parents/legal guardian/POA. Questions invited. The patient/parents/legal guardian/POA seems to understand and agrees to proceed with anesthesia plan. Reviewed the physical assessment, medical history, allergy history and patient home medications list prior to surgery/procedure/anesthetic and documented any changes. Performed airway and anesthesia risk assessments. Anesthesia Type Anesthesia Type: General History Source History Obtained from:: Patient and Chart Anesthesia Focused Assessment* Temperature: 98.7 F Pulse Rate: 99 Blood Pressure: 130/81 Respiratory Rate: 91 Pulse Ox: 97 Oxygen Delivery Method: Room Air Oxygen Flow Rate (L/min): 3 Airway Assessment Mouth opens: >3 cm Mallampati Score: II Teeth Condition: Caps/Crowns and Chipped/Broken Neck Range of motion (ROM): Limited ROM Labs Anesthesia Preop lab: CBC WBC, (4.4-11.0) 15.6 K/mm3 H 09/22/25, 05:41 RBC, (4.6-6.2) 3.83 M/mm3 L 09/22/25, 05:41 Hgb, (13.0-16.5) 12.1 g/dL L 09/22/25, 05:41 Hct, (40-54) 36.4 % L 09/22/25, 05:41 Plt Count, (150-450) 244 K/mm3 09/22/25, 05:41 CHEMISTRY Potassium, (3.3-5.1) 4.5 mmol/L 09/22/25, 05:41 Sodium, (133-145) 137 mmol/L 09/22/25, 05:41 BUN, (4-19) 22 mg/dL H 09/22/25, 05:41 Creatinine, (0.70-1.20) 1.07 mg/dL 09/22/25, 05:41 Glucose, (70-99) 130 mg/dL H 09/22/25, 05:41 POC Glucose, (74-106) 148 mg/dL H Today, 05:42 COAG Pre-Assessment Diagnosis/Proposed Procedure Planned Operative Procedure(s): Right hip Evens arthroplasty Anesthesia History Anesthesia History - workers compensation legal secretary: Anesthesia History - workers compensation legal secretary Hx Hospitalization Any Problems With Anesthesia No 09/21/25 18:07 Cholinesterase deficiency No 09/21/25 18:07 You/Your Family Experience No 09/21/25 18:07 fever (hyperthermia) with Relationship Recent Exposure to Contagious Yes: covid in last 3 months 09/21/25 18:07 Disease Does patient have nerve No 09/21/25 18:07 stimulator Patient instructed to have device shut off --Does patient have Pacemaker No 09/23/25 05:34 or ICD? When Was Last Pacemaker Check QUESTION #4 FULL TEXT: You/Your Family Experience fever (hyperthermia) with Anesthesia Last Oral Intake Last Oral intake: Last Oral Intake NPO since 00:00 09/23/25 05:34 Meds taken in AM with sips of No 09/23/25 05:34 water? Meds patient instructed to take am of surgery PONV PONV - workers compensation legal secretary: PONV - workers compensation legal secretary Female HX of Motion Sickness HX of N/V After Surgery Non-Smoker Duration of Surgery greater than 60 minutes Number of Risk Factors PONV Score Height & Weight Height & Weight: Anesthesia: Height & Weight Height 5 ft 10 in 09/23/25 05:34 Weight: 87.09 kg 09/23/25 05:34 Body Mass Index (BMI) 27.5 09/23/25 05:34 Respiratory Assessment Respiratory Assessment - workers compensation legal secretary: Respiratory Tract Infection Hx - workers compensation legal secretary Hx Respiratory Tract Infection Yes: covid in last 3 months 09/21/25 18:07 STOP Sleep Apnea STOP Sleep Apnea - workers compensation legal secretary: STOP Sleep Apnea - workers compensation legal secretary Hx Hypertension Yes 09/21/25 17:35 Hx Sleep Apnea Yes 09/21/25 17:35 CPAP No 09/21/25 17:35 BIPAP No 09/21/25 17:35 Do you snore loudly (louder than talking or can be heard Do you often feel tired/ fatigued/ sleepy during daytime? Has anyone observed you stop breathing during sleep? STOP Results Positive 09/21/25 17:35 QUESTION #5 FULL TEXT : Do you snore loudly (louder than talking or can be heard through closed doors)? Tobacco Use History Tobacco Use History - workers compensation legal secretary: Tobacco Use History - workers compensation legal secretary Tobacco Use Smoking Status Former smoker 09/21/25 17:35 Hx Tobacco Use No 09/21/25 17:35 Years Smoking Packs Smoked per Day Smoking Cessation Date was No - quit smoking greater 09/21/25 17:35 within the last 15 years than 15 years ago Hx Smoking Cessation Date Hx Smoking Cessation Counseling Hematologic Medial History Hematologic Hx - workers compensation legal secretary: Hematologic Medical Hx - technical implementation lead Hx of Blood Transfusion No 09/21/25 17:35 Hx of Transfusion in last 3 No 09/21/25 17:35 Months Date of Last Transfusion (if within last 3 months) Ever experience any problems No 09/21/25 17:35 with transfusion(s)? Specify any problems Hx of Preganancy in last 3 N/A 09/21/25 17:35 Months Nurse Filling Out Transfusion [id number] 09/21/25 17:35 & Questions: Date: 09/21/25 09/21/25 17:35 Time: 17:42 09/21/25 17:35 Patient unable to answer at this time (ie. confused, unrespo /Reproduction History /Reproductive History - workers compensation legal secretary: /Reproductive Hx- workers compensation legal secretary Hx Now Gestational Age (in weeks): EDC: Hx Hx Para Hx Section SAB Does the father of the baby or his family experience fever w Father of the baby Malignant Hypertension history comment Active Medications Active Medications: Current Medications Generic Name Dose Route Start Last Admin Trade Name Freq PRN Reason Stop Dose Admin Acetaminophen 650 mg 09/21/25 18:52 Acetaminophen 325 Mg Tablet PO Q6H PRN PRN Pain 1-10 Or Fever >100.7 Albuterol/Ipratropium 3 ml 09/21/25 22:00 09/22/25 19:12 Ipratropium/Albuterol Sulfate 3 Ml Ampul.Neb INHALATION 3 ml TID.RT OSVALDO Administration Aspirin 81 mg 09/22/25 08:00 09/22/25 09:34 Aspirin E.C. 81 Mg Tablet PO Not Given BREAKFAST OSVALDO Cholecalciferol 50 mcg 09/22/25 10:00 09/22/25 09:34 Cholecalciferol (Vit D3) 25 Mcg Tablet (1,000 Units) PO 50 mcg DAILY OSVALDO Administration Cyanocobalamin (Vitamin B12) 500 mcg 09/22/25 10:00 09/22/25 09:34 Cyanocobalamin 500 Mcg Tablet PO 500 mcg DAILY OSVALDO Administration Divalproex Sodium 125 mg 09/22/25 10:00 09/22/25 09:35 Divalproex Sodium 125 Mg Tablet PO 125 mg DAILY OSVALDO Administration Donepezil HCl 5 mg 09/21/25 22:00 09/22/25 22:14 Donepezil Hcl 5 Mg Tablet PO 5 mg QHS OSVALDO Administration Fenofibrate 145 mg 09/22/25 10:00 09/22/25 09:35 Fenofibrate 145 Mg Tablet PO 145 mg DAILY OSVALDO Administration Finasteride 5 mg 09/22/25 10:00 09/22/25 09:35 Finasteride 5 Mg Tablet PO 5 mg DAILY OSVALDO Administration Glucagon 1 mg 09/21/25 18:52 Glucagon 1 Mg/Ml Syringe IM X1 PRN HYPOGLYCEMIA Protocol Heparin Sodium (Porcine) 5,000 unit 09/21/25 22:00 09/22/25 22:14 Heparin Injection (Vial) 5,000 Unit/Ml Vial SC 5,000 unit Q12 OSVALDO Administration Hydromorphone HCl 0.5 - 1 mg 09/21/25 18:52 09/22/25 12:37 Hydromorphone 1 Mg/Ml Syringe IV 0.5 mg Q3H PRN PRN Administration Pain Score 6-10 Sodium Chloride 250 mls @ 15 mls/hr 09/21/25 17:42 IV .[id number] PRN Saline Flush Sodium Chloride 250 mls @ 15 mls/hr 09/21/25 17:42 IV .[id number] PRN Additional IVPB Infusion Dextrose 250 mls @ 0 mls/hr 09/21/25 18:52 Dextrose 10%-Water IV .Q0M PRN HYPOGLYCEMIA Protocol As Directed Lactated Ringer's 1,000 mls @ 75 mls/hr 09/21/25 18:52 09/23/25 06:17 IV 0 mls/hr .[id number] OSVALDO Infusion Lactated Ringer's 1,000 mls @ 15 mls/hr 09/23/25 07:00 IV .Q48H [facility] Insulin Human Lispro 0 unit 09/22/25 07:00 09/23/25 06:02 Insulin Lispro 100 Unit/Ml Insuln.Pen SC Not Given TIDAC [facility] Protocol Lisinopril 10 mg 09/22/25 10:00 09/22/25 09:34 Lisinopril 10 Mg Tablet PO 10 mg DAILY OSVALDO Administration Protocol Loperamide HCl 2 mg 09/21/25 18:52 Loperamide 2 Mg Capsule PO Q6H PRN PRN DIARRHEA Ondansetron HCl 4 mg 09/21/25 18:52 Ondansetron 4 Mg/2 Ml Vial IV Q8H PRN PRN NAUSEA/VOMITING Oxycodone HCl 10 mg 09/21/25 18:52 Oxycodone 5 Mg Tablet PO Q4H PRN PRN Pain Score 4-10 Pantoprazole Sodium 20 mg 09/22/25 10:00 09/22/25 09:34 Pantoprazole Sodium 20 Mg Tablet PO 20 mg DAILY OSVALDO Administration Pravastatin Sodium 10 mg 09/21/25 22:00 09/22/25 22:14 Pravastatin 20 Mg Tablet PO 10 mg QHS OSVALDO Administration Sodium Chloride 10 - 40 ml 09/21/25 17:42 0.9% Saline Lock 10 Ml Syringe IV UD PRN SALINE FLUSH Tamsulosin HCl 0.4 mg 09/22/25 10:00 09/22/25 09:34 Tamsulosin Hcl 0.4 Mg Capsule PO 0.4 mg DAILY OSVALDO Administration Temazepam 15 mg 09/21/25 18:52 Temazepam 15 Mg Capsule PO QHS PRN PRN INSOMNIA Tolterodine Tartrate 2 mg 09/22/25 10:00 09/22/25 09:34 Tolterodine Tartrate 2 Mg Cap.Sa PO 2 mg DAILY OSVALDO Administration [facility] Medical History Displaced fracture of right femoral neck Hiatal hernia Syncope Diabetes Kidney disease GERD (gastroesophageal reflux disease) Asthma Sleep apnea Hypertension Dementia Home Medications ?Medication ?Instructions ?Recorded ?Last Taken ?Type Lactobacillus acidophilus 1 tab PO DAILY probiotic 09/21/25 Unknown History (Acidophilus chewable tablet) aspirin 81 mg tablet,delayed 81 mg PO DAILY adult regimen 09/21/25 Unknown History release (Adult Aspirin Regimen) cholecalciferol (vitamin D3) 50 2,000 unit PO DAILY supplement 09/21/25 Unknown History mcg (2,000 unit) capsule (D3-2000) cimetidine 400 mg tablet 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 09/21/25 Unknown History divalproex 125 mg tablet,delayed 125 mg PO DAILY mood 09/21/25 Unknown History release donepezil 5 mg tablet 5 mg PO DAILY dementia 09/21/25 Unknown History fenofibrate 150 mg capsule 145 mg PO DAILY diet 09/21/25 Unknown History finasteride 5 mg tablet 5 mg PO DAILY prostate 09/21/25 Unknown History hydralazine 25 mg tablet 25 mg PO TID PRN BP 09/21/25 Unknown History lisinopril 10 mg tablet 10 mg PO DAILY BP 09/21/25 Unknown History loperamide 2 mg capsule 2 mg PO Q6H PRN diarrhea 09/21/25 Unknown History (Anti-Diarrheal (loperamide)) mecobalamin (vitamin B12) 500 mcg 500 mcg PO DAILY supplement 09/21/25 Unknown History chewable tablet metformin 500 mg tablet 500 mg PO BID diabetes 09/21/25 Unknown History naproxen 375 mg tablet 375 mg PO BID nsaid 09/21/25 Unknown History omeprazole 20 mg capsule,delayed 20 mg PO DAILY gerd 09/21/25 Unknown History release oxybutynin chloride 10 mg 10 mg PO DAILY bladder 09/21/25 Unknown History tablet,extended release 24 hr pravastatin 10 mg tablet 10 mg PO QHS cholesterol 09/21/25 Unknown History tamsulosin 0.4 mg capsule 0.4 mg PO DAILY bladder 09/21/25 Unknown History Allergy/AdvReac Type Severity Reaction Status Date / Time No Known Allergies Allergy Verified 09/21/25 17:42 Surgical History History of appendectomy Social History Smoking Status: Former smoker Review of Systems (Anesthesia) ROS Narrative System reviewed and no additional complaints, except as documented.
[2025-09-23] MEDS: Lactated Ringers 1,000 ML 15 ML IV (07:06)
--- NOTE | 2025-09-23 07:07 | PCM.PN.ORT ---
Subjective Subjective seen in pre-op. no concerns. Objective Data Objective Data Vital Signs: Vital Signs Temp Pulse Resp BP Pulse Ox O2 Del Method O2 Flow Rate 98.7 F 99 91 H 130/81 H 97 Room Air 3 09/23/25 06:59 09/23/25 06:59 09/23/25 06:59 09/23/25 06:59 09/23/25 06:59 09/23/25 06:59 09/23/25 06:59 Oxygen Flow Rate (L/min) 3 Oxygen Delivery Method Room Air Weight: 192 lb Body Mass Index (BMI) 27.5 Intake & Output: Intake and Output for Last 24 Hours 09/21/25 09/22/25 09/23/25 23:59 23:59 23:59 Intake Total 1985.25 / 1985. 591.25 / 591.25 Output Total 450 / 450 500 / 500 Balance 1536.25 / 1536.25 91.25 / 91.25 Lab / Micro Data 09/22/25 05:41 09/22/25 05:41 Labs: Laboratory Results - last 24 hr 09/22/25 10:55: POC Glucose 140 H 09/22/25 16:25: POC Glucose 164 H 09/22/25 22:00: POC Glucose 155 H 09/23/25 04:03: Blood Type B POSITIVE, Antibody Screen NEGATIVE 09/23/25 05:42: POC Glucose 148 H Assessment & Plan Assessment/Plan (1) Displaced fracture of right femoral neck: PLAN: 85 yr M plan for right hip debbie this morning.
[2025-09-23] MEDS: Cefazolin 1 GM/5 ML Vial 2 GM IV (07:30)
[2025-09-23] MEDS: Lidocaine 1% (5 ml sdv) 5 ML Vial 8 ML IV (07:36)
[2025-09-23] MEDS: TRANEXAMIC ACID 1,000 MG/10 ML ML 1000 MG IV (08:05)
[2025-09-23] MEDS: fentaNYL 100 MCG/2 ML Ampul IV (08:15)
--- NOTE | 2025-09-23 08:55 | NURSING ---
pt in surgery
--- NOTE | 2025-09-23 09:16 | PCM.OPRPT ---
Procedures Musculoskeletal [id number]: Other Procedure See Report Operative Report (Standard) Operative Information Date of Procedure: 09/23/25 Pre-Operative Diagnosis: R hip fracture Post-Operative Diagnosis: Same Surgery/Procedure Performed: R hip hemiarthroplasty coding educator: Yes Tandem Mill Roller: eleuterio Tasks completed by surgical first assistant: Retracting Additional fleet administrative assistant?: No Type of Anesthesia: General and Local RN Documented Start/Stop Times: Operation Date: 09/23/25 07:30 Case Time Into Pre-Op 09/23/25 06:51 Anesthesia Start 09/23/25 07:30 Into Room 09/23/25 07:30 Procedure Start 09/23/25 08:02 Procedure End 09/23/25 09:12 Procedure Start Time: 08:02 Procedure Stop Time: 09:12 Select all DRAINS/GRAFTS/IMPLANTS that apply: Implanted device Implanted device details: see below Estimated Blood Loss: 100 Specimen collected: No Description of surgery: Patient brought to operating room theater. Placed supine on the table. General anesthesia induced. All bony prominences padded. SCD on the nonoperative leg. Patient transferred right side up lateral decubitus fernando positioner. Axillary roll used all bony prominences padded. Lower extremity prepped and draped in the usual sterile fashion allowing over 3 minutes drying time prior to draping. 2 g of IV Ancef (as well as 1 g of IV tranexamic acid later) administered prior to the start of the procedure. Preoperative timeout performed to confirm the site patient and the surgery. Began by making a lateral longitudinal incision over the proximal lateral aspect of the hip carried the dissection down through skin and subcutaneous tissue achieved meticulous hemostasis. Next incised the tensor fascia remberto in line with the skin incision. Remove the greater trochanteric bursa. Identify the greater trochanter. I sharply released the insertion of the anterior one third of the abductors. Made a T-shaped capsulotomy marked each of these limbs with a #1 Vicryl. Identified the fracture. Identified approximately just above the level lesser trochanter made my neck cut 1cm above, removed that. Then remove the femoral head and sized this to a size 51 mm. Next used the lateralizing box osteotome as well as canal finding instruments and broaches up to a size 7 which achieved good purchase and fill of the canal. I then trialed this was good in flexion extension internal and external rotation no instability normal shuck normal leg lengths no impingement. Trial components removed. Canal of the femur was prepared using brushes pulse lavage and Irrisept. I then placed a distal cement restrictor - the larger size. I sized the distal centralizer 13mm. I chose my final femur implant, Jerzy accolade. Mixed cement using third-generation cement mixing techniques. Cement placed into the canal using pressurized techniques. Patient was stable during cementing. I inserted the final components size 7 to an appropriate version. The collar was sitting nicely on the neck cut. I then fully cleaned the trunnion and allowed the cement to fully cure and dry. This was stable and solid I then impacted a size 51 with +0 mm offset onto the trunnion was achieved with good solid fixation and purchase hip was then rereduced and again trialed and felt to be stable with appropriate length no impingement normal shuck test. Again thorough irrigation, using saline and iriscept. I then closed the capsule using #1 Vicryl suture the abductors using #2 FiberWire sutures as well as the tensor fascia remberto with running STRATAFIX suture the subcutaneous tissue with 2-0 Vicryl suture and the skin with 3-0 Monocryl. Skin cleaned with wet dry dressing followed by application of Steri-Strips and silver Mepilex border dressing. Patient will come from a general anesthetic transit with operating table taken postanesthetic care unit in stable condition. All sponge needle instrument counts were correct. Plan to the patient weightbearing as tolerated PT OT and social work to see for mobilization discharge planning. Plan for Xarelto 10 mg p.o. once daily starting postoperative day 1 for the next 30 days for VTE prophylaxis. Plan also for x-ray in the PACU. cpt 12735? Surgical Findings: as above Complications Complications: No Admit VTE Documentation VTE Present on Admission: No VTE Mechan Device Prophylaxis: SCD's VTE Pharm Prophylaxis ordered?: Yes
--- NOTE | 2025-09-23 09:20 | RAD_ITS ---
PROCEDURE: HIP MIN 2 VIEWS (PORTABLE) 09/23/2025 REASON FOR EXAM: POST OP AP ONLY TECHNIQUE: Procedure Code: RADH_P Modality: DX Procedure: HIP MIN 2 VIEWS (PORTABLE) Laterality: Right hip. COMPARISON: None FINDINGS: The patient is status post right total hip replacement. There is good alignment. Postoperative soft tissue changes. RAD/Hip Min 2 Views (Portable) IMPRESSION: Status post right total hip replacement. Postoperative soft tissue changes. Reading Location: [facility]-
--- NOTE | 2025-09-23 09:41 | PCM.POST.ANE ---
Anesthesia: Postop Eval I Current Vital Signs Temperature: 97.1 F Pulse Rate: 94 Blood Pressure: 119/89 Respiratory Rate: 16 Pulse Ox: 97 Oxygen Delivery Method: Simple Mask Oxygen Flow Rate (L/min): 6 Assessment Airway patent: Yes Spontaneous unlabored respirations: Yes Mental status: Awake and Calm nausea: No Vomiting: No Anesthesia Complication: No Fluid Hydration Crystalloid volume administer (ml): 800 Total IV fluid infused: 800 Progress Note Anesthesia document: Postop Eval 1 completed: Yes
[2025-09-23] MEDS: Cholecalciferol (VIT D3) 25 MCG TABLET (1,000 UNITS) 50 MCG PO (10:44)
[2025-09-23] MEDS: Divalproex Sodium 125 MG Tablet PO (10:44)
[2025-09-23] MEDS: Aspirin E.C. 81 MG Tablet PO (10:44)
[2025-09-23] MEDS: Cefazolin 2 GM in 0.9% Normal Saline (100mL Bag) 100 ML IV ×2 (13:43→22:31)
[2025-09-23] MEDS: 0.9% Normal Saline (500mL Bag) 500 ML 125 ML IV (15:14)
--- NOTE | 2025-09-23 15:34 | POSTOPAN2_ITS ---
Anesthesia Postop Eval I Sum Postop Eval Completion status Anesthesia document: Postop Eval 1 completed: Yes Anesthesia Postop Eval I Summary Anesthesia Postop Eval I Summary: Anesthesia Postop Eval I: Assessment Summary Airway patent Yes 09/23/25 09:42 SCRAPE GATHERER.MARIA DEL ROSARIOOBMadi Spontaneous unlabored Yes 09/23/25 09:42 SCRAPE GATHERER.VANESSA respirations Mental status Awake,Calm 09/23/25 09:42 SCRAPE GATHERER.VANESSA nausea No 09/23/25 09:42 SCRAPE GATHERER.VANESSA Vomiting No 09/23/25 09:42 SCRAPE GATHERER.VANESSA Anesthesia Postop Eval I: Fluid Summary Crystalloid volume administer 800 09/23/25 09:42 SCRAPE GATHERER.MARIELY (ml) Colloids volume administered ( ml) Blood Product volume administered (ml) Total IV fluid infused 800 09/23/25 09:42 SCRAPE GATHERER.VANESSA Anesthesia Postop Eval I: Summary Notes Anesthesia Complication No 09/23/25 09:42 SCRAPE GATHERERMIMI Anesthesia Complication Comment: Post-operative progress note Anesthesia: Postop Eval II Evaluation Mental status: Awake and Calm Pain Level: 1 nausea: No Vomiting: No Complications Anesthesia Complication: No
--- NOTE | 2025-09-23 15:34 | PCM.POSTANE2 ---
Anesthesia Postop Eval I Sum Postop Eval Completion status Anesthesia document: Postop Eval 1 completed: Yes Anesthesia Postop Eval I Summary Anesthesia Postop Eval I Summary: Anesthesia Postop Eval I: Assessment Summary Airway patent Yes 09/23/25 09:42 COUNSELING SPECIALIST.MARIA DEL ROSARIOOBMadi Spontaneous unlabored Yes 09/23/25 09:42 COUNSELING SPECIALIST.VANESSA respirations Mental status Awake,Calm 09/23/25 09:42 COUNSELING SPECIALIST.VANESSA nausea No 09/23/25 09:42 COUNSELING SPECIALIST.VANESSA Vomiting No 09/23/25 09:42 COUNSELING SPECIALIST.VANESSA Anesthesia Postop Eval I: Fluid Summary Crystalloid volume administer 800 09/23/25 09:42 COUNSELING SPECIALIST.MARIELY (ml) Colloids volume administered ( ml) Blood Product volume administered (ml) Total IV fluid infused 800 09/23/25 09:42 COUNSELING SPECIALIST.VANESSA Anesthesia Postop Eval I: Summary Notes Anesthesia Complication No 09/23/25 09:42 COUNSELING SPECIALISTMIMI Anesthesia Complication Comment: Post-operative progress note Anesthesia: Postop Eval II Evaluation Mental status: Awake and Calm Pain Level: 1 nausea: No Vomiting: No Complications Anesthesia Complication: No
[2025-09-23] MEDS: Lactated Ringers 1,000 ML 75 ML IV (18:56)
--- NOTE | 2025-09-23 19:40 | PCM.PN.HOSP ---
Reason for Visit Chief Complaint: Right femoral neck fracture Subjective Subjective Patient was seen and examined today, he underwent a right hip hemiarthroplasty, I talked briefly with his daughter, she would like him to go to inpatient rehab at a longterm facility or rehab unit, she would like us to see if the rehab unit here could take the patient. Patient's blood pressure was low this afternoon, he was given a fluid bolus and at the time of this dictation it appears that his pressure is improved. Objective Data Objective Data Vital Signs: Vital Signs Temp Pulse Resp BP Pulse Ox O2 Del Method O2 Flow Rate 97.7 F L 104 H 18 109/64 95 Nasal Cannula 2 09/23/25 17:21 09/23/25 17:21 09/23/25 17:21 09/23/25 17:21 09/23/25 17:21 09/23/25 17:21 09/23/25 17:21 Oxygen Flow Rate (L/min) 2 Oxygen Delivery Method Nasal Cannula Weight: 87.09 kg Body Mass Index (BMI) 27.5 Intake & Output: Intake and Output for Last 24 Hours 09/21/25 09/22/25 09/23/25 23:59 23:59 23:59 Intake Total 1986.25 / 1985.25 1919.50 / 1919.50 Output Total 450 / 450 1650 / 1650 Balance 1536.25 / 1536.25 269.50 / 269.50 Lab / Micro Data 09/22/25 05:41 09/22/25 05:41 Labs: Laboratory Results - last 24 hr 09/22/25 22:00: POC Glucose 155 H 09/23/25 04:03: Blood Type B POSITIVE, Antibody Screen NEGATIVE 09/23/25 05:42: POC Glucose 148 H 09/23/25 10:54: POC Glucose 200 H 09/23/25 16:05: POC Glucose 183 H Radiography Diagnostic Testing: Radiology Impression Hip X-Ray 09/23/25 09:20 IMPRESSION: Status post right total hip replacement. Postoperative soft tissue changes. Reading Location: [place] [address] Physical Exam Narrative Patient appears sleepy, no apparent distress, average body habitus and healthy appearing General Appearance: cooperative, well kempt and well developed Orientation / Consciousness: Patient appears sleepy HEENT normocephalic, head/scalp atraumatic, hearing grossly normal bilaterally and moist oral mucous membranes Eyes PERRL, EOMs intact bilaterally and conjunctivae normal Neck supple, no JVD, thyroid normal and no carotid bruits General: trachea midline Resp normal respiratory effort, no retractions, no use of accessory muscles and clear to auscultation bilaterally Auscultation: Negative for rales, rhonchi or wheezes Cardio regular rate, regular rhythm, S1 normal heart sound, S2 normal heart sound, no murmurs, no rub and no gallops GI normal to inspection, nondistended, normoactive bowel sounds, soft to palpation, non-tender and non-distended Extremity no clubbing, cyanosis or edema Extremity Narrative: Patient has discomfort when moving right hip Skin no rashes or lesions noted General Skin Exam: no breakdown Neuro CN's II-XII intact bilaterally, moves all extremities, no focal motor deficits and no sensory deficits noted Neuro Narrative: Sensorium / Orientation: Patient is sleepy, he responds to painful stimulation Speech: speech normal Psych Psych Narrative: Patient is sleepy at the time of my examination Assessment & Plan Assessment/Plan (1) Displaced fracture of right femoral neck: (2) Nondisplaced fracture of neck of right femur: (3) Alzheimer's dementia: (4) Essential hypertension: PLAN: Plan 1. Nondisplaced right femoral neck fracture secondary to osteoporosis and mechanical fall-postop day 0 right hip hemiarthroplasty, PT and OT will see the patient, he will need either skilled inpatient care or transfer to a rehab unit for continuing PT and OT #2 Alzheimer's dementia-complicates care, management, recovery, and prognosis #3 GERD-patient is currently on a PPI #4 essential hypertension-patient will remain on his present blood pressure medications and his blood pressure will be monitored #5 elevated creatinine-on admission-corrected at this time #6 hyperlipidemia-patient is on fenofibrate and a statin #7 type 2 diabetes-patient is on metformin currently, patient is currently on sliding scale insulin coverage per fingerstick blood sugars #8 BPH-patient is on Flomax #9 atelectasis at the left lung base-continue DuoNeb aerosol treatment #10 hypoxia-probably secondary atelectasis, patient is on low-flow oxygen at this time, pulse ox will be monitored Total clinical time spent by myself addressing the patient's medical issues, reviewing all of his data, and collaborating with patient's care team: 35 minutes Charges/Coding Visit Charges Inpatient E&M: 75148 Subs Hosp L2
[2025-09-24] VITALS (12 sets, daily range): BP systolic 98–139; BP diastolic 54–84; PULSE 98–110; RESP 16–20; TEMP 36.6–37.3; O2SAT 91–98
--- NOTE | 2025-09-24 07:51 | PN.ORTHO_ITS ---
Subjective Subjective POD 1 R hip debbie. no concerns. Objective Data Objective Data Vital Signs: Vital Signs Temp Pulse Resp BP Pulse Ox O2 Del Method O2 Flow Rate 98 F 103 H 16 139/65 H 94 Nasal Cannula 2 09/24/25 07:30 09/24/25 07:30 09/24/25 07:30 09/24/25 07:30 09/24/25 07:30 09/24/25 07:30 09/24/25 07:30 Oxygen Flow Rate (L/min) 2 Oxygen Delivery Method Nasal Cannula Weight: 192 lb Body Mass Index (BMI) 27.5 Intake & Output: Intake and Output for Last 24 Hours 09/22/25 09/23/25 09/24/25 23:59 23:59 23:59 Intake Total 1985.25 / 202.50 / 2028.50 848.75 / 848.75 Output Total 450 / 450 1650 / 0 800 / 800 Balance 1536.25 / 1536.25 379.50 / -20.50 48.75 / 48.75 Lab / Micro Data 09/22/25 05:41 09/22/25 05:41 Labs: Laboratory Results - last 24 hr 09/23/25 10:54: POC Glucose 200 H 09/23/25 16:05: POC Glucose 183 H 09/24/25 06:50: POC Glucose 149 H Radiography Diagnostic Testing: Radiology Impression Hip X-Ray 09/23/25 09:20 IMPRESSION: Status post right total hip replacement. Postoperative soft tissue changes. Reading Location: [facility]- Agree with report. Physical Exam Const no apparent distress General Appearance: cooperative Extremity Extremity Narrative: drsg dry, intact, thigh soft, no bleeding, nvi, foot warm well perfused. Assessment & Plan Assessment/Plan (1) Displaced fracture of right femoral neck: PLAN: 85 yr M pod 1 R hip debbie. WBAT. FU 2 weeks in office. OK to change dressing POD 3-4. hip precautions.
[2025-09-24] MEDS: Divalproex Sodium 125 MG Tablet PO (10:13)
[2025-09-24] MEDS: Cholecalciferol (VIT D3) 25 MCG TABLET (1,000 UNITS) 50 MCG PO (10:13)
[2025-09-24 10:57] LABS: Hematocrit 29.2 % (40-54); Hemoglobin 9.4 g/dL (13.0-16.5); Immature Granulocytes Count 0.110 X10^3/uL (0.0-0.0); Mean Corp Hgb Conc 32.2 g/dL (32-36); Mean Corpuscular Volume 96.1 fL (80-94); Mean Platelet Vol. 9.5 fl (6.2-12.0); NRBC Flagged by Analyzer 0 % (0-5); Platelet Count 222 K/mm3 (150-450); RBC Distribution Width CV 14.6 % (11.6-14.6); RBC Distribution Width SD 50.8 fl (35.1-43.9); Red Blood Count 3.04 M/mm3 (4.6-6.2); White Blood Count 18.4 K/mm3 (4.4-11.0)
[2025-09-24] MEDS: Cefazolin 2 GM in 0.9% Normal Saline (100mL Bag) 100 ML IV ×2 (11:09→13:33)
[2025-09-24 11:17] LABS: AST(SGOT) 37 U/L (<=37); Alanine Aminotransfer ALT/SGPT 18 U/L (<=46); Albumin, Serum 2.9 g/dL (3.4-4.8); Alkaline Phosphatase 54 U/L (40-129); Anion Gap 12 (5-15); BUN 28 mg/dL (4-19); BUN/Creat Ratio 25.5 RATIO (10-20); Calcium,Total 8.7 mg/dL (7.6-11.0); Carbon Dioxide 24.5 mmol/L (21.0-32.0); Chloride 102 mmol/L (98-108); Estimated Creatinine Clearance 53.51 ml/min (50-250); Globulin 2.8 g/dL (2.2-4.2); Glucose 166 mg/dL (70-99); Potassium 4.4 mmol/L (3.3-5.1)
[2025-09-24] MEDS: Lactated Ringers 1,000 ML 75 ML IV (13:19)
--- NOTE | 2025-09-24 14:50 | CASEMGMT ---
NATHALIE CM into pt room, pt lying in bed in no distress with dtr at bedside. Pt dtr states she has reviewed the list of facilities and has chosen 1. [facility] Rehab unit 2. [facility] 3. [facility] and 4. [facility]. Referral made to [facility] Rehab unit, pt cannot be reviewed until tomorrow. Emily placed pt on referral list to be reviewed. Pt and dtr are aware that [facility] Rehab unit is not able to determine acceptance this date and referral will be sent to [facility] as pt is medically ready for dc per hospitalist.
--- NOTE | 2025-09-24 15:29 | CASEMGMT ---
Addendum entered by Valarie Trejo 09/24/25 16:14: [facility] has accepted. Original Note: Discharge Planning Referral sent via [facility] to [facility]. Valarie Trejo DC Planning Asst.
--- NOTE | 2025-09-24 18:34 | PN.HOSP_ITS ---
Reason for Visit Chief Complaint: Right femoral neck fracture Subjective Subjective Patient was seen and examined today, he is alert and answers questions for the most part appropriately. Daughter was in the room today, rehab unit could not evaluate the patient for transfer and they will see the patient tomorrow to see if they will accept him for rehab services, if not, daughter would like the patient to go to [place]. CBC today showed an elevated white blood cell count, patient is afebrile, patient's hemoglobin is 9.4. CBC will be rechecked tomorrow Objective Data Objective Data Vital Signs: Vital Signs Temp Pulse Resp BP Pulse Ox O2 Del Method O2 Flow Rate 97.8 F 103 H 18 98/54 L 96 Nasal Cannula 3 09/24/25 14:35 09/24/25 14:35 09/24/25 14:35 09/24/25 14:35 09/24/25 14:35 09/24/25 14:36 09/24/25 14:36 Oxygen Flow Rate (L/min) 3 Oxygen Delivery Method Nasal Cannula Weight: 87.09 kg Body Mass Index (BMI) 27.5 Intake & Output: Intake and Output for Last 24 Hours 09/22/25 09/23/25 09/24/25 23:59 23:59 23:59 Intake Total 1985.25 / 1985.25 2029.50 / 2029.50 1570.00 / 1570.00 Output Total 450 / 450 1650 / 2050 1400 / 1400 Balance 1536.25 / 1536.25 379.50 / -20.50 170.00 / 170.00 Lab / Micro Data 09/25/25 06:10 09/24/25 10:51 Labs: Laboratory Results - last 24 hr 09/24/25 06:50: POC Glucose 149 H 09/24/25 10:51: WBC 18.4 H, RBC 3.04 L, Hgb 9.4 L, Hct 29.2 L, MCV 96.1 H, MCH 30.9, MCHC 32.2, RDW Std Deviation 50.8 H, RDW Coeff of Latrice 14.6, Plt Count 222, MPV 9.5, Immature Gran % (Auto) 0.600, Neut % (Auto) 87.9 H, Lymph % (Auto) 4.7 L, [place] % (Auto) 6.6, Eos % (Auto) 0.1, Baso % (Auto) 0.1, Absolute Neuts (auto) 16.2 H, Absolute Lymphs (auto) 0.87, Nucleated RBC % 0, Sodium 138, Potassium 4.4, Chloride 102, Carbon Dioxide 24.5, Anion Gap 12, BUN 28 H, Creatinine 1.08, Estim Creat Clear Calc 53.51, Est GFR (MDRD) Non-Af 68, BUN/Creatinine Ratio 25.5 H, Glucose 166 H, Calcium 8.7, Total Bilirubin 0.83, AST 37, ALT 18, Alkaline Phosphatase 54, Total Protein 5.7 L, Albumin 2.9 L, Globulin 2.8, Albumin/Globulin Ratio 1.0 09/24/25 10:58: POC Glucose 161 H 09/24/25 16:15: POC Glucose 224 H Physical Exam Narrative Patient appears sleepy, no apparent distress, average body habitus and healthy appearing General Appearance: cooperative, well kempt and well developed Orientation / Consciousness: Patient appears sleepy HEENT normocephalic, head/scalp atraumatic, hearing grossly normal bilaterally and moist oral mucous membranes Eyes PERRL, EOMs intact bilaterally and conjunctivae normal Neck supple, no JVD, thyroid normal and no carotid bruits General: trachea midline Resp normal respiratory effort, no retractions, no use of accessory muscles and clear to auscultation bilaterally Auscultation: Negative for rales, rhonchi or wheezes Cardio regular rate, regular rhythm, S1 normal heart sound, S2 normal heart sound, no murmurs, no rub and no gallops GI normal to inspection, nondistended, normoactive bowel sounds, soft to palpation, non-tender and non-distended Extremity no clubbing, cyanosis or edema Extremity Narrative: Patient has discomfort when moving right hip Skin no rashes or lesions noted General Skin Exam: no breakdown Neuro CN's II-XII intact bilaterally, moves all extremities, no focal motor deficits and no sensory deficits noted Neuro Narrative: Sensorium / Orientation: Patient is sleepy, he responds to painful stimulation Speech: speech normal Psych Psych Narrative: Patient is sleepy at the time of my examination Assessment & Plan Assessment/Plan (1) Nondisplaced fracture of neck of right femur: (2) Displaced fracture of right femoral neck: (3) Alzheimer's dementia: (4) Essential hypertension: PLAN: Plan 1. Nondisplaced right femoral neck fracture secondary to osteoporosis and mechanical fall-postop day 1 right hip hemiarthroplasty, PT and OT will see the patient, he will need either skilled inpatient care or transfer to a rehab unit for continuing PT and OT #2 Alzheimer's dementia-complicates care, management, recovery, and prognosis #3 GERD-patient is currently on a PPI #4 essential hypertension-patient will remain on his present blood pressure medications and his blood pressure will be monitored #5 elevated creatinine-on admission-corrected at this time #6 hyperlipidemia-patient is on fenofibrate and a statin #7 type 2 diabetes-patient is on metformin currently, patient is currently on sliding scale insulin coverage per fingerstick blood sugars #8 BPH-patient is on Flomax #9 atelectasis at the left lung base-continue DuoNeb aerosol treatment #10 hypoxia-probably secondary atelectasis, patient is on low-flow oxygen at this time, pulse ox will be monitored #11 leukocytosis-etiology unclear, CBC will be rechecked tomorrow, patient is not running a temperature Total clinical time spent by myself addressing the patient's medical issues, reviewing all of his data, and collaborating with patient's care team: 35 minutes Charges/Coding Visit Charges Inpatient E&M: 34080 Subs Hosp L2
[2025-09-25] VITALS (14 sets, daily range): BP systolic 105–145; BP diastolic 69–92; PULSE 86–138; RESP 16–20; TEMP 36.2–36.6; O2SAT 94–98
[2025-09-25] MEDS: Lactated Ringers 1,000 ML 75 ML IV ×2 (02:47→11:29)
[2025-09-25 06:24] LABS: Hematocrit 28.2 % (40-54); Hemoglobin 9.2 g/dL (13.0-16.5); Immature Granulocytes Count 0.070 X10^3/uL (0.0-0.0); Mean Corp Hgb Conc 32.6 g/dL (32-36); Mean Corpuscular Volume 95.9 fL (80-94); Mean Platelet Vol. 9.2 fl (6.2-12.0); NRBC Flagged by Analyzer 0 % (0-5); Platelet Count 189 K/mm3 (150-450); RBC Distribution Width CV 14.6 % (11.6-14.6); RBC Distribution Width SD 51.2 fl (35.1-43.9); Red Blood Count 2.94 M/mm3 (4.6-6.2); White Blood Count 13.0 K/mm3 (4.4-11.0)
--- NOTE | 2025-09-25 09:22 | NURSING ---
respiratory therapist called for STAT ABG
--- NOTE | 2025-09-25 09:25 | NURSING ---
RESPIRATORY THERAPY CALLED FOR STAT EKG
--- NOTE | 2025-09-25 09:25 | EKG12_ITS ---
Test Reason : ALT LOC Blood Pressure : */* mmHG Vent. Rate : 113 BPM Atrial Rate : * BPM P-R Int : * ms QRS Dur : 128 ms QT Int : 350 ms P-R-T Axes : * 8 20 degrees QTcB Int : 480 ms Atrial fibrillation with rapid ventricular response Right bundle branch block Abnormal ECG When compared with ECG of 22-Sep-2025 05:09, Atrial fibrillation has replaced Sinus rhythm T wave inversion less evident in Inferior leads Confirmed by TYSON MILLER, JEREMIAH ([id number]), editor news SAJAN CHAMBERS ([id number]) on 09/29/2025 6:36:57 AM Referred By: Confirmed By: JEREMIAH MEHTA MD
--- NOTE | 2025-09-25 09:30 | CASEMGMT ---
Pt was denied acceptance at the rehab unit as pt cannot tolerate 3 hours of therapy. [facility] has accepted pt. Pt dtr present in the waiting lounge as pt had a episode and staff are working with him in his room. Pt dtr is aware of the above information. She is aware that once pt is medically ready, he will be transported to [facility]. She denies further needs at this time.
[2025-09-25] MEDS: Digoxin 250 MCG/ML Ampul 500 MCG IV (10:16)
[2025-09-25] MEDS: 0.9% Saline Lock 10 ML Syringe IV (10:18)
[2025-09-25 10:32] LABS: Base Excess 3 mmol/L (-2 to +2); FI02 2.0; PO2 39 mmHG (75-100); SITE R Radial; SO2 76 % (94-98)
--- NOTE | 2025-09-25 10:38 | NURSING ---
Report called to Gela on PCU, pt going to room 101
[2025-09-25] MEDS: Cholecalciferol (VIT D3) 25 MCG TABLET (1,000 UNITS) 50 MCG PO (10:51)
[2025-09-25] MEDS: Divalproex Sodium 125 MG Tablet PO (10:52)
--- NOTE | 2025-09-25 14:37 | CASEMGMT ---
NATHALIE CM started 7000 and filled out transport form, gave transport form to RN CM on floor.
--- NOTE | 2025-09-25 14:57 | NURSING ---
AUTOMOBILE ASSEMBLER called this am around 9:15, PT/OT was working with pt and he passed out while getting him up to the sera lift. Pt was ordered EKG which reveled new onset a-fib with RVR. Dr. Hernandez was aware and ordered one time dose of IV digoxin, and to be on tele and send to PCU. Once med given pt converted to sinus rhythm and PCU transfer canceled. Pt code status was changed to DNRCC-A no intubation per daughter. Pt resting comfortably in room.
--- NOTE | 2025-09-25 18:33 | PCM.PN.HOSP ---
Reason for Visit Chief Complaint: Right femoral neck fracture Subjective Subjective Patient was seen and examined today, he had an episode this morning where he became very lethargic and minimally responsive, he was tachycardic at the time and his blood pressure was normal however. Nursing detected an irregular heartbeat and EKG showed the patient to be in A-fib at approximately 115 bpm. I gave the patient IV digoxin placed on the monitor and shortly after administration he converted to normal sinus rhythm at 101. I talked to the daughter who is in the room this morning, I discussed his CODE STATUS and she would like his CODE STATUS to be a DNR CC arrest without intubation. Patient was placed on a beta-blaine and will be monitored on telemetry. The rehab unit refused to accept the patient for rehab services, the patient will therefore go to [place] when he is medically stable. Objective Data Objective Data Vital Signs: Vital Signs Temp Pulse Resp BP Pulse Ox O2 Del Method O2 Flow Rate 97.8 F 95 18 114/69 96 Nasal Cannula 2 09/25/25 14:30 09/25/25 14:30 09/25/25 14:30 09/25/25 14:30 09/25/25 14:30 09/25/25 14:30 09/25/25 14:30 Oxygen Flow Rate (L/min) 2 Oxygen Delivery Method Nasal Cannula Weight: 87.09 kg Body Mass Index (BMI) 27.5 Intake & Output: Intake and Output for Last 24 Hours 09/23/25 09/24/25 09/25/25 23:59 23:59 23:59 Intake Total 2029.50 / 2029.50 1770.00 / 1770.00 2390.0 / 2390.0 Output Total 1649 / 2049 1999 / 1999 1200 / 1200 Balance 379.50 / -20.50 -230.00 / -230.00 1190.0 / 1190.0 Lab / Micro Data 09/25/25 06:10 09/24/25 10:51 Labs: Laboratory Results - last 24 hr 09/25/25 06:10: WBC 13.0 H, RBC 2.94 L, Hgb 9.2 L, Hct 28.2 L, MCV 95.9 H, MCH 31.3, MCHC 32.6, RDW Std Deviation 51.2 H, RDW Coeff of Latrice 14.6, Plt Count 189, MPV 9.2, Immature Gran % (Auto) 0.500, Neut % (Auto) 82.0 H, Lymph % (Auto) 8.6 L, [place] % (Auto) 7.7, Eos % (Auto) 1.0, Baso % (Auto) 0.2, Absolute Neuts (auto) 10.6 H, Absolute Lymphs (auto) 1.12, Nucleated RBC % 0 09/25/25 06:16: POC Glucose 130 H 09/25/25 09:17: POC Glucose 150 H 09/25/25 11:27: POC Glucose 158 H 09/25/25 16:04: POC Glucose 156 H ABG Data ABG results: ABG 09/25/25 10:26 Specimen Type ART Sample Site R Radial pH 7.44 Bicarbonate Actual 27.0 H Total CO2 28 Base Excess 3 H O2 Saturation 76 L O2 % 2.0 ABG pCO2 39.4 ABG pO2 39 L* Miko Test N/A O2 Delivery Device Cannula Vent Mode Not entered Crit Call To/Read Back Yes [facility] Notified Time 10:28:27 Physical Exam Const no apparent distress Constitutional Narrative: Patient is lethargic and sleepy General Appearance: cooperative, well kempt and well developed HEENT normocephalic, head/scalp atraumatic and moist oral mucous membranes Eyes PERRL, EOMs intact bilaterally and conjunctivae normal Neck supple, no JVD, thyroid normal and no carotid bruits General: trachea midline Resp normal respiratory effort, no retractions, no use of accessory muscles and clear to auscultation bilaterally Auscultation: Negative for rales, rhonchi or wheezes Cardio regular rate, regular rhythm, S1 normal heart sound, S2 normal heart sound, no murmurs, no rub and no gallops GI normal to inspection, nondistended, normoactive bowel sounds, soft to palpation, non-tender and non-distended Extremity no clubbing, cyanosis or edema Skin no rashes or lesions noted General Skin Exam: no breakdown Neuro CN's II-XII intact bilaterally, moves all extremities and no focal motor deficits Neuro Narrative: Patient is lethargic and sleepy Psych Psych Narrative: Patient is lethargic and sleepy Assessment & Plan Assessment/Plan (1) History of hip fracture: (2) Nondisplaced fracture of neck of right femur: (3) Displaced fracture of right femoral neck: (4) Alzheimer's dementia: (5) Essential hypertension: PLAN: Plan 1. Nondisplaced right femoral neck fracture secondary to osteoporosis and mechanical fall-postop day 2 right hip hemiarthroplasty, PT and OT will see the patient, he will need either skilled inpatient care or transfer to a rehab unit for continuing PT and OT #2 Alzheimer's dementia-complicates care, management, recovery, and prognosis #3 GERD-patient is currently on a PPI #4 essential hypertension-patient will remain on his present blood pressure medications and his blood pressure will be monitored #5 elevated creatinine-on admission-corrected at this time #6 hyperlipidemia-patient is on fenofibrate and a statin #7 type 2 diabetes-patient is on metformin currently #8 BPH-patient is on Flomax #9 atelectasis at the left lung base-continue DuoNeb aerosol treatment #10 hypoxia-probably secondary atelectasis, patient is on low-flow oxygen at this time, pulse ox will be monitored #11 Paroxysmal atrial fibrillation-patient was currently on Xarelto, at the time of discharge I will increase it to 20 mg daily, I have decided to place the patient on metoprolol for rate control, he remains in sinus rhythm at this time Total clinical time spent by myself addressing the patient's medical issues, reviewing all of his data, and collaborating with patient's care team: 35 minutes Charges/Coding Visit Charges Inpatient E&M: 24747 Subs Hosp L2
[2025-09-26] VITALS (8 sets, daily range): BP systolic 106–145; BP diastolic 82–88; PULSE 87–101; RESP 16–18; TEMP 36.4–36.9; O2SAT 78–95
[2025-09-26] MEDS: Lactated Ringers 1,000 ML 75 ML IV (02:22)
[2025-09-26] MEDS: Aspirin E.C. 81 MG Tablet PO (08:35)
[2025-09-26] MEDS: Divalproex Sodium 125 MG Tablet PO (08:35)
[2025-09-26] MEDS: Cholecalciferol (VIT D3) 25 MCG TABLET (1,000 UNITS) 50 MCG PO (08:36)
--- NOTE | 2025-09-26 13:16 | PCM.TXEXTCAR ---
Diet Diet Order/Speech Therapy: INPATIENT Hospital Diet / Speech Therapy Order(s) 09/23/25 09:20 Diet: Regular - General Routine Orders/Code Status Code Status: DNRCC-A (no intubation) DC O2, CPAP, BIPAP needs Home O2 Discharge instructions: Yes Type of respiratory needs?: Oxygen Oxygen frequency: Continuous Continuous oxygen liters per minute: 2 L Wound(s) RIGHT HIP: Wound Type: Surgical Incision Therapies Weight Bearing: Full weight bearing Physical Therapy: Eval and Treat Occupational Therapy: Eval and Treat Problem/Diagnosis (1) Nondisplaced fracture of neck of right femur: Status: Acute Code(s): S72.001A - Fracture of unspecified part of neck of right femur, initial encounter for closed fracture (2) Displaced fracture of right femoral neck: Status: Acute Code(s): S72.001A - Fracture of unspecified part of neck of right femur, initial encounter for closed fracture (3) Alzheimer's dementia: Status: Acute Code(s): G30.9 - Alzheimer's disease, unspecified; F02.80 - Dementia in other diseases classified elsewhere, unspecified severity, without behavioral disturbance, psychotic disturbance, mood disturbance, and anxiety (4) Essential hypertension: Status: Acute Code(s): I10 - Essential (primary) hypertension Plan 1. Nondisplaced right femoral neck fracture secondary to osteoporosis and mechanical fall-postop day 3 right hip hemiarthroplasty, PT and OT will see the patient, he will need either skilled inpatient care or transfer to a rehab unit for continuing PT and OT #2 Alzheimer's dementia-complicates care, management, recovery, and prognosis #3 GERD-patient is currently on a PPI #4 essential hypertension-patient will remain on his present blood pressure medications and his blood pressure will be monitored #5 elevated creatinine-on admission-corrected at this time #6 hyperlipidemia-patient is on fenofibrate and a statin #7 type 2 diabetes-patient is on metformin currently #8 BPH-patient is on Flomax #9 atelectasis at the left lung base-continue DuoNeb aerosol treatment #10 hypoxia-probably secondary atelectasis, patient is on low-flow oxygen at this time, pulse ox will be monitored #11 Paroxysmal atrial fibrillation-patient is on rate control medication and Xarelto 20 mg daily, patient should remain on Xarelto 20 mg daily Total clinical time spent by myself addressing the patient's medical issues, reviewing all of his data, and collaborating with patient's care team: 35 minutes Allergies/Procedures Done in Hospital Allergies No Known Allergies Allergy (Verified 09/21/25 17:42) Procedures: None and - (Hemiarthroplasty right hip 09/23/2025) Type of Care/Length of Stay Estimated LOS: Convalescent Care Less Than 30 days Type of Care Needed: Skilled Rehab Potential: Fair Prognosis: Fair Additional Orders/Day of Discharge H&P will serve as current which was dated: 09/21/25 Day of Discharge: 09/26/25 Discharge Plan Admission Admit Date/Time: 09/21/25 18:24 Primary Reason for Your Visit: Nondisplaced right femoral neck fracture Attending Provider: Juanjose Hernandez Primary Care Provider: Kodi Cornejo Consulting Providers: Michael Jeff; Zayra Redd Discharge Orders/Prescriptions Prescriptions: New pantoprazole 20 mg Tablet,Delayed Release (Dr/Ec) 40 mg PO DAILY Qty: 0 0RF metoprolol tartrate 50 mg Tablet 50 mg PO BID Qty: 0 0RF oxycodone 5 mg Tablet 10 mg PO Q4H PRN PRN (Reason: Pain Score 4-10) 5 Days Qty: 12 0RF Xarelto 10 mg Tablet 20 mg PO DINNER Qty: 0 0RF Continued aspirin [Adult Aspirin Regimen] 81 mg tablet,delayed release (DR/EC) 81 mg PO DAILY cholecalciferol (vitamin D3) [D3-2000] 50 mcg (2,000 unit) capsule 2,000 unit PO DAILY divalproex 125 mg tablet,delayed release (DR/EC) 125 mg PO DAILY donepezil 5 mg tablet 5 mg PO DAILY Rx Instructions: takes in evening fenofibrate 150 mg capsule 145 mg PO DAILY finasteride 5 mg tablet 5 mg PO DAILY lisinopril 10 mg tablet 10 mg PO DAILY metformin 500 mg tablet 500 mg PO BID oxybutynin chloride 10 mg tablet extended release 24hr 10 mg PO DAILY pravastatin 10 mg tablet 10 mg PO QHS tamsulosin 0.4 mg capsule 0.4 mg PO DAILY mecobalamin (vitamin B12) 500 mcg tablet,chewable 500 mcg PO DAILY loperamide [Anti-Diarrheal (loperamide)] 2 mg capsule 2 mg PO Q6H PRN (Reason: diarrhea) Discontinued Acidophilus Tablet,Chewable 1 tab PO DAILY cimetidine 400 mg tablet 400 mg PO BID naproxen 375 mg tablet 375 mg PO BID Rx Instructions: take with meals omeprazole 20 mg capsule,delayed release(DR/EC) 20 mg PO DAILY hydralazine 25 mg tablet 25 mg PO TID PRN (Reason: BP) Referrals / Follow Up: Michael Jeff MD [Med Staff - Active Staff, Orthopedics] - See Referral Note Referral Note: In 2 weeks, call for an appointment Kodi Cornejo PA [Primary Care Provider, Medical] Disposition Disposition (needs filled in before D/C Order can be placed): Intermediate Facility
--- NOTE | 2025-09-26 13:31 | PHA.DC.MR.R ---
Pharmacy [place] Med Reconciliation Pharmacy Service has performed discharge medication reconciliation for this patient. The patient's discharge medication list was reviewed for discrepancies and discrepancies were resolved. Medications at Discharge Home Medications aspirin 81 mg tablet,delayed release (Adult Aspirin Regimen) 81 mg PO DAILY adult regimen 09/21/25 cholecalciferol (vitamin D3) 50 mcg (2,000 unit) capsule (D3-2000) 2,000 unit PO DAILY supplement 09/21/25 divalproex 125 mg tablet,delayed release 125 mg PO DAILY mood 09/21/25 donepezil 5 mg tablet 5 mg PO DAILY dementia 09/21/25 fenofibrate 150 mg capsule 145 mg PO DAILY diet 09/21/25 finasteride 5 mg tablet 5 mg PO DAILY prostate 09/21/25 lisinopril 10 mg tablet 10 mg PO DAILY BP 09/21/25 loperamide 2 mg capsule (Anti-Diarrheal (loperamide)) 2 mg PO Q6H PRN diarrhea 09/21/25 mecobalamin (vitamin B12) 500 mcg chewable tablet 500 mcg PO DAILY supplement 09/21/25 metformin 500 mg tablet 500 mg PO BID diabetes 09/21/25 oxybutynin chloride 10 mg tablet,extended release 24 hr 10 mg PO DAILY bladder 09/21/25 pravastatin 10 mg tablet 10 mg PO QHS cholesterol 09/21/25 tamsulosin 0.4 mg capsule 0.4 mg PO DAILY bladder 09/21/25 metoprolol tartrate 50 mg tablet 50 mg PO BID #0 tabs 09/26/25 oxycodone 5 mg tablet 10 mg (2 x 5 mg) PO Q4H PRN PRN Pain Score 4-10 5 days #12 tabs 09/26/25 pantoprazole 20 mg tablet,delayed release 40 mg (2 x 20 mg) PO DAILY #0 tabs 09/26/25 rivaroxaban 10 mg tablet (Xarelto) 20 mg (2 x 10 mg) PO DINNER #0 tabs 09/26/25
--- NOTE | 2025-09-26 14:04 | CASEMGMT ---
Signed med list, transport form and trf to ext care given to dc health care legal assistant to complete final dc plans. 7000 completed.
--- NOTE | 2025-09-26 14:13 | CASEMGMT ---
Discharge Planning Discharge orders, signed med list, and transport time sent via [facility] to [facility]. Physicians will transport pt by cot at 6:30p. Nursing, RN CM, pt, and his daughter (Emperatriz) updated. Valarie Trejo DC Planning Asst.
--- NOTE | 2025-09-26 16:17 | NURSING ---
Report called to Mckenna at [facility] [phone] pt will be picked up at 18:30.
--- NOTE | 2025-10-01 16:58 | PCM.DC.SUM ---
Providers Date of Admission: 09/21/25 Date of Discharge: 09/26/25 Primary Care Physician: ISABELLE Baird Consultations 09/21/25 18:52 Consult: Orthopedics Routine Consulting Provider: Michael Jeff Reason for Consult: Right femoral neck fracture EMERGENT Consult: No MD Notified: Yes Date Notified: 09/21/25 Time Notified: 18:32 Method of Notification: Verbal Reason For Visit: RIGHT HIP FX Diagnosis Discharge Diagnosis (1) History of hip fracture: Status: Acute Code(s): Z87.81 - Personal history of (healed) traumatic fracture (2) Nondisplaced fracture of neck of right femur: Status: Acute Code(s): S72.001A - Fracture of unspecified part of neck of right femur, initial encounter for closed fracture (3) Displaced fracture of right femoral neck: Status: Acute Code(s): S72.001A - Fracture of unspecified part of neck of right femur, initial encounter for closed fracture (4) Alzheimer's dementia: Status: Acute Code(s): G30.9 - Alzheimer's disease, unspecified; F02.80 - Dementia in other diseases classified elsewhere, unspecified severity, without behavioral disturbance, psychotic disturbance, mood disturbance, and anxiety (5) Essential hypertension: Status: Acute Code(s): I10 - Essential (primary) hypertension Plan 1. Nondisplaced right femoral neck fracture secondary to osteoporosis and mechanical fall-postop day 2 right hip hemiarthroplasty, PT and OT will see the patient, he will need either skilled inpatient care or transfer to a rehab unit for continuing PT and OT #2 Alzheimer's dementia-complicates care, management, recovery, and prognosis #3 GERD-patient is currently on a PPI #4 essential hypertension-patient will remain on his present blood pressure medications and his blood pressure will be monitored #5 elevated creatinine-on admission-corrected at this time #6 hyperlipidemia-patient is on fenofibrate and a statin #7 type 2 diabetes-patient is on metformin currently #8 BPH-patient is on Flomax #9 atelectasis at the left lung base-continue DuoNeb aerosol treatment #10 hypoxia-probably secondary atelectasis, patient is on low-flow oxygen at this time, pulse ox will be monitored #11 Paroxysmal atrial fibrillation-patient was currently on Xarelto, at the time of discharge I will increase it to 20 mg daily, I have decided to place the patient on metoprolol for rate control, he remains in sinus rhythm at this time Total clinical time spent by myself addressing the patient's medical issues, reviewing all of his data, and collaborating with patient's care team: 35 minutes Medications at Discharge Home Medications aspirin 81 mg tablet,delayed release (Adult Aspirin Regimen) 81 mg PO DAILY adult regimen 09/21/25 cholecalciferol (vitamin D3) 50 mcg (2,000 unit) capsule (D3-2000) 2,000 unit PO DAILY supplement 09/21/25 divalproex 125 mg tablet,delayed release 125 mg PO DAILY mood 09/21/25 donepezil 5 mg tablet 5 mg PO DAILY dementia 09/21/25 fenofibrate 150 mg capsule 145 mg PO DAILY diet 09/21/25 finasteride 5 mg tablet 5 mg PO DAILY prostate 09/21/25 lisinopril 10 mg tablet 10 mg PO DAILY BP 09/21/25 loperamide 2 mg capsule (Anti-Diarrheal (loperamide)) 2 mg PO Q6H PRN diarrhea 09/21/25 mecobalamin (vitamin B12) 500 mcg chewable tablet 500 mcg PO DAILY supplement 09/21/25 metformin 500 mg tablet 500 mg PO BID diabetes 09/21/25 oxybutynin chloride 10 mg tablet,extended release 24 hr 10 mg PO DAILY bladder 09/21/25 pravastatin 10 mg tablet 10 mg PO QHS cholesterol 09/21/25 tamsulosin 0.4 mg capsule 0.4 mg PO DAILY bladder 09/21/25 metoprolol tartrate 50 mg tablet 50 mg PO BID #0 tabs 09/26/25 pantoprazole 20 mg tablet,delayed release 40 mg (2 x 20 mg) PO DAILY #0 tabs 09/26/25 rivaroxaban 10 mg tablet (Xarelto) 20 mg (2 x 10 mg) PO DINNER #0 tabs 09/26/25 Lactobacillus acidophilus (Acidophilus chewable tablet) 1 tab PO DAILY 09/27/25 cimetidine 400 mg tablet 400 mg PO BID 09/27/25 naproxen 375 mg tablet 375 mg PO BID PRN pain 09/27/25 omeprazole 20 mg capsule,delayed release 20 mg PO DAILY 09/27/25 polyethylene glycol 3350 17 gram/dose oral powder (Miralax) 17 g PO QDAY PRN constipation 09/27/25 sennosides 8.6 mg-docusate sodium 50 mg tablet (Senexon-S) 2 tab-cap PO QHS 09/27/25 tramadol 50 mg tablet 50 mg PO Q6H PRN pain 10 days #30 tabs 09/28/25 Hospital Course Operations - (Hemiarthroplasty of the right hip) Procedures None Summary of Care Provided Minutes Spent on Discharge: 32 Hospital Course: This 85-year-old white male was admitted directly to [place] [address] from an outside emergency room where he went for evaluation following a fall at his assisted living facility. Patient lives some hours away at an assisted living facility and sustained a mechanical fall resulting in a right femoral neck fracture. Patient was admitted to [place] [address], he was seen in consultation by orthopedic surgery and taken for right hemiarthroplasty. Patient has a history of dementia and was lethargic postop, there was an episode where he went into atrial fibrillation for time at a rapid ventricular response and then converted after digoxin administration. Patient required low-flow oxygen during his hospitalization probably secondary to atelectasis. On 09/26/2025, patient was seen and examined:no apparent distress Constitutional Narrative: Patient is lethargic and sleepy General Appearance: cooperative, well kempt and well developed HEENT normocephalic, head/scalp atraumatic and moist oral mucous membranes Eyes PERRL, EOMs intact bilaterally and conjunctivae normal Neck supple, no JVD, thyroid normal and no carotid bruits General: trachea midline Resp normal respiratory effort, no retractions, no use of accessory muscles and clear to auscultation bilaterally Auscultation: Negative for rales, rhonchi or wheezes Cardio regular rate, regular rhythm, S1 normal heart sound, S2 normal heart sound, no murmurs, no rub and no gallops GI normal to inspection, nondistended, normoactive bowel sounds, soft to palpation, non-tender and non-distended Extremity no clubbing, cyanosis or edema Skin no rashes or lesions noted General Skin Exam: no breakdown Neuro CN's II-XII intact bilaterally, moves all extremities and no focal motor deficits Neuro Narrative: Patient is lethargic and sleepy Psych Psych Narrative: Patient is lethargic and sleepy Patient was discharged to an extended care facility in stable condition on 09/26/2025 Weight / BMI Weight Weight: 87.09 kg Body Mass Index (BMI) 27.5 ABG / Lab / Microbiology Data 09/25/25 06:10 09/24/25 10:51 D/C Instructions DC O2, CPAP, BIPAP Needs Home O2 Discharge instructions: Yes Type of respiratory needs?: Oxygen Oxygen frequency: Continuous Continuous oxygen liters per minute: 2 L DC home with Oxygen: No Meaningful Use Info Meaningful Use Meaningful Use Diagnoses (Choose all that apply): None applicable Discharge Plan Admission Admit Date/Time: 09/21/25 18:24 Primary Reason for Your Visit: Nondisplaced right femoral neck fracture Attending Provider: Juanjose Hernandez Primary Care Provider: Kodi Cornejo Consulting Providers: Michael Jeff; Zayra Redd Discharge Orders/Prescriptions Prescriptions: New pantoprazole 20 mg Tablet,Delayed Release (Dr/Ec) 40 mg PO DAILY Qty: 0 0RF metoprolol tartrate 50 mg Tablet 50 mg PO BID Qty: 0 0RF Xarelto 10 mg Tablet 20 mg PO DINNER Qty: 0 0RF Continued aspirin [Adult Aspirin Regimen] 81 mg tablet,delayed release (DR/EC) 81 mg PO DAILY cholecalciferol (vitamin D3) [D3-2000] 50 mcg (2,000 unit) capsule 2,000 unit PO DAILY divalproex 125 mg tablet,delayed release (DR/EC) 125 mg PO DAILY donepezil 5 mg tablet 5 mg PO DAILY Rx Instructions: takes in evening fenofibrate 150 mg capsule 145 mg PO DAILY finasteride 5 mg tablet 5 mg PO DAILY lisinopril 10 mg tablet 10 mg PO DAILY metformin 500 mg tablet 500 mg PO BID oxybutynin chloride 10 mg tablet extended release 24hr 10 mg PO DAILY pravastatin 10 mg tablet 10 mg PO QHS tamsulosin 0.4 mg capsule 0.4 mg PO DAILY mecobalamin (vitamin B12) 500 mcg tablet,chewable 500 mcg PO DAILY loperamide [Anti-Diarrheal (loperamide)] 2 mg capsule 2 mg PO Q6H PRN (Reason: diarrhea) Discontinued Acidophilus Tablet,Chewable 1 tab PO DAILY cimetidine 400 mg tablet 400 mg PO BID naproxen 375 mg tablet 375 mg PO BID Rx Instructions: take with meals omeprazole 20 mg capsule,delayed release(DR/EC) 20 mg PO DAILY hydralazine 25 mg tablet 25 mg PO TID PRN (Reason: BP) No Action polyethylene glycol 3350 [Miralax] 17 gram/dose powder 17 g PO QDAY PRN (Reason: constipation) naproxen 375 mg tablet 375 mg PO BID PRN (Reason: pain) omeprazole 20 mg capsule,delayed release(DR/EC) 20 mg PO DAILY sennosides-docusate sodium [Senexon-S] 8.6-50 mg tablet 2 tab-cap PO QHS cimetidine 400 mg tablet 400 mg PO BID Acidophilus Tablet,Chewable 1 tab PO DAILY tramadol 50 mg tablet 50 mg PO Q6H PRN (Reason: pain) 10 Days Qty: 30 0RF Referrals / Follow Up: Michael Jeff MD [Med Staff - Active Staff, Orthopedics] - See Referral Note Referral Note: In 2 weeks, call for an appointment Kodi Cornejo PA [Primary Care Provider, Medical] Disposition Disposition (needs filled in before D/C Order can be placed): Detention Facility Charges/Coding Visit Charges Inpatient E&M: 13264 Disch Hosp >30min
== END 2025-09-26 19:14 | disposition skilled nursing facility (03) | DRG 522 ==
PROVIDERS: Orthopaedic Surgery Sports Medicine; Admitting Provider Internal Medicine; Visit Provider Internal Medicine
PROC: 0SRR0J9 Replacement of Right Hip Joint, Femoral Surface with Synthetic Substitute, Cemented, Open Approach (ICD-10-PCS; CPT 27125; principal; 2025-09-23 07:10)
DX: M80.051A Age-related osteoporosis with current pathological fracture, right femur, initial encounter for fracture (principal); J98.11 Atelectasis; E11.9 Type 2 diabetes mellitus without complications; Z66 Do not resuscitate; G30.9 Alzheimer's disease, unspecified; I48.0 Paroxysmal atrial fibrillation; E78.5 Hyperlipidemia, unspecified; I10 Essential (primary) hypertension; F02.80 Dementia in other diseases classified elsewhere, unspecified severity, without behavioral disturbance, psychotic disturbance, mood disturbance, and anxiety; W18.39XA Other fall on same level, initial encounter; K21.9 Gastro-esophageal reflux disease without esophagitis; N40.0 Benign prostatic hyperplasia without lower urinary tract symptoms; R09.02 Hypoxemia; Z79.01 Long term (current) use of anticoagulants; Z79.82 Long term (current) use of aspirin; Z79.84 Long term (current) use of oral hypoglycemic drugs; Z79.899 Other long term (current) drug therapy; Z86.16 Personal history of COVID-19; Z87.891 Personal history of nicotine dependence
CPT/HCPCS: 36415; 36600; 73502; 80053; 82803; 82962; 85025; 86850; 86900; 86901; 93005; 94640; 97163; 97167; 97530; C1776; A4216; J2405

== ENCOUNTER 2025-09-27 19:16 | Emergency (ER) | payer MEDICARE, OTHER, SELFPAY ==
[2025-09-27] VITALS (8 sets, daily range): BP systolic 120–136; BP diastolic 76–91; PULSE 94–98; RESP 16–18; TEMP 36.9; O2SAT 97–100; BMI 27.9
--- NOTE | 2025-09-27 19:29 | ED.VIS.GI ---
HPI HPI - GI History of Present Illness Chief Complaint: GI Bleed Detail of Chief Complaint: Patient limited informant due to dementia Informant: patient, EMS, SNF and other (Patient limited informant due to dementia.) Narrative Narrative: 85-year-old male DNR [facility] arrest history of diabetes, chronic kidney disease, dementia, hypertension reportedly on Xarelto. Recent hip fracture and hip surgery. Currently residing in [facility]. Was seen in the due to concern for lower GI bleed with dark stool. Patient has dementia is a very limited informant. Recent Illness/Hospitalization: Yes PFSH PFS Medical History Displaced fracture of right femoral neck Hiatal hernia Syncope Diabetes Kidney disease GERD (gastroesophageal reflux disease) Asthma Sleep apnea Hypertension Dementia Home Medications ?Medication ?Instructions ?Recorded ?Last Taken ?Type aspirin 81 mg tablet,delayed 81 mg PO DAILY adult regimen 09/21/25 Unknown History release (Adult Aspirin Regimen) cholecalciferol (vitamin D3) 50 2,000 unit PO DAILY supplement 09/21/25 Unknown History mcg (2,000 unit) capsule (D3-2000) divalproex 125 mg tablet,delayed 125 mg PO DAILY mood 09/21/25 Unknown History release donepezil 5 mg tablet 5 mg PO DAILY dementia 09/21/25 Unknown History fenofibrate 150 mg capsule 145 mg PO DAILY diet 09/21/25 Unknown History finasteride 5 mg tablet 5 mg PO DAILY prostate 09/21/25 Unknown History lisinopril 10 mg tablet 10 mg PO DAILY BP 09/21/25 Unknown History loperamide 2 mg capsule 2 mg PO Q6H PRN diarrhea 09/21/25 Unknown History (Anti-Diarrheal (loperamide)) mecobalamin (vitamin B12) 500 mcg 500 mcg PO DAILY supplement 09/21/25 Unknown History chewable tablet metformin 500 mg tablet 500 mg PO BID diabetes 09/21/25 Unknown History oxybutynin chloride 10 mg 10 mg PO DAILY bladder 09/21/25 Unknown History tablet,extended release 24 hr pravastatin 10 mg tablet 10 mg PO QHS cholesterol 09/21/25 Unknown History tamsulosin 0.4 mg capsule 0.4 mg PO DAILY bladder 09/21/25 Unknown History metoprolol tartrate 50 mg tablet 50 mg PO BID #0 tabs 09/26/25 Unknown Rx oxycodone 5 mg tablet 10 mg (2 x 5 mg) PO Q4H PRN PRN 09/26/25 Unknown Rx Pain Score 4-10 5 days #20 tabs pantoprazole 20 mg tablet,delayed 40 mg (2 x 20 mg) PO DAILY #0 tabs 09/26/25 Unknown Rx release rivaroxaban 10 mg tablet (Xarelto) 20 mg (2 x 10 mg) PO DINNER #0 tabs 09/26/25 Unknown Rx Lactobacillus acidophilus 1 tab PO DAILY 09/27/25 Unknown History (Acidophilus chewable tablet) cimetidine 400 mg tablet 400 mg PO BID 09/27/25 Unknown History naproxen 375 mg tablet 375 mg PO BID PRN pain 09/27/25 Unknown History omeprazole 20 mg capsule,delayed 20 mg PO DAILY 09/27/25 Unknown History release polyethylene glycol 3350 17 17 g PO QDAY PRN constipation 09/27/25 Unknown History gram/dose oral powder (Miralax) sennosides 8.6 mg-docusate sodium 2 tab-cap PO QHS 09/27/25 Unknown History 50 mg tablet (Senexon-S) Allergy/AdvReac Type Severity Reaction Status Date / Time No Known Allergies Allergy Verified 09/27/25 19:23 Surgical History History of appendectomy Social History Smoking Status: Former smoker ROS ROS ED ROS Narrative Unable to obtain due to the patient's underlying mental condition. His dementia. Review of Systems ROS Unobtainable: due to mental condition EXAM Physical Exam Narrative Exam Narrative: 85-year-old male lying in bed vital signs are stable afebrile. Pulse ox 100% on 2 L. No hypoxia on oxygen. Afebrile. Does not look septic or toxic. He is in no acute distress. Eyes are closed but he does answer limited questions. He has dementia and is a poor informant. HEENT exam pupils round reactive light. Dry mucous membranes. Neck no lymphadenopathy. Trachea midline. Back nontender. Lungs clear to auscultation bilaterally. Heart regular rhythm rate about 90 no murmur. Chest wall ribs nontender. Abdomen soft, nontender, nondistended, normal bowel sounds without peritoneal signs. Extremities is a dressing on his right hip from a recent hip surgery. There is no cellulitis is not warm or red. Dorsi plantarflexion intact. He has market president strength. He was rolled to his left by a nurse I did a rectal exam he had brown stool currently no gross blood or melena. Neurologically his eyes are closed but he will open them he answers limited questions due to his dementia. Const Vital Signs: 09/27/25 19:19 09/27/25 19:30 09/27/25 19:45 Temperature 98.4 F Temperature Source Oral Pulse Rate 96 95 94 Respiratory Rate 16 16 16 Blood Pressure 136/83 H 128/83 H 120/79 Blood Pressure Mean 100 98 92 Pulse Ox 100 100 99 Oxygen Delivery Method Nasal Cannula Nasal Cannula Nasal Cannula Oxygen Flow Rate (L/min) 2 2 2 09/27/25 20:00 Temperature Temperature Source Pulse Rate 98 Respiratory Rate 16 Blood Pressure 132/85 H Blood Pressure Mean 100 Pulse Ox 100 Oxygen Delivery Method Room Air Oxygen Flow Rate (L/min) MDM MDM MDM Narrative Medical decision making narrative: 85-year-old male sent in for possible rectal bleeding. Recent hip surgery. I did speak to the patient's extended-care facility. They told me he has been on pain medication. He is new to their facility within the last 24 hours after he was discharged in the hospital for his hip fracture repair. They noticed blood from his rectum today when he changed him. Repeat exam around 8:40 PM patient is resting comfortably. I went over his test results with him. His blood work stable. He was discharged with hemoglobin 9.2 it is 9.4 currently. There is no obvious gross bleeding currently. He was received IV fluids. He will be discharged back to the extended-care facility. History & Record Review Discussion w/independent historian: EMS personnel, Patient (Limited due to dementia.) and Other (I called and spoke to the nurse at his [facility] facility around 7:30 PM.) Additional record(s) reviewed:: Prior inpatient record, Prior outpatient record, Prior ED visit and Prior labs Lab Data Attestation: I reviewed the patient's lab results. Lab results narrative: CBC shows a white count 11.9. H&H 9.4 and 29.8. Platelets 288. This is consistent with prior CBCs. Electrolytes show gap of 8. BUN and creatinine of 34 and 0.98 consistent with dehydration. He is receiving IV fluids. Liver enzymes unremarkable AST 43. Chest x-ray showed no acute abnormality. Labs: Laboratory Results - last 24 hr 09/27/25 19:23 WBC 11.9 H RBC 3.08 L Hgb 9.4 L Hct 29.8 L MCV 96.8 H MCH 30.5 MCHC 31.5 L RDW Std Deviation 51.2 H RDW Coeff of Latrice 14.5 Plt Count 288 MPV 9.6 Immature Gran % (Auto) 0.800 Neut % (Auto) 76.3 H Lymph % (Auto) 12.4 L Tal[place] % (Auto) 8.1 Eos % (Auto) 2.1 Baso % (Auto) 0.3 Absolute Neuts (auto) 9.1 H Absolute Lymphs (auto) 1.47 Nucleated RBC % 0 Sodium 140 Potassium 4.1 Chloride 101 Carbon Dioxide 31.1 Anion Gap 8 BUN 34 H Creatinine 0.98 Estim Creat Clear Calc 63.91 Est GFR (MDRD) Non-Af 76 BUN/Creatinine Ratio 34.6 H Glucose 123 H Calcium 9.1 Total Bilirubin 0.87 AST 43 H ALT 25 Alkaline Phosphatase 80 Total Protein 6.0 Albumin 2.9 L Globulin 3.1 Albumin/Globulin Ratio 0.9 Radiography Chest X-Ray - ED: 1 View, Read by ED Physician, Normal, Heart, Lungs, Mediastinum, Bony Structures, No Acute Disease and Chronic Changes Diagnostic Testing: Chest x-ray, portable, single view interpreted by myself shows a normal cardiac silhouette. Normal lung richardson. Chronic changes. No pneumonia. No large fluid collection. Discharge Plan Triage Chief Complaint: GI Bleed ED Provider: Chris Loredo Dx/Rx/DC Orders Prescriptions: No Action aspirin [Adult Aspirin Regimen] 81 mg tablet,delayed release (DR/EC) 81 mg PO DAILY cholecalciferol (vitamin D3) [D3-2000] 50 mcg (2,000 unit) capsule 2,000 unit PO DAILY divalproex 125 mg tablet,delayed release (DR/EC) 125 mg PO DAILY donepezil 5 mg tablet 5 mg PO DAILY Rx Instructions: takes in evening fenofibrate 150 mg capsule 145 mg PO DAILY finasteride 5 mg tablet 5 mg PO DAILY lisinopril 10 mg tablet 10 mg PO DAILY metformin 500 mg tablet 500 mg PO BID oxybutynin chloride 10 mg tablet extended release 24hr 10 mg PO DAILY pravastatin 10 mg tablet 10 mg PO QHS tamsulosin 0.4 mg capsule 0.4 mg PO DAILY mecobalamin (vitamin B12) 500 mcg tablet,chewable 500 mcg PO DAILY loperamide [Anti-Diarrheal (loperamide)] 2 mg capsule 2 mg PO Q6H PRN (Reason: diarrhea) pantoprazole 20 mg Tablet,Delayed Release (Dr/Ec) 40 mg PO DAILY Qty: 0 0RF metoprolol tartrate 50 mg Tablet 50 mg PO BID Qty: 0 0RF Xarelto 10 mg Tablet 20 mg PO DINNER Qty: 0 0RF polyethylene glycol 3350 [Miralax] 17 gram/dose powder 17 g PO QDAY PRN (Reason: constipation) naproxen 375 mg tablet 375 mg PO BID PRN (Reason: pain) omeprazole 20 mg capsule,delayed release(DR/EC) 20 mg PO DAILY sennosides-docusate sodium [Senexon-S] 8.6-50 mg tablet 2 tab-cap PO QHS cimetidine 400 mg tablet 400 mg PO BID Acidophilus Tablet,Chewable 1 tab PO DAILY oxycodone 5 mg tablet 10 mg PO Q4H PRN PRN (Reason: Pain Score 4-10) 5 Days Qty: 20 0RF Primary Care Provider: Dennise Ibarra Referrals: Kodi Cornejo PA [Non-Staff, Medical] Print Language: Setswana
[2025-09-27 19:35] LABS: Hematocrit 29.8 % (40-54); Hemoglobin 9.4 g/dL (13.0-16.5); Immature Granulocytes Count 0.090 X10^3/uL (0.0-0.0); Mean Corp Hgb Conc 31.5 g/dL (32-36); Mean Corpuscular Volume 96.8 fL (80-94); Mean Platelet Vol. 9.6 fl (6.2-12.0); NRBC Flagged by Analyzer 0 % (0-5); Platelet Count 288 K/mm3 (150-450); RBC Distribution Width CV 14.5 % (11.6-14.6); RBC Distribution Width SD 51.2 fl (35.1-43.9); Red Blood Count 3.08 M/mm3 (4.6-6.2); White Blood Count 11.9 K/mm3 (4.4-11.0)
[2025-09-27 19:59] LABS: AST(SGOT) 43 U/L (<=37); Alanine Aminotransfer ALT/SGPT 25 U/L (<=46); Albumin, Serum 2.9 g/dL (3.4-4.8); Alkaline Phosphatase 80 U/L (40-129); Anion Gap 8 (5-15); BUN 34 mg/dL (4-19); BUN/Creat Ratio 34.6 RATIO (10-20); Calcium,Total 9.1 mg/dL (7.6-11.0); Carbon Dioxide 31.1 mmol/L (21.0-32.0); Chloride 101 mmol/L (98-108); Estimated Creatinine Clearance 63.91 ml/min (50-250); Globulin 3.1 g/dL (2.2-4.2); Glucose 123 mg/dL (70-99); Potassium 4.1 mmol/L (3.3-5.1)
--- OUTSIDE RECORDS SUMMARY | 2025-09-27 20:09 | XMS RPT_ITS | CCD ---
Author Organization [facility] Care Team Providers Care Instructional Technology Instructor Name Role Phone GUIDO([facility] KOKI Unavailable Unavailab Palmer([facility] KOKI Unavailable UnavailLINDSEY Solomon Unavailable Unavailable GUIDO([facility] KOKI Unavailable UnavailLINDSEY Solomon Unavailable Unavailable GUIDO([facility] KOKI Unavailable Unavailab Palmer([facility] KOKI Unavailable UnavailLindsey Solomon Primary Care Provider [phone] [facility], [facility] Unavailable Unavailable Yung Ahmed A Unavailable Julita Stevens Unavailable Nancy Underwood Unavailable Yung MILLER, Ahmed A Unavailable Nancy Underwood APRN, CNP Unavailable Monalisa Arevalo APRN, CNP Unavailable [facility] FACILITIES PROJECT MANAGER, Xiao Primary Care Provider LINDSEY LANDAVERDE Primary Care Provider MD SARAHI MCNAMARA Emergency Provider [phone] MYNOR GONZALEZ MD Attending Unavailable MYNOR GONZALEZ MD Primary Care Unavailable MYNOR GONZALEZ MD Admitting Unavailable ESC, XIAO Primary Care Provider MD VALENTE PARKER Emergency Provider MD MELISA CAREY Admit Provider MD MELISA CAREY Attending Provider MD VENANCIO LU Provider MD MONTRELL EDWARD Primary Care Provider MD [place] DENIZ Emergency Provider Unavailable MD PRESTON BERKOWITZ Admit Provider MD PRESTON BERKOWITZ Attending Provider [phone] ESCH, XIAO Attending Provider MONTRELL EDWARD MD Primary Care Provider BRYANNA GAFFNEY MD Emergency Provider KHALIF ZAYAS MD Admit Provider [phone] KHALIF ZAYAS MD Attending Provider [phone] JAEL ASHLEY DO Primary Care Provider Unavaila BRYANNA Vaughan MD Emergency Provider [phone] RL MARTINES MD Admit Provider Unavailable RL [...] Care Unavailable ESCH, XIAO Attending Unavailable MONTRELL DEWARD Primary Care Unavailable Allergies Allergy Classification Reported Allergen(s) Allergy Type Date of Onset Reaction(s) Facility (20 sources) Morphine; Translations: [MORPHINE] Drug Allergy 6 Other (See Comments) [facility] (10 sources) Sulfonamides (Antibiotic) Propensity to adverse reactions to drug 2 [facility] (20 sources) Sulfonamides (Antibiotic); Translations: [SULFANILAMIDES] Allergy to substance [address] [facility] (1 source) Morphine Drug Allergy 5 [facility] Repository Medications Current Medications Medication Drug Class(es) [...] karie th three times daily Hydrocodone Bit/Acetaminophen ([place] 5/325 Mg Tablet) 1 EACH Tablet Active [...] MOUTH DAILY. 01/22/2025 active Not Available Not Otheron 05-22-2020 Interpretation and review of laboratory results Abnormal [facility] TSHon 05-22-2020 TSH Qn 1.900 m[IU]/L [facility] Vitamin B12on 05-22-2020 Cobalamin (Vitamin B12) [Mass/Vol] 228 pg/mL Low 239 - 931 pg/mL [facility] Interpretation and review of laboratory results Abnormal [facility] Echocardiogram complete (M-M ode/2D)on 04-27-2020 Transthoracic Echo WILEY Thomas Exam Date: 04/27/2020 10:10 Ordering Physician: GORGE COLON MD Age 80 Gender: M Exam Location: [facility] Primary Care Physician: LINDSEY LANDAVERDE MD : : 1940 Ht (in): 72 Wt (lb): 200 Technologist: ASHLYN RAE RVS, RCS BSA: 2.16 m Procedure CPT: Patient Room: [facility] Indications: Abnormal ECG CARDIAC HISTORY Established Rfid Engineer: GORGE COLON MD Shortness of Breath: No Actively having Chest Pain: No History of CABG: No Date: N/A History of PTCA/Stent: No Date: N/A History of Valve Intervention: No Date: N/A Valve Intervention Details: N/A Other History: HTN BP: 133 / 84 HR: 66 Contrast: NONE Technical Quality: Adequate MEASUREMENTS (Male / Female) Normal Values 2D ECHO LV Diastolic Diameter ARLENE 3.4 cm 4.2 - 5.9 / 3 [...] without effusion. Aorta Normal ascending aorta dimension. [employer] Favian, Rad Results In - 04/27/2020 11:44 AM EDT Transthoracic Echo Report WILEY MEEK Exam Date: 04/27/2020 10:10 Ordering Physician: GORGE COLON MD Age 80 Gender: M Exam Location: [facility] Primary Care Physician: LINDSEY LANDAVERDE MD : : 1940 Ht (in): 72 Wt (lb): 200 Technologist: ASHLYN RAE RVS, RCS BSA: 2.16 m Procedure CPT: Patient Room: [facility] Indications: Abnormal ECG CARDIAC HISTORY Established Rfid Engineer: GORGE COLON MD Shortness of Breath: No Actively having Chest Pain: No History of CABG: No Date: N/A History of PTCA/Stent: No Date: N/A History of Valve Intervention: No Date: N/A Valve Intervention Details: N/A Other History: HTN BP: 133 / 84 HR: 66 Contrast: NONE Technical Quality: Adequate MEASUREMENTS (Male / Female) Normal Values 2D ECHO LV Diastolic Diameter ARLENE 3.4 cm 4.2 - 5.9 / 3 [...] Signed) Final Date: 27 April 2020 11:43 [facility] Vital Signs Date Time Vital Sign Value Performing Clinician Facility 07-28-2025 01:00-0400 Body height 182.88 cm Xiao [facility] [place] - [facility] 07-28-2025 01:00-0400 Diastolic blood pressure 77 mm[facility]Hg[facility] [place] [facility] 07-28-2025 01:00-0400 Heart rate 74 /min [facility] [place] 07-28-2025 01:00-0400 Respiratory rate 16 /min [facility] [place] [facility] [place] 07-28-2025 01:00-0400 SaO2% (BldA) [Mass fraction] 95 % [facility] [place] [facility] [place] [facility] 07-28-2025 01:00-0400 Systolic blood pressure 127 mm[Hg] [facility] [place] [facility] [place] [facility] 07-22-2025 12:16-0400 Diastolic blood pressure 85 mm[Hg] JAEL ASHLEY [facility] 07-22-2025 12:16-0400 Heart rate 89 /min JAEL ASHLEY [facility] 07-22-2025 12:16-0400 SaO2% (BldA) [Mass fraction] 93 % JAEL BOYD [facility] 07-22-2025 12:16-0400 Systolic blood pressure 134 mm[Hg] JAEL ASHLEY [facility] 07-22-2025 12:00-0400 Body temperature 96.8 [degF] JAEL ASHLEY [facility] 07-22-2025 08:08-0400 Respiratory rate 16 /min JAEL ASHLEY [facility] 07-22-2025 06:00-0400 Body weight 84.37 kg JAEL BOYD [facility] 07-19-2025 14:21-0400 Body height 185.42 cm JAEL ASHLEY [facility] 06-30-2025 01:00-0400 Body height 182.88 cm Xiao [facility] [place] 06-30-2025 01:00-0400 Body mass index (BMI) [Ratio] 26.8 kg/m2 [facility] [place] [facility] 06-30-2025 01:00-0400 Body weight 89.72 kg Xiao [facility] [place] 06-30-2025 01:00-0400 Diastolic blood pressure 56 mm[Hg] [facility] [place] 06-30-2025 01:00-0400 Heart rate 90 /min [facility] [place] 06-30-2025 01:00-0400 Respiratory rate 16 /min [facility] [place] 06-30-2025 01:00-0400 SaO2% (BldA) [Mass fraction] 94 % [facility] [place] [facility] [place] 06-30-2025 01:00-0400 Systolic blood pressure 138 mm[Hg] X[facility] [place]: VISITING [...] SaO2% (BldA) [Mass fraction] 96 % [facility] [employer] [place]: [facility] [...] SaO2% (BldA) [Mass fraction] 97 % [facility] [employer] [place] 02-24-2025 01:00-0400 Systolic blood pressure 131 mm[Hg] Xiao Valentine [place] 10-24-2024 15:28-0500 SaO2% (BldA) [Mass fraction] 97 % MONTRELL EDWARD MD Work Phone: [facility] 10-24-2024 14:00-0500 Diastolic blood pressure 90 mm[Hg] MONTRELL EDWARD MD Work Phone: [facility] 10-24-2024 14:00-0500 Heart rate 98 /min MONTRELL EDWARD MD Work Phone: [facility] 10-24-2024 14:00-0500 Systolic blood pressure 146 mm[Hg] MONTRELL EDWARD MD Work Phone: [facility] 10-24-2024 12:26-0500 Body temperature 96.9 [degF] MONTRELL EDWARD MD Work Phone: [facility] 10-24-2024 12:26-0500 Respiratory rate 16 /min MONTRELL EDWARD MD Work Phone: [facility] 10-24-2024 06:00-0500 Body weight 86.86 kg MONTRELL EDWARD MD Work Phone: [facility] 10-22-2024 18:11-0500 Body height 182.88 cm MONTRELL EDWARD MD Work Phone: [facility] 12-24-2023 12:16-0400 Body temperature 97.8 [degF] MD MONTRELL EDWARD Work Phone: [facility] 12-24-2023 12:16-0400 Diastolic blood pressure 87 mm[Hg] MD MONTRELL EDWARD Work Phone: [facility] 12-24-2023 12:16-0400 Heart rate 90 /min MD MONTRELL EDWARD Work Phone: [facility] 12-24-2023 12:16-0400 Respiratory rate 18 /min MD MONTRELL EDWARD Work Phone: [facility] 12-24-2023 12:16-0400 SaO2% (BldA) [Mass fraction] 96 % MD MONTRELL EDWARD Work Phone: [facility] 12-24-2023 12:16-0400 Systolic blood pressure 144 mm[Hg] MD MONTRELL EDWARD Work Phone: [facility] 12-24-2023 06:00-0400 Body weight 88.54 kg MD MONTRELL EDWARD Work Phone: [facility] 12-22-2023 21:25-0500 Body height 182.88 cm MD MONTRELL EDWARD Work Phone: [facility] 06-02-2023 15:44-0400 Body temperature 97.5 [degF] [facility] Work Phone: [facility] 06-02-2023 15:44-0400 Diastolic blood pressure 93 mm[Hg] [facility] Work Phone: [facility] 06-02-2023 15:44-0400 Heart rate 72 /min [facility] Work Phone: [facility] 06-02-2023 15:44-0400 Respiratory rate 18 /min [facility] Work Phone: [facility] 06-02-2023 15:44-0400 SaO2% (BldA) [Mass fraction] 99 % [facility] Work Phone: [facility] 06-02-2023 15:44-0400 Systolic blood pressure 169 mm[Hg] XIAO VALENTINE Work Phone: [facility] 06-02-2023 05:40-0400 Body weight 86.78 kg XIAO VALENTINE Work Phone: [facility] 06-01-2023 01:20-0400 Body height 182.88 cm XIAO VALENTINE Work Phone: [facility] 09-01-2022 14:45-0500 Diastolic blood pressure 105 mm[Hg] LINDSEY AKHIL Work Phone: [facility] 09-01-2022 14:45-0500 Heart rate 78 /min LINDSEY LANDAVERDE Work Phone: [facility] 09-01-2022 14:45-0500 SaO2% (BldA) [Mass fraction] 96 % LINDSEY AKHIL Work Phone: [facility] 09-01-2022 14:45-0500 Systolic blood pressure 161 mm[Hg] LINDSEY LANDAVERDE Work Phone: [facility] 09-01-2022 05:48-0500 Respiratory rate 16 /min LINDSEY LANDAVERDE Work Phone: [facility] 08-31-2022 23:52-0500 Body weight 86.18 kg LINDSEY LANDAVERDE Work Phone: [facility] 06-13-2021 11:01-0400 Diastolic blood pressure 89 mm[Hg] Ney Mcdanielette DO Work Phone: [facility] 06-13-2021 11:01-0400 Heart rate 77 /min Ney Couette DO Work Phone: [facility] 06-13-2021 11:01-0400 Respiratory rate 14 /min Ney Couette DO Work Phone: [facility] 06-13-2021 11:01-0400 SaO2% (BldA) [Mass fraction] 96 % Ney Gray DO Work Phone: [employer] [facility] 06-13-2021 11:01-0400 Systolic blood pressure 151 mm[Hg] Ney Gray DO Work Phone: [employer] [facility] 06-13-2021 09:30-0400 Body height 182.9 cm Ney Gray DO Work Phone: [facility] 06-13-2021 09:30-0400 Body mass index (BMI) [Ratio] 27.4 kg/m2 Ney Gray DO Work Phone: [facility] 06-13-2021 09:30-0400 Body temperature 98.01 [degF] Ney Gray DO Work Phone: [facility] 06-13-2021 09:30-0400 Body weight 91.63 kg Ney Gray DO Work Phone: [facility] 04-27-2020 11:43-0400 Diastolic blood pressure Gorge Colon [facility] Encounters Encounter Date Encounter Type Care Provider Facility Start: 07-28-2025 Xiaopatel Valentine [place]: V[facility]ING [facility] [place] 13 Start: 07-23-2025 Namrata Trujillo [place]: V[facility]ITING [facility] 11 Start: 07-19-2025 End: 07-22-2025 Evaluation and management of inpatient RL MARTINES MD [facility] Start: 06-30-2025 Home visit est pt mod-hi severity 40 minutes Xiaopatel Valentine [place] [facility] [place] 13 Start: 06-30-2025 Xiaopatel Valentine [place] [facility] 13 Start: 05-12-2025 [facility] [place] [facility] Start: 05-02-2025 ambulatory [facility] Facility:C H Start: 04-30-2025 ambulatory [facility] Facility:C H Start: 04-28-2025 Home visit est pt mod-hi severity 40 minutes Xiao Esc [place] [place] 13 Start: 04-28-2025 Xiao Esc [place] 13 Start: [facility] [place] [facility] 13 Start: 11-06-2024 ambulatory [facility] Facility:C H Start: 10-30-2024 ambulatory [facility] Facility:C H Start: 10-22-2024 End: 10-24-2024 Evaluation and management of inpatient MONTRELL EDWARD MD Work Phone: [facility] Start: 09-18-2024 ambulatory [facility] Facility:C H Start: 12-27-2023 Registered Referred MD MONTRELL EDWARD Work Phone: [facility] Start: 12-22-2023 End: 12-24-2023 Evaluation and management of inpatient MD MONTRELL EDWARD Work Phone: [facility]-FOURTH FLOOR Start: 12-22-2023 End: 12-24-2023 observation encounter MD MONTRELL EDWARD Work Phone: [facility] Mayra Work Phone: Start: 06-01-2023 End: 06-02-2023 Evaluation and management of inpatient XIAO VALENTINE Work Phone: [facility]-FOURTH FLOOR Start: 09-29-2022 End: 09-29-2022 ambulatory [facility] Start: 08-31-2022 End: 09-01-2022 Emergency department patient visit LINDSEY LANDAVERDE Work Phone: [facility]-ED Start: 06-13-2021 End: 06-13-2021 Emergency department patient visit Ney Gray DO Work Phone: [facility] Emergency Dept Comment on above: ZAY (acute kidney in jury) ([facility]) (Primary Dx); Dehydration; Dementia without behavioral disturbance, unspecified dementia type (HCC) Start: 08-07-2020 End: 08-07-2020 Subsequent hospital visit by physician Angelo Estrella Work Phone: [facility] Comment on above: Obstructive sleep ap corazon Start: 08-03-2020 End: 08-03-2020 Subsequent hospital visit by physician Angelo Estrella Work Phone: [facility] Lab Comment on above: Obstructive sleep ap corazon Start: 06-25-2020 End: 06-25-2020 Subsequent hospital visit by physician Angelo Estrella Work Phone: [facility] EEG Comment on above: Altered mental statu s, unspecified altered mental status type; Obstructive sleep apnea Start: 06-25-2020 End: 06-25-2020 Subsequent hospital visit by physician Angelo Estrella Work Phone: [facility] Comment on above: Altered mental statu s, unspecified altered mental status type; Obstructive sleep apnea Start: 06-10-2020 End: 06-10-2020 Subsequent hospital visit by physician Angelo Estrella Work Phone: [facility] Lab Comment on above: Altered mental statu s, unspecified altered mental status type; Obstructive sleep apnea Start: 05-22-2020 End: 05-22-2020 Subsequent hospital visit by physician Jacquie Asencio Work Phone: [facility] Comment on above: Type 2 diabetes makeda itus without complication, without long- term current use of insulin (HCC); Dementia without behavioral disturbance, unspecified dementia type (HCC); Confusion Start: 04-27-2020 End: 04-27-2020 Subsequent hospital visit by physician Gorge Colon Work Phone: [phone] [facility] Comment on above: Type 2 diabetes makeda itus without complication, without long- term current use of insulin (HCC); Dizziness; 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 Start: 04-24-2020 End: 04-24-2020 Subsequent hospital visit by physician Gorge Colon Work Phone: [facility] Comment on above: Dizziness Start: 04-24-2020 End: 04-24-2020 Subsequent hospital visit by physician Gorge Colon Work Phone: [facility] Comment on above: Coronary artery dise ase involving andreafski coronary artery 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 Start: 04-27-2017 End: 04-28-2017 Ambulatory KOKI LORA([facility]) [facility] Start: 04-27-2017 End: 04-27-2017 Ambulatory KOKI LORA([facility]) [facility] Procedures Date Procedure Procedure Detail Performing Clinician Start: 07-21-2025 X-ray of chest anteroposterior view JAEL ASHLEY DO Start: 07-19-2025 CT cervical spine without contrast JAEL ASHLEY DO Start: 07-19-2025 CT of brain without contrast JAEL EVELINA GENAO DO Start: 07-19-2025 Electrocardiographic procedure JAEL ASHLEY DO Start: 07-19-2025 X-ray of chest anteroposterior view JAEL ASHLEY DO Start: 10-22-2024 CT of brain without contrast MONTRELL SERVIN MD Work Phone: Start: 10-22-2024 X-ray of chest anteroposterior view MONTRELL EDWARD MD Work Phone: Start: 10-22-2024 Electrocardiographic procedure MONTRELL MARTÍNEZ MD Work Phone: Start: 12-22-2023 CT of brain without contrast MD MONTRELL EDWARD Work Phone: Start: 12-22-2023 X-ray of chest anteroposterior view MD MONTRELL EDWARD Work Phone: Start: 06-05-2023 Aftercare [facility] Start: 06-02-2023 Barium swallow [facility] Work Phone: Start: 06-02-2023 Radiography of gastrointestinal tract [facility] Work Phone: Start: 06-02-2023 Echocardiography [facility] Work Phone: Start: 06-01-2023 Ultrasonography of bilateral kidneys [facility] Work Phone: Start: 05-31-2023 X-ray of chest anteroposterior view [facility] Work Phone: Start: 05-31-2023 Electrocardiographic procedure [facility] Work Phone: Start: 09-01-2022 CT of abdomen [...] Phone: Start: 05-22-2020 Cyanocobalamin vitamin b-12 Jacquie love Work Phone: Start: 05-22-2020 GLOMERULAR FILTRATION RATE Jacquie nix Work Phone: Start: 05-22-2020 Hemoglobin A1c/Hemoglobin.total in Blood Jacquie Asencio Work Phone: Start: 05-22-2020 Lipid panel Jacquie Asencio Work Phone: Start: 05-22-2020 Adult depression screening assessment Jacquie Asencio Start: 05-22-2020 Lipid 1996 panel - Serum or Plasma Angelo Sameer Start: 05-19-2020 3 comp foot exam completed Angelo Ames ad Start: 04-27-2020 Echo tthrc r-t 2d w/wom-mode compl spec&colr d Tigistsuzanna Colon Work Phone: Start: 03-25-2020 Adult depression screening assessment Gorge Colon Start: 05-27-2019 Ophthalmic examination and evaluation Gorge Colon Start: 11-19-2018 Lipid 1996 panel - Serum or Plasma Gorge Westbrookib Start: 08-16-2017 3 comp foot exam completed Gorge Colon Plan of Treatment Date Care Activity Detail Author Start: 12-15-2027 Diphtheria + pertussis + tetanus vaccine (product) [facility] Start: 07-28-2025 Admission to establishment AL/[place]/X-[id number] - AT Y OUR DOOR: [facility]ING [facility] Start: 07-19-[address] [facility] Start: 07-19-2025 Hospital admission, emergency, from emergency room [facility] Start: 05-22-2025 Fasting lipid profile LIPID SCREENING [facility] Start: 10-22-2024 Hospital admission, emergency, from emergency room [facility] Start: 10-22-[address] [facility] Start: 04-09-2024 Colonoscopy COLONOSCOPY 10 YR [facility] Start: 04-09-2024 Screening for malignant neoplasm of colon [facility] Start: 12-22-2023 Hospital admission, emergency, from emergency room [facility] Start: 12-22-[address] [facility] Start: 12-22-[address] [facility] Start: 11-19-2023 Fasting lipid profile LIPID SCREENING [facility] Start: 06-02-[address] [facility] Start: 06-02-2023 [facility] Start: 06-01-[address] [facility] Start: 06-01-[address] [facility] Start: 06-01-2023 Hospital admission, emergency, from emergency room [facility] Start: 06-01-[address] [facility] Start: 09-01-2022 [facility] Start: 09-01-[address] [facility] Start: 06-13-2022 Renal function test NOS RENAL PROFILE [facility] Start: 06-10-2022 Injection of vitamin B12 B12 [facility] Start: 06-04-2022 Glaucoma screening GLAUCOMA/EYE EXAM AGE 65+ [facility] Start: 05-22-2022 Injection of vitamin B12 B12 [facility] Start: 02-09-2022 End: 02-09-2022 Patient encounter procedure 02/09/2022 [facility] Start: 06-19-2021 Adult depression screening assessment DEPRESSION SCREENING [facility] Start: 06-19-2021 Depression screening using PHQ-9 (Patient Health Questionnaire 9) score DEPRESSION SCREENING [facility] Start: 06-19-2021 Nephropathy screening MICROALBUMINURIA [facility] Start: 06-19-2021 Urine screening for protein MICROALBUMINURIA [facility] Start: 06-16-2021 Influenza vaccination given INFLUENZA VACCINE (#1) [facility] Start: 06-04-2021 Ophthalmic examination and evaluation OPHTHALMOLOGY EXAM [facility] Start: 05-22-2021 Adult depression screening assessment DEPRESSION SCREENING [facility] Start: 05-22-2021 Lipid panel LIPIDS [facility] Start: 05-22-2021 Renal function test NOS RENAL PROFILE [facility] Start: 05-19-2021 Diabetic foot examination FOOT EXAM [facility] Start: 05-06-2021 Adult depression screening assessment DEPRESSION SCREENING [facility] Start: 03-25-2021 Adult depression screening assessment DEPRESSION SCREENING [facility] Start: 09-18-2020 End: 09-18-2020 Office Visit 09/18/2020 Office Visit Family Medicine Jacuqie Asencio PA-C [address] [place] [address] [phone] [facility] [address] ADULT Start: 09-09-2020 End: 09-09-2020 Office Visit [facility] Start: 08-22-2020 HbA1c (Bld) [Mass fraction] HEMOGLOBIN A1C [facility] Start: 08-22-2020 Hemoglobin A1c measurement HEMOGLOBIN A1C [facility] [facility] Start: 08-10-2020 End: 08-10-2020 Office Visit 08/10/2020 Office Visit Cardiology [facility] [place] Start: 08-07-2020 End: 08-07-2020 Appointment 08/07/2020 Appointment Sleep Medicine Angelo Estrella MD [address], [place] [address] [phone] [facility] Start: 06-27-2020 End: 06-27-2020 Appointment 06/27/2020 Appointment Sleep Medicine Angelo Estrella MD [address], [place] [address] [phone] [facility] Start: 06-25-2020 End: 06-25-[address] [facility] Start: 06-19-2020 End: 06-19-2020 Office Visit 06/19/2020 Office Visit Family Medicine Jacquie Asencio PA-C [address] [place] [address] [phone] [facility] [address] ADULT Start: 06-16-2020 Influenza vaccination given INFLUENZA VACCINE (#1) [facility] Start: 05-27-2020 Ophthalmic examination and evaluation OPHTHALMOLOGY EXAM [facility] Start: 05-16-2020 Nephropathy screening MICROALBUMINURIA [facility] Start: 05-06-2020 End: 05-06-2020 Office Visit [facility] [address] ADULT Start: 04-27-2020 End: 04-27-2020 Appointment 04/27/2020 Appointment Heart and Vascular Diagnostics Gorge Colon MD [address] [place] [address] [phone] [id number] [facility] HEART AND VASCULAR DIAGNOSTIC ECHO Start: 11-19-2019 Lipid panel LIPIDS [facility] Start: 11-19-2019 Renal function test NOS RENAL PROFILE [facility] Start: 10-26-2019 Injection of vitamin B12 B12 [facility] Start: 08-16-2019 Glaucoma screening GLAUCOMA/EYE EXAM AGE 65+ [facility] Start: 08-16-2019 HbA1c (Bld) [Mass fraction] HEMOGLOBIN A1C [facility] Start: 08-16-2018 Diabetic foot examination FOOT EXAM [facility] Start: 07-28-2018 Fall risk assessment FALL RISK [facility] Start: 07-28-2018 Pneumococcal polysaccharide vaccine (product) PNEUMONIA VACCINE (PCV13 PPSV23) (2 of 2 - PPSV23) [facility] Start: 1992 Screening for malignant neoplasm of colon [facility] Start: 1992 Zoster vaccine hzv live for subcutaneous use ZOSTER (SHINGLES) VACCINE (1 of 2) [facility] Start: 1960 ANNUAL WELLNESS VISIT ANNUAL WELLNESS VISIT [facility] End: 06-10-2020 [place] [place] Lab Routine Altered mental status, unspecified altered mental status type Obstructive sleep apnea 1 Occurrences starting 06/10/2020 until 06/10/2020 [facility] Comment on above: 1 Occurrences starting 06/10/2020 until 06/10/2020 [place] [facility] [place] Lab Routine Altered mental status, unspecified altered mental status type Obstructive sleep apnea 06/10/2020 9:47 AM EDT [facility] Anion gap measurement [facility] Basic metabolic 1997 panel - Serum or Plasma [facility] Basophil percent differential count [facility] Blood chemistry [facility] Calcium measurement [facility] Carbon dioxide, tota l [Moles/volume] in Serum or Plasma [facility] Chloride [Moles/volu me] in Serum or Plasma [facility] Comprehensive metabo lic 1999 panel - Serum or Plasma [facility] Creatinine [Mass/vol ume] in Serum or Plasma [facility] End: 06-25-2020 EEG EEG Neurology Routine Altered mental status, unspecified altered mental status type Obstructive sleep apnea 1 Occurrences starting 06/25/2020 until 06/25/2020 [facility] Comment on above: 1 Occurrences starting 06/25/2020 until 06/25/2020 Eosinophil percent differential count [facility] Eosinophils [#/volum e] in Blood [facility] Ferritin [Mass/volum e] in Serum or Plasma [facility] Glomerular filtratio n rate/1.73 sq M.predicted among blacks [Volume Rate/Area] in Serum, Plasma or Blood by Creatinine-based formula (CKD-EPI) [facility] Glomerular filtratio n rate/1.73 sq M.predicted among non-blacks [Volume Rate/Area] in Serum, Plasma or Blood by Creatinine-based formula (CKD-EPI) [facility] Glucose [Mass/volume ] in Serum or Plasma [facility] Hematocrit [Volume F raction] of Blood [facility] Hemoglobin [Mass/vol ume] in Blood [facility] Hemoglobin A1c [Mass /volume] in Blood [facility] End: 04-24-2020 Holter Monitor complete <48 hours Order Holter Monitor complete <48 hours Order Cardiac Services Routine Dizziness 1 Occurrences starting 04/24/2020 until 04/24/2020 [facility] Comment on above: 1 Occurrences starting 04/24/2020 until 04/24/2020 Holter Monitor compl ete <48 hours Order Holter Monitor complete <48 hours Order Cardiac Services Routine Dizziness 04/24/2020 1:24 PM EDT [facility] Iron [Mass/volume] i n Serum or Plasma [facility] Iron binding capacit y [Mass/volume] in Serum or Plasma [facility] Iron binding capacity.unsaturated [Mass/volume] in Serum or Plasma [facility] Iron saturation [Mas s Fraction] in Serum or Plasma [facility] Leukocytes [#/volume ] in Blood [facility] Lymphocyte count [facility] Lymphocyte percent differential count [facility] Mean corpuscular hem oglobin concentration determination [facility] Mean corpuscular hem oglobin determination [facility] Monocyte count [facility] Monocyte percent differential count [facility] Neutrophil count [facility] End: 04-24-2020 Nuclear Stress Test - Pharmacological Nuclear Stress Test - Pharmacological Cardiac Services Routine 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 1 Occurrences starting 04/24/2020 until 04/24/2020 [facility] Comment on above: 1 Occurrences starting 04/24/2020 until 04/24/2020 Nuclear Stress Test - Pharmacological Nuclear Stress Test - Pharmacological Cardiac Services Routine 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 04/24/2020 1:37 PM EDT [facility] Patient Education [facility] Work Phone: Patient referral [facility] Work Phone: Platelet mean volume determination [facility] Platelets [#/volume] in Blood [facility] End: 08-07-2020 Polysomnography 4 or more parameters with CPAP Polysomnography 4 or more parameters with CPAP Sleep Center Routine Obstructive sleep apnea 1 Occurrences starting 08/07/2020 until 08/07/2020 [facility] Comment on above: 1 Occurrences starting 08/07/2020 until 08/07/2020 Potassium [Moles/vol ume] in Serum or Plasma [facility] Procalcitonin [Mass/ volume] in Serum or Plasma [facility] Red blood cell count [facility] Red cell distributio n width determination [facility] End: 08-03-2020 SARS-COV-2, qPCR ([facility]) SARS-COV-2, qPCR ([facility]) Microbiology Routine One Time for 1 Occurrences starting 08/03/2020 until 08/03/2020 [facility] Comment on above: One Time for 1 Occurrences starting 07/16 until 08/03/2020 SARS-COV-2, qPCR ( [facility]) SARS-COV-2, qPCR ([facility]) Microbiology Routine 08/03/2020 1:57 PM EDT [facility] Segmented neutrophil count, blood [facility] Sodium [Moles/volume ] in Serum or Plasma [facility] End: 06-10-2020 TDP (Vitamin B1, whole blood) TDP (Vitamin B1, whole blood) Lab Routine Altered mental status, unspecified altered mental status type Obstructive sleep apnea 1 Occurrences starting 06/10/2020 until 06/10/2020 [facility] Comment on above: 1 Occurrences starting 06/10/2020 until 06/10/2020 TDP (Vitamin B1, who le blood) TDP (Vitamin B1, whole blood) Lab Routine Altered mental status, unspecified altered mental status type Obstructive sleep apnea 06/10/2020 9:47 AM EDT [facility] Urea nitrogen [Mass/ volume] in Serum or Plasma [facility] Urea nitrogen/Creati nine [Mass Ratio] in Serum or Plasma [facility] End: 05-22-2020 Urine culture and sensitivity Urine culture and sensitivity Microbiology Routine Confusion 1 Occurrences starting 05/22/2020 until 05/22/2020 [facility] Comment on above: 1 Occurrences starting 05/22/2020 until 05/22/2020 Urine culture and sensitivity Urine culture and sensitivity Microbiology Routine Confusion 05/22/2020 4:08 PM EDT [facility] End: 06-10-2020 Vitamin E Vitamin E Lab Routine Altered mental status, unspecified altered mental status type Obstructive sleep apnea 1 Occurrences starting 06/10/2020 until 06/10/2020 [facility] Comment on above: 1 Occurrences starting 06/10/2020 until 06/10/2020 Vitamin E Vitamin E Lab Ro utine Altered mental status, unspecified altered mental status type Obstructive sleep apnea 06/10/2020 9:47 AM EDT [facility] Immunizations Immunization Date Immunization Notes Care Provider Trey omalley 06-05-2025 Seasonal trivalent influenza vaccine, adjuvanted, preservative free JAEL ASHLEY DO [facility] 07-17-2024 COVID-19, mRNA, LNP- S, PF,50mcg/0.5 mL 12yrUP MONTRELL EDWARD MD Work Phone: [facility] 07-17-2024 SARS-COV-2 (COVID-19 ) vaccine, mRNA, spike protein, LNP, bivalent, preservative free, 50 mcg/0.5 mL dose Xiao Cai [place] [facility] 07-17-2024 Seasonal trivalent influenza vaccine, adjuvanted, preservative free MONTRELL EDWARD MD Work Phone: [facility] 08-09-2023 COVID-19 mRNA 12yr Up,Mt-sucrose 3mcg/0.3 MONTRELL EDWARD MD Work Phone: [facility] 08-09-2023 influenza, injectabl e, quadrivalent, preservative free MONTRELL EDWARD MD Work Phone: [facility] 03-02-2022 COVID-19 VACCINE (Pfizer-BioNtech) [facility] Work Phone: [facility] 08-16-2021 COVID-19 VACCINE (Pfizer-BioNtech) [facility] Work Phone: [facility] 08-16-2021 influenza, injectabl e, quadrivalent, preservative free [facility] Work Phone: [facility] 11-16-2020 COVID-19 VACCINE (Pfizer-BioNtech) [facility] Work Phone: [facility] 10-26-2020 COVID-19 VACCINE (Pfizer-BioNtech) [facility] Work Phone: [facility] 07-10-2020 Seasonal, quadrivale nt, recombinant, injectable influenza vaccine, [facility]ative [facility] 05-22-2020 HEMOGLOBIN A1C [facility] 08-04-2019 influenza, high dose seasonal, preservative-free XIAO ESC Work Phone: [facility] 08-04-2019 influenza, seasonal, injectable [facility] 08-04-2019 pneumococcal polysaccharide vaccine, 23 valent [facility] 08-04-2019 influenza virus vacc ine, unspecified formulation Nagelo Sameer [facility] 05-16-2019 HEMOGLOBIN A1C [facility] 07-31-2018 influenza virus vacc ine, unspecified formulation [facility] 12-14-2017 tetanus toxoid, redu tiana diphtheria toxoid, and acellular pertussis vaccine, adsorbed [facility] 07-28-2017 influenza, seasonal, injectable [facility] 07-24-2015 influenza, high dose seasonal, preservative-free XIAO [facility] Work Phone: [facility] 07-24-2015 influenza, seasonal, injectable [facility] 07-24-2015 pneumococcal vaccine , unspecified formulation [facility] 10-01-2009 novel influenza-H1N1 -09, preservative-free, injectable [facility] Payers Date Payer Category Payer Unknown [id number] 2019 Unknown [id number] 2007 Medicare [id number] 2007 Medicare [id number] 2007 Medicare [id number] 1940 Unknown [id number] 2.16.84 [id number] Medicare [id number] Medicare [id number] Unknown [id number] Unknown OTHER COMMERCIAL [id number] Unknown [id number] 2.16.8 [id number] Unknown [id number] 2.16.8 [id number] Unknown [id number] 2.16.8 [id number] Unknown [id number] 2.16.8 [id number] Unknown [id number] 2.16.8 [id number] Unknown [id number] 2.16.8 [id number] Unknown [id number] 2.16.8 [id number] Social History Date Type Detail Facility Start: 04-08-2020 End: 07-20-2025 Tobacco smoking status NHIS Former smoker [facility] Start: 02-07-2012 End: 04-08-2020 Cigarettes smoked current (pack per day) - Reported [facility] Start: 02-07-2012 End: 04-08-2020 Tobacco use and exposure Never used [facility] Start: 04-08-2020 End: 02-09-2021 Alcohol intake Current non-drinker of alcohol (finding) [facility] Start: 02-07-2012 Tobacco Comment quit 1964 [facility] Start: 1940 Sex Assigned At Not on file [facility] Exposure to SARS-CoV -2 (event) Not sure [facility] Start: 1940 Sex Assigned At Male [facility] Start: 09-01-2022 End: 10-23-2024 Tobacco smoking status NHIS Never smoked tobacco (finding) [facility] Start: 09-01-[address] [facility] Start: 09-01-[address] [facility] Start: 10-24-2024 End: 10-28-2024 Sex Male (finding) [facility] Gender Identity Cisgender/Not transgender (finding) [facility] Sexual Orientation Heterosexual (finding) [facility] Start: 07-19-2025 Social Determinants of Health Social Determinants of Health [facility] Work Phone: Medical Equipment Procedure Code Equipment Code Equipment Origin al Text Equipment Identifier Dates Implant ([id number]) [id number] Start: 03-12-2020 Test once daily Diagnosis: Type 2 DM 250.00 (ICD-10 E11.9) Length of need lifetime. Katelynn beth. [id number] Start: 03-12-2020 Goals Date Patient Goal Desired Activity /State Functional Status Date Assessment Result Facility 07-22-2025 Functional status Independent;[facility] Work Phone: 07-21-2025 Functional status Oral Expressio n Ability No Impairment [place] [facility] Work Phone: 10-24-2024 Functional status Independent [place] [facility] Work Phone: 10-24-2024 Functional status Barriers to Le arning Age related [place] [facility] Work Phone: 10-23-2024 Functional status Oral Expressio n Ability No Impairment [facility] Work Phone: 12-24-2023 Functional status [facility] Work Phone: 12-22-2023 Functional status Oral Expressio n Ability No Impairment [facility] Work Phone: 06-02-2023 Functional status Independent;1 person as sist [facility] Work Phone: 06-01-2023 Functional status Barriers to Le arning Age related [place] [facility] Work Phone: 06-01-2023 Functional status Oral Expressio n Ability No Impairment [facility] Work Phone: Mental Status Date Assessment Result Facility 07-22-2025 Cognitive function Name [facility] Work Phone: 07-21-2025 Cognitive function Comprehension Ability No Impairment [facility] Work Phone: 10-24-2024 Cognitive function Level Of Cons ciousness Awake;Alert;Appropriate [facility] Work Phone: 10-23-2024 Cognitive function Name [facility] Work Phone: 10-23-2024 Cognitive function Comprehension Ability No Impairment [facility] Work Phone: 12-24-2023 Cognitive function Level Of Cons ciousness Awake;Alert;Appropriate;Follow s Commands [facility] Work Phone: 12-24-2023 Cognitive function Arousable To Name [facility] Work Phone: 12-23-2023 Cognitive function Memory Description Int act [facility] Work Phone: 12-22-2023 Cognitive function Comprehension Ability Mild Impairment [facility] Work Phone: 06-02-2023 Cognitive function Level Of Cons ciousness Awake;Alert;Appropriate;Follow s Commands [facility] Work Phone: 06-02-2023 Cognitive function Arousable To Name [facility] Work Phone: 06-01-2023 Cognitive function Memory Description Int act [facility] Work Phone: 06-01-2023 Cognitive function Comprehension Ability No Impairment [facility] Work Phone: 09-01-2022 Cognitive function Level Of Cons ciousness Awake;Alert;Appropriate;Follow s Commands [facility] Work Phone: Clinical Notes 06-13-2021 to 07-28-2025 [...] (12/23/23): 1.8 BNP (07/21/25): 261 TSH (07/20/25): 0.840038 TSH (10/22/24): 0.083996 TSH (10/04/23): 0.236990 Recent Imaging Diagnostic radiology report 07/21/25 Diagnostic [...] (12/23/23): 1.8 BNP (07/21/25): 261 TSH (07/20/25): 0.523299 TSH (10/22/24): 0.742264 TSH (10/04/23): 0.964163 Recent Imaging Diagnostic radiology report 07/21/25 Diagnostic radiology report 07/19/25 Cardiac Testing EKG report 07/19/25 [email or web address] Not available 07/24/2025 11:49:43 [place] [facility] 10-07-2025 NotePATIENT:WILEY MEEK [id number] LOCATION:ICU I.D.#: [id number] : 1940 AGE: SEX:M DISCHARGED: 07/22/25 ORDERED BY:BRYANNA GAFFNEY MD M I C R O B I O L O G Y Patient: WILEY MEEK [id number] Location: [facility] Aount: [id number] : 1940 Age: 85 Sex M Lab NumbEr [id number] Requested by: BRYANNA GAFFNEY Admitdate: 07/19/25 Source: [...] in aerobic and anaerobic bottle. 07/25/2025 06:45 [facility]10-07-2025 NotePATIENT:WILEY MEEK [id number] LOCATION:ICU I.D.#: [id number] : 1940 AGE: SEX:M DISCHARGED: 07/22/25 ORDERED BY:BRYANNA GAFFNEY MD O B I O L O G Y Patient: WILEY MEEK [id number] Location: [facility] INT Aount: [id number] : 1940 Age: 85 Sex M Lab NumbEr [id number] Requested by: BRYANNA GAFFNEY Admitdate: 07/19/25 Source: [...] in aerobic and anaerobic bottle. 07/25/2025 06:45 [facility]10-07-2025 NotePATIENT:WILEY MEEK [id number] LOCATION:ICU I.D.#: [id number] : 1940 AGE: SEX:M DISCHARGED: 07/22/25 ORDERED BY:BRYANNA GAFFNEY MD R O B I O L O G Y Patient: WILEY MEEK [id number] Location: [facility] INT Aount: [id number] : 1940 Age: 85 Sex M Lab NumbEr [id number] Requested by: BRYANNA GAFFNEY Admitdate: 07/19/25 Source: BLOOD Collected: 07/19/25 12:20 Site: [facility] Received : 07/19/25 12:39 AVIVA [place] E N T S LAB.PORT; Does the Patient have a central line to draw blood from?; N; RUBEN.[email or web address]; Ruben Site; blood Culture, Blood FINAL 07/25/25 06:45 07/21/25 No growth after 48 hours incubation in aerobic and anaerobic bottle. 07/21/2025 06:13 07/25/25 No growth after 5 days incubation in aerobic and anaerobic bottle. 07/25/2025 06:45 [facility]2025 NotePATIENT:WILEY MEEK [id number] LOCATION:ICU I.D.#: [id number] : 1940 AGE: SEX:M DISCHARGED: 07/22/25 ORDERED BY:BRYANNA GAFFNEY MD M I C R O B I O L O G Y Patient: WILEY MEEK [id number] Location: [facility] INT Aount: [id number] : 1940 Age: 85 Sex M Lab NumbEr [id number] Requested by: BRYANNA GAFFNEY Admitdate: 07/19/25 Source: BLOOD Collected: 07/19/25 12:30 Site: MEMO Received : 07/19/25 12:39 AVIVA [place] M E N T S LAB.PORT; Does the Patient have a central line to draw blood from?; N; RUBEN.SITE1; Ruben Site; blood Culture, Blood FINAL 07/25/25 06:45 07/21/25 No growth after 48 hours incubation in aerobic and anaerobic bottle. 07/21/2025 06:13 07/25/25 No growth after 5 days incubation in aerobic and anaerobic bottle. 07/25/2025 06:45 [facility]10-07-2025 Discharge summary Author LINDSEY CAVAZOS [facility] Note Date/Time July 22, 2025 10 :49am [facility] [address] [place] [id number] HEALTH INFORMATION MANAGEMENT DISCHARGE SUMMARY : [id number] Signed Patient: WILEY MEEK Acct:[id number] MRUN: [id number] : 1940 Sex: M Loc: ICU AD [...] eval and treatment. Consult also placed to social worker psychiatric/case management to assist with discharge planning and disposition -plan is for patient to be discharged to his halfway facility 8. GERD - Patient is on PPI, continued 9. DVT prophylaxis - [facility] Treatment: 07/22/25 05:07/22/25 05:25 Laboratory Results - last 24 hr 07/22/25 05:25: WBC 4.4, RBC 3.42 L, Hgb 11.0 L, Hct 33.3 L, MCV 97.4 H, MCH 32.2 H, MCHC 33.0, RDW 14.3, Plt Count 254, MPV 9.1, Neut % (Auto) 56.1, Lymph %(Auto) 28.5, [place] % (Auto) 9.1, Eos % (Auto) 5.9 [...] 07/22/25 23:59 23:59 23:59 23:59 Intake Total 4143 349 4113 360 Output Total 250 1725 1025 Balance 1300 546 -845 -665 Weight 191 lb 185 lb 14.4 oz 184 lb 4.8 oz 186 lb See radiology reports in electronic medical record. - Problems (1) Essential hypertension Status: Acute Priority: Medium Current Visit: Yes (2) COVID-19 virus infection Status: Acute Current Visit: No - Discharge Information Discharge Diagnosis:: COVID-19 pneumonia Disposition: 04 [facility] Condition: Good Plan of Treatment: [...] Billing Provider:: LINDSEY CAVAZOS Common Visit Codes: 18434-TLA/OBS DISCH DAY <30MIN Electronically Generated By:LINDSEY CAVAZOS MD Generated Date/Time: 07/22/25 1048 Electronically Signed By: <Electronically signed by LINDSEY CAVAZOS MD> 07/22/25 1049 Co Signed Electronically By: Co Signed Date/Time: CC: JAEL ASHLEY DO [facility] Work Phone: 1(660) 829-551010-07-2025 Progress note Author LINDSEY [facility] Note Date/Time July 22, 2025 10 :39am [facility] [address] [place] [address] HEALTH INFORMATION MANAGEMENT PROGRESS NOTE : [phone] Signed Patient: WILEY MEEK Acct:[id number] MRUN: [id number] : 1940 Sex: M Loc: ICU AD [...] Intake Total 300 740 360 Output Total 5889 974 2491 Balance -800 115 -665 Weight 184 lb 4.8 oz 186 lb Intake: IV Intake 300 Rocephin 1 Gram Injection 50 1 gm In Sodium Chloride 0.9 % 50 ml 50 ml @ 100 mls/hr IVPB Q24H OSVALDO Rx#: [id number] Zithromax 500 mg 250 Injection 500 mg In Sodium Chloride 0.9 % 250 ml 250 ml @ 250 mls/hr IVPB Q24H [facility] Rx#: [id number] Intake ml 300 440 360 Output: Output ml 1692 771 8549 Urine 2809 093 0124 Other: Output Urine Nonnumeric/ Comment Urine x1, [...] L, MCV 97.4 H, MCH 32.4 H, [place]% (Auto) 12.6 H, Eos % (Auto) 4.0 [...] eval and treatment. Consult also placed to social worker psychiatric/case management to assist with discharge planning and disposition -plan is for patient to be discharged to his halfway facility 8. GERD - Patient is on [...] Signed Electronically By: Co Signed Date/Time: CC: [facility] Work Phone: 1(586) 466-669110-07-2025 Progress note Author LINDSEY CAVAZOS [facility] Note Date/Time July 22, 2025 10 :39am [facility] [address] [place] [id number] HEALTH INFORMATION MANAGEMENT PROGRESS NOTE : [phone] Signed Patient: WILEY MEEK Acct:[id number] MRUN: [id number] : 1940 Sex: M Loc: ICU AD [...] Intake Total 300 740 360 Output Total 4150 826 4379 Balance -800 115 -665 Weight 184 lb 4.8 oz 186 lb Intake: IV Intake 300 Rocephin 1 Gram Injection 50 1 gm In Sodium Chloride 0.9 % 50 ml 50 ml @ 100 mls/hr IVPB Q24H [facility] Rx#: [id number] Zithromax 500 mg 250 Injection 500 mg In Sodium Chloride 0.9 % 250 ml 250 ml @ 250 mls/hr IVPB Q24H [facility] Rx#: [id number] Intake ml 300 440 360 Output: Output ml 7979 844 8977 Urine 7265 173 2583 Other: Output Urine Nonnumeric/ Comment Urine x1, [...] L, MCV 97.4 H, MCH 32.4 H, [place]% (Auto) 12.6 H, Eos % (Auto) 4.0 [...] eval and treatment. Consult also placed to social worker psychiatric/case management to assist with discharge planning and disposition -plan is for patient to be discharged to his halfway facility 8. GERD - Patient is on [...] Signed Electronically By: Co Signed Date/Time: CC: [facility] Work Phone: 1(444) 283-920410-07-2025 [place] [address] HEALTH INFORMATION MANAGEMENT DISCHARGE SUMMARY : [phone] Signed Patient: WILEY MEEK Acct:[id number] MRUN: [id number] : 1940 Sex: M Loc: ICU ADM [...] eval and treatment. Consult also placed to social worker psychiatric/case management to assist with discharge planning and disposition -plan is for patient to be discharged to his halfway facility 8. GERD - Patient is on PPI, continued 9. DVT prophylaxis - [facility] Treatment: 07/22/25 05:25 07/22/25 05:25 Laboratory Results - last 24 hr 07/22/25 05:25: WBC 4.4, RBC 3.42 L, Hgb 11.0 L, Hct 33.3 L, MCV 97.4 H, MCH 32.2 H, MCHC 33.0, RDW 14.3, Plt Count 254, MPV 9.1, Neut % (Auto) 56.1, Lymph % (Auto) 28.5, [place] % (Auto) 9.1, Eos % (Auto) 5.9 [...] 07/22/25 23:59 23:59 23:59 23:59 Intake Total 6313 818 7809 360 Output Total 250 1725 1025 Balance 1300 779 -825 -665 Weight 191 lb 185 lb 14.4 oz 184 lb 4.8 oz 186 lb See radiology reports in electronic medical record. - Problems (1) Essential hypertension Status: Acute Priority: Medium Current Visit: Yes (2) COVID-19 virus infection Status: Acute Current Visit: No - Discharge Information Discharge Diagnosis:: COVID-19 pneumonia Disposition: 04 [facility] Condition: Good Plan of Treatment: [...] Billing Provider:: LINDSEY CAVAZOS Common Visit Codes: 62300-BMV/OBS DISCH DAY <30MIN Electronically Generated By: LINDSEY CAVAZOS MD Generated Date/Time: 07/22/251047 Electronically Signed By: 07/22/251048 Co Signed Electronically By: Co Signed Date/Time: CC: JAEL ASHLEY [facility]10-07-20[place] [address] HEALTH INFORMATION MANAGEMENT DISCHARGE SUMMARY : [phone] Signed Patient: WILEY MEEK Acct:[id number] MRUN: [id number] : 1940 Sex: M Loc: ICU AD [...] eval and treatment. Consult also placed to social worker psychiatric/case management toassist with discharge planning and disposition -plan is for patient to be discharged to his halfway facility 8. GERD - Patient is on PPI, continued 9. DVT prophylaxis - [facility] Treatment: 07/22/25 05:25 07/22/25 05:25 Laboratory Results - last 24 hr 07/22/25 05:25: WBC 4.4, RBC 3.42 L, Hgb 11.0 L, Hct 33.3 L, MCV 97.4 H, MCH 32.2 H, MCHC 33.0, RDW14.3, Plt Count 254, MPV 9.1, Neut % (Auto) 56.1, Lymph %(Auto) 28.5, [place] % (Auto) 9.1, Eos % (Auto) 5.9 [...] 07/22/25 23:59 23:59 23:59 23:59 Intake Total 9662 822 4255 360 Output Total 250 1725 1025 Balance 1300 250 -385 665 Weight 191 lb 185 lb 14.4 oz 184 lb 4.8 oz 186 lb See radiology reports in electronic medical record. - Problems (1) Essential hypertension Status: Acute Priority: Medium Current Visit: Yes (2) COVID-19 virus infection Status: Acute Current Visit: No - Discharge Information Discharge Diagnosis:: COVID-19 pneumonia Disposition: 04 [facility] Condition: Good Plan of Treatment: as [...] Billing Provider:: LINDSEY CAVAZOS Common Visit Codes: 27834-FAE/OBS DISCH DAY <30MIN Electronically Generated By:LINDSEY CAVAZOS MD Generated Date/Time: 07/22/25 104 Electronically Signed By: 07/22/25 104 Co Signed Electronically By: Co Signed Date/Time: CC: JAEL ASHLEY DO [facility]10-07-2025 [place] [id number] HEALTH INFORMATION MANAGEMENT PROGRESS NOTE : [phone] Signed Patient: WILEY MEEK Acct:[id number] MRUN: [id number] : 1940 Sex: M Loc: ICU AD [...] Intake Total 300 740 360 Output Total 9365 588 6892 Balance -800 115 -665 Weight 184 lb 4.8 oz 186 lb Intake: IV Intake 300 Rocephin 1 Gram Injection 50 1 gm In Sodium Chloride 0.9 % 50 ml 50 ml @ 100 mls/hr IVPB Q24H [facility] Rx#: [id number] Zithromax 500 mg 250 Injection 500 mg In Sodium Chloride 0.9 % 250 ml 250 ml @ 250 mls/hr IVPB Q24H [facility] Rx#: [id number] Intake ml 300 440 360 Output: Output ml 6163 623 5718 Urine 1365 948 9006 Other: Output Urine Nonnumeric/ Comment Urine x1, [...] A, Est GFR (MDRD) Non-Af 45 A, Sksgsyu590 H, AST 42 H, Alkaline Phosphatase 40 L, Total Protein 5.9 L, Albumin 2.5 L, Albumin/Globulin Ratio 0.7 L 07/21/25 05:17: RBC 3.46 L, Hgb 11.2 L, Hct 33.7 L, MCV 97.4 H, MCH 32.4 H, [place]% (Auto) 12.6 H, Eos % (Auto) 4.0 [...] eval and treatment. Consult also placed to social worker psychiatric/case management toassist with discharge planning and disposition -plan is for patient to be discharged to his halfway facility 8. GERD - Patient is on [...] Signed Electronically By: Co Signed Date/Time: CC: [facility]10-06-2025 Progress note Author LINDSEY CAVAZOS [facility] Note Date/Time July 21, 2025 10 :35am [facility] [address] [place], [place] [id number] HEALTH INFORMATION MANAGEMENT PROGRESS NOTE : [phone] Signed Patient: WILEY MEEK Acct:[id number] MRUN: [id number] : 1940 Sex: M Loc: ICU AD [...] 50 ml @ 100 mls/hr IVPB Q24H [facility] Rx#: [id number] Intake ml 480 300 Output: Output ml [...] 88.9 H, Lymph % (Auto) 4.7 L, [place] % (Auto) 5.2 L, Eos % (Auto) [...] L, MCV 97.4 H, MCH 32.4 H, [place]% (Auto) 12.6 H, Eos % (Auto) 4.0 [...] eval and treatment. Consult also placed to social worker psychiatric/case management to assist with discharge planning and disposition 8. GERD - Patient is on PPI, continued 9. DVT prophylaxis - [place] Lovenox Impressions Chest X-Ray 07/21/25 06:00 IMPRESSION: Unchanged ill-defined opacification seen with left lung base with small left pleural effusion. Visit Coding - VISIT CODING Date of Service: 07/21/25 Billing Provider:: LINDSEY CAVAZOS Common Visit Codes: 89629-UBIGUSUFPF INP/OBS CARE(MOD) Electronically Generated By:LINDSEY CAVAZOS MD Generated Date/Time: 07/21/25 0955 Electronically Signed By: <Electronically signed by LINDSEY CAVAZOS MD> 07/21/25 1035 Co Signed Electronically By: Co Signed Date/Time: CC: [facility] Work Phone: 1(237) 773-612010-06-2025 Progress note Author LINDSEY CAVAZOS [facility] Note Date/Time July 21, 2025 10 :35am [facility] [address] [place] [address] HEALTH INFORMATION MANAGEMENT PROGRESS NOTE : [phone] Signed Patient: WILEY MEEK Acct:[id number] MRUN: [id number] : 1940 Sex: M Loc: ICU AD [...] 50 ml @ 100 mls/hr IVPB Q24H [facility] Rx#: [id number] Intake ml 480 300 Output: Output ml [...] 88.9 H, Lymph % (Auto) 4.7 L, [place] % (Auto) 5.2 L, Eos % (Auto) [...] L, MCV 97.4 H, MCH 32.4 H, [place]% (Auto) 12.6 H, Eos % (Auto) 4.0 [...] eval and treatment. Consult also placed to social worker psychiatric/case management to assist with discharge planning and disposition 8. GERD - Patient is on PPI, continued 9. DVT prophylaxis - [place] Lovenox Impressions Chest X-Ray 07/21/25 06:00 IMPRESSION: Unchanged ill-defined opacification seen with left lung base with small left pleural effusion. Visit Coding - VISIT CODING Date of Service: 07/21/25 Billing Provider:: LINDSEY CAVAZOS Common Visit Codes: 89789-VFKCLZTURA INP/OBS CARE(MOD) Electronically Generated By:LINDSEY CAVAZOS MD Generated Date/Time: 07/21/25 0955 Electronically Signed By: <Electronically signed by LINDSEY CAVAZOS MD> 07/21/25 1035 Co Signed Electronically By: Co Signed Date/Time: CC: [facility] Work Phone: 1(434) 402-526410-06-[address] [address] HEALTH INFORMATION MANAGEMENT PROGRESS NOTE : [phone] Signed Patient: WILEY MEEK Acct:[id number] MRUN: [id number] : 1940 Sex: M Loc: ICU AD [...] 50 ml @ 100 mls/hr IVPB Q24H [facility] Rx#: [id number] Intake ml 480 300 Output: Output ml [...] A, Est GFR (MDRD) Non-Af 45 A, Tdpnpmh676 H, AST 55 H, Alkaline Phosphatase 52 L, Albumin 3.3 L, Albumin/Globulin Ratio 0.9 L 07/19/25 11:15: RBC 3.91 L, MCV 96.7 H, MCH 32.0 H, Neut % (Auto) 88.9 H, Lymph % (Auto) 4.7 L, [place] % (Auto) 5.2 L, Eos % (Auto) [...] A, Est GFR (MDRD) Non-Af 45 A, Idiallq520 H, AST 42 H, Alkaline Phosphatase 40 L, Total Protein 5.9 L, Albumin 2.5 L, Albumin/Globulin Ratio 0.7 L 07/21/25 05:17: RBC 3.46 L, Hgb 11.2 L, Hct 33.7 L, MCV 97.4 H, MCH 32.4 H, [place]% (Auto) 12.6 H, Eos % (Auto) 4.0 [...] eval and treatment. Consult also placed to social worker psychiatric/case management toassist with discharge planning and disposition 8. GERD - Patient is on PPI, continued 9. DVT prophylaxis - [place] Lovenox Impressions Chest X-Ray 07/21/25 06:00 IMPRESSION: Unchanged ill-defined opacification seen with left lung base with small left pleural effusion. Visit Coding - VISIT CODING Date of Service: 07/21/25 Billing Provider:: LINDSEY CAVAZOS Common Visit Codes: 61853-[id number] INP/OBS CARE(MOD) Electronically Generated By:LINDSEY CAVAZOS MD Generated Date/Time: 07/21/25 0955 Electronically Signed By: 07/21/25 1035 Co Signed Electronically By: Co Signed Date/Time: CC: [facility]10-06-2025 Radiology Diagnostic study note [facility] RADIOLOGY [facility] [place] [address] DIAGNOSTIC RADIOLOGY REPORT: [id number], Signed. 2 Patient: WILEY MEEK : 1940, age 85 MR#: [id number] Acct: [id number] - EXAMINATION: ONE XRAY VIEW OF THE [...] 07/21/25620 CC: RL MARTINES MD; JAEL ASHLEY [facility] Work Phone: [phone] 440-744410-05-2025 Progress note Author RL MARTINES [facility] Note Date/Time July 20, 2025 8: 29pm [facility] [address] [place] [address] HEALTH INFORMATION MANAGEMENT PROGRESS NOTE : [phone] Signed Patient: WILEY MEEK Acct:[id number] MRUN: [id number] : 1940 Sex: M Loc: ICU AD [...] moments where he thinks he is at [facility]. He was able to tellme that his [...] Diminished at bases). No: Exibits Shortness of [place]ix[place], Pursed Lip Breathing, Use of Accessory Muscles, Retracting Cardiovascular: Yes: Regular rate, Normal S2, Normal S1, No murmurs, Contract Administration Coordinator Rhythm (Sinus Rhythm). No: Gallops, Rubs, Ectopy [...] @ 100 mls/hr IVPB STAT [facility] Rx#: [id number] Sodium Chloride 0.9 % 1000 1000 ml 1,000 ml @ 999 mls/hr IV .Q1H1M [facility] Rx#: [id number] Zithromax 500 mg 250 Injection 500 mg In Sodium Chloride 0.9 % 250 ml 250 ml @ 250 mls/hr IVPB Q24H [facility] Rx#: [id number] Other: Output Urine Nonnumeric/ Comment Urine xlg [...] 88.9 H, Lymph % (Auto) 4.7 L, [place] % (Auto) 5.2 L, Eos % (Auto) [...] he is safe for discharge back to [facility]. He is receiving breathing treatments. He was [...] to see if he can return to [facility] without any new needs. Possible discharge [...] Differential [HEM] DAILY@0400 Comprehensive Metabolic Panel [CHM] DAILY@0 07/23/25 04:00 CBC w/Auto Differential [HEM] DAILY@0400 Comprehensive Metabolic Panel [CHM] DAILY@0400 07/24/25 04:00 CBC w/Auto Differential [HEM] DAILY@0400 Comprehensive Metabolic Panel [CHM] DAILY@39907/25/25 04:00 CBC w/Auto Differential [HEM] DAILY@0400 Comprehensive [...] Billing Provider:: RL MARTINES Common Visit Codes: 49799-[id number] INP/OBS CARE(MOD) Electronically Generated By:RL MARTINES MD Generated Date/Time: 07/20/25 123 Electronically Signed By: <Electronically signed by RL MARTINES MD> 07/20/252028 Co Signed Electronically By: Co Signed Date/Time: CC: [facility] Work Phone: [phone]) 174-179610-05-2025 Progress note Author RL MARTINES [facility] Note Date/Time July 20, 2025 8: 29pm [facility] [address] [place] [address] HEALTH INFORMATION MANAGEMENT PROGRESS NOTE : [phone] Signed Patient: WILEY MEEK Acct:[id number] MRUN: [id number] : 1940 Sex: M Loc: ICU AD [...] moments where he thinks he is at [facility]. He was able to tellme that his [...] rate, Normal S2, Normal S1, No murmurs, Contract Administration Coordinator Rhythm (Sinus Rhythm). No: Gallops, Rubs, Ectopy [...] @ 100 mls/hr IVPB STAT [facility] Rx#: [id number] Sodium Chloride 0.9 % 1000 1000 ml 1,000 ml @ 999 mls/hr IV .Q1H1M [facility] Rx#: [id number] Zithromax 500 mg 250 Injection 500 mg In Sodium Chloride 0.9 % 250 ml 250 ml @ 250 mls/hr IVPB Q24H [facility] Rx#: [id number] Other: Output Urine Nonnumeric/ Comment Urine xlg [...] 88.9 H, Lymph % (Auto) 4.7 L, [place] % (Auto) 5.2 L, Eos % (Auto) [...] he is safe for discharge back to [facility]. He is receiving breathing treatments. He was [...] to see if he can return to [facility] without any new needs. Possible discharge [...] Differential [HEM] DAILY@0400 Comprehensive Metabolic Panel [CHM] DAILY@0 07/24/25 04:00 CBC w/Auto Differential [HEM] DAILY@0400 Comprehensive Metabolic Panel [CHM] DAILY@0 07/25/25 04:00 CBC w/Auto Differential [HEM] DAILY@0400 [...] Billing Provider:: RL MARTINES Common Visit Codes: 95645-[id number] INP/OBS CARE(MOD) Electronically Generated By:RL MARTINES MD Generated Date/Time: 07/20/25 1232 Electronically Signed By: <Electronically signed by RL MARTINES MD> 07/20/252028 Co Signed Electronically By: Co Signed Date/Time: CC: [facility] Work Phone: [phone] [address] HEALTH INFORMATION MANAGEMENT PROGRESS NOTE : [phone] Signed Patient: WILEY MEEK Acct:[id number] MRUN: [id number] : 1940 Sex: M Loc: ICU AD [...] has moments wherehe thinks he is at [facility]. He was able to tellme that his [...] Diminished at bases). No: Exibits Shortness of Bixby, Pursed Lip Breathing, Use of Accessory Muscles, Retracting Cardiovascular: Yes: Regular rate, Normal S2, Normal S1, No murmurs, Contract Administration Coordinator Rhythm (Sinus Rhythm). No: Gallops, Rubs, Ectopy [...] @ 100 mls/hr IVPB STAT [facility] Rx#: [id number] Sodium Chloride 0.9 % 1000 1000 ml 1,000 ml @ 999 mls/hr IV .Q1H1M [facility] Rx#: [id number] Zithromax 500 mg 250 Injection 500 mg In Sodium Chloride 0.9 % 250 ml 250 ml @ 250 mls/hr IVPB Q24H [facility] Rx#: [id number] Other: Output Urine Nonnumeric/ Comment Urine xlg incont lg incont Laboratory-Last 48 hrs: 07/20/25 04:30 07/20/25 04:30 Laboratory Results-last 24 hrs 07/19/25 10:40: Creatinine 1.50 H, Est GFR (MDRD) Af Amer 54 A, Est GFR (MDRD) Non-Af 45 A, Upklvqo880 H, AST 55 H, Alkaline Phosphatase 52 L, Albumin 3.3 L, Albumin/Globulin Ratio 0.9 L 07/19/25 11:15: RBC 3.91 L, MCV 96.7 H, MCH 32.0 H, Neut % (Auto) 88.9 H, Lymph % (Auto) 4.7 L, [place] % (Auto) 5.2 L, Eos % (Auto) [...] he is safe for discharge back to [facility]. He is receiving breathing treatments. He was [...] to see if he can return to [facility] without any new needs. Possible discharge [...] Billing Provider:: RL MARTINES Common Visit Codes: 86687-[id number] INP/OBS CARE(MOD) Electronically Generated By:RL MARTINES MD Generated Date/Time: 07/20/25 123 Electronically Signed By: 07/20/252028 Co Signed Electronically By: Srikanth Signed Date/Time: CC: [facility]10-05-2025 History and physical note Author RL MARTINES [facility] Note Date/Time July 20, 2025 8: 51am [facility] [address] [place] [address] HEALTH INFORMATION MANAGEMENT HISTORY AND PHYSICAL : [phone] Signed Patient: WILEY MEEK Acct:[id number] MRUN: [id number] : 1940 Sex: M Loc: ICU AD [...] for complaints of , then admitted to [facility] for METABOLIC ENCEPHALOPATHY GENERALIZED WEAKNESS. WILEY was admitted as a ADM to [facility] for further evaluation and treatment. Pt was [...] This was discussed with Tyree his daughterat [phone]. Patient's review of system may be an [...] Smoker Alcohol Use: Never Drugs: None - [place]/Gender ID What is your current Gender Identity? Choose all that Apply: Male Define your Sexual Orientation?: Straight/Heterosexual - Carrier-Suicide Severity Rating Scale 1) Wish to be [...] Yes PMH--Endocrine History: Confirms: Diabetes Type 2 YYR-Vtttw-Fddtiibtl:: heart burn Hx Musculoskeletal Disorders: No PMH--Musculoskeletal: [...] Billing Provider:: RL MARTINES Common Visit Codes: 91785-OASLUHO INP/OBS CARE (HIGH) Electronically Generated By:RL MARTINES MD Generated Date/Time: 07/19/25 1505 Electronically Signed By: <Electronically signed by RL MARTINES MD> 07/20/25 0851 Co Signed Electronically By: Co Signed Date/Time: CC: JAEL ASHLEY DO [facility] Work Phone: [phone]) [phone] Discharge summary Author BRYANNA GAFFNEY [facility] Note Date/Time July 20, 2025 8: 14am [facility] [address] [place] [address] HEALTH INFORMATION MANAGEMENT EMERGENCY DEPARTMENT : [phone] Signed Patient: WILEY MEEK Acct:[id number] MRUN: [id number] : 1940 Sex: M Loc: ICU AD M Date: 07/19/25 Room/Bed: 357-A DISC Date: History of Present Illness - General Chief Complaint: Altered Mental Status Symptom onset: TODAY HPI: TO ED [facility]IA [facility] FROM [facility] PT WAS A&OX4 LAST NIGHT. WOKE UP CONFUSED, A&OX2. FELL THIS MORNING, NO BLOOD THINNERS, DENIES HITTING HEAD. EMS STATES STRONG FOUL SMELLING URINE. Time Seen by Provider: 07/19/25 10:34 Source: Patient, RN/MD Mode of Transport: [facility] - History of Present Illness Initial Comments: patient is an 85-year-old male history of dementia, diabetes, metabolic encephalopathy, assisted resident brought into emergency department for evaluation [...] Living Status: Cancer History: Breast Cancer - [place]/Gender ID What is your current Gender Identity? Choose all that Apply: Male Define your Sexual Orientation?: Straight/Heterosexual - Carrier-Suicide Severity Rating Scale 1) Wish to be [...] Lymph % (Auto) 4.7 L (17.0-45.5) % [place] % (Auto) 5.2 L (5.5-11.7) % Eos [...] Urine Appearance (Clear) Urine pH Ur Specific [place] (1.015-1.025) Urine Protein (Negative) Urine Ketones (Negative) [...] (43.0-65.0) % Lymph % (Auto) (17.0-45.5) % [place] % (Auto) (5.5-11.7) % Eos % (Auto) [...] Clear (Clear) Urine pH 6.5 Ur Specific [place] 1.015 (1.015-1.025) Urine Protein 15 A (Negative) [...] (43.0-65.0) % Lymph % (Auto) (17.0-45.5) % [place] % (Auto) (5.5-11.7) % Eos % (Auto) [...] Urine Appearance (Clear) Urine pH Ur Specific [place] (1.015-1.025) Urine Protein (Negative) Urine Ketones (Negative) [...] 500 Mg Tablet) 500 mg PO BID [facility] Stop: 08/19/25 20:01 Last Admin: 07/19/25 19:38 Dose: 500 mg Documented by: [email or web address] Albuterol/Ipratropium (Ipratropium/Albuterol Sulf Neb Solution) 3 ml IH RTQ4 [facility] Stop: 08/19/25 16:01 Last Admin: 07/20/25 04:20 Dose: 3 ml Documented by: [email or web address] Atorvastatin Calcium (Atorvastatin Calcium 10 Mg Tablet) 20 mg PO QHS [facility] Stop: 08/19/25 22:01 Last Admin: 07/19/25 22:32 Dose: 20 mg Documented by: [email or web address] Divalproex Sodium (Divalproex Sodium 125 Mg Sprinkle Capsule) 125 mg PO BID [facility] Stop: 08/19/25 20:01 Last Admin: 07/19/25 19:38 Dose: 125 mg Documented by: [email or web address] Donepezil HCl (Donepezil Hcl 5 Mg Tablet) 5 mg PO QPM [facility] Stop: 08/19/25 18:01 Last Admin: 07/19/25 18:35 Dose: 5 mg Documented by: [email or web address] Enoxaparin Sodium (Enoxaparin Sodium 40 Mg/0.4 Ml Injection) 40 mg SQ Q24H [facility];Protocol Stop: 08/19/25 16:01 Last Admin: 07/19/25 16:45 Dose: 40 mg Documented by: [email or web address] Cosigned by: [email or web address] Hydralazine HCl (Hydralazine Hcl 25 Mg Tablet) 12.5 mg PO TID [facility] Stop: 08/19/25 22:01 Last Admin: 07/20/25 06:08 Dose: 12.5 mg Documented by: [email or web address] Azithromycin 500 mg/ Sodium (Chloride) 250 mls @ 250 mls/hr IVPB Q24H [facility] Stop: 07/26/25 16:01 Last Infusion: 07/19/25 18:55 [...] chronic changes as described. Electrocardiogram 07/19/25 10:46 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 Normal MO interval. Right bundle branch block. Electronically Signed On 07-19-2025 11:34:18 EDT by Bryanna Gaffney - Medical Decision Making ED Course: [ patient is an 85-year-old male history of dementia, diabetes, metabolic encephalopathy, assisted resident brought into emergency department for evaluation [...] weakness, COVID-19 virus infection Condition: Fair Disposition: 09 ADMITTED INPATIENT [...] Co Signed Date/Time: CC: JAEL ASHLEY DO [facility] Work Phone: 1(688) 812-628510-05-2025 [place] [address] HEALTH INFORMATION MANAGEMENT HISTORY AND PHYSICAL : [phone] Signed Patient: WILEY MEEK Acct:[id number] MRUN: [id number] : 1940 Sex: M Loc: ICU ADM [...] for complaints of , then admitted to [facility] for METABOLIC ENCEPHALOPATHY GENERALIZED WEAKNESS. WILEY was admitted as a ADM to [facility] for further evaluation and treatment. Pt was seen and evaluated on 07/19/25 9613, by this provider, RL MARTINES MD. the [...] was discussed with Tyree his daughter at [phone]. Patient's review of system may be an [...] Smoker Alcohol Use: Never Drugs: None - [place]/Gender ID What is your current Gender Identity? Choose all that Apply: Male Define your Sexual Orientation?: Straight/Heterosexual - Carrier-Suicide Severity Rating Scale 1) Wish to be [...] Asthma, Bronchitis Hx Endoc (more content not included)...[facility] [address] [place] [address] HEALTH INFORMATION MANAGEMENT HISTORY AND PHYSICAL : [phone] Signed Patient: WILEY MEEK Acct:[id number] MRUN: [id number] : 1940 Sex: M Loc: ICU AD [...] for complaints of , then admitted to [facility] for METABOLIC ENCEPHALOPATHY GENERALIZED WEAKNESS. WILEY was admitted asa ADM to [facility] for further evaluation and treatment. Pt was seen and evaluated on 07/19/25 7955, by this provider, RL MARTINES MD. the [...] This was discussed with Tyree his daughterat [phone]. Patient's review of system may be an [...] Smoker Alcohol Use: Never Drugs: None - [place]/Gender ID What is your current Gender Identity? Choose all that Apply: Male Define your Sexual Orientation?: Straight/Heterosexual - Carrier-Suicide Severity Rating Scale 1) Wish to be [...] Yes PMH--Endocrine History: Confirms: Diabetes Type 2 YQF-Xmike-Ciagmgdqg:: heart burn Hx Musculoskeletal Disorders: No PMH--Musculoskeletal: [...] Billing Provider:: RL MARTINES Common Visit Codes: 45143-[id number] INP/OBS CARE (HIGH) Electronically Generated By:RL MARTINES MD Generated Date/Time: 07/19/25 1505 Electronically Signed By: 07/20/25 0851 Co Signed Electronically By: Co Signed Date/Time: CC: JAEL ASHLEY DO [facility]10-05-[address] [address] HEALTH INFORMATION MANAGEMENT EMERGENCY DEPARTMENT : [phone] Signed Patient: WILEY MEEK Acct:[id number] MRUN: [id number] : 1940 Sex: M Loc: ICU AD M Date: 07/19/25 Room/Bed: 357-A DISC Date: History of Present Illness - General Chief Complaint: Altered Mental Status Symptom onset: TODAY HPI: TO ED [facility]IA [facility] FROM [facility]. PT WAS A&OX4 LAST NIGHT. WOKE UP CONFUSED, A&OX2. FELL THIS MORNING, NO BLOOD THINNERS, DENIES HITTING HEAD. EMS STATES STRONG FOUL SMELLING URINE. Time Seen by Provider: 07/19/25 10:34 Source: Patient, RN/MD Mode of Transport: Squad-[facility] - History of Present Illness Initial Comments: patient is an 85-year-old male history of dementia, diabetes, metabolic encephalopathy, assisted resident brought into emergency department for evaluation [...] Living Status: Cancer History: Breast Cancer - [place]/Gender ID What is your current Gender Identity? Choose all that Apply: Male Define your Sexual Orientation?: Straight/Heterosexual - Carrier-Suicide Severity Rating Scale 1) Wish to be [...] Lymph % (Auto) 4.7 L (17.0-45.5) % [place] % (Auto) 5.2 L (5.5-11.7) % Eos [...] Urine Appearance (Clear) Urine pH Ur Specific [place] (1.015-1.025) Urine Protein (Negative) Urine Ketones (Negative) [...] (43.0-65.0) % Lymph % (Auto) (17.0-45.5) % [place] % (Auto) (5.5-11.7) % Eos % (Auto) [...] Clear (Clear) Urine pH 6.5 Ur Specific [place] 1.015 (1.015-1.025) Urine Protein 15 A (Negative) [...] (43.0-65.0) % Lymph % (Auto) (17.0-45.5) % [place] % (Auto) (5.5-11.7) % Eos % (Auto) [...] Urine Appearance (Clear) Urine pH Ur Specific [place] (1.015-1.025) Urine Protein (Negative) Urine Ketones (Negative) [...] 500 Mg Tablet) 500 mg PO BID [facility] Stop: 08/19/25 20:01 Last Admin: 07/19/25 19:38 [...] Mg Sprinkle Capsule) 125 mg PO BID [facility] Stop: 08/19/25 20:01 Last Admin: 07/19/25 19:38 Dose: 125 mg Documented by: [email or web address] Donepezil HCl (Donepezil Hcl 5 Mg Tablet) 5 mg PO QPM OSVALDO Stop: 08/19/25 18:01 Last Admin: 07/19/25 18:35 Dose: 5 mg Documented by: [email or web address] Enoxaparin Sodium (Enoxaparin Sodium 40 Mg/0.4 Ml Injection) 40 mg SQ Q24H [facility];Protocol Stop: 08/19/25 16:01 Last Admin: 07/19/25 16:45 [...] chronic changes as described. Electrocardiogram 07/19/25 10:46 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 Normal MO interval. Right bundle branch block. Electronically Signed On 07-19-2025 11:34:18 EDT by Bryanna Gaffney - Medical Decision Making ED Course: [ patient is an 85-year-old male history of dementia, diabetes, metabolic encephalopathy, assisted resident brought into emergency department for evaluation [...] By: Co Signed Date/Time: CC: JAEL ASHLEY [facility]10-04-2025 Evaluation note* Diagnosis Onset Date Resolution Status Admit Date Bacterial pneumonia acute Octob er 2024 12:38pm COVID-19 virus infection acute July 19, 2025 12:38pm Dehydration acute July 19, 2025 12:38pm Primary hypertension acute Octo re 2024 12:38pm Fall from standing July, acute Oct vadim 2024 12:38pm Generalized weakness acute Octo re 2024 12:38pm Ground-level fall acute July 19, 2025 12:38pm Metabolic encephalopathy acute July 19, 2025 12:38pm Pneumonia acute July 19, 2 025 12:38pm Pneumonia due to COVID-19 virus July, acute July 19 12:38pm Chronic renal failure, stage 3b chronic July 19 12:38pm Dementia without behavioral disturbance chronic July 19 12:38pm Prediabetes chronic July 19, 2025 12:38pm Acute metabolic encephalopathy July, resolved July 19 12:38pm [facility] Work Phone: 1(449) 684-651710-04-2025 Radiology Diagnostic study note [facility] RADIOLOG[facility] [place] [address] [address] SCAN REPORT : [id number], Signed. Patient: WILEY MEEK : 1940 MR#: [id number] Acct:[id number] - EXAM: CT Head Without Intravenous Contrast [...] by: Devang Jackson MD Signed date/time: 07/19/25 5765 CC: JAEL ASHLEY DO; BRYANNA GAFFNEY MD [facility] Work Phone: 1([phone] 118-235210-04-2025 Radiology Diagnostic study note [facility] RADIOLOG[facility] [address] [place] [address] DIAGNOSTIC RADIOLOGY REPORT: [id number], Signed. 2 Patient: WILEY MEEK : 1940, age 85 MR#: [id number] Acct: [id number] - EXAMINATION: ONE XRAY VIEW OF THE [...] by: CHRISTEL MOELLER MD Signed date/time: 07/19/25 6852 CC: JAEL ASHLEY DO; BRYANNA GAFFNEY MD [facility] Work Phone: [phone] 262-138710-04-2025 Radiology Diagnostic study note [facility] RAD[facility] [address] [place] [address] CT SCAN REPORT : [id number], Signed. Patient: WILEY MEEK : 1940 MR#: [id number] Acct:[id number] - EXAM: CT Cervical Spine Without Intravenous [...] by: Devang Jackson MD Signed date/time: 07/19/25 0590 CC: JAEL ASHLEY DO; BRYANNA GAFFNEY MD [facility] Work Phone: 1(754) 853-527409-15-2025 Evaluation note* Encounter Date Assessment Date Assessment [...] AT YOUR DOOR: [facility] S 01-25-2025 [address] [place] [address] HEALTH INFORMATION MANAGEMENT HISTORY AND PHYSICAL : [phone] Signed Patient: WILEY MEEK Acct:[id number] MRUN: [id number] : 1940 Sex: M Loc: ICU ADM [...] for complaints of confusion, then admitted to [facility] for ALTERED MENTAL STATUS ACUTE ON CHRONIC RENAL FAILU. WILEY was admitted as a ADM to [facility] for further evaluation and treatment. Pt was seen and evaluated on 10/22/242055, by this provider, INDIGO DOCKERY CNP. History of present illness: Mr. Meek an 84-year-old male comes to [facility] from [facility] with complaints of confusion change in mental [...] this year. He is and lives at [facility]. He quit smoking in 1963 and denies [...] Marital Status: Lives with: Nursing Facility Occupation: [employer] [facility] Highest Educational Level: High School Able to Read: Yes Able to Write: Yes Smoking Status: Never Smoked Alcohol Use: Never Drugs: None - [place]/Gender ID What is your current Gender Identity? Choose all that Apply: Male Define your Sexual Orientation?: Straight/Heterosexual - Carrier-Suicide Severity Rating Scale 1) Wish to be :: No 2) Suicidal Thoughts:: No 6) Suicidal Behavior Question (A): LIFETIME: No 6) Suicidal Behavior Question (B): PAST 3 MONTHS: No Past Medical History Hx Ear/Nose/Throat Disorders: Yes PMH--Ear/Nose/Throat: Confirms: Cataracts, Farsighted Past Surgical Hx-ENT: Confirms: Cataract Removal-Right, Cataract Removal-Left Hx Neurological Disorder: Yes PMH-Neurological: Confirms: Dementia, Memory Lo (more content not included)... [facility]01-09-2025 Discharge summary Author KHALIF ZAYAS [facility] Note Date/Time October 24, 2024 3: 43pm [facility] [address] [place] [address] HEALTH INFORMATION MANAGEMENT DISCHARGE SUMMARY : [id number] Signed Patient: WILEY MEEK Acct:[id number] MRUN: [id number] : 1940 Sex: M Loc: ICU AD [...] Mr. Meek an 84-year-old male [facility] confusion change in mental [...] Neut % (Auto) 57.8, Lymph% (Auto) 30.4, [place] % (Auto) 8.4, Eos % (Auto) 2.9, [...] Billing Provider:: KHALIF ZAYAS Common Visit Codes: 23722-JGH/OBS DISCH DAY >30min Electronically Generated By:KHALIF ZAYAS MD Generated Date/Time: 10/24/24 1531 Electronically Signed By: <Electronically signed by KHALIF ZAYAS MD> 10/24/24 1543 Co Signed Electronically By: Co Signed Date/Time: CC: MONTRELL EDWARD MD [facility] Work Phone: [phone] NotePATIENT:WILEY MEEK [id number] LOCATION:ICU I.D.#: [id number] : 1940 AGE: SEX:M DISCHARGED: 10/24/24 ORDERED BY:BRYANNA GAFFNEY MD I Nirmal R O B I O L O G Y Patient: WILEY MEEK [id number] Location: [facility] INT Aount: [id number] : 1940 Age: 84 Sex M Lab NumbEr [id number] Requested by: BRYANNA GAFFNEY Admitdate: 10/22/24 Source: BLOOD Collected: 10/22/24 15:32 Site: MEMO Received : 10/22/24 21:24 AVIVA Hurst M E N T S LAB.PORT; Does the Patient have a central line to draw blood from?; N; RUBEN.SITE1; Ruben Site; blood Culture, Blood FINAL 10/27/24 10:51 10/24/24 No growth after 48 hours incubation in aerobic and anaerobic bottle. 10/24/2024 06:15 10/27/24 No growth after 5 days incubation in aerobic and anaerobic bottle. 10/27/2024 10:51 [facility]01-09-2025 NotePATIENT:WILEY MEEK [id number] LOCATION:ICU I.D.#: [id number] : 1940 AGE: SEX:M DISCHARGED: 10/24/24 ORDERED BY:BRYANNA GAFFNEY MD I Nirmal R O B I O L O G Y Patient: WILEY MEEK MRJH [id number] Location: [facility] Aount: [id number] : 1940 Age: 84 Sex M Lab NumbEr [id number] Requested by: BRYANNA GAFFNEY Admitdate: 10/22/24 Source: BLOOD Collected: 10/22/24 15:30 Site: MEMO Received : 10/22/24 21:23 AVIVA Hurst M E N T S LAB.PORT; Does the Patient have a central line to draw blood from?; N; RUBEN.SITE1; Ruben Site; blood Culture, Blood FINAL 10/27/24 10:51 10/24/24 No growth after 48 hours incubation in aerobic and anaerobic bottle. 10/24/2024 06:15 10/27/24 No growth after 5 days incubation in aerobic and anaerobic bottle. 10/27/2024 10:51 [facility]01-09-[address] [address] HEALTH INFORMATION MANAGEMENT DISCHARGE SUMMARY : [id number] Signed Patient: WILEY MEEK Acct:[id number] MRUN: [id number] : 1940 Sex: M Loc: ICU AD [...] Mr. Meek an 84-year-old male [facility] change in mental [...] Neut % (Auto) 57.8, Lymph% (Auto) 30.4, [place] % (Auto) 8.4, Eos % (Auto) 2.9, [...] Billing Provider:: KHALIF ZAYAS Common Visit Codes: 43917-KMR/OBS DISCH DAY >30min Electronically Generated By:KHALIF ZAYAS MD Generated Date/Time: 10/24/24 1531 Electronically Signed By: 10/24/24 1543 Co Signed Electronically By: Co Signed Date/Time: CC: MONTRELL EDWARD MD [facility]01-09-[address] [address] HEALTH INFORMATION MANAGEMENT DISCHARGE SUMMARY : [id number] Signed Patient: WILEY MEEK Acct:[id number] MRUN: [id number] : 1940 Sex: M Loc: ICU ADM [...] Mr. Meek an 84-year-old male comes to [facility] from [facility] with complaints of confusion change in mental [...] % (Auto) 57.8, Lymph % (Auto) 30.4, [place] % (Auto) 8.4, Eos % (Auto) 2.9, [...] of ASCVD?: No Vis (more content not included)...[facility]01-08-2025 Discharge summary Author BRYANNA GAFFNEY [facility] Note Date/Time October 23, 2024 6: 30pm [facility] [address] [place] [address] HEALTH INFORMATION MANAGEMENT EMERGENCY DEPARTMENT : [id number] Signed Patient: WILEY MEEK Acct:[id number] MRUN: [id number] : 1940 Sex: M Loc: ICU AD M Date: 10/22/24 Room/Bed: 354-A DISC Date: History of Present Illness - General Chief Complaint: Altered Mental Status Stated Complaint: CONFUSION Symptom onset: TODAY HPI: PT ARRIVES TO THE ED WITH C/O CONFUSION THAT STARTED TODAY. PT DENIES ANY COMPLAINTS ON ARRIVAL TO ED. PT STATES I GUESS IM HERE TO GET CHECKED OUT. PT FROM [facility] PT HAS INCREASED CONFUSION. Time Seen [...] Living Status: Cancer History: Breast Cancer - [place]/Gender ID What is your current Gender Identity? Choose all that Apply: Male Define your Sexual Orientation?: Straight/Heterosexual - Carrier-Suicide Severity Rating Scale 1) Wish to be [...] % Lymph % (Auto) 31.1 (17.0-45.5) % [place] % (Auto) 7.2 (5.5-11.7) % Eos % [...] Urine Appearance (Clear) Urine pH Ur Specific [place] (1.015-1.025) Urine Protein (Negative) Urine Ketones (Negative) [...] (43.0-65.0) % Lymph % (Auto) (17.0-45.5) % [place] % (Auto) (5.5-11.7) % Eos % (Auto) [...] Clear (Clear) Urine pH 5 Ur Specific [place] 1.020 (1.015-1.025) Urine Protein Negative (Negative) Urine Ketones Negative (Negative) Urine Blood Negative (Negative) Urine Nitrite Negative (Negative) Urine Bilirubin Negative (Negative) Urine Urobilinogen Normal (Normal-1.0) mg/dL Ur Leukocyte Esterase Negative (Negative) Urine Glucose Normal (Negative) Orders: Medications Aspirin (Aspirin 81 Mg Chew Tablet) 81 mg PO DAILY [facility] Stop: 11/23/24 09:01 Last Admin: 10/23/24 08:52 Dose: 81 mg Documented by: CHELE Atorvastatin Calcium (Atorvastatin Calcium 40 Mg Tablet) 80 mg PO QHS [facility] Stop: 11/22/24 22:01 Last Admin: 10/22/24 21:13 Dose: 80 mg Documented by: [email or web address] Divalproex Sodium (Divalproex Sodium 125 Mg Sprinkle Capsule) 125 mg PO BID [facility] Stop: 11/22/24 20:01 Last Admin: 10/23/24 08:52 Dose: 125 mg Documented by: CHELE Enoxaparin Sodium (Enoxaparin Sodium 40 Mg/0.4 Ml Injection) 40 mg SQ Q24H [facility];Protocol Stop: 11/22/24 18:01 Last Admin: 10/23/24 17:46 Dose: 40 mg Documented by: CHELE Cosigned by: [email or web address] Fenofibrate (Fenofibrate 145 Mg Tablet) 145 mg PO DAILY [facility] Stop: 11/23/24 09:01 Last Admin: 10/23/24 08:52 Dose: 145 mg Documented by: CHELE Finasteride (Finasteride 5 Mg Tablet) 5 mg PO DAILY [facility] Stop: 11/23/24 09:01 Last Admin: 10/23/24 08:52 Dose: 5 mg Documented by: CHELE Hydralazine HCl (Hydralazine Hcl 25 Mg Tablet) 25 mg PO TID [facility] Stop: 11/22/24 22:01 Last Admin: 10/23/24 14:15 Dose: 25 mg Documented by: CHELE Insulin Glargine (Insulin Glargine,Hum.Rec.Anlog 100 Unit/1 Ml) 10 unit SQ DAILY [facility] Stop: 11/22/24 18:01 Last Admin: 10/23/24 08:48 Dose: Not Given Documented by: CHELE Non-Admin Reason: Held by Nurse Comments: glucose 108, not on insulin at home Insulin Human Lispro (Insulin Lispro 100 Unit/Ml Insulin Pen) 0 unit SQ ACHS [facility] Stop: 11/22/24 22:01 Last Admin: 10/23/24 16:50 [...] 10/23/24 17:46 Dose: 0.4 mg Documented by: [email or web address] Discontinued Medications Ceftriaxone Sodium 2 gm/ (Sodium [...] - Radiology Data IMPRESSIONS Electrocardiogram 10/22/24 15:13 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 : 1940 Requested By: BRYANNA GAFFNEY Order Number: [id number] Reading MD: Measurements Intervals [place] Rate: 97 P: 53 MO: 201 QRS: 70 QRSD: 144 T: -10 [...] Co Signed Date/Time: CC: MONTRELL EDWARD MD [facility] Work Phone: 1([phone]) 350-115101-08-2025 [place] [id number] HEALTH INFORMATION MANAGEMENT EMERGENCY DEPARTMENT : Signed Patient: WILEY MEEK Acct:[id number] MRUN: [id number] : 1940 Sex: M Loc: ICU AD M Date: 10/22/24 Room/Bed: 354-A DISC Date: History of Present Illness - General Chief Complaint: Altered Mental Status Stated Complaint: CONFUSION Symptom onset: TODAY HPI: PT ARRIVES TO THE ED WITH C/O CONFUSION THAT STARTED TODAY. PT DENIES ANY COMPLAINTS ON ARRIVAL TO ED. PT STATES I GUESS IM HERE TO GET CHECKED OUT. PT FROM [facility] PT HAS INCREASED CONFUSION. [...] Living Status: Cancer History: Breast Cancer - [place]/Gender ID What is your current Gender Identity? Choose all that Apply: Male Define your Sexual Orientation?: Straight/Heterosexual - [place]-Suicide Severity Rating Scale 1) Wish to be [...] % Lymph % (Auto) 31.1 (17.0-45.5) % [place] % (Auto) 7.2 (5.5-11.7) % Eos % [...] Urine Appearance (Clear) Urine pH Ur Specific [place] (1.015-1.025) Urine Protein (Negative) Urine Ketones (Negative) [...] (43.0-65.0) % Lymph % (Auto) (17.0-45.5) % [place] % (Auto) (5.5-11.7) % Eos % (Auto) [...] Clear (Clear) Urine pH 5 Ur Specific [place] 1.020 (1.015-1.025) Urine Protein Negative (Negative) Urine Ketones Negative (Negative) Urine Blood Negative (Negative) Urine Nitrite Negative (Negative) Urine Bilirubin Negative (Negative) Urine Urobilinogen Normal (Normal-1.0) mg/dL Ur Leukocyte Esterase Negative (Negative) Urine Glucose Normal (Negative) Orders: Medications Aspirin (Aspirin 81 Mg Chew Tablet) 81 mg PO DAILY [facility] Stop: 11/23/24 09:01 Last Admin: 10/23/24 08:52 Dose: 81 mg Documented by: [email or web address] Atorvastatin Calcium (Atorvastatin Calcium 40 Mg Tablet) 80 mg PO QHS [facility] Stop: 11/22/24 22:01 Last Admin: 10/22/24 21:13 Dose: 80 mg Documented by: [email or web address] Divalproex Sodium (Divalproex Sodium 125 Mg Sprinkle Capsule) 125 mg PO BID [facility] Stop: 11/22/24 20:01 Last Admin: 10/23/24 08:52 Dose: 125 mg Documented by: [email or web address] Enoxaparin Sodium (Enoxaparin Sodium 40 Mg/0.4 Ml Injection) 40 mg SQ Q24H [facility];Protocol Stop: 11/22/24 18:01 Last Admin: 10/23/24 17:46 Dose: 40 mg Documented by: CHELE Cosigned by: [email or web address] Fenofibrate (Fenofibrate 145 Mg [...] 100 Unit/1 Ml) 10 unit SQ DAILY [facility] Stop: 11/22/24 18:01 Last Admin: 10/23/24 08:48 [...] - Radiology Data IMPRESSIONS Electrocardiogram 10/22/24 15:13 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01-07-2025 Evaluation note* Diagnosis Onset Date Resolution Status Admit Date Acute renal failure superimposed on chronic kidney disease acute October 22 4:42pm Altered mental status acute Oct 4:42pm [facility] Work Phone: 1(746) 845-575301-07-2025 Radiology Diagnostic study note [facility] RAD[facility] [place] [address] [address] SCAN REPORT : [id number], Signed. Patient: WILEY MEEK : 1940 MR#: [id number] Acct:[id number] - EXAMINATION: CT OF THE HEAD WITHOUT [...] by: LINDSEY CHARLES MD Signed date/time: 10/22/24 7343 CC: BRYANNA GAFFNEY MD; MONTRELL EDWARD MD [facility] Work Phone: 1([phone]) [phone] Radiology Diagnostic study note [facility] [place] [address] DIAGNOSTIC RADIOLOGY REPORT: [id number], Signed. 2 Patient: WILEY MEEK : 1940, age 84 MR#: [id number] Acct: [id number] - EXAMINATION: ONE XRAY VIEW OF THE [...] by: VALENTIN CARREON MD Signed date/time: 10/22/24 1602 CC: BRYANNA GAFFNEY MD; MONTRELL EDWARD MD [facility] Work Phone: 1(873) 982-620903-10-2024 History and physical note Author PRESTON BERKOWITZ [facility] December 24, 2023 8:06pm Note Date/Time December 22, 2023 10:4 2pm [facility] [address] [place] [address] HEALTH INFORMATION MANAGEMENT HISTORY AND PHYSICAL : [id number] Signed Patient: WILEY MEEK Acct:[id number] MRUN: [id number] : 1940 Sex: M Loc: 4TH FLOOR [...] for complaints of , then admitted to [facility] for ZAY. [facility]. Pt was seen and evaluated on 12/22/23 2242, by this provider, INDIGO DOCKERY CNP. History of present illness: Mr. Meek an 83-year-old male [facility] assisted living facility as they [...] he received. He is and lives at [place] [address]. He quit smoking 20 years ago. He [...] Smoked Alcohol Use: Never Drugs: None - [place]/Gender ID What is your current Gender Identity? Choose all that Apply: Male Define your Sexual Orientation?: Straight/Heterosexual - Carrier-Suicide Severity Rating Scale 1) Wish to be [...] Yes PMH--Endocrine History: Confirms: Diabetes Type 2 HWF-Ivicc-Zzgjxxpsg:: heart burn Hx Musculoskeletal Disorders: No PMH--Musculoskeletal: [...] air movement, Unlabored. No: Exibits Shortness of [place], Shortness Of Breath Scale Cardiovascular: Yes: Regular [...] Billing Provider:: INDIGO DOCKERY Common Visit Codes: 57494-HYEUYER INP/OBS CARE (MOD) Electronically Generated By:INDIGO DOCKERY ELECTRIC MOTOR ASSEMBLER AND TESTER Generated Date/Time: 12/22/23 2242 Electronically Signed By: <Electronically signed by INDIGO DOCKERY [facility]> 12/23/23 0604 <Electronically signed by PRESTON BERKOWITZ MD> 12/24/232005 Co Signed Electronically By: PRESTON BERKOWITZ MD Co Signed Date/Time: 12/24/232005 CC: MONTRELL EDWARD MD [facility] Work Phone: 1(740) 825-331903-10-2024 Discharge summary Author GRETTA HALL [facility] December 24, 2023 12:12pm Note Date/Time December 24, 2023 12: 09pm [facility] [address] [place] [address] HEALTH INFORMATION MANAGEMENT DISCHARGE SUMMARY : [phone] Signed Patient: WILEY MEEK Acct:[id number] MRUN: [id number] : 1940 Sex: M Loc: 4TH FLOOR [...] for complaints of , then admitted to [facility] for ZAY. WI[facility]. Pt was seen and evaluated on 12/22/23 2242, by this provider, INDIGO DOCKERY CNP. History of present illness: Mr. Meek an 83-year-old male comes to [facility] fromhis assisted living facility as they [...] he received. He is and lives at [place] [address]. He quit smoking 20 years ago. He [...] hours throughout his hospital stay. OK [facility] Treatment: 12/24/23 05:51 12/24/23 05:51 Laboratory Results - last 24 hr 12/24/23 07:47: POC Glucose (mg/dL) 121 12/24/23 05:51: WBC 10.2, RBC 3.75 L, Hgb 11.7 L, Hct 37.6, MCV 100.3 H, MCH 31.2 H, MCHC 31.1 L, RDW 13.9, Plt Count 258, MPV 9.1, Neut % (Auto) 73.1 H, Lymph % (Auto) 16.4 L, [place] % (Auto) 8.5, Eos % (Auto) 1.5, [...] Billing Provider:: GRETTA HALL Common Visit Codes: 22412-DAI/OBS DISCH DAY <30MIN Electronically Generated By:GRETTA HALL MD Generated Date/Time: 12/24/23 1207 Electronically Signed By: <Electronically signed by GRETTA HALL MD> 12/24/23 1212 Co Signed Electronically By: Co Signed Date/Time: CC: MONTRELL EDWARD MD [facility] Work Phone: 1([phone]) 973-928303-09-2024 Progress note Author GRETTA HALL [facility] December 23, 2023 10:39am Note Date/Time December 23, 2023 10:3 8am [facility] [address] [place] [address] HEALTH INFORMATION MANAGEMENT PROGRESS NOTE : [phone] Signed Patient: WILEY MEEK Acct:[id number] MRUN: [id number] : 1940 Sex: M Loc: 4TH FLOOR [...] air movement, Unlabored. No: Exibits Shortness of Bixby, Pursed Lip Breathing, Use of Accessory Muscles, Retracting Cardiovascular: Yes: Regular rate, Normal S2, Normal S1, No murmurs, Contract Administration Coordinator Rhythm (Sinus Rhythm). No: Gallops, Rubs, Ectopy [...] 999 mls/ hr IV .Q31M STA Rx#: [id number] Intake ml 120 360 Oral 120 120 [...] Billing Provider:: GRETTA HALL Common Visit Codes: 76806-GRTPVTCRGP INP/OBS CARE(MOD) Electronically Generated By:GRETTA HALL MD Generated Date/Time: 12/23/23 1036 Electronically Signed By: <Electronically signed by GRETTA HALL MD> 12/23/23 1039 Co Signed Electronically By: Co Signed Date/Time: CC: [facility] Work Phone: 1([phone]) 126-817403-09-2024 Discharge summary Author DENIZ MCPHERSON [facility] December 23, 2023 8:20am Note Date/Time December 22, 2023 5:26 pm [facility] [address] [place] [id number] HEALTH INFORMATION MANAGEMENT EMERGENCY DEPARTMENT : [phone] Signed Patient: WILEY MEEK Acct:[id number] MRUN: [id number] : 1940 Sex: M Loc: 4TH FLOOR ADM Date: 12/22/23 Room/Bed: 431-B DISC Date: History of Present Illness - General Chief Complaint: Altered Mental Status Symptom onset: 06:00 HPI: PATIENT PRESENTS TO THE ER [facility] WITH REPORTED ALTERED MENTAL STATUS. PER EMS, FACILITY STATED PATIENT HAD SOME INCREASED CONFUSION THIS MORNING. Time Seen by Provider: 12/22/23 16:41 Source: Patient Mode of Transport: Squad-[facility] - History of [...] Sodium [Depakote] 125 mg PO BID 08/11/21 12/23/23 Loperamide HCl [Loperamide] 2 mg PO Q6H [...] Status: Cardiac: Cardiac Disorder(s), Myocardial Infarction - [place]/Gender ID What is your current Gender Identity? Choose all that Apply: Male Define your Sexual Orientation?: Straight/Heterosexual - Carrier-Suicide Severity Rating Scale 1) Wish to be [...] - Skin Skin Color: Present: Normal, [place] Skin exam: Present: warm, dry - Vital Signs Vital Signs 03/06/0812/22/23 12/22/23 16:46 20:57 21:25 Temperature 97.2 F [...] % Lymph % (Auto) 29.0 (17.0-45.5) % [place] % (Auto) 6.9 (5.5-11.7) % Eos % [...] Urine Appearance (Clear) Urine pH Ur Specific [place] (1.015-1.025) Urine Protein (Negative) Urine Ketones (Negative) [...] (43.0-65.0) % Lymph % (Auto) (17.0-45.5) % [place] % (Auto) (5.5-11.7) % Eos % (Auto) [...] Clear (Clear) Urine pH 5 Ur Specific [place] 1.020 (1.015-1.025) Urine Protein 25 A (Negative) [...] (43.0-65.0) % Lymph % (Auto) (17.0-45.5) % [place] % (Auto) (5.5-11.7) % Eos % (Auto) [...] Urine Appearance (Clear) Urine pH Ur Specific [place] (1.015-1.025) Urine Protein (Negative) Urine Ketones (Negative) [...] 5000 Unit/Ml Injection) 5,000 unit SQ Q12H [facility]; Protocol Stop: 01/23/24 06:01 Last Admin: 12/23/23 07:20 Dose: 5,000 unit Documented by: JUVENAL Cosigned by: ANNE-MARIE Hydralazine HCl (Hydralazine Hcl 25 Mg Tablet) 25 mg PO TID [facility] Stop: 01/23/24 06:01 Last Admin: 12/23/23 05:15 Dose: 25 mg Documented by: JUVENAL Sodium Chloride (Sodium Chloride 0.9 % 1000 Ml) 1,000 mls @ 80 mls/hr IV .[id number] PRN PRN Reason: INTRAVENOUS Stop: 01/22/24 20:48 Last Admin: 12/22/23 23:34 Dose: 80 mls/hr Documented by: JUVENAL Pantoprazole Sodium (Pantoprazole Sodium 40 Mg Tablet) 40 mg PO PROTONIX-ACBK [facility] Stop: 01/23/24 06:01 Last Admin: 12/23/23 05:15 [...] IMPRESSION: No acute process. Electrocardiogram 12/22/23 16:42 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 December 23, 2023 4:48am Note Date/Time December 22, 2023 8:37 pm [facility] [address] [place] [address] HEALTH INFORMATION MANAGEMENT EMERGENCY DEPARTMENT : [phone] Signed Patient: WILEY MEEK Acct:[id number] MRUN: [id number] : 1940 Sex: M Loc: 4TH FLOOR [...] Status: Cardiac: Cardiac Disorder(s), Myocardial Infarction - [place]/Gender ID What is your current Gender Identity? Choose all that Apply: Male Define your Sexual Orientation?: Straight/Heterosexual - Carrier-Suicide Severity Rating Scale 1) Wish to be [...] % Lymph % (Auto) 29.0 (17.0-45.5) % [place] % (Auto) 6.9 (5.5-11.7) % Eos % [...] Urine Appearance (Clear) Urine pH Ur Specific [place] (1.015-1.025) Urine Protein (Negative) Urine Ketones (Negative) Urine Blood (Negative) Urine Nitrite (Negative) Urine Bilirubin (Negative) Urine Urobilinogen (Normal-1.0) mg/dL Ur Leukocyte Esterase (Negative) Urine Glucose (Negative) 03/08/24 03/08/24 03/08/24 Range/Units 17:09 17:09 18:24 WBC (3.6-10.8) K/uL RBC (4.13-5.69) M/uL Hgb (12.4-17.3) g/dL Hct (36.7-50.6) % MCV (80.0-94.0) fL MCH (27.0-31.0) pg MCHC (33.0-37.0) g/dL RDW (11.5-14.5) % Plt Count (148-402) K/uL MPV (7.4-10.4) fL Neut % (Auto) (43.0-65.0) % Lymph % (Auto) (17.0-45.5) % [place] % (Auto) (5.5-11.7) % Eos % (Auto) [...] Clear (Clear) Urine pH 5 Ur Specific [place] 1.020 (1.015-1.025) Urine Protein 25 A (Negative) [...] (43.0-65.0) % Lymph % (Auto) (17.0-45.5) % [place] % (Auto) (5.5-11.7) % Eos % (Auto) [...] Urine Appearance (Clear) Urine pH Ur Specific [place] (1.015-1.025) Urine Protein (Negative) Urine Ketones (Negative) [...] IMPRESSION: No acute process. Electrocardiogram 12/22/23 16:42 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 June 02, 2023 4:03pm Note Date/Time June 02, 2023 4: 03pm [facility] [place] [address] HEALTH INFORMATION MANAGEMENT DISCHARGE SUMMARY : [phone] Signed Patient: WILEY MEEK Acct:[id number] MRUN: [id number] : 1940 Sex: M Loc: 4TH FLOOR [...] Patient is 83-year-old male who presented to [facility] ED on 05/31/2023 for weakness associated [...] Neut % (Auto) 53.0, Lymph %(Auto) 38.0, [place] % (Auto) 7.0, Eos % (Auto) 2.0, [...] Billing Provider:: MELISA CAREY Common Visit Codes: 42278-WTE/OBS DISCH DAY >30min Physical Exam Vital Signs: [...] Date/Time: CC: XIAO VALENTINE ; VENANCIO LU [facility] Work Phone: 1(328) 888-482608-18-2023 Evaluation note* Author [facility] Authored June 02, 2023 4: 02pm Assessment [...] GERD Generalized weakness, age related physical debility [facility] Work Phone: 1(652) 250-627908-18-2023 Consult note Author VENANCIO JIMÉNEZ [facility] June 02, 2023 10:52am Note Date/Time June 02, 2023 10 :52am [facility] [address] [place] [address] HEALTH INFORMATION MANAGEMENT CONSULTATION : [phone] Signed Patient: WILEY MEEK Acct:[id number] MRUN: [id number] : 1940 Sex: M Loc: 4TH FLOOR [...] hyperlipidemia, diabetes mellitus, dementia, asthma presented to [place] with complaints of generalized weakness for past [...] % (Auto) 38.0 % (17.0-45.5) 06/02/23 04:40 [place] % (Auto) 7.0 % (5.5-11.7) 06/02/23 04:40 [...] Urine pH 5 05/31/23 23:15 Ur Specific [place] 1.025 (1.015-1.025) 05/31/23 23:15 Urine Protein 25 [...] Dose Route Start Last Admin Trade Name Damiq PRN Reason Stop Dose Admin Aspirin 81 [...] 20 Mg Tablet PO 07/03/23 10:01 Q48H OVSALDO Finasteride 5 mg 06/01/23 09:00 06/01/23 08:56 [...] Unit/Ml SQ 07/02/23 07:31 Not Given ACHS OSVALDO Tamsulosin HCl 0.4 mg 06/01/23 18:00 06/01/23 [...] Yes PMH--Endocrine History: Confirms: Diabetes Type 2 KEQ-Xvmfu-Fujtrswyv:: heart burn Hx Musculoskeletal Disorders: No PMH--Musculoskeletal: [...] 1960s Alcohol Use: Never Drugs: None - [place]/Gender ID What is your current Gender Identity? Choose all that Apply: Male Define your Sexual Orientation?: Straight/Heterosexual - Carrier-Suicide Severity Rating Scale 1) Wish to be [...] Date/Time: CC: XIAO VALENTINE ; VENANCIO LU [facility] Work Phone: [phone]) 185-202908-18-2023 Discharge summary Author MELISA CAREY [facility] June 02, 2023 4:03pm Note Date/Time June 02, 2023 4: 03pm [facility] [address] [place] [address] HEALTH INFORMATION MANAGEMENT DISCHARGE SUMMARY : [phone] Signed Patient: WILEY MEEK Acct:[id number] MRUN: [id number] : 1940 Sex: M Loc: 4TH FLOOR [...] Patient is 83-year-old male who presented to [facility] ED on 05/31/2023 for weakness associated [...] Neut % (Auto) 53.0, Lymph %(Auto) 38.0, [place] % (Auto) 7.0, Eos % (Auto) 2.0, [...] Billing Provider:: MELISA CAREY Common Visit Codes: 19469-XYS/OBS DISCH DAY >30min Physical Exam Vital Signs: [...] Date/Time: CC: XIAO VALENTINE ; VENANCIO LU [facility] Work Phone: 1(760) 901-409008-18-2023 History and physical note Author [facility] June 01, 2023 10:27pm Note Date/Time June 01, 2023 1: 27am [facility] [address] [place] [address] HEALTH INFORMATION MANAGEMENT HISTORY AND PHYSICAL : Signed with Katy Patient: WILEY MEEK Acct:[id number] MRUN: [id number] : 1940 Sex: M Loc: 4TH FLOOR [...] a 83 year old M patient of [facility]. Patient was admitted from to room 428, bed B on 06/01/23 00:40. Pt was evaluated for complaints of , then admitted to [facility] for ACUTE KIDNEY INJURY, WEAKNESS. WILEY was admitted as a ADM to [facility] for further evaluation and treatment. Pt was seen and evaluated on 06/01/23 0124, by this provider, INDIGO DOCKERY, ASHLEY. History of present illness: Mr. Pearl an 83-year-old male comes to [facility] with complaints of weakness. He reports [...] flu shot. He is and lives at [facility]. He quit smoking in the 1960s and [...] Marital Status: Lives with: Nursing Facility Occupation: [email or web address] Highest Educational Level: High School Able to Read: Yes Able to Write: Yes Smoking Status: Former Smoker Packs Per Day Reported: Quit smoking in the 1960s Alcohol Use: Never Drugs: None - [place]/Gender ID What is your current Gender Identity? Choose all that Apply: Male - Carrier-Suicide Severity Rating Scale 1) Wish to be [...] Yes PMH--Endocrine History: Confirms: Diabetes Type 2 YUR-Rfehe-Jjkgpkdey:: heart burn Hx Musculoskeletal Disorders: No Hx [...] air movement, Unlabored. No: Exibits Shortness of [place], Shortness Of Breath Scale Cardiovascular: Yes: Regular [...] [facility] We are monitoring him on telemetry 08/05 [...] Billing Provider:: INDIGO DOCKERY Common Visit Codes: 41958-AECSPSR INP/OBS CARE (MOD) Electronically Generated By:INDIGO DOCKERY CNP Generated Date/Time: 06/01/23 0124 Electronically Signed By: <Electronically signed by INDIGO DOCKERY CNP> 06/01/23 0207 <Electronically signed by MELISA CAREY MD> 08/17/23 2215 Co Signed Electronically By: MELISA CAREY MD Co Signed Date/Time: 06/01/232214 CC: XIAO VALENTINE ; VENANCIO LU [facility] Work Phone: 1(967) 663-310508-17-2023 Discharge summary Author VALENTE PARKER [facility] June 01, 2023 12:40am Note Date/Time May 31, 2023 10 :20pm [facility] [address] [place] [address] HEALTH INFORMATION MANAGEMENT EMERGENCY DEPARTMENT : [phone] Signed Patient: WILEY MEEK Acct:[id number] MRUN: [id number] : 1940 Sex: M Loc: ED AD [...] Dexlansoprazole [Dexilant] 30 mg PO DAILY #30 chai. 08/26/21 Hydrocodone Bit/Acetaminophen 1 each PO TID PRN #12 tablet 09/01/22 [[place] 5/325 mg Tablet] Allergies Allergy/AdvReac Type Severity [...] Status: Cardiac: Cardiac Disorder(s), Myocardial Infarction - [place]/Gender ID What is your current Gender Identity? Choose all that Apply: Male - Carrier-Suicide Severity Rating Scale 1) Wish to be [...] % Lymph % (Auto) 31.3 (17.0-45.5) % [place] % (Auto) 6.9 (5.5-11.7) % Eos % [...] Urine Appearance (Clear) Urine pH Ur Specific [place] (1.015-1.025) Urine Protein (Negative) Urine Ketones (Negative) [...] (43.0-65.0) % Lymph % (Auto) (17.0-45.5) % [place] % (Auto) (5.5-11.7) % Eos % (Auto) [...] Clear (Clear) Urine pH 5 Ur Specific [place] 1.025 (1.015-1.025) Urine Protein 25 A (Negative) [...] 05/31/23 23:10 Dose: 150 mls/hr Documented by: [email or web address] Labs 05/31/23 22:14 12-Lead per nursing [RC] [...] - Radiology Data IMPRESSIONS Electrocardiogram 05/31/23 22:14 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: charley : 1940 Requested By: VALENTE PARKER Order Number: [id number] Reading MD: Measurements Intervals [place] Rate: 91 P: -21 MO: 44 QRS: -24 QRSD: 88 T: -24 QT: 306 QTc: 377 Interpretive Statements Sinus rhythm Atrial premature complex Short MO interval Probable left atrial enlargement Inferior infarct, [...] head Social determinant that may affects healthcare: [facility] patient Pt?s case/impression summarized and discussed with: [...] Acute kidney injury, Weakness Condition: Fair Disposition: ADMITTED INPATIENT Admission/OVS: Admit as Inpatient Referrals: [...] Dexlansoprazole [Dexilant] 30 mg PO DAILY #30 chai. 08/26/21 Hydrocodone Bit/Acetaminophen 1 each PO TID PRN #12 tablet 09/01/22 [[place] 5/325 mg Tablet] Time Seen by Provider: 05/31/23 22:13 Electronically Generated By:VALENTE PARKER MD Generated Date/Time: 05/31/237 Electronically Signed By: <Electronically signed by VALENTE PARKER MD> 06/01/23 0040 Co Signed Electronically By: Co Signed Date/Time: CC: XIAO VALENTINE [facility] Work Phone: 1([phone]) 278-518411-17-2022 Discharge summary Author LAWSON ACOSTA [facility] September 01, 2022 2:50pm Note Date/Time September 01, 2022 2:50pm [facility] [address] [place] [address] HEALTH INFORMATION MANAGEMENT EMERGENCY DEPARTMENT : [phone] Signed Patient: WILEY MEEK Acct:[id number] MRUN: [id number] : 1940 Sex: M Loc: ED AD [...] Status: Cardiac: Cardiac Disorder(s), Myocardial Infarction - [place]/Gender ID What is your current Gender Identity? Choose all that Apply: Male - Carrier-Suicide Severity Rating Scale 1) Wish to be [...] Additional Instructions: Watch for sedation while taking [place] as prescribed. Follow-up with orthopedicsfor outpatient reevaluation of L1 compression fracture, call orthopedic office today and schedule follow-up appointment. Return to ER if symptoms worse or anyother problem. Fall precautions to be maintained by staff at patient's assistedliving facility. Call the orthopedic clinic in [place] for follow-up of your orthopedic needs. Walk-in and same day appointments are available and welcome! [phone] [place], [place] Home Medications: Ambulatory Orders Medication Instructions [...] each PO TID PRN #12 tablet 09/01/22 [[place] 5/325 mg Tablet] Home medications and allergies reviewed: Yes Time Seen by Provider: 09/01/22 00:30 - Consultation Nurses Notes Reviewed and Agreed With?: Yes - Dictation Amendments/Documentation[facility] Attestation: At least one of [...] By: Co Signed Date/Time: CC: LINDSEY LANDAVERDE [facility] Work Phone: 1(523) 201-187208-29-2021 Emergency department Note* Carmen Glover RN - 06/13/2021 11:13 AM EDT Report called to [place]. * Carmen Glover RN - 06/13/2021 11:08 AM EDT Pt daughter is almost here. Will transport pt to assisted. * Carmen Glover RN - 06/13/2021 10:52 AM EDT Called lab regarding procalcitonin results, Blanquita is running. * Chris Martinez DO - 06/13/2021 10:35 AM EDT ED Diagnosis and Summary 1. ZAY (acute kidney injury) ([facility]) 2. Dehydration 3. Dementia without behavioral disturbance, unspecified dementia type (HCC) ED Summary I did review the patient's medical records from [place] he did have worsening renal function as [...] abdominal exam. Images of the chest at [place] were benign. His urinalysis was also benign and his renal function has improved significantly. I am awaiting a procalcitonin, if it is also negative, I do feel discharge home is appropriate. He does live at the assisted. I will recommend they continue to encourage [...] him from the ED back to his assisted with the only new order to hold [...] and elevated lactate. He was seen at [facility] department and was assumed to have sepsis. [...] Pt presents to ED via EMS from [place] w/c/o dizziness and frequent falls from assisted. Dx w/ sepsis. Given 3 L NS, 1 g Vanc, 3.375 g Zosyn Pt. AOx2, unknown year in NAD, resp. easy unlabored, skin w/p/d. * Ce Marcial RN - 06/13/2021 9:27 AM EDT Bed: 14 [facility] Expected date: 06/13/21 Expected time: 9:26 AM Means of arrival: [facility] Comments: 81 yo male Transfer from [place], dizziness, frequent falls, sepsis documented in [facility] SystemDischarge summary Author KHALIF ZAYAS [facility] Note Date/Time October 24, 2024 3: 43pm [facility] [address] [place] [address] HEALTH INFORMATION MANAGEMENT DISCHARGE SUMMARY : [phone] Signed Patient: WILEY MEEK Acct:[id number] MRUN: [id number] : 1940 Sex: M Loc: ICU AD [...] Mr. Meek an 84-year-old [facility] change in mental [...] Neut % (Auto) 57.8, Lymph% (Auto) 30.4, [place] % (Auto) 8.4, Eos % (Auto) 2.9, [...] Billing Provider:: KHALIF ZAYAS Common Visit Codes: 17874-EWY/OBS DISCH DAY >30min Electronically Generated By:KHALIF ZAYAS MD Generated Date/Time: 10/24/24 1531 Electronically Signed By: <Electronically signed by KHALIF ZAYAS MD> 10/24/24 1543 Co Signed Electronically By: Co Signed Date/Time: CC: MONTRELL EDWARD MD [facility] Work Phone: Evaluation note* Diagnosis ZAY (acute kidney injury) (HCC)- Primary Acute kidney failure, unspecified Dehydration Dementia without behavioral disturbance, unspecified dementia type (HCC) documented in this encounter [facility] SystemEvaluation noteNo assessment information available [facility] Work Phone: Evaluation note* Author MELISA CAREY [facility] Authored June 02, 2023 4: 02pm [...] GERD Generalized weakness, age related physical debility [facility] Work Phone: Evaluation note* Diagnosis Onset Date Resolution Status Acute kidney injury acute Acute kidney injury superimp osed on chronic kidney disease acute Altered mental status acute Dehydration acute Dizziness acute Metabolic encephalopathy acu te [facility] Work Phone: Evaluation note No assessment recorded. [place] - AT YOUR DOOR: VISITING HEALTHCARE S History general Narrative - ReportedNo medical history recorded.[place] - AT YOUR DOOR: [facility]ING [facility]ALTH[facility] S Hospital Discharge instructions* Attachments The following attachments cannot be sent through Care Everywhere. * Dehydration ([place]ian Surinamese) * Renal Failure: Acute ([place]) [facility] Discharge instructions Additional Instructions Watch for sedation while taking [place] as prescribed. Follow-up with orthopedics for outpatient reevaluation of L1 compression fracture, call orthopedic office today and schedule follow-up appointment. Return to ER if symptoms worse or any other problem. Fall precautions to be maintained by staff at patient's assisted living facility. Call the orthopedic clinic in [place] for follow-up of your orthopedic needs. Walk-in and same day appointments are available and welcome! [phone] [facility] Work Phone: Reason for referral (narrative)No reason for referral information availableAdena [facility] Work Phone: Summary Purpose Family History Relationship [...] 30, 2016 6:16pm Notes:Father: Cardiac Disord er, [place] Relationship Condition Age at Onset Recorded Date/T marjorie Father Cardiac?Cardiac Diso rder(s), Myocardial Infarction Unknown July 20, 2025 8:51am Mother Cancer History?Breast Cancer Unknown July 20, 2025 8:51am Unknown Respiratory?Respirat ory Disorder(s) Unknown April 30, 2016 7:16pm Advance Directives Documents on File Type Date Recorded Patient Atm Manager Expl anation Advance Directives and Livin g Will Advance Directives and Livin g Will 04/09/2014 10:20 AM No Ad Power of Financial Processing Clerk Documents on File Type Date Recorded Patient Atm Manager Expl anation Advance Directives and Livin g Will Advance Directives and Livin g Will 04/09/2014 10:20 AM No Ad Power of Financial Processing Clerk Documents on File Type Date Recorded Patient Atm Manager Expl anation Advance Directives and Livin g Will Power of Financial Processing Clerk Advance Directives and Livin g Will 04/09/2014 10:20 AM No Ad Advance Directive Response Recorded Date/ Time Advance Directives No August 11:52pm Advanced Directive on File No Novem re 2021 11:52pm Advance Directive Response Recorded Date/ [...] 4:25pm Advanced Directive on File No Octob 2024 4:25pm Reason for Referral Status Reason Specialty Diagnoses / Procedures Referred By Contact Referred To Contact Closed Heart and Vascul ar Diagnostics Diagnoses 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 Procedures Nuclear Stress Test - Pharmacological CV STRS TST XERS&/OR RX CONT ECG TRCG ONLY MYOCARDIAL SPECT MULTIPLE STUDIES Gorge Colon MD [address] [place] [address] [address] [place] [address] Status Reason Specialty Diagnoses / Procedures Referred By Contact Referred To Contact Closed Heart and Vascul ar Diagnostics Diagnoses Dizziness Procedures Holter Monitor complete <48 hours Order Gorge Colon MD [address] [place] [address] [address] [place] [address] Status Reason Specialty Diagnoses / Procedures Referred By Contact Referred To Contact Closed Heart and Vascul ar Diagnostics Diagnoses Type 2 diabetes mellitus without complication, without long-term current use of insulin (HCC) Dizziness 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 Procedures Echocardiogram complete (M-Mode/2D) Gorge Colon MD [address] [place] [address] [address] [place] [address] Status Reason Specialty Diagnoses / Procedures Referre d By Contact Referred To Contact Closed Radiology Diagnoses Altered mental status, unspecified altered mental status type Obstructive sleep apnea Procedures MRI Brain Without IV Contrast Angelo Estrella MD [address] [place] [address] General Radiology [address] [place] [address] Status Reason Specialty Diagnoses / Procedures Referred By Contact Referred To Contact Closed Sleep Medicine Diagnoses Obstructive sleep apnea Procedures Polysomnography 4 or more parameters with CPAP Angelo Estrella MD [address] [place] [address] [facility] Sleep Disorders [address] [address] Assessments Diagnosis 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 Diagnosis Dizziness Dizziness and giddiness Diagnosis Type 2 diabetes mellitus without complication, without long-term current use of insulin (HCC) Dizziness Dizziness and giddiness 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 Diagnosis Type 2 [...] Admit Date 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 Procedures Nuclear Stress Test - Pharmacological CV STRS TST XERS&/OR RX CONT ECG TRCG ONLY MYOCARDIAL SPECT MULTIPLE STUDIES Gorge Colon MD [address] [place] [address] [address] [place] [address] Status Reason Specialty Diagnoses / Procedures Referred By Contact Referred To Contact Closed Heart and Vascul ar Diagnostics Diagnoses Dizziness Procedures Holter Monitor complete <48 hours Order Gorge Colon MD [address] [place] [address] [address] [place] [address] Status Reason Specialty Diagnoses / Procedures Referred By Contact Referred To Contact Closed Heart and Vascul ar Diagnostics Diagnoses Type 2 diabetes mellitus without complication, without long-term current use of insulin (HCC) Dizziness 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 Procedures Echocardiogram complete (M-Mode/2D) Gorge Colon MD [address] [place] [address] Hvd Echo [address] [place] [address] Status Reason Specialty Diagnoses / Procedures Referre d By Contact Referred To Contact Closed Radiology Diagnoses Altered mental status, unspecified altered mental status type Obstructive sleep apnea Procedures MRI Brain Without IV Contrast Angelo Estrella MD [address] [facility], [place] [address] General Radiology [address] [place] [address] Status Reason Specialty Diagnoses / Procedures Referred By Contact Referred To Contact Closed Sleep Medicine Diagnoses Obstructive sleep apnea Procedures Polysomnography 4 or more parameters with CPAP Angelo Estrella MD [address] [facility] [address] [place] [address] s Sleep Disorders [address] [facility] [address] [place] [address] Reason Comments Provider Referral Blood Infection Care Teams (unrecognized sec tion and content) Instructional Technology Instructor Relationship Specialty Start Date End Date Xiao Valentine FNP [address] [facility] [address] [place] [address] PCP - General Nurse Practitioner-Family 02/09/21 Gorge Colon MD [address] [place] [address] Physician Cardiology 04/07/20 Nancy Underwood APRN [employer] [address] [place] [address] Nurse Practitioner Cardiology 04/07/20 Monalisa Arevalo APRN [employer] [address] [facility] [address] [place] [address] Nurse Practitioner Cardiology 08/10/20 Team Status: Active Member Role Status Dates LINDSEY LANDAVERDE Primary Care Provider Active Start : August 31, 2022 SARAHI MCNAMARA MD Emergency Provider Active Sta rt: August 31, 2022 TYREE GOODEN next of kin Active Team Status: Active Member Role Status Dates XIAO VALENTINE Primary Care Provider Active Start: June 01, 2023 VALENTE PARKER MD Emergency Provider Active St art: [...] Care Provider Active Start: December 22, 2023 DEINZ MCPHERSON MD Emergency Provider Active Start : December 22, 2023 PRESTON BERKOWITZ MD Admit Provider Active Start: December 22, 2023 PRESTON BERKOWITZ MD Attending Provider Active Sta rt: December 22, 2023 [facility] Attending Provider Active Start: [facility] 2023 TYREE GOODEN next of kin Active [...] BE BASED ON THE PRIMARY CLINICAL RECORDS. [facility]. provides no warranty or guarantee of the accuracy or completeness of information in this document.
--- NOTE | 2025-09-27 20:17 | RAD_ITS ---
PROCEDURE: CHEST 1 VIEW 09/27/2025 REASON FOR EXAM: WEAKNESS TECHNIQUE: Frontal view of the chest. FINDINGS: Subtle increased opacification in the medial aspect throughout upper lung could represent developing infiltrates. The remainder of the lungs is clear. The cardiac silhouette is borderline enlarged. Diffuse osteopenia. No acute osseous abnormality. RAD/Chest 1 View IMPRESSION: As above. Reading Location: [id number]
[2025-09-27 23:25] LABS: Mucous, Urine 0 SEEN /hpf (<or=2+); Squamous Epithelial Cells - UA 0 SEEN /hpf (0-5)
[2025-09-27 23:27] LABS: Color, Urine Yellow (Yellow); Glucose, Dipstick Normal (Normal); Ketone-Dipstick 5 mg/dl (Negative); Leukocyte Esterase-Dipstick Negative /ul (Negative); Nitrite-Dipstick Negative (Negative); Occult Blood-Urine 250 /ul (Negative); Protein-Dipstick 30 mg/dl (Negative); Specific Gravity, Urine 1.020 (1.002-1.030); Urine Bilirubin Dipstick Negative (Negative)
[2025-09-27 23:39] LABS: Red Blood Cells-Urine 50-100 SEEN /hpf (0-5)
== END 2025-09-28 02:09 | disposition home or self-care (01) ==
PROVIDERS: Emergency Provider Emergency Medicine; PCP Internal Medicine; Visit Provider Emergency Medicine
DX: K92.2 Gastrointestinal hemorrhage, unspecified (principal); F03.90 Unspecified dementia, unspecified severity, without behavioral disturbance, psychotic disturbance, mood disturbance, and anxiety; E11.9 Type 2 diabetes mellitus without complications; I12.9 Hypertensive chronic kidney disease with stage 1 through stage 4 chronic kidney disease, or unspecified chronic kidney disease; Z87.891 Personal history of nicotine dependence; Z79.01 Long term (current) use of anticoagulants; J45.909 Unspecified asthma, uncomplicated; K21.9 Gastro-esophageal reflux disease without esophagitis; Z79.899 Other long term (current) drug therapy
CPT/HCPCS: 71045; 80053; 81001; 85025; 99285; A4216